=== PATIENT | male | born 1965 | race Caucasian/White ===

== ENCOUNTER → 2017-11-25 | Outpatient (CLI) | payer MEDICARE, OTHER ==
--- NOTE | 2017-11-25 10:18 | XR ---
EXAMINATION TYPE: XR toes RT DATE OF EXAM: 11/25/2017 COMPARISON: 06/17/2017 HISTORY: Right toe infection. Assess for osteomyelitis. TECHNIQUE: 2 views of the right great toe/first digit were obtained. FINDINGS: There is bony reabsorption, cortical erosion, and periosteal reaction of the distal phalanx of the right first digit. This is a distinct change from the prior radiograph of 06/17/2017. There i s overlying soft tissue swelling and distal dorsal ulceration. Small vessel atherosclerosis is seen s uggestive of underlying peripheral arterial disease. Chronic deformity and dislocation/severe subluxa tion of the second metatarsophalangeal joint as partially visualized. Hallux valgus deformity is seen as well as degenerative changes of the first metatarsal phalangeal joint and interphalangeal joint. IMPRESSION: New osseous erosion, destruction and reabsorption of greater than 50% of the distal phala nx of the first digit with periosteal reaction, soft tissue swelling and dorsal ulceration compatible with sequela of osteomyelitis. Additional chronic changes as described above.
== END | disposition home or self-care (01) ==
LOC: RADXRMAIN 09:37
PROVIDERS: ATTEND Podiatrist
DX: M79.89 Other specified soft tissue disorders (principal); M20.11 Hallux valgus (acquired), right foot

== ENCOUNTER → 2017-11-30 | Outpatient (CLI) | payer MEDICARE, OTHER ==
--- NOTE | 2017-11-30 15:35 | US ---
EXAMINATION TYPE: US venous doppler duplex LE RT DATE OF EXAM: 11/30/2017 1:36 PM COMPARISON: LOWER EXTREMITY VENOUS INSUFFICIENCY Right leg pain and right great toe wound. Left leg amputee. SIDE PERFORMED: Right 1) Color flow is present and patency is documented in the following vessels. No DVT or SVT is noted . EIV Common Femoral Vein Deep Femoral Vein Femoral Vein Popliteal Vein Proximal Calf Veins Greater Saph Vein Upper Small Saph Vein 2) There is venous reflux noted at the following venous levels: No reflux noted. IMPRESSION: 1. No venous reflux noted within the right lower extremity. 2. No incidental note made of deep venous thrombosis right lower extremity.
--- NOTE | 2017-12-06 09:48 | P.ARTDOP ---
Arterial Doppler LOWER EXTREMITY ARTERIAL DOPPLER: DATE OF SERVICE: 11/30/2017 Reason for study: Right great toe ulcer. Status post left leg amputation.. Doppler waveforms: Multiphasic on the right throughout. Pulse volume recording: Mild blunting throughout. Pressure gradients: None. Ankle-brachial indices: Greater than 1. Toe pressures: [] on the right, [] on the left Impression: Normal limited study.
== END | disposition home or self-care (01) ==
LOC: RADUSWWP 13:06
PROVIDERS: ATTEND Podiatrist
DX: M79.604 Pain in right leg (principal); M79.605 Pain in left leg
CPT/HCPCS: 93923

== ENCOUNTER → 2017-12-16 | Outpatient (CLI) | payer MEDICARE, OTHER ==
--- NOTE | 2017-12-16 14:00 | XR ---
EXAMINATION TYPE: XR foot complete RT DATE OF EXAM: 12/16/2017 CLINICAL HISTORY: Osteomyelitis of the right foot. TECHNIQUE: Frontal, lateral, and oblique images of the right foot are obtained. COMPARISON: None FINDINGS: There is extensive destructive osseous change of the distal phalanx of the great toe/first digit with only fragments remaining, a distinct change from prior of 06/17/2017. Small vessel atheros clerosis is noted lateral to the first metatarsal. Hallux valgus deformity is seen. Osteotomy defects from prior amputation of portions of the third, fourth, and fifth left digits and metatarsals are se en. There is chronic dislocation of the second distal interphalangeal joint with lateral displacement . Overlying soft tissue swelling is mild generalized. Small plantar heel spurs also seen. IMPRESSION: Or significant progression in osseous destructive change from sequela of osteomyelitis of the distal phalanx of the first digit with extensive adjacent small vessel atherosclerosis presumabl y from peripheral vascular disease an overlying soft tissue swelling. Other chronic changes are noted above.
== END ==
LOC: RADXRMAIN 12:15
PROVIDERS: ATTEND Podiatrist
DX: M86.8X7 Other osteomyelitis, ankle and foot (principal); E13.621 Other specified diabetes mellitus with foot ulcer

== ENCOUNTER → 2018-04-21 | Day surgery (SDC) | payer MEDICARE, OTHER ==
[2018-04-18 12:33] VITALS: BMI 38.1
[~2018-04-21] MED LIST: DEXAMETHASONE SOD PHOSPHATE 10 MG/ML 1 ML VIAL IV ONE; LACTATED RINGERS 1,000 ML IV ONE; LACTATED RINGERS 1,000 ML IV SCH; LIDOCAINE 1% 20 ML VIAL (10MG/ML) FOR IV START INTRADERMA ONE; LIDOCAINE 2% (PF) 20 MG/ML 2 ML VIAL INTRAARTIC ONE; MIDAZOLAM 2 MG/2 ML VIAL IV PRN; MIDAZOLAM 2 MG/2 ML VIAL ONE; ONDANSETRON 4 MG/2 ML VIAL IVP ONE; PROPOFOL 10 MG/ML 20 ML VIAL IV ONE; SCOPOLAMINE 1.5MG/72HR PATCH TRANSDERM ONE; diphenhydrAMINE 50 MG/ML 1 ML VIAL ONE; fentaNYL (PF) 50 MCG/ML 2 ML AMP IV PRN; fentaNYL (PF) 50 MCG/ML 2 ML AMP ONE
[2018-04-21 06:10] VITALS: TEMP 97.9
[2018-04-21 06:20] LABS: Glucose,Whole Blood 103 mg/dL (75-99)
[2018-04-21 08:22] LABS: Glucose,Whole Blood 76 mg/dL (75-99)
--- NOTE | 2018-04-21 08:37 | FL ---
Fluoroscopy History: Rt Great Toe Amp. 1sec fluoro time
[2018-04-21 08:42] VITALS: RESP 18
[2018-04-21 08:55] VITALS: BP 129/70; PULSE 87
--- NOTE | 2018-04-21 09:08 | P.OP ---
Date of Procedure: 04/21/18 Preoperative Diagnosis: Osteomyelitis right hallux Postoperative Diagnosis: Same Procedure(s) Performed: Modified distal Symes amputation right hallux Anesthesia: local Surgeon: Navarro Kamara Pathology: none sent Condition: stable Disposition: same day Indications for Procedure: Osteomyelitis right hallux Operative Findings: Consistent with clinical findings Description of Procedure: Patient presented to the OR 2 hours prior to foot surgery. Patient was stable after review of preop H&P labs radiographs consent no counter indication to the procedure was determined. Patient was brought to the OR and placed on the OR table in supine position. The right foot was then prepped and draped in the usual aseptic manner. Attention was then directed to the right hallux where the right hallux anesthetized using a total of 4 mL of 2% Xylocaine plain. A digital tourniquet was then applied. A linear incision was then made running from the distal aspect of the right hallux along the medial border of the right hallux nail fold to the area just proximal to the interphalangeal joint medially and dorsally. A second incision was made starting just proximal to the proximal nail fold and ending at the distal aspect of the first incision so as to remove a wedge of nail bed and nail matrix. This incision was carried down through superficial and deep fascia removing a block of tissue incorporating the nail matrix and nailbed. The wound was then carried down to the osseous tissue where the wound edges were then undermined along the dorsal aspect of the proximal phalanx of the hallux as well as the medial and lateral surface of the distal one third of the phalanx proximal. Using a sagittal saw approximately one third of the head and shaft of the proximal phalanx distally was removed and retained for pathological evaluation examination of the specimen showed some erosive changes and softening of bone plantar medially consistent with osteomyelitis. The soft tissue was then examined and several specimens of osteomyelitic bone were removed from the remaining distal phalanx. The area was copiously lavaged with sterile saline. Intraoperative radiographs were then made and this showed removal of all fragmentation of osteomyelitic bone of the distal phalanx. Also adequate removal of the proximal phalanx was removed. The wound was copiously lavaged with sterile saline solution and closed in layers using 3-0 Vicryl simper up to sutures. Skin edges were repaired with 4-0 nylon horizontal mattress sutures. The digital tourniquet was removed and adequate vascular return was noted to the right hallux. The foot and wound were then dressed with Adaptic 4 x 4's Kerlix and an Junior wrap wrapped moderate compression to secure to the foot and ankle. The patient was brought to the recovery room from the OR having tolerated procedure and anesthesia well. Patient was monitored until stable and discharged with postop instructions partial weightbearing right with surgical shoes normal diet resume all meds keep foot dry and dressing intact ice and elevate as instructed and return to clinic for follow-up on Tuesday.
== END | disposition home or self-care (01) ==
LOC: OR 05:42
PROVIDERS: ATTEND Podiatrist
DX: M86.9 Osteomyelitis, unspecified (principal); I25.10 Atherosclerotic heart disease of native coronary artery without angina pectoris; I13.0 Hypertensive heart and chronic kidney disease with heart failure and stage 1 through stage 4 chronic kidney disease, or unspecified chronic kidney disease; E11.22 Type 2 diabetes mellitus with diabetic chronic kidney disease; E11.51 Type 2 diabetes mellitus with diabetic peripheral angiopathy without gangrene; F17.210 Nicotine dependence, cigarettes, uncomplicated; N18.3 Chronic kidney disease, stage 3 (moderate); I50.30 Unspecified diastolic (congestive) heart failure; Z79.4 Long term (current) use of insulin; D63.1 Anemia in chronic kidney disease; E78.00 Pure hypercholesterolemia, unspecified; J44.9 Chronic obstructive pulmonary disease, unspecified; E87.5 Hyperkalemia; E87.2 Acidosis; R31.29 Other microscopic hematuria; E83.42 Hypomagnesemia; E55.9 Vitamin D deficiency, unspecified; Z82.49 Family history of ischemic heart disease and other diseases of the circulatory system; Z79.82 Long term (current) use of aspirin; Z79.891 Long term (current) use of opiate analgesic; Z79.899 Other long term (current) drug therapy; Z79.51 Long term (current) use of inhaled steroids; Z88.5 Allergy status to narcotic agent; Z88.7 Allergy status to serum and vaccine
CPT/HCPCS: 88304; 88311; 73660; 28124; J2250; J1200; J1100; J0690; J2405; J3010; J2704; J2001

== ENCOUNTER 2019-03-13 06:45 | Day surgery (SDC) | payer MEDICARE, OTHER ==
[2019-03-09 13:57] VITALS: BMI 38.7
[~2019-03-13 06:45] MED LIST changes: -DEXAMETHASONE SOD PHOSPHATE 10 MG/ML 1 ML VIAL IV ONE; -LACTATED RINGERS 1,000 ML IV ONE; -LIDOCAINE 1% 20 ML VIAL (10MG/ML) FOR IV START INTRADERMA ONE; +LIDOCAINE 1% 20 ML VIAL (10MG/ML) FOR IV START INTRADERMA PRN; -LIDOCAINE 2% (PF) 20 MG/ML 2 ML VIAL INTRAARTIC ONE; -MIDAZOLAM 2 MG/2 ML VIAL IV PRN; -MIDAZOLAM 2 MG/2 ML VIAL ONE; -ONDANSETRON 4 MG/2 ML VIAL IVP ONE; -PROPOFOL 10 MG/ML 20 ML VIAL IV ONE; -SCOPOLAMINE 1.5MG/72HR PATCH TRANSDERM ONE; -diphenhydrAMINE 50 MG/ML 1 ML VIAL ONE; -fentaNYL (PF) 50 MCG/ML 2 ML AMP IV PRN; -fentaNYL (PF) 50 MCG/ML 2 ML AMP ONE
[2019-03-13 07:24] VITALS: TEMP 97.5
[2019-03-13 07:33] LABS: Glucose,Whole Blood 267 mg/dL (75-99)
[2019-03-13] MEDS ORDERED: PROPOFOL 10 MG/ML 20 ML VIAL IV ONE (07:41)
[2019-03-13] MEDS ORDERED: MIDAZOLAM 2 MG/2 ML VIAL ONE (07:41)
--- NOTE | 2019-03-13 08:48 | P.PCN ---
Date of Procedure: 03/13/19 Description of Procedure: BRIEF HISTORY: Patient is a 53-year-old pleasant male scheduled for an elective colonoscopy as a part of screening for malignant neoplasm of the colon. PROCEDURE PERFORMED: Colonoscopy with polypectomy. PREOPERATIVE DIAGNOSIS: Screening for malignant neoplasm of the colon, reports colonoscopy at the age of 39. ESTIMATED BLOOD LOSS: Minimal. IV sedation per Anesthesia. PROCEDURE: After informed consent was obtained, the patient, was brought into the endoscopy unit. IV sedation was administered by Anesthesia under continuous monitoring. Digital rectal examination was normal. Initially the Olympus CF-190 flexible video colonoscope was then inserted in the rectum, gradually advanced into the cecum without any difficulty. Careful examination was performed as the scope was gradually being withdrawn. Ileocecal valve and the appendiceal orifice were visualized and appeared normal. Prep was excellent. Mucosa of the cecum, ascending colon, transverse colon, descending colon, sigmoid colon, and rectum appeared normal. 2 sessile ascending colon polyps measuring 5 mm and 6 mm in size removed with cold snare polypectomy. 3 sessile transverse colon polyps, with 2 measuring 4 and 5 mm in size removed with cold snare polypectomy and one measuring 1.3 cm in size removed with hot snare polypectomy. 3 sessile descending colon polyps measuring 2 mm, 4 mm and 5 mm removed with cold snare polypectomy. A second more distal descending colon polyp which was flat in nature and removed with cold snare polypectomy measuring 4 mm in size. A 3 mm sessile sigmoid colon polyp removed with cold snare polypectomy. Mild left- sided colonic diverticulosis. Retroflexion was performed in the rectum and no lesions were seen. Colon was somewhat spastic making complete visualization of the mucosa difficult. The patient tolerated the procedure well. IMPRESSION: 10 polyps removed with combination of cold snare and hot snare polypectomy (please see report for location and technique). Mild left colonic diverticulosis. Spastic colon. RECOMMENDATIONS: Findings of this examination were discussed with the patient and his friend. Okay to resume diet. Await pathology from polypectomy. Would recommend repeat colonoscopy in one year given the number of polyps removed, pending pathology.
[2019-03-13 09:04] VITALS: BP 142/80; PULSE 77; RESP 18
== END 2019-03-13 09:38 | disposition home or self-care (01) ==
LOC: ORWHC2ENDO 06:45
PROVIDERS: ATTEND Internal Medicine
DX: Z12.11 Encounter for screening for malignant neoplasm of colon (principal); K57.30 Diverticulosis of large intestine without perforation or abscess without bleeding; K58.9 Irritable bowel syndrome, unspecified; D12.2 Benign neoplasm of ascending colon; D12.3 Benign neoplasm of transverse colon; D12.4 Benign neoplasm of descending colon; D12.5 Benign neoplasm of sigmoid colon; Z88.5 Allergy status to narcotic agent; Z88.8 Allergy status to other drugs, medicaments and biological substances; I25.10 Atherosclerotic heart disease of native coronary artery without angina pectoris; I25.2 Old myocardial infarction; E78.5 Hyperlipidemia, unspecified; I11.0 Hypertensive heart disease with heart failure; I50.9 Heart failure, unspecified; E11.51 Type 2 diabetes mellitus with diabetic peripheral angiopathy without gangrene; F17.200 Nicotine dependence, unspecified, uncomplicated; J44.9 Chronic obstructive pulmonary disease, unspecified; G47.33 Obstructive sleep apnea (adult) (pediatric); Z99.89 Dependence on other enabling machines and devices; Z89.512 Acquired absence of left leg below knee; M10.9 Gout, unspecified; K21.9 Gastro-esophageal reflux disease without esophagitis; Z79.82 Long term (current) use of aspirin; Z79.891 Long term (current) use of opiate analgesic; Z79.899 Other long term (current) drug therapy; Z79.4 Long term (current) use of insulin
CPT/HCPCS: 88305; 45385; J2250; J2704

== ENCOUNTER 2019-06-21 10:50 | Inpatient (IN) | payer MEDICARE ==
[2019-06-21] MEDS ORDERED: fentaNYL (PF) 50 MCG/ML 2 ML AMP ONE (12:31)
[2019-06-21] MEDS ORDERED: fentaNYL (PF) 50 MCG/ML 2 ML AMP IVP ONE (12:32)
[2019-06-21] MEDS ORDERED: BIVALIRUDIN BOLUS 250 MG/50 ML IV ONE (12:39)
[2019-06-21] MEDS ORDERED: NITROGLYCERIN 1000MCG/10ML SYRINGE INTRACORON ONE (12:40)
[2019-06-21] MEDS ORDERED: BIVALIRUDIN 250 MG in SODIUM CHLORIDE 0.9% 50 ML IV ONE (12:40)
[2019-06-21] MEDS ORDERED: IV FLUID CONTINUATION 1,000 ML IV ONE (12:40)
[2019-06-21] MEDS ORDERED: IOPAMIDOL-370 125ML BTL INJ ONE (12:54)
[2019-06-21] MEDS ORDERED: MAG HYDROX/AL HYDROX/SIMETH 30 ML CUP PO PRN (13:06)
[2019-06-21] MEDS ORDERED: RX INFO: IV CONTRAST WAS GIVEN 1 EACH MISC MISCELLANE PRN (13:06)
[2019-06-21] MEDS ORDERED: ATROPINE SULFATE 0.1 MG/ML 10ML SYRINGE IV PRN (13:06)
[2019-06-21] MEDS ORDERED: NITROGLYCERIN SL TABS 0.4 MG TAB SUBLINGUAL PRN (13:06)
[2019-06-21] MEDS ORDERED: ZOLPIDEM 5 MG TAB PO PRN (13:06)
[2019-06-21] MEDS ORDERED: SODIUM CHLORIDE 0.9% 1,000 ML IV SCH (13:15)
--- NOTE | 2019-06-21 13:33 | PTCA ---
PERCUTANEOUSTRANS CORORONARY ANGIOGRAPHY Mr. Meier is a 53-year-old male with known history of end-stage renal disease on hemodialysis for 5 years, who presented to [facility] with symptoms of chest discomfort and had evidence consistent with non ST-segment elevation myocardial infarction. In view of that, he underwent cardiac catheterization by Dr. Spangler and was found to have critical stenosis involving the mid right coronary artery. He was transferred to [facility] to undergo further intervention. The risks as well as complications of the procedure were discussed with the patient who is in full understanding and agreement. PROCEDURE: Patient was brought to [facility] in a fasting semi-sedated state after receiving fentanyl and Benadryl. Using guidewire exchange technique, 6-Botswanan sheath was exchanged in the right femoral artery. Following that, the 6-Botswanan FR4 guiding catheter introduced in the system. After cannulating the right coronary ostium, a 0.014 balanced medium weight J-wire was advanced across the lesion, positioned distally. Following that, a 0.014 balanced medium weight J-wire was advanced across the lesion, positioned distally. Following that, a 2.5 x 12 mm Trek balloon was advanced and one inflation at 8 atmospheres was done. Following that the balloon was removed and a 3.0 x 15 mm Xience Fouzia stent was advanced, deployed and postdilated at 16 atmospheres. After the last inflation, after appropriate wait the balloon and the guidewire were withdrawn back in the guiding catheter. Images were obtained, repeated. Those images reveal stable successful stenting. At that point, the guiding catheter, the balloon and the guidewire were removed. The sheath was removed. Hemostasis was obtained with an Angio-Seal. There was no immediate complication. Patient was returned to his room in stable condition. Of note, the patient had no chest discomfort or EKG changes with inflation. He received Angiomax per protocol and was continued on clopidogrel. RESULTS: Successful stenting of the mid right coronary artery with reduction of stenosis from 90% to 0%. RECOMMENDATION: Patient will be continued on aspirin, Plavix and statin. The importance of dual antiplatelet treatment was discussed with the patient and his family and they are in full understanding and agreement. Duration of procedure is 22 minutes. MMODL / IJN: [id number] /
--- NOTE | 2019-06-21 13:33 | LTR ---
June 21, 2019 Re: Abdifatah Meier Dear Dr. Harris: I had the opportunity to perform coronary angioplasty and stenting on Mr. Meier at [facility] on the 21 of June and a full copy of the procedure note will be forwarded to you. In brief, he underwent successful stenting of his mid right coronary artery. I am hopeful that this procedure will stabilize his status. Thank you again for allowing me the opportunity to participate in his care. Please feel free to call for any questions. Sincerely yours, MD RACHID DarbyL / RODRÍGUEZN: [id number] /
[2019-06-21 13:59] LABS: Glucose,Whole Blood 160 mg/dL (75-99)
[2019-06-21] MEDS: oxyCODONE-APAP 10-325MG 1 EACH TAB PO PRN ×2 (15:09→21:05)
[2019-06-21 17:14] LABS: Glucose,Whole Blood 174 mg/dL (75-99)
[2019-06-21] MEDS ORDERED: KETOROLAC 0.5% OPHTH DROPS 5 ML BTL BOTH EYES PRN (17:59)
[2019-06-21] MEDS: CALCITRIOL 0.25 MCG CAP PO SCH (19:02)
[2019-06-21] MEDS: PANTOPRAZOLE 40 MG TABLET PO SCH (19:06)
[2019-06-21] MEDS ORDERED: IPRATROPIUM-ALBUTEROL 3 ML NEB INHALATION SCH (20:00)
[2019-06-21] MEDS: ATORVASTATIN 80 MG TAB PO SCH (20:01)
[2019-06-21 20:39] LABS: Glucose,Whole Blood 208 mg/dL (75-99)
[2019-06-21] MEDS ORDERED: FUROSEMIDE 40 MG TAB PO SCH (21:00)
[2019-06-21] MEDS ORDERED: INSULIN REGULAR SQ SCH (21:00)
[2019-06-21] MEDS ORDERED: METOPROLOL TARTRATE 25 MG TAB PO SCH (21:00)
[2019-06-21] MEDS ORDERED: DOCUSATE 100 MG CAP PO SCH (21:00)
[2019-06-21] MEDS ORDERED: INSULIN REGULAR 100 UNIT/ML VIAL SQ SCH (21:00)
[2019-06-21] MEDS ORDERED: ATORVASTATIN 10 MG TAB PO SCH (21:00)
[2019-06-21] MEDS: INSULIN ASPART (NovoLOG) 100 UNIT/ML VIAL SQ SCH (21:04)
[2019-06-21] MEDS ORDERED: GABAPENTIN 100 MG CAP PO SCH (22:00)
[2019-06-21] MEDS ORDERED: MAGNESIUM OXIDE 400 MG TAB PO SCH (22:00)
--- NOTE | 2019-06-21 23:18 | P.HPIM ---
History of Present Illness H&P Date: 06/21/19 Chief Complaint: RCA lesion History of presenting complaint: This is a pleasant 53-year-old patient who was transferred from [facility] here this morning. Patient was admitted there with shortness of breath and wheezing cough. Admitted with a diagnosis of CHF exacerbation and COPD exacerbation. Patient has known chronic kidney disease. Patient renal function had worsened. Patient started on hemodialysis. Patient had ruled out for acute non-Q-wave microinfarction. Patient did undergo cardiac catheterization today. Was found to have critical mid RCA lesion. Hence he was transferred down here. Patient did get a stent placed. Patient has been [facility] hemod[facility]. Hemodialysis catheter was placed per Dr. Tay from vascular surgery. This evening patient's current or chest pain. Breathing is better. Some wheezing. Did tolerate her supper. Patient also had a Copeland catheter placed at the other hospital. Patient's girlfriend is present with him. Review of systems: GEN.: Tired EYES: None HEENT: None NECK: None RESPIRATORY: Some wheezing shortness of breath CARDIOVASCULAR: None GASTROINTESTINAL: None GENITOURINARY: Copeland catheter MUSCULOSKELETAL: Chronic back pain and LYMPHATICS: None HEMATOLOGICAL: None PSYCHIATRY: None NEUROLOGICAL: Peripheral numbness Past medical history to include: Congestive heart failure from gastric dysfunction, COPD, diabetes, hyperlipidemia, hypertension, chronic kidney disease, obstructive sleep apnea, peripheral arterial disease, left below-knee habitation, shingles, Social history: Smokes about half pack a day smoking for close to 35 years occasional marijuana. Physical examination: VITAL SIGNS: 97.8, 67, 18, 153/77, 93% on 3 L GENERAL: BMI 40.1, sitting on bed not in distress. EYES: Pupils equal. Conjunctiva normal. HEENT: External appearance of nose and ears normal, oral cavity grossly normal. NECK: JVD not raised; masses not palpable. HEART: First and second heart sounds are normal; no edema. LUNGS: Respiratory rate increased, decreased breaths on some wheezing. ABDOMEN: Soft, nontender, liver spleen not palpable, no masses palpable. PSYCH: Alert and oriented x3; mood and affect normal. NEUROLOGICAL: Cranial nerves grossly intact; no facial asymmetry, power and sensation grossly intact. LYMPHATICS: No lymph nodes palpable in the axilla and neck MUSCULOSKELETAL:-Left below-knee habitation Investigations: [id number], 174, 208 Assessment: -Acute non-Q-wave microinfarction -Cardiac catheterization with stent to the mid RCA -Acute on chronic congestive heart failure from diastolic dysfunction EF of 40- 60% -Acute COPD exacerbation in a current smoker -Hyperlipidemia -Hypertensive heart disease -Chronic kidney disease stage IV progress to end-stage kidney disease currently on hemodialysis -Obstructive sleep apnea uses CPAP machine -Peripheral arterial disease -Left below-knee amputation with a prosthesis -Morbid obesity BMI 40.1 -Chronic nicotine dependence patient cigarette smoker -Chronic low back pain with arthritis -Depression otherwise specified Plan: Patient's home medications resumed. As discussed with the patient 2 days ago patient will not be put back on his MS Contin as she gets very drowsy. Hemodialysis is to continue. Accu-Chemadeline will be followed. Care was discussed with the patient question were answered. Patient probably will need hemodialysis tomorrow. Further plans after discussing with cardiology and nephrology. Depressed bronchodilators continue. Past Medical History Past Medical History: Heart Failure, COPD, Diabetes Mellitus, Eye Disorder, Hyperlipidemia, Hypertension, Myocardial Infarction ([place]), Renal Disease, Respiratory Disorder, Sleep Apnea/CPAP/BIPAP, Vascular Disorder Additional Past Medical History / Comment(s): Poor circulation in hands and legs/feet. lt foot bka, has prosthesis, past shingles 1997(face), " I take allopurinol to prevent gout", "on 2 occassions had dialysis, once in [place] and in [place]. none currently, has muscle disorder in eye Last Myocardial Infarction Date:: 2014 History of Any Multi-Drug Resistant Organisms: MRSA Date of last positivie culture/infection: approx 2015 MDRO Source:: right foot Past Surgical History: Hernia Repair, Tonsillectomy Additional Past Surgical History / Comment(s): Right foot 3rd and 4th AND 5TH toes and area of foot amputated, cyst on scrotum removed. partial amp lt foot but had non healing wound which resulted in lt bka. matilde cataracts removed-has lens implants. x3 rt inguinal hernia sx and an umb hernia repair. Past Anesthesia/Blood Transfusion Reactions: No Reported Reaction Additional Past Anesthesia/Blood Transfusion Reaction / Comment(s): States he was in the ICU after his surgery on his toes, but does not know why. Past Psychological History: Depression, Panic Disorder Additional Psychological History / Comment(s): Single, has been in extended care for several months and is now just gone home. Since arriving home he denied having increasing difficulties with his limbs, his glucose and his tobacco use. Smoking Status: Current every day smoker Past Alcohol Use History: None Reported Additional Past Alcohol Use History / Comment(s): started smoking at age 19 (off and on) currently smoking 1/2 ppd Past Drug Use History: None Reported Additional Drug Use History / Comment(s): Occas.past marijuana use. STATES NO CURRENT DRUG USE - Past Family History Father History Unknown: Yes Mother Family Medical History: Cancer, Coronary Artery Disease (CAD) Additional Family Medical History / Comment(s): Brain tumor, [place] syndrome Sister(s) Family Medical History: No Reported History Medications and Allergies Home Medications Medication Instructions Recorded Confirmed Type Isosorbide Mononitrate ER [Imdur] 60 mg PO DAILY 06/09/15 06/21/19 History Lovastatin [Mevacor] 40 mg PO HS 06/17/17 06/21/19 History Docusate [Colace] 100 mg PO BID #60 cap 07/02/17 06/21/19 Rx Gabapentin [Neurontin] 100 mg PO TID #90 cap 07/02/17 06/21/19 Rx Pantoprazole [Protonix] 40 mg PO AC-BID #60 tablet. 07/02/17 06/21/19 Rx Morphine Sulfate [Morphabond ER] 15 mg PO Q12H 07/18/17 06/21/19 History Tamsulosin [Flomax] 0.4 mg PO DAILY 04/14/18 06/21/19 History Loratadine [Claritin] 10 mg PO DAILY 04/18/18 06/21/19 History FLUoxetine HCL [PROzac] 60 mg PO DAILY 12/26/18 06/21/19 History Magnesium Oxide 400 mg PO TID 12/26/18 06/21/19 History Albuterol Inhaler [Ventolin Hfa 1 - 2 puff INHALATION RT-Q6H PRN 03/09/19 06/21/19 History Inhaler] Albuterol Nebulized [Ventolin 2.5 mg INHALATION Q4H PRN 03/09/19 06/21/19 History Nebulized] Allopurinol [Zyloprim] 200 mg PO DAILY 03/09/19 06/21/19 History Aspirin [Adult Low Dose Aspirin EC] 81 mg PO DAILY 03/09/19 06/21/19 History Calcitriol 0.25 mcg PO MOTUWETHFR 03/09/19 06/21/19 History Furosemide [Lasix] 40 mg PO BID 03/09/19 06/21/19 History amLODIPine [Norvasc] 5 mg PO DAILY 03/09/19 06/21/19 History oxyCODONE-APAP 10-325MG [Percocet 1 tab PO Q6HR PRN 03/09/19 06/21/19 History 10-325 mg] Clopidogrel [Plavix] 75 mg PO DAILY 06/21/19 06/21/19 History Furosemide [Lasix] 40 mg PO DAILY 06/21/19 06/21/19 History Insulin Regular, Human [humulin R 50 unit SQ AC-SUPPER 06/21/19 06/21/19 History U-500 Kwikpen] Insulin Regular, Human [humulin R 50 units SQ AC-BRKFST 06/21/19 06/21/19 History U-500 Kwikpen] Insulin Regular, Human [humulin R 75 units SQ AC-LUNCH 06/21/19 06/21/19 History U-500 Kwikpen] Allergies Allergy/AdvReac Type Severity Reaction Status Date / Time codeine AdvReac headache, Verified 06/21/19 19:16 DIZZY, N/V hydrocodone [From Vicodin] AdvReac Nausea & Verified 06/21/19 19:16 Vomiting tramadol AdvReac Nausea & Verified 06/21/19 19:16 Vomiting Physical Exam Vitals: Vital Signs Temp Pulse Pulse Pulse Resp BP Pulse Ox 06/21/19 21:05 97.7 F 62 18 176/77 98 06/21/19 20:12 65 06/21/19 20:02 65 98 06/21/19 17:30 97.8 F 67 18 153/77 93 L 06/21/19 16:41 66 16 156/78 97 06/21/19 14:50 63 18 146/73 98 06/21/19 14:20 62 18 168/77 98 06/21/19 13:50 73 16 148/72 90 L Intake and Output 06/21/19 06/21/19 06/22/19 14:59 22:59 06:59 Intake Total 129 447 Output Total 775 Balance 129 -328 Intake: IV 129 225 Sodium Chloride 0.9% 1, 225 000 ml @ 75 mls/hr IV . [id number] COUNTS INCLUDE 234 BEDS AT THE [facility] Rx#:[id number] Oral 222 Output: Urine 775 Other: Voiding Method Indwelling Catheter Weight 126.8 kg 126.8 kg Results Labs: Abnormal Lab Results - Last 24 Hours (Table) 06/21/19 06/21/19 06/21/19 Range/Units 13:56 17:12 20:38 POC Glucose (mg/dL) 160 H 174 H 208 H (75-99) mg/dL Thrombosis Risk Factor Assmnt - Choose All That Apply Each Factor Represents 1 point: Abnormal pulmonary function (COPD), Age 41-60 years, Medical pt on bed rest, Obesity (BMI >25) Thrombosis Risk Factor Assessment Total Risk Factor Score: 4 Thrombosis Risk Factor Assessment Level: Moderate Risk
[2019-06-22 03:13] LABS: Glucose,Whole Blood 211 mg/dL (75-99)
[2019-06-22 06:40] LABS: Glucose,Whole Blood 209 mg/dL (75-99)
[2019-06-22] MEDS: PANTOPRAZOLE 40 MG TABLET PO SCH ×2 (06:58→20:32)
[2019-06-22] MEDS: INSULIN REGULAR 100 UNIT/ML VIAL SQ SCH ×3 (06:58→17:47)
[2019-06-22] MEDS: INSULIN ASPART (NovoLOG) 100 UNIT/ML VIAL SQ SCH ×4 (06:58→20:40)
[2019-06-22] MEDS ORDERED: INSULIN REGULAR 100 UNIT/ML VIAL SQ SCH ×3 (07:30→12:30)
[2019-06-22 08:05] LABS: Potassium 4.7 mmol/L (3.5-5.1)
[2019-06-22] MEDS ORDERED: ISOSORBIDE MONONITRATE ER 60 MG TAB.ER.24H PO SCH (09:00)
[2019-06-22] MEDS ORDERED: CLOPIDOGREL 75 MG TAB PO SCH (09:00)
[2019-06-22] MEDS ORDERED: ASPIRIN 81 MG PO SCH (09:00)
[2019-06-22] MEDS ORDERED: FUROSEMIDE 40 MG TAB PO SCH (09:00)
[2019-06-22] MEDS ORDERED: LORATADINE 10 MG TAB PO SCH (09:00)
[2019-06-22 11:51] VITALS: BMI 36.8
[2019-06-22 11:56] LABS: Glucose,Whole Blood 73 mg/dL (75-99)
--- NOTE | 2019-06-22 12:46 | P.PN ---
Subjective Progress Note Date: 06/22/19 this is a 53-year-old gentleman with history of end-stage renal disease on hemodialysis for 5 years who presented to [facility] with symptoms of chest discomfort and had evidence consistent with non-ST elevation myocardial infarction. He underwent a cardiac catheterization and was found to have a critical stenosis involving the mid RCA. He was transferred here to [facility] where the patient underwent angioplasty and stenting of the RCA.his blood pressure this morning 168/80, heart rate in the 70s, 93% on 3 L of oxygen. Sodium 139, potassium 4.7, BUN 51, creatinine 2.8.she is currently on Norvasc 5 mg daily, Ecotrin 81 mg daily, Lipitor 80 mg daily, Plavix 75 mg daily, Lasix 40 mg daily. We will increase his dose of metoprolol to 50 mg twice a day.he was seen and examined today, denied any chest discomfort and breathing is stable. He just complains of feeling tired. Objective - Vital Signs Vital signs: Vital Signs Temp 98.7 F 06/22/19 08:00 Pulse 71 06/22/19 08:00 Resp 20 06/22/19 08:00 BP 169/81 06/22/19 08:00 Pulse Ox 98 06/22/19 08:00 Intake & Output 06/21/19 06/22/19 06/22/19 18:59 06:59 18:59 Intake Total 576 120 Output Total 775 400 Balance -199 -280 Weight 126.8 kg 116.5 kg 116.5 kg Intake: IV 354 Sodium Chloride 0.9% 1, 225 000 ml @ 75 mls/hr IV . [id number] [facility] Rx#:[id number] Oral 222 120 Output: Urine 775 400 Other: Voiding Method Indwelling Catheter Indwelling Catheter # Bowel Movements 2 - Exam PHYSICAL EXAMINATION: GENERAL:D3-year-old gentleman in no acute distress at the time of my examination HEENT: Head is atraumatic, normocephalic. Pupils equal, round. Sclera anicteric. Conjunctiva are clear. Mucous membranes of the mouth are moist. Neck is supple. There is no elevated jugular venous pressure.no carotid bruit is heard. HEART EXAMINATION: [Heart S1, S2 normal. No murmur or gallop heard.] CHEST EXAMINATION:lungs reveal scattered coarse wheezing throughout ABDOMEN: [ Soft, nontender. Bowel sounds are heard. No organomegaly noted]. EXTREMITIES:[ 2+ peripheral pulse with no evidence of peripheral edema and no calf tenderness noted].Right groin soft, no evidence of any hematoma, left below the knee amputation NEUROLOGIC [patient is awake, alert and oriented 3.] . - Labs CBC & Chem 7: 06/22/19 07:08 Labs: Abnormal Lab Results - Last 24 Hours (Table) 06/21/19 06/21/19 06/21/19 Range/Units 13:56 17:12 20:38 Carbon Dioxide (22-30) mmol/L BUN (9-20) mg/dL Creatinine (0.66-1.25) mg/dL Glucose (74-99) mg/dL POC Glucose (mg/dL) 160 H 174 H 208 H (75-99) mg/dL 06/22/19 06/22/19 06/22/19 Range/Units 03:11 06:39 07:08 Carbon Dioxide 31 H (22-30) mmol/L BUN 51 H (9-20) mg/dL Creatinine 2.87 H (0.66-1.25) mg/dL Glucose 182 H (74-99) mg/dL POC Glucose (mg/dL) 211 H 209 H (75-99) mg/dL 06/22/19 Range/Units 11:55 Carbon Dioxide (22-30) mmol/L BUN (9-20) mg/dL Creatinine (0.66-1.25) mg/dL Glucose (74-99) mg/dL POC Glucose (mg/dL) 73 L (75-99) mg/dL Assessment and Plan Plan: assessment and plan #1non-ST elevation myocardial infarction, status post angioplasty and stenting of the right coronary artery #2 end-stage renal disease on hemodialysis #3 hyperlipidemia #4COPD with exacerbation #5 nicotine dependence #6 hypertension #7 obstructive sleep apnea #8 PAD #9 left below the knee amputation with prosthesis #10 depression plan Will obtain an echocardiogram with Doppler study. We will also increase the dose of beta kellen to 50 mg one tablet by mouth twice a day. Continue to monitor the patient for another 24-48 hours. DNP note has been reviewed, I agree with a documented findings and plan of care. Patient was seen and examined.
--- NOTE | 2019-06-22 12:57 | P.PN ---
Subjective Patient is seen in follow-up for acute kidney injury on chronic kidney disease. Patient has chronic kidney disease stage III with baseline creatinine near 2.5. Etiology is cardiorenal syndrome and diabetic kidney disease. Patient was transferred here from [facility] after cardiac catheterization revealed critical lesion in the RCA. While at [facility], patient was started on hemodialysis due to persistent volume overload. Has P- cath. He was transferred here for cardiac intervention. Patient had a stent placed to the RCA yesterday. Currently denies any chest pain or shortness of breath. Vital signs are stable. General: The patient appeared well nourished and normally developed. HEENT: Head exam is unremarkable. Neck is without jugular venous distension. LUNGS: Lungs are clear to auscultation and percussion. Breath sounds decreased. HEART: Rate and Rhythm are regular. First and second heart sounds normal. No murmurs, rubs or gallops. ABDOMEN: Abdominal exam reveals normal bowel sounds. Non-tender and non- distended. No evidence of peritonitis. EXTREMITITES: No clubbing, cyanosis, or edema. BKA noted. Objective - Vital Signs Vital signs: Vital Signs Temp 98.7 F 06/22/19 08:00 Pulse 71 06/22/19 08:00 Resp 20 06/22/19 08:00 BP 169/81 06/22/19 08:00 Pulse Ox 98 06/22/19 08:00 Intake & Output 06/21/19 06/22/19 06/22/19 18:59 06:59 18:59 Intake Total 576 120 Output Total 775 400 Balance -199 -280 Weight 126.8 kg 116.5 kg 116.5 kg Intake: IV 354 Sodium Chloride 0.9% 1, 225 000 ml @ 75 mls/hr IV . [id number] [facility] Rx#:[id number] Oral 222 120 Output: Urine 775 400 Other: Voiding Method Indwelling Catheter Indwelling Catheter # Bowel Movements 2 - Labs CBC & Chem 7: 06/22/19 07:08 Labs: Abnormal Lab Results - Last 24 Hours (Table) 06/21/19 06/21/19 06/21/19 Range/Units 13:56 17:12 20:38 Carbon Dioxide (22-30) mmol/L BUN (9-20) mg/dL Creatinine (0.66-1.25) mg/dL Glucose (74-99) mg/dL POC Glucose (mg/dL) 160 H 174 H 208 H (75-99) mg/dL 06/22/19 06/22/19 06/22/19 Range/Units 03:11 06:39 07:08 Carbon Dioxide 31 H (22-30) mmol/L BUN 51 H (9-20) mg/dL Creatinine 2.87 H (0.66-1.25) mg/dL Glucose 182 H (74-99) mg/dL POC Glucose (mg/dL) 211 H 209 H (75-99) mg/dL 06/22/19 Range/Units 11:55 Carbon Dioxide (22-30) mmol/L BUN (9-20) mg/dL Creatinine (0.66-1.25) mg/dL Glucose (74-99) mg/dL POC Glucose (mg/dL) 73 L (75-99) mg/dL Assessment and Plan Plan: Assessment: 1. Acute kidney injury secondary to ATN secondary to hemodynamic instability and cardiorenal syndrome. Currently hemodialysis dependent mostly for volume overload. He has a permacath. 2. Chronic kidney disease stage III with baseline creatinine near 2.5 secondary to diabetic kidney disease and cardiorenal syndrome. 3. Insulin-dependent diabetes mellitus. 4. Coronary artery disease status post cardiac catheterization and stent placement to the RCA on June 21. 5. Acute systolic CHF with ejection fraction of 45-50%. 6. Chronic kidney disease mineral bone disease maintained on calcitriol. Next line 7. Hypertension with chronic kidney disease. Controlled. Plan: Hemodialysis today. Outpatient hemodialysis has been set up. Increase Lasix to 40 mg orally twice daily. Monitor for renal recovery outpatient.
[2019-06-22] MEDS: IPRATROPIUM-ALBUTEROL 3 ML NEB INHALATION SCH ×3 (13:00→19:33)
[2019-06-22] MEDS: oxyCODONE-APAP 10-325MG 1 EACH TAB PO PRN ×2 (16:10→20:35)
[2019-06-22] MEDS: amLODIPine 5 MG TAB PO SCH (16:48)
[2019-06-22 17:06] LABS: Glucose,Whole Blood 117 mg/dL (75-99)
[2019-06-22] MEDS ORDERED: cloNIDine HCL 0.1 MG TAB PO STA (17:58)
[2019-06-22 20:22] LABS: Glucose,Whole Blood 109 mg/dL (75-99)
[2019-06-22] MEDS: METOPROLOL TARTRATE 50 MG TAB PO SCH (20:32)
[2019-06-22] MEDS: ATORVASTATIN 80 MG TAB PO SCH (20:32)
[2019-06-22] MEDS: ISOSORBIDE MONONITRATE ER 60 MG TAB.ER.24H PO SCH (20:32)
[2019-06-22] MEDS: CLOPIDOGREL 75 MG TAB PO SCH (20:33)
[2019-06-22] MEDS: CALCITRIOL 0.25 MCG CAP PO SCH (20:33)
[2019-06-22] MEDS: ALLOPURINOL 100 MG TAB PO SCH (20:33)
[2019-06-22] MEDS: FLUoxetine HCL 20 MG CAP PO SCH (20:33)
[2019-06-22] MEDS: guaiFENesin 600 MG TABLET.ER PO SCH ×2 (20:33→20:41)
[2019-06-22] MEDS: TAMSULOSIN 0.4 MG CAP.ER.24H PO SCH (20:34)
[2019-06-22] MEDS: FUROSEMIDE 40 MG TAB PO SCH (20:34)
[2019-06-22] MEDS: ASPIRIN 81 MG PO SCH (20:39)
[2019-06-22 23:23] LABS: Glucose,Whole Blood 84 mg/dL (75-99)
--- NOTE | 2019-06-22 23:33 | P.PN ---
Progress Note - Text Progress Note Date: 06/22/19 Chief Complaint: RCA lesion History of presenting complaint: This is a pleasant 53-year-old patient who was transferred from [facility] here this morning. Patient was admitted there with shortness of breath and wheezing cough. Admitted with a diagnosis of CHF exacerbation and COPD exacerbation. Patient has known chronic kidney disease. Patient renal function had worsened. Patient started on hemodialysis. Patient had ruled out for acute non-Q-wave microinfarction. Patient did undergo cardiac catheterization - critical mid RCA lesion. Hence he Hemodialysis catheter was placed per Dr. Tay from vascular surgery. had a [place] catheter placed at the other hospital. Today-laying in bed. Comfortable. No new issues. Breathing is better. Getting bronchodilators. Hemodialysis today Review of systems: Was done for constitutional, cardiovascular, GI, pulmonary. relevant finding as above Active Medications Al Hydroxide/Mg Hydroxide (Maalox) 30 ml PO Q4HR PRN PRN Reason: Heartburn Albuterol/Ipratropium (Duoneb 0.5 Mg-3 Mg/3 Ml Soln) 3 ml INHALATION RT-QID [facility] Last Admin: 06/22/19 19:33 Dose: 3 ml Documented by: Allopurinol (Zyloprim) 200 mg PO DAILY [facility] Last Admin: 06/22/19 20:33 Dose: 200 mg Documented by: Amlodipine Besylate (Norvasc) 5 mg PO DAILY [facility] Last Admin: 06/22/19 16:48 Dose: 5 mg Documented by: Aspirin (Aspirin) 81 mg PO DAILY [facility] Last Admin: 06/22/19 20:39 Dose: Not Given Documented by: Atorvastatin Calcium (Lipitor) 80 mg PO HS [facility] Last Admin: 06/22/19 20:32 Dose: 80 mg Documented by: Atropine Sulfate (Atropine) 0.5 mg IV ONCE PRN PRN Reason: Symptomatic Bradycardia Calcitriol (Rocaltrol) 0.25 mcg PO MOTUWETHFR [facility] Last Admin: 06/22/19 20:33 Dose: 0.25 mcg Documented by: Clopidogrel Bisulfate (Plavix) 75 mg PO DAILY [facility] Last Admin: 06/22/19 20:33 Dose: 75 mg Documented by: Fluoxetine HCl (Prozac) 60 mg PO DAILY [facility] Last Admin: 06/22/19 20:33 Dose: 60 mg Documented by: Furosemide (Lasix) 40 mg PO BID@0900,1600 [facility] Last Admin: 06/22/19 20:34 Dose: 40 mg Documented by: Guaifenesin (Mucinex) 1,200 mg PO Q12HR [facility] Last Admin: 06/22/19 20:41 Dose: Not Given Documented by: Insulin Aspart (Novolog) 0 unit SQ ACHS [facility]; Protocol Last Admin: 06/22/19 20:40 Dose: Not Given Documented by: Insulin Human Regular (Humulin R) 50 unit SQ AC-SUPPER [facility] Last Admin: 06/22/19 17:47 Dose: 50 unit Documented by: Insulin Human Regular (Humulin R) 50 unit SQ AC-BRKFST [facility] Last Admin: 06/22/19 06:58 Dose: 50 unit Documented by: Insulin Human Regular (Humulin R) 75 unit SQ AC-LUNCH [facility] Last Admin: 06/22/19 13:39 Dose: Not Given Documented by: Isosorbide Mononitrate (Imdur) 60 mg PO DAILY [facility] Last Admin: 06/22/19 20:32 Dose: 60 mg Documented by: Metoprolol Tartrate (Lopressor) 50 mg PO BID [facility] Last Admin: 06/22/19 20:32 Dose: 50 mg Documented by: Miscellaneous Information (Rx Info: Iv Contrast Was Given) 1 each MISCELLANE DAILY PRN PRN Reason: Per Protocol Stop: 06/23/19 13:06 Nitroglycerin (Nitrostat) 0.4 mg SUBLINGUAL Q5M PRN PRN Reason: Chest Pain Oxycodone/Acetaminophen (Percocet 10-325) 1 each PO Q6H PRN PRN Reason: Pain Last Admin: 06/22/19 20:35 Dose: 1 each Documented by: Pantoprazole Sodium (Protonix) 40 mg PO AC-BID [facility] Last Admin: 06/22/19 20:32 Dose: 40 mg Documented by: Tamsulosin HCl (Flomax) 0.4 mg PO DAILY [facility] Last Admin: 06/22/19 20:34 Dose: 0.4 mg Documented by: Zolpidem Tartrate (Ambien) 5 mg PO HS PRN PRN Reason: Insomnia Physical examination: VITAL SIGNS: 98.7, 71, 18, 169/81, 98% on 3 L GENERAL: Laying in bed, comfortable EYES: Pupils equal. Conjunctiva normal. HEENT: External appearance of nose and ears normal, oral cavity grossly normal. NECK: JVD not raised; masses not palpable. HEART: First and second heart sounds are normal; no edema. LUNGS: Respiratory rate increased, decreased breaths on some wheezing. ABDOMEN: Soft, nontender, liver spleen not palpable, no masses palpable. PSYCH: Alert and oriented x3; mood and affect normal. 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 currently on hemodialysis -Obstructive sleep apnea uses CPAP machine -Peripheral arterial disease -Left below-knee amputation with a prosthesis -Morbid obesity BMI 40.1 -Chronic nicotine dependence patient cigarette smoker -Chronic low back pain with arthritis -Depression otherwise specified Plan: Patient got hemodialysis today. Continue current medication treatment plan. Abdomen stable hopefully can be discharged tomorrow. Follow with cardiology and nephrology.
[2019-06-23 04:53] VITALS: RESP 18
[2019-06-23 04:58] LABS: Glucose,Whole Blood 159 mg/dL (75-99)
[2019-06-23 06:21] LABS: Glucose,Whole Blood 212 mg/dL (75-99)
[2019-06-23 06:50] LABS: Glucose,Whole Blood 182 mg/dL (75-99)
[2019-06-23] MEDS: INSULIN ASPART (NovoLOG) 100 UNIT/ML VIAL SQ SCH ×2 (07:02→12:10)
[2019-06-23] MEDS: PANTOPRAZOLE 40 MG TABLET PO SCH (07:02)
[2019-06-23] MEDS: INSULIN REGULAR 100 UNIT/ML VIAL SQ SCH ×3 (07:39→12:11)
[2019-06-23] MEDS: IPRATROPIUM-ALBUTEROL 3 ML NEB INHALATION SCH ×2 (08:03→12:44)
--- NOTE | 2019-06-23 08:42 | P.PN ---
Subjective Progress Note Date: 06/23/19 Principal diagnosis: Patient is seen in follow-up for acute kidney injury on chronic kidney disease. Admitted with a diagnosis of CHF exacerbation and COPD exacerbation. Patient has chronic kidney disease stage III with baseline creatinine near 2.5, secondary to diabetic nephropathy. Etiology is cardiorenal syndrome and diabetic kidney disease. Patient was transferred here from [facility] after cardiac catheterization revealed critical lesion in the RCA. While at [facility], patient was started on hemodialysis due to persistent volume overload. Has P-cath. He was transferred here for cardiac intervention. Patient had a stent placed to the RCA 06/21/2019. He is feeling well and denies any complaints no chest pain shortness of breath nausea vomiting fever chills cough. Ambulatory He claims he is making large amounts of urine although has not been documented well. He had 2000 mL ultrafiltration during dialysis yesterday. Urine output is documented at only 100 mL this morning and 1175 yesterday. His creatinine was 2.87 yesterday predialysis Objective - Vital Signs Vital signs: Vital Signs Temp 97.8 F 06/23/19 04:00 Pulse 74 06/23/19 08:15 Resp 18 06/23/19 04:00 BP 145/82 06/23/19 04:00 Pulse Ox 98 06/23/19 04:00 Intake & Output 06/22/19 06/23/19 06/23/19 18:59 06:59 18:59 Intake Total 360 Output Total 2100 Balance 360 -2100 Weight 116.5 kg 119 kg Intake: Oral 360 Output: Urine 100 Hemodialysis 2000 Other: Voiding Method Toilet Urinal Indwelling Catheter # Voids 3 Vital signs are stable. General: The patient appeared well nourished and normally developed. HEENT: Head exam is unremarkable. Neck is without jugular venous distension. LUNGS: Lungs a significant for crackles on the left base not clear but cough. Right side is normal HEART: Rate and Rhythm are regular. First and second heart sounds normal. No murmurs, rubs or gallops. ABDOMEN: Abdominal exam reveals normal bowel sounds. Non-tender and non- distended. No evidence of peritonitis. EXTREMITITES: No clubbing, cyanosis, or edema. BKA noted on the left, remote Neurologically awake alert oriented. - Labs CBC & Chem 7: 06/22/19 07:08 Labs: Abnormal Lab Results - Last 24 Hours (Table) 06/22/19 06/22/19 06/22/19 Range/Units 11:55 17:04 20:21 POC Glucose (mg/dL) 73 L 117 H 109 H (75-99) mg/dL 06/23/19 06/23/19 06/23/19 Range/Units 04:56 06:19 06:49 POC Glucose (mg/dL) 159 H 212 H 182 H (75-99) mg/dL Assessment and Plan Assessment: Assessment: 1. Acute kidney injury secondary to ATN secondary to hemodynamic instability and cardiorenal syndrome. Currently hemodialysis dependent mostly for volume overload. He has a permacath. Last dialysis was yesterday 06/22/2019. Has urine output of 11 75 mL creatinine is 2.87 on 06/22/2019 predialysis he should be able to come off of dialysis 2. Chronic kidney disease stage III with baseline creatinine near 2.5 secondary to diabetic kidney disease and cardiorenal syndrome. 3. Insulin-dependent diabetes mellitus. 4. Coronary artery disease status post cardiac catheterization and stent placement to the RCA on June 21. 5. Acute systolic CHF with ejection fraction of 45-50%. 6. Chronic kidney disease mineral bone disease maintained on calcitriol. Next line 7. Hypertension with chronic kidney disease. Controlled. Plan: He could be discharged. He has an appointment at the [facility] dialysis unit for possible dialysis on Tuesday. Looks like he may have recovered so I have asked him to measure urine output every time he urinates. We will reassess the need for hemodialysis on Tuesday at the dialysis unit. Diet is to follow his diabetic restrictions otherwise because of good urine output his potassium and phosphorus should be not a problem
[2019-06-23] MEDS: guaiFENesin 600 MG TABLET.ER PO SCH (08:48)
[2019-06-23] MEDS: FLUoxetine HCL 20 MG CAP PO SCH (08:48)
[2019-06-23] MEDS: METOPROLOL TARTRATE 50 MG TAB PO SCH (08:48)
[2019-06-23] MEDS: ASPIRIN 81 MG PO SCH (08:48)
[2019-06-23] MEDS: ALLOPURINOL 100 MG TAB PO SCH (08:48)
[2019-06-23] MEDS: ISOSORBIDE MONONITRATE ER 60 MG TAB.ER.24H PO SCH (08:48)
[2019-06-23] MEDS: amLODIPine 5 MG TAB PO SCH (08:48)
[2019-06-23] MEDS: oxyCODONE-APAP 10-325MG 1 EACH TAB PO PRN (08:48)
[2019-06-23] MEDS: FUROSEMIDE 40 MG TAB PO SCH (08:48)
[2019-06-23] MEDS: CLOPIDOGREL 75 MG TAB PO SCH (08:48)
[2019-06-23] MEDS: TAMSULOSIN 0.4 MG CAP.ER.24H PO SCH (08:49)
[2019-06-23 11:59] LABS: Glucose,Whole Blood 158 mg/dL (75-99)
[2019-06-23 12:10] VITALS: BP 139/68; PULSE 62; TEMP 97.5
--- NOTE | 2019-06-23 12:58 | P.PN ---
Subjective This is a pleasant 53-year-old male past medical history significant for end-stage renal disease on hemodialysis status post successful stent placement in the setting of a non-ST elevated myocardial infarction, hypertension, dyslipidemia, COPD, chronic nicotine dependence, peripheral vascular disease status post left BKA and chronic nicotine dependence. He is seen and examined sitting up in bed in no acute distress. He denies symptoms of chest discomfort, shortness of breath, dizziness or palpitations. Blood pressure 139/68 heart rate 62 afebrile maintaining oxygen saturation on room air. He underwent hemodialysis yesterday. GENERAL: Well-appearing, well-nourished and in no acute distress. NECK: Supple without JVD or thyromegaly. LUNGS: Breath sounds clear to auscultation bilaterally. Respiration equal and unlabored. No wheezes, rales or rhonchi. HEART: Regular rate and rhythm without murmurs, rubs or gallops. S1 and S2 heard. EXTREMITIES: Normal range of motion, no edema. No clubbing or cyanosis. Left BKA. Right femoral access site clean, dry and intact with no evidence of hematoma, bleeding or ecchymosis. Distal pulses strong and intact. ASSESSMENT Non-ST elevated myocardial infarction status post angioplasty of the RCA maintained on dual antiplatelet therapy End-stage renal disease on hemodialysis Dyslipidemia Hypertension Peripheral vascular disease status post left BKA COPD Obstructive sleep apnea Chronic nicotine dependence Obesity, BMI 37 PLAN Stable for discharge from a cardiac perspective. The importance of dual antiplatelet therapy discussed with the patient. Follow-up appointment in the office with Dr. Spangler. Nurse Practitioner note has been reviewed, I agree with a documented findings and plan of care. Patient was seen and examined. Objective - Vital Signs Vital signs: Vital Signs Temp 97.5 F L 06/23/19 12:00 Pulse 62 06/23/19 12:00 Resp 18 06/23/19 12:00 BP 139/68 06/23/19 12:00 Pulse Ox 92 L 06/23/19 12:00 Intake & Output 06/22/19 06/23/19 06/23/19 18:59 06:59 18:59 Intake Total 360 240 Output Total 2100 Balance 360 -2100 240 Weight 116.5 kg 119 kg Intake: Oral 360 240 Output: Urine 100 Hemodialysis 2000 Other: Voiding Method Toilet Toilet Urinal Urinal Indwelling Catheter # Voids 3 - Labs CBC & Chem 7: 06/22/19 07:08 Labs: Abnormal Lab Results - Last 24 Hours (Table) 06/22/19 06/22/19 06/23/19 Range/Units 17:04 20:21 04:56 POC Glucose (mg/dL) 117 H 109 H 159 H (75-99) mg/dL 06/23/19 06/23/19 06/23/19 Range/Units 06:19 06:49 11:47 POC Glucose (mg/dL) 212 H 182 H 158 H (75-99) mg/dL
--- NOTE | 2019-06-23 23:37 | P.DS ---
Providers Date of admission: 06/21/19 12:30 Expected date of discharge: 06/23/19 Attending physician: Ruben Paz Consults: 06/21/19 13:06 Consult Physician Routine Consulting Provider: Iron Mendez Consult Reason/Comments: Post Interventional patient Do you want consulting provider notified?: Already Contacted 06/21/19 13:07 Consult Physician Routine Consulting Provider: Marci Tamez Reason/Comments: ckd Do you want consulting provider notified?: Yes Primary care physician: [facility] Hospital Course: Chief Complaint: RCA lesion Hospital course: This is a pleasant 53-year-old patient who was transferred from [facility] . admitted there with shortness of breath and wheezing cough. Admitted with a diagnosis of CHF exacerbation and COPD exacerbation. Patient has known chronic kidney disease. Patient renal function had worsened. Patient started on hemodialysis. Patient had ruled in for acute non-Q-wave myocardial infarction. undergo cardiac catheterization - critical mid RCA lesion. Hemodialysis catheter was placed per Dr. Tay from vascular surgery. had a [place] catheter placed at the other hospital.successful stenting of the RCA was done. Today-doing much better. Breathing is better. No chest pain. Tolerated diet. Has a schedule for hemodialysis. Cleared by consultants for discharge. care was discussed with the patient and discomfort. Discharge statement Consultants: [facility] -[facility] Physical examination: VITAL SIGNS: 97.5, 62, 18, 139/68, 92% room air GENERAL: sitting up, comfortable EYES: Pupils equal. Conjunctiva normal. HEENT: External appearance of nose and ears normal, oral cavity grossly normal. NECK: JVD not raised; masses not palpable. HEART: First and second heart sounds are normal; no edema. LUNGS: Respiratory rate normal, decreased breaths . ABDOMEN: Soft, nontender, liver spleen not palpable, no masses palpable. PSYCH: Alert and oriented x3; mood and affect normal. 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 currently on hemodialysis -Obstructive sleep apnea uses CPAP machine -Peripheral arterial disease -Left below-knee amputation with a prosthesis -Morbid obesity BMI 40.1 -Chronic nicotine dependence patient cigarette smoker -Chronic low back pain with arthritis -Depression otherwise specified disposition: Home Patient Condition at Discharge: Stable Plan - Discharge Summary New Discharge Prescriptions: New Atorvastatin [Lipitor] 80 mg PO HS #90 tab Metoprolol Tartrate [Lopressor] 50 mg PO BID #180 tab Nitroglycerin Sl Tabs [Nitrostat] 0.4 mg SUBLINGUAL Q5M PRN #25 tab PRN Reason: Chest Pain amLODIPine [Norvasc] 5 mg PO DAILY #30 tab Clopidogrel [Plavix] 75 mg PO DAILY #90 tab Continue Isosorbide Mononitrate ER [Imdur] 60 mg PO DAILY Docusate [Colace] 100 mg PO BID #60 cap Gabapentin [Neurontin] 100 mg PO TID #90 cap Pantoprazole [Protonix] 40 mg PO AC-BID #60 tablet. Tamsulosin [Flomax] 0.4 mg PO DAILY FLUoxetine HCL [PROzac] 60 mg PO DAILY oxyCODONE-APAP 10-325MG [Percocet 10-325 mg] 1 tab PO Q6HR PRN PRN Reason: Pain Albuterol Nebulized [Ventolin Nebulized] 2.5 mg INHALATION Q4H PRN PRN Reason: Shortness Of Breath Albuterol Inhaler [Ventolin Hfa Inhaler] 1 - 2 puff INHALATION RT-Q6H PRN PRN Reason: Shortness Of Breath Allopurinol [Zyloprim] 200 mg PO DAILY Calcitriol 0.25 mcg PO MOTUWETHFR Aspirin [Adult Low Dose Aspirin EC] 81 mg PO DAILY Furosemide [Lasix] 40 mg PO DAILY Insulin Regular, Human [humulin R U-500 Kwikpen] 50 units SQ AC-BRKFST Insulin Regular, Human [humulin R U-500 Kwikpen] 75 units SQ AC-LUNCH Insulin Regular, Human [humulin R U-500 Kwikpen] 50 unit SQ AC-SUPPER Discontinued Lovastatin [Mevacor] 40 mg PO HS Morphine Sulfate [Morphabond ER] 15 mg PO Q12H Loratadine [Claritin] 10 mg PO DAILY Magnesium Oxide 400 mg PO TID Furosemide [Lasix] 40 mg PO BID amLODIPine [Norvasc] 5 mg PO DAILY Clopidogrel [Plavix] 75 mg PO DAILY Discharge Medication List Isosorbide Mononitrate ER [Imdur] 60 mg PO DAILY 06/09/15 [History] Docusate [Colace] 100 mg PO BID #60 cap 07/02/17 [Rx] Gabapentin [Neurontin] 100 mg PO TID #90 cap 07/02/17 [Rx] Pantoprazole [Protonix] 40 mg PO AC-BID #60 tablet.dr 07/02/17 [Rx] Tamsulosin [Flomax] 0.4 mg PO DAILY 04/14/18 [History] FLUoxetine HCL [PROzac] 60 mg PO DAILY 12/26/18 [History] Albuterol Inhaler [Ventolin Hfa Inhaler] 1 - 2 puff INHALATION RT-Q6H PRN 03/09/19 [History] Albuterol Nebulized [Ventolin Nebulized] 2.5 mg INHALATION Q4H PRN 03/09/19 [History] Allopurinol [Zyloprim] 200 mg PO DAILY 03/09/19 [History] Aspirin [Adult Low Dose Aspirin EC] 81 mg PO DAILY 03/09/19 [History] Calcitriol 0.25 mcg PO MOTUWETHFR 03/09/19 [History] oxyCODONE-APAP 10-325MG [Percocet 10-325 mg] 1 tab PO Q6HR PRN 03/09/19 [History] Furosemide [Lasix] 40 mg PO DAILY 06/21/19 [History] Insulin Regular, Human [humulin R U-500 Kwikpen] 50 unit SQ AC-SUPPER 06/21/19 [History] Insulin Regular, Human [humulin R U-500 Kwikpen] 50 units SQ AC-BRKFST 06/21/19 [History] Insulin Regular, Human [humulin R U-500 Kwikpen] 75 units SQ AC-LUNCH 06/21/19 [History] Atorvastatin [Lipitor] 80 mg PO HS #90 tab 06/23/19 [Rx] Clopidogrel [Plavix] 75 mg PO DAILY #90 tab 06/23/19 [Rx] Metoprolol Tartrate [Lopressor] 50 mg PO BID #180 tab 06/23/19 [Rx] Nitroglycerin Sl Tabs [Nitrostat] 0.4 mg SUBLINGUAL Q5M PRN #25 tab 06/23/19 [Rx] amLODIPine [Norvasc] 5 mg PO DAILY #30 tab 06/23/19 [Rx] Follow up Appointment(s)/Referral(s): Marci Tamez MD [STAFF PHYSICIAN] - 1 Week (Please follow up at dialysis.) López Harris DO [Primary Care Provider] - 1 Week (Please follow up after the holidays with your primary physician.) Nathaly Spangler MD [STAFF PHYSICIAN] - 07/09/19 10:30 am Patient Instructions/Handouts: Heart Healthy Diet (DC), Coronary Intravascular Stent Placement (DC) Activity/Diet/Wound Care/Special Instructions: Hemodialysis - [facility] - Chair time - Tuesday, Tuesday, Tuesday @4:30 p.m. First appointment is Tuesday 06/26 @4:00 p.m. (due to the holiday schedule will be different) CARDIAC CATH 1. Support your puncture site by applying firm, steady pressure whenever you cough, laugh, sneeze or bear down to have a bowel movement (2-day restriction). 2. Watch for any excessive bruising, active bleeding, a firm knot forming under your skin, extreme tenderness and signs of infection (redness, swelling, fever). 3. Shower daily, do not soak puncture in a tub bath, jacuzzi, pool, salazar etc. for 1 week. This is to prevent risk of infection. 4. Drink plenty of fluids the day of and day after your procedure to flush contrast dye out of your kidneys. 5. Take all medications as directed. Never stop any new medication without your physicians OK. 6. No driving for 2 days after procedure. 7. 10- pound weight lifting restriction for 1 week. 8. Low sodium/low fat diet. 9. Activity limited until follow up appointment with your design assembler. In case of any problems, please call [facility] @ [phone] Discharge Disposition: HOME SELF-CARE
== END 2019-06-23 15:00 | disposition home or self-care (01) | DRG 246 ==
LOC: 3SCARD 12:30
PROVIDERS: ADMIT Hospitalist; ATTEND Hospitalist
PROC: 027034Z Dilation of Coronary Artery, One Artery with Drug-eluting Intraluminal Device, Percutaneous Approach (ICD-10-PCS; 2019-06-21)
PROC: 5A1D70Z Performance of Urinary Filtration, Intermittent, Less than 6 Hours Per Day (ICD-10-PCS; principal; 2019-06-21 12:00)
DX: I21.4 Non-ST elevation (NSTEMI) myocardial infarction (principal); I50.43 Acute on chronic combined systolic (congestive) and diastolic (congestive) heart failure; N17.0 Acute kidney failure with tubular necrosis; N18.6 End stage renal disease; I13.2 Hypertensive heart and chronic kidney disease with heart failure and with stage 5 chronic kidney disease, or end stage renal disease; J44.1 Chronic obstructive pulmonary disease with (acute) exacerbation; Z68.41 Body mass index [BMI] 40.0-44.9, adult; I25.10 Atherosclerotic heart disease of native coronary artery without angina pectoris; E11.22 Type 2 diabetes mellitus with diabetic chronic kidney disease; E11.51 Type 2 diabetes mellitus with diabetic peripheral angiopathy without gangrene; E66.01 Morbid (severe) obesity due to excess calories; E78.5 Hyperlipidemia, unspecified; F17.210 Nicotine dependence, cigarettes, uncomplicated; F32.9 Major depressive disorder, single episode, unspecified; F41.0 Panic disorder [episodic paroxysmal anxiety]; G47.33 Obstructive sleep apnea (adult) (pediatric); G89.29 Other chronic pain; M19.90 Unspecified osteoarthritis, unspecified site; N25.0 Renal osteodystrophy; Z79.02 Long term (current) use of antithrombotics/antiplatelets; Z79.4 Long term (current) use of insulin; Z79.82 Long term (current) use of aspirin; Z79.899 Other long term (current) drug therapy; Z82.49 Family history of ischemic heart disease and other diseases of the circulatory system; Z89.512 Acquired absence of left leg below knee; Z98.42 Cataract extraction status, left eye; Z98.41 Cataract extraction status, right eye; Z96.1 Presence of intraocular lens; Z99.2 Dependence on renal dialysis
CPT/HCPCS: 80048; 85347; 90935; 94640; 94760; C1874

== ENCOUNTER → 2019-08-02 | Outpatient (CLI) | payer MEDICARE, OTHER ==
--- NOTE | 2019-08-03 10:51 | ECHOF ---
Referral Reason:G47.30 Sleep apnea, unspecified MEASUREMENTS -------- HEIGHT: 180.3 cm WEIGHT: 122.5 kg BP: RVIDd: 3.5 cm (< 3.3) IVSd: 1.8 cm (0.6 - 1.1) LVIDd: 4.6 cm (3.9 - 5.3) LVPWd: 1.9 cm (0.6 - 1.1) IVSs: 2.4 cm LVIDs: 1.9 cm LVPWs: 2.3 cm Ao Diam: 2.6 cm (2.0 - 3.7) AV Cusp: 2.1 cm (1.5 - 2.6) LA Diam: 3.7 cm (2.7 - 3.8) MV EXCURSION: 14.425 mm (> 18.000) MV EF SLOPE: 41 mm/s (70 - 150) EPSS: 1.9 cm MV E Tonny: 1.30 m/s MV DecT: 191 ms MV A Tonny: 0.55 m/s MV E/A Ratio: 2.38 RAP: 5.00 mmHg RVSP: 19.13 mmHg FINDINGS -------- Sinus rhythm. This was a technically adequate study. The left ventricular size is normal. There is moderate concentric left ventricular hypertrophy. O verall left ventricular systolic function is low-normal with, an EF between 50 - 55 %. The right ventricle is mild to moderately enlarged. The left atrial size is normal. The right atrial size is normal. The aortic valve is trileaflet and appears structurally normal. The mitral valve is normal. The mitral valve leaflets are mildly thickened. There is trace mitral regurgitation. The tricuspid valve appears structurally normal. Trace tricuspid regurgitation present. Right millicent tricular systolic pressure is normal at < 35 mmHg. There is no pulmonic regurgitation present. The aortic root size is normal. Normal inferior vena cava with normal inspiratory collapse consistent with estimated right atrial pre ssure of 5 mmHg. There is no pericardial effusion. CONCLUSIONS -------- 1. Sinus rhythm. 2. This was a technically adequate study. 3. The left ventricular size is normal. 4. There is moderate concentric left ventricular hypertrophy. 5. Overall left ventricular systolic function is low-normal with, an EF between 50 - 55 %. 6. The right ventricle is mild to moderately enlarged. 7. The left atrial size is normal. 8. The right atrial size is normal. 9. The aortic valve is trileaflet and appears structurally normal. 10. The mitral valve is normal. 11. The mitral valve leaflets are mildly thickened. 12. There is trace mitral regurgitation. 13. The tricuspid valve appears structurally normal. 14. Trace tricuspid regurgitation present. 15. Right ventricular systolic pressure is normal at < 35 mmHg. 16. There is no pulmonic regurgitation present. 17. The aortic root size is normal. 18. Normal inferior vena cava with normal inspiratory collapse consistent with estimated right atrial pressure of 5 mmHg. 19. There is no pericardial effusion. CLAY ARTIST: Naomy Snell RDCS
== END | disposition home or self-care (01) ==
LOC: RADECHMAIN 15:44
PROVIDERS: ATTEND Internal Medicine Critical Care Medicine
DX: I51.7 Cardiomegaly (principal); G47.30 Sleep apnea, unspecified
CPT/HCPCS: 93306

== ENCOUNTER 2022-03-15 08:02 | Day surgery (SDC) | payer MEDICARE ==
[2022-03-11 15:31] VITALS: BMI 42.3
[~2022-03-15 08:02] MED LIST changes: +ACETAMINOPHEN TAB 500 MG TAB PO PRN; +HEPARIN SODIUM,PORCINE/PF 5,000 UNIT/0.5 ML SYRINGE SQ PRN; +HYDROmorphone 0.5 MG/0.5 ML SYRINGE IVP PRN; -LIDOCAINE 1% 20 ML VIAL (10MG/ML) FOR IV START INTRADERMA PRN
--- NOTE | 2022-03-15 08:11 | P.GSHP ---
History of Present Illness H&P Date: 03/15/22 Chief Complaint: Renal failure 56-year-old male seen earlier this year in the office to discuss peritoneal dialysis catheter. Patient is currently on dialysis and was using a right IJ PermCath. Patient would like to proceed with peritoneal dialysis at this time. He has a history of previous hernia repairs. No known hernias at this time. Past Medical History Past Medical History: Heart Failure, COPD, Diabetes Mellitus, Dialysis, Eye Disorder, Hyperlipidemia, Hypertension, Myocardial Infarction (MD), Renal Disease, Sleep Apnea/CPAP/BIPAP, Vascular Disorder Additional Past Medical History / Comment(s): Poor circulation in hands and legs/feet. lt foot bka, has prosthesis, past shingles 1997(face), , hx glaucoma, hemodialysis TTHSA, uses oxygen 2L NC PRN. no cpap used, neuropathy Last Myocardial Infarction Date:: 2014 History of Any Multi-Drug Resistant Organisms: MRSA Date of last positivie culture/infection: approx 2015 MDRO Source:: right foot Past Surgical History: Heart Catheterization With Stent, Hernia Repair, Tonsillectomy Additional Past Surgical History / Comment(s): Right foot 3rd and 4th AND 5TH toes and area of foot amputated, cyst on scrotum removed. partial amp lt foot but had non healing wound which resulted in lt bka. matilde cataracts removed-has lens implants. x3 rt inguinal hernia sx and an umb hernia repair. one cardiac stent, chest fistual for dialysis Past Anesthesia/Blood Transfusion Reactions: No Reported Reaction Additional Past Anesthesia/Blood Transfusion Reaction / Comment(s): States he was in the ICU after his surgery on his toes, but does not know why(spouse not sure of this) Date of Last Stent Placement:: 2019 Smoking Status: Current every day smoker - Past Family History Father History Unknown: Yes Mother History Unknown: Yes Family Medical History: Cancer, Coronary Artery Disease (CAD) Additional Family Medical History / Comment(s): benign Brain tumor, Berhane syndrome Sister(s) Family Medical History: No Reported History Medications and Allergies Home Medications Medication Instructions Recorded Confirmed Type Tamsulosin [Flomax] 0.4 mg PO DAILY 04/14/18 03/11/22 History FLUoxetine HCL [PROzac] 20 mg PO QAM 12/26/18 03/11/22 History Albuterol Inhaler [Ventolin Hfa 1 - 2 puff INHALATION RT-Q6H PRN 03/09/19 03/11/22 History Inhaler] Albuterol Nebulized [Ventolin 2.5 mg INHALATION Q4H PRN 03/09/19 03/11/22 History Nebulized] Aspirin [Adult Low Dose Aspirin EC] 81 mg PO HS 03/09/19 03/11/22 History allopurinoL [Zyloprim] 100 mg PO DAILY 03/09/19 03/11/22 History calcitrioL [Calcitriol] 0.5 mcg PO DAILY 03/09/19 03/11/22 History Atorvastatin [Lipitor] 80 mg PO HS #90 tab 06/23/19 03/11/22 Rx Clopidogrel [Plavix] 75 mg PO DAILY #90 tab 06/23/19 03/11/22 Rx Nitroglycerin Sl Tabs [Nitrostat] 0.4 mg SUBLINGUAL Q5M PRN #25 tab 06/23/19 03/11/22 Rx Cinnamon Bark [Cinnamon] 1,000 mg PO DAILY 02/23/22 03/11/22 History Docusate [Colace] 200 mg PO HS 02/23/22 03/11/22 History Ergocalciferol [Vitamin D2 (1250 1,250 mcg PO EVANGELISTA 02/23/22 03/11/22 History Mcg = 22906 Iu)] Gabapentin [Neurontin] 300 mg PO HS 02/23/22 03/11/22 History Loratadine [Claritin] 10 mg PO HS 02/23/22 03/11/22 History Metoprolol Succinate (ER) [Toprol 25 mg PO DAILY 02/23/22 03/11/22 History Xl] QUEtiapine [SEROquel] 25 mg PO HS 02/23/22 03/11/22 History Sevelamer [Renvela] 800 mg PO AC-TID 02/23/22 03/11/22 History buPROPion HCL [buPROPion HCL SR] 100 mg PO DAILY 02/23/22 03/11/22 History hydrALAZINE HCL [Apresoline] 25 mg PO BID 02/23/22 03/11/22 History metOLazone [Zaroxolyn] 5 mg PO DAILY 02/23/22 03/11/22 History Fluticasone/Umeclidin/Vilanter 1 inhalation INHALATION DAILY 02/24/22 03/11/22 History [Trelegy Ellipta 100-62.5-25] FLUoxetine HCL [PROzac] 40 mg PO 2000 03/11/22 03/11/22 History Ferrous Sulfate [Iron] 325 mg PO DAILY 03/11/22 03/11/22 History Furosemide [Lasix] 60 mg PO BID 03/11/22 03/11/22 History Insulin NPL/Insulin Lispro 75 unit SQ QAM 03/11/22 03/11/22 History [humaLOG MIX 75-25 VIAL] Insulin NPL/Insulin Lispro 80 unit SQ W/LUNCH 03/11/22 03/11/22 History [humaLOG MIX 75-25 VIAL] Insulin NPL/Insulin Lispro 80 unit SQ W/SUPPER 03/11/22 03/11/22 History [humaLOG MIX 75-25 VIAL] Isosorbide Mononitrate ER [Imdur] 60 mg PO DAILY 03/11/22 03/11/22 History Magnesium Oxide 400 mg PO HS 03/11/22 03/11/22 History Pantoprazole [Protonix] 80 mg PO HS 03/11/22 03/11/22 History oxyCODONE-APAP 10-325MG [Percocet 1 tab PO Q6HR PRN 03/11/22 03/11/22 History 10-325 mg] Allergies Allergy/AdvReac Type Severity Reaction Status Date / Time codeine AdvReac headache, Verified 03/11/22 14:52 DIZZY, N/V hydrocodone [From Vicodin] AdvReac Nausea & Verified 03/11/22 14:52 Vomiting tramadol AdvReac Nausea & Verified 03/11/22 14:52 Vomiting Surgical - Exam Physical exam: General: Well-developed, well-nourished HEENT: Normocephalic, sclerae nonicteric Abdomen: Obese, nontender, nondistended Extremities: No edema Neuro: Alert and oriented Assessment and Plan (1) CKD (chronic kidney disease) Narrative/Plan: 56-year-old male with renal failure. We'll proceed with peritoneal dialysis catheter insertion at this time. Risks of bleeding, infection, catheter malfunction, peritonitis, fluid leak, hernia, bladder and bowel injury reviewed. He understands and wishes to proceed. Current Visit: No Status: Acute Code(s): N18.9 - CHRONIC KIDNEY DISEASE, UNSPECIFIED SNOMED Code(s): 414369247
[2022-03-15 08:46] LABS: Glucose,Whole Blood 442 mg/dL (70-110)
[2022-03-15 08:50] LABS: Glucose,Whole Blood 376 mg/dL (70-110)
[2022-03-15 09:00] LABS: Basophils % (A) 1 %; Eosinophils # (A) 0.1 k/uL (0-0.7); Eosinophils % (A) 2 %; HCT 35.6 % (39.0-53.0); HGB 11.4 gm/dL (13.0-17.5); Lymphocytes # (A) 1.8 k/uL (1.0-4.8); Lymphocytes % (A) 29 %; MCH 29.7 pg (25.0-35.0); MCV 92.6 fL (80.0-100.0); Mean Platelet Volume 8.9; Monocytes # (A) 0.4 k/uL (0-1.0); Monocytes % (A) 7 %; Neutrophils # (A) 3.6 k/uL (1.3-7.7); Neutrophils % (A) 60 %; Platelet Count 237 k/uL (150-450); RBC 3.85 m/uL (4.30-5.90); RDW 14.5 % (11.5-15.5)
[2022-03-15] MEDS ORDERED: SODIUM CHLORIDE 0.9% 500 ML IV ONE ×2 (09:04)
[2022-03-15 09:09] LABS: Prothrombin Time 10.9 sec (9.0-12.0)
[2022-03-15] MEDS ORDERED: ONDANSETRON 4 MG/2 ML VIAL ONE (09:12)
[2022-03-15 09:19] LABS: Calcium 8.9 mg/dL (8.4-10.2); Total Bilirubin 0.3 mg/dL (0.2-1.3); Total Protein 6.7 g/dL (6.3-8.2)
[2022-03-15] MEDS ORDERED: ONDANSETRON 4 MG/2 ML VIAL IVP ONE (09:27)
[2022-03-15 09:29] LABS: Potassium 4.5 mmol/L (3.5-5.1)
[2022-03-15] MEDS ORDERED: INSULIN REGULAR 100 UNIT/ML VIAL (IV) IV ONE (09:30)
[2022-03-15] MEDS ORDERED: MIDAZOLAM 2 MG/2 ML VIAL ONE (09:45)
[2022-03-15] MEDS ORDERED: fentaNYL (PF) 50 MCG/ML 2 ML AMP ONE (09:45)
[2022-03-15] MEDS ORDERED: PROPOFOL 10 MG/ML 20 ML VIAL IV ONE (09:45)
[2022-03-15] MEDS ORDERED: KETAMINE 10 MG/ML 20 ML VIAL ONE (09:45)
[2022-03-15] MEDS ORDERED: BUPIVACAIN-EPI 0.25%-1:200,000 30 ML VIAL SQ ONE ×2 (09:48→10:10)
[2022-03-15] MEDS ORDERED: MINERAL OIL 1 APPLIC/ML OIL TOPICAL ONE ×2 (09:48→10:10)
[2022-03-15 10:05] LABS: Glucose,Whole Blood 327 mg/dL (70-110)
[2022-03-15] MEDS ORDERED: NALOXONE 0.4 MG/ML 1 ML VIAL IV PRN (10:47)
--- NOTE | 2022-03-15 10:48 | P.OP ---
Date of Procedure: 03/15/22 Procedure(s) Performed: PREOPERATIVE DIAGNOSIS: Renal failure POSTOPERATIVE DIAGNOSIS: Same PROCEDURE: Peritoneal dialysis catheter insertion SURGEON: Fany EBL: Minimal ANESTHESIA: Sedation plus local COMPLICATIONS: None OPERATIVE PROCEDURE: The patient was placed in the operative table in the supine position. The abdomen was prepped and draped in usual sterile fashion. A small vertical incision was made in the left periumbilical location. Dissection down through the subcutaneous tissues took place using electrocautery. The anterior rectus was divided vertically using the scalpel. The rectus was bluntly. The posterior rectus was visualized. An 0 Vicryl pursestring was placed. A small opening in the posterior rectus fascia and peritoneum took place using a Metzenbaum scissors. There were no adhesions to the suture that was placed. The pigtail catheter was advanced into the pelvis over a stylette. No resistance was met. The inner cuff was secured to the fascia using the 0 Vicryl pursestring that was placed. The catheter was tunneled to an exit site in the left lateral lower quadrant. The catheter was connected to the 1 L bag of saline and approximated 800 mL of saline was easily introduced into the peritoneal cavity. The fluid was then allowed to evacuate. The majority of the fluid was returned. The anterior rectus fascia was then reapproximated using a running 0 Vicryl stitch. The subcutaneous tissues reprepped using 3-0 Vicryl sutures and the skin using 4-0 Monocryl sutures. The outpatient dialysis adapter was applied to the end of the catheter. Sterile dressings were then applied after skin glue was placed over the incision. DISPOSITION: Stable to recovery room
[2022-03-15 10:53] LABS: Glucose,Whole Blood 330 mg/dL (70-110)
[2022-03-15 10:57] VITALS: RESP 16; TEMP 97.6
[2022-03-15] MEDS ORDERED: INSULIN REGULAR 100 UNIT/ML VIAL (IV) SQ ONE (11:01)
[2022-03-15 12:07] VITALS: BP 134/77; PULSE 65
[2022-03-15 12:07] LABS: Glucose,Whole Blood 325 mg/dL (70-110)
== END 2022-03-15 12:30 | disposition home or self-care (01) ==
LOC: OR 08:02
PROVIDERS: ATTEND Surgery
DX: E11.22 Type 2 diabetes mellitus with diabetic chronic kidney disease (principal); I13.2 Hypertensive heart and chronic kidney disease with heart failure and with stage 5 chronic kidney disease, or end stage renal disease; I50.9 Heart failure, unspecified; N18.6 End stage renal disease; E66.9 Obesity, unspecified; J44.9 Chronic obstructive pulmonary disease, unspecified; E11.40 Type 2 diabetes mellitus with diabetic neuropathy, unspecified; H57.9 Unspecified disorder of eye and adnexa; E78.5 Hyperlipidemia, unspecified; F17.200 Nicotine dependence, unspecified, uncomplicated; I73.9 Peripheral vascular disease, unspecified; I25.2 Old myocardial infarction; G47.33 Obstructive sleep apnea (adult) (pediatric); Z95.5 Presence of coronary angioplasty implant and graft; Z98.890 Other specified postprocedural states; Z90.89 Acquired absence of other organs; Z98.41 Cataract extraction status, right eye; Z98.42 Cataract extraction status, left eye; Z86.69 Personal history of other diseases of the nervous system and sense organs; Z99.2 Dependence on renal dialysis; Z89.512 Acquired absence of left leg below knee; Z82.49 Family history of ischemic heart disease and other diseases of the circulatory system; Z86.011 Personal history of benign neoplasm of the brain; Z82.0 Family history of epilepsy and other diseases of the nervous system; Z68.35 Body mass index [BMI] 35.0-35.9, adult; Z99.89 Dependence on other enabling machines and devices; Z91.041 Radiographic dye allergy status; Z88.5 Allergy status to narcotic agent
CPT/HCPCS: 49421; 80053; 85025; 85610; C1752; J2250; J0690; J2405; J3010; J2704; J1644

== ENCOUNTER 2022-08-07 11:04 | Emergency (ER) | payer OTHER, MEDICARE ==
[2022-08-07 11:15] VITALS: BP 129/78; PULSE 81; RESP 18; TEMP 98
[2022-08-07] MEDS ORDERED: oxyCODONE-APAP 10-325MG 1 EACH TAB PO PRN (11:35)
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
[2022-08-07 12:19] LABS: Basophils % (A) 0 %; Eosinophils # (A) 0.2 k/uL (0-0.7); Eosinophils % (A) 2 %; HCT 33.9 % (39.0-53.0); HGB 11.7 gm/dL (13.0-17.5); Lymphocytes # (A) 1.8 k/uL (1.0-4.8); Lymphocytes % (A) 26 %; MCH 30.2 pg (25.0-35.0); MCHC 34.5 g/dL (31.0-37.0); MCV 87.3 fL (80.0-100.0); Mean Platelet Volume 9.3; Monocytes # (A) 0.4 k/uL (0-1.0); Monocytes % (A) 5 %; Neutrophils # (A) 4.4 k/uL (1.3-7.7); Neutrophils % (A) 65 %; Platelet Count 217 k/uL (150-450); RBC 3.88 m/uL (4.30-5.90); RDW 13.9 % (11.5-15.5); WBC 6.8 k/uL (3.8-10.6)
[2022-08-07 12:20] LABS: Prothrombin Time 10.7 sec (9.0-12.0)
[2022-08-07 12:21] LABS: Albumin 3.9 g/dL (3.5-5.0); Calcium 8.8 mg/dL (8.4-10.2); Potassium 3.8 mmol/L (3.5-5.1); Total Bilirubin 0.3 mg/dL (0.2-1.3); Total Protein 7.2 g/dL (6.3-8.2)
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
== END 2022-08-07 13:40 | disposition home or self-care (01) ==
LOC: EC 11:04
DX: R53.1 Weakness (principal); I25.10 Atherosclerotic heart disease of native coronary artery without angina pectoris; J44.9 Chronic obstructive pulmonary disease, unspecified; E11.22 Type 2 diabetes mellitus with diabetic chronic kidney disease; I13.2 Hypertensive heart and chronic kidney disease with heart failure and with stage 5 chronic kidney disease, or end stage renal disease; I50.9 Heart failure, unspecified; N18.6 End stage renal disease; K21.9 Gastro-esophageal reflux disease without esophagitis; I25.2 Old myocardial infarction; F41.9 Anxiety disorder, unspecified; F32.A Depression, unspecified; F17.200 Nicotine dependence, unspecified, uncomplicated; F12.90 Cannabis use, unspecified, uncomplicated; Z88.5 Allergy status to narcotic agent; Z88.6 Allergy status to analgesic agent; Z79.4 Long term (current) use of insulin; Z79.82 Long term (current) use of aspirin; Z79.899 Other long term (current) drug therapy; V89.2XXA Person injured in unspecified motor-vehicle accident, traffic, initial encounter
CPT/HCPCS: 36415; 70450; 70486; 72125; 72128; 80053; 85025; 85610; 99285

== ENCOUNTER → 2023-06-30 | Outpatient (CLI) | payer MEDICARE ==
--- NOTE | 2023-06-30 16:11 | CTL ---
EXAMINATION TYPE: CT Low Dose Lung DATE OF EXAM ORDERED: 06/30/2023 HISTORY:. Lung cancer screening CT DLP: 102.[address] CTDI: 2.6 mGy Automated exposure control for dose reduction was used. COMPARISON: None TECHNIQUE: Low dose computed tomography scan was performed through the chest at 1 mm thick sections a nd reconstructed images in multiple planes at 1 mm and [address] DIAGNOSTIC QUALITY: Satisfactory FINDINGS: The lungs are clear of consolidative/airspace opacity or abnormal interstitial opacity. There is mild pleural-parenchymal scarring in the lingula. There is no suspicious lung masses or nodules. The great vessels the chest are normal is no mediastinal, hilar or axillary adenopathy. There is no p leural effusion or pneumothorax. Limited scanning the upper abdomen reveals no gross abnormality although the evaluation is markedly l imited secondary to technique. IMPRESSION: 1. Lung RADS category 1 negative. Continue routine screening at yearly intervals. 2. No acute cardiopulmonary disease.
== END | disposition home or self-care (01) ==
LOC: RADCTMAIN 14:47
PROVIDERS: ATTEND Internal Medicine Critical Care Medicine
DX: Z12.2 Encounter for screening for malignant neoplasm of respiratory organs (principal); F17.210 Nicotine dependence, cigarettes, uncomplicated
CPT/HCPCS: 71271

== ENCOUNTER 2023-09-10 20:58 | Observation (INO) | payer MEDICARE ==
--- NOTE | 2023-09-10 21:29 | ED ---
General Adult HPI - General Chief complaint: Shortness of Breath Stated complaint: SOB abd port pain Time Seen by Provider: 09/10/23 21:11 Source: patient, RN notes reviewed, old records reviewed Mode of arrival: wheelchair Limitations: no limitations - History of Present Illness Initial comments: 57-year-old male presenting for evaluation of increased difficulty breathing. Patient has history of end-stage renal disease on peritoneal dialysis. Patient has not been able to do peritoneal dialysis for the past 4 days because he does not have the proper equipment as he is currently in between houses. Patient denies cough. He states he has had some fever. No central chest pain. - Related Data Home Medications Medication Instructions Recorded Confirmed Tamsulosin [Flomax] 0.4 mg PO DAILY 04/14/18 03/11/22 FLUoxetine HCL [PROzac] 20 mg PO QA 12/26/18 03/11/22 Albuterol Inhaler [Ventolin Hfa 1 - 2 puff INHALATION RT-Q6H PRN 03/09/19 03/11/22 Inhaler] Albuterol Nebulized [Ventolin 2.5 mg INHALATION Q4H PRN 03/09/19 03/11/22 Nebulized] Aspirin [Adult Low Dose Aspirin EC] 81 mg PO HS 03/09/19 03/11/22 allopurinoL [Zyloprim] 100 mg PO DAILY 03/09/19 03/11/22 calcitrioL 0.5 mcg PO DAILY 03/09/19 03/11/22 Cinnamon Bark [Cinnamon] 1,000 mg PO DAILY 02/23/22 03/11/22 Docusate [Colace] 200 mg PO HS 02/23/22 03/11/22 Ergocalciferol [Vitamin D2 (1250 1,250 mcg PO EVANGELISTA 02/23/22 03/11/22 Mcg = 58958 Iu)] Gabapentin [Neurontin] 300 mg PO HS 02/23/22 03/11/22 Loratadine [Claritin] 10 mg PO HS 02/23/22 03/11/22 Metoprolol Succinate (ER) [Toprol 25 mg PO DAILY 02/23/22 03/11/22 Xl] QUEtiapine [SEROquel] 25 mg PO HS 02/23/22 03/11/22 Sevelamer [Renvela] 800 mg PO AC-TID 02/23/22 03/11/22 buPROPion HCL [buPROPion HCL SR] 100 mg PO DAILY 02/23/22 03/11/22 hydrALAZINE HCL [Apresoline] 25 mg PO BID 02/23/22 03/11/22 metOLazone [Zaroxolyn] 5 mg PO DAILY 02/23/22 03/11/22 Fluticasone/Umeclidin/Vilanter 1 inhalation INHALATION DAILY 02/24/22 03/11/22 [Trelegy Ellipta 100-62.5-25] FLUoxetine HCL [PROzac] 40 mg PO 2000 03/11/22 03/11/22 Ferrous Sulfate [Iron] 325 mg PO DAILY 03/11/22 03/11/22 Furosemide [Lasix] 60 mg PO BID 03/11/22 03/11/22 Insulin NPL/Insulin Lispro 75 unit SQ QAM 03/11/22 03/11/22 [humaLOG MIX 75-25 VIAL] Insulin NPL/Insulin Lispro 80 unit SQ W/LUNCH 03/11/22 03/11/22 [humaLOG MIX 75-25 VIAL] Insulin NPL/Insulin Lispro 80 unit SQ W/SUPPER 03/11/22 03/11/22 [humaLOG MIX 75-25 VIAL] Isosorbide Mononitrate ER [Imdur] 60 mg PO DAILY 03/11/22 03/11/22 Magnesium Oxide 400 mg PO HS 03/11/22 03/11/22 Pantoprazole [Protonix] 80 mg PO HS 03/11/22 03/11/22 oxyCODONE-APAP 10-325MG [Percocet 1 tab PO Q6HR PRN 03/11/22 03/11/22 10-325 mg] Previous Rx's Medication Instructions Recorded Atorvastatin [Lipitor] 80 mg PO HS #90 tab 06/23/19 Clopidogrel [Plavix] 75 mg PO DAILY #90 tab 06/23/19 Nitroglycerin Sl Tabs [Nitrostat] 0.4 mg SUBLINGUAL Q5M PRN #25 tab 06/23/19 Allergies Allergy/AdvReac Type Severity Reaction Status Date / Time codeine AdvReac headache, Verified 09/10/23 21:07 DIZZY, N/V hydrocodone [From Vicodin] AdvReac Nausea & Verified 09/10/23 21:07 Vomiting tramadol AdvReac Nausea & Verified 09/10/23 21:07 Vomiting Review of Systems ROS Statement: Those systems with pertinent positive or pertinent negative responses have been documented in the HPI. ROS Other: All systems not noted in ROS Statement are negative. Past Medical History Past Medical History: Coronary Artery Disease (CAD), Heart Failure, COPD, Diabetes Mellitus, Eye Disorder, GERD/Reflux, Hyperlipidemia, Hypertension, Myocardial Infarction ([place]), Renal Disease, Respiratory Disorder, Sleep Apnea/CPAP/BIPAP, Vascular Disorder Additional Past Medical History / Comment(s): Poor circulation in hands and legs/feet. 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 partial amp lt foot but had non healing wound which resulted in lt bka. matilde cataracts removed-has lens implants. x3 rt inguinal hernia sx and an umb hernia repair. BELOW KNEE AMPUTATION , COLONOSCOPY Past Anesthesia/Blood Transfusion Reactions: No Reported Reaction Additional Past Anesthesia/Blood Transfusion Reaction / Comment(s): States he was in the ICU after his surgery on his toes, but does not know why. Date of Last Stent Placement:: 05/2015 APPROX Past Psychological History: Anxiety, Depression, Panic Disorder Smoking Status: Current every day smoker Past Alcohol Use History: None Reported Past Drug Use History: Marijuana - Past Family History Father History Unknown: Yes Mother History Unknown: Yes Family Medical History: Cancer, Coronary Artery Disease (CAD) Additional Family Medical History / Comment(s): benign Brain tumor, [place] syndrome Sister(s) Family Medical History: No Reported History General Exam Limitations: no limitations General appearance: alert Head exam: Present: atraumatic, normocephalic Eye exam: Present: normal appearance, PERRL ENT exam: Present: normal exam Neck exam: Present: normal inspection. Absent: tenderness, meningismus Respiratory exam: Present: respiratory distress, rales, decreased breath sounds Cardiovascular Exam: Present: regular rate, normal rhythm GI/Abdominal exam: Present: soft, distended. Absent: tenderness, guarding Extremities exam: Present: pedal edema Neurological exam: Present: alert, oriented X3, CN II-XII intact. Absent: motor sensory deficit Psychiatric exam: Present: normal affect, normal mood Skin exam: Present: warm, dry, intact. Absent: cyanosis, diaphoretic Course Vital Signs 09/10/23 09/10/23 09/10/23 21:05 21:19 21:35 Temperature 98.9 F Pulse Rate 83 79 Respiratory 16 24 Rate Blood Pressure 184/113 O2 Sat by Pulse 93 L Oximetry 09/10/23 09/10/23 22:02 22:21 Temperature Pulse Rate 87 87 Respiratory 15 Rate Blood Pressure 144/101 O2 Sat by Pulse 95 Oximetry Medical Decision Making - Medical Decision Making Was pt. sent in by a medical professional or institution ([facility], PROGRAM ASSOCIATE, urgent care, hospital, or senior care...) When possible be specific @ -No Did you speak to anyone other than the patient for history (EMS, parent, family, police, friend...)? What history was obtained from this source @ -No Did you review nursing and triage notes (agree or disagree)? Why? @ -I reviewed and agree with nursing and triage notes Were old charts reviewed (outside hosp., previous admission, EMS record, old EKG, old radiological studies, urgent care reports/EKG's, senior care records)? Report findings @ -No old charts were reviewed Differential Diagnosis (chest pain, altered mental status, abdominal pain women, abdominal pain men, vaginal bleeding, weakness, fever, dyspnea, syncope, headache, dizziness, GI bleed, back pain, seizure, CVA, palpatations, mental health, musculoskeletal)? @ -Differential Dyspnea: Coronary syndrome, arrhythmia, tamponade, asthma, COPD, pulmonary embolism, pneumonia, pneumothorax, pulmonary effusion, anaphylaxis, diabetic ketoacidosis, flailed chest, pulmonary contusion, diaphragmatic rupture, anemia, neuromuscular, this is not meant to be an all-inclusive list. EKG interpreted by me (3pts min.). @ -Sinus rhythm, rate of 79, SC interval 139, QRS duration 110, QTc [address] segment elevation. X-rays interpreted by me (1pt min.). @ -[Chest x-ray showing pulmonary edema consistent with fluid overload. CT interpreted by me (1pt min.). @ -None done U/S interpreted by me (1pt. min.). @ -None done What testing was considered but not performed or refused? (CT, X-rays, U/S, labs)? Why? @ -None What meds were considered but not given or refused? Why? @ -None Did you discuss the management of the patient with other professionals (professionals i.e. DrGayle, PA, PROGRAM ASSOCIATE, lab, RT, psych nurse, social worker masters, manufacturing director, teacher, zoology technical officer, family service caseworker)? Give summary @ -No Was smoking cessation discussed for >3mins.? @ -No Was critical care preformed (if so, how long)? @ -No Were there social determinants of health that impacted care today? How? (Homelessness, low income, unemployed, alcoholism, drug addiction, transport ation, low edu. Level, literacy, decrease access to med. care, usp, rehab)? @ -No Was there de-escalation of care discussed even if they declined (Discuss DNR or withdrawal of care, Hospice)? DNR status @ -No What co-morbidities impacted this encounter? (DM, HTN, Smoking, COPD, CAD, Cancer, CVA, ARF, Chemo, Hep., AIDS, mental health diagnosis, sleep apnea, morbid obesity)? @ -[End-stage renal disease. Was patient admitted / discharged? Hospital course, mention meds given and route, prescriptions, significant lab abnormalities, going to OR and other pertinent info. @ -57-year-old male presenting with increased dyspnea, has not completed peritoneal dialysis in the past 4 days. Chest x-ray does show pulmonary edema. Electrolytes are within normal limits. Patient is requiring 4 L of evangelista pplemental oxygen. BNP is elevated. I did discuss case with nephrology, Dr. Melendez, who is able to provide peritoneal dialysis orders. The patient will be dialyzed throughout the night and reevaluated in the morning. Admitted to Dr. Paz who is aware. Undiagnosed new problem with uncertain prognosis? @ -No Drug Therapy requiring intensive monitoring for toxicity (Heparin, Nitro, Insulin, Cardizem)? @ -No Were any procedures done? @ -No Diagnosis/symptom? @ -Fluid overload, end-stage renal disease Acute, or Chronic, or Acute on Chronic? @ -[Acute on chronic Uncomplicated (without systemic symptoms) or Complicated (systemic symptoms)? @ -Default Side effects of treatment? @ -No Exacerbation, Progression, or Severe Exacerbation? @ -No Poses a threat to life or bodily function? How? (Chest pain, [place], [place], pneumonia, PE, COPD, DKA, ARF, appy, cholecystitis, CVA, Diverticulitis, Homicidal, Suicidal, threat to staff... and all critical care pts) @ -Yes, fluid overload, electrolyte abnormality, hypoxia - Lab Data Result diagrams: 09/10/23 21:17 09/10/23 21:17 Lab Results 09/10/23 09/10/23 09/10/23 Range/Units 21:17 21:17 21:17 WBC 9.2 (3.8-10.6) k/uL RBC 3.98 L (4.30-5.90) m/uL Hgb 12.0 L (13.0-17.5) gm/dL Hct 35.6 L (39.0-53.0) % MCV 89.4 (80.0-100.0) fL MCH 30.0 (25.0-35.0) pg MCHC 33.6 (31.0-37.0) g/dL RDW 13.6 (11.5-15.5) % Plt Count 203 (150-450) k/uL MPV 10.2 Neutrophils % 74 % Lymphocytes % 17 % Monocytes % 6 % Eosinophils % 1 % Basophils % 0 % Neutrophils # 6.8 (1.3-7.7) k/uL Lymphocytes # 1.5 (1.0-4.8) k/uL Monocytes # 0.5 (0-1.0) k/uL Eosinophils # 0.1 (0-0.7) k/uL Basophils # 0.0 (0-0.2) k/uL PT 10.8 (10.0-12.5) sec INR 1.0 (<1.2) APTT 25.7 (22.0-30.0) sec Sodium 141 (137-145) mmol/L Potassium 5.1 (3.5-5.1) mmol/L Chloride 114 H (98-107) mmol/L Carbon Dioxide 22 (22-30) mmol/L Anion Gap 5 mmol/L BUN 54 H (9-20) mg/dL Creatinine 2.54 H (0.66-1.25) mg/dL Est GFR (CKD-EPI)AfAm 31 (>60 ml/min/1.73 sqM) Est GFR (CKD-EPI)NonAf 27 (>60 ml/min/1.73 sqM) Glucose 158 H (74-99) mg/dL Calcium 8.9 (8.4-10.2) mg/dL Total Bilirubin 0.6 (0.2-1.3) mg/dL AST 22 (17-59) U/L ALT 28 (4-49) U/L Alkaline Phosphatase 176 H (38-126) U/L NT-Pro-B Natriuret Pep 5340 pg/mL Total Protein 6.4 (6.3-8.2) g/dL Albumin 3.5 (3.5-5.0) g/dL Influenza Type A (PCR) (Not Detectd) Influenza Type B (PCR) (Not Detectd) RSV (PCR) (Not Detectd) SARS-CoV-2 (PCR) (Not Detectd) 09/10/23 Range/Units 21:33 WBC (3.8-10.6) k/uL RBC (4.30-5.90) m/uL Hgb (13.0-17.5) gm/dL Hct (39.0-53.0) % MCV (80.0-100.0) fL MCH (25.0-35.0) pg MCHC (31.0-37.0) g/dL RDW (11.5-15.5) % Plt Count (150-450) k/uL MPV Neutrophils % % Lymphocytes % % Monocytes % % Eosinophils % % Basophils % % Neutrophils # (1.3-7.7) k/uL Lymphocytes # (1.0-4.8) k/uL Monocytes # (0-1.0) k/uL Eosinophils # (0-0.7) k/uL Basophils # (0-0.2) k/uL PT (10.0-12.5) sec INR (<1.2) APTT (22.0-30.0) sec Sodium (137-145) mmol/L Potassium (3.5-5.1) mmol/L Chloride (98-107) mmol/L Carbon Dioxide (22-30) mmol/L Anion Gap mmol/L BUN (9-20) mg/dL Creatinine (0.66-1.25) mg/dL Est GFR (CKD-EPI)AfAm (>60 ml/min/1.73 sqM) Est GFR (CKD-EPI)NonAf (>60 ml/min/1.73 sqM) Glucose (74-99) mg/dL Calcium (8.4-10.2) mg/dL Total Bilirubin (0.2-1.3) mg/dL AST (17-59) U/L ALT (4-49) U/L Alkaline Phosphatase (38-126) U/L NT-Pro-B Natriuret Pep pg/mL Total Protein (6.3-8.2) g/dL Albumin (3.5-5.0) g/dL Influenza Type A (PCR) Not Detected (Not Detectd) Influenza Type B (PCR) Not Detected (Not Detectd) RSV (PCR) Not Detected (Not Detectd) SARS-CoV-2 (PCR) Not Detected (Not Detectd) Disposition Clinical Impression: ESRD (end stage renal disease), Fluid overload, Hypoxia Disposition: ADMITTED IP TO THIS HOSP Condition: Stable Is patient prescribed a controlled substance at d/c from ED?: No Referrals: López Harris DO [Primary Care Provider] - 1-2 days Time of Disposition: 22:38
[2023-09-10] MEDS: IPRATROPIUM 0.5 MG/2.5 ML NEBU INHALATION STA (21:34)
[2023-09-10] MEDS: ALBUTEROL NEBULIZED 2.5 MG/3 ML INHALATION STA (21:34)
[2023-09-10 21:41] LABS: ALT 28 U/L (4-49); AST 22 U/L (17-59); African American GFR (CKD) 31 (>60 ml/min/1.73 sqM); Albumin 3.5 g/dL (3.5-5.0); Alkaline Phosphatase 176 U/L (38-126); Anion Gap 5 mmol/L; Blood Urea Nitrogen 54 mg/dL (9-20); Calcium 8.9 mg/dL (8.4-10.2); Carbon Dioxide 22 mmol/L (22-30); Chloride 114 mmol/L (98-107); Glucose 158 mg/dL (74-99); Non-African American GFR(CKD) 27 (>60 ml/min/1.73 sqM); Potassium 5.1 mmol/L (3.5-5.1); Sodium 141 mmol/L (137-145); Total Bilirubin 0.6 mg/dL (0.2-1.3); Total Protein 6.4 g/dL (6.3-8.2)
[2023-09-10 21:47] LABS: Partial Thromboplastin Time 25.7 sec (22.0-30.0); Prothrombin Time 10.8 sec (10.0-12.5)
[2023-09-10 21:50] LABS: NT-Pro-B-Type Natriuretic Pept 5340 pg/mL
[2023-09-10 22:18] LABS: Basophils % (A) 0 %; Eosinophils # (A) 0.1 k/uL (0-0.7); Eosinophils % (A) 1 %; HCT 35.6 % (39.0-53.0); Lymphocytes # (A) 1.5 k/uL (1.0-4.8); Lymphocytes % (A) 17 %; MCHC 33.6 g/dL (31.0-37.0); MCV 89.4 fL (80.0-100.0); Mean Platelet Volume 10.2; Monocytes # (A) 0.5 k/uL (0-1.0); Monocytes % (A) 6 %; Neutrophils # (A) 6.8 k/uL (1.3-7.7); Neutrophils % (A) 74 %; Platelet Count 203 k/uL (150-450); RBC 3.98 m/uL (4.30-5.90); RDW 13.6 % (11.5-15.5); WBC 9.2 k/uL (3.8-10.6)
--- NOTE | 2023-09-10 22:32 | XR ---
EXAMINATION TYPE: XR chest 2V DATE OF EXAM: 09/10/2023 10:09 PM CLINICAL INDICATION:Male, 57 years old with history of difficulty breathing; [facility] COMPARISON: Chest x-ray 10/27/2021 TECHNIQUE: XR chest 2V. Frontal and lateral views of the chest.. FINDINGS: Lines/Tubes/Devices: EKG leads overlie the chest. No indwelling lines are seen. Previous right-sided dialysis catheter is no longer identified. Heart/mediastinum: Heart size upper normal. Mediastinum appears normal. Pulmonary vascularity: Pulmonary vascular congestion is present. Increased interstitial markings comp ared to prior, likely edema superimposed on chronic changes. Lungs/Pleura: There is no evidence of focal consolidation or pneumothorax. Trace pleural effusions a re suggested. Musculoskeletal: No acute osseous abnormality demonstrated in the limits of the exam. Mild degenerat aayush changes. Other findings: None. IMPRESSION: Pulmonary vascular congestion with interstitial edema, trace pleural effusions. Correlate for fluid o verload/CHF.
[2023-09-10] MEDS ORDERED: NALOXONE 0.4 MG/ML 1 ML VIAL IV PRN (22:34)
[2023-09-11] MEDS: oxyCODONE-APAP 10-325MG 1 EACH TAB PO PRN (00:14)
[2023-09-11 00:17] LABS: Glucose,Whole Blood 155 mg/dL (70-110)
[2023-09-11] MEDS: DIALYSIS (PERIT 4.25%) 2000 ML 85 G/2,000 ML BAG INTRAPERIT SCH (00:48)
[2023-09-11 06:27] LABS: Glucose,Whole Blood 277 mg/dL (70-110)
--- NOTE | 2023-09-11 10:31 | P.NPCON ---
History of Present Illness - Reason for Consult end stage renal disease - History of Present Illness Reason for consultation: End-stage renal disease History of present illness: Patient is a 57-year-old male seen in renal consultation for end-stage renal disease. He is maintained on peritoneal dialysis. Patient is in the process of moving to a new apartment and stopped doing peritoneal dialysis 3 days ago. Patient states he felt dizzy and progressively got more short of breath and came to the hospital. Chest x-ray was suggestive of vascular congestion and fluid overload. Peritoneal dialysis exchanges with started last night with 4.25% dextrose solution and he feels better. He is currently on 4 L nasal cannula. Blood pressures have been elevated. Patient has longstanding history of diabetes. He has history of left below the knee amputation. Patient also has history of coronary artery disease and has a cardiac stent. He denies fever or chills. No vomiting or diarrhea. Denies chest pain. Denies fever or chills. Vital signs are stable. General: No acute distress. HEENT: Head exam is unremarkable. On nasal cannula. LUNGS: No audible rhonchi or wheezes. HEART: Rate and Rhythm are regular. ABDOMEN: Nontender, obese. EXTREMITITES: Left BKA noted. Chronic changes in the right lower extremity. Past Medical History Past Medical History: Coronary Artery Disease (CAD), Heart Failure, COPD, Diabetes Mellitus, Eye Disorder, GERD/Reflux, Hyperlipidemia, Hypertension, Myocardial Infarction ([place]), Renal Disease, Respiratory Disorder, Sleep Apnea/CPAP/BIPAP, Vascular Disorder Additional Past Medical History / Comment(s): Poor circulation in hands and legs/feet. 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 partial amp lt foot but had non healing wound which resulted in lt bka. matilde cataracts removed-has lens implants. x3 rt inguinal hernia sx and an umb hernia repair. BELOW KNEE AMPUTATION , COLONOSCOPY Past Anesthesia/Blood Transfusion Reactions: No Reported Reaction Additional Past Anesthesia/Blood Transfusion Reaction / Comment(s): States he was in the ICU after his surgery on his toes, but does not know why. Date of Last Stent Placement:: 05/2015 APPROX Smoking Status: Former smoker - Past Family History Father History Unknown: Yes Mother History Unknown: Yes Family Medical History: Cancer, Coronary Artery Disease (CAD) Additional Family Medical History / Comment(s): benign Brain tumor, [place] syndrome Sister(s) Family Medical History: No Reported History Medications and Allergies Home Medications Medication Instructions Recorded Confirmed Type Tamsulosin [Flomax] 0.4 mg PO DAILY 04/14/18 03/11/22 History FLUoxetine HCL [PROzac] 20 mg PO QAM 12/26/18 03/11/22 History Albuterol Inhaler [Ventolin Hfa 1 - 2 puff INHALATION RT-Q6H PRN 03/09/19 03/11/22 History Inhaler] Albuterol Nebulized [Ventolin 2.5 mg INHALATION Q4H PRN 03/09/19 03/11/22 History Nebulized] Aspirin [Adult Low Dose Aspirin EC] 81 mg PO HS 03/09/19 03/11/22 History allopurinoL [Zyloprim] 100 mg PO DAILY 03/09/19 03/11/22 History calcitrioL 0.5 mcg PO DAILY 03/09/19 03/11/22 History Atorvastatin [Lipitor] 80 mg PO HS #90 tab 06/23/19 03/11/22 Rx Clopidogrel [Plavix] 75 mg PO DAILY #90 tab 06/23/19 03/11/22 Rx Nitroglycerin Sl Tabs [Nitrostat] 0.4 mg SUBLINGUAL Q5M PRN #25 tab 06/23/19 03/11/22 Rx Cinnamon Bark [Cinnamon] 1,000 mg PO DAILY 02/23/22 03/11/22 History Docusate [Colace] 200 mg PO HS 02/23/22 03/11/22 History Ergocalciferol [Vitamin D2 (1250 1,250 mcg PO EVANGELISTA 02/23/22 03/11/22 History Mcg = 20743 Iu)] Gabapentin [Neurontin] 300 mg PO HS 02/23/22 03/11/22 History Loratadine [Claritin] 10 mg PO HS 02/23/22 03/11/22 History Metoprolol Succinate (ER) [Toprol 25 mg PO DAILY 02/23/22 03/11/22 History Xl] QUEtiapine [SEROquel] 25 mg PO HS 02/23/22 03/11/22 History Sevelamer [Renvela] 800 mg PO AC-TID 02/23/22 03/11/22 History buPROPion HCL [buPROPion HCL SR] 100 mg PO DAILY 02/23/22 03/11/22 History hydrALAZINE HCL [Apresoline] 25 mg PO BID 02/23/22 03/11/22 History metOLazone [Zaroxolyn] 5 mg PO DAILY 02/23/22 03/11/22 History Fluticasone/Umeclidin/Vilanter 1 inhalation INHALATION DAILY 02/24/22 03/11/22 History [Trelebreanne Ellipta 100-62.5-25] FLUoxetine HCL [PROzac] 40 mg PO 199903/11/22 03/11/22 History Ferrous Sulfate [Iron] 325 mg PO DAILY 03/11/22 03/11/22 History Furosemide [Lasix] 60 mg PO BID 03/11/22 03/11/22 History Insulin NPL/Insulin Lispro 75 unit SQ QAM 03/11/22 03/11/22 History [humaLOG MIX 75-25 VIAL] Insulin NPL/Insulin Lispro 80 unit SQ W/LUNCH 03/11/22 03/11/22 History [humaLOG MIX 75-25 VIAL] Insulin NPL/Insulin Lispro 80 unit SQ W/SUPPER 03/11/22 03/11/22 History [humaLOG MIX 75-25 VIAL] Isosorbide Mononitrate ER [Imdur] 60 mg PO DAILY 03/11/22 03/11/22 History Magnesium Oxide 400 mg PO HS 03/11/22 03/11/22 History Pantoprazole [Protonix] 80 mg PO HS 03/11/22 03/11/22 History oxyCODONE-APAP 10-325MG [Percocet 1 tab PO Q6HR PRN 03/11/22 03/11/22 History 10-325 mg] Allergies Allergy/AdvReac Type Severity Reaction Status Date / Time codeine AdvReac headache, Verified 09/10/23 21:07 DIZZY, N/V hydrocodone [From Vicodin] AdvReac Nausea & Verified 09/10/23 21:07 Vomiting tramadol AdvReac Nausea & Verified 09/10/23 21:07 Vomiting Physical Exam Vitals: Vital Signs Temp Pulse Pulse Resp BP BP Pulse Ox 09/11/23 09:07 97.7 F 73 16 183/81 97 09/11/23 07:02 98.2 F 88 20 192/102 97 09/11/23 03:00 97.8 F 76 16 166/92 99 09/10/23 23:26 98 14 161/82 99 09/10/23 22:21 87 15 144/101 95 09/10/23 22:02 87 09/10/23 21:35 79 09/10/23 21:19 24 09/10/23 21:05 98.9 F 83 16 184/113 93 L Intake and Output 09/10/23 09/11/23 09/11/23 21:59 06:59 14:59 Intake Total Output Total Balance Intake: Oral Output: Urine Other: Weight 121.2 kg Results - Lab Results Most recent lab results Calcium 8.9 mg/dL (8.4-10.2) 09/10/23 21:17 09/10/23 21:17 09/10/23 21:17 Assessment and Plan Plan: Assessment: 1. End-stage renal disease maintained on peritoneal dialysis. 2. Hypertension with chronic kidney disease. 3. Acute hypoxic respiratory failure secondary to volume overload. 4. Coronary disease with cardiac stent. 5. Diabetes mellitus. 6. Chronic kidney disease mineral bone disease. Plan: Patient to undergo 1 more exchanges 4.25 solution. He will then be switched over to 2 L every 6 hours with 2.5% dextrose solution. Low-salt diet and 1500 cc fluid restriction. Check phosphorus level. Add torsemide 40 mg daily. Add amlodipine 5 mg twice daily. Add hydralazine 25 mg 3 times daily. Hold for systolic blood pressure less than 120. Stressed compliance with medications and dialysis treatments outpatient. Thank you for the consultation. I will continue to follow the patient with you during his hospital stay.
[2023-09-11] MEDS ORDERED: ALBUTEROL NEBULIZED 2.5 MG/3 ML INHALATION PRN (11:12)
[2023-09-11] MEDS ORDERED: NITROGLYCERIN SL TABS 0.4 MG TAB SUBLINGUAL PRN (11:12)
[2023-09-11] MEDS ORDERED: buPROPion SR 100 MG TABLET.ER PO SCH (11:15)
[2023-09-11] MEDS ORDERED: DEXTROSE 50% SYRINGE 50 ML IVP PRN ×2 (11:16)
[2023-09-11 11:43] LABS: Glucose,Whole Blood 403 mg/dL (70-110)
[2023-09-11] MEDS: hydrALAZINE HCL 20 MG/ML 1 ML VIAL IVP PRN (11:59)
[2023-09-11] MEDS ORDERED: ERGOCALCIFEROL 1,250 MCG (50,000 IU) CAPSULE PO SCH (12:00)
[2023-09-11] MEDS: INSULN ASP PRT/INSULIN ASPART 100 UNIT/ML 10 ML VIAL SQ SCH ×2 (12:01→17:17)
[2023-09-11] MEDS: INSULIN ASPART (NovoLOG) 100 UNIT/ML VIAL SQ SCH (12:02)
[2023-09-11] MEDS: METOPROLOL SUCCINATE (ER) 25 MG TAB.ER.24H PO SCH (12:05)
[2023-09-11] MEDS: allopurinoL 100 MG TAB PO SCH (12:05)
[2023-09-11] MEDS: FLUoxetine HCL 20 MG CAP PO SCH ×2 (12:05→21:32)
[2023-09-11] MEDS: TORSEMIDE 20 MG TAB PO SCH (12:05)
[2023-09-11] MEDS: TAMSULOSIN 0.4 MG CAP.ER.24H PO SCH (12:05)
[2023-09-11] MEDS: CLOPIDOGREL 75 MG TAB PO SCH (12:05)
[2023-09-11] MEDS: ISOSORBIDE MONONITRATE ER 60 MG TAB.ER.24H PO SCH (12:05)
[2023-09-11] MEDS ORDERED: SEVELAMER 800 MG TAB PO SCH (12:30)
[2023-09-11] MEDS: metOLazone 5 MG TAB PO SCH (14:25)
[2023-09-11] MEDS: METOPROLOL SUCCINATE (ER) 25 MG TAB.ER.24H PO ONE (14:25)
--- NOTE | 2023-09-11 16:06 | P.HPIM ---
History of Present Illness H&P Date: 09/11/23 Chief Complaint: Short of breath This is a pleasant 57-year-old patient who follows with Dr. Harris. Chronic stable medical conditions include CAD, COPD, diabetes, GERD, hyperlipidemia, hypertension, end-stage kidney disease with hemodialysis, obstructive sleep apnea, PAD, left foot BKA with the prosthesis, home oxygen 2.5 L at night. CAD with stent right foot third fourth and fifth toe amputated. Patient's process of moving his house with his for last 3 to 4 days. As result he did not get his peritoneal dialysis. Has not had it for last 4 days. Normally [place] up at night for 8 hours. Patient present increasing shortness of breath. Coughing. Chills. Decreased appetite. Tired. Patient is continue to smoke half a pack a day. Patient was started on peritoneal dialysis last night. Feeling slightly better this morning. Review of systems: GEN.: Tired decreased appetite EYES: None HEENT: None NECK: None RESPIRATORY: As above e CARDIOVASCULAR: [As above GASTROINTESTINAL: None GENITOURINARY: None MUSCULOSKELETAL: Some joint pains LYMPHATICS: None HEMATOLOGICAL: None PSYCHIATRY: None NEUROLOGICAL: Peripheral neuropathy e Social history: Lives with his . Smokes about half a pack a day for many years. No alcohol. Did use marijuana in the past. Physical examination: VITAL SIGNS: 98.9, 83, 616, 184 x 1 1 3, 93% room air GENERAL: BMI 38.3, reclining bed awake not in distress. EYES: Pupils equal. Conjunctiva julieta l. HEENT: External appearance of nose and ears normal, oral cavity grossly normal. NECK: JVD not raised; masses not palpable. HEART: First and second heart sounds are normal; no edema. LUNGS:[ Respiratory rate increased al; decreased breath sounds. ABDOMEN: Soft, nontender, liver spleen not palpable, no masses palpable. PSYCH: Alert and oriented x3; mood and affect julieta l. MUSCULOSKELETAL: Left BKA. With prosthesis. Right foot second third and fourth toe amputated. NEUROLOGICAL: Cranial nerves grossly intact; no facial asymmetry, power and sensation grossly intact. LYMPHATICS: No lymph nodes palpable in the axilla and neck INVESTIGATIONS, reviewed in the clinical context: September 09: White count 9.2 hemoglobin 12 platelets 203 potassium 5.1 BUN 54 creatinine 2.54 Influenza type A, type B, RSV, COVID-19: Not detected EKG tracing personally reviewed by me-normal sinus rhythm. Nonspecific ST/T wave changes Chest x-ray film personally reviewed by me-possible fluid overload Assessment plan: -Acute fluid overload from missed peritoneal dialysis for 4 days causing shortness of breath -End-stage kidney disease on peritoneal dialysis Nephrology consulted. Beatties resumed -Essential hypertension Toprol-XL 50 mg a day. Hydralazine 25 mg 3 times daily -Diabetes mellitus type 2, chronically insulin Resume home dose of insulin. Follow Accu-Cheks with sliding scale insulin -BPH Flomax -Hyperlipidemia Lipitor 80 mg nightly -Depression anxiety Prozac 40 mg twice daily -Diabetic peripheral neuropathy Neurontin 4 mg nightly -COPD in a current smoker Resume home inhalers -Left below-knee amputation with a prosthesis. Right foot second third and fourth toe amputation. -Full code Past Medical History Past Medical History: Coronary Artery Disease (CAD), Heart Failure, COPD, Diabetes Mellitus, Eye Disorder, GERD/Reflux, Hyperlipidemia, Hypertension, Myocardial Infarction ([place]), Renal Disease, Respiratory Disorder, Sleep Apnea/CPAP/BIPAP, Vascular Disorder Additional Past Medical History / Comment(s): Poor circulation in hands and legs/feet. lt foot bka, has prosthesis, past shingles 1997(face), " I take allo purinol to prevent gout", "on 2 occassions had dialysis, has muscle disorder in eye, HEMODIALYSIS TUTHSA , O2 AT 2.5 LITER DURING THE NIGHT Last Myocardial Infarction Date:: 2014 History of Any Multi-Drug Resistant Organisms: MRSA Date of last positivie culture/infection: approx 2015 MDRO Source:: right foot Past Surgical History: Heart Catheterization With Stent, Hernia Repair, Tonsillectomy Additional Past Surgical History / Comment(s): Right foot 3rd and 4th AND 5TH toes and area of foot amputated, cyst on scrotum removed. partial amp lt foot but had non healing wound which resulted in lt bka. matilde cataracts removed-has lens implants. x3 rt inguinal hernia sx and an umb hernia repair. BELOW KNEE AMPUTATION , COLONOSCOPY Past Anesthesia/Blood Transfusion Reactions: No Reported Reaction Additional Past Anesthesia/Blood Transfusion Reaction / Comment(s): States he was in the ICU after his surgery on his toes, but does not know why. Date of Last Stent Placement:: 05/2015 APPROX Smoking Status: Former smoker - Past Family History Father History Unknown: Yes Mother History Unknown: Yes Family Medical History: Cancer, Coronary Artery Disease (CAD) Additional Family Medical History / Comment(s): benign Brain tumor, [place] syndrome Sister(s) Family Medical History: No Reported History Medications and Allergies Home Medications Medication Instructions Recorded Confirmed Type Tamsulosin [Flomax] 0.4 mg PO DAILY 04/14/18 09/11/23 History Albuterol Inhaler [Ventolin Hfa 1 - 2 puff INHALATION RT-Q6H PRN 03/09/19 09/11/23 History Inhaler] Atorvastatin [Lipitor] 80 mg PO HS #90 tab 06/23/19 09/11/23 Rx Clopidogrel [Plavix] 75 mg PO DAILY #90 tab 06/23/19 09/11/23 Rx Nitroglycerin Sl Tabs [Nitrostat] 0.4 mg SUBLINGUAL Q5M PRN #25 tab 06/23/19 09/11/23 Rx hydrALAZINE HCL [Apresoline] 25 mg PO TID 02/23/22 09/11/23 History metOLazone [Zaroxolyn] 5 mg PO DAILY 02/23/22 09/11/23 History Fluticasone/Umeclidin/Vilanter 1 puff INHALATION RT-DAILY 02/24/22 09/11/23 History [Trelegy Ellipta 100-62.5-25] Isosorbide Mononitrate ER [Imdur] 60 mg PO DAILY 03/11/22 09/11/23 History Pantoprazole [Protonix] 80 mg PO HS 03/11/22 09/11/23 History oxyCODONE-APAP 10-325MG [Percocet 1 tab PO Q6HR PRN 03/11/22 09/11/23 History 10-325 mg] FLUoxetine HCL [PROzac] 40 mg PO BID 09/11/23 09/11/23 History Gabapentin [Neurontin] 400 mg PO HS 09/11/23 09/11/23 History Insulin NPH/Reg Insulin 70/30 75 unit SQ W/BRKFST 09/11/23 09/11/23 History [humuLIN 70/30 VIAL] Insulin NPH/Reg Insulin 70/30 80 unit SQ BID@1200,1700 09/11/23 09/11/23 History [humuLIN 70/30 VIAL] Metoprolol Succinate [Toprol XL] 50 mg PO DAILY 09/11/23 09/11/23 History Allergies Allergy/AdvReac Type Severity Reaction Status Date / Time codeine AdvReac headache, Verified 09/11/23 12:03 DIZZY, N/V hydrocodone [From Vicodin] AdvReac Nausea & Verified 09/11/23 12:03 Vomiting tramadol AdvReac Nausea & Verified 09/11/23 12:03 Vomiting Physical Exam Vitals: Vital Signs Temp Pulse Pulse Resp BP BP Pulse Ox 09/11/23 09:07 97.7 F 73 16 183/81 97 09/11/23 08:00 97.7 F 73 16 183/81 97 09/11/23 07:02 98.2 F 88 20 192/102 97 09/11/23 03:00 97.8 F 76 16 166/92 99 09/10/23 23:26 98 14 161/82 99 09/10/23 22:21 87 15 144/101 95 09/10/23 22:02 87 09/10/23 21:35 79 09/10/23 21:19 24 09/10/23 21:05 98.9 F 83 16 184/113 93 L Intake and Output 09/10/23 09/11/23 09/11/23 21:59 06:59 14:59 Intake Total 240 Output Total Balance 240 Intake: Oral 240 Output: Urine Other: Voiding Method Urinal Weight 121.2 kg Results CBC & Chem 7: 09/10/23 21:17 09/10/23 21:17 Labs: Abnormal Lab Results - Last 24 Hours (Table) 09/10/23 09/10/23 09/11/23 Range/Units 21:17 21:17 00:15 RBC 3.98 L (4.30-5.90) m/uL Hgb 12.0 L (13.0-17.5) gm/dL Hct 35.6 L (39.0-53.0) % Chloride 114 H (98-107) mmol/L BUN 54 H (9-20) mg/dL Creatinine 2.54 H (0.66-1.25) mg/dL Glucose 158 H (74-99) mg/dL POC Glucose (mg/dL) 155 H (70-110) mg/dL Alkaline Phosphatase 176 H (38-126) U/L 09/11/23 Range/Units 06:26 RBC (4.30-5.90) m/uL Hgb (13.0-17.5) gm/dL Hct (39.0-53.0) % Chloride (98-107) mmol/L BUN (9-20) mg/dL Creatinine (0.66-1.25) mg/dL Glucose (74-99) mg/dL POC Glucose (mg/dL) 277 H (70-110) mg/dL Alkaline Phosphatase (38-126) U/L Thrombosis Risk Factor Assmnt - Choose All That Apply Any of the Below Risk Factors Present?: Yes Each Factor Represents 1 point: Age 41-60 years, Obesity (BMI >25) Other Risk Factors: No Other congenital or acquired thrombophilia - If yes, enter type in comment: No Thrombosis Risk Factor Assessment Total Risk Factor Score: 2 Thrombosis Risk Factor Assessment Level: Low Risk
[2023-09-11 16:34] LABS: Glucose,Whole Blood 158 mg/dL (70-110)
[2023-09-11] MEDS: hydrALAZINE HCL 25 MG TAB PO SCH (17:18)
[2023-09-11] MEDS: DIALYSIS (PERIT 2.5%) 2,000 ML 50 G/2,000 ML BAG INTRAPERIT SCH (17:53)
[2023-09-11] MEDS ORDERED: DIALYSIS (PERIT 2.5%) 2,500 ML 62.5 G/2,500 ML BAG INTRAPERIT SCH (18:00)
[2023-09-11] MEDS ORDERED: DIALYSIS (PERITONEAL) DEX 2.5% 2,500 ML BAG INTRAPERIT SCH (18:00)
[2023-09-11 19:03] LABS: Glucose,Whole Blood 68 mg/dL (70-110)
[2023-09-11 19:44] LABS: Glucose,Whole Blood 97 mg/dL (70-110)
[2023-09-11] MEDS ORDERED: FLUoxetine HCL 20 MG CAP PO SCH (20:00)
[2023-09-11] MEDS: IPRATROPIUM 0.5 MG/2.5 ML NEBU INHALATION SCH (20:09)
[2023-09-11] MEDS ORDERED: MAGNESIUM OXIDE 400 MG TAB PO SCH (21:00)
[2023-09-11] MEDS ORDERED: GABAPENTIN 300 MG CAP PO SCH (21:00)
[2023-09-11] MEDS ORDERED: LORATADINE 10 MG TAB PO SCH (21:00)
[2023-09-11] MEDS ORDERED: ASPIRIN 81 MG PO SCH (21:00)
[2023-09-11] MEDS ORDERED: QUEtiapine 25 MG TAB PO SCH (21:00)
[2023-09-11 21:03] LABS: Glucose,Whole Blood 136 mg/dL (70-110)
[2023-09-11] MEDS: GABAPENTIN 400 MG CAP PO SCH (21:31)
[2023-09-11] MEDS: PANTOPRAZOLE 40 MG TABLET PO SCH (21:31)
[2023-09-11] MEDS: ATORVASTATIN 80 MG TAB PO SCH (21:32)
[2023-09-11] MEDS: amLODIPine 5 MG TAB PO SCH (21:32)
[2023-09-11] MEDS: SYMBICORT 80-4.5 MCG INHALER INHALATION SCH (21:33)
[2023-09-12 03:20] LABS: Glucose,Whole Blood 79 mg/dL (70-110)
[2023-09-12 05:46] LABS: Glucose,Whole Blood 125 mg/dL (70-110)
[2023-09-12] MEDS ORDERED: FERROUS SULFATE 325 MG TAB PO SCH (09:00)
[2023-09-12] MEDS: METOPROLOL SUCCINATE (ER) 50 MG TAB.ER.24H PO SCH (09:36)
[2023-09-12] MEDS: INSULN ASP PRT/INSULIN ASPART 100 UNIT/ML 10 ML VIAL SQ SCH (09:37)
[2023-09-12 10:00] VITALS: TEMP 97.9
--- NOTE | 2023-09-12 11:51 | P.PN ---
Subjective Patient is seen in follow-up for end-stage renal disease. He is maintained on peritoneal dialysis. No problems with PD exchanges. No chest pain or shortness of breath at this time. Vital signs are stable. General: No acute distress. HEENT: Head exam is unremarkable. LUNGS: No audible rhonchi or wheezes. HEART: Rate and Rhythm are regular. ABDOMEN: Obese, nontender. EXTREMITITES: Left BKA noted. Objective - Vital Signs Vital signs: Vital Signs Temp 97.9 F 09/12/23 09:34 Pulse 76 09/12/23 11:40 Resp 17 09/12/23 09:34 BP 134/63 09/12/23 09:34 Pulse Ox 97 09/12/23 09:34 FiO2 Intake & Output 09/11/23 09/12/23 09/12/23 18:59 06:59 18:59 Intake Total 240 10 240 Output Total 900 350 Balance -660 -340 240 Weight 121.2 kg 119.2 kg Intake: IV 10 Invasive Line 1 10 Oral 240 240 Output: Urine 900 350 Other: Voiding Method Urinal Urinal Urinal - Labs CBC & Chem 7: 09/10/23 21:17 09/10/23 21:17 Labs: Abnormal Lab Results - Last 24 Hours (Table) 09/11/23 09/11/23 09/11/23 Range/Units 16:33 19:02 21:02 POC Glucose (mg/dL) 158 H 68 L 136 H (70-110) mg/dL 09/12/23 Range/Units 05:44 POC Glucose (mg/dL) 125 H (70-110) mg/dL Assessment and Plan Plan: Assessment: 1. End-stage renal disease maintained on peritoneal dialysis. 2. Hypertension with chronic kidney disease. 3. Acute hypoxic respiratory failure secondary to volume overload. 4. Coronary disease with cardiac stent. 5. Diabetes mellitus. 6. Chronic kidney disease mineral bone disease. Phosphorus level 4.0 dated September 12, 2023. Plan: Maintain current PD exchanges - 2 L every 6 hours with 2.5% dextrose solution. Low-salt diet and 1500 cc fluid restriction. Maintain torsemide 40 mg daily. Stressed compliance with medications and dialysis treatments outpatient. Potential discharge today once has all the equipment to do peritoneal dialysis at his new apartment.
[2023-09-12 12:00] LABS: Glucose,Whole Blood 256 mg/dL (70-110)
[2023-09-12 13:30] VITALS: RESP 18
[2023-09-12 15:45] LABS: Glucose,Whole Blood 121 mg/dL (70-110)
[2023-09-12 15:49] VITALS: BP 130/74; PULSE 76
--- NOTE | 2023-09-12 17:52 | P.DS ---
Providers Date of admission: 09/10/23 22:34 Expected date of discharge: 09/12/23 Attending physician: Ruben Paz Consults: 09/10/23 22:34 Consult Physician Routine Consulting Provider: Luciano Melendez Consult Reason/Comments: ESRD-PD Do you want consulting provider notified?: Already Contacted Primary care physician: [facility] Course: Chief Complaint: Short of breath This is a pleasant 57-year-old patient who follows with Dr. Harris. Chronic stable medical conditions include CAD, COPD, diabetes, GERD, hyperlipidemia, hypertension, end-stage kidney disease with hemodialysis, obstructive sleep apnea, PAD, left foot BKA with the prosthesis, home oxygen 2.5 L at night. CAD with stent right foot third fourth and fifth toe amputated. Patient's process of moving his house with his for last 3 to 4 days. As result he did not get his peritoneal dialysis. Has not had it for last 4 days. Normally [place] up at night for 8 hours. Patient present increasing shortness of breath. Coughing. Chills. Decreased appetite. Tired. Patient is continue to smoke half a pack a day. Patient was started on peritoneal dialysis last night. Feeling slightly better this morning. September 11: Breathing much better. Has been getting better to dialysis. Cleared by nephrology for discharge. Discussed with patient. Advised against smoking. For blood pressure amlodipine was added. Social history: Lives with his . Smokes about half a pack a day for many years. No alcohol. Did use marijuana in the past. Physical examination: VITAL SIGNS: Afebrile, 72, 18, 130 x 72, 97% room air GENERAL: BMI 38.3, reclining bed, comfortable EYES: Pupils equal. Conjunctiva julieta l. HEENT: External appearance of nose and ears normal, oral cavity grossly normal. NECK: JVD not raised; masses not palpable. HEART: First and second heart sounds are normal; no edema. LUNGS:[ Respiratory rate increased al; decreased breath sounds. ABDOMEN: Soft, nontender, liver spleen not palpable, no masses palpable. PSYCH: Alert and oriented x3; mood and affect julieta l. MUSCULOSKELETAL: Left BKA. With prosthesis. Right foot second third and fourth toe amputated. INVESTIGATIONS, reviewed in the clinical context: September 09: White count 9.2 hemoglobin 12 platelets 203 potassium 5.1 BUN 54 creatinine 2.54 Influenza type A, type B, RSV, COVID-19: Not detected EKG tracing personally reviewed by me-normal sinus rhythm. Nonspecific ST/T wave changes Chest x-ray film personally reviewed by me-possible fluid overload Assessment plan: -Acute fluid overload from missed peritoneal dialysis for 4 days causing shortness of breath: Much better -End-stage kidney disease on peritoneal dialysis Nephrology consulted. Dialysis resumed -Essential hypertension Toprol-XL 50 mg a day. Hydralazine 25 mg 3 times daily -Diabetes mellitus type 2, chronically insulin Resume home dose of insulin. Follow Accu-Cheks with sliding scale insulin -BPH Flomax -Hyperlipidemia Lipitor 80 mg nightly -Depression anxiety Prozac 40 mg twice daily -Diabetic peripheral neuropathy Neurontin 4 mg nightly -COPD in a current smoker Resume home inhalers -Left below-knee amputation with a prosthesis. Right foot second third and fourth toe amputation. -Full code Past Medical History Past Medical History: Coronary Artery Disease (CAD), Heart Failure, COPD, Diabetes Mellitus, Eye Disorder, GERD/Reflux, Hyperlipidemia, Hypertension, Myocardial Infarction ([place]), Renal Disease, Respiratory Disorder, Sleep Apnea/CPAP/BIPAP, Vascular Disorder Additional Past Medical History / Comment(s): Poor circulation in hands and legs/feet. 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 partial amp lt foot but had non healing wound which resulted in lt bka. matilde cataracts removed-has lens implants. x3 rt inguinal hernia sx and an umb hernia repair. BELOW KNEE AMPUTATION , COLONOSCOPY Past Anesthesia/Blood Transfusion Reactions: No Reported Reaction Additional Past Anesthesia/Blood Transfusion Reaction / Comment(s): States he was in the ICU after his surgery on his toes, but does not know why. Date of Last Stent Placement:: 05/2015 APPROX Smoking Status: Former smoker Plan - Discharge Summary Discharge Rx Participant: No New Discharge Prescriptions: New amLODIPine [Norvasc] 5 mg PO BID #60 tab Continue Tamsulosin [Flomax] 0.4 mg PO DAILY Albuterol Inhaler [Ventolin Hfa Inhaler] 1 - 2 puff INHALATION RT-Q6H PRN PRN Reason: Shortness Of Breath Atorvastatin [Lipitor] 80 mg PO HS #90 tab Nitroglycerin Sl Tabs [Nitrostat] 0.4 mg SUBLINGUAL Q5M PRN #25 tab PRN Reason: Chest Pain Clopidogrel [Plavix] 75 mg PO DAILY #90 tab metOLazone [Zaroxolyn] 5 mg PO DAILY Isosorbide Mononitrate ER [Imdur] 60 mg PO DAILY Pantoprazole [Protonix] 80 mg PO HS Metoprolol Succinate [Toprol XL] 50 mg PO DAILY hydrALAZINE HCL [Apresoline] 25 mg PO TID Fluticasone/Umeclidin/Vilanter [Trelegy Ellipta 100-62.5-25] 1 puff INHALATION RT-DAILY oxyCODONE-APAP 10-325MG [Percocet 10-325 mg] 1 tab PO Q6HR PRN PRN Reason: Pain Insulin NPH/Reg Insulin 70/30 [humuLIN 70/30 VIAL] 80 unit SQ BID@1200,1700 Gabapentin [Neurontin] 400 mg PO HS FLUoxetine HCL [PROzac] 40 mg PO BID Insulin NPH/Reg Insulin 70/30 [humuLIN 70/30 VIAL] 75 unit SQ W/BRKFST Discharge Medication List Tamsulosin [Flomax] 0.4 mg PO DAILY 04/14/18 [History] Albuterol Inhaler [Ventolin Hfa Inhaler] 1 - 2 puff INHALATION RT-Q6H PRN 03/09/19 [History] Atorvastatin [Lipitor] 80 mg PO HS #90 tab 06/23/19 [Rx] Clopidogrel [Plavix] 75 mg PO DAILY #90 tab 06/23/19 [Rx] Nitroglycerin Sl Tabs [Nitrostat] 0.4 mg SUBLINGUAL Q5M PRN #25 tab 06/23/19 [Rx] hydrALAZINE HCL [Apresoline] 25 mg PO TID 02/23/22 [History] metOLazone [Zaroxolyn] 5 mg PO DAILY 02/23/22 [History] Fluticasone/Umeclidin/Vilanter [Trelegy Ellipta 100-62.5-25] 1 puff INHALATION RT-DAILY 02/24/22 [History] Isosorbide Mononitrate ER [Imdur] 60 mg PO DAILY 03/11/22 [History] Pantoprazole [Protonix] 80 mg PO HS 03/11/22 [History] oxyCODONE-APAP 10-325MG [Percocet 10-325 mg] 1 tab PO Q6HR PRN 03/11/22 [History] FLUoxetine HCL [PROzac] 40 mg PO BID 09/11/23 [History] Gabapentin [Neurontin] 400 mg PO HS 09/11/23 [History] Insulin NPH/Reg Insulin 70/30 [humuLIN 70/30 VIAL] 75 unit SQ W/BRKFST 09/11/23 [History] Insulin NPH/Reg Insulin 70/30 [humuLIN 70/30 VIAL] 80 unit SQ BID@1200,1700 09/11/23 [History] Metoprolol Succinate [Toprol XL] 50 mg PO DAILY 09/11/23 [History] amLODIPine [Norvasc] 5 mg PO BID #60 tab 09/12/23 [Rx] Follow up Appointment(s)/Referral(s): López Harris DO [Primary Care Provider] - 1-2 days Discharge Disposition: HOME WITH HOME HEALTH SERVICES
== END 2023-09-12 15:47 | disposition home health service (06) ==
LOC: EC 20:58 → 5NMEDONC 22:34 → 3SCARD 23:32
PROVIDERS: ADMIT Hospitalist; ATTEND Hospitalist
DX: J96.01 Acute respiratory failure with hypoxia (principal); E87.70 Fluid overload, unspecified; I13.2 Hypertensive heart and chronic kidney disease with heart failure and with stage 5 chronic kidney disease, or end stage renal disease; N18.6 End stage renal disease; I50.9 Heart failure, unspecified; E11.22 Type 2 diabetes mellitus with diabetic chronic kidney disease; I25.10 Atherosclerotic heart disease of native coronary artery without angina pectoris; J44.9 Chronic obstructive pulmonary disease, unspecified; K21.9 Gastro-esophageal reflux disease without esophagitis; E78.5 Hyperlipidemia, unspecified; G47.30 Sleep apnea, unspecified; F32.A Depression, unspecified; F41.0 Panic disorder [episodic paroxysmal anxiety]; N25.0 Renal osteodystrophy; I25.2 Old myocardial infarction; E11.51 Type 2 diabetes mellitus with diabetic peripheral angiopathy without gangrene; N40.0 Benign prostatic hyperplasia without lower urinary tract symptoms; E66.9 Obesity, unspecified; Z68.37 Body mass index [BMI] 37.0-37.9, adult; Z89.512 Acquired absence of left leg below knee; Z95.5 Presence of coronary angioplasty implant and graft; Z99.2 Dependence on renal dialysis; Z79.899 Other long term (current) drug therapy; Z79.82 Long term (current) use of aspirin; Z79.4 Long term (current) use of insulin; Z79.02 Long term (current) use of antithrombotics/antiplatelets; Z88.5 Allergy status to narcotic agent
CPT/HCPCS: 96374; 99285; 36415; 94640 ×5; 93005; 83880; 80053; 84100; 85025; 85610; 85730; 87636; 71046; G0378 ×3; J0360; A4722 ×3

== ENCOUNTER 2023-10-12 20:14 | Outpatient (CLI) | payer MEDICARE ==
--- NOTE | 2023-10-25 12:57 | P.PCN ---
Date of Procedure: 10/12/23 Operative Findings: Polysomnography report Date of services 10/12/2023 Pertinent history This is a 57-year-old male patient with known history of obstructive sleep apnea who has been treated with BiPAP on outpatient setting. He has not been compliant with treatment and he was having some issues with equipment supply and financial issues with his DME. At that point, the treatment was discontinued. A repeat evaluation was requested and the patient is undergoing the evaluation again specially with his symptomatic obstructive sleep apnea. Based on that, his screening polysomnography was ordered. The patient is known to have COPD maintained on Trelegy Ellipta on outpatient basis, he is a smoker, he is known to have end-stage renal disease on hemodialysis, he is morbidly obese along with that he has hypertension, diabetes mellitus and previous amputation of the left below the knee. Pertinent physical findings The patient's height is 5 feet and 10 inches, weight is 279 pounds and a body mass index is 40 Technical description The patient was studied using a standard complex polysomnography protocol that included recording of the 2 EKG, Central, occipital and frontal EEG, right and left outer canthus EOG, submental EMG, right and left anterior tibialis EMG, respiratory airflow by thermocouple and or pressure/flow transducer, respiratory efforts by abdominal and thoracic PVDF belts, oxygen saturation by cable oximetry. Position by observation synchronized the PSG. Equipment used: [employer]. Sleep characteristics The total recording duration was 433.5 minutes. Total sleep time was 381.5 minutes. The sleep efficiency was calculated to be at 88%. The latency to sleep onset was 5.5 minutes. The latency to REM sleep was 110.5 minutes. The sleep architecture was catheterized by 9.2% stage I, 76.7% stage II, 0% stage III and 14.2% REM sleep. The wake after sleep onset time was 46.5 minutes. The total arousal index was 34 Respiratory analysis The sleep study showed a total of 503 obstructive events of which to 98 were obstructive apneas, 205 were hypopneas and no mixed apneas were noted, no central apneas were noted. AHI was calculated to be at 78.3 Oxygenation analysis Severe nocturnal oxygen desaturations were encountered with the lowest pulse ox of 79% during REM sleep. Baseline pulse ox while awake was 91% and the patient spent approximately 2 hours and 23 minutes of sleep time with a pulse ox of 89% and below Sleep continuity summary The patient had a total of 216 arousals with an index of 34 and respiratory arousal index was 12.4 Periodic limb movements None Cardiac summary Average heart rate was 66 with a minimum heart rate of 63 and a maximum heart rate of 69 Assessment Severe symptomatic obstructive sleep apnea with an AHI of 78.3 , with severe oxygen desaturations . The patient will need a in lab CPAP titration. Chronic hypersomnia secondary to above Advanced COPD Peripheral vascular disease with previous BKA on the left End-stage renal disease on hemodialysis Coronary artery disease Diabetes mellitus Hypertension Hyperlipidemia Acid reflux History of smoking Plan Proceed with an in lab CPAP titration. Will make sure that the patient will receive the appropriate device and the mask interface to make the treatment successful. Will do a close follow-up following his CPAP titration to make sure that the patient is compliant and tolerating the treatment. He needs to work on optimizing his comorbidities and losing weight. He continues to undergo dialysis.
== END 2023-10-13 05:45 | disposition home or self-care (01) ==
LOC: 3 N SLEEP 20:14
PROVIDERS: ATTEND Internal Medicine Critical Care Medicine
DX: G47.33 Obstructive sleep apnea (adult) (pediatric) (principal); G47.10 Hypersomnia, unspecified; E11.51 Type 2 diabetes mellitus with diabetic peripheral angiopathy without gangrene; J44.9 Chronic obstructive pulmonary disease, unspecified; I12.0 Hypertensive chronic kidney disease with stage 5 chronic kidney disease or end stage renal disease; E11.22 Type 2 diabetes mellitus with diabetic chronic kidney disease; N18.6 End stage renal disease; I25.10 Atherosclerotic heart disease of native coronary artery without angina pectoris; E78.5 Hyperlipidemia, unspecified; K21.9 Gastro-esophageal reflux disease without esophagitis; F17.200 Nicotine dependence, unspecified, uncomplicated; Z88.5 Allergy status to narcotic agent; Z79.4 Long term (current) use of insulin; Z79.899 Other long term (current) drug therapy; Z99.2 Dependence on renal dialysis
CPT/HCPCS: 95810

== ENCOUNTER 2023-11-22 19:52 | Outpatient (CLI) | payer MEDICARE | END 2023-11-23 05:12 | disposition home or self-care (01) | LOC: 3 N SLEEP 19:52 | PROVIDERS: ATTEND Internal Medicine Critical Care Medicine | DX: G47.33 Obstructive sleep apnea (adult) (pediatric) (principal); J44.9 Chronic obstructive pulmonary disease, unspecified; F17.200 Nicotine dependence, unspecified, uncomplicated; N28.9 Disorder of kidney and ureter, unspecified; E66.01 Morbid (severe) obesity due to excess calories; E11.21 Type 2 diabetes mellitus with diabetic nephropathy; I10 Essential (primary) hypertension; Z89.519 Acquired absence of unspecified leg below knee; Z88.5 Allergy status to narcotic agent; Z79.4 Long term (current) use of insulin; Z79.899 Other long term (current) drug therapy; Z79.51 Long term (current) use of inhaled steroids; Z79.02 Long term (current) use of antithrombotics/antiplatelets | CPT/HCPCS: 95811 ==

== ENCOUNTER 2023-12-16 17:11 | Inpatient (IN) | payer MEDICARE ==
--- NOTE | 2023-12-16 17:27 | ED ---
General Adult HPI - General Chief complaint: Shortness of Breath Stated complaint: SOB Time Seen by Provider: 12/16/23 17:17 Source: patient, RN notes reviewed Mode of arrival: EMS Limitations: no limitations - History of Present Illness Initial comments: Patient is a 58-year-old male present to the emergency department with concerns with difficulty in breathing. Symptoms have progressed over the past 2 to 3 days. No significant cough. No fever or chills. Symptoms are similar to previous COPD. No chest pain. - Related Data Home Medications Medication Instructions Recorded Confirmed Tamsulosin [Flomax] 0.4 mg PO DAILY 04/14/18 09/11/23 Albuterol Inhaler [Ventolin Hfa 1 - 2 puff INHALATION RT-Q6H PRN 03/09/19 09/11/23 Inhaler] hydrALAZINE HCL [Apresoline] 25 mg PO TID 02/23/22 09/11/23 metOLazone [Zaroxolyn] 5 mg PO DAILY 02/23/22 09/11/23 Fluticasone/Umeclidin/Vilanter 1 puff INHALATION RT-DAILY 02/24/22 09/11/23 [Trelegy Ellipta 100-62.5-25] Isosorbide Mononitrate ER [Imdur] 60 mg PO DAILY 03/11/22 09/11/23 Pantoprazole [Protonix] 80 mg PO HS 03/11/22 09/11/23 oxyCODONE-APAP 10-325MG [Percocet 1 tab PO Q6HR PRN 03/11/22 09/11/23 10-325 mg] FLUoxetine HCL [PROzac] 40 mg PO BID 09/11/23 09/11/23 Gabapentin [Neurontin] 400 mg PO HS 09/11/23 09/11/23 Insulin NPH/Reg Insulin 70/30 75 unit SQ W/BRKFST 09/11/23 09/11/23 [humuLIN 70/30 VIAL] Insulin NPH/Reg Insulin 70/30 80 unit SQ BID@1200,1700 09/11/23 09/11/23 [humuLIN 70/30 VIAL] Metoprolol Succinate [Toprol XL] 50 mg PO DAILY 09/11/23 09/11/23 Previous Rx's Medication Instructions Recorded Atorvastatin [Lipitor] 80 mg PO HS #90 tab 06/23/19 Clopidogrel [Plavix] 75 mg PO DAILY #90 tab 06/23/19 Nitroglycerin Sl Tabs [Nitrostat] 0.4 mg SUBLINGUAL Q5M PRN #25 tab 06/23/19 amLODIPine [Norvasc] 5 mg PO BID #60 tab 09/12/23 Allergies Allergy/AdvReac Type Severity Reaction Status Date / Time codeine AdvReac headache, Verified 09/11/23 12:03 DIZZY, N/V hydrocodone [From Vicodin] AdvReac Nausea & Verified 09/11/23 12:03 Vomiting tramadol AdvReac Nausea & Verified 09/11/23 12:03 Vomiting Review of Systems ROS Statement: Those systems with pertinent positive or pertinent negative responses have been documented in the HPI. ROS Other: All systems not noted in ROS Statement are negative. Constitutional: Denies: fever, chills Eyes: Denies: eye pain ENT: Denies: ear pain Respiratory: Reports: as per HPI, dyspnea Cardiovascular: Denies: chest pain Endocrine: Reports: fatigue Gastrointestinal: Denies: abdominal pain Past Medical History Past Medical History: Coronary Artery Disease (CAD), Heart Failure, COPD, Diabetes Mellitus, Eye Disorder, GERD/Reflux, Hyperlipidemia, Hypertension, Myocardial Infarction ([place]), Renal Disease, Respiratory Disorder, Sleep Apnea/CPAP/BIPAP, Vascular Disorder Additional Past Medical History / Comment(s): Poor circulation in hands and legs/feet. 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 partial amp lt foot but had non healing wound which resulted in lt bka. matilde cataracts removed-has lens implants. x3 rt inguinal hernia sx and an umb hernia repair. BELOW KNEE AMPUTATION , COLONOSCOPY Past Anesthesia/Blood Transfusion Reactions: No Reported Reaction Additional Past Anesthesia/Blood Transfusion Reaction / Comment(s): States he was in the ICU after his surgery on his toes, but does not know why. Date of Last Stent Placement:: 05/2015 APPROX Past Psychological History: Anxiety, Depression, Panic Disorder Smoking Status: Former smoker - Past Family History Father History Unknown: Yes Mother History Unknown: Yes Family Medical History: Cancer, Coronary Artery Disease (CAD) Additional Family Medical History / Comment(s): benign Brain tumor, [place] syndrome Sister(s) Family Medical History: No Reported History General Exam Limitations: no limitations General appearance: alert Head exam: Present: normocephalic Eye exam: Present: normal appearance Neck exam: Present: normal inspection Respiratory exam: Present: respiratory distress, wheezes, accessory muscle use, decreased breath sounds Cardiovascular Exam: Present: regular rate, normal rhythm GI/Abdominal exam: Present: soft. Absent: tenderness Extremities exam: Present: other (Left leg amputation) Neurological exam: Present: alert Psychiatric exam: Present: normal affect, normal mood Skin exam: Present: normal color Course Vital Signs 12/16/23 12/16/23 12/16/23 17:13 17:19 17:52 Temperature 97.6 F Pulse Rate 90 83 80 Respiratory 26 H Rate Blood Pressure 167/88 O2 Sat by Pulse 81 L 93 L Oximetry 12/16/23 12/16/23 18:01 19:09 Temperature Pulse Rate 82 77 Respiratory Rate Blood Pressure 165/89 O2 Sat by Pulse 89 L Oximetry EKG Findings - EKG Results: EKG: interpreted by ERMD (Left axis. Septal Q waves.), sinus rhythm, normal ST/T Medical Decision Making - Medical Decision Making Was pt. sent in by a medical professional or institution (, PA, ELECTION WATCHER, urgent care, hospital, or jail...) When possible be specific @ -No Did you speak to anyone other than the patient for history (EMS, parent, family, police, friend...)? What history was obtained from this source @ -EMS provides history of transport Did you review nursing and triage notes (agree or disagree)? Why? @ -I reviewed and agree with nursing and triage notes Were old charts reviewed (outside hosp., previous admission, EMS record, old EKG, old radiological studies, urgent care reports/EKG's, jail records)? Report findings @ -Previous chest x-ray reviewed Differential Diagnosis (chest pain, altered mental status, abdominal pain women, abdominal pain men, vaginal bleeding, weakness, fever, dyspnea, syncope, headache, dizziness, GI bleed, back pain, seizure, CVA, palpatations, mental health, musculoskeletal)? @ -Differential Dyspnea: Coronary syndrome, arrhythmia, tamponade, asthma, COPD, pulmonary embolism, pneumonia, pneumothorax, pulmonary effusion, anaphylaxis, diabetic ketoacidosis, flailed chest, pulmonary contusion, diaphragmatic rupture, anemia, neuromuscular, this is not meant to be an all-inclusive list. EKG interpreted by me (3pts min.). @ -As above X-rays interpreted by me (1pt min.). @ -Chest x-ray shows CHF CT interpreted by me (1pt min.). @ -None done U/S interpreted by me (1pt. min.). @ -None done What testing was considered but not performed or refused? (CT, X-rays, U/S, labs)? Why? @ -None What meds were considered but not given or refused? Why? @ -None Did you discuss the management of the patient with other professionals (professionals i.e. DrGayle, PA, ELECTION WATCHER, lab, RT, psych nurse, social worker assistant, search director, teacher, chief resource officer, case monitor)? Give summary @ -Case was discussed with Allison Mccabe, admission for Dr. Harris will admit to Was smoking cessation discussed for >3mins.? @ -No Was critical care preformed (if so, how long)? @ -31 minutes critical care time Were there social determinants of health that impacted care today? How? (Homelessness, low income, unemployed, alcoholism, drug addiction, transportation, low edu. Level, literacy, decrease access to med. care, mcc, rehab)? @ -No Was there de-escalation of care discussed even if they declined (Discuss DNR or withdrawal of care, Hospice)? DNR status @ -No What co-morbidities impacted this encounter? (DM, HTN, Smoking, COPD, CAD, Cancer, CVA, ARF, Chemo, Hep., AIDS, mental health diagnosis, sleep apnea, morbid obesity)? @ -None Was patient admitted / discharged? Hospital course, mention meds given and route, prescriptions, significant lab abnormalities, going to OR and other pertinent info. @ -Patient reevaluated. Patient has continued accessory muscle use. Concern for CHF with COPD. Patient will be placed on BiPAP and admitted with consult. Admission orders written. Undiagnosed new problem with uncertain prognosis? @ -No Drug Therapy requiring intensive monitoring for toxicity (Heparin, Nitro, Insulin, Cardizem)? @ -No Were any procedures done? @ -No Diagnosis/symptom? @ -CHF, respiratory failure Acute, or Chronic, or Acute on Chronic? @ -Acute, acute Uncomplicated (without systemic symptoms) or Complicated (systemic symptoms)? @ -Default Side effects of treatment? @ -No Exacerbation, Progression, or Severe Exacerbation? @ -Exacerbation of CHF Poses a threat to life or bodily function? How? (Chest pain, [place], [place], pneumonia, PE, COPD, DKA, ARF, appy, cholecystitis, CVA, Diverticulitis, Homicidal, Suicidal, threat to staff... and all critical care pts) @ -No - Lab Data Result diagrams: 12/16/23 17:33 12/16/23 17:33 Lab Results 12/16/23 12/16/23 12/16/23 Range/Units 17:33 17:33 17:33 WBC 8.8 (3.8-10.6) k/uL RBC 3.61 L (4.30-5.90) m/uL Hgb 10.5 L (13.0-17.5) gm/dL Hct 33.2 L (39.0-53.0) % MCV 92.1 (80.0-100.0) fL MCH 29.1 (25.0-35.0) pg MCHC 31.6 (31.0-37.0) g/dL RDW 14.1 (11.5-15.5) % Plt Count 235 (150-450) k/uL MPV 8.9 Neutrophils % 75 % Lymphocytes % 18 % Monocytes % 5 % Eosinophils % 1 % Basophils % 0 % Neutrophils # 6.6 (1.3-7.7) k/uL Lymphocytes # 1.6 (1.0-4.8) k/uL Monocytes # 0.4 (0-1.0) k/uL Eosinophils # 0.1 (0-0.7) k/uL Basophils # 0.0 (0-0.2) k/uL PT 10.8 (10.0-12.5) sec INR 1.0 (<1.2) APTT 27.2 (22.0-30.0) sec Sodium 138 (137-145) mmol/L Potassium 5.4 H (3.5-5.1) mmol/L Chloride 107 (98-107) mmol/L Carbon Dioxide 26 (22-30) mmol/L Anion Gap 5 mmol/L BUN 53 H (9-20) mg/dL Creatinine 2.64 H (0.66-1.25) mg/dL Est GFR (CKD-EPI)AfAm 29 (>60 ml/min/1.73 sqM) Est GFR (CKD-EPI)NonAf 25 (>60 ml/min/1.73 sqM) Glucose 206 H (74-99) mg/dL Plasma Lactic Acid Anant (0.7-2.0) mmol/L Calcium 8.7 (8.4-10.2) mg/dL Magnesium 2.2 (1.6-2.3) mg/dL Total Bilirubin 0.4 (0.2-1.3) mg/dL AST 21 (17-59) U/L ALT 23 (4-49) U/L Alkaline Phosphatase 184 H (38-126) U/L Total Protein 6.3 (6.3-8.2) g/dL Albumin 3.4 L (3.5-5.0) g/dL 12/16/23 Range/Units 17:33 WBC (3.8-10.6) k/uL RBC (4.30-5.90) m/uL Hgb (13.0-17.5) gm/dL Hct (39.0-53.0) % MCV (80.0-100.0) fL MCH (25.0-35.0) pg MCHC (31.0-37.0) g/dL RDW (11.5-15.5) % Plt Count (150-450) k/uL MPV Neutrophils % % Lymphocytes % % Monocytes % % Eosinophils % % Basophils % % Neutrophils # (1.3-7.7) k/uL Lymphocytes # (1.0-4.8) k/uL Monocytes # (0-1.0) k/uL Eosinophils # (0-0.7) k/uL Basophils # (0-0.2) k/uL PT (10.0-12.5) sec INR (<1.2) APTT (22.0-30.0) sec Sodium (137-145) mmol/L Potassium (3.5-5.1) mmol/L Chloride (98-107) mmol/L Carbon Dioxide (22-30) mmol/L Anion Gap mmol/L BUN (9-20) mg/dL Creatinine (0.66-1.25) mg/dL Est GFR (CKD-EPI)AfAm (>60 ml/min/1.73 sqM) Est GFR (CKD-EPI)NonAf (>60 ml/min/1.73 sqM) Glucose (74-99) mg/dL Plasma Lactic Acid Anant 0.8 (0.7-2.0) mmol/L Calcium (8.4-10.2) mg/dL Magnesium (1.6-2.3) mg/dL Total Bilirubin (0.2-1.3) mg/dL AST (17-59) U/L ALT (4-49) U/L Alkaline Phosphatase (38-126) U/L Total Protein (6.3-8.2) g/dL Albumin (3.5-5.0) g/dL Critical Care Time Critical Care Time: Yes Disposition Clinical Impression: Acute exacerbation of chronic obstructive pulmonary disease, Acute respiratory failure, CHF (congestive heart failure) Disposition: ADMITTED IP TO THIS HOSP Is patient prescribed a controlled substance at d/c from ED?: No Referrals: López Harris DO [Primary Care Provider] - 1-2 days Time of Disposition: 19:19
[2023-12-16] MEDS: methylPREDNISolone SOD SUCCI 125 MG/2 ML VIAL IV STA (17:42)
[2023-12-16] MEDS: IPRATROPIUM-ALBUTEROL 3 ML NEB INHALATION STA ×2 (17:49→18:44)
[2023-12-16 17:51] LABS: Basophils % (A) 0 %; Eosinophils # (A) 0.1 k/uL (0-0.7); Eosinophils % (A) 1 %; HCT 33.2 % (39.0-53.0); HGB 10.5 gm/dL (13.0-17.5); Lymphocytes # (A) 1.6 k/uL (1.0-4.8); Lymphocytes % (A) 18 %; MCH 29.1 pg (25.0-35.0); MCHC 31.6 g/dL (31.0-37.0); MCV 92.1 fL (80.0-100.0); Mean Platelet Volume 8.9; Monocytes # (A) 0.4 k/uL (0-1.0); Monocytes % (A) 5 %; Neutrophils # (A) 6.6 k/uL (1.3-7.7); Neutrophils % (A) 75 %; Platelet Count 235 k/uL (150-450); RBC 3.61 m/uL (4.30-5.90); RDW 14.1 % (11.5-15.5); WBC 8.8 k/uL (3.8-10.6)
[2023-12-16 18:09] LABS: Partial Thromboplastin Time 27.2 sec (22.0-30.0); Prothrombin Time 10.8 sec (10.0-12.5)
[2023-12-16 18:13] LABS: ALT 23 U/L (4-49); AST 21 U/L (17-59); African American GFR (CKD) 29 (>60 ml/min/1.73 sqM); Albumin 3.4 g/dL (3.5-5.0); Alkaline Phosphatase 184 U/L (38-126); Anion Gap 5 mmol/L; Blood Urea Nitrogen 53 mg/dL (9-20); Calcium 8.7 mg/dL (8.4-10.2); Carbon Dioxide 26 mmol/L (22-30); Chloride 107 mmol/L (98-107); Glucose 206 mg/dL (74-99); Magnesium 2.2 mg/dL (1.6-2.3); Non-African American GFR(CKD) 25 (>60 ml/min/1.73 sqM); Potassium 5.4 mmol/L (3.5-5.1); Sodium 138 mmol/L (137-145); Total Bilirubin 0.4 mg/dL (0.2-1.3); Total Protein 6.3 g/dL (6.3-8.2)
--- NOTE | 2023-12-16 19:14 | XR ---
EXAMINATION TYPE: XR chest 2V DATE OF EXAM: 12/16/2023 COMPARISON: 09/10/2023 TECHNIQUE: PA and lateral views submitted. HISTORY: Difficulty breathing FINDINGS: A diffuse interstitial pattern with bilateral consolidation and pleural effusion. Heart is enlarged. Atherosclerotic change of aorta. IMPRESSION: 1. Correlate for CHF otherwise consider interstitial pneumonitis..
[2023-12-16] MEDS ORDERED: IPRATROPIUM-ALBUTEROL 3 ML NEB INHALATION PRN (19:20)
[2023-12-16] MEDS ORDERED: NALOXONE 0.4 MG/ML 1 ML VIAL IVP PRN (19:20)
[2023-12-16] MEDS: FUROSEMIDE 10 MG/ML 4 ML VIAL IV STA (19:33)
[2023-12-16] MEDS: ASPIRIN 325 MG TAB PO STA (19:38)
[2023-12-16] MEDS: hydrALAZINE HCL 25 MG TAB PO SCH (21:28)
[2023-12-16] MEDS: IPRATROPIUM-ALBUTEROL 3 ML NEB INHALATION SCH (21:37)
[2023-12-17] MEDS: methylPREDNISolone SOD SUCCI 125 MG/2 ML VIAL IV SCH (01:14)
[2023-12-17] MEDS: oxyCODONE-APAP 10-325MG 1 EACH TAB PO SCH ×2 (01:34→12:18)
[2023-12-17 06:02] LABS: Glucose,Whole Blood 334 mg/dL (70-110)
[2023-12-17] MEDS: FUROSEMIDE 10 MG/ML 4 ML VIAL IV SCH (06:07)
[2023-12-17] MEDS: TAMSULOSIN 0.4 MG CAP.ER.24H PO SCH (08:22)
[2023-12-17] MEDS: metOLazone 5 MG TAB PO SCH (08:22)
[2023-12-17] MEDS: ISOSORBIDE MONONITRATE ER 60 MG TAB.ER.24H PO SCH (08:22)
[2023-12-17] MEDS: CLOPIDOGREL 75 MG TAB PO SCH (08:22)
[2023-12-17] MEDS: METOPROLOL SUCCINATE (ER) 50 MG TAB.ER.24H PO SCH (08:22)
[2023-12-17] MEDS: FLUoxetine HCL 20 MG CAP PO SCH (08:22)
[2023-12-17] MEDS: amLODIPine 5 MG TAB PO SCH (08:22)
[2023-12-17] MEDS: PANTOPRAZOLE 40 MG TABLET PO SCH (08:23)
[2023-12-17] MEDS ORDERED: ASPIRIN 325 MG TAB PO SCH (09:00)
[2023-12-17] MEDS: SYMBICORT 80-4.5 MCG INHALER INHALATION SCH (09:05)
[2023-12-17] MEDS ORDERED: DEXTROSE 50% SYRINGE 50 ML IVP PRN ×2 (09:53)
[2023-12-17 12:09] LABS: Glucose,Whole Blood 493 mg/dL (70-110)
[2023-12-17] MEDS: cloNIDine HCL 0.1 MG TAB PO SCH (12:14)
[2023-12-17] MEDS: INSULIN ASPART (NovoLOG) 100 UNIT/ML VIAL SQ SCH (12:14)
--- NOTE | 2023-12-17 12:38 | P.HPIM ---
History of Present Illness 58-year-old male came with complaints of shortness of breath orthopnea, patient has pulm edema patient is peritoneal dialysis patient with chronic kidney disease, end-stage renal disease. Patient states he is compliant with his medications and his diet patient was on torsemide 20 mg twice a day along with metolazone 5 mg on daily basis at home. Patient was started on IV Lasix for 40 mg every 8 hourly with good urine output. He does not have any fever chills chest x-ray did not show any pneumonia did show pulm edema patient's BNP is around 5000 REVIEW OF SYSTEMS: CONSTITUTIONAL: No fever, no malaise, no fatigue. HEENT: No recent visual problems or hearing problems. Denied any sore throat. CARDIOVASCULAR: No chest pain, no palpitations, no syncope. PULMONARY: no hemoptysis. GASTROINTESTINAL: No diarrhea, no nausea, no vomiting, no abdominal pain. NEUROLOGICAL: No headaches, no weakness, no numbness. HEMATOLOGICAL: Denies any bleeding or petechiae. GENITOURINARY: Denies any burning micturition, frequency, or urgency. MUSCULOSKELETAL/RHEUMATOLOGICAL: Denies any joint pain, swelling, or any muscle pain. ENDOCRINE: Denies any polyuria or polydipsia. The rest of the 14-point review of systems is negative. PHYSICAL EXAMINATION: GENERAL: The patient is alert and oriented x3, not in any acute distress. Well developed, well nourished. HEENT: Pupils are round and equally reacting to light. EOMI. No scleral icterus. No conjunctival pallor. Normocephalic, atraumatic. No pharyngeal erythema. No thyromegaly. CARDIOVASCULAR: S1 and S2 present. No murmurs, rubs, or gallops. PULMONARY: Chest is clear to auscultation, no wheezing or crackles. ABDOMEN: Soft, nontender, nondistended, normoactive bowel sounds. No palpable organomegaly. MUSCULOSKELETAL: No joint swelling or deformity. EXTREMITIES: No cyanosis, clubbing, or pedal edema. Patient has an amputation on the left side as well as toe amputation on the right side NEUROLOGICAL: Gross neurological examination did not reveal any focal deficits. SKIN: No rashes. Assessment and plan -Congestive heart failure chronic diastolic function with acute exacerbation patient, continue with IV Lasix, input and output monitoring and electrolyte mo nitoring. -End-stage disease on hemodialysis will be resumed on hemodialysis with nephrology consultation -Hyperkalemia secondary to kidney failure -COPD without any significant exacerbation will not need any systemic steroids -Coronary artery disease -Hyperlipidemia -Hypertension -Sleep apnea -Peripheral artery disease with amputations as mentioned above in the past below-knee on the left side and a third fourth and fifth toe amputation on the right side -Type 2 diabetes mellitus for above-mentioned chronic medical problems patient will be resumed on appropriate home medications DVT prophylaxis: Subcutaneous heparin Past Medical History Past Medical History: Coronary Artery Disease (CAD), Heart Failure, COPD, Diabetes Mellitus, Eye Disorder, GERD/Reflux, Hyperlipidemia, Hypertension, Myocardial Infarction ([place]), Renal Disease, Respiratory Disorder, Sleep Apnea/CPAP/BIPAP, Vascular Disorder Additional Past Medical History / Comment(s): Poor circulation in hands and legs/feet. 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 partial amp lt foot but had non healing wound which resulted in lt bka. matilde cataracts removed-has lens implants. x3 rt inguinal hernia sx and an umb hernia repair. BELOW KNEE AMPUTATION , COLONOSCOPY Past Anesthesia/Blood Transfusion Reactions: No Reported Reaction Additional Past Anesthesia/Blood Transfusion Reaction / Comment(s): States he was in the ICU after his surgery on his toes, but does not know why. Date of Last Stent Placement:: 05/2015 APPROX Past Psychological History: Anxiety, Depression, Panic Disorder Smoking Status: Former smoker - Past Family History Father History Unknown: Yes Mother History Unknown: Yes Family Medical History: Cancer, Coronary Artery Disease (CAD) Additional Family Medical History / Comment(s): benign Brain tumor, [place] syndrome Sister(s) Family Medical History: No Reported History Medications and Allergies Home Medications Medication Instructions Recorded Confirmed Type Tamsulosin [Flomax] 0.4 mg PO DAILY 04/14/18 12/16/23 History Albuterol Inhaler [Ventolin Hfa 1 - 2 puff INHALATION RT-Q6H PRN 03/09/19 12/16/23 History Inhaler] Atorvastatin [Lipitor] 80 mg PO HS #90 tab 06/23/19 12/16/23 Rx Clopidogrel [Plavix] 75 mg PO DAILY #90 tab 06/23/19 12/16/23 Rx hydrALAZINE HCL [Apresoline] 25 mg PO TID 02/23/22 12/16/23 History metOLazone [Zaroxolyn] 5 mg PO DAILY 02/23/22 12/16/23 History Fluticasone/Umeclidin/Vilanter 1 puff INHALATION RT-DAILY 02/24/22 12/16/23 History [Trelegy Ellipta 100-62.5-25] Isosorbide Mononitrate ER [Imdur] 60 mg PO DAILY 03/11/22 12/16/23 History Pantoprazole [Protonix] 40 mg PO BID 03/11/22 12/16/23 History oxyCODONE-APAP 10-325MG [Percocet 1 tab PO Q6H 03/11/22 12/17/23 History 10-325 mg] FLUoxetine HCL [PROzac] 40 mg PO BID 09/11/23 12/16/23 History Gabapentin [Neurontin] 400 mg PO HS 09/11/23 12/16/23 History Insulin NPH/Reg Insulin 70/30 See Protocol SQ AC-TID 09/11/23 12/16/23 History [humuLIN 70/30 VIAL] Metoprolol Succinate [Toprol XL] 50 mg PO DAILY 09/11/23 12/16/23 History amLODIPine [Norvasc] 5 mg PO BID #60 tab 09/12/23 12/16/23 Rx Aspirin EC [Ecotrin Low Dose] 81 mg PO HS 12/16/23 12/16/23 History Dulaglutide [Trulicity] 0.75 mg SQ TU 12/16/23 12/16/23 History Lactulose 20 gm PO DIRECTED 12/16/23 12/16/23 History Loratadine 10 mg PO HS 12/16/23 12/16/23 History Nitroglycerin Sl Tabs [Nitrostat] 0.4 mg SL Q5M PRN 12/16/23 12/16/23 History Oxymetazoline HCl [Vicks Sinex] 1 spray EA NOSTRIL DAILY PRN 12/16/23 12/16/23 History Torsemide [Demadex] 20 mg PO BID@0900,1600 12/16/23 12/16/23 History allopurinoL [Zyloprim] 100 mg PO DAILY 12/16/23 12/16/23 History Allergies Allergy/AdvReac Type Severity Reaction Status Date / Time codeine AdvReac headache, Verified 09/11/23 12:03 DIZZY, N/V hydrocodone [From Vicodin] AdvReac Nausea & Verified 09/11/23 12:03 Vomiting tramadol AdvReac Nausea & Verified 09/11/23 12:03 Vomiting Physical Exam Vitals: Vital Signs Temp Pulse Resp BP Pulse Ox FiO2 12/17/23 12:05 81 18 12/17/23 11:52 80 18 12/17/23 10:00 83 18 173/94 95 12/17/23 09:16 81 18 12/17/23 09:06 82 18 95 50 12/17/23 08:00 84 18 169/88 93 L 12/17/23 06:05 97.8 F 79 19 169/88 95 12/17/23 06:00 80 164/98 94 L 12/17/23 04:00 139/73 94 L 12/17/23 03:26 79 18 139/73 95 12/17/23 03:13 97 12/17/23 02:00 81 19 152/78 95 12/17/23 01:38 97.6 F 79 14 152/78 96 12/17/23 00:00 78 13 168/99 95 12/16/23 23:29 50 12/16/23 22:00 82 18 167/99 97 12/16/23 21:30 82 20 167/99 12/16/23 20:00 80 11 L 167/87 100 12/16/23 19:40 167/87 12/16/23 19:22 60 12/16/23 19:09 77 165/89 89 L 12/16/23 18:50 80 27 H 163/94 91 L 12/16/23 18:01 82 12/16/23 17:52 80 12/16/23 17:19 83 167/88 93 L 12/16/23 17:13 97.6 F 90 26 H 81 L Intake and Output 12/16/23 12/17/23 12/17/23 22:59 06:59 14:59 Other: Weight 127.006 kg Results CBC & Chem 7: 12/16/23 17:33 12/16/23 17:33 Labs: Abnormal Lab Results - Last 24 Hours (Table) 12/16/23 12/16/23 12/17/23 Range/Units 17:33 17:33 06:00 RBC 3.61 L (4.30-5.90) m/uL Hgb 10.5 L (13.0-17.5) gm/dL Hct 33.2 L (39.0-53.0) % Potassium 5.4 H (3.5-5.1) mmol/L BUN 53 H (9-20) mg/dL Creatinine 2.64 H (0.66-1.25) mg/dL Glucose 206 H (74-99) mg/dL POC Glucose (mg/dL) 334 H (70-110) mg/dL Alkaline Phosphatase 184 H (38-126) U/L Albumin 3.4 L (3.5-5.0) g/dL 12/17/23 Range/Units 12:06 RBC (4.30-5.90) m/uL Hgb (13.0-17.5) gm/dL Hct (39.0-53.0) % Potassium (3.5-5.1) mmol/L BUN (9-20) mg/dL Creatinine (0.66-1.25) mg/dL Glucose (74-99) mg/dL POC Glucose (mg/dL) 493 H (70-110) mg/dL Alkaline Phosphatase (38-126) U/L Albumin (3.5-5.0) g/dL
[2023-12-17] MEDS: INSULN ASP PRT/INSULIN ASPART 100 UNIT/ML 10 ML VIAL SQ SCH (12:48)
[2023-12-17] MEDS: FUROSEMIDE 10 MG/ML 10 ML VIAL IV SCH (13:56)
[2023-12-17] MEDS: METOPROLOL SUCCINATE (ER) 50 MG TAB.ER.24H PO STA (14:44)
[2023-12-17] MEDS: hydrALAZINE HCL 50 MG TAB PO SCH (14:44)
[2023-12-17] MEDS ORDERED: hydrALAZINE HCL 50 MG TAB PO SCH (16:00)
[2023-12-17] MEDS: HEPARIN SODIUM,PORCINE 5,000 UNIT/ML 1 ML VIAL SQ SCH (17:23)
[2023-12-17 17:27] LABS: Glucose,Whole Blood 510 mg/dL (70-110)
--- NOTE | 2023-12-17 18:27 | P.CRDCN ---
History of Present Illness Consult date: 12/17/23 History of present illness: HISTORY OF PRESENTING ILLNESS 89-year-old presents to the hospital because of symptoms of shortness of breath at rest along with orthopnea and proximal nocturnal dyspnea. Patient is a end- stage renal disease requiring peritoneal dialysis. He reports that he has been compliant to his medication. He takes torsemide 20 mg twice daily and me tolazone 5 mg at home. On admission his BNP was 5000., normal troponins BP 174/96, heart rate 82 bpm, ECG shows sinus rhythm with nonspecific IVCD Chest x-ray shows bilateral pulm congestion with small right pleural effusion. REVIEW OF SYSTEMS 14 point review of system is negative except what is mentioned above in HPI. PHYSICAL EXAMINATION Vital signs reviewed. Head: Normocephalic. Eyes: Sclerae nonicteric. Neck: Brisk carotid upstroke, no jugular venous distention. Lungs: Clear to auscultation. Heart: Regular rate and rhythm, S1-S2, no S3, no murmur or rub. Abdomen: Soft nontender, positive bowel sounds. Extremities: No edema, intact distal pulses. Neuro: Alert, oritented, no focal deficits. Detailed neuro exam was not performed. ASSESSMENT Acute HFrEF exacerbation Poorly controlled hypertension ESRD on peritoneal dialysis Hyperkalemia Prior history of COPD Prior history of CAD s/p PCI Hyperlipidemia Type 2 diabetes PAD s/p left BKA, and right third fourth fifth toe amputation PLAN Continue aspirin 81 mg, amlodipine 5 mg twice daily, atorvastatin 40 mg daily. Increase metoprolol to 100 mg daily. Metolazone 5 mg daily, Lasix 60 mg IV twice daily Imdur 60 mg. Hydralazine 50 mg 4 times a day Patient started on clonidine 0.1 mg 3 times daily. Would recommend to discontin ue this and instead go up on his hydralazine and metoprolol. Byron Woods MD, FACC, RPVI Thank you for allowing [facility] to participate in this patient's care. Feel free to reach out in case of any followup questions. Past Medical History Past Medical History: Coronary Artery Disease (CAD), Heart Failure, COPD, Diabetes Mellitus, Eye Disorder, GERD/Reflux, Hyperlipidemia, Hypertension, Myocardial Infarction ([place]), Renal Disease, Respiratory Disorder, Sleep Apnea/CPAP/BIPAP, Vascular Disorder Additional Past Medical History / Comment(s): Poor circulation in hands and legs/feet. 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 partial amp lt foot but had non healing wound which resulted in lt bka. matilde cataracts removed-has lens implants. x3 rt inguinal hernia sx and an umb hernia repair. BELOW KNEE AMPUTATION , COLONOSCOPY Past Anesthesia/Blood Transfusion Reactions: No Reported Reaction Additional Past Anesthesia/Blood Transfusion Reaction / Comment(s): States he was in the ICU after his surgery on his toes, but does not know why. Date of Last Stent Placement:: 05/2015 APPROX Past Psychological History: Anxiety, Depression, Panic Disorder Smoking Status: Former smoker - Past Family History Father History Unknown: Yes Mother History Unknown: Yes Family Medical History: Cancer, Coronary Artery Disease (CAD) Additional Family Medical History / Comment(s): benign Brain tumor, Berhane syndrome Sister(s) Family Medical History: No Reported History Medications and Allergies Home Medications Medication Instructions Recorded Confirmed Type Tamsulosin [Flomax] 0.4 mg PO DAILY 04/14/18 12/16/23 History Albuterol Inhaler [Ventolin Hfa 1 - 2 puff INHALATION RT-Q6H PRN 03/09/19 12/16/23 History Inhaler] Atorvastatin [Lipitor] 80 mg PO HS #90 tab 06/23/19 12/16/23 Rx Clopidogrel [Plavix] 75 mg PO DAILY #90 tab 06/23/19 12/16/23 Rx hydrALAZINE HCL [Apresoline] 25 mg PO TID 02/23/22 12/16/23 History metOLazone [Zaroxolyn] 5 mg PO DAILY 02/23/22 12/16/23 History Fluticasone/Umeclidin/Vilanter 1 puff INHALATION RT-DAILY 02/24/22 12/16/23 History [Trelegy Ellipta 100-62.5-25] Isosorbide Mononitrate ER [Imdur] 60 mg PO DAILY 03/11/22 12/16/23 History Pantoprazole [Protonix] 40 mg PO BID 03/11/22 12/16/23 History oxyCODONE-APAP 10-325MG [Percocet 1 tab PO Q6H 03/11/22 12/17/23 History 10-325 mg] FLUoxetine HCL [PROzac] 40 mg PO BID 09/11/23 12/16/23 History Gabapentin [Neurontin] 400 mg PO HS 09/11/23 12/16/23 History Insulin NPH/Reg Insulin 70/30 See Protocol SQ AC-TID 09/11/23 12/16/23 History [humuLIN 70/30 VIAL] Metoprolol Succinate [Toprol XL] 50 mg PO DAILY 09/11/23 12/16/23 History amLODIPine [Norvasc] 5 mg PO BID #60 tab 09/12/23 12/16/23 Rx Aspirin EC [Ecotrin Low Dose] 81 mg PO HS 12/16/23 12/16/23 History Dulaglutide [Trulicity] 0.75 mg SQ TU 12/16/23 12/16/23 History Lactulose 20 gm PO DIRECTED 12/16/23 12/16/23 History Loratadine 10 mg PO HS 12/16/23 12/16/23 History Nitroglycerin Sl Tabs [Nitrostat] 0.4 mg SL Q5M PRN 12/16/23 12/16/23 History Oxymetazoline HCl [Vicks Sinex] 1 spray EA NOSTRIL DAILY PRN 12/16/23 12/16/23 History Torsemide [Demadex] 20 mg PO BID@0900,1600 12/16/23 12/16/23 History allopurinoL [Zyloprim] 100 mg PO DAILY 12/16/23 12/16/23 History Allergies Allergy/AdvReac Type Severity Reaction Status Date / Time codeine AdvReac headache, Verified 09/11/23 12:03 DIZZY, N/V hydrocodone [From Vicodin] AdvReac Nausea & Verified 09/11/23 12:03 Vomiting tramadol AdvReac Nausea & Verified 09/11/23 12:03 Vomiting Physical Exam Vitals: Vital Signs Temp Pulse Resp BP Pulse Ox FiO2 12/17/23 15:50 50 12/17/23 15:49 82 18 12/17/23 15:39 77 18 12/17/23 13:00 100 18 174/96 96 12/17/23 12:05 81 18 12/17/23 11:52 80 18 12/17/23 10:00 83 18 173/94 95 12/17/23 09:16 81 18 12/17/23 09:06 82 18 95 50 12/17/23 08:00 84 18 169/88 93 L 12/17/23 06:05 97.8 F 79 19 169/88 95 12/17/23 06:00 80 164/98 94 L 12/17/23 04:00 139/73 94 L 12/17/23 03:26 79 18 139/73 95 12/17/23 03:13 97 12/17/23 02:00 81 19 152/78 95 12/17/23 01:38 97.6 F 79 14 152/78 96 12/17/23 00:00 78 13 168/99 95 12/16/23 23:29 50 12/16/23 22:00 82 18 167/99 97 12/16/23 21:30 82 20 167/99 12/16/23 20:00 80 11 L 167/87 100 12/16/23 19:40 167/87 12/16/23 19:22 60 12/16/23 19:09 77 165/89 89 L 12/16/23 18:50 80 27 H 163/94 91 L Results 12/16/23 17:33 12/16/23 17:33 Cardiac Enzymes 12/16/23 12/16/23 Range/Units 20:22 22:57 Troponin I <0.012 <0.012 (0.000-0.034) ng/mL Current Medications Generic Name Dose Route Start Last Admin Trade Name Freq PRN Reason Stop Dose Admin Albuterol/Ipratropium 3 ml 12/16/23 20:00 12/17/23 15:38 Ipratropium-Albuterol 3 Ml Neb INHALATION 3 ml RT-QID ARLET Administration Albuterol/Ipratropium 3 ml 12/16/23 19:20 Ipratropium-Albuterol 3 Ml Neb INHALATION RT-Q2H PRN Shortness Of Breath Or Wheezing Allopurinol 100 mg 12/18/23 09:00 Allopurinol 100 Mg Tab PO DAILY ARLET Amlodipine Besylate 5 mg 12/17/23 09:00 12/17/23 08:22 Amlodipine 5 Mg Tab PO 5 mg BID ARLET Administration Aspirin 81 mg 12/17/23 21:00 Aspirin 81 Mg PO HS ARLET Atorvastatin Calcium 40 mg 12/17/23 21:00 Atorvastatin 40 Mg Tab PO HS ARLET Budesonide/Formoterol Fumarate 2 puff 12/17/23 08:00 12/17/23 09:05 Symbicort 80-4.5 Mcg Inhaler INHALATION 2 puff RT-BID ARLET Administration Dextrose/Water 25 ml 12/17/23 09:53 Dextrose 50% Syringe 50 Ml IVP PER PROTOCOL PRN Hypoglycemia Protocol Dextrose/Water 50 ml 12/17/23 09:53 Dextrose 50% Syringe 50 Ml IVP PER PROTOCOL PRN Hypoglycemia Protocol Fluoxetine HCl 40 mg 12/17/23 09:00 12/17/23 08:22 Fluoxetine Hcl 20 Mg Cap PO 40 mg BID ARLET Administration Furosemide 60 mg 12/17/23 13:30 12/17/23 13:56 Furosemide 10 Mg/Ml 10 Ml Vial IV 60 mg Q12H ARLET Administration Gabapentin 400 mg 12/17/23 21:00 Gabapentin 400 Mg Cap PO HS ARLET Heparin Sodium (Porcine) 5,000 unit 12/17/23 16:00 12/17/23 17:23 Heparin Sodium,Porcine 5,000 Unit/Ml 1 Ml Vial SQ Not Given Q8HR ARLET Hydralazine HCl 50 mg 12/17/23 13:30 12/17/23 17:48 Hydralazine Hcl 50 Mg Tab PO 50 mg QID ARLET Administration Peritoneal Dialysis Solution 62.5 g in 2,500 mls @ 0 mls/hr 12/17/23 18:00 Delflex With 2.5% Dextrose (2,500 Ml) INTRAPERIT Q6HR [facility] Protocol As Directed Insulin Aspart 0 unit 12/17/23 12:30 12/17/23 17:52 Insulin Aspart (Novolog) 100 Unit/Ml Vial SQ Not Given ACHS [facility] Protocol Insulin Aspart 100 unit 12/17/23 12:30 12/17/23 17:47 Insuln Asp Prt/Insulin Aspart 100 Unit/Ml 10 Ml Vial SQ 100 unit AC-TID ARLET Administration Isosorbide Mononitrate 60 mg 12/17/23 09:00 12/17/23 08:22 Isosorbide Mononitrate Er 60 Mg Tab.Er.24h PO 60 mg DAILY ARLET Administration Loratadine 10 mg 12/17/23 21:00 Loratadine 10 Mg Tab PO HS [facility] Metolazone 5 mg 12/17/23 09:00 12/17/23 08:22 Metolazone 5 Mg Tab PO 5 mg DAILY ARLET Administration Metoprolol Succinate 100 mg 12/18/23 09:00 Metoprolol Succinate (Er) 100 Mg Tab.Er.24h PO DAILY [facility] Naloxone HCl 0.2 mg 12/16/23 19:20 Naloxone 0.4 Mg/Ml 1 Ml Vial IVP Q2M PRN Opioid Reversal Nitroglycerin 1 inch 12/17/23 22:00 Nitroglycerin Oint 1 Inch/Gm Packet TOPICAL QID [facility] Oxycodone/Acetaminophen 1 each 12/17/23 12:15 12/17/23 17:48 Oxycodone-Apap 10-325mg 1 Each Tab PO 1 each Q6HR ARLET Administration Pantoprazole Sodium 40 mg 12/17/23 07:30 12/17/23 16:41 Pantoprazole 40 Mg Tablet PO 40 mg AC-BID ARLET Administration Tamsulosin HCl 0.4 mg 12/17/23 09:00 12/17/23 08:22 Tamsulosin 0.4 Mg Cap.Er.24h PO 0.4 mg DAILY ARLET Administration 12/16/23 17:33 12/16/23 17:33
[2023-12-17] MEDS: DIALYSIS (PERIT 2.5%) 2,500 ML 62.5 G/2,500 ML BAG INTRAPERIT SCH (19:16)
--- NOTE | 2023-12-17 19:46 | P.NPCON ---
History of Present Illness - Reason for Consult Consult date: 12/17/23 - Chief Complaint Shortness of Breath - History of Present Illness 58-year-old male came with complaints of shortness of breath orthopnea, patient has pulm edema patient is peritoneal dialysis patient with chronic kidney disease, end-stage renal disease. Patient states he is compliant with his medi cations and his diet patient was on torsemide 20 mg twice a day along with metolazone 5 mg on daily basis at home. Patient was started on IV Lasix for 40 mg every 8 hourly with good urine output. He does not have any fever chills chest x-ray did not show any pneumonia did show pulm edema patient's BNP is around 5000 Vital signs are stable. General: No acute distress. HEENT: Head exam is unremarkable. LUNGS: No audible rhonchi or wheezes. HEART: Rate and Rhythm are regular. ABDOMEN: Obese, nontender. EXTREMITITES: Left BKA noted. Review of Systems Constitutional: Reports as per HPI Past Medical History Past Medical History: Coronary Artery Disease (CAD), Heart Failure, COPD, Diabetes Mellitus, Eye Disorder, GERD/Reflux, Hyperlipidemia, Hypertension, Myocardial Infarction ([place]), Renal Disease, Respiratory Disorder, Sleep Apnea/CPAP/BIPAP, Vascular Disorder Additional Past Medical History / Comment(s): Poor circulation in hands and legs/feet. 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 partial amp lt foot but had non healing wound which resulted in lt bka. matilde cataracts removed-has lens implants. x3 rt inguinal hernia sx and an umb hernia repair. BELOW KNEE AMPUTATION , COLONOSCOPY Past Anesthesia/Blood Transfusion Reactions: No Reported Reaction Additional Past Anesthesia/Blood Transfusion Reaction / Comment(s): States he was in the ICU after his surgery on his toes, but does not know why. Date of Last Stent Placement:: 05/2015 APPROX Past Psychological History: Anxiety, Depression, Panic Disorder Smoking Status: Former smoker - Past Family History Father History Unknown: Yes Mother History Unknown: Yes Family Medical History: Cancer, Coronary Artery Disease (CAD) Additional Family Medical History / Comment(s): benign Brain tumor, Kent syndrome Sister(s) Family Medical History: No Reported History Medications and Allergies Home Medications Medication Instructions Recorded Confirmed Type Tamsulosin [Flomax] 0.4 mg PO DAILY 04/14/18 12/16/23 History Albuterol Inhaler [Ventolin Hfa 1 - 2 puff INHALATION RT-Q6H PRN 03/09/19 12/16/23 History Inhaler] Atorvastatin [Lipitor] 80 mg PO HS #90 tab 06/23/19 12/16/23 Rx Clopidogrel [Plavix] 75 mg PO DAILY #90 tab 06/23/19 12/16/23 Rx hydrALAZINE HCL [Apresoline] 25 mg PO TID 02/23/22 12/16/23 History metOLazone [Zaroxolyn] 5 mg PO DAILY 02/23/22 12/16/23 History Fluticasone/Umeclidin/Vilanter 1 puff INHALATION RT-DAILY 02/24/22 12/16/23 History [Trelebreanne Ellipta 100-62.5-25] Isosorbide Mononitrate ER [Imdur] 60 mg PO DAILY 03/11/22 12/16/23 History Pantoprazole [Protonix] 40 mg PO BID 03/11/22 12/16/23 History oxyCODONE-APAP 10-325MG [Percocet 1 tab PO Q6H 03/11/22 12/17/23 History 10-325 mg] FLUoxetine HCL [PROzac] 40 mg PO BID 09/11/23 12/16/23 History Gabapentin [Neurontin] 400 mg PO HS 09/11/23 12/16/23 History Insulin NPH/Reg Insulin 70/30 See Protocol SQ AC-TID 09/11/23 12/16/23 History [humuLIN 70/30 VIAL] Metoprolol Succinate [Toprol XL] 50 mg PO DAILY 09/11/23 12/16/23 History amLODIPine [Norvasc] 5 mg PO BID #60 tab 09/12/23 12/16/23 Rx Aspirin EC [Ecotrin Low Dose] 81 mg PO HS 12/16/23 12/16/23 History Dulaglutide [Trulicity] 0.75 mg SQ TU 12/16/23 12/16/23 History Lactulose 20 gm PO DIRECTED 12/16/23 12/16/23 History Loratadine 10 mg PO HS 12/16/23 12/16/23 History Nitroglycerin Sl Tabs [Nitrostat] 0.4 mg SL Q5M PRN 12/16/23 12/16/23 History Oxymetazoline HCl [Vicks Sinex] 1 spray EA NOSTRIL DAILY PRN 12/16/23 12/16/23 History Torsemide [Demadex] 20 mg PO BID@0900,1600 12/16/23 12/16/23 History allopurinoL [Zyloprim] 100 mg PO DAILY 12/16/23 12/16/23 History Allergies Allergy/AdvReac Type Severity Reaction Status Date / Time codeine AdvReac headache, Verified 09/11/23 12:03 DIZZY, N/V hydrocodone [From Vicodin] AdvReac Nausea & Verified 09/11/23 12:03 Vomiting tramadol AdvReac Nausea & Verified 09/11/23 12:03 Vomiting Physical Exam Vitals: Vital Signs Temp Pulse Resp BP Pulse Ox FiO2 12/17/23 12:05 81 18 12/17/23 11:52 80 18 12/17/23 10:00 83 18 173/94 95 12/17/23 09:16 81 18 12/17/23 09:06 82 18 95 50 12/17/23 08:00 84 18 169/88 93 L 12/17/23 06:05 97.8 F 79 19 169/88 95 12/17/23 06:00 80 164/98 94 L 12/17/23 04:00 139/73 94 L 12/17/23 03:26 79 18 139/73 95 12/17/23 03:13 97 12/17/23 02:00 81 19 152/78 95 12/17/23 01:38 97.6 F 79 14 152/78 96 12/17/23 00:00 78 13 168/99 95 12/16/23 23:29 50 12/16/23 22:00 82 18 167/99 97 12/16/23 21:30 82 20 167/99 12/16/23 20:00 80 11 L 167/87 100 12/16/23 19:40 167/87 12/16/23 19:22 60 12/16/23 19:09 77 165/89 89 L 12/16/23 18:50 80 27 H 163/94 91 L 12/16/23 18:01 82 12/16/23 17:52 80 12/16/23 17:19 83 167/88 93 L 12/16/23 17:13 97.6 F 90 26 H 81 L Intake and Output 12/16/23 12/17/23 12/17/23 22:59 06:59 14:59 Other: Weight 127.006 kg Results - Lab Results Most recent lab results Calcium 8.7 mg/dL (8.4-10.2) 12/16/23 17:33 Magnesium 2.2 mg/dL (1.6-2.3) 12/16/23 17:33 12/16/23 17:33 12/16/23 17:33 Assessment and Plan Assessment: 1. End-stage renal disease maintained on peritoneal dialysis. 2. Hypertension with chronic kidney disease. 3. Acute hypoxic respiratory failure secondary to volume overload due to noncompliance with fluid restriction. 4. Coronary disease with cardiac stent. 5. Diabetes mellitus. 6. Chronic kidney disease mineral bone disease. Plan: Maintain current PD exchanges - 2.5 L every 6 hours with 2.5% dextrose solution. Low-salt diet and 1500 cc fluid restriction. Maintain IV Lasix. Stressed compliance with fludi restriction.
--- NOTE | 2023-12-17 19:57 | P.CNPUL ---
History of Present Illness Consult date: 12/17/23 Reason for consult: dyspnea, COPD History of present illness: This is a 58-year-old male patient who is very well-known to me. The patient is morbidly obese with a body mass index of 60. The patient has obstructive sleep apnea maintained on BiPAP on outpatient basis. His baseline AHI 78.3 and the patient has been maintained on treatment. He also has advanced COPD, end-stage renal disease and he undergoes peritoneal dialysis at home. He has peripheral vascular disease and previous BKA of the left lower extremity, coronary disease, diabetes mellitus type 2, hypertension hyperlipidemia and previous history of smoking. The patient came into the hospital because of progressive worsening shortness of breath. He was undergoing peritoneal dialysis without any significant improvement in his respiratory status. Based on that, the patient ended up coming into the emergency department for further evaluation. Initial chest x-ray was consistent with cardiomegaly and pulm vascular congestion and small effusions consistent with CHF and fluid overload. Note that his last echocardiogram that was done back in 2019 showed a preserved LV function and the patient was found to have an ejection fraction of 50 to 55% back then. Rest of the blood work shows a WBC count of 8.8 with a hemoglobin 10.5 and a platelet count of 235. Normal coagulation profile. BUN is 53 with a creatinine of 2.6. Electrolytes are stable with a potassium level of 5.4. Liver function tests are essentially within normal limits. proBNP level is 5416 and troponin is less than 0.01. The patient has no altered mentation. No chest pain. He did not utilize BiPAP overnight to the emergency department and the patient is currently off the BiPAP maintained on oxygen by nasal cannula at 3 L. The patient was also started on diuretics. The patient was started on IV Lasix and is currently receiving 60 mg every 12 hours and the patient is producing excellent amount of urine output in combination with Zaroxolyn. He seems to be in negative fluid balance. Awaiting nephrology consultation. No other significant events otherwise for now. He is free of any chest pain. No altered mentation. His EKG showed normal sinus rhythm along with old Q waves involving the anteroseptal leads. Review of Systems Constitutional: Reports fatigue, Reports weakness Eyes: denies as per HPI, denies blurred vision, denies bulging eye, denies decreased vision, denies diplopia, denies discharge, denies dry eye, denies irritation, denies itching, denies pain, denies photophobia, denies loss of peripheral vision, denies loss of vision, denies tunnel vision/blind spots Ears: deny: decreased hearing, ear discharge, earache, tinnitus Ears, nose, mouth and throat: Reports as per HPI Breasts: absent: as per HPI, gynecomastia Cardiovascular: Reports claudication, Reports decreased exercise tolerance, Reports dyspnea on exertion, Reports irregular heart beat Respiratory: Reports cough, Reports dyspnea, Reports home oxygen, Reports sleep apnea, Reports wheezing Gastrointestinal: Reports as per HPI Genitourinary: Reports as per HPI Musculoskeletal: Reports as per HPI Musculoskeletal: right: ankle swelling, absent: ankle pain, ankle stiffness Integumentary: Reports as per HPI Neurological: Reports as per HPI Psychiatric: Reports as per HPI Endocrine: Reports as per HPI Hematologic/Lymphatic: Reports as per HPI Past Medical History Past Medical History: Coronary Artery Disease (CAD), Heart Failure, COPD, Diabe andi Mellitus, Eye Disorder, GERD/Reflux, Hyperlipidemia, Hypertension, Myocardial Infarction ([place]), Renal Disease, Respiratory Disorder, Sleep Apnea/CPAP/BIPAP, Vascular Disorder Additional Past Medical History / Comment(s): Poor circulation in hands and legs/feet. 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 partial amp lt foot but had non healing wound which resulted in lt bka. matilde cataracts removed-has lens implants. x3 rt inguinal hernia sx and an umb hernia repair. BELOW KNEE AMPUTATION , COLONOSCOPY Past Anesthesia/Blood Transfusion Reactions: No Reported Reaction Additional Past Anesthesia/Blood Transfusion Reaction / Comment(s): States he was in the ICU after his surgery on his toes, but does not know why. Date of Last Stent Placement:: 05/2015 APPROX Past Psychological History: Anxiety, Depression, Panic Disorder Smoking Status: Former smoker - Past Family History Father History Unknown: Yes Mother History Unknown: Yes Family Medical History: Cancer, Coronary Artery Disease (CAD) Additional Family Medical History / Comment(s): benign Brain tumor, Berhane syndrome Sister(s) Family Medical History: No Reported History Medications and Allergies Home Medications Medication Instructions Recorded Confirmed Type Tamsulosin [Flomax] 0.4 mg PO DAILY 04/14/18 12/16/23 History Albuterol Inhaler [Ventolin Hfa 1 - 2 puff INHALATION RT-Q6H PRN 03/09/19 12/16/23 History Inhaler] Atorvastatin [Lipitor] 80 mg PO HS #90 tab 06/23/19 12/16/23 Rx Clopidogrel [Plavix] 75 mg PO DAILY #90 tab 06/23/19 12/16/23 Rx hydrALAZINE HCL [Apresoline] 25 mg PO TID 02/23/22 12/16/23 History metOLazone [Zaroxolyn] 5 mg PO DAILY 02/23/22 12/16/23 History Fluticasone/Umeclidin/Vilanter 1 puff INHALATION RT-DAILY 02/24/22 12/16/23 History [Igor Ellipta 100-62.5-25] Isosorbide Mononitrate ER [Imdur] 60 mg PO DAILY 03/11/22 12/16/23 History Pantoprazole [Protonix] 40 mg PO BID 03/11/22 12/16/23 History oxyCODONE-APAP 10-325MG [Percocet 1 tab PO Q6H 03/11/22 12/17/23 History 10-325 mg] FLUoxetine HCL [PROzac] 40 mg PO BID 09/11/23 12/16/23 History Gabapentin [Neurontin] 400 mg PO HS 09/11/23 12/16/23 History Insulin NPH/Reg Insulin 70/30 See Protocol SQ AC-TID 09/11/23 12/16/23 History [humuLIN 70/30 VIAL] Metoprolol Succinate [Toprol XL] 50 mg PO DAILY 09/11/23 12/16/23 History amLODIPine [Norvasc] 5 mg PO BID #60 tab 09/12/23 12/16/23 Rx Aspirin EC [Ecotrin Low Dose] 81 mg PO HS 12/16/23 12/16/23 History Dulaglutide [Trulicity] 0.75 mg SQ TU 12/16/23 12/16/23 History Lactulose 20 gm PO DIRECTED 12/16/23 12/16/23 History Loratadine 10 mg PO HS 12/16/23 12/16/23 History Nitroglycerin Sl Tabs [Nitrostat] 0.4 mg SL Q5M PRN 12/16/23 12/16/23 History Oxymetazoline HCl [Vicks Sinex] 1 spray EA NOSTRIL DAILY PRN 12/16/23 12/16/23 History Torsemide [Demadex] 20 mg PO BID@0900,1600 12/16/23 12/16/23 History allopurinoL [Zyloprim] 100 mg PO DAILY 12/16/23 12/16/23 History Allergies Allergy/AdvReac Type Severity Reaction Status Date / Time codeine AdvReac headache, Verified 09/11/23 12:03 DIZZY, N/V hydrocodone [From Vicodin] AdvReac Nausea & Verified 09/11/23 12:03 Vomiting tramadol AdvReac Nausea & Verified 09/11/23 12:03 Vomiting Physical Exam Vitals: Vital Signs Temp Pulse Resp BP Pulse Ox FiO2 12/17/23 09:16 81 18 12/17/23 09:06 82 18 95 50 12/17/23 06:05 97.8 F 79 19 169/88 95 12/17/23 03:26 79 18 139/73 95 12/17/23 03:13 97 12/17/23 01:38 97.6 F 79 14 152/78 96 12/17/23 00:00 78 13 158/93 95 12/16/23 23:29 50 12/16/23 21:30 82 20 167/99 12/16/23 19:40 167/87 12/16/23 19:22 60 12/16/23 19:09 77 165/89 89 L 12/16/23 18:01 82 12/16/23 17:52 80 12/16/23 17:19 83 167/88 93 L 12/16/23 17:13 97.6 F 90 26 H 81 L Intake and Output 0612/17/23 12/17/23 22:59 06:59 14:59 Other: Weight 127.006 kg General appearance the patient is morbidly obese, in mild acute respiratory distress currently on 3 L of oxygen by nasal cannula. Able to converse and speak in full sentences. Head exam was generally normal. There was no scleral icterus or corneal arcus. Mucous membranes were moist. Neck was supple and without jugular venous distension, thyromegaly, or carotid bruits. Carotids were easily palpable bilaterally. There was no adenopathy. Lung sounds are diminished bilaterally and the patient has crackles in the lung bases Cardiac exam revealed the PMI to be normally situated and sized. The rhythm was regular and no extrasystoles were noted during several minutes of auscultation. The first and second heart sounds were normal and physiologic splitting of the second heart sound was noted. There were no murmurs, rubs, clicks, or gallops. Overall heart sounds are distant. Abdomen is obese, soft and nontender. No organomegaly. No direct tenderness or rebound/guarding. The patient has a peritoneal dialysis catheter in place. Extremities reveal an amputation of the left lower extremity, trace edema of the right lower extremity, diminished pulses, no cyanosis or clubbing. Examination of the skin revealed no evidence of significant rashes, suspicious appearing nevi or other concerning lesions. Neurologically, the patient is awake and alert and the patient does not have any focal neurological deficit. Cranial nerves are essentially intact. Results - Laboratory Findings CBC and BMP: 12/16/23 17:33 12/16/23 17:33 PT/INR, D-dimer PT 10.8 sec (10.0-12.5) 12/16/23 17:33 INR 1.0 (<1.2) 12/16/23 17:33 Abnormal lab findings: Abnormal Labs 12/16/23 12/16/23 12/17/23 17:33 17:33 06:00 RBC 3.61 L Hgb 10.5 L Hct 33.2 L Potassium 5.4 H BUN 53 H Creatinine 2.64 H Glucose 206 H POC Glucose (mg/dL) 334 H Alkaline Phosphatase 184 H Albumin 3.4 L - Diagnostic Findings Chest x-ray: image reviewed Assessment and Plan Plan: Acute on chronic hypoxic respiratory failure essentially due to fluid overload. The patient has signs of CHF and fluid overload on chest x-ray along with elevated proBNP level and he did not respond well to outpatient peritoneal dialysis was undergoing. He is currently coming in today hospital for further workup. No signs of pneumonia. He is currently on IV Lasix and Zaroxolyn is producing excellent urine output. Supportive with BiPAP briefly in the emergency department Shortness of breath secondary to above End-stage renal disease currently undergoing peritoneal dialysis Morbid obesity Obstructive sleep apnea, severe with a AHI of 78 Advanced COPD Peripheral vascular disease with previous BKA on the left End-stage renal disease on hemodialysis Coronary artery disease Diabetes mellitus, with a component of steroid-induced hyperglycemia the patient was given IV Solu-Medrol in the emergency department. Hypertension, with an elevated blood pressure Hyperlipidemia Acid reflux History of smoking Plan Titrate oxygen flow to maintain saturation above 90% currently on 3 L and uti lize the BiPAP overnight Continue Lasix and Zaroxolyn combination Consult with nephrology to adjust peritoneal dialysis for better ultrafiltration and improving his fluid balance Monitor electrolytes Discontinued IV Solu-Medrol Restart insulin 70/30 100 units 3 times daily with meals along with a sign scale coverage General medicine for proper blood sugar control Resume home antihypertensive medication. Will add also clonidine for tighter blood pressure control. Nephrology consultation Obtain echocardiogram Will continue to follow
[2023-12-17] MEDS ORDERED: ATORVASTATIN 80 MG TAB PO SCH (21:00)
[2023-12-17] MEDS ORDERED: oxyCODONE-APAP 10-325MG 1 EACH TAB PO SCH (21:00)
[2023-12-17 22:25] LABS: Glucose,Whole Blood 212 mg/dL (70-110)
[2023-12-17] MEDS: LORATADINE 10 MG TAB PO SCH (22:44)
[2023-12-17] MEDS: ATORVASTATIN 40 MG TAB PO SCH (22:45)
[2023-12-17] MEDS: GABAPENTIN 400 MG CAP PO SCH (22:45)
[2023-12-17] MEDS: ASPIRIN 81 MG PO SCH (22:46)
[2023-12-17] MEDS: NITROGLYCERIN OINT 1 INCH/GM PACKET TOPICAL SCH (22:47)
[2023-12-18 06:07] LABS: Glucose,Whole Blood 59 mg/dL (70-110)
[2023-12-18 06:36] LABS: Glucose,Whole Blood 73 mg/dL (70-110)
[2023-12-18] MEDS: allopurinoL 100 MG TAB PO SCH (08:00)
[2023-12-18] MEDS: METOPROLOL SUCCINATE (ER) 100 MG TAB.ER.24H PO SCH (08:00)
[2023-12-18 10:44] LABS: African American GFR (CKD) 29 (>60 ml/min/1.73 sqM); Anion Gap 6 mmol/L; Blood Urea Nitrogen 66 mg/dL (9-20); Calcium 8.5 mg/dL (8.4-10.2); Carbon Dioxide 29 mmol/L (22-30); Chloride 100 mmol/L (98-107); Glucose 168 mg/dL (74-99); Non-African American GFR(CKD) 25 (>60 ml/min/1.73 sqM); Potassium 5.1 mmol/L (3.5-5.1); Sodium 135 mmol/L (137-145)
[2023-12-18 11:32] LABS: Glucose,Whole Blood 175 mg/dL (70-110)
--- NOTE | 2023-12-18 12:28 | P.PN ---
Subjective Progress Note Date: 12/18/23 Patient seen in follow up for peritoneal dialysis. Still with some wheezing but breathing improving. Watching fluid intake. Vital signs are stable. General: No acute distress. HEENT: Head exam is unremarkable. LUNGS: No audible rhonchi or wheezes. HEART: Rate and Rhythm are regular. ABDOMEN: Obese, nontender. + PD catheter EXTREMITITES: Left BKA noted. Objective - Vital Signs Vital signs: Vital Signs Temp 97.6 F 12/18/23 07:55 Pulse 70 12/18/23 08:09 Resp 18 12/18/23 07:55 BP 132/77 12/18/23 07:55 Pulse Ox 94 L 12/18/23 07:58 FiO2 45 12/18/23 03:26 Intake & Output 12/17/23 12/18/23 12/18/23 18:59 06:59 18:59 Intake Total 130 Output Total 300 Balance -300 130 Weight 122.7 kg Intake: IV 10 Invasive Line 1 10 Oral 120 Output: Urine 300 Other: Voiding Method Urinal Urinal - Labs CBC & Chem 7: 12/16/23 17:33 12/18/23 10:05 Labs: Abnormal Lab Results - Last 24 Hours (Table) 12/17/23 12/17/23 12/17/23 Range/Units 12:06 17:26 22:23 POC Glucose (mg/dL) 493 H 510 H* 212 H (70-110) mg/dL 12/18/23 Range/Units 06:07 POC Glucose (mg/dL) 59 L (70-110) mg/dL Microbiology - Last 24 Hours (Table) 12/16/23 17:52 Blood Culture - Preliminary Blood 12/16/23 17:33 Blood Culture - Preliminary Blood Assessment and Plan Assessment: 1. End-stage renal disease maintained on peritoneal dialysis. 2. Hypertension with chronic kidney disease. 3. Acute hypoxic respiratory failure secondary to volume overload due to noncompliance with fluid restriction. 4. Coronary disease with cardiac stent. 5. Diabetes mellitus. 6. Chronic kidney disease mineral bone disease. Plan: Maintain current PD exchanges - 2.5 L every 6 hours with 2.5% dextrose solution. Low-salt diet and 1500 cc fluid restriction. Maintain IV Lasix. Stressed compliance with fluid restriction.
--- NOTE | 2023-12-18 12:31 | P.PN ---
Subjective Progress Note Date: 12/18/23 This is a 58-year-old male patient who is very well-known to me. The patient is morbidly obese with a body mass index of 60. The patient has obstructive sleep apnea maintained on BiPAP on outpatient basis. His baseline AHI 78.3 and the patient has been maintained on treatment. He also has advanced COPD, end-stage renal disease and he undergoes peritoneal dialysis at home. He has peripheral vascular disease and previous BKA of the left lower extremity, coronary disease, diabetes mellitus type 2, hypertension hyperlipidemia and previous history of smoking. The patient came into the hospital because of progressive worsening shortness of breath. He was undergoing peritoneal dialysis without any significant improvement in his respiratory status. Based on that, the patient ended up coming into the emergency department for further evaluation. Initial chest x-ray was consistent with cardiomegaly and pulm vascular congestion and small effusions consistent with CHF and fluid overload. Note that his last echocardiogram that was done back in 2019 showed a preserved LV function and the patient was found to have an ejection fraction of 50 to 55% back then. Rest of the blood work shows a WBC count of 8.8 with a hemoglobin 10.5 and a platelet count of 235. Normal coagulation profile. BUN is 53 with a creatinine of 2.6. Electrolytes are stable with a potassium level of 5.4. Liver function tests are essentially within normal limits. proBNP level is 5416 and troponin is less than 0.01. The patient has no altered mentation. No chest pain. He did not utilize BiPAP overnight to the emergency department and the patient is currently off the BiPAP maintained on oxygen by nasal cannula at 3 L. The patient was also started on diuretics. The patient was started on IV Lasix and is currently receiving 60 mg every 12 hours and the patient is producing excellent amount of urine output in combination with Zaroxolyn. He seems to be in negative fluid balance. Awaiting nephrology consultation. No other significant events otherwise for now. He is free of any chest pain. No altered mentation. His EKG showed normal sinus rhythm along with old Q waves involving the anteroseptal leads. 12/18/2023, the patient is breathing much easier. He is currently on room air oxygen with a pulse ox of 92%. He was diuresed adequately. The patient was on a combination of Lasix 60 mg for 12 hours and the patient was also on Zaroxolyn. He is undergoing peritoneal dialysis. He utilized the BiPAP overnight at a pressure of 10 over 5 cm of water. Electrolytes from today show a potassium level of 5.1, BUN 66 with a creatinine of 2.7. Rest of the medications remain unchanged. BP is under better control. He is currently on metoprolol XL 100 mg p.o. daily, Norvasc 5 mg p.o. twice a day in addition to his diuretics. Hydralazine is also being administered a dose of 50 mg p.o. 4 times daily and Imdur 60 mg p.o. daily. He is undergoing PD with 2.5% dextrose solution every 6 hours. Echocardiogram was ordered. Objective - Vital Signs Vital signs: Vital Signs Temp 97.6 F 12/18/23 07:55 Pulse 70 12/18/23 08:09 Resp 18 12/18/23 07:55 BP 132/77 12/18/23 07:55 Pulse Ox 94 L 12/18/23 07:58 FiO2 45 12/18/23 03:26 Intake & Output 12/17/23 12/18/23 12/18/23 18:59 06:59 18:59 Intake Total 130 Output Total 300 Balance -300 130 Weight 122.7 kg Intake: IV 10 Invasive Line 1 10 Oral 120 Output: Urine 300 Other: Voiding Method Urinal Urinal - Exam General appearance the patient is morbidly obese, in mild acute respiratory distress currently on room air oxygen. Able to converse and speak in full sentences. Head exam was generally normal. There was no scleral icterus or corneal arcus. Mucous membranes were moist. Neck was supple and without jugular venous distension, thyromegaly, or carotid bruits. Carotids were easily palpable bilaterally. There was no adenopathy. Lung sounds are diminished bilaterally and the patient has crackles in the lung bases Cardiac exam revealed the PMI to be normally situated and sized. The rhythm was regular and no extrasystoles were noted during several minutes of auscultation. The first and second heart sounds were normal and physiologic splitting of the second heart sound was noted. There were no murmurs, rubs, clicks, or gallops. Overall heart sounds are distant. Abdomen is obese, soft and nontender. No organomegaly. No direct tenderness or rebound/guarding. The patient has a peritoneal dialysis catheter in place. Extremities reveal an amputation of the left lower extremity, trace edema of the right lower extremity, diminished pulses, no cyanosis or clubbing. Examination of the skin revealed no evidence of significant rashes, suspicious appearing nevi or other concerning lesions. Neurologically, the patient is awake and alert and the patient does not have any focal neurological deficit. Cranial nerves are essentially intact. - Labs CBC & Chem 7: 12/16/23 17:33 12/18/23 10:05 Labs: Abnormal Lab Results - Last 24 Hours (Table) 12/17/23 12/17/23 12/17/23 Range/Units 12:06 17:26 22:23 POC Glucose (mg/dL) 493 H 510 H* 212 H (70-110) mg/dL 12/18/23 Range/Units 06:07 POC Glucose (mg/dL) 59 L (70-110) mg/dL Microbiology - Last 24 Hours (Table) 12/16/23 17:52 Blood Culture - Preliminary Blood 12/16/23 17:33 Blood Culture - Preliminary Blood Assessment and Plan Plan: Acute on chronic hypoxic respiratory failure essentially due to fluid overload. The patient has signs of CHF and fluid overload on chest x-ray along with elevated proBNP level and he did not respond well to outpatient peritoneal dialysis was undergoing. He is currently coming in [facility] for further workup. No signs of pneumonia. He is currently on IV Lasix and Zaroxolyn is producing excellent urine output. Supportive with BiPAP briefly in the emergency department, and the patient is currently on room air oxygen. Clinically improved. Shortness of breath secondary to above, improved End-stage renal disease currently undergoing peritoneal dialysis, 2.5 dextrose solution 4 times a day Morbid obesity Obstructive sleep apnea, severe with a AHI of 78 Advanced COPD Peripheral vascular disease with previous BKA on the left End-stage renal disease on hemodialysis Coronary artery disease Diabetes mellitus, with a component of steroid-induced hyperglycemia the patient was given IV Solu-Medrol in the emergency department. Hypertension, with an elevated blood pressure Hyperlipidemia Acid reflux History of smoking Plan Titrate oxygen flow, currently on room air oxygen Continue Lasix and Zaroxolyn combination Consult with nephrology to adjust peritoneal dialysis for better ultrafiltration and improving his fluid balance, currently on 2.5% dextrose solution 4 times a day exchange Monitor electrolytes Blood sugars under better control Restart insulin 70/30 100 units 3 times daily with meals along with a sign scale coverage General medicine for proper blood sugar control Resume home antihypertensive medication. BP is under better control Nephrology consultation Obtain echocardiogram Will continue to follow
--- NOTE | 2023-12-18 13:39 | P.PN ---
Subjective Progress Note Date: 12/18/23 58-year-old male came with complaints of shortness of breath orthopnea, patient has pulm edema patient is peritoneal dialysis patient with chronic kidney disease, end-stage renal disease. Patient states he is compliant with his medications and his diet patient was on torsemide 20 mg twice a day along with metolazone 5 mg on daily basis at home. Patient was started on IV Lasix for 40 mg every 8 hourly with good urine output. He does not have any fever chills chest x-ray did not show any pneumonia did show pulm edema patient's BNP is around 5000 12/18/2023 Patient is evaluated in follow up today on the medical floor. Patient continues with scattered wheezing and is continued on scheduled updrafts as well as symbicort. Pulmonary following this. Continues on IV lasix does have improvement in his shortness of breath and is currently on room air. Maintained on peritoneal dialysis per nephrology. Sodium level 135 today, BUN 66, creatinine 2.70. Review of Systems Constitutional: Denied any fatigue denied any fever. Cardio vascular: denied any chest pain, palpitations Gastrointestinal: denied any nausea, vomiting, diarrhea Pulmonary: Denied any shortness of breath cough Neurologic denied any new focal deficits All inpatient medications were reviewed and appropriate changes in these medic ations as dictated in the interval history and assessment and plan. PHYSICAL EXAMINATION: GENERAL: The patient is alert and oriented x3, not in any acute distress. Well developed, well nourished. HEENT: Pupils are round and equally reacting to light. EOMI. No scleral icterus. No conjunctival pallor. Normocephalic, atraumatic. No pharyngeal erythema. No thyromegaly. CARDIOVASCULAR: S1 and S2 present. No murmurs, rubs, or gallops. PULMONARY: Faint scattered expiratory wheezing. ABDOMEN: Soft, nontender, nondistended, normoactive bowel sounds. No palpable organomegaly. MUSCULOSKELETAL: No joint swelling or deformity. EXTREMITIES: No cyanosis, clubbing, or pedal edema. Patient has an amputation on the left side as well as toe amputation on the right side NEUROLOGICAL: Gross neurological examination did not reveal any focal deficits. SKIN: No rashes. Assessment and plan -Congestive heart failure chronic diastolic function with acute exacerbation patient, continue with IV Lasix, input and output monitoring and electrolyte monitoring. -End-stage disease on peritoneal dialysis which is managed by nephrology. -Hyperkalemia secondary to kidney failure improved. -COPD without any significant exacerbation will not need any systemic steroids continues on updrafts scheduled and as needed, maintained on symbicort. -Coronary artery disease -Hyperlipidemia -Hypertension -Sleep apnea -Peripheral artery disease with amputations as mentioned above in the past below-knee on the left side and a third fourth and fifth toe amputation on the right side -Type 2 diabetes mellitus continue accuchecks ACHS and sliding scale insulin resumed on home dose 70/30 mix. DVT prophylaxis: Subcutaneous heparin The impression and plan of care has been dictated by Sabine Kearns, Nurse Practitioner as directed. Dr. Yfn MD I have performed a history and physical examination and medical decision making of this patient, discussed the same with the dictator, and agree with the di ctators assessment and plan as written, documented as a scribe. Based on total visit time, I have performed more than 50% of this visit. Objective - Vital Signs Vital signs: Vital Signs Temp 97.6 F 12/18/23 11:50 Pulse 78 12/18/23 11:50 Resp 18 12/18/23 11:50 BP 159/82 12/18/23 11:50 Pulse Ox 92 L 12/18/23 11:50 FiO2 45 12/18/23 03:26 Intake & Output 12/17/23 12/18/23 12/18/23 18:59 06:59 18:59 Intake Total 130 Output Total 300 450 Balance -300 -320 Weight 122.7 kg Intake: IV 10 Invasive Line 1 10 Oral 120 Output: Urine 300 450 Other: Voiding Method Urinal Urinal # Voids 1 - Labs CBC & Chem 7: 12/16/23 17:33 12/18/23 10:05 Labs: Abnormal Lab Results - Last 24 Hours (Table) 12/16/23 12/17/23 12/17/23 Range/Units 17:33 17:26 22:23 Sodium (137-145) mmol/L BUN (9-20) mg/dL Creatinine (0.66-1.25) mg/dL Glucose (74-99) mg/dL POC Glucose (mg/dL) 510 H* 212 H (70-110) mg/dL Hemoglobin A1c 8.8 H (<=6.0) % 12/18/23 12/18/23 12/18/23 Range/Units 06:07 10:05 11:30 Sodium 135 L (137-145) mmol/L BUN 66 H (9-20) mg/dL Creatinine 2.70 H (0.66-1.25) mg/dL Glucose 168 H (74-99) mg/dL POC Glucose (mg/dL) 59 L 175 H (70-110) mg/dL Hemoglobin A1c (<=6.0) % Microbiology - Last 24 Hours (Table) 12/16/23 17:52 Blood Culture - Preliminary Blood 12/16/23 17:33 Blood Culture - Preliminary Blood Assessment and Plan Time with Patient: Less than 30
[2023-12-18 16:35] LABS: Glucose,Whole Blood 303 mg/dL (70-110)
[2023-12-18] MEDS: hydrALAZINE HCL 50 MG TAB PO SCH (18:09)
[2023-12-18 20:02] LABS: Glucose,Whole Blood 302 mg/dL (70-110)
--- NOTE | 2023-12-18 20:12 | P.PN ---
Subjective Progress Note Date: 12/18/23 Progress note December 18, 2023 Patient reports that his urine output has improved on current regimen. His blo od pressure is better controlled. He denies any chest pain. He reports his shortness of breath is better. HISTORY OF PRESENTING ILLNESS 89-year-old presents to the hospital because of symptoms of shortness of breath at rest along with orthopnea and proximal nocturnal dyspnea. Patient is a end-s tage renal disease requiring peritoneal dialysis. He reports that he has been compliant to his medication. He takes torsemide 20 mg twice daily and metolazone 5 mg at home. On admission his BNP was 5000., normal troponins BP 174/96, heart rate 82 bpm, ECG shows sinus rhythm with nonspecific IVCD Chest x-ray shows bilateral pulm congestion with small right pleural effusion. REVIEW OF SYSTEMS 14 point review of system is negative except what is mentioned above in HPI. PHYSICAL EXAMINATION Vital signs reviewed. Head: Normocephalic. Eyes: Sclerae nonicteric. Neck: Brisk carotid upstroke, no jugular venous distention. Lungs: Mild crackles audible in bilateral lung bases. Heart: Regular rate and rhythm, S1-S2, no S3, no murmur or rub. Abdomen: Soft nontender, positive bowel sounds. Extremities: 2+ pitting edema right leg. left BKA, right third fourth fifth toe amputation Neuro: Alert, oritented, no focal deficits. Detailed neuro exam was not performed. ASSESSMENT Acute HFrEF exacerbation Poorly controlled hypertension ESRD on peritoneal dialysis Hyperkalemia Prior history of COPD Prior history of CAD s/p PCI Hyperlipidemia Type 2 diabetes PAD s/p left BKA, and right third fourth fifth toe amputation PLAN Continue aspirin 81 mg, amlodipine 5 mg twice daily, atorvastatin 40 mg daily. Increase metoprolol to 100 mg daily. Metolazone 5 mg daily, Lasix 60 mg IV twice daily Imdur 60 mg. Optimize medications further. Increase hydralazine from 50 mg 4 times daily to 75 mg 4 times daily Do not resume clonidine on discharge Objective - Vital Signs Vital signs: Vital Signs Temp 97.8 F 12/18/23 18:15 Pulse 74 12/18/23 18:15 Resp 18 12/18/23 18:15 BP 154/94 12/18/23 18:15 Pulse Ox 94 L 12/18/23 18:15 FiO2 45 12/18/23 03:26 Intake & Output 12/18/23 12/18/23 12/19/23 06:59 18:59 06:59 Intake Total 522 Output Total 300 850 Balance -300 -328 Weight 122.7 kg Intake: IV 20 Invasive Line 1 20 Oral 502 Output: Urine 300 850 Other: Voiding Method Urinal Urinal # Voids 1 - Labs CBC & Chem 7: 12/16/23 17:33 12/18/23 10:05 Labs: Abnormal Lab Results - Last 24 Hours (Table) 12/16/23 12/17/23 12/18/23 Range/Units 17:33 22:23 06:07 Sodium (137-145) mmol/L BUN (9-20) mg/dL Creatinine (0.66-1.25) mg/dL Glucose (74-99) mg/dL POC Glucose (mg/dL) 212 H 59 L (70-110) mg/dL Hemoglobin A1c 8.8 H (<=6.0) % 12/18/23 12/18/23 12/18/23 Range/Units 10:05 11:30 16:32 Sodium 135 L (137-145) mmol/L BUN 66 H (9-20) mg/dL Creatinine 2.70 H (0.66-1.25) mg/dL Glucose 168 H (74-99) mg/dL POC Glucose (mg/dL) 175 H 303 H (70-110) mg/dL Hemoglobin A1c (<=6.0) % 12/18/23 Range/Units 20:01 Sodium (137-145) mmol/L BUN (9-20) mg/dL Creatinine (0.66-1.25) mg/dL Glucose (74-99) mg/dL POC Glucose (mg/dL) 302 H (70-110) mg/dL Hemoglobin A1c (<=6.0) % Microbiology - Last 24 Hours (Table) 12/16/23 17:52 Blood Culture - Preliminary Blood 12/16/23 17:33 Blood Culture - Preliminary Blood
[2023-12-19 06:17] LABS: Glucose,Whole Blood 156 mg/dL (70-110)
[2023-12-19 09:55] LABS: African American GFR (CKD) 25 (>60 ml/min/1.73 sqM); Albumin 3.2 g/dL (3.5-5.0); Anion Gap 6 mmol/L; Blood Urea Nitrogen 65 mg/dL (9-20); Calcium 8.2 mg/dL (8.4-10.2); Carbon Dioxide 29 mmol/L (22-30); Chloride 101 mmol/L (98-107); Glucose 197 mg/dL (74-99); Non-African American GFR(CKD) 22 (>60 ml/min/1.73 sqM); Potassium 4.6 mmol/L (3.5-5.1); Sodium 136 mmol/L (137-145)
--- NOTE | 2023-12-19 10:27 | P.PN ---
Subjective Patient is seen in follow-up for end-stage renal disease. He is maintained on peritoneal dialysis. No problems with PD exchanges. On 2 L nasal cannula. Denies chest pain or shortness of breath. Vital signs are stable. General: No acute distress. HEENT: Head exam is unremarkable. On nasal cannula. LUNGS: No audible rhonchi or wheezes. HEART: Rate and Rhythm are regular. ABDOMEN: Obese, nontender. EXTREMITITES: 1+ edema. BKA noted. Objective - Vital Signs Vital signs: Vital Signs Temp 97.4 F L 12/19/23 06:22 Pulse 70 12/19/23 08:45 Resp 18 12/19/23 08:45 BP 147/85 12/19/23 06:22 Pulse Ox 95 12/19/23 08:30 FiO2 40 12/19/23 08:30 Intake & Output 12/18/23 12/19/23 12/19/23 18:59 06:59 18:59 Intake Total 522 30 356 Output Total 850 650 Balance -328 -620 356 Weight 122.7 kg Intake: IV 20 30 Invasive Line 1 20 30 Oral 502 356 Output: Urine 850 650 Other: Voiding Method Urinal Urinal # Voids 1 - Labs CBC & Chem 7: 12/16/23 17:33 12/19/23 09:07 Labs: Abnormal Lab Results - Last 24 Hours (Table) 12/16/23 12/18/23 12/18/23 Range/Units 17:33 10:05 11:30 Sodium 135 L (137-145) mmol/L BUN 66 H (9-20) mg/dL Creatinine 2.70 H (0.66-1.25) mg/dL Glucose 168 H (74-99) mg/dL POC Glucose (mg/dL) 175 H (70-110) mg/dL Hemoglobin A1c 8.8 H (<=6.0) % Calcium (8.4-10.2) mg/dL Albumin (3.5-5.0) g/dL 12/18/23 12/18/23 12/19/23 Range/Units 16:32 20:01 06:15 Sodium (137-145) mmol/L BUN (9-20) mg/dL Creatinine (0.66-1.25) mg/dL Glucose (74-99) mg/dL POC Glucose (mg/dL) 303 H 302 H 156 H (70-110) mg/dL Hemoglobin A1c (<=6.0) % Calcium (8.4-10.2) mg/dL Albumin (3.5-5.0) g/dL 12/19/23 Range/Units 09:07 Sodium 136 L (137-145) mmol/L BUN 65 H (9-20) mg/dL Creatinine 2.98 H (0.66-1.25) mg/dL Glucose 197 H (74-99) mg/dL POC Glucose (mg/dL) (70-110) mg/dL Hemoglobin A1c (<=6.0) % Calcium 8.2 L (8.4-10.2) mg/dL Albumin 3.2 L (3.5-5.0) g/dL Microbiology - Last 24 Hours (Table) 12/16/23 17:52 Blood Culture - Preliminary Blood 12/16/23 17:33 Blood Culture - Preliminary Blood Assessment and Plan Plan: Assessment: 1. End-stage renal disease maintained on peritoneal dialysis. 2. Volume overload. Improved. 3. Hypertension with chronic kidney disease. Stable. 4. Diabetes mellitus. 5. Chronic kidney disease mineral bone disease. Plan: Maintain current PD exchanges. Advised patient to maintain low-salt diet and fluid restriction of less than 50 ounces per day upon discharge. Blood sugar control.
[2023-12-19 11:39] LABS: Glucose,Whole Blood 127 mg/dL (70-110)
--- NOTE | 2023-12-19 14:00 | P.PN ---
Subjective Progress Note Date: 12/19/23 HISTORY OF PRESENTING ILLNESS 89-year-old presents to the hospital because of symptoms of shortness of breath at rest along with orthopnea and proximal nocturnal dyspnea. Patient is a end- stage renal disease requiring peritoneal dialysis. He reports that he has been compliant to his medication. He takes torsemide 20 mg twice daily and metolazone 5 mg at home. On admission his BNP was 5000., normal troponins BP 174/96, heart rate 82 bpm, ECG shows sinus rhythm with nonspecific IVCD Chest x-ray shows bilateral pulm congestion with small right pleural effusion. December 18, 2023 Patient reports that his urine output has improved on current regimen. His blood pressure is better controlled. He denies any chest pain. He reports his shortness of breath is better. 12/18 Patient is seen today in follow-up. Blood pressure 118/75, heart rate in the 60s and 70s, pulse ox 94% on 2 L nasal cannula. Repeat blood work reveals sodium 136, potassium 4.6, BUN 65 creatinine 2.98. Patient is followed by nephrology and maintained on peritoneal dialysis. Echocardiogram ordered and echocardiogram scheduled in the office will be canceled. PHYSICAL EXAMINATION Vital signs reviewed. Head: Normocephalic. Eyes: Sclerae nonicteric. Neck: Brisk carotid upstroke, no jugular venous distention. Lungs: Mild crackles in bilateral lung bases. Heart: Regular rate and rhythm, S1-S2, no S3, no murmur or rub. Abdomen: Soft nontender, positive bowel sounds. Extremities: 1+ pitting edema right leg. left BKA, right third fourth fifth toe amputation Neuro: Alert, oritented, no focal deficits. Detailed neuro exam was not performed. ASSESSMENT Acute HFrEF exacerbation Poorly controlled hypertension ESRD on peritoneal dialysis Hyperkalemia Prior history of COPD Prior history of CAD s/p PCI Hyperlipidemia Type 2 diabetes PAD s/p left BKA, and right third fourth fifth toe amputation PLAN Continue aspirin 81 mg, amlodipine 5 mg twice daily, atorvastatin 40 mg daily, hydralazine 75 mg 4 times daily, Imdur 60 mg daily, metolazone 5 mg daily, metoprolol succinate 100 mg daily. Continue patient on Lasix 60 mg IV twice daily Do not resume clonidine on discharge Further recommendations as patient progresses Nurse practitioner note has been reviewed, I agree with documented findings and plan of care. Patient was seen and examined. Objective - Vital Signs Vital signs: Vital Signs Temp 97.6 F 12/19/23 08:20 Pulse 70 12/19/23 08:45 Resp 18 12/19/23 08:45 BP 121/71 12/19/23 08:20 Pulse Ox 95 12/19/23 08:30 FiO2 40 12/19/23 08:30 Intake & Output 12/18/23 12/19/23 12/19/23 18:59 06:59 18:59 Intake Total 522 30 361 Output Total 850 650 Balance -328 -620 361 Weight 122.7 kg Intake: IV 20 30 5 Invasive Line 1 20 30 5 Oral 502 356 Output: Urine 850 650 Other: Voiding Method Urinal Urinal Urinal # Voids 1 - Labs CBC & Chem 7: 12/16/23 17:33 12/19/23 09:07 Labs: Abnormal Lab Results - Last 24 Hours (Table) 12/16/23 12/18/23 12/18/23 Range/Units 17:33 11:30 16:32 Sodium (137-145) mmol/L BUN (9-20) mg/dL Creatinine (0.66-1.25) mg/dL Glucose (74-99) mg/dL POC Glucose (mg/dL) 175 H 303 H (70-110) mg/dL Hemoglobin A1c 8.8 H (<=6.0) % Calcium (8.4-10.2) mg/dL Albumin (3.5-5.0) g/dL 12/18/23 12/19/23 12/19/23 Range/Units 20:01 06:15 09:07 Sodium 136 L (137-145) mmol/L BUN 65 H (9-20) mg/dL Creatinine 2.98 H (0.66-1.25) mg/dL Glucose 197 H (74-99) mg/dL POC Glucose (mg/dL) 302 H 156 H (70-110) mg/dL Hemoglobin A1c (<=6.0) % Calcium 8.2 L (8.4-10.2) mg/dL Albumin 3.2 L (3.5-5.0) g/dL Microbiology - Last 24 Hours (Table) 12/16/23 17:52 Blood Culture - Preliminary Blood 12/16/23 17:33 Blood Culture - Preliminary Blood
[2023-12-19 14:07] VITALS: BMI 38.8
--- NOTE | 2023-12-19 14:46 | P.PN ---
Subjective Progress Note Date: 12/19/23 Principal diagnosis: Acute on chronic hypoxic respiratory failure secondary to fluid overload This is a 58-year-old male patient who is very well-known to me. The patient is morbidly obese with a body mass index of 60. The patient has obstructive sleep apnea maintained on BiPAP on outpatient basis. His baseline AHI 78.3 and the patient has been maintained on treatment. He also has advanced COPD, end-stage renal disease and he undergoes peritoneal dialysis at home. He has peripheral vascular disease and previous BKA of the left lower extremity, coronary disease, diabetes mellitus type 2, hypertension hyperlipidemia and previous history of s moking. The patient came into the hospital because of progressive worsening shortness of breath. He was undergoing peritoneal dialysis without any significant improvement in his respiratory status. Based on that, the patient ended up coming into the emergency department for further evaluation. Initial chest x-ray was consistent with cardiomegaly and pulm vascular congestion and small effusions consistent with CHF and fluid overload. Note that his last echocardiogram that was done back in 2019 showed a preserved LV function and the patient was found to have an ejection fraction of 50 to 55% back then. Rest of the blood work shows a WBC count of 8.8 with a hemoglobin 10.5 and a platelet count of 235. Normal coagulation profile. BUN is 53 with a creatinine of 2.6. Electrolytes are stable with a potassium level of 5.4. Liver function tests are essentially within normal limits. proBNP level is 5416 and troponin is less than 0.01. The patient has no altered mentation. No chest pain. He did not utilize BiPAP overnight to the emergency department and the patient is currently off the BiPAP maintained on oxygen by nasal cannula at 3 L. The patient was also started on diuretics. The patient was started on IV Lasix and is currently receiving 60 mg every 12 hours and the patient is producing excellent amount of urine output in combination with Zaroxolyn. He seems to be in negative fluid balance. Awaiting nephrology consultation. No other significant events otherwise for now. He is free of any chest pain. No altered mentation. His EKG showed normal sinus rhythm along with old Q waves involving the anteroseptal leads. 12/18/2023, the patient is breathing much easier. He is currently on room air oxygen with a pulse ox of 92%. He was diuresed adequately. The patient was on a combination of Lasix 60 mg for 12 hours and the patient was also on Zaroxolyn. He is undergoing peritoneal dialysis. He utilized the BiPAP overnight at a pressure of 10 over 5 cm of water. Electrolytes from today show a potassium level of 5.1, BUN 66 with a creatinine of 2.7. Rest of the medications remain unchanged. BP is under better control. He is currently on metoprolol XL 100 mg p.o. daily, Norvasc 5 mg p.o. twice a day in addition to his diuretics. Hydralazine is also being administered a dose of 50 mg p.o. 4 times daily and Imdur 60 mg p.o. daily. He is undergoing PD with 2.5% dextrose solution every 6 hours. Echocardiogram was ordered. Patient was evaluated today on 12/19/2023, patient is feeling better, breathing easier, remains on diuretics, remains on bronchodilators, patient is receiving Lasix 60 mg every 12 hours, he is also on Zaroxolyn. Undergoing peritoneal dialysis. Patient is on BiPAP at night with a pressure of 10/5. Labs today showed relatively normal basic metabolic profile BUN is 65 creatinine 2.98 follow-up chest x-ray is pending, last chest x-ray showed evidence of pulmonary edema. Objective - Vital Signs Vital signs: Vital Signs Temp 97.5 F L 12/19/23 11:10 Pulse 70 12/19/23 11:56 Resp 18 12/19/23 11:56 BP 118/75 12/19/23 11:10 Pulse Ox 94 L 12/19/23 11:10 FiO2 40 12/19/23 08:30 Intake & Output 12/18/23 12/19/23 12/19/23 18:59 06:59 18:59 Intake Total 522 30 479 Output Total 850 650 900 Balance -328 -620 -421 Weight 122.7 kg 122.7 kg Intake: IV 20 30 5 Invasive Line 1 20 30 5 Oral 502 474 Output: Urine 850 650 900 Other: Voiding Method Urinal Urinal Urinal # Voids 1 - Exam General: Reveals a 58-year-old male in no distress, on 2 L nasal cannula O2 sat is 94% Skin: Skin is warm and dry and no rashes or lesions are noted. Eye: Pupils are equal, round and reactive to light, extra-ocular movements are intact; there is normal conjunctiva bilaterally. Ears, nose, mouth and throat: There are moist mucous membranes and no oral lesions. Neck: The neck is supple, there is no tenderness or JVD. Cardiovascular: There is a regular rate and rhythm. No murmur, rub or gallop is appreciated. Respiratory: Crackles and rhonchi noted bilaterally more so on forced expiratory maneuver. Gastrointestinal: Soft, non-distended, non-tender abdomen without masses or organomegaly noted. There is no rebound or guarding present. Bowel sounds are unremarkable. Back: There is no tenderness to palpation in the midline. There is no obvious deformity. Musculoskeletal: There is a left below-knee amputation. 1+ right lower extremity edema Neurological: CN II-XII intact, Cranial nerves III through XII are intact. There are no obvious motor or sensory deficits. Coordination appears grossly intact. Speech is normal. Psychiatric: Cooperative, appropriate mood & affect, normal judgment. - Labs CBC & Chem 7: 12/16/23 17:33 12/19/23 09:07 Labs: Abnormal Lab Results - Last 24 Hours (Table) 12/18/23 12/18/23 12/19/23 Range/Units 16:32 20:01 06:15 Sodium (137-145) mmol/L BUN (9-20) mg/dL Creatinine (0.66-1.25) mg/dL Glucose (74-99) mg/dL POC Glucose (mg/dL) 303 H 302 H 156 H (70-110) mg/dL Calcium (8.4-10.2) mg/dL Albumin (3.5-5.0) g/dL 12/19/23 12/19/23 Range/Units 09:07 11:34 Sodium 136 L (137-145) mmol/L BUN 65 H (9-20) mg/dL Creatinine 2.98 H (0.66-1.25) mg/dL Glucose 197 H (74-99) mg/dL POC Glucose (mg/dL) 127 H (70-110) mg/dL Calcium 8.2 L (8.4-10.2) mg/dL Albumin 3.2 L (3.5-5.0) g/dL Microbiology - Last 24 Hours (Table) 12/16/23 17:52 Blood Culture - Preliminary Blood 12/16/23 17:33 Blood Culture - Preliminary Blood Assessment and Plan Assessment: Impression:Acute on chronic hypoxic respiratory failure essentially due to fluid overload. Remains on diuretics. Patient has acute diastolic congestive heart failure. Shortness of breath secondary to above, clinically improving End-stage renal disease currently undergoing peritoneal dialysis, 2.5 dextrose solution 4 times a day Morbid obesity Obstructive sleep apnea, severe with a AHI of 78 Advanced COPD Peripheral vascular disease with previous BKA on the left End-stage renal disease presently on peritoneal dialysis Coronary artery disease Diabetes mellitus, with a component of steroid-induced hyperglycemia the patient was given IV Solu-Medrol in the emergency department. Hypertension, with an elevated blood pressure Hyperlipidemia Acid reflux History of smoking History of left below-knee amputation, and history of right third fourth and fifth toe amputation Recommendation: Continue diuretics Continue peritoneal dialysis Follow-up chest x-ray Continue bronchodilators for COPD Continue close monitoring of blood pressure and address accordingly Will continue to follow. Prognosis is guarded. Time with Patient: Less than 30
--- NOTE | 2023-12-19 15:16 | XR ---
EXAMINATION TYPE: XR chest 1V portable DATE OF EXAM: 12/19/2023 HISTORY: Shortness of breath. COMPARISON: 12/16/2023 TECHNIQUE: Single view of the chest is submitted. FINDINGS: Demonstrated are scattered senescent parenchymal change. Pulmonary venous congestion without overt f ailure. There is no evidence for focal infiltrate. The heart is stable. Hilar and mediastinal structures are within normal limits. Degenerative changes are seen of the dorsal spine. IMPRESSION: 1. Pulmonary venous congestion without overt failure.
[2023-12-19 16:47] LABS: Glucose,Whole Blood 96 mg/dL (70-110)
--- NOTE | 2023-12-19 19:26 | P.PN ---
Subjective Progress Note Date: 12/19/23 58-year-old male came with complaints of shortness of breath orthopnea, patient has pulm edema patient is peritoneal dialysis patient with chronic kidney disease, end-stage renal disease. Patient states he is compliant with his medications and his diet patient was on torsemide 20 mg twice a day along with metolazone 5 mg on daily basis at home. Patient was started on IV Lasix for 40 mg every 8 hourly with good urine output. He does not have any fever chills chest x-ray did not show any pneumonia did show pulm edema patient's BNP is around 5000 12/18/2023 Patient is evaluated in follow up today on the medical floor. Patient continues with scattered wheezing and is continued on scheduled updrafts as well as symbicort. Pulmonary following this. Continues on IV lasix does have improvement in his shortness of breath and is currently on room air. Maintained on peritoneal dialysis per nephrology. Sodium level 135 today, BUN 66, creatinine 2.70. 12/19/2023 Patient is evaluated today on the medical floor in follow up. Less short of breath and the scattered wheezing has resolved at this time. Patient continues with lower extremity edema. He remains on IV lasix 60 mg Q12 hour and will continue for the next 24 hours. Patient is using BiPAP at HS. He is continued on peritoneal dialysis per nephrology. Sodium level is 136, BUN of 65 and creatinine 2.98. Follow up chest xray today reveals pulmonary venous congestion without overt failure. Review of Systems Constitutional: Denied any fatigue denied any fever. Cardio vascular: denied any chest pain, palpitations Gastrointestinal: denied any nausea, vomiting, diarrhea Pulmonary: Denied any shortness of breath cough Neurologic denied any new focal deficits All inpatient medications were reviewed and appropriate changes in these medicat ions as dictated in the interval history and assessment and plan. PHYSICAL EXAMINATION: GENERAL: The patient is alert and oriented x3, not in any acute distress. Well developed, well nourished. HEENT: Pupils are round and equally reacting to light. EOMI. No scleral icterus. No conjunctival pallor. Normocephalic, atraumatic. No pharyngeal erythema. No thyromegaly. CARDIOVASCULAR: S1 and S2 present. No murmurs, rubs, or gallops. PULMONARY: Lungs are clear to auscultation no wheezing noted today. ABDOMEN: Soft, nontender, nondistended, normoactive bowel sounds. No palpable organomegaly. MUSCULOSKELETAL: No joint swelling or deformity. EXTREMITIES: No cyanosis, clubbing, or +1 pitting LE edema. Patient has an amputation on the left side as well as toe amputation on the right side NEUROLOGICAL: Gross neurological examination did not reveal any focal deficits. SKIN: No rashes. Assessment and plan -Congestive heart failure chronic diastolic function with acute exacerbation patient, continue with IV Lasix, input and output monitoring and electrolyte monitoring. Repeat echocardiogram pending at this time. -End-stage disease on peritoneal dialysis which is managed by nephrology. -Hyperkalemia secondary to kidney failure improved. -COPD without any significant exacerbation will not need any systemic steroids continues on updrafts scheduled and as needed, maintained on symbicort. -Coronary artery disease -Hyperlipidemia -Hypertension -Sleep apnea -Peripheral artery disease with amputations as mentioned above in the past below-knee on the left side and a third fourth and fifth toe amputation on the right side -Type 2 diabetes mellitus continue accuchecks ACHS and sliding scale insulin resumed on home dose 70/30 mix. DVT prophylaxis: Subcutaneous heparin Continue IV lasix for next 24 hours. Follow up BMP in the AM. Repeat echocardiogram pending at this time. Possible discharge in the next 24 hours. The impression and plan of care has been dictated by Sabine Kearns, Nurse Practitioner as directed. Dr. Yfn MD I have performed a history and physical examination and medical decision making of this patient, discussed the same with the dictator, and agree with the dictators assessment and plan as written, documented as a scribe. Based on total visit time, I have performed more than 50% of this visit. Objective - Vital Signs Vital signs: Vital Signs Temp 97.5 F L 12/19/23 11:10 Pulse 70 12/19/23 11:56 Resp 18 12/19/23 11:56 BP 118/75 12/19/23 11:10 Pulse Ox 94 L 12/19/23 11:10 FiO2 40 12/19/23 08:30 Intake & Output 12/18/23 12/19/23 12/19/23 18:59 06:59 18:59 Intake Total 522 30 484 Output Total 850 650 900 Balance -776 -620 -416 Weight 122.7 kg 122.7 kg Intake: IV 20 30 10 Invasive Line 1 20 30 10 Oral 502 474 Output: Urine 850 650 900 Other: Voiding Method Urinal Urinal Urinal # Voids 1 - Labs CBC & Chem 7: 12/16/23 17:33 12/19/23 09:07 Labs: Abnormal Lab Results - Last 24 Hours (Table) 12/18/23 12/18/23 12/19/23 Range/Units 16:32 20:01 06:15 Sodium (137-145) mmol/L BUN (9-20) mg/dL Creatinine (0.66-1.25) mg/dL Glucose (74-99) mg/dL POC Glucose (mg/dL) 303 H 302 H 156 H (70-110) mg/dL Calcium (8.4-10.2) mg/dL Albumin (3.5-5.0) g/dL 12/19/23 12/19/23 Range/Units 09:07 11:34 Sodium 136 L (137-145) mmol/L BUN 65 H (9-20) mg/dL Creatinine 2.98 H (0.66-1.25) mg/dL Glucose 197 H (74-99) mg/dL POC Glucose (mg/dL) 127 H (70-110) mg/dL Calcium 8.2 L (8.4-10.2) mg/dL Albumin 3.2 L (3.5-5.0) g/dL Microbiology - Last 24 Hours (Table) 12/16/23 17:52 Blood Culture - Preliminary Blood 12/16/23 17:33 Blood Culture - Preliminary Blood Assessment and Plan Time with Patient: Less than 30
[2023-12-19 20:04] LABS: Glucose,Whole Blood 131 mg/dL (70-110)
[2023-12-20 05:42] LABS: Glucose,Whole Blood 157 mg/dL (70-110)
[2023-12-20] MEDS ORDERED: BISMUTH SUBSALICYLATE 4,192 MG/240 ML BOTTLE PO PRN (06:39)
--- NOTE | 2023-12-20 07:34 | CA ---
Transthoracic Echo Report Name: Abdifatah Meier Age: 58 Gender: M : 1965 Exam Date: 12/19/2023 11:28 Exam Location: [place] [facility] Ht (in): 70 Wt (lb): 280 Ordering Physician: Byron Woods MD ([id number]) Attending/Referring Phys: [employer] Care[employer] Instructor Emeli Khalil RDCS Procedure CPT: Indications: LVEF only Cardiac Hx: Technical Quality: Technically difficult study Contrast 1: Definity Total Dose (mL): 2 Contrast 2: Total Dose (mL): MEASUREMENTS (Male / Female) Normal Values 2D ECHO LV Diastolic Diameter PLAX 5.1 cm 4.2 - 5.9 / 3.9 - 5.3 cm LV Systolic Diameter PLAX 3.5 cm IVS Diastolic Thickness 1.8 cm 0.6 - 1.0 / 0.6 - 0.9 cm LVPW Diastolic Thickness 1.8 cm 0.6 - 1.0 / 0.6 - 0.9 cm LV Relative Wall Thickness 0.7 FINDINGS Left Ventricle Severely increased left ventricular wall thickness. Left ventricular cavity size normal. No obvious regional wall motion abnormalities. Left ventricular ejection fraction is estimated at 45 %. Right Ventricle Right Atrium Left Atrium Mitral Valve Aortic Valve Tricuspid Valve Pulmonic Valve Pericardium No pericardial effusion. Aorta CONCLUSIONS Limited study The visualized endocardium in spite of using Definity The LV systolic function appears to be mildly impaired with EF around 45% No pericardial effusion Previewed by: Dr. Hunter Arenas MD (Electronically Signed) Final Date: 20 December 2023 07:33
[2023-12-20] MEDS: DOCUSATE 100 MG CAP PO SCH (09:10)
[2023-12-20 09:18] LABS: Glucose,Whole Blood 256 mg/dL (70-110)
[2023-12-20 09:34] LABS: Basophils % (A) 0 %; Eosinophils # (A) 0.1 k/uL (0-0.7); Eosinophils % (A) 1 %; HCT 29.9 % (39.0-53.0); HGB 9.4 gm/dL (13.0-17.5); Hypochromasia Slight; Lymphocytes % (A) 9 %; MCH 29.4 pg (25.0-35.0); MCHC 31.6 g/dL (31.0-37.0); Mean Platelet Volume 9.7; Monocytes # (A) 0.5 k/uL (0-1.0); Monocytes % (A) 5 %; Neutrophils # (A) 8.6 k/uL (1.3-7.7); Neutrophils % (A) 84 %; Platelet Count 248 k/uL (150-450); RBC 3.21 m/uL (4.30-5.90); RDW 14.6 % (11.5-15.5); WBC 10.2 k/uL (3.8-10.6)
[2023-12-20 09:37] LABS: African American GFR (CKD) 25 (>60 ml/min/1.73 sqM); Anion Gap 5 mmol/L; Blood Urea Nitrogen 67 mg/dL (9-20); Calcium 8.2 mg/dL (8.4-10.2); Carbon Dioxide 31 mmol/L (22-30); Chloride 99 mmol/L (98-107); Glucose 212 mg/dL (74-99); Magnesium 1.8 mg/dL (1.6-2.3); Non-African American GFR(CKD) 22 (>60 ml/min/1.73 sqM); Potassium 4.8 mmol/L (3.5-5.1); Sodium 135 mmol/L (137-145)
[2023-12-20] MEDS: CEPHALEXIN 500 MG CAP PO SCH (10:09)
[2023-12-20 10:47] LABS: Appearance,BF Cloudy (Clear)
[2023-12-20] MEDS ORDERED: VANCOMYCIN IV PER PHARMACY 1 EACH MISC MISCELLANE PRN (11:16)
--- NOTE | 2023-12-20 11:31 | P.PN ---
Subjective Patient is seen in follow-up for end-stage renal disease. He is maintained on peritoneal dialysis. Patient noted to have cloudy dialysate this morning. Fluid analysis suggestive of peritonitis. Vital signs are stable. General: No acute distress. HEENT: Head exam is unremarkable. On nasal cannula. LUNGS: No audible rhonchi or wheezes. HEART: Rate and Rhythm are regular. ABDOMEN: Obese, nontender. EXTREMITITES: 1+ edema. BKA noted. Objective - Vital Signs Vital signs: Vital Signs Temp 99.5 F 12/20/23 09:10 Pulse 86 12/20/23 09:10 Resp 18 12/20/23 09:10 BP 135/79 12/20/23 09:10 Pulse Ox 98 12/20/23 09:10 FiO2 45 12/20/23 03:59 Intake & Output 12/19/23 12/20/23 12/20/23 18:59 06:59 18:59 Intake Total 1560 100 Output Total 900 Balance 660 100 Weight 122.7 kg Intake: IV 10 Invasive Line 1 10 Oral 1550 100 Output: Urine 900 Other: Voiding Method Urinal Urinal Urinal # Voids 0 0 # Bowel Movements 0 - Labs CBC & Chem 7: 12/20/23 08:54 12/20/23 08:54 Labs: Abnormal Lab Results - Last 24 Hours (Table) 12/19/23 12/19/23 12/20/23 Range/Units 11:34 20:03 05:41 RBC (4.30-5.90) m/uL Hgb (13.0-17.5) gm/dL Hct (39.0-53.0) % Neutrophils # (1.3-7.7) k/uL Sodium (137-145) mmol/L Carbon Dioxide (22-30) mmol/L BUN (9-20) mg/dL Creatinine (0.66-1.25) mg/dL Glucose (74-99) mg/dL POC Glucose (mg/dL) 127 H 131 H 157 H (70-110) mg/dL Calcium (8.4-10.2) mg/dL Fluid Appearance (Clear) 12/20/23 12/20/23 12/20/23 Range/Units 07:06 08:54 08:54 RBC 3.21 L (4.30-5.90) m/uL Hgb 9.4 L (13.0-17.5) gm/dL Hct 29.9 L (39.0-53.0) % Neutrophils # 8.6 H (1.3-7.7) k/uL Sodium 135 L (137-145) mmol/L Carbon Dioxide 31 H (22-30) mmol/L BUN 67 H (9-20) mg/dL Creatinine 3.03 H (0.66-1.25) mg/dL Glucose 212 H (74-99) mg/dL POC Glucose (mg/dL) (70-110) mg/dL Calcium 8.2 L (8.4-10.2) mg/dL Fluid Appearance Cloudy A (Clear) 12/20/23 Range/Units 09:17 RBC (4.30-5.90) m/uL Hgb (13.0-17.5) gm/dL Hct (39.0-53.0) % Neutrophils # (1.3-7.7) k/uL Sodium (137-145) mmol/L Carbon Dioxide (22-30) mmol/L BUN (9-20) mg/dL Creatinine (0.66-1.25) mg/dL Glucose (74-99) mg/dL POC Glucose (mg/dL) 256 H (70-110) mg/dL Calcium (8.4-10.2) mg/dL Fluid Appearance (Clear) Microbiology - Last 24 Hours (Table) 12/16/23 17:52 Blood Culture - Preliminary Blood 12/16/23 17:33 Blood Culture - Preliminary Blood Assessment and Plan Plan: Assessment: 1. End-stage renal disease maintained on peritoneal dialysis. 2. Volume overload. Improved. 3. Hypertension with chronic kidney disease. Stable. 4. Diabetes mellitus. 5. Chronic kidney disease mineral bone disease. 6. PD associated peritonitis. Dialysate WBC count 14,234 with PMN count of 95%. Plan: Maintain current PD exchanges. Advised patient to maintain low-salt diet and fluid restriction of less than 50 ounces per day upon discharge. Blood sugar control. Add Keflex due to pinkish discoloration noted next to the PD catheter site. Start intraperitoneal antibiotics -1 g intraperitoneal vancomycin and Fortaz today. Maintain Fortaz daily starting tomorrow. ID also consulted. Stop Zaroxolyn.
[2023-12-20 11:39] LABS: Glucose,Whole Blood 182 mg/dL (70-110)
[2023-12-20] MEDS: VANCOMYCIN 2,000 MG in SODIUM CHLORIDE 0.9% 500 ML 500 ML IVPB ONE (12:29)
[2023-12-20] MEDS: BISMUTH SUBSALICYLATE 4,192 MG/240 ML BOTTLE PO ONE (12:30)
--- NOTE | 2023-12-20 13:17 | P.PN ---
Subjective Progress Note Date: 12/20/23 Principal diagnosis: Acute on chronic hypoxic respiratory failure secondary to fluid overload This is a 58-year-old male patient who is very well-known to me. The patient is morbidly obese with a body mass index of 60. The patient has obstructive sleep apnea maintained on BiPAP on outpatient basis. His baseline AHI 78.3 and the patient has been maintained on treatment. He also has advanced COPD, end-stage renal disease and he undergoes peritoneal dialysis at home. He has peripheral vascular disease and previous BKA of the left lower extremity, coronary disease, diabetes mellitus type 2, hypertension hyperlipidemia and previous history of s moking. The patient came into the hospital because of progressive worsening shortness of breath. He was undergoing peritoneal dialysis without any significant improvement in his respiratory status. Based on that, the patient ended up coming into the emergency department for further evaluation. Initial chest x-ray was consistent with cardiomegaly and pulm vascular congestion and small effusions consistent with CHF and fluid overload. Note that his last echocardiogram that was done back in 2019 showed a preserved LV function and the patient was found to have an ejection fraction of 50 to 55% back then. Rest of the blood work shows a WBC count of 8.8 with a hemoglobin 10.5 and a platelet count of 235. Normal coagulation profile. BUN is 53 with a creatinine of 2.6. Electrolytes are stable with a potassium level of 5.4. Liver function tests are essentially within normal limits. proBNP level is 5416 and troponin is less than 0.01. The patient has no altered mentation. No chest pain. He did not utilize BiPAP overnight to the emergency department and the patient is currently off the BiPAP maintained on oxygen by nasal cannula at 3 L. The patient was also started on diuretics. The patient was started on IV Lasix and is currently receiving 60 mg every 12 hours and the patient is producing excellent amount of urine output in combination with Zaroxolyn. He seems to be in negative fluid balance. Awaiting nephrology consultation. No other significant events otherwise for now. He is free of any chest pain. No altered mentation. His EKG showed normal sinus rhythm along with old Q waves involving the anteroseptal leads. 12/18/2023, the patient is breathing much easier. He is currently on room air oxygen with a pulse ox of 92%. He was diuresed adequately. The patient was on a combination of Lasix 60 mg for 12 hours and the patient was also on Zaroxolyn. He is undergoing peritoneal dialysis. He utilized the BiPAP overnight at a pressure of 10 over 5 cm of water. Electrolytes from today show a potassium level of 5.1, BUN 66 with a creatinine of 2.7. Rest of the medications remain unchanged. BP is under better control. He is currently on metoprolol XL 100 mg p.o. daily, Norvasc 5 mg p.o. twice a day in addition to his diuretics. Hydralazine is also being administered a dose of 50 mg p.o. 4 times daily and Imdur 60 mg p.o. daily. He is undergoing PD with 2.5% dextrose solution every 6 hours. Echocardiogram was ordered. Patient was evaluated today on 12/19/2023, patient is feeling better, breathing easier, remains on diuretics, remains on bronchodilators, patient is receiving Lasix 60 mg every 12 hours, he is also on Zaroxolyn. Undergoing peritoneal dialysis. Patient is on BiPAP at night with a pressure of 10/5. Labs today showed relatively normal basic metabolic profile BUN is 65 creatinine 2.98 follow-up chest x-ray is pending, last chest x-ray showed evidence of pulmonary edema. Patient was reevaluated today on 12/20/2023, patient is not doing well today, apparently he had intermittent episodes of confusion last night, patient was found to have cloudy dialysate this morning, and fluid analysis suggestive of peritonitis, the fluid from the peritoneal cavity/fluid dialysate showed 14,254 WBC count, and 95% PMNs. This is clearly consistent with acute peritonitis from his peritoneal dialysis. Patient was started on intraperitoneal Fortaz, and IV vancomycin. His WBC count today is 10.2 hemoglobin 9.4 basic metabolic profile is normal BUN is 67 creatinine 3.0 Objective - Vital Signs Vital signs: Vital Signs Temp 98 F 12/20/23 11:54 Pulse 82 12/20/23 11:54 Resp 17 12/20/23 11:54 BP 127/74 12/20/23 11:54 Pulse Ox 99 12/20/23 11:54 FiO2 45 12/20/23 03:59 Intake & Output 12/19/23 12/20/23 12/20/23 18:59 06:59 18:59 Intake Total 1560 100 Output Total 900 Balance 660 100 Weight 122.7 kg Intake: IV 10 Invasive Line 1 10 Oral 1550 100 Output: Urine 900 Other: Voiding Method Urinal Urinal Urinal # Voids 0 0 # Bowel Movements 0 - Exam General: Reveals a 58-year-old male in no distress, on 2 L nasal cannula O2 sat is 99% Skin: Skin is warm and dry and no rashes or lesions are noted. Eye: Pupils are equal, round and reactive to light, extra-ocular movements are intact; there is normal conjunctiva bilaterally. Ears, nose, mouth and throat: There are moist mucous membranes and no oral lesions. Neck: The neck is supple, there is no tenderness or JVD. Cardiovascular: There is a regular rate and rhythm. No murmur, rub or gallop is appreciated. Respiratory: Crackles and rhonchi noted bilaterally more so on forced expiratory maneuver. Gastrointestinal: Soft, non-distended, non-tender abdomen without masses or organomegaly noted. There is no rebound or guarding present. Bowel sounds are unremarkable. Back: There is no tenderness to palpation in the midline. There is no obvious deformity. Musculoskeletal: There is a left below-knee amputation. 1+ right lower extremity edema Neurological: CN II-XII intact, Cranial nerves III through XII are intact. There are no obvious motor or sensory deficits. Coordination appears grossly intact. Speech is normal. Psychiatric: Cooperative, appropriate mood & affect, normal judgment. - Labs CBC & Chem 7: 12/20/23 08:54 12/20/23 08:54 Labs: Abnormal Lab Results - Last 24 Hours (Table) 12/19/23 12/20/23 12/20/23 Range/Units 20:03 05:41 07:06 RBC (4.30-5.90) m/uL Hgb (13.0-17.5) gm/dL Hct (39.0-53.0) % Neutrophils # (1.3-7.7) k/uL Sodium (137-145) mmol/L Carbon Dioxide (22-30) mmol/L BUN (9-20) mg/dL Creatinine (0.66-1.25) mg/dL Glucose (74-99) mg/dL POC Glucose (mg/dL) 131 H 157 H (70-110) mg/dL Calcium (8.4-10.2) mg/dL Fluid Appearance Cloudy A (Clear) 12/20/23 12/20/23 12/20/23 Range/Units 08:54 08:54 09:17 RBC 3.21 L (4.30-5.90) m/uL Hgb 9.4 L (13.0-17.5) gm/dL Hct 29.9 L (39.0-53.0) % Neutrophils # 8.6 H (1.3-7.7) k/uL Sodium 135 L (137-145) mmol/L Carbon Dioxide 31 H (22-30) mmol/L BUN 67 H (9-20) mg/dL Creatinine 3.03 H (0.66-1.25) mg/dL Glucose 212 H (74-99) mg/dL POC Glucose (mg/dL) 256 H (70-110) mg/dL Calcium 8.2 L (8.4-10.2) mg/dL Fluid Appearance (Clear) 12/20/23 Range/Units 11:38 RBC (4.30-5.90) m/uL Hgb (13.0-17.5) gm/dL Hct (39.0-53.0) % Neutrophils # (1.3-7.7) k/uL Sodium (137-145) mmol/L Carbon Dioxide (22-30) mmol/L BUN (9-20) mg/dL Creatinine (0.66-1.25) mg/dL Glucose (74-99) mg/dL POC Glucose (mg/dL) 182 H (70-110) mg/dL Calcium (8.4-10.2) mg/dL Fluid Appearance (Clear) Microbiology - Last 24 Hours (Table) 12/20/23 07:06 Gram Stain - Preliminary Peritoneal Fluid 12/16/23 17:52 Blood Culture - Preliminary Blood 12/16/23 17:33 Blood Culture - Preliminary Blood Assessment and Plan Assessment: Impression: Acute peritonitis based on abnormal dialysate, the findings are highly consi stent with acute peritonitis. Acute on chronic hypoxic respiratory failure essentially due to fluid overload. Remains on diuretics. Patient has acute diastolic congestive heart failure. Shortness of breath secondary to above, clinically improving End-stage renal disease currently undergoing peritoneal dialysis, 2.5 dextrose solution 4 times a day Morbid obesity Obstructive sleep apnea, severe with a AHI of 78 Advanced COPD Peripheral vascular disease with previous BKA on the left End-stage renal disease presently on peritoneal dialysis Coronary artery disease Diabetes mellitus, with a component of steroid-induced hyperglycemia the patient was given IV Solu-Medrol in the emergency department. Hypertension, with an elevated blood pressure Hyperlipidemia Acid reflux History of smoking History of left below-knee amputation, and history of right third fourth and fifth toe amputation Recommendation: Antibiotics/Fortaz and vancomycin as ordered by infectious disease on the case and by nephrology Continue diuretics Continue peritoneal dialysis Continue bronchodilators for COPD Continue close monitoring of blood pressure and address accordingly, if the patient becomes septic the plan is to transfer to ICU. Will continue to follow. Prognosis is guarded. Time with Patient: Less than 30
--- NOTE | 2023-12-20 13:26 | P.PN ---
Subjective Progress Note Date: 12/20/23 HISTORY OF PRESENTING ILLNESS 89-year-old presents to the hospital because of symptoms of shortness of breath at rest along with orthopnea and proximal nocturnal dyspnea. Patient is a end- stage renal disease requiring peritoneal dialysis. He reports that he has been compliant to his medication. He takes torsemide 20 mg twice daily and metolazone 5 mg at home. On admission his BNP was 5000., normal troponins BP 174/96, heart rate 82 bpm, ECG shows sinus rhythm with nonspecific IVCD Chest x-ray shows bilateral pulm congestion with small right pleural effusion. December 18, 2023 Patient reports that his urine output has improved on current regimen. His blood pressure is better controlled. He denies any chest pain. He reports his shortness of breath is better. 12/18 Patient is seen today in follow-up. Blood pressure 118/75, heart rate in the 60s and 70s, pulse ox 94% on 2 L nasal cannula. Repeat blood work reveals sodium 136, potassium 4.6, BUN 65 creatinine 2.98. Patient is followed by nephrology and maintained on peritoneal dialysis. Echocardiogram ordered and echocardiogram scheduled in the office will be canceled. 12/19 Patient is seen today in follow-up. He has been diagnosed with peritonitis and to start on IV and intraperitoneal antibiotics. Blood pressure 127/74, heart r ate in the 80s, pulse ox 99% on 2 L nasal cannula. Repeat blood work reveals hemoglobin of 9.4. Sodium 135, potassium 4.8, BUN 67 and creatinine 3.03. Chest x-ray performed yesterday afternoon revealed pulmonary venous congestion without overt failure. Echocardiogram limited study revealed EF of 45%. No pericardial effusion. PHYSICAL EXAMINATION Vital signs reviewed. Head: Normocephalic. Eyes: Sclerae nonicteric. Neck: Brisk carotid upstroke, no jugular venous distention. Lungs: Mild crackles in bilateral lung bases. Heart: Regular rate and rhythm, S1-S2, no S3, no murmur or rub. Abdomen: Soft nontender, positive bowel sounds. Extremities: 1+ pitting edema right leg. left BKA, right third fourth fifth toe amputation Neuro: Alert, oritented, no focal deficits. Detailed neuro exam was not performed. ASSESSMENT Acute HFrEF exacerbation Poorly controlled hypertension ESRD on peritoneal dialysis Hyperkalemia Prior history of COPD Prior history of CAD s/p PCI Hyperlipidemia Type 2 diabetes PAD s/p left BKA, and right third fourth fifth toe amputation PLAN Continue aspirin 81 mg, amlodipine 5 mg twice daily, atorvastatin 40 mg daily, hydralazine 75 mg 4 times daily, Imdur 60 mg daily, metolazone 5 mg daily, metoprolol succinate 100 mg daily. Continue patient on Lasix 60 mg IV twice daily Do not resume clonidine on discharge No medication changes made today. Further recommendations as patient progresses Nurse practitioner note has been reviewed, I agree with documented findings and plan of care. Patient was seen and examined. Objective - Vital Signs Vital signs: Vital Signs Temp 99.5 F 12/20/23 09:10 Pulse 86 12/20/23 09:10 Resp 18 12/20/23 09:10 BP 135/79 12/20/23 09:10 Pulse Ox 98 12/20/23 09:10 FiO2 45 12/20/23 03:59 Intake & Output 12/19/23 12/20/23 12/20/23 18:59 06:59 18:59 Intake Total 1560 100 Output Total 900 Balance 660 100 Weight 122.7 kg Intake: IV 10 Invasive Line 1 10 Oral 1550 100 Output: Urine 900 Other: Voiding Method Urinal Urinal Urinal # Voids 0 0 # Bowel Movements 0 - Labs CBC & Chem 7: 12/20/23 08:54 12/20/23 08:54 Labs: Abnormal Lab Results - Last 24 Hours (Table) 12/19/23 12/19/23 12/20/23 Range/Units 11:34 20:03 05:41 RBC (4.30-5.90) m/uL Hgb (13.0-17.5) gm/dL Hct (39.0-53.0) % Neutrophils # (1.3-7.7) k/uL Sodium (137-145) mmol/L Carbon Dioxide (22-30) mmol/L BUN (9-20) mg/dL Creatinine (0.66-1.25) mg/dL Glucose (74-99) mg/dL POC Glucose (mg/dL) 127 H 131 H 157 H (70-110) mg/dL Calcium (8.4-10.2) mg/dL Fluid Appearance (Clear) 12/20/23 12/20/23 12/20/23 Range/Units 07:06 08:54 08:54 RBC 3.21 L (4.30-5.90) m/uL Hgb 9.4 L (13.0-17.5) gm/dL Hct 29.9 L (39.0-53.0) % Neutrophils # 8.6 H (1.3-7.7) k/uL Sodium 135 L (137-145) mmol/L Carbon Dioxide 31 H (22-30) mmol/L BUN 67 H (9-20) mg/dL Creatinine 3.03 H (0.66-1.25) mg/dL Glucose 212 H (74-99) mg/dL POC Glucose (mg/dL) (70-110) mg/dL Calcium 8.2 L (8.4-10.2) mg/dL Fluid Appearance Cloudy A (Clear) 12/20/23 Range/Units 09:17 RBC (4.30-5.90) m/uL Hgb (13.0-17.5) gm/dL Hct (39.0-53.0) % Neutrophils # (1.3-7.7) k/uL Sodium (137-145) mmol/L Carbon Dioxide (22-30) mmol/L BUN (9-20) mg/dL Creatinine (0.66-1.25) mg/dL Glucose (74-99) mg/dL POC Glucose (mg/dL) 256 H (70-110) mg/dL Calcium (8.4-10.2) mg/dL Fluid Appearance (Clear) Microbiology - Last 24 Hours (Table) 12/16/23 17:52 Blood Culture - Preliminary Blood 12/16/23 17:33 Blood Culture - Preliminary Blood
[2023-12-20 16:45] LABS: Glucose,Whole Blood 277 mg/dL (70-110)
[2023-12-20] MEDS: DIALYSIS (PERIT 2.5%) 2,500 ML 62.5 G/2,500 ML BAG INTRAPERIT SCH (17:43)
[2023-12-20 19:56] LABS: Glucose,Whole Blood 230 mg/dL (70-110)
--- NOTE | 2023-12-20 20:50 | P.PN ---
Subjective Progress Note Date: 12/20/23 58-year-old male came with complaints of shortness of breath orthopnea, patient has pulm edema patient is peritoneal dialysis patient with chronic kidney disease, end-stage renal disease. Patient states he is compliant with his medications and his diet patient was on torsemide 20 mg twice a day along with metolazone 5 mg on daily basis at home. Patient was started on IV Lasix for 40 mg every 8 hourly with good urine output. He does not have any fever chills chest x-ray did not show any pneumonia did show pulm edema patient's BNP is around 5000 12/18/2023 Patient is evaluated in follow up today on the medical floor. Patient continues with scattered wheezing and is continued on scheduled updrafts as well as symbicort. Pulmonary following this. Continues on IV lasix does have improvement in his shortness of breath and is currently on room air. Maintained on peritoneal dialysis per nephrology. Sodium level 135 today, BUN 66, creatinine 2.70. 12/19/2023 Patient is evaluated today on the medical floor in follow up. Less short of breath and the scattered wheezing has resolved at this time. Patient continues with lower extremity edema. He remains on IV lasix 60 mg Q12 hour and will continue for the next 24 hours. Patient is using BiPAP at HS. He is continued on peritoneal dialysis per nephrology. Sodium level is 136, BUN of 65 and creatinine 2.98. Follow up chest xray today reveals pulmonary venous congestion without overt failure. 12/20/2023 Patient evaluated today he is lethargic. Patient with his previous 2 CAPD exchanges overnight noted to have cloudy return and abdominal pain with dialysis. Nephrology has added fortaz and vanco to the solution. Blood cultures have been obtained. His echocardiogram has come back revealing an EF of around 45%. He is continued on IV lasix. Review of Systems Constitutional: Denied any fatigue denied any fever. Cardio vascular: denied any chest pain, palpitations Gastrointestinal: denied any nausea, vomiting, diarrhea Pulmonary: Denied any shortness of breath cough Neurologic denied any new focal deficits All inpatient medications were reviewed and appropriate changes in these medications as dictated in the interval history and assessment and plan. PHYSICAL EXAMINATION: GENERAL: The patient is alert and oriented x3, not in any acute distress. Well developed, well nourished. Lethargic. HEENT: Pupils are round and equally reacting to light. EOMI. No scleral icterus. No conjunctival pallor. Normocephalic, atraumatic. No pharyngeal erythema. No thyromegaly. CARDIOVASCULAR: S1 and S2 present. No murmurs, rubs, or gallops. PULMONARY: Lungs are clear to auscultation no wheezing noted today. ABDOMEN: Soft, nontender, nondistended, normoactive bowel sounds. No palpable organomegaly. MUSCULOSKELETAL: No joint swelling or deformity. EXTREMITIES: No cyanosis, clubbing, or +1 pitting LE edema. Patient has an amputation on the left side as well as toe amputation on the right side NEUROLOGICAL: Gross neurological examination did not reveal any focal deficits. SKIN: No rashes. Assessment and plan -Congestive heart failure with reduced ejection fraction, acute exacerbation, continue with IV Lasix, input and output monitoring and electrolyte monitoring. -End-stage disease on peritoneal dialysis which is managed by nephrology. -Concern for bacterial peritonitis antibiotics have been added to solution and blood cultures taken. ID consulted. -Hyperkalemia secondary to kidney failure improved. -COPD without any significant exacerbation will not need any systemic steroids continues on updrafts scheduled and as needed, maintained on symbicort. -Coronary artery disease -Hyperlipidemia -Hypertension remain off clonidine. -Sleep apnea -Peripheral artery disease with amputations as mentioned above in the past belo w-knee on the left side and a third fourth and fifth toe amputation on the right side -Type 2 diabetes mellitus continue accuchecks ACHS and sliding scale insulin resumed on home dose 70/30 mix. DVT prophylaxis: Subcutaneous heparin Continue IV lasix for next 24 hours. Follow up BMP in the AM. Repeat echocardiogram pending at this time. Possible discharge in the next 24 hours. The impression and plan of care has been dictated by Sabine Kearns Nurse Practitioner as directed. Dr. Yfn MD I have performed a history and physical examination and medical decision making of this patient, discussed the same with the dictator, and agree with the dictators assessment and plan as written, documented as a scribe. Based on total visit time, I have performed more than 50% of this visit. Objective - Vital Signs Vital signs: Vital Signs Temp 98.1 F 12/20/23 17:50 Pulse 92 12/20/23 17:50 Resp 18 12/20/23 17:50 BP 109/64 12/20/23 17:50 Pulse Ox 97 12/20/23 17:50 FiO2 45 12/20/23 03:59 Intake & Output 12/20/23 12/20/23 12/21/23 06:59 18:59 06:59 Intake Total 1120 Output Total 700 Balance 420 Intake: Oral 1120 Output: Urine 700 Other: Voiding Method Urinal Urinal # Voids 0 1 # Bowel Movements 0 - Labs CBC & Chem 7: 12/20/23 08:54 12/20/23 08:54 Labs: Abnormal Lab Results - Last 24 Hours (Table) 12/20/23 12/20/23 12/20/23 Range/Units 05:41 07:06 08:54 RBC (4.30-5.90) m/uL Hgb (13.0-17.5) gm/dL Hct (39.0-53.0) % Neutrophils # (1.3-7.7) k/uL Sodium 135 L (137-145) mmol/L Carbon Dioxide 31 H (22-30) mmol/L BUN 67 H (9-20) mg/dL Creatinine 3.03 H (0.66-1.25) mg/dL Glucose 212 H (74-99) mg/dL POC Glucose (mg/dL) 157 H (70-110) mg/dL Calcium 8.2 L (8.4-10.2) mg/dL Fluid Appearance Cloudy A (Clear) 12/20/23 12/20/23 12/20/23 Range/Units 08:54 09:17 11:38 RBC 3.21 L (4.30-5.90) m/uL Hgb 9.4 L (13.0-17.5) gm/dL Hct 29.9 L (39.0-53.0) % Neutrophils # 8.6 H (1.3-7.7) k/uL Sodium (137-145) mmol/L Carbon Dioxide (22-30) mmol/L BUN (9-20) mg/dL Creatinine (0.66-1.25) mg/dL Glucose (74-99) mg/dL POC Glucose (mg/dL) 256 H 182 H (70-110) mg/dL Calcium (8.4-10.2) mg/dL Fluid Appearance (Clear) 12/20/23 12/20/23 Range/Units 16:44 19:54 RBC (4.30-5.90) m/uL Hgb (13.0-17.5) gm/dL Hct (39.0-53.0) % Neutrophils # (1.3-7.7) k/uL Sodium (137-145) mmol/L Carbon Dioxide (22-30) mmol/L BUN (9-20) mg/dL Creatinine (0.66-1.25) mg/dL Glucose (74-99) mg/dL POC Glucose (mg/dL) 277 H 230 H (70-110) mg/dL Calcium (8.4-10.2) mg/dL Fluid Appearance (Clear) Microbiology - Last 24 Hours (Table) 12/20/23 07:06 Gram Stain - Preliminary Peritoneal Fluid 12/16/23 17:52 Blood Culture - Preliminary Blood 12/16/23 17:33 Blood Culture - Preliminary Blood Assessment and Plan Time with Patient: Less than 30
--- NOTE | 2023-12-20 22:15 | P.CONS ---
History of Present Illness - Reason for Consult Consult date: 12/20/23 CAPD peritonitis Requesting physician: Luciano Melendez - Chief Complaint Abdominal pain x 1 day - History of Present Illness Patient is a 58-year-old male with a past medical history significant for coronary artery disease COPD diabetes mellitus hypertension hyperlipidemia end- stage renal renal disease on peritoneal dialysis for about a year presenting to the hospital 4 days ago for evaluation of difficulty in breathing and this patient symptom has been getting worse for 2 to 3 days before presentation to the hospital no clear history of any fever or any chills patient has been admitted to the hospital has been treated for underlying COPD patient was afebrile on presentation to the hospital and remains to be afebrile was not tachycardic hypotensive mildly hypoxic on 2 L nasal cannula oxygen patient started having abdominal pain last night describes the pain to be sharp moderate intensity without any radiation and also noticed to have some cloudy peritoneal fluid peritoneal fluid was sent this morning for analysis with concerning for PD catheter associated peritonitis patient has been started on intraperitoneal ceftazidime received a dose of vancomycin infectious disease was consulted for further management of antibiotic therapy nursing staff did mention erythema around the PD catheter site this morning before the patient was given the antibiotics Review of Systems Positive point and negatives has been mentioned in the HPI, complete review of systems was performed and all other systems are negative Past Medical History Past Medical History: Coronary Artery Disease (CAD), Heart Failure, COPD, Diabetes Mellitus, Eye Disorder, GERD/Reflux, Hyperlipidemia, Hypertension, Myocardial Infarction ([place]), Renal Disease, Respiratory Disorder, Sleep Apnea/CPAP/BIPAP, Vascular Disorder Additional Past Medical History / Comment(s): Poor circulation in hands and le gs/feet. lt foot bka, has prosthesis, past shingles 1997(face), " I take allopurinol to prevent gout", "on 2 occassions had dialysis, has muscle disorder in eye, HEMODIALYSIS TUTHSA , O2 AT 2.5 LITER DURING THE NIGHT Last Myocardial Infarction Date:: 2014 History of Any Multi-Drug Resistant Organisms: MRSA Year Discovered:: approx 2016 MDRO Source:: right foot Past Surgical History: Heart Catheterization With Stent, Hernia Repair, Tonsillectomy Additional Past Surgical History / Comment(s): Right foot 3rd and 4th AND 5TH toes and area of foot amputated, cyst on scrotum removed. partial amp lt foot but had non healing wound which resulted in lt bka. matilde cataracts removed-has lens implants. x3 rt inguinal hernia sx and an umb hernia repair. BELOW KNEE AMPUTATION , COLONOSCOPY Past Anesthesia/Blood Transfusion Reactions: No Reported Reaction Additional Past Anesthesia/Blood Transfusion Reaction / Comm: States he was in the ICU after his surgery on his toes, but does not know why. Date of Last Stent Placement:: 05/2015 APPROX Past Psychological History: Anxiety, Depression, Panic Disorder Additional Psychological History / Comment(s): Single, has been in extended care for several months and is now just gone home. Since arriving home he denied having increasing difficulties with his limbs, his glucose and his tobacco use. Smoking Status: Former smoker Past Alcohol Use History: None Reported Additional Past Alcohol Use History / Comment(s): stopped smoking 2023 Past Drug Use History: Marijuana Additional Drug Use History / Comment(s): Occas.past marijuana use. , THC OIL INSTRUCTED TO HOLD 24 HOURS PRIOR - Past Family History Father History Unknown: Yes Mother History Unknown: Yes Family Medical History: Cancer, Coronary Artery Disease (CAD) Additional Family Medical History / Comment(s): benign Brain tumor, [place] syndrome Sister(s) Family Medical History: No Reported History Medications and Allergies Home Medications Medication Instructions Recorded Confirmed Type Tamsulosin [Flomax] 0.4 mg PO DAILY 04/14/18 12/16/23 History Albuterol Inhaler [Ventolin Hfa 1 - 2 puff INHALATION RT-Q6H PRN 03/09/19 12/16/23 History Inhaler] Atorvastatin [Lipitor] 80 mg PO HS #90 tab 06/23/19 12/16/23 Rx Clopidogrel [Plavix] 75 mg PO DAILY #90 tab 06/23/19 12/16/23 Rx hydrALAZINE HCL [Apresoline] 25 mg PO TID 02/23/22 12/16/23 History metOLazone [Zaroxolyn] 5 mg PO DAILY 02/23/22 12/16/23 History Fluticasone/Umeclidin/Vilanter 1 puff INHALATION RT-DAILY 02/24/22 12/16/23 History [Trelegy Ellipta 100-62.5-25] Isosorbide Mononitrate ER [Imdur] 60 mg PO DAILY 03/11/22 12/16/23 History Pantoprazole [Protonix] 40 mg PO BID 03/11/22 12/16/23 History oxyCODONE-APAP 10-325MG [Percocet 1 tab PO Q6H 03/11/22 12/17/23 History 10-325 mg] FLUoxetine HCL [PROzac] 40 mg PO BID 09/11/23 12/16/23 History Gabapentin [Neurontin] 400 mg PO HS 09/11/23 12/16/23 History Insulin NPH/Reg Insulin 70/30 See Protocol SQ AC-TID 09/11/23 12/16/23 History [humuLIN 70/30 VIAL] Metoprolol Succinate [Toprol XL] 50 mg PO DAILY 09/11/23 12/16/23 History amLODIPine [Norvasc] 5 mg PO BID #60 tab 09/12/23 12/16/23 Rx Aspirin EC [Ecotrin Low Dose] 81 mg PO HS 12/16/23 12/16/23 History Dulaglutide [Trulicity] 0.75 mg SQ TU 12/16/23 12/16/23 History Lactulose 20 gm PO DIRECTED 12/16/23 12/16/23 History Loratadine 10 mg PO HS 12/16/23 12/16/23 History Nitroglycerin Sl Tabs [Nitrostat] 0.4 mg SL Q5M PRN 12/16/23 12/16/23 History Oxymetazoline HCl [Vicks Sinex] 1 spray EA NOSTRIL DAILY PRN 12/16/23 12/16/23 History Torsemide [Demadex] 20 mg PO BID@0900,1600 12/16/23 12/16/23 History allopurinoL [Zyloprim] 100 mg PO DAILY 12/16/23 12/16/23 History Allergies Allergy/AdvReac Type Severity Reaction Status Date / Time codeine AdvReac headache, Verified 09/11/23 12:03 DIZZY, N/V hydrocodone [From Vicodin] AdvReac Nausea & Verified 09/11/23 12:03 Vomiting tramadol AdvReac Nausea & Verified 09/11/23 12:03 Vomiting Physical Exam Vitals: Vital Signs Temp Pulse Pulse Resp BP BP Pulse Ox 12/20/23 09:10 99.5 F 86 18 135/79 98 12/20/23 08:18 76 12/20/23 08:07 82 95 06/18/24 05:35 99.3 F 90 20 157/80 95 12/20/23 03:59 12/20/23 02:00 20 12/20/23 01:30 97.3 F L 85 20 134/82 100 12/19/23 23:45 97.4 F L 70 16 134/69 93 L 12/19/23 21:30 71 18 12/19/23 21:23 71 18 12/19/23 20:00 97.8 F 70 18 133/74 96 12/19/23 16:08 77 18 12/19/23 16:00 67 16 127/72 96 12/19/23 15:57 72 18 12/19/23 11:56 70 18 12/19/23 11:47 72 18 12/19/23 11:10 97.5 F L 69 16 118/75 94 L FiO2 12/20/23 09:10 12/20/23 08:18 12/20/23 08:07 12/20/23 05:35 12/20/23 03:59 45 12/20/23 02:00 12/20/23 01:30 12/19/23 23:45 12/19/23 21:30 12/19/23 21:23 12/19/23 20:00 12/19/23 16:08 12/19/23 16:00 12/19/23 15:57 12/19/23 11:56 12/19/23 11:47 12/19/23 11:10 Intake and Output 12/19/23 12/20/23 12/20/23 22:59 06:59 14:59 Intake Total 1076 100 Balance 1076 100 Intake: Oral 1076 100 Other: Voiding Method Urinal Urinal Urinal # Voids 0 0 # Bowel Movements 0 GENERAL DESCRIPTION: Middle-aged male lying in bed, no distress. No tachypnea or accessory muscle of respiration use. HEENT: Shows Pallor , no scleral icterus. Oral mucous membrane is dry. No pharyngeal erythema or thrush NECK: Trachea central, no thyromegaly. LUNGS: Unlabored breathing. Clear to auscultation anteriorly. No wheeze or crackle. HEART: S1, S2, regular rate and rhythm. No loud murmur ABDOMEN: Soft, mild tenderness , no drainage around the PD catheter site EXTREMITIES: No edema of feet. SKIN: No rash, no masses palpable. NEUROLOGICAL: The patient is awake, alert, oriented x3, mood and affect normal. Results CBC & Chem 7: 12/20/23 08:54 12/20/23 08:54 Labs: Abnormal Lab Results - Last 24 Hours (Table) 12/19/23 12/19/23 12/20/23 Range/Units 11:34 20:03 05:41 RBC (4.30-5.90) m/uL Hgb (13.0-17.5) gm/dL Hct (39.0-53.0) % Neutrophils # (1.3-7.7) k/uL Sodium (137-145) mmol/L Carbon Dioxide (22-30) mmol/L BUN (9-20) mg/dL Creatinine (0.66-1.25) mg/dL Glucose (74-99) mg/dL POC Glucose (mg/dL) 127 H 131 H 157 H (70-110) mg/dL Calcium (8.4-10.2) mg/dL Fluid Appearance (Clear) 12/20/23 12/20/23 12/20/23 Range/Units 07:06 08:54 08:54 RBC 3.21 L (4.30-5.90) m/uL Hgb 9.4 L (13.0-17.5) gm/dL Hct 29.9 L (39.0-53.0) % Neutrophils # 8.6 H (1.3-7.7) k/uL Sodium 135 L (137-145) mmol/L Carbon Dioxide 31 H (22-30) mmol/L BUN 67 H (9-20) mg/dL Creatinine 3.03 H (0.66-1.25) mg/dL Glucose 212 H (74-99) mg/dL POC Glucose (mg/dL) (70-110) mg/dL Calcium 8.2 L (8.4-10.2) mg/dL Fluid Appearance Cloudy A (Clear) 12/20/23 Range/Units 09:17 RBC (4.30-5.90) m/uL Hgb (13.0-17.5) gm/dL Hct (39.0-53.0) % Neutrophils # (1.3-7.7) k/uL Sodium (137-145) mmol/L Carbon Dioxide (22-30) mmol/L BUN (9-20) mg/dL Creatinine (0.66-1.25) mg/dL Glucose (74-99) mg/dL POC Glucose (mg/dL) 256 H (70-110) mg/dL Calcium (8.4-10.2) mg/dL Fluid Appearance (Clear) Microbiology - Last 24 Hours (Table) 12/16/23 17:52 Blood Culture - Preliminary Blood 12/16/23 17:33 Blood Culture - Preliminary Blood Assessment and Plan (1) Peritoneal dialysis catheter infection Current Visit: Yes Status: Acute Code(s): T85.71XA - INFECT/INFLM REACTION DUE TO PERITON DIALYSIS CATHETER, INIT SNOMED Code(s): 569540859 (2) Peritonitis Current Visit: Yes Status: Acute Code(s): K65.9 - PERITONITIS, UNSPECIFIED SNOMED Code(s): 35718562 Plan: 1patient with abdominal pain cloudy peritoneal fluid concerning for PD catheter associated peritonitis nursing staff mention this morning some erythema around the catheter site however I do not appreciate any or any drainage we will likely need to cover for the gram-positive skin lindsay to be the likely pathogen gram- negative infection less likely would not have excluded 2blood culture has been obtained and currently waiting for the PD fluid analysis. 3vancomycin pharmacy to dose systemically and continue with the Fortaz and the dialysis fluid while waiting for the culture to finalize Family questions and concerns answered We will follow on clinical condition and cultures to further adjust medication if needed Thank you for this consultation we will follow the patient along with you Dictation was produced using [employer] dictation software. please excuse any grammatical, word or spelling errors.
[2023-12-21 06:22] LABS: Glucose,Whole Blood 226 mg/dL (70-110)
[2023-12-21] MEDS ORDERED: VANCOMYCIN 2,000 MG in SODIUM CHLORIDE 0.9% 500 ML 500 ML IVPB ONE (09:00)
--- NOTE | 2023-12-21 11:40 | P.PN ---
Subjective Patient is seen in follow-up for end-stage renal disease. He is maintained on peritoneal dialysis. On intraperitoneal antibiotics which was started December 20, 2023. No abdominal pain. States dialysate was not cloudy this morning. Vital signs are stable. General: No acute distress. HEENT: Head exam is unremarkable. On nasal cannula. LUNGS: No audible rhonchi or wheezes. HEART: Rate and Rhythm are regular. ABDOMEN: Obese, nontender. EXTREMITITES: 1+ edema. BKA noted. Objective - Vital Signs Vital signs: Vital Signs Temp 97.2 F L 12/21/23 08:19 Pulse 76 12/21/23 08:50 Resp 16 12/21/23 08:19 BP 123/71 12/21/23 08:19 Pulse Ox 96 12/21/23 08:19 FiO2 45 12/21/23 04:07 Intake & Output 12/20/23 12/21/23 12/21/23 18:59 06:59 18:59 Intake Total 1120 250 Output Total 700 600 100 Balance 420 -600 150 Intake: IV 10 Invasive Line 1 10 Oral 1120 240 Output: Urine 700 600 Emesis 100 Other: Voiding Method Urinal Urinal Urinal # Voids 1 2 - Labs CBC & Chem 7: 12/20/23 08:54 12/20/23 08:54 Labs: Abnormal Lab Results - Last 24 Hours (Table) 12/20/23 12/20/23 12/20/23 Range/Units 11:38 16:44 19:54 POC Glucose (mg/dL) 182 H 277 H 230 H (70-110) mg/dL 12/21/23 Range/Units 06:18 POC Glucose (mg/dL) 226 H (70-110) mg/dL Microbiology - Last 24 Hours (Table) 12/20/23 07:06 Gram Stain - Preliminary Peritoneal Fluid Body Fluid Culture - Preliminary Assessment and Plan Plan: Assessment: 1. End-stage renal disease maintained on peritoneal dialysis. 2. Volume overload. Improved. 3. Hypertension with chronic kidney disease. Stable. 4. Diabetes mellitus. 5. Chronic kidney disease mineral bone disease. 6. PD associated peritonitis. Dialysate WBC count 14,234 with PMN count of 95%. Started on intraperitoneal vancomycin and Fortaz December 20, 2023. Also on IV vancomycin per ID due to possible cellulitis. 7. Anemia of chronic kidney disease. Plan: Maintain current PD exchanges. Advised patient to maintain low-salt diet and fluid restriction of less than 50 ounces per day upon discharge. Blood sugar control. Maintain intraperitoneal antibiotics -1 g intraperitoneal vancomycin and Fortaz started December 20, 2023. Maintain Fortaz daily. Repeat dialysate cell count culture today. Add Aranesp.
[2023-12-21 11:51] LABS: Glucose,Whole Blood 118 mg/dL (70-110)
--- NOTE | 2023-12-21 11:55 | P.PN ---
Subjective Progress Note Date: 12/21/23 Principal diagnosis: Acute on chronic hypoxic respiratory failure secondary to fluid overload This is a 58-year-old male patient who is very well-known to me. The patient is morbidly obese with a body mass index of 60. The patient has obstructive sleep apnea maintained on BiPAP on outpatient basis. His baseline AHI 78.3 and the patient has been maintained on treatment. He also has advanced COPD, end-stage renal disease and he undergoes peritoneal dialysis at home. He has peripheral vascular disease and previous BKA of the left lower extremity, coronary disease, diabetes mellitus type 2, hypertension hyperlipidemia and previous history of s moking. The patient came into the hospital because of progressive worsening shortness of breath. He was undergoing peritoneal dialysis without any significant improvement in his respiratory status. Based on that, the patient ended up coming into the emergency department for further evaluation. Initial chest x-ray was consistent with cardiomegaly and pulm vascular congestion and small effusions consistent with CHF and fluid overload. Note that his last echocardiogram that was done back in 2019 showed a preserved LV function and the patient was found to have an ejection fraction of 50 to 55% back then. Rest of the blood work shows a WBC count of 8.8 with a hemoglobin 10.5 and a platelet count of 235. Normal coagulation profile. BUN is 53 with a creatinine of 2.6. Electrolytes are stable with a potassium level of 5.4. Liver function tests are essentially within normal limits. proBNP level is 5416 and troponin is less than 0.01. The patient has no altered mentation. No chest pain. He did not utilize BiPAP overnight to the emergency department and the patient is currently off the BiPAP maintained on oxygen by nasal cannula at 3 L. The patient was also started on diuretics. The patient was started on IV Lasix and is currently receiving 60 mg every 12 hours and the patient is producing excellent amount of urine output in combination with Zaroxolyn. He seems to be in negative fluid balance. Awaiting nephrology consultation. No other significant events otherwise for now. He is free of any chest pain. No altered mentation. His EKG showed normal sinus rhythm along with old Q waves involving the anteroseptal leads. 12/18/2023, the patient is breathing much easier. He is currently on room air oxygen with a pulse ox of 92%. He was diuresed adequately. The patient was on a combination of Lasix 60 mg for 12 hours and the patient was also on Zaroxolyn. He is undergoing peritoneal dialysis. He utilized the BiPAP overnight at a pressure of 10 over 5 cm of water. Electrolytes from today show a potassium level of 5.1, BUN 66 with a creatinine of 2.7. Rest of the medications remain unchanged. BP is under better control. He is currently on metoprolol XL 100 mg p.o. daily, Norvasc 5 mg p.o. twice a day in addition to his diuretics. Hydralazine is also being administered a dose of 50 mg p.o. 4 times daily and Imdur 60 mg p.o. daily. He is undergoing PD with 2.5% dextrose solution every 6 hours. Echocardiogram was ordered. Patient was evaluated today on 12/19/2023, patient is feeling better, breathing easier, remains on diuretics, remains on bronchodilators, patient is receiving Lasix 60 mg every 12 hours, he is also on Zaroxolyn. Undergoing peritoneal dialysis. Patient is on BiPAP at night with a pressure of 10/5. Labs today showed relatively normal basic metabolic profile BUN is 65 creatinine 2.98 follow-up chest x-ray is pending, last chest x-ray showed evidence of pulmonary edema. Patient was reevaluated today on 12/20/2023, patient is not doing well today, apparently he had intermittent episodes of confusion last night, patient was found to have cloudy dialysate this morning, and fluid analysis suggestive of peritonitis, the fluid from the peritoneal cavity/fluid dialysate showed 14,254 WBC count, and 95% PMNs. This is clearly consistent with acute peritonitis from his peritoneal dialysis. Patient was started on intraperitoneal Fortaz, and IV vancomycin. His WBC count today is 10.2 hemoglobin 9.4 basic metabolic profile is normal BUN is 67 creatinine 3.0 Patient was seen today on 12/21/2023, patient is doing well, on antibiotics for his peritonitis, patient is on peritoneal dialysis and he developed acute perito nitis. Pulmonary mauricio he is doing well, no cough no wheezing no shortness of breath, patient has very minimal abdominal discomfort, is at bedside. Patient has end-stage renal disease, on peritoneal dialysis, now with peritonitis, receiving intraperitoneal Fortaz. And is also on IV vancomycin Objective - Vital Signs Vital signs: Vital Signs Temp 97.2 F L 12/21/23 08:19 Pulse 76 12/21/23 08:50 Resp 16 12/21/23 08:19 BP 123/71 12/21/23 08:19 Pulse Ox 96 12/21/23 08:19 FiO2 45 12/21/23 04:07 Intake & Output 12/20/23 12/21/23 12/21/23 18:59 06:59 18:59 Intake Total 1120 250 Output Total 700 600 100 Balance 420 -600 150 Intake: IV 10 Invasive Line 1 10 Oral 1120 240 Output: Urine 700 600 Emesis 100 Other: Voiding Method Urinal Urinal Urinal # Voids 1 2 - Exam General: Reveals a 58-year-old male in no distress, on 2 L nasal cannula O2 sat is 99% Skin: Skin is warm and dry and no rashes or lesions are noted. Eye: Pupils are equal, round and reactive to light, extra-ocular movements are intact; there is normal conjunctiva bilaterally. Ears, nose, mouth and throat: There are moist mucous membranes and no oral lesions. Neck: The neck is supple, there is no tenderness or JVD. Cardiovascular: There is a regular rate and rhythm. No murmur, rub or gallop is appreciated. Respiratory: Crackles and rhonchi noted bilaterally more so on forced expiratory maneuver. Gastrointestinal: Soft, non-distended, non-tender abdomen without masses or organomegaly noted. There is no rebound or guarding present. Bowel sounds are unremarkable. Back: There is no tenderness to palpation in the midline. There is no obvious deformity. Musculoskeletal: There is a left below-knee amputation. 1+ right lower extremity edema Neurological: CN II-XII intact, Cranial nerves III through XII are intact. There are no obvious motor or sensory deficits. Coordination appears grossly intact. Speech is normal. Psychiatric: Cooperative, appropriate mood & affect, normal judgment. - Labs CBC & Chem 7: 12/20/23 08:54 12/20/23 08:54 Labs: Abnormal Lab Results - Last 24 Hours (Table) 12/20/23 12/20/23 12/21/23 Range/Units 16:44 19:54 06:18 POC Glucose (mg/dL) 277 H 230 H 226 H (70-110) mg/dL 12/21/23 Range/Units 11:49 POC Glucose (mg/dL) 118 H (70-110) mg/dL Microbiology - Last 24 Hours (Table) 12/20/23 07:06 Gram Stain - Preliminary Peritoneal Fluid Body Fluid Culture - Preliminary Assessment and Plan Assessment: Impression: Acute peritonitis based on abnormal dialysate, the findings are highly consistent with acute peritonitis. Acute on chronic hypoxic respiratory failure essentially due to fluid overload. Remains on diuretics. Patient has acute diastolic congestive heart failure. Shortness of breath secondary to above, clinically improving End-stage renal disease currently undergoing peritoneal dialysis, 2.5 dextrose solution 4 times a day Morbid obesity Obstructive sleep apnea, severe with a AHI of 78 Advanced COPD Peripheral vascular disease with previous BKA on the left End-stage renal disease presently on peritoneal dialysis Coronary artery disease Diabetes mellitus, with a component of steroid-induced hyperglycemia the patient was given IV Solu-Medrol in the emergency department. 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 Continue diuretics Continue peritoneal dialysis Continue bronchodilators for COPD Will continue to follow. Prognosis is guarded. Time with Patient: Less than 30
[2023-12-21] MEDS: CEFTAZIDIME INTRAPERIT SCH (12:12)
[2023-12-21] MEDS: DIALYSIS DEX INTRAPERIT SCH (12:12)
[2023-12-21] MEDS: ONDANSETRON 4 MG/2 ML VIAL IVP PRN (12:22)
[2023-12-21] MEDS: DARBEPOETIN ALFA 40 MCG/0.4 ML SYRINGE SQ SCH (12:23)
--- NOTE | 2023-12-21 12:36 | P.PN ---
Subjective Progress Note Date: 12/21/23 Principal diagnosis: Reason for vomitus PD catheter associated peritonitis Patient is a 58-year-old male with a past medical history significant for coronary artery disease COPD diabetes mellitus hypertension hyperlipidemia end- stage renal renal disease on peritoneal dialysis for about a year presenting to the hospital with shortness of breath patient subsequent developing abdominal pain noticed to have a cloudy peritoneal fluid, some Erythema around the dialysis catheter concerning for PD catheter associated peritonitis. On today's evaluation that is 12/21/2023, patient has been afebrile, patient is breathing comfortably and is currently on 2 L nasal cannula oxygen, patient denies having any significant cough no chest pain shortness of breath, patient denies nausea vomiting or diarrhea and no abdominal pain. No labs obtained today patient peritoneal fluid was cloudy with 14,234 WBC predominantly PMNs, cultures pending Objective - Vital Signs Vital signs: Vital Signs Temp 97.2 F L 12/21/23 08:19 Pulse 76 12/21/23 08:50 Resp 16 12/21/23 08:19 BP 123/71 12/21/23 08:19 Pulse Ox 96 12/21/23 08:19 FiO2 45 12/21/23 04:07 Intake & Output 12/20/23 12/21/23 12/21/23 18:59 06:59 18:59 Intake Total 1120 250 Output Total 700 600 Balance 420 -600 250 Intake: IV 10 Invasive Line 1 10 Oral 1120 240 Output: Urine 700 600 Other: Voiding Method Urinal Urinal # Voids 1 2 - Exam GENERAL DESCRIPTION: Middle-aged male lying in bed in no distress RESPIRATORY SYSTEM: Unlabored breathing , decreased breath sounds at bases HEART: S1 S2 regular rate and rhythm , ABDOMEN: Soft , mild distention but no tenderness EXTREMITIES: No edema feet - Labs CBC & Chem 7: 12/20/23 08:54 12/20/23 08:54 Labs: Abnormal Lab Results - Last 24 Hours (Table) 12/20/23 12/20/23 12/20/23 Range/Units 07:06 11:38 16:44 POC Glucose (mg/dL) 182 H 277 H (70-110) mg/dL Fluid Appearance Cloudy A (Clear) 12/20/23 12/21/23 Range/Units 19:54 06:18 POC Glucose (mg/dL) 230 H 226 H (70-110) mg/dL Fluid Appearance (Clear) Microbiology - Last 24 Hours (Table) 12/20/23 07:06 Gram Stain - Preliminary Peritoneal Fluid Body Fluid Culture - Preliminary Assessment and Plan (1) Peritoneal dialysis catheter infection Current Visit: Yes Status: Acute Code(s): T85.71XA - INFECT/INFLM REACTION DUE TO PERITON DIALYSIS CATHETER, INIT SNOMED Code(s): 177275470 (2) Peritonitis Current Visit: Yes Status: Acute Code(s): K65.9 - PERITONITIS, UNSPECIFIED SNOMED Code(s): 76690951 Plan: 1patient with abdominal pain cloudy peritoneal fluid concerning for PD catheter associated peritonitis nursing staff mention this morning some erythema around the catheter site however I do not appreciate any or any drainage we will likely need to cover for the gram-positive skin lindsay to be the likely pathogen gram- negative infection less likely would not have excluded 2patient did have significant elevated white count in the peritoneal fluid, peritoneal fluid and blood cultures currently pending 3patient to continue with vancomycin pharmacy to dose systemically and Fortaz intraperitoneally while waiting for the culture to finalize Case discussed with the highway construction inspector on the floor Dictation was produced using [employer] dictation software. please excuse any grammatical, word or spelling errors. Time with Patient: Less than 30
--- NOTE | 2023-12-21 13:38 | P.PN ---
Subjective Progress Note Date: 12/21/23 HISTORY OF PRESENTING ILLNESS 89-year-old presents to the hospital because of symptoms of shortness of breath at rest along with orthopnea and proximal nocturnal dyspnea. Patient is a end- stage renal disease requiring peritoneal dialysis. He reports that he has been compliant to his medication. He takes torsemide 20 mg twice daily and metolazone 5 mg at home. On admission his BNP was 5000., normal troponins BP 174/96, heart rate 82 bpm, ECG shows sinus rhythm with nonspecific IVCD Chest x-ray shows bilateral pulm congestion with small right pleural effusion. December 18, 2023 Patient reports that his urine output has improved on current regimen. His blood pressure is better controlled. He denies any chest pain. He reports his shortness of breath is better. 12/18 Patient is seen today in follow-up. Blood pressure 118/75, heart rate in the 60s and 70s, pulse ox 94% on 2 L nasal cannula. Repeat blood work reveals sodium 136, potassium 4.6, BUN 65 creatinine 2.98. Patient is followed by nephrology and maintained on peritoneal dialysis. Echocardiogram ordered and echocardiogram scheduled in the office will be canceled. 12/19 Patient is seen today in follow-up. He has been diagnosed with peritonitis and to start on IV and intraperitoneal antibiotics. Blood pressure 127/74, heart r ate in the 80s, pulse ox 99% on 2 L nasal cannula. Repeat blood work reveals hemoglobin of 9.4. Sodium 135, potassium 4.8, BUN 67 and creatinine 3.03. Chest x-ray performed yesterday afternoon revealed pulmonary venous congestion without overt failure. Echocardiogram limited study revealed EF of 45%. No pericardial effusion. 12/20 Patient is seen today in follow-up. He has been started on IV antibiotics as well as intraperitoneal antibiotics for peritonitis. He denies having any chest pain. Patient seems to be more energetic today from yesterday. He seemed quite tired yesterday. He denies having any chest pain, no dizziness no lightheadedness, no palpitations. Blood pressure 116/66, heart rate 71, pulse ox 97% on 2 L nasal cannula. PHYSICAL EXAMINATION Vital signs reviewed. Head: Normocephalic. Eyes: Sclerae nonicteric. Neck: Brisk carotid upstroke, no jugular venous distention. Lungs: Mild crackles in bilateral lung bases. Heart: Regular rate and rhythm, S1-S2, no S3, no murmur or rub. Abdomen: Soft nontender, positive bowel sounds. Extremities: 1+ pitting edema right leg. left BKA, right third fourth fifth toe amputation Neuro: Alert, oriented, no focal deficits. ASSESSMENT Acute HFrEF exacerbation Poorly controlled hypertension ESRD on peritoneal dialysis Hyperkalemia Prior history of COPD Prior history of CAD s/p PCI Hyperlipidemia Type 2 diabetes PAD s/p left BKA, and right third fourth fifth toe amputation Peritonitis PLAN Continue aspirin 81 mg, amlodipine 5 mg twice daily, atorvastatin 40 mg daily, hydralazine 75 mg 4 times daily, Imdur 60 mg daily, metolazone 5 mg daily, metoprolol succinate 100 mg daily. Continue patient on Lasix 60 mg IV twice daily Do not resume clonidine on discharge No medication changes made today. Cardiology will sign off this case and follow on an as-needed basis. Please reconsult for any new concerns. Patient may follow-up in the office in one to 2 weeks postdischarge. Nurse practitioner note has been reviewed, I agree with documented findings and plan of care. Patient was seen and examined. Objective - Vital Signs Vital signs: Vital Signs Temp 97.2 F L 12/21/23 08:19 Pulse 76 12/21/23 08:50 Resp 16 12/21/23 08:19 BP 123/71 12/21/23 08:19 Pulse Ox 96 12/21/23 08:19 FiO2 45 12/21/23 04:07 Intake & Output 12/20/23 12/21/23 12/21/23 18:59 06:59 18:59 Intake Total 1120 250 Output Total 700 600 Balance 420 -600 250 Intake: IV 10 Invasive Line 1 10 Oral 1120 240 Output: Urine 700 600 Other: Voiding Method Urinal Urinal # Voids 1 2 - Labs CBC & Chem 7: 12/20/23 08:54 12/20/23 08:54 Labs: Abnormal Lab Results - Last 24 Hours (Table) 12/20/23 12/20/23 12/20/23 Range/Units 07:06 11:38 16:44 POC Glucose (mg/dL) 182 H 277 H (70-110) mg/dL Fluid Appearance Cloudy A (Clear) 12/20/23 12/21/23 Range/Units 19:54 06:18 POC Glucose (mg/dL) 230 H 226 H (70-110) mg/dL Fluid Appearance (Clear) Microbiology - Last 24 Hours (Table) 12/20/23 07:06 Gram Stain - Preliminary Peritoneal Fluid Body Fluid Culture - Preliminary
--- NOTE | 2023-12-21 14:50 | P.PN ---
Subjective Progress Note Date: 12/21/23 58-year-old male came with complaints of shortness of breath orthopnea, patient has pulm edema patient is peritoneal dialysis patient with chronic kidney disease, end-stage renal disease. Patient states he is compliant with his medications and his diet patient was on torsemide 20 mg twice a day along with metolazone 5 mg on daily basis at home. Patient was started on IV Lasix for 40 mg every 8 hourly with good urine output. He does not have any fever chills chest x-ray did not show any pneumonia did show pulm edema patient's BNP is around 5000 12/18/2023 Patient is evaluated in follow up today on the medical floor. Patient continues with scattered wheezing and is continued on scheduled updrafts as well as symbicort. Pulmonary following this. Continues on IV lasix does have improvement in his shortness of breath and is currently on room air. Maintained on peritoneal dialysis per nephrology. Sodium level 135 today, BUN 66, creatinine 2.70. 12/19/2023 Patient is evaluated today on the medical floor in follow up. Less short of breath and the scattered wheezing has resolved at this time. Patient continues with lower extremity edema. He remains on IV lasix 60 mg Q12 hour and will continue for the next 24 hours. Patient is using BiPAP at HS. He is continued on peritoneal dialysis per nephrology. Sodium level is 136, BUN of 65 and creatinine 2.98. Follow up chest xray today reveals pulmonary venous congestion without overt failure. 12/20/2023 Patient evaluated today he is lethargic. Patient with his previous 2 CAPD exchanges overnight noted to have cloudy return and abdominal pain with dialysis. Nephrology has added fortaz and vanco to the solution. Blood cultures have been obtained. His echocardiogram has come back revealing an EF of around 45%. He is continued on IV lasix. 12/21/2023 Is evaluated today in follow-up on the medical floor. He is more awake alert oriented. Blood cultures are currently pending. He continues on peritoneal dialysis every 6 hours and continue with added antibiotic and also on vancomycin per pharmacy. Family at bedside all questions were answered. Review of Systems Constitutional: Denied any fatigue denied any fever. Cardio vascular: denied any chest pain, palpitations Gastrointestinal: denied any nausea, vomiting, diarrhea Pulmonary: Denied any shortness of breath cough Neurologic denied any new focal deficits All inpatient medications were reviewed and appropriate changes in these medications as dictated in the interval history and assessment and plan. PHYSICAL EXAMINATION: GENERAL: The patient is alert and oriented x3, not in any acute distress. Well developed, well nourished. Lethargic. HEENT: Pupils are round and equally reacting to light. EOMI. No scleral icterus. No conjunctival pallor. Normocephalic, atraumatic. No pharyngeal erythema. No thyromegaly. CARDIOVASCULAR: S1 and S2 present. No murmurs, rubs, or gallops. PULMONARY: Lungs are clear to auscultation no wheezing noted today. ABDOMEN: Soft, nontender, nondistended, normoactive bowel sounds. No palpable organomegaly. MUSCULOSKELETAL: No joint swelling or deformity. EXTREMITIES: No cyanosis, clubbing, or +1 pitting LE edema. Patient has an ampu tation on the left side as well as toe amputation on the right side NEUROLOGICAL: Gross neurological examination did not reveal any focal deficits. SKIN: No rashes. Assessment and plan -Congestive heart failure with reduced ejection fraction, acute exacerbation, continue with IV Lasix, input and output monitoring and electrolyte monitoring. -End-stage disease on peritoneal dialysis which is managed by nephrology. -Altered mental status secondary to acute toxic and metabolic encephalopathy fr om infection and renal dysfunction -Concern for bacterial peritonitis antibiotics have been added to solution and blood cultures taken. ID consulted. -Hyperkalemia secondary to kidney failure improved. -COPD without any significant exacerbation will not need any systemic steroids continues on updrafts scheduled and as needed, maintained on symbicort. -Coronary artery disease -Hyperlipidemia -Hypertension remain off clonidine. -Sleep apnea -Peripheral artery disease with amputations as mentioned above in the past below-knee on the left side and a third fourth and fifth toe amputation on the r ight side -Type 2 diabetes mellitus continue accuchecks ACHS and sliding scale insulin resumed on home dose 70/30 mix. DVT prophylaxis: Subcutaneous heparin Plan Continue on IV Lasix intake and output monitoring Cardiology recommended to continue current medications and will sign off and follow-up in the office in 2 weeks. Continues on peritoneal dialysis every 6 hours with added vancomycin and ceftazidime. Patient is also on IV vancomycin per pharmacy. Blood cultures are currently pending at this time as well as peritoneal fluid culture. Repeat blood work in the morning The impression and plan of care has been dictated by Sabine Kearns Nurse Practitioner as directed. Dr. Yfn MD I have performed a history and physical examination and medical decision making of this patient, discussed the same with the dictator, and agree with the dictators assessment and plan as written, documented as a scribe. Based on total visit time, I have performed more than 50% of this visit. Objective - Vital Signs Vital signs: Vital Signs Temp 97.7 F 12/21/23 12:13 Pulse 71 12/21/23 12:13 Resp 20 12/21/23 12:13 BP 166/66 12/21/23 12:13 Pulse Ox 97 12/21/23 12:13 FiO2 45 12/21/23 04:07 Intake & Output 12/20/23 12/21/23 12/21/23 18:59 06:59 18:59 Intake Total 1120 260 Output Total 700 600 100 Balance 420 -600 160 Intake: IV 20 Invasive Line 1 20 Oral 1120 240 Output: Urine 700 600 Emesis 100 Other: Voiding Method Urinal Urinal Urinal # Voids 1 2 - Labs CBC & Chem 7: 12/20/23 08:54 12/20/23 08:54 Labs: Abnormal Lab Results - Last 24 Hours (Table) 12/20/23 12/20/23 12/21/23 Range/Units 16:44 19:54 06:18 POC Glucose (mg/dL) 277 H 230 H 226 H (70-110) mg/dL 12/21/23 Range/Units 11:49 POC Glucose (mg/dL) 118 H (70-110) mg/dL Microbiology - Last 24 Hours (Table) 12/20/23 07:06 Gram Stain - Preliminary Peritoneal Fluid Body Fluid Culture - Preliminary Assessment and Plan Time with Patient: Less than 30
[2023-12-21 16:38] LABS: Glucose,Whole Blood 146 mg/dL (70-110)
[2023-12-21 19:58] LABS: Appearance,BF Hazy (Clear)
[2023-12-21 20:15] LABS: Glucose,Whole Blood 219 mg/dL (70-110)
[2023-12-22 05:59] LABS: Glucose,Whole Blood 210 mg/dL (70-110)
[2023-12-22 08:48] LABS: Basophils % (A) 0 %; Eosinophils # (A) 0.2 k/uL (0-0.7); Eosinophils % (A) 2 %; HCT 30.6 % (39.0-53.0); HGB 9.4 gm/dL (13.0-17.5); Hypochromasia Slight; Lymphocytes % (A) 13 %; MCH 28.9 pg (25.0-35.0); MCHC 30.8 g/dL (31.0-37.0); MCV 93.8 fL (80.0-100.0); Mean Platelet Volume 9.1; Monocytes # (A) 0.5 k/uL (0-1.0); Monocytes % (A) 7 %; Neutrophils % (A) 77 %; Platelet Count 246 k/uL (150-450); RBC 3.26 m/uL (4.30-5.90); RDW 14.1 % (11.5-15.5); WBC 7.7 k/uL (3.8-10.6)
[2023-12-22] MEDS: LACTULOSE 20 GM/30 ML CUP PO PRN (09:56)
--- NOTE | 2023-12-22 10:55 | P.PN ---
Subjective Patient is seen in follow-up for end-stage renal disease. He is maintained on peritoneal dialysis. On intraperitoneal antibiotics which was started December 20, 2023. No abdominal pain. States dialysate has been clear. present at bedside. Vital signs are stable. General: No acute distress. HEENT: Head exam is unremarkable. On nasal cannula. LUNGS: No audible rhonchi or wheezes. HEART: Rate and Rhythm are regular. ABDOMEN: Obese, nontender. EXTREMITITES: Trace edema. BKA noted. Objective - Vital Signs Vital signs: Vital Signs Temp 97.6 F 12/22/23 09:53 Pulse 69 12/22/23 09:53 Resp 18 12/22/23 09:53 BP 148/80 12/22/23 09:53 Pulse Ox 97 12/22/23 09:53 FiO2 45 12/21/23 04:07 Intake & Output 12/21/23 12/22/23 12/22/23 18:59 06:59 18:59 Intake Total 378 20 10 Output Total 101 600 Balance 277 -580 10 Weight 82.5 kg Intake: IV 20 20 10 Invasive Line 1 20 10 Invasive Line 3 10 10 Oral 358 0 Output: Urine 500 Emesis 101 100 Other: Voiding Method Urinal Urinal Urinal # Voids 2 # Bowel Movements 0 - Labs CBC & Chem 7: 12/22/23 08:18 12/20/23 08:54 Labs: Abnormal Lab Results - Last 24 Hours (Table) 12/21/23 12/21/23 12/21/23 Range/Units 11:49 13:07 16:36 RBC (4.30-5.90) m/uL Hgb (13.0-17.5) gm/dL Hct (39.0-53.0) % MCHC (31.0-37.0) g/dL POC Glucose (mg/dL) 118 H 146 H (70-110) mg/dL Fluid Appearance Hazy A (Clear) 12/21/23 12/22/23 12/22/23 Range/Units 20:13 05:58 08:18 RBC 3.26 L (4.30-5.90) m/uL Hgb 9.4 L (13.0-17.5) gm/dL Hct 30.6 L (39.0-53.0) % MCHC 30.8 L (31.0-37.0) g/dL POC Glucose (mg/dL) 219 H 210 H (70-110) mg/dL Fluid Appearance (Clear) Microbiology - Last 24 Hours (Table) 12/20/23 07:06 Gram Stain - Preliminary Peritoneal Fluid Body Fluid Culture - Preliminary 12/16/23 17:52 Blood Culture - Final Blood 12/16/23 17:33 Blood Culture - Final Blood 12/21/23 13:07 Gram Stain - Preliminary Dialysate 12/20/23 08:54 Blood Culture - Preliminary Blood Assessment and Plan Plan: Assessment: 1. End-stage renal disease maintained on peritoneal dialysis. 2. Volume overload. Improved. 3. Hypertension with chronic kidney disease. Stable. 4. Diabetes mellitus. 5. Chronic kidney disease mineral bone disease. 6. PD associated peritonitis. Dialysate WBC count 14,234 with PMN count of 95%; WBC count 863 with 66% PMNs dated December 21, 2023. Started on intraperitoneal vancomycin and Fortaz December 20, 2023. Also on IV vancomycin per ID due to possible cellulitis. 7. Anemia of chronic kidney disease. On Aranesp. Plan: Maintain current PD exchanges. Advised patient to maintain low-salt diet and fluid restriction of less than 50 ounces per day upon discharge. Blood sugar control. Maintain intraperitoneal antibiotics -1 g intraperitoneal vancomycin and Fortaz started December 20, 2023. Maintain Fortaz daily. Repeat dialysate cell count culture today. Hold gabapentin.
[2023-12-22 11:39] LABS: Glucose,Whole Blood 161 mg/dL (70-110)
[2023-12-22 13:51] LABS: African American GFR (CKD) 24 (>60 ml/min/1.73 sqM); Anion Gap 4 mmol/L; Blood Urea Nitrogen 60 mg/dL (9-20); Calcium 8.3 mg/dL (8.4-10.2); Carbon Dioxide 34 mmol/L (22-30); Chloride 98 mmol/L (98-107); Glucose 170 mg/dL (74-99); Non-African American GFR(CKD) 21 (>60 ml/min/1.73 sqM); Potassium 4.2 mmol/L (3.5-5.1); Sodium 136 mmol/L (137-145)
[2023-12-22] MEDS: bisacodyL 10 MG SUPP RECTAL STA (13:54)
--- NOTE | 2023-12-22 14:04 | P.PN ---
Subjective Progress Note Date: 12/22/23 Principal diagnosis: Acute on chronic hypoxic respiratory failure secondary to fluid overload This is a 58-year-old male patient who is very well-known to me. The patient is morbidly obese with a body mass index of 60. The patient has obstructive sleep apnea maintained on BiPAP on outpatient basis. His baseline AHI 78.3 and the patient has been maintained on treatment. He also has advanced COPD, end-stage renal disease and he undergoes peritoneal dialysis at home. He has peripheral vascular disease and previous BKA of the left lower extremity, coronary disease, diabetes mellitus type 2, hypertension hyperlipidemia and previous history of s moking. The patient came into the hospital because of progressive worsening shortness of breath. He was undergoing peritoneal dialysis without any significant improvement in his respiratory status. Based on that, the patient ended up coming into the emergency department for further evaluation. Initial chest x-ray was consistent with cardiomegaly and pulm vascular congestion and small effusions consistent with CHF and fluid overload. Note that his last echocardiogram that was done back in 2019 showed a preserved LV function and the patient was found to have an ejection fraction of 50 to 55% back then. Rest of the blood work shows a WBC count of 8.8 with a hemoglobin 10.5 and a platelet count of 235. Normal coagulation profile. BUN is 53 with a creatinine of 2.6. Electrolytes are stable with a potassium level of 5.4. Liver function tests are essentially within normal limits. proBNP level is 5416 and troponin is less than 0.01. The patient has no altered mentation. No chest pain. He did not utilize BiPAP overnight to the emergency department and the patient is currently off the BiPAP maintained on oxygen by nasal cannula at 3 L. The patient was also started on diuretics. The patient was started on IV Lasix and is currently receiving 60 mg every 12 hours and the patient is producing excellent amount of urine output in combination with Zaroxolyn. He seems to be in negative fluid balance. Awaiting nephrology consultation. No other significant events otherwise for now. He is free of any chest pain. No altered mentation. His EKG showed normal sinus rhythm along with old Q waves involving the anteroseptal leads. 12/18/2023, the patient is breathing much easier. He is currently on room air oxygen with a pulse ox of 92%. He was diuresed adequately. The patient was on a combination of Lasix 60 mg for 12 hours and the patient was also on Zaroxolyn. He is undergoing peritoneal dialysis. He utilized the BiPAP overnight at a pressure of 10 over 5 cm of water. Electrolytes from today show a potassium level of 5.1, BUN 66 with a creatinine of 2.7. Rest of the medications remain unchanged. BP is under better control. He is currently on metoprolol XL 100 mg p.o. daily, Norvasc 5 mg p.o. twice a day in addition to his diuretics. Hydralazine is also being administered a dose of 50 mg p.o. 4 times daily and Imdur 60 mg p.o. daily. He is undergoing PD with 2.5% dextrose solution every 6 hours. Echocardiogram was ordered. Patient was evaluated today on 12/19/2023, patient is feeling better, breathing easier, remains on diuretics, remains on bronchodilators, patient is receiving Lasix 60 mg every 12 hours, he is also on Zaroxolyn. Undergoing peritoneal dialysis. Patient is on BiPAP at night with a pressure of 10/5. Labs today showed relatively normal basic metabolic profile BUN is 65 creatinine 2.98 follow-up chest x-ray is pending, last chest x-ray showed evidence of pulmonary edema. Patient was reevaluated today on 12/20/2023, patient is not doing well today, apparently he had intermittent episodes of confusion last night, patient was found to have cloudy dialysate this morning, and fluid analysis suggestive of peritonitis, the fluid from the peritoneal cavity/fluid dialysate showed 14,254 WBC count, and 95% PMNs. This is clearly consistent with acute peritonitis from his peritoneal dialysis. Patient was started on intraperitoneal Fortaz, and IV vancomycin. His WBC count today is 10.2 hemoglobin 9.4 basic metabolic profile is normal BUN is 67 creatinine 3.0 Patient was seen today on 12/21/2023, patient is doing well, on antibiotics for his peritonitis, patient is on peritoneal dialysis and he developed acute perito nitis. Pulmonary mauricio he is doing well, no cough no wheezing no shortness of breath, patient has very minimal abdominal discomfort, is at bedside. Patient has end-stage renal disease, on peritoneal dialysis, now with peritonitis, receiving intraperitoneal Fortaz. And is also on IV vancomycin Patient was reevaluated today on 12/22/2023, patient remains on intraperitoneal antibiotics, patient is feeling better, remains at bedside, patient does not seem to be in any distress. Denies any shortness of breath or cough or wheezing, on 2 L nasal cannula with O2 saturation of 95 to 97%. WBC count is 7.7 hemoglobin 9.4 basic metabolic profile is normal bicarb is 34 BUN is 60 creatinine 3.07 his last chest x-ray from 3 days ago showed evidence of fluid overload. And interstitial edema Objective - Vital Signs Vital signs: Vital Signs Temp 98.0 F 12/22/23 13:26 Pulse 69 12/22/23 13:26 Resp 18 12/22/23 13:26 BP 143/78 12/22/23 13:26 Pulse Ox 95 12/22/23 13:26 FiO2 45 12/21/23 04:07 Intake & Output 12/21/23 12/22/23 12/22/23 18:59 06:59 18:59 Intake Total 378 20 298 Output Total 101 600 95 Balance 277 -580 203 Weight 82.5 kg Intake: IV 20 20 10 Invasive Line 1 20 10 Invasive Line 3 10 10 Oral 358 0 288 Output: Urine 500 95 Emesis 101 100 Other: Voiding Method Urinal Urinal Urinal # Voids 2 # Bowel Movements 0 - Exam General: Reveals a 58-year-old male in no distress, on 2 L nasal cannula Skin: Skin is warm and dry and no rashes or lesions are noted. Eye: Pupils are equal, round and reactive to light, extra-ocular movements are intact; there is normal conjunctiva bilaterally. Ears, nose, mouth and throat: There are moist mucous membranes and no oral lesi ons. Neck: The neck is supple, there is no tenderness or JVD. Cardiovascular: There is a regular rate and rhythm. No murmur, rub or gallop is appreciated. Respiratory: Clear bilaterally no rhonchi no wheezes Gastrointestinal: Soft, non-distended, non-tender abdomen without masses or organomegaly noted. There is no rebound or guarding present. Bowel sounds are unremarkable. Back: There is no tenderness to palpation in the midline. There is no obvious deformity. Musculoskeletal: There is a left below-knee amputation. 1+ right lower extremity edema Neurological: CN II-XII intact, Cranial nerves III through XII are intact. There are no obvious motor or sensory deficits. Coordination appears grossly intact. Speech is normal. Psychiatric: Cooperative, appropriate mood & affect, normal judgment. - Labs CBC & Chem 7: 12/22/23 08:18 12/22/23 08:18 Labs: Abnormal Lab Results - Last 24 Hours (Table) 12/21/23 12/21/23 12/21/23 Range/Units 13:07 16:36 20:13 RBC (4.30-5.90) m/uL Hgb (13.0-17.5) gm/dL Hct (39.0-53.0) % MCHC (31.0-37.0) g/dL Sodium (137-145) mmol/L Carbon Dioxide (22-30) mmol/L BUN (9-20) mg/dL Creatinine (0.66-1.25) mg/dL Glucose (74-99) mg/dL POC Glucose (mg/dL) 146 H 219 H (70-110) mg/dL Calcium (8.4-10.2) mg/dL Fluid Appearance Hazy A (Clear) 12/22/23 12/22/23 12/22/23 Range/Units 05:58 08:18 08:18 RBC 3.26 L (4.30-5.90) m/uL Hgb 9.4 L (13.0-17.5) gm/dL Hct 30.6 L (39.0-53.0) % MCHC 30.8 L (31.0-37.0) g/dL Sodium 136 L (137-145) mmol/L Carbon Dioxide 34 H (22-30) mmol/L BUN 60 H (9-20) mg/dL Creatinine 3.07 H (0.66-1.25) mg/dL Glucose 170 H (74-99) mg/dL POC Glucose (mg/dL) 210 H (70-110) mg/dL Calcium 8.3 L (8.4-10.2) mg/dL Fluid Appearance (Clear) 12/22/23 Range/Units 11:38 RBC (4.30-5.90) m/uL Hgb (13.0-17.5) gm/dL Hct (39.0-53.0) % MCHC (31.0-37.0) g/dL Sodium (137-145) mmol/L Carbon Dioxide (22-30) mmol/L BUN (9-20) mg/dL Creatinine (0.66-1.25) mg/dL Glucose (74-99) mg/dL POC Glucose (mg/dL) 161 H (70-110) mg/dL Calcium (8.4-10.2) mg/dL Fluid Appearance (Clear) Microbiology - Last 24 Hours (Table) 12/20/23 07:06 Gram Stain - Preliminary Peritoneal Fluid Body Fluid Culture - Preliminary 12/16/23 17:52 Blood Culture - Final Blood 12/16/23 17:33 Blood Culture - Final Blood 12/21/23 13:07 Gram Stain - Preliminary Dialysate 12/20/23 08:54 Blood Culture - Preliminary Blood Assessment and Plan Assessment: Impression: Acute peritonitis based on abnormal dialysate, the findings are highly consistent with acute peritonitis. Acute on chronic hypoxic respiratory failure essentially due to fluid overload. Remains on diuretics. Patient has acute diastolic congestive heart failure. Shortness of breath secondary to above, clinically improving End-stage renal disease currently undergoing peritoneal dialysis, 2.5 dextrose solution 4 times a day Morbid obesity Obstructive sleep apnea, severe with a AHI of 78 Advanced COPD Peripheral vascular disease with previous BKA on the left End-stage renal disease presently on peritoneal dialysis Coronary artery disease Diabetes mellitus, with a component of steroid-induced hyperglycemia the patient was given IV Solu-Medrol in the emergency department. Hypertension, with an elevated blood pressure Hyperlipidemia Acid reflux History of smoking History of left below-knee amputation, and history of right third fourth and fifth toe amputation Recommendation: Continue antibiotics, cultures from the peritoneal fluid are negative so far, no growth in 48 hours Continue diuretics Continue peritoneal dialysis Continue bronchodilators for COPD Will continue to follow. Time with Patient: Less than 30
[2023-12-22 16:43] LABS: Glucose,Whole Blood 242 mg/dL (70-110)
--- NOTE | 2023-12-22 16:56 | P.PN ---
Progress Note - Text Progress Note Date: 12/22/23 58-year-old male came with complaints of shortness of breath orthopnea, patient has pulm edema patient is peritoneal dialysis patient with chronic kidney disease, end-stage renal disease. Patient states he is compliant with his medications and his diet patient was on torsemide 20 mg twice a day along with metolazone 5 mg on daily basis at home. Patient was started on IV Lasix for 40 mg every 8 hourly with good urine output. He does not have any fever chills chest x-ray did not show any pneumonia did show pulm edema patient's BNP is around 5000 12/18/2023 Patient is evaluated in follow up today on the medical floor. Patient continues with scattered wheezing and is continued on scheduled updrafts as well as symbicort. Pulmonary following this. Continues on IV lasix does have improvement in his shortness of breath and is currently on room air. Maintained on peritoneal dialysis per nephrology. Sodium level 135 today, BUN 66, creatinine 2.70. 12/19/2023 Patient is evaluated today on the medical floor in follow up. Less short of breath and the scattered wheezing has resolved at this time. Patient continues with lower extremity edema. He remains on IV lasix 60 mg Q12 hour and will continue for the next 24 hours. Patient is using BiPAP at HS. He is continued on peritoneal dialysis per nephrology. Sodium level is 136, BUN of 65 and creatinine 2.98. Follow up chest xray today reveals pulmonary venous congestion without overt failure. 12/20/2023 Patient evaluated today he is lethargic. Patient with his previous 2 CAPD exchanges overnight noted to have cloudy return and abdominal pain with dialysis. Nephrology has added fortaz and vanco to the solution. Blood cultures have been obtained. His echocardiogram has come back revealing an EF of around 45%. He is continued on IV lasix. 12/21/2023 Is evaluated today in follow-up on the medical floor. He is more awake alert oriented. Blood cultures are currently pending. He continues on peritoneal dialysis every 6 hours and continue with added antibiotic and also on vancomycin per pharmacy. Family at bedside all questions were answered. December 21: Decreased appetite. Has not had a bowel movement for last 5 days. Dulcolax suppository ordered. If no result then soapsuds enema. at the bedside. Tired. Getting intraperitoneal antibiotics-started December 19. Intraperitoneal dialysis. Dialysate has been clear. Active Medications Albuterol/Ipratropium (Ipratropium-Albuterol 3 Ml Neb) 3 ml INHALATION RT-QID [facility] Last Admin: 12/22/23 15:08 Dose: Not Given Albuterol/Ipratropium (Ipratropium-Albuterol 3 Ml Neb) 3 ml INHALATION RT-Q2H PRN PRN Reason: Shortness Of Breath Or Wheezing Allopurinol (Allopurinol 100 Mg Tab) 100 mg PO DAILY [facility] Last Admin: 12/22/23 11:29 Dose: Not Given Amlodipine Besylate (Amlodipine 5 Mg Tab) 5 mg PO BID [facility] Last Admin: 12/22/23 11:28 Dose: 5 mg Aspirin (Aspirin 81 Mg) 81 mg PO HS [facility] Last Admin: 12/21/23 21:20 Dose: 81 mg Atorvastatin Calcium (Atorvastatin 40 Mg Tab) 40 mg PO HS [facility] Last Admin: 12/21/23 21:20 Dose: 40 mg Bismuth Subsalicylate (Bismuth Subsalicylate 4,192 Mg/240 Ml Bottle) 524 mg PO Q1HR PRN PRN Reason: Diarrhea Budesonide/Formoterol Fumarate (Symbicort 80-4.5 Mcg Inhaler) 2 puff INHALATION RT-BID [facility] Last Admin: 12/22/23 08:37 Dose: Not Given Darbepoetin Landen (Darbepoetin Landen 40 Mcg/0.4 Ml Syringe) 40 mcg SQ Q7D [facility] Last Admin: 12/21/23 12:23 Dose: 40 mcg Dextrose/Water (Dextrose 50% Syringe 50 Ml) 25 ml IVP PER PROTOCOL PRN; Protocol PRN Reason: Hypoglycemia Dextrose/Water (Dextrose 50% Syringe 50 Ml) 50 ml IVP PER PROTOCOL PRN; Protocol PRN Reason: Hypoglycemia Docusate Sodium (Docusate 100 Mg Cap) 100 mg PO BID [facility] Last Admin: 12/22/23 11:29 Dose: Not Given Fluoxetine HCl (Fluoxetine Hcl 20 Mg Cap) 40 mg PO BID [facility] Last Admin: 12/22/23 11:28 Dose: 40 mg Furosemide (Furosemide 10 Mg/Ml 10 Ml Vial) 60 mg IV Q12H [facility] Last Admin: 12/22/23 13:54 Dose: 60 mg Heparin Sodium (Porcine) (Heparin Sodium,Porcine 5,000 Unit/Ml 1 Ml Vial) 5,000 unit SQ Q8HR [facility] Last Admin: 12/22/23 09:48 Dose: Not Given Hydralazine HCl (Hydralazine Hcl 50 Mg Tab) 75 mg PO QID [facility] Last Admin: 12/22/23 12:40 Dose: Not Given Peritoneal Dialysis Solution (Delflex With 2.5% Dextrose (2,500 Ml)) 62.5 g in 2,500 mls @ 0 mls/hr INTRAPERIT 0000,0600,1800 [facility]; Protocol Last Admin: 12/22/23 05:01 Dose: 999 mls/hr Ceftazidime 1 gm/ Peritoneal (Dialysis Solution) 2,500 mls @ 416.667 mls/hr INTRAPERIT 1200 [facility] Last Admin: 12/22/23 12:23 Dose: 416.667 mls/hr Insulin Aspart (Insulin Aspart (Novolog) 100 Unit/Ml Vial) 0 unit SQ ACHS [facility]; Protocol Last Admin: 12/22/23 12:40 Dose: Not Given Insulin Aspart (Insuln Asp Prt/Insulin Aspart 100 Unit/Ml 10 Ml Vial) 100 unit SQ AC-TID [facility] Last Admin: 12/22/23 12:40 Dose: Not Given Isosorbide Mononitrate (Isosorbide Mononitrate Er 60 Mg Tab.Er.24h) 60 mg PO DAILY [facility] Last Admin: 12/22/23 11:28 Dose: 60 mg Lactulose (Lactulose 20 Gm/30 Ml Cup) 10 gm PO TID PRN PRN Reason: Constipation Loratadine (Loratadine 10 Mg Tab) 10 mg PO HS [facility] Last Admin: 12/21/23 21:20 Dose: 10 mg Metoprolol Succinate (Metoprolol Succinate (Er) 100 Mg Tab.Er.24h) 100 mg PO DAILY [facility] Last Admin: 12/22/23 11:28 Dose: 100 mg Miscellaneous Information (Vancomycin Iv Per Pharmacy 1 Each [facility] [place]) 1 each MISCELLANE DIRECTED PRN; Protocol PRN Reason: Per Protocol Naloxone HCl (Naloxone 0.4 Mg/Ml 1 Ml Vial) 0.2 mg IVP Q2M PRN PRN Reason: Opioid Reversal Ondansetron HCl (Ondansetron 4 Mg/2 Ml Vial) 4 mg IVP Q6HR PRN PRN Reason: Nausea And Vomiting Last Admin: 12/22/23 11:30 Dose: 4 mg Oxycodone/Acetaminophen (Oxycodone-Apap 10-325mg 1 Each Tab) 1 each PO Q6HR [facility] Last Admin: 12/22/23 11:27 Dose: Not Given Pantoprazole Sodium (Pantoprazole 40 Mg Tablet) 40 mg PO AC-BID [facility] Last Admin: 12/22/23 06:50 Dose: 40 mg Tamsulosin HCl (Tamsulosin 0.4 Mg Cap.Er.24h) 0.4 mg PO DAILY [facility] Last Admin: 12/22/23 11:28 Dose: 0.4 mg Social history: Lives with his . Smokes about half a pack a day for many years. No alcohol. Did use marijuana in the past. Physical examination: VITAL SIGNS: 71, 20, 146 x 72, 95% room air GENERAL: BMI 26.1 reclining bed, comfortable EYES: Pupils equal. Conjunctiva julieta l. HEENT: External appearance of nose and ears normal, oral cavity grossly normal. NECK: JVD not raised; masses not palpable. HEART: First and second heart sounds are normal; no edema. LUNGS:[ Respiratory rate increased decreased breath sounds. ABDOMEN: Soft, distended nontender, liver spleen not palpable, no masses palpable. PSYCH: Alert and oriented x3; mood and affect normal MUSCULOSKELETAL: Left BKA. With prosthesis. Right foot second third and fourth toe amputated. INVESTIGATIONS, reviewed in the clinical context: December 29: White count 7.7 hemoglobin 9.4 platelets 246 sodium 136 potassium 4.2 BUN 60 creatinine 3.07 2D echo: EF 45% Assessment and plan -Congestive heart failure with reduced ejection fraction, acute exacerbation, continue with IV Lasix, input and output monitoring and electrolyte monitoring. -End-stage disease on peritoneal dialysis which is managed by nephrology. -Altered mental status secondary to acute toxic and metabolic encephalopathy from infection and renal dysfunction -Concern for bacterial peritonitis antibiotics have been added to solution and blood cultures taken. ID consulted. -Hyperkalemia secondary to kidney failure improved. -COPD without any significant exacerbation will not need any systemic steroids continues on updrafts scheduled and as needed, maintained on symbicort. -Coronary artery disease -Hyperlipidemia -Hypertension remain off clonidine. -Sleep apnea -Peripheral artery disease with amputations as mentioned above in the past below-knee on the left side and a third fourth and fifth toe amputation on the right side -Type 2 diabetes mellitus continue accuchecks ACHS and sliding scale insulin resumed on home dose 70/30 mix. DVT prophylaxis: Subcutaneous heparin Plan Continue on IV Lasix intake and output monitoring Cardiology recommended to continue current medications and will sign off and follow-up in the office in 2 weeks. Continues on peritoneal dialysis every 6 hours with added vancomycin and ceftazidime. Patient is also on IV vancomycin per pharmacy. Blood cultures are currently pending at this time as well as peritoneal fluid culture. Repeat blood work in the morning Assessment and plan: -Acute congestive heart failure exacerbation from systolic dysfunction EF 45%: Slow to respond IV Lasix 60 mg every 12 -End-stage kidney disease on peritoneal dialysis Nephrology following. -Peritoneal dialysis catheter associated peritonitis. Dialysate has been clear Started on IV vancomycin and Fortaz on December 19. -Anemia of chronic kidney disease Aranesp -Essential hypertension Toprol-XL 100 mg a day. Amlodipine 5 mg twice daily. Hydralazine 75 mg 4 times daily -Diabetes mellitus type 2, chronically insulin Follow Accu-Cheks with sliding scale insulin -BPH Flomax -Hyperlipidemia Lipitor 80 mg nightly -Depression anxiety Prozac 40 mg twice daily -Diabetic peripheral neuropathy Neurontin 400 mg nightly -COPD in a current smoker inhalers -Left below-knee amputation with a prosthesis. Right foot second third and fourth toe amputation. -Full code Patient is given a Dulcolax suppository. Had a moderate-sized BM per the nurse.
[2023-12-22 19:48] LABS: Vancomycin,Random 12.9 ug/mL
[2023-12-22 20:21] LABS: Glucose,Whole Blood 249 mg/dL (70-110)
[2023-12-22] MEDS: VANCOMYCIN 2,000 MG in SODIUM CHLORIDE 0.9% 500 ML 500 ML IVPB ONE (22:21)
[2023-12-23 05:48] LABS: Glucose,Whole Blood 220 mg/dL (70-110)
[2023-12-23 07:35] LABS: Appearance,BF Clear (Clear); RBC, Body Fluid 9 /UL (0-2000)
[2023-12-23] MEDS: LACTULOSE 20 GM/30 ML CUP PO PRN (09:37)
[2023-12-23 09:41] LABS: Nucleated Cells, Body Fluid 81 /UL
[2023-12-23 11:14] LABS: Glucose,Whole Blood 299 mg/dL (70-110)
--- NOTE | 2023-12-23 11:48 | P.PN ---
Subjective Patient is seen in follow-up for end-stage renal disease. He is maintained on peritoneal dialysis. On intraperitoneal antibiotics which were started December 20, 2023. No abdominal pain. States dialysate has been clear. Nauseated. present at bedside. Vital signs are stable. General: No acute distress. HEENT: Head exam is unremarkable. On nasal cannula. LUNGS: No audible rhonchi or wheezes. HEART: Rate and Rhythm are regular. ABDOMEN: Obese, nontender. EXTREMITITES: Trace edema. BKA noted. Objective - Vital Signs Vital signs: Vital Signs Temp 98.8 F 12/23/23 08:00 Pulse 97 12/23/23 08:00 Resp 17 12/23/23 08:00 BP 146/69 12/23/23 08:00 Pulse Ox 93 L 12/23/23 08:00 FiO2 45 12/21/23 04:07 Intake & Output 12/22/23 12/23/23 12/23/23 18:59 06:59 18:59 Intake Total 308 10 0 Output Total 95 650 Balance 213 -640 0 Weight 120.5 kg Intake: IV 20 10 Invasive Line 3 20 10 Oral 288 0 Output: Urine 95 650 Other: Voiding Method Urinal Urinal Urinal # Voids 2 2 # Bowel Movements 1 - Labs CBC & Chem 7: 12/22/23 08:18 12/22/23 08:18 Labs: Abnormal Lab Results - Last 24 Hours (Table) 12/22/23 12/22/23 12/22/23 Range/Units 08:18 16:41 20:19 Sodium 136 L (137-145) mmol/L Carbon Dioxide 34 H (22-30) mmol/L BUN 60 H (9-20) mg/dL Creatinine 3.07 H (0.66-1.25) mg/dL Glucose 170 H (74-99) mg/dL POC Glucose (mg/dL) 242 H 249 H (70-110) mg/dL Calcium 8.3 L (8.4-10.2) mg/dL 12/23/23 12/23/23 Range/Units 05:48 11:12 Sodium (137-145) mmol/L Carbon Dioxide (22-30) mmol/L BUN (9-20) mg/dL Creatinine (0.66-1.25) mg/dL Glucose (74-99) mg/dL POC Glucose (mg/dL) 220 H 299 H (70-110) mg/dL Calcium (8.4-10.2) mg/dL Microbiology - Last 24 Hours (Table) 12/22/23 18:47 Gram Stain - Preliminary Dialysate 12/20/23 07:06 Gram Stain - Preliminary Peritoneal Fluid Body Fluid Culture - Preliminary 12/21/23 13:07 Gram Stain - Preliminary Dialysate Body Fluid Culture - Preliminary 12/20/23 08:54 Blood Culture - Preliminary Blood Assessment and Plan Plan: Assessment: 1. End-stage renal disease maintained on peritoneal dialysis. 2. Volume overload. Improved. 3. Hypertension with chronic kidney disease. Stable. 4. Diabetes mellitus. 5. Chronic kidney disease mineral bone disease. 6. PD associated peritonitis. Dialysate WBC count 14,234 with PMN count of 95%; WBC count 863 with 66% PMNs dated December 21, 2023; WBC count 81 with PMNs 50% dated December 22, 2023. Started on intraperitoneal vancomycin and Fortaz December 20, 2023. Also on IV vancomycin per ID due to possible cellulitis. 7. Anemia of chronic kidney disease. On Aranesp. Plan: Maintain current PD exchanges. Advised patient to maintain low-salt diet and fluid restriction of less than 50 ounces per day upon discharge. Blood sugar control. Maintain intraperitoneal antibiotics -1 g intraperitoneal vancomycin and Fortaz started December 20, 2023. Maintain Fortaz daily. Anticipate discharge soon. Patient will finish 3-week course of intraperitoneal antibiotics outpatient.
--- NOTE | 2023-12-23 13:21 | P.PN ---
Subjective Progress Note Date: 12/23/23 This is a 58-year-old male patient who is very well-known to me. The patient is morbidly obese with a body mass index of 60. The patient has obstructive sleep apnea maintained on BiPAP on outpatient basis. His baseline AHI 78.3 and the patient has been maintained on treatment. He also has advanced COPD, end-stage renal disease and he undergoes peritoneal dialysis at home. He has peripheral vascular disease and previous BKA of the left lower extremity, coronary disease, diabetes mellitus type 2, hypertension hyperlipidemia and previous history of smoking. The patient came into the hospital because of progressive worsening shortness of breath. He was undergoing peritoneal dialysis without any significant improvement in his respiratory status. Based on that, the patient ended up coming into the emergency department for further evaluation. Initial chest x-ray was consistent with cardiomegaly and pulm vascular congestion and small effusions consistent with CHF and fluid overload. Note that his last echocardiogram that was done back in 2019 showed a preserved LV function and the patient was found to have an ejection fraction of 50 to 55% back then. Rest of the blood work shows a WBC count of 8.8 with a hemoglobin 10.5 and a platelet count of 235. Normal coagulation profile. BUN is 53 with a creatinine of 2.6. Electrolytes are stable with a potassium level of 5.4. Liver function tests are essentially within normal limits. proBNP level is 5416 and troponin is less than 0.01. The patient has no altered mentation. No chest pain. He did not utilize BiPAP overnight to the emergency department and the patient is currently off the BiPAP maintained on oxygen by nasal cannula at 3 L. The patient was also started on diuretics. The patient was started on IV Lasix and is currently receiving 60 mg every 12 hours and the patient is producing excellent amount of urine output in combination with Zaroxolyn. He seems to be in negative fluid balance. Awaiting nephrology consultation. No other significant events otherwise for now. He is free of any chest pain. No altered mentation. His EKG showed normal sinus rhythm along with old Q waves involving the anteroseptal leads. 12/18/2023, the patient is breathing much easier. He is currently on room air oxygen with a pulse ox of 92%. He was diuresed adequately. The patient was on a combination of Lasix 60 mg for 12 hours and the patient was also on Zaroxolyn. He is undergoing peritoneal dialysis. He utilized the BiPAP overnight at a pressure of 10 over 5 cm of water. Electrolytes from today show a potassium level of 5.1, BUN 66 with a creatinine of 2.7. Rest of the medications remain unchanged. BP is under better control. He is currently on metoprolol XL 100 mg p.o. daily, Norvasc 5 mg p.o. twice a day in addition to his diuretics. Hydralazine is also being administered a dose of 50 mg p.o. 4 times daily and Imdur 60 mg p.o. daily. He is undergoing PD with 2.5% dextrose solution every 6 hours. Echocardiogram was ordered. Patient was evaluated today on 12/19/2023, patient is feeling better, breathing easier, remains on diuretics, remains on bronchodilators, patient is receiving Lasix 60 mg every 12 hours, he is also on Zaroxolyn. Undergoing peritoneal dialysis. Patient is on BiPAP at night with a pressure of 10/5. Labs today showed relatively normal basic metabolic profile BUN is 65 creatinine 2.98 follow-up chest x-ray is pending, last chest x-ray showed evidence of pulmonary edema. Patient was reevaluated today on 12/20/2023, patient is not doing well today, apparently he had intermittent episodes of confusion last night, patient was found to have cloudy dialysate this morning, and fluid analysis suggestive of peritonitis, the fluid from the peritoneal cavity/fluid dialysate showed 14,254 WBC count, and 95% PMNs. This is clearly consistent with acute peritonitis from his peritoneal dialysis. Patient was started on intraperitoneal Fortaz, and IV vancomycin. His WBC count today is 10.2 hemoglobin 9.4 basic metabolic profile is normal BUN is 67 creatinine 3.0 Patient was seen today on 12/21/2023, patient is doing well, on antibiotics for his peritonitis, patient is on peritoneal dialysis and he developed acute peritonitis. Pulmonary mauricio he is doing well, no cough no wheezing no shortness of breath, patient has very minimal abdominal discomfort, is at bedside. Patient has end-stage renal disease, on peritoneal dialysis, now with peritonitis, receiving intraperitoneal Fortaz. And is also on IV vancomycin Patient was reevaluated today on 12/22/2023, patient remains on intraperitoneal antibiotics, patient is feeling better, remains at bedside, patient does not seem to be in any distress. Denies any shortness of breath or cough or wheezing, on 2 L nasal cannula with O2 saturation of 95 to 97%. WBC count is 7.7 hemoglobin 9.4 basic metabolic profile is normal bicarb is 34 BUN is 60 creatinine 3.07 his last chest x-ray from 3 days ago showed evidence of fluid overload. And interstitial edema The patient is seen today December 23, 2023 in follow-up on the regular medical floor. He is currently sitting up in a chair at the bedside. Awake and alert in no acute distress. Maintaining good O2 saturations in the 90s on room air. Blood cultures revealed no growth. Peritoneal fluid cultures revealed no growth. Blood sugar 228. He is continued on ceftazidime in the peritoneal dialysis solution. Receiving vancomycin. Continued on heparin for DVT prophylaxis. Remains on bronchodilators. Remains on IV diuretics. Currently in a -427 mL balance. Objective - Vital Signs Vital signs: Vital Signs Temp 98.6 F 12/23/23 12:36 Pulse 72 12/23/23 12:36 Resp 17 12/23/23 12:36 BP 129/66 12/23/23 12:36 Pulse Ox 98 12/23/23 12:36 FiO2 45 12/21/23 04:07 Intake & Output 12/22/23 12/23/23 12/23/23 18:59 06:59 18:59 Intake Total 308 10 0 Output Total 95 650 400 Balance 213 -640 -400 Weight 120.5 kg Intake: IV 20 10 Invasive Line 3 20 10 Oral 288 0 Output: Urine 95 650 400 Other: Voiding Method Urinal Urinal Urinal # Voids 2 2 # Bowel Movements 1 - Exam General: Reveals a very pleasant 58-year-old male sitting up in a chair, in no distress, on 2 L nasal cannula Skin: Skin is warm and dry and no rashes or lesions are noted. Eye: Pupils are equal, round and reactive to light, extra-ocular movements are intact. Ears, nose, mouth and throat: There are moist mucous membranes and no oral lesions. Neck: The neck is supple, there is no tenderness or JVD. Cardiovascular: There is a regular rate and rhythm. No murmur, rub or gallop is appreciated. Respiratory: Clear bilaterally no rhonchi no wheezes Gastrointestinal: Soft, non-distended, non-tender abdomen without masses or organomegaly noted. Back: There is no tenderness to palpation in the midline. There is no obvious deformity. Musculoskeletal: There is a left below-knee amputation. 1+ right lower extremity edema Neurological: CN II-XII intact, Cranial nerves III through XII are intact. Speech is normal. Psychiatric: Cooperative, appropriate mood & affect, normal judgment. - Labs CBC & Chem 7: 12/22/23 08:18 12/22/23 08:18 Labs: Abnormal Lab Results - Last 24 Hours (Table) 12/22/23 12/22/23 12/22/23 Range/Units 08:18 16:41 20:19 Sodium 136 L (137-145) mmol/L Carbon Dioxide 34 H (22-30) mmol/L BUN 60 H (9-20) mg/dL Creatinine 3.07 H (0.66-1.25) mg/dL Glucose 170 H (74-99) mg/dL POC Glucose (mg/dL) 242 H 249 H (70-110) mg/dL Calcium 8.3 L (8.4-10.2) mg/dL 12/23/23 12/23/23 Range/Units 05:48 11:12 Sodium (137-145) mmol/L Carbon Dioxide (22-30) mmol/L BUN (9-20) mg/dL Creatinine (0.66-1.25) mg/dL Glucose (74-99) mg/dL POC Glucose (mg/dL) 220 H 299 H (70-110) mg/dL Calcium (8.4-10.2) mg/dL Microbiology - Last 24 Hours (Table) 12/22/23 18:47 Gram Stain - Preliminary Dialysate 12/20/23 07:06 Gram Stain - Preliminary Peritoneal Fluid Body Fluid Culture - Preliminary 12/21/23 13:07 Gram Stain - Preliminary Dialysate Body Fluid Culture - Preliminary 12/20/23 08:54 Blood Culture - Preliminary Blood Assessment and Plan Assessment: Acute peritonitis based on abnormal dialysate, the findings are highly consistent with acute peritonitis. Acute on chronic hypoxic respiratory failure essentially due to acute exacerbation of diastolic congestive heart failure. Recovered and on room air Shortness of breath secondary to above, clinically improving End-stage renal disease currently undergoing peritoneal dialysis, 2.5 dextrose solution 4 times a day Morbid obesity Obstructive sleep apnea, severe with a AHI of 78 Advanced COPD Peripheral vascular disease with previous BKA on the left End-stage renal disease presently on peritoneal dialysis Coronary artery disease Diabetes mellitus, with a component of steroid-induced hyperglycemia the patient was given IV Solu-Medrol in the emergency department. Hypertension, with an elevated blood pressure Hyperlipidemia Acid reflux History of smoking History of left below-knee amputation, and history of right third fourth and fifth toe amputation Plan: The patient was seen and evaluated Labs and medications reviewed Stable and on room air Home once cleared by nephrology Plan is for 3-weeks of intraperitoneal antibiotics I have personally seen and examined the patient, performed the documentation and the assessment and plan as written. Number of minutes spent on the visit: 10.
--- NOTE | 2023-12-23 15:45 | P.PN ---
Progress Note - Text Progress Note Date: 12/23/23 58-year-old male came with complaints of shortness of breath orthopnea, patient has pulm edema patient is peritoneal dialysis patient with chronic kidney disease, end-stage renal disease. Patient states he is compliant with his medications and his diet patient was on torsemide 20 mg twice a day along with metolazone 5 mg on daily basis at home. Patient was started on IV Lasix for 40 mg every 8 hourly with good urine output. He does not have any fever chills chest x-ray did not show any pneumonia did show pulm edema patient's BNP is around 5000 12/18/2023 Patient is evaluated in follow up today on the medical floor. Patient continues with scattered wheezing and is continued on scheduled updrafts as well as symbicort. Pulmonary following this. Continues on IV lasix does have improvement in his shortness of breath and is currently on room air. Maintained on peritoneal dialysis per nephrology. Sodium level 135 today, BUN 66, creatinine 2.70. 12/19/2023 Patient is evaluated today on the medical floor in follow up. Less short of breath and the scattered wheezing has resolved at this time. Patient continues with lower extremity edema. He remains on IV lasix 60 mg Q12 hour and will continue for the next 24 hours. Patient is using BiPAP at HS. He is continued on peritoneal dialysis per nephrology. Sodium level is 136, BUN of 65 and creatinine 2.98. Follow up chest xray today reveals pulmonary venous congestion without overt failure. 12/20/2023 Patient evaluated today he is lethargic. Patient with his previous 2 CAPD exchanges overnight noted to have cloudy return and abdominal pain with dialysis. Nephrology has added fortaz and vanco to the solution. Blood cultures have been obtained. His echocardiogram has come back revealing an EF of around 45%. He is continued on IV lasix. 12/21/2023 Is evaluated today in follow-up on the medical floor. He is more awake alert oriented. Blood cultures are currently pending. He continues on peritoneal dialysis every 6 hours and continue with added antibiotic and also on vancomycin per pharmacy. Family at bedside all questions were answered. December 21: Decreased appetite. Has not had a bowel movement for last 5 days. Dulcolax suppository ordered. If no result then soapsuds enema. at the bedside. Tired. Getting intraperitoneal antibiotics-started December 19. Intraperitoneal dialysis. Dialysate has been clear. December 22: Patient had some oatmeal today. Then later vomited. Had a very small BM with Dulcolax suppository. Soapsuds enema and he was supposed to be given yesterday. Again reminded the nurse this morning for the same. Getting IV ceftazidime. Remains on fluid restriction. Intraperitoneal antibiotics. Active Medications Albuterol/Ipratropium (Ipratropium-Albuterol 3 Ml Neb) 3 ml INHALATION RT-QID [facility] Last Admin: 12/23/23 12:06 Dose: Not Given Albuterol/Ipratropium (Ipratropium-Albuterol 3 Ml Neb) 3 ml INHALATION RT-Q2H PRN PRN Reason: Shortness Of Breath Or Wheezing Allopurinol (Allopurinol 100 Mg Tab) 100 mg PO DAILY [facility] Last Admin: 12/23/23 10:06 Dose: 100 mg Amlodipine Besylate (Amlodipine 5 Mg Tab) 5 mg PO BID [facility] Last Admin: 12/23/23 10:06 Dose: 5 mg Aspirin (Aspirin 81 Mg) 81 mg PO HS [facility] Last Admin: 12/22/23 22:21 Dose: 81 mg Atorvastatin Calcium (Atorvastatin 40 Mg Tab) 40 mg PO HS [facility] Last Admin: 12/22/23 22:21 Dose: 40 mg Bismuth Subsalicylate (Bismuth Subsalicylate 4,192 Mg/240 Ml Bottle) 524 mg PO Q1HR PRN PRN Reason: Diarrhea Budesonide/Formoterol Fumarate (Symbicort 80-4.5 Mcg Inhaler) 2 puff INHALATION RT-BID [facility] Last Admin: 12/23/23 08:39 Dose: Not Given Darbepoetin Landen (Darbepoetin Landen 40 Mcg/0.4 Ml Syringe) 40 mcg SQ Q7D [facility] Last Admin: 12/21/23 12:23 Dose: 40 mcg Dextrose/Water (Dextrose 50% Syringe 50 Ml) 25 ml IVP PER PROTOCOL PRN; Protocol PRN Reason: Hypoglycemia Dextrose/Water (Dextrose 50% Syringe 50 Ml) 50 ml IVP PER PROTOCOL PRN; Protocol PRN Reason: Hypoglycemia Docusate Sodium (Docusate 100 Mg Cap) 100 mg PO BID [facility] Last Admin: 12/23/23 10:07 Dose: 100 mg Fluoxetine HCl (Fluoxetine Hcl 20 Mg Cap) 40 mg PO BID [facility] Last Admin: 12/23/23 10:06 Dose: 40 mg Furosemide (Furosemide 10 Mg/Ml 10 Ml Vial) 60 mg IV Q12H [facility] Last Admin: 12/23/23 12:14 Dose: 60 mg Heparin Sodium (Porcine) (Heparin Sodium,Porcine 5,000 Unit/Ml 1 Ml Vial) 5,000 unit SQ Q8HR [facility] Last Admin: 12/23/23 09:14 Dose: Not Given Hydralazine HCl (Hydralazine Hcl 50 Mg Tab) 75 mg PO QID [facility] Last Admin: 12/23/23 12:14 Dose: 75 mg Peritoneal Dialysis Solution (Delflex With 2.5% Dextrose (2,500 Ml)) 62.5 g in 2,500 mls @ 0 mls/hr INTRAPERIT 0000,0600,1800 [facility]; Protocol Last Admin: 12/23/23 05:59 Dose: 999 mls/hr Ceftazidime 1 gm/ Peritoneal (Dialysis Solution) 2,500 mls @ 416.667 mls/hr INTRAPERIT 1200 [facility] Last Admin: 12/23/23 12:14 Dose: 416.667 mls/hr Insulin Aspart (Insulin Aspart (Novolog) 100 Unit/Ml Vial) 0 unit SQ ACHS [facility]; Protocol Last Admin: 12/23/23 12:13 Dose: 6 unit Insulin Aspart (Insuln Asp Prt/Insulin Aspart 100 Unit/Ml 10 Ml Vial) 100 unit SQ AC-TID [facility] Last Admin: 12/23/23 12:12 Dose: 70 unit Isosorbide Mononitrate (Isosorbide Mononitrate Er 60 Mg Tab.Er.24h) 60 mg PO DAILY [facility] Last Admin: 12/23/23 10:07 Dose: 60 mg Lactulose (Lactulose 20 Gm/30 Ml Cup) 10 gm PO TID PRN PRN Reason: Constipation Last Admin: 12/23/23 09:37 Dose: 10 gm Loratadine (Loratadine 10 Mg Tab) 10 mg PO HS [facility] Last Admin: 12/22/23 22:21 Dose: 10 mg Metoprolol Succinate (Metoprolol Succinate (Er) 100 Mg Tab.Er.24h) 100 mg PO DAILY [facility] Last Admin: 12/23/23 10:06 Dose: 100 mg Miscellaneous Information (Vancomycin Iv Per Pharmacy 1 Each Misc) 1 each MISCELLANE DIRECTED PRN; Protocol PRN Reason: Per Protocol Naloxone HCl (Naloxone 0.4 Mg/Ml 1 Ml Vial) 0.2 mg IVP Q2M PRN PRN Reason: Opioid Reversal Ondansetron HCl (Ondansetron 4 Mg/2 Ml Vial) 4 mg IVP Q6HR PRN PRN Reason: Nausea And Vomiting Last Admin: 12/23/23 09:38 Dose: 4 mg Oxycodone/Acetaminophen (Oxycodone-Apap 10-325mg 1 Each Tab) 1 each PO Q6HR [facility] Last Admin: 12/23/23 11:56 Dose: Not Given Pantoprazole Sodium (Pantoprazole 40 Mg Tablet) 40 mg PO AC-BID [facility] Last Admin: 12/23/23 07:07 Dose: 40 mg Tamsulosin HCl (Tamsulosin 0.4 Mg Cap.Er.24h) 0.4 mg PO DAILY [facility] Last Admin: 12/23/23 10:06 Dose: 0.4 mg Social history: Lives with his . Smokes about half a pack a day for many years. No alcohol. Did use marijuana in the past. Physical examination: VITAL SIGNS: 98.6, 32, 17, 129 x 66, 98% room air GENERAL: Reclining bed, comfortable EYES: Pupils equal. Conjunctiva julieta l. HEENT: External appearance of nose and ears normal, oral cavity grossly normal. NECK: JVD not raised; masses not palpable. HEART: First and second heart sounds are normal; no edema. LUNGS:[ Respiratory rate increased decreased breath sounds. ABDOMEN: Soft, distended nontender, liver spleen not palpable, no masses palpable. PSYCH: Alert and oriented x3; mood and affect normal MUSCULOSKELETAL: Left BKA. With prosthesis. Right foot second third and fourth toe amputated. INVESTIGATIONS, reviewed in the clinical context: December 21: White count 7.7 hemoglobin 9.4 platelets 246 sodium 136 potassium 4.2 BUN 60 creatinine 3.07 2D echo: EF 45% Assessment and plan: -Acute congestive heart failure exacerbation from systolic dysfunction EF 45%: Slow to respond IV Lasix 60 mg every 12 -End-stage kidney disease on peritoneal dialysis Nephrology following. -Peritoneal dialysis catheter associated peritonitis. Dialysate has been clear Started on IV vancomycin and Fortaz on December 19. -Anemia of chronic kidney disease Aranesp -Essential hypertension Toprol-XL 100 mg a day. Amlodipine 5 mg twice daily. Hydralazine 75 mg 4 times daily -Diabetes mellitus type 2, chronically insulin Follow Accu-Cheks with sliding scale insulin -BPH Flomax -Hyperlipidemia Lipitor 80 mg nightly -Depression anxiety Prozac 40 mg twice daily -Diabetic peripheral neuropathy Neurontin 400 mg nightly -COPD in a current smoker inhalers -Left below-knee amputation with a prosthesis. Right foot second third and fourth toe amputation. -Full code Patient to get a soapsuds enema today. If has a good bowel movement and able to tolerate diet possibly in the next day or so
[2023-12-23 16:18] LABS: Glucose,Whole Blood 184 mg/dL (70-110)
--- NOTE | 2023-12-23 17:29 | P.PN ---
Subjective Progress Note Date: 12/22/23 Principal diagnosis: Reason for vomitus PD catheter associated peritonitis Patient is a 58-year-old male with a past medical history significant for coronary artery disease COPD diabetes mellitus hypertension hyperlipidemia end- stage renal renal disease on peritoneal dialysis for about a year presenting to the hospital with shortness of breath patient subsequent developing abdominal pain noticed to have a cloudy peritoneal fluid, some Erythema around the dialysis catheter concerning for PD catheter associated peritonitis. On today's evaluation that is 12/22/2023, Patient is afebrile this morning and denies any chills, patient mention breathing comfortably and is currently on 2 L current oxygen patient denies any chest pain occasional cough patient denies any abdominal pain no diarrhea per the patient no bowel movement, no nausea no vomiting Patient white count normal at 7.7, creatinine 3.0 7 repeat peritoneal fluid white count none Objective - Vital Signs Vital signs: Vital Signs Temp 97.6 F 12/22/23 09:53 Pulse 69 12/22/23 09:53 Resp 18 12/22/23 09:53 BP 148/80 12/22/23 09:53 Pulse Ox 97 12/22/23 09:53 FiO2 45 12/21/23 04:07 Intake & Output 12/21/23 12/22/23 12/22/23 18:59 06:59 18:59 Intake Total 378 20 10 Output Total 101 600 Balance 277 -580 10 Weight 82.5 kg Intake: IV 20 20 10 Invasive Line 1 20 10 Invasive Line 3 10 10 Oral 358 0 Output: Urine 500 Emesis 101 100 Other: Voiding Method Urinal Urinal Urinal # Voids 2 # Bowel Movements 0 - Exam GENERAL DESCRIPTION: Middle-aged male lying in bed in no distress RESPIRATORY SYSTEM: Unlabored breathing , decreased breath sounds at bases HEART: S1 S2 regular rate and rhythm , ABDOMEN: Soft , mild distention but no tenderness EXTREMITIES: No edema feet - Labs CBC & Chem 7: 12/22/23 08:18 12/22/23 08:18 Labs: Abnormal Lab Results - Last 24 Hours (Table) 12/21/23 12/21/23 12/21/23 Range/Units 11:49 13:07 16:36 RBC (4.30-5.90) m/uL Hgb (13.0-17.5) gm/dL Hct (39.0-53.0) % MCHC (31.0-37.0) g/dL POC Glucose (mg/dL) 118 H 146 H (70-110) mg/dL Fluid Appearance Hazy A (Clear) 12/21/23 12/22/23 12/22/23 Range/Units 20:13 05:58 08:18 RBC 3.26 L (4.30-5.90) m/uL Hgb 9.4 L (13.0-17.5) gm/dL Hct 30.6 L (39.0-53.0) % MCHC 30.8 L (31.0-37.0) g/dL POC Glucose (mg/dL) 219 H 210 H (70-110) mg/dL Fluid Appearance (Clear) Microbiology - Last 24 Hours (Table) 12/20/23 07:06 Gram Stain - Preliminary Peritoneal Fluid Body Fluid Culture - Preliminary 12/16/23 17:52 Blood Culture - Final Blood 12/16/23 17:33 Blood Culture - Final Blood 12/21/23 13:07 Gram Stain - Preliminary Dialysate 12/20/23 08:54 Blood Culture - Preliminary Blood Assessment and Plan (1) Peritoneal dialysis catheter infection Current Visit: Yes Status: Acute Code(s): T85.71XA - INFECT/INFLM REACTION DUE TO PERITON DIALYSIS CATHETER, INIT SNOMED Code(s): 618055484 (2) Peritonitis Current Visit: Yes Status: Acute Code(s): K65.9 - PERITONITIS, UNSPECIFIED SNOMED Code(s): 32235148 Plan: 1patient with abdominal pain cloudy peritoneal fluid concerning for PD catheter associated peritonitis nursing staff mention this morning some erythema around the catheter site however I do not appreciate any or any drainage we will likely need to cover for the gram-positive skin lindsay to be the likely pathogen gram- negative infection less likely would not have excluded 2patient did have significant elevated white count in the peritoneal fluid, peritoneal fluid and blood cultures currently pending 3patient did have some clinical improvement and continue with vancomycin pharmacy to dose systemically and Fortaz intraperitoneally while waiting for the culture to finalize Dictation was produced using [employer] dictation software. please excuse any grammatical, word or spelling errors. Time with Patient: Less than 30
--- NOTE | 2023-12-23 17:29 | P.PN ---
Subjective Progress Note Date: 12/23/23 Principal diagnosis: Reason for vomitus PD catheter associated peritonitis Patient is a 58-year-old male with a past medical history significant for coronary artery disease COPD diabetes mellitus hypertension hyperlipidemia end- stage renal renal disease on peritoneal dialysis for about a year presenting to the hospital with shortness of breath patient subsequent developing abdominal pain noticed to have a cloudy peritoneal fluid, some Erythema around the dialysis catheter concerning for PD catheter associated peritonitis. On today's evaluation that is 12/23/2023,the patient denies any fever or any chills, patient is breathing comfortably on room air, the patient denies chest pain shortness of breath and no significant cough, patient denies abdominal pain, no nausea vomiting or diarrhea. Mention feeling slightly better. No new labs were drawn today peritoneal fluid culture remains to be pending Objective - Vital Signs Vital signs: Vital Signs Temp 98.8 F 12/23/23 08:00 Pulse 97 12/23/23 08:00 Resp 17 12/23/23 08:00 BP 146/69 12/23/23 08:00 Pulse Ox 93 L 12/23/23 08:00 FiO2 45 12/21/23 04:07 Intake & Output 12/22/23 12/23/23 12/23/23 18:59 06:59 18:59 Intake Total 308 10 0 Output Total 95 650 Balance 213 -640 0 Weight 120.5 kg Intake: IV 20 10 Invasive Line 3 20 10 Oral 288 0 Output: Urine 95 650 Other: Voiding Method Urinal Urinal Urinal # Voids 2 2 # Bowel Movements 1 - Exam GENERAL DESCRIPTION: Middle-aged male lying in bed in no distress RESPIRATORY SYSTEM: Unlabored breathing , decreased breath sounds at bases HEART: S1 S2 regular rate and rhythm , ABDOMEN: Soft , mild distention but no tenderness EXTREMITIES: No edema feet - Labs CBC & Chem 7: 12/22/23 08:18 12/22/23 08:18 Labs: Abnormal Lab Results - Last 24 Hours (Table) 12/22/23 12/22/23 12/22/23 Range/Units 08:18 16:41 20:19 Sodium 136 L (137-145) mmol/L Carbon Dioxide 34 H (22-30) mmol/L BUN 60 H (9-20) mg/dL Creatinine 3.07 H (0.66-1.25) mg/dL Glucose 170 H (74-99) mg/dL POC Glucose (mg/dL) 242 H 249 H (70-110) mg/dL Calcium 8.3 L (8.4-10.2) mg/dL 12/23/23 12/23/23 Range/Units 05:48 11:12 Sodium (137-145) mmol/L Carbon Dioxide (22-30) mmol/L BUN (9-20) mg/dL Creatinine (0.66-1.25) mg/dL Glucose (74-99) mg/dL POC Glucose (mg/dL) 220 H 299 H (70-110) mg/dL Calcium (8.4-10.2) mg/dL Microbiology - Last 24 Hours (Table) 12/22/23 18:47 Gram Stain - Preliminary Dialysate 12/20/23 07:06 Gram Stain - Preliminary Peritoneal Fluid Body Fluid Culture - Preliminary 12/21/23 13:07 Gram Stain - Preliminary Dialysate Body Fluid Culture - Preliminary 12/20/23 08:54 Blood Culture - Preliminary Blood Assessment and Plan (1) Peritoneal dialysis catheter infection Current Visit: Yes Status: Acute Code(s): T85.71XA - INFECT/INFLM REACTION DUE TO PERITON DIALYSIS CATHETER, INIT SNOMED Code(s): 481801803 (2) Peritonitis Current Visit: Yes Status: Acute Code(s): K65.9 - PERITONITIS, UNSPECIFIED SNOMED Code(s): 05580247 Plan: 1patient with abdominal pain cloudy peritoneal fluid concerning for PD catheter associated peritonitis nursing staff mention this morning some erythema around the catheter site however I do not appreciate any or any drainage we will likely need to cover for the gram-positive skin lindsay to be the likely pathogen gram- negative infection less likely would not have excluded 2patient did have significant elevated white count in the peritoneal fluid, peritoneal fluid and blood cultures currently pending 3patient did have some clinical improvement as well as improvement in the peritoneal fluid cell count and clarity, however culture remains to be pending patient continue with vancomycin pharmacy to dose systemically and Fortaz int raperitoneally while waiting for the culture to finalize, questions were answered Dictation was produced using [employer] dictation software. please excuse any grammatical, word or spelling errors. Time with Patient: Less than 30
[2023-12-23 20:25] LABS: Glucose,Whole Blood 106 mg/dL (70-110)
[2023-12-23 21:44] LABS: Glucose,Whole Blood 79 mg/dL (70-110)
[2023-12-24 06:02] LABS: Glucose,Whole Blood 106 mg/dL (70-110)
[2023-12-24 10:44] LABS: African American GFR (CKD) 25 (>60 ml/min/1.73 sqM); Non-African American GFR(CKD) 21 (>60 ml/min/1.73 sqM)
[2023-12-24 10:49] LABS: Vancomycin,Random 17.7 ug/mL
[2023-12-24 11:39] LABS: Glucose,Whole Blood 172 mg/dL (70-110)
--- NOTE | 2023-12-24 12:01 | P.PN ---
Subjective Progress Note Date: 12/24/23 Principal diagnosis: Acute on chronic hypoxic respiratory failure secondary to fluid overload This is a 58-year-old male patient who is very well-known to me. The patient is morbidly obese with a body mass index of 60. The patient has obstructive sleep apnea maintained on BiPAP on outpatient basis. His baseline AHI 78.3 and the patient has been maintained on treatment. He also has advanced COPD, end-stage renal disease and he undergoes peritoneal dialysis at home. He has peripheral vascular disease and previous BKA of the left lower extremity, coronary disease, diabetes mellitus type 2, hypertension hyperlipidemia and previous history of s moking. The patient came into the hospital because of progressive worsening shortness of breath. He was undergoing peritoneal dialysis without any significant improvement in his respiratory status. Based on that, the patient ended up coming into the emergency department for further evaluation. Initial chest x-ray was consistent with cardiomegaly and pulm vascular congestion and small effusions consistent with CHF and fluid overload. Note that his last echocardiogram that was done back in 2019 showed a preserved LV function and the patient was found to have an ejection fraction of 50 to 55% back then. Rest of the blood work shows a WBC count of 8.8 with a hemoglobin 10.5 and a platelet count of 235. Normal coagulation profile. BUN is 53 with a creatinine of 2.6. Electrolytes are stable with a potassium level of 5.4. Liver function tests are essentially within normal limits. proBNP level is 5416 and troponin is less than 0.01. The patient has no altered mentation. No chest pain. He did not utilize BiPAP overnight to the emergency department and the patient is currently off the BiPAP maintained on oxygen by nasal cannula at 3 L. The patient was also started on diuretics. The patient was started on IV Lasix and is currently receiving 60 mg every 12 hours and the patient is producing excellent amount of urine output in combination with Zaroxolyn. He seems to be in negative fluid balance. Awaiting nephrology consultation. No other significant events otherwise for now. He is free of any chest pain. No altered mentation. His EKG showed normal sinus rhythm along with old Q waves involving the anteroseptal leads. 12/18/2023, the patient is breathing much easier. He is currently on room air oxygen with a pulse ox of 92%. He was diuresed adequately. The patient was on a combination of Lasix 60 mg for 12 hours and the patient was also on Zaroxolyn. He is undergoing peritoneal dialysis. He utilized the BiPAP overnight at a pressure of 10 over 5 cm of water. Electrolytes from today show a potassium level of 5.1, BUN 66 with a creatinine of 2.7. Rest of the medications remain unchanged. BP is under better control. He is currently on metoprolol XL 100 mg p.o. daily, Norvasc 5 mg p.o. twice a day in addition to his diuretics. Hydralazine is also being administered a dose of 50 mg p.o. 4 times daily and Imdur 60 mg p.o. daily. He is undergoing PD with 2.5% dextrose solution every 6 hours. Echocardiogram was ordered. Patient was evaluated today on 12/19/2023, patient is feeling better, breathing easier, remains on diuretics, remains on bronchodilators, patient is receiving Lasix 60 mg every 12 hours, he is also on Zaroxolyn. Undergoing peritoneal dialysis. Patient is on BiPAP at night with a pressure of 10/5. Labs today showed relatively normal basic metabolic profile BUN is 65 creatinine 2.98 follow-up chest x-ray is pending, last chest x-ray showed evidence of pulmonary edema. Patient was reevaluated today on 12/20/2023, patient is not doing well today, apparently he had intermittent episodes of confusion last night, patient was found to have cloudy dialysate this morning, and fluid analysis suggestive of peritonitis, the fluid from the peritoneal cavity/fluid dialysate showed 14,254 WBC count, and 95% PMNs. This is clearly consistent with acute peritonitis from his peritoneal dialysis. Patient was started on intraperitoneal Fortaz, and IV vancomycin. His WBC count today is 10.2 hemoglobin 9.4 basic metabolic profile is normal BUN is 67 creatinine 3.0 Patient was seen today on 12/21/2023, patient is doing well, on antibiotics for his peritonitis, patient is on peritoneal dialysis and he developed acute perito nitis. Pulmonary mauricio he is doing well, no cough no wheezing no shortness of breath, patient has very minimal abdominal discomfort, is at bedside. Patient has end-stage renal disease, on peritoneal dialysis, now with peritonitis, receiving intraperitoneal Fortaz. And is also on IV vancomycin Patient was reevaluated today on 12/22/2023, patient remains on intraperitoneal antibiotics, patient is feeling better, remains at bedside, patient does not seem to be in any distress. Denies any shortness of breath or cough or wheezing, on 2 L nasal cannula with O2 saturation of 95 to 97%. WBC count is 7.7 hemoglobin 9.4 basic metabolic profile is normal bicarb is 34 BUN is 60 creatinine 3.07 his last chest x-ray from 3 days ago showed evidence of fluid overload. And interstitial edema Patient was evaluated today on 12/24/2023, patient is doing well, relatively asymptomatic. Hardly any pulmonary symptoms, patient was supposed to be discharged home yesterday, however he developed nausea and vomiting, and his discharge plan was canceled. Today he is feeling better, he is tolerating pured diet, and does not seem to be in any distress. Cultures from the dialysate/peritoneal fluid remain negative. Patient remains on antibiotics as per ID on the case Objective - Vital Signs Vital signs: Vital Signs Temp 98.2 F 12/24/23 09:30 Pulse 68 12/24/23 09:30 Resp 17 12/24/23 09:30 BP 144/74 12/24/23 09:30 Pulse Ox 94 L 12/24/23 09:30 FiO2 45 12/21/23 04:07 Intake & Output 12/23/23 12/24/23 12/24/23 18:59 06:59 18:59 Intake Total 0 0 Output Total 400 425 Balance -400 -425 Weight 88.5 kg Intake: Oral 0 0 Output: Urine 400 400 Emesis 25 Other: Voiding Method Urinal Urinal Urinal # Voids 1 1 # Bowel Movements 1 - Exam General: Reveals a 58-year-old male in no distress, on room air Skin: Skin is warm and dry and no rashes or lesions are noted. Eye: Pupils are equal, round and reactive to light, extra-ocular movements are intact; there is normal conjunctiva bilaterally. Ears, nose, mouth and throat: There are moist mucous membranes and no oral lesions. Neck: The neck is supple, there is no tenderness or JVD. Cardiovascular: There is a regular rate and rhythm. No murmur, rub or gallop is appreciated. Respiratory: Clear bilaterally no rhonchi no wheezes Gastrointestinal: Soft, non-distended, non-tender abdomen without masses or organomegaly noted. There is no rebound or guarding present. Bowel sounds are unremarkable. Back: There is no tenderness to palpation in the midline. There is no obvious deformity. Musculoskeletal: There is a left below-knee amputation. 1+ right lower extremity edema Neurological: CN II-XII intact, Cranial nerves III through XII are intact. There are no obvious motor or sensory deficits. Coordination appears grossly intact. Speech is normal. Psychiatric: Cooperative, appropriate mood & affect, normal judgment. - Labs CBC & Chem 7: 12/22/23 08:18 12/24/23 07:57 Labs: Abnormal Lab Results - Last 24 Hours (Table) 12/23/23 12/24/23 12/24/23 Range/Units 16:16 07:57 11:37 Creatinine 3.06 H (0.66-1.25) mg/dL POC Glucose (mg/dL) 184 H 172 H (70-110) mg/dL Microbiology - Last 24 Hours (Table) 12/20/23 07:06 Gram Stain - Final Peritoneal Fluid Body Fluid Culture - Final 12/21/23 13:07 Gram Stain - Preliminary Dialysate Body Fluid Culture - Preliminary 12/22/23 18:47 Gram Stain - Preliminary Dialysate Body Fluid Culture - Preliminary 12/20/23 08:54 Blood Culture - Preliminary Blood Assessment and Plan Assessment: Impression: Acute peritonitis based on abnormal dialysate, cultures have been negative so far. Acute on chronic hypoxic respiratory failure essentially due to fluid overload. Remains on diuretics. Patient has acute diastolic congestive heart failure. Shortness of breath secondary to above, clinically improving End-stage renal disease currently undergoing peritoneal dialysis, 2.5 dextrose solution 4 times a day Morbid obesity Obstructive sleep apnea, severe with a AHI of 78 Advanced COPD Peripheral vascular disease with previous BKA on the left End-stage renal disease presently on peritoneal dialysis Coronary artery disease Diabetes mellitus, with a component of steroid-induced hyperglycemia the patient was given IV Solu-Medrol in the emergency department. 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 Continue diuretics Continue peritoneal dialysis Continue bronchodilators for COPD will clear the patient for discharge if cleared by other consultants for Will continue to follow. Time with Patient: Less than 30
--- NOTE | 2023-12-24 12:24 | P.PN ---
Subjective patient is seen for follow-up for end-stage renal disease. Currently maintained on peritoneal dialysis. No complaints of abdominal pain. Nausea is somewhat improved. Objective - Vital Signs Vital signs: Vital Signs Temp 98.2 F 12/24/23 09:30 Pulse 68 12/24/23 09:30 Resp 17 12/24/23 09:30 BP 144/74 12/24/23 09:30 Pulse Ox 94 L 12/24/23 09:30 FiO2 45 12/21/23 04:07 Intake & Output 12/23/23 12/24/23 12/24/23 18:59 06:59 18:59 Intake Total 0 0 Output Total 400 425 Balance -400 -425 Weight 88.5 kg Intake: Oral 0 0 Output: Urine 400 400 Emesis 25 Other: Voiding Method Urinal Urinal Urinal # Voids 1 1 # Bowel Movements 1 - Exam patient is awake, comfortable, no acute distress. Examination of the heart S1 and S2 Examination of the lungs bilateral breath sounds are heard Abdomen is soft nontender Examination of lower extremity shows no edema, left BKA [employer] exam grossly intact - Labs CBC & Chem 7: 12/22/23 08:18 12/24/23 07:57 Labs: Abnormal Lab Results - Last 24 Hours (Table) 12/23/23 12/24/23 12/24/23 Range/Units 16:16 07:57 11:37 Creatinine 3.06 H (0.66-1.25) mg/dL POC Glucose (mg/dL) 184 H 172 H (70-110) mg/dL Microbiology - Last 24 Hours (Table) 12/20/23 07:06 Gram Stain - Final Peritoneal Fluid Body Fluid Culture - Final 12/21/23 13:07 Gram Stain - Preliminary Dialysate Body Fluid Culture - Preliminary 12/22/23 18:47 Gram Stain - Preliminary Dialysate Body Fluid Culture - Preliminary 12/20/23 08:54 Blood Culture - Preliminary Blood Assessment and Plan Assessment: 1. End-stage renal disease maintained on peritoneal dialysis. 2. Volume overload. Improved. 3. Hypertension with chronic kidney disease. Stable. 4. Diabetes mellitus. 5. Chronic kidney disease mineral bone disease. 6. PD associated peritonitis. Dialysate WBC count 14,234 with PMN count of 95%; WBC count 863 with 66% PMNs dated December 21, 2023; WBC count 81 with PMNs 50% dated December 22, 2023. Started on intraperitoneal vancomycin and Fortaz December 20, 2023. Also on IV vancomycin per ID due to possible cellulitis. 7. Anemia of chronic kidney disease. On Aranesp. Plan: continue current PD exchanges. Continue with antibiotics post discharge. Patient is stable for discharge from nephrology standpoint if he is able to tolerate oral intake.
--- NOTE | 2023-12-24 14:56 | P.PN ---
Progress Note - Text Progress Note Date: 12/24/23 58-year-old male came with complaints of shortness of breath orthopnea, patient has pulm edema patient is peritoneal dialysis patient with chronic kidney disease, end-stage renal disease. Patient states he is compliant with his medications and his diet patient was on torsemide 20 mg twice a day along with metolazone 5 mg on daily basis at home. Patient was started on IV Lasix for 40 mg every 8 hourly with good urine output. He does not have any fever chills chest x-ray did not show any pneumonia did show pulm edema patient's BNP is around 5000 12/18/2023 Patient is evaluated in follow up today on the medical floor. Patient continues with scattered wheezing and is continued on scheduled updrafts as well as symbicort. Pulmonary following this. Continues on IV lasix does have improvement in his shortness of breath and is currently on room air. Maintained on peritoneal dialysis per nephrology. Sodium level 135 today, BUN 66, creatinine 2.70. 12/19/2023 Patient is evaluated today on the medical floor in follow up. Less short of breath and the scattered wheezing has resolved at this time. Patient continues with lower extremity edema. He remains on IV lasix 60 mg Q12 hour and will continue for the next 24 hours. Patient is using BiPAP at HS. He is continued on peritoneal dialysis per nephrology. Sodium level is 136, BUN of 65 and creatinine 2.98. Follow up chest xray today reveals pulmonary venous congestion without overt failure. 12/20/2023 Patient evaluated today he is lethargic. Patient with his previous 2 CAPD exchanges overnight noted to have cloudy return and abdominal pain with dialysis. Nephrology has added fortaz and vanco to the solution. Blood cultures have been obtained. His echocardiogram has come back revealing an EF of around 45%. He is continued on IV lasix. 12/21/2023 Is evaluated today in follow-up on the medical floor. He is more awake alert oriented. Blood cultures are currently pending. He continues on peritoneal dialysis every 6 hours and continue with added antibiotic and also on vancomycin per pharmacy. Family at bedside all questions were answered. December 21: Decreased appetite. Has not had a bowel movement for last 5 days. Dulcolax suppository ordered. If no result then soapsuds enema. at the bedside. Tired. Getting intraperitoneal antibiotics-started December 19. Intraperitoneal dialysis. Dialysate has been clear. December 22: Patient had some oatmeal today. Then later vomited. Had a very small BM with Dulcolax suppository. Soapsuds enema and he was supposed to be given yesterday. Again reminded the nurse this morning for the same. Getting IV ceftazidime. Remains on fluid restriction. Intraperitoneal antibiotics. December 23: Patient had a very large bowel movement with soapsuds enema yesterday. Did tolerate oatmeal this morning. at the bedside. Told to avoid narcotic. Advance diet as tolerated. Active Medications Albuterol/Ipratropium (Ipratropium-Albuterol 3 Ml Neb) 3 ml INHALATION RT-QID [facility] Last Admin: 12/24/23 11:16 Dose: Not Given Albuterol/Ipratropium (Ipratropium-Albuterol 3 Ml Neb) 3 ml INHALATION RT-Q2H PRN PRN Reason: Shortness Of Breath Or Wheezing Allopurinol (Allopurinol 100 Mg Tab) 100 mg PO DAILY [facility] Last Admin: 12/24/23 09:34 Dose: 100 mg Amlodipine Besylate (Amlodipine 5 Mg Tab) 5 mg PO BID [facility] Last Admin: 12/24/23 09:34 Dose: 5 mg Aspirin (Aspirin 81 Mg) 81 mg PO HS [facility] Last Admin: 12/23/23 20:46 Dose: 81 mg Atorvastatin Calcium (Atorvastatin 40 Mg Tab) 40 mg PO HS [facility] Last Admin: 12/23/23 20:46 Dose: 40 mg Bismuth Subsalicylate (Bismuth Subsalicylate 4,192 Mg/240 Ml Bottle) 524 mg PO Q1HR PRN PRN Reason: Diarrhea Budesonide/Formoterol Fumarate (Symbicort 80-4.5 Mcg Inhaler) 2 puff INHALATION RT-BID [facility] Last Admin: 12/24/23 07:49 Dose: Not Given Darbepoetin Landen (Darbepoetin Landen 40 Mcg/0.4 Ml Syringe) 40 mcg SQ Q7D [facility] Last Admin: 12/21/23 12:23 Dose: 40 mcg Dextrose/Water (Dextrose 50% Syringe 50 Ml) 25 ml IVP PER PROTOCOL PRN; Protocol PRN Reason: Hypoglycemia Dextrose/Water (Dextrose 50% Syringe 50 Ml) 50 ml IVP PER PROTOCOL PRN; Protocol PRN Reason: Hypoglycemia Docusate Sodium (Docusate 100 Mg Cap) 100 mg PO BID [facility] Last Admin: 12/24/23 09:34 Dose: 100 mg Fluoxetine HCl (Fluoxetine Hcl 20 Mg Cap) 40 mg PO BID [facility] Last Admin: 12/24/23 09:34 Dose: 40 mg Furosemide (Furosemide 10 Mg/Ml 10 Ml Vial) 60 mg IV Q12H [facility] Last Admin: 12/24/23 12:33 Dose: 60 mg Heparin Sodium (Porcine) (Heparin Sodium,Porcine 5,000 Unit/Ml 1 Ml Vial) 5,000 unit SQ Q8HR [facility] Last Admin: 12/24/23 09:34 Dose: Not Given Hydralazine HCl (Hydralazine Hcl 50 Mg Tab) 75 mg PO QID [facility] Last Admin: 12/24/23 12:34 Dose: 75 mg Peritoneal Dialysis Solution (Delflex With 2.5% Dextrose (2,500 Ml)) 62.5 g in 2,500 mls @ 0 mls/hr INTRAPERIT 0000,0600,1800 [facility]; Protocol Last Admin: 12/24/23 05:52 Dose: 2,500 mls/hr Ceftazidime 1 gm/ Peritoneal (Dialysis Solution) 2,500 mls @ 416.667 mls/hr INTRAPERIT 1200 [facility] Last Admin: 12/24/23 12:53 Dose: 416.667 mls/hr Vancomycin HCl 2,000 mg/ (Sodium Chloride) 500 mls @ 167 mls/hr IVPB ONCE ONE Stop: 12/24/23 17:59 Insulin Aspart (Insulin Aspart (Novolog) 100 Unit/Ml Vial) 0 unit SQ ACHS [facility]; Protocol Last Admin: 12/24/23 12:34 Dose: 2 unit Insulin Aspart (Insuln Asp Prt/Insulin Aspart 100 Unit/Ml 10 Ml Vial) 100 unit SQ AC-TID [facility] Last Admin: 12/24/23 12:34 Dose: Not Given Isosorbide Mononitrate (Isosorbide Mononitrate Er 60 Mg Tab.Er.24h) 60 mg PO DAILY [facility] Last Admin: 12/24/23 09:34 Dose: 60 mg Lactulose (Lactulose 20 Gm/30 Ml Cup) 10 gm PO TID PRN PRN Reason: Constipation Last Admin: 06/21/24 09:37 Dose: 10 gm Loratadine (Loratadine 10 Mg Tab) 10 mg PO HS [facility] Last Admin: 12/23/23 20:46 Dose: 10 mg Metoprolol Succinate (Metoprolol Succinate (Er) 100 Mg Tab.Er.24h) 100 mg PO DAILY [facility] Last Admin: 12/24/23 09:34 Dose: 100 mg Miscellaneous Information (Vancomycin Iv Per Pharmacy 1 Each [facility] [place]) 1 each MISCELLANE DIRECTED PRN; Protocol PRN Reason: Per Protocol Naloxone HCl (Naloxone 0.4 Mg/Ml 1 Ml Vial) 0.2 mg IVP Q2M PRN PRN Reason: Opioid Reversal Ondansetron HCl (Ondansetron 4 Mg/2 Ml Vial) 4 mg IVP Q6HR PRN PRN Reason: Nausea And Vomiting Last Admin: 12/23/23 09:38 Dose: 4 mg Oxycodone/Acetaminophen (Oxycodone-Apap 10-325mg 1 Each Tab) 1 each PO Q6HR [facility] Last Admin: 12/24/23 12:24 Dose: Not Given Pantoprazole Sodium (Pantoprazole 40 Mg Tablet) 40 mg PO AC-BID [facility] Last Admin: 12/24/23 06:33 Dose: 40 mg Tamsulosin HCl (Tamsulosin 0.4 Mg Cap.Er.24h) 0.4 mg PO DAILY [facility] Last Admin: 12/24/23 09:34 Dose: 0.4 mg Social history: Lives with his . Smokes about half a pack a day for many years. No alcohol. Did use marijuana in the past. Physical examination: VITAL SIGNS: 98, 69, 17, 138 x 76, 94% room air GENERAL: In a recliner comfortable EYES: Pupils equal. Conjunctiva julieta l. HEENT: External appearance of nose and ears normal, oral cavity grossly normal. NECK: JVD not raised; masses not palpable. HEART: First and second heart sounds are normal; no edema. LUNGS:[ Respiratory rate increased decreased breath sounds. ABDOMEN: Soft, nontender, liver spleen not palpable, no masses palpable. PSYCH: Alert and oriented x3; mood and affect normal MUSCULOSKELETAL: Left BKA. With prosthesis. Right foot second third and fourth toe amputated. INVESTIGATIONS, reviewed in the clinical context: December 21: White count 7.7 hemoglobin 9.4 platelets 246 sodium 136 potassium 4.2 BUN 60 creatinine 3.07 2D echo: EF 45% Assessment and plan: -Acute congestive heart failure exacerbation from systolic dysfunction EF 45%: Slow to respond Change IV Lasix to Demadex -End-stage kidney disease on peritoneal dialysis Nephrology following. -Peritoneal dialysis catheter associated peritonitis. Dialysate has been clear Started on IV vancomycin and Fortaz on December 19.-To continue outpatient -Anemia of chronic kidney disease Aranesp -Essential hypertension Toprol-XL 100 mg a day. Amlodipine 5 mg twice daily. Hydralazine 75 mg 4 times daily -Diabetes mellitus type 2, chronically insulin Follow Accu-Cheks with sliding scale insulin -BPH Flomax -Hyperlipidemia Lipitor 80 mg nightly -Depression anxiety Prozac 40 mg twice daily -Diabetic peripheral neuropathy Neurontin 400 mg nightly -COPD in a current smoker inhalers -Left below-knee amputation with a prosthesis. Right foot second third and fourth toe amputation. -Full code Cussed with patient . If tolerate diet tolerated discharge tomorrow.
[2023-12-24 16:32] LABS: Glucose,Whole Blood 189 mg/dL (70-110)
--- NOTE | 2023-12-24 16:33 | P.PN ---
Subjective Progress Note Date: 12/24/23 Principal diagnosis: Reason for vomitus PD catheter associated peritonitis Patient is a 58-year-old male with a past medical history significant for coronary artery disease COPD diabetes mellitus hypertension hyperlipidemia end- stage renal renal disease on peritoneal dialysis for about a year presenting to the hospital with shortness of breath patient subsequent developing abdominal pain noticed to have a cloudy peritoneal fluid, some Erythema around the dialysis catheter concerning for PD catheter associated peritonitis. On today's evaluation that is 12/24/2023,the patient remains to be afebrile, patient is on room air not requiring supplemental oxygen and denies any sh ortness of breath no chest pain or cough.Patient denies having any nausea or vomiting, no abdominal pain and did not have any bowel movement. Patient creatinine 3.06 abdominal culture still pending Objective - Vital Signs Vital signs: Vital Signs Temp 98.2 F 12/24/23 09:30 Pulse 68 12/24/23 09:30 Resp 17 12/24/23 09:30 BP 144/74 12/24/23 09:30 Pulse Ox 94 L 12/24/23 09:30 FiO2 45 12/21/23 04:07 Intake & Output 12/23/23 12/24/23 12/24/23 18:59 06:59 18:59 Intake Total 0 0 Output Total 400 425 Balance -400 -425 Weight 88.5 kg Intake: Oral 0 0 Output: Urine 400 400 Emesis 25 Other: Voiding Method Urinal Urinal Urinal # Voids 1 1 # Bowel Movements 1 - Exam GENERAL DESCRIPTION: Middle-aged male lying in bed in no distress RESPIRATORY SYSTEM: Unlabored breathing , decreased breath sounds at bases HEART: S1 S2 regular rate and rhythm , ABDOMEN: Soft , mild distention but no tenderness EXTREMITIES: No edema feet - Labs CBC & Chem 7: 12/22/23 08:18 12/24/23 07:57 Labs: Abnormal Lab Results - Last 24 Hours (Table) 12/23/23 12/24/23 12/24/23 Range/Units 16:16 07:57 11:37 Creatinine 3.06 H (0.66-1.25) mg/dL POC Glucose (mg/dL) 184 H 172 H (70-110) mg/dL Microbiology - Last 24 Hours (Table) 12/20/23 07:06 Gram Stain - Final Peritoneal Fluid Body Fluid Culture - Final 12/21/23 13:07 Gram Stain - Preliminary Dialysate Body Fluid Culture - Preliminary 12/22/23 18:47 Gram Stain - Preliminary Dialysate Body Fluid Culture - Preliminary 12/20/23 08:54 Blood Culture - Preliminary Blood Assessment and Plan (1) Peritoneal dialysis catheter infection Current Visit: Yes Status: Acute Code(s): T85.71XA - INFECT/INFLM REACTION DUE TO PERITON DIALYSIS CATHETER, INIT SNOMED Code(s): 773318880 (2) Peritonitis Current Visit: Yes Status: Acute Code(s): K65.9 - PERITONITIS, UNSPECIFIED SNOMED Code(s): 58626958 Plan: 1patient with abdominal pain cloudy peritoneal fluid concerning for PD catheter associated peritonitis nursing staff mention this morning some erythema around the catheter site however I do not appreciate any or any drainage we will likely need to cover for the gram-positive skin lindsay to be the likely pathogen gram- negative infection less likely would not have excluded 2patient did have significant elevated white count in the peritoneal fluid, peritoneal fluid and blood cultures currently pending 3patient did have improvement peritoneal fluid cell count and clarity as well as symptoms of abdominal pain, however culture remains to be pending 4-patient continue with vancomycin pharmacy to dose systemically and Fortaz intraperitoneally while waiting for the culture to finalize, questions were answered Dictation was produced using [employer] dictation software. please excuse any grammatical, word or spelling errors. Time with Patient: Less than 30
[2023-12-24] MEDS: VANCOMYCIN 2,000 MG in SODIUM CHLORIDE 0.9% 500 ML 500 ML IVPB ONE (16:34)
[2023-12-24 20:07] LABS: Glucose,Whole Blood 216 mg/dL (70-110)
[2023-12-24] MEDS: TORSEMIDE 20 MG TAB PO SCH (21:09)
[2023-12-25 05:57] LABS: Glucose,Whole Blood 244 mg/dL (70-110)
[2023-12-25 05:59] VITALS: RESP 17
[2023-12-25 09:45] VITALS: BP 161/78; PULSE 76; TEMP 98.6
--- NOTE | 2023-12-25 11:28 | P.PN ---
Subjective Progress Note Date: 12/25/23 Principal diagnosis: Acute on chronic hypoxic respiratory failure secondary to fluid overload This is a 58-year-old male patient who is very well-known to me. The patient is morbidly obese with a body mass index of 60. The patient has obstructive sleep apnea maintained on BiPAP on outpatient basis. His baseline AHI 78.3 and the patient has been maintained on treatment. He also has advanced COPD, end-stage renal disease and he undergoes peritoneal dialysis at home. He has peripheral vascular disease and previous BKA of the left lower extremity, coronary disease, diabetes mellitus type 2, hypertension hyperlipidemia and previous history of s moking. The patient came into the hospital because of progressive worsening shortness of breath. He was undergoing peritoneal dialysis without any significant improvement in his respiratory status. Based on that, the patient ended up coming into the emergency department for further evaluation. Initial chest x-ray was consistent with cardiomegaly and pulm vascular congestion and small effusions consistent with CHF and fluid overload. Note that his last echocardiogram that was done back in 2019 showed a preserved LV function and the patient was found to have an ejection fraction of 50 to 55% back then. Rest of the blood work shows a WBC count of 8.8 with a hemoglobin 10.5 and a platelet count of 235. Normal coagulation profile. BUN is 53 with a creatinine of 2.6. Electrolytes are stable with a potassium level of 5.4. Liver function tests are essentially within normal limits. proBNP level is 5416 and troponin is less than 0.01. The patient has no altered mentation. No chest pain. He did not utilize BiPAP overnight to the emergency department and the patient is currently off the BiPAP maintained on oxygen by nasal cannula at 3 L. The patient was also started on diuretics. The patient was started on IV Lasix and is currently receiving 60 mg every 12 hours and the patient is producing excellent amount of urine output in combination with Zaroxolyn. He seems to be in negative fluid balance. Awaiting nephrology consultation. No other significant events otherwise for now. He is free of any chest pain. No altered mentation. His EKG showed normal sinus rhythm along with old Q waves involving the anteroseptal leads. 12/18/2023, the patient is breathing much easier. He is currently on room air oxygen with a pulse ox of 92%. He was diuresed adequately. The patient was on a combination of Lasix 60 mg for 12 hours and the patient was also on Zaroxolyn. He is undergoing peritoneal dialysis. He utilized the BiPAP overnight at a pressure of 10 over 5 cm of water. Electrolytes from today show a potassium level of 5.1, BUN 66 with a creatinine of 2.7. Rest of the medications remain unchanged. BP is under better control. He is currently on metoprolol XL 100 mg p.o. daily, Norvasc 5 mg p.o. twice a day in addition to his diuretics. Hydralazine is also being administered a dose of 50 mg p.o. 4 times daily and Imdur 60 mg p.o. daily. He is undergoing PD with 2.5% dextrose solution every 6 hours. Echocardiogram was ordered. Patient was evaluated today on 12/19/2023, patient is feeling better, breathing easier, remains on diuretics, remains on bronchodilators, patient is receiving Lasix 60 mg every 12 hours, he is also on Zaroxolyn. Undergoing peritoneal dialysis. Patient is on BiPAP at night with a pressure of 10/5. Labs today showed relatively normal basic metabolic profile BUN is 65 creatinine 2.98 follow-up chest x-ray is pending, last chest x-ray showed evidence of pulmonary edema. Patient was reevaluated today on 12/20/2023, patient is not doing well today, apparently he had intermittent episodes of confusion last night, patient was found to have cloudy dialysate this morning, and fluid analysis suggestive of peritonitis, the fluid from the peritoneal cavity/fluid dialysate showed 14,254 WBC count, and 95% PMNs. This is clearly consistent with acute peritonitis from his peritoneal dialysis. Patient was started on intraperitoneal Fortaz, and IV vancomycin. His WBC count today is 10.2 hemoglobin 9.4 basic metabolic profile is normal BUN is 67 creatinine 3.0 Patient was seen today on 12/21/2023, patient is doing well, on antibiotics for his peritonitis, patient is on peritoneal dialysis and he developed acute perito nitis. Pulmonary mauricio he is doing well, no cough no wheezing no shortness of breath, patient has very minimal abdominal discomfort, is at bedside. Patient has end-stage renal disease, on peritoneal dialysis, now with peritonitis, receiving intraperitoneal Fortaz. And is also on IV vancomycin Patient was reevaluated today on 12/22/2023, patient remains on intraperitoneal antibiotics, patient is feeling better, remains at bedside, patient does not seem to be in any distress. Denies any shortness of breath or cough or wheezing, on 2 L nasal cannula with O2 saturation of 95 to 97%. WBC count is 7.7 hemoglobin 9.4 basic metabolic profile is normal bicarb is 34 BUN is 60 creatinine 3.07 his last chest x-ray from 3 days ago showed evidence of fluid overload. And interstitial edema Patient was evaluated today on 12/24/2023, patient is doing well, relatively asymptomatic. Hardly any pulmonary symptoms, patient was supposed to be discharged home yesterday, however he developed nausea and vomiting, and his discharge plan was canceled. Today he is feeling better, he is tolerating pured diet, and does not seem to be in any distress. Cultures from the dialysate/peritoneal fluid remain negative. Patient remains on antibiotics as per ID on the case Evaluated today on 12/25/2023, patient is doing great, asymptomatic, his discharge yesterday was delayed by the admitting physician for some reason, patient is doing great continues to do well, no active pulmonary symptoms, on room air, no nausea no vomiting no abdominal pain Objective - Vital Signs Vital signs: Vital Signs Temp 98.6 F 12/25/23 07:55 Pulse 76 12/25/23 07:55 Resp 17 12/25/23 07:55 BP 161/78 12/25/23 07:55 Pulse Ox 96 12/25/23 07:55 FiO2 45 12/21/23 04:07 Intake & Output 12/24/23 12/25/23 12/25/23 18:59 06:59 18:59 Intake Total 118 360 Output Total 600 550 Balance -482 -550 360 Weight 123.5 kg Intake: Oral 118 360 Output: Urine 600 550 Other: Voiding Method Urinal Urinal Urinal # Bowel Movements 1 1 1 - Exam General: Reveals a 58-year-old male in no distress, on room air Skin: Skin is warm and dry and no rashes or lesions are noted. Eye: Pupils are equal, round and reactive to light, extra-ocular movements are intact; there is normal conjunctiva bilaterally. Ears, nose, mouth and throat: There are moist mucous membranes and no oral lesions. Neck: The neck is supple, there is no tenderness or JVD. Cardiovascular: There is a regular rate and rhythm. No murmur, rub or gallop is appreciated. Respiratory: Clear bilaterally no rhonchi no wheezes Gastrointestinal: Soft, non-distended, non-tender abdomen without masses or organomegaly noted. There is no rebound or guarding present. Bowel sounds are u nremarkable. Back: There is no tenderness to palpation in the midline. There is no obvious deformity. Musculoskeletal: There is a left below-knee amputation. 1+ right lower extremity edema Neurological: CN II-XII intact, Cranial nerves III through XII are intact. There are no obvious motor or sensory deficits. Coordination appears grossly intact. Speech is normal. Psychiatric: Cooperative, appropriate mood & affect, normal judgment. - Labs CBC & Chem 7: 12/22/23 08:18 12/24/23 07:57 Labs: Abnormal Lab Results - Last 24 Hours (Table) 12/24/23 12/24/23 12/24/23 Range/Units 11:37 16:31 20:06 POC Glucose (mg/dL) 172 H 189 H 216 H (70-110) mg/dL 12/25/23 Range/Units 05:55 POC Glucose (mg/dL) 244 H (70-110) mg/dL Microbiology - Last 24 Hours (Table) 12/21/23 13:07 Gram Stain - Preliminary Dialysate Body Fluid Culture - Preliminary 12/22/23 18:47 Gram Stain - Preliminary Dialysate Body Fluid Culture - Preliminary Assessment and Plan Assessment: Impression: Acute peritonitis based on abnormal dialysate, cultures have been negative so far. Acute on chronic hypoxic respiratory failure essentially due to fluid overload. Remains on diuretics. Patient has acute diastolic congestive heart failure. Shortness of breath secondary to above, clinically improving End-stage renal disease currently undergoing peritoneal dialysis, 2.5 dextrose solution 4 times a day Morbid obesity Obstructive sleep apnea, severe with a AHI of 78 Advanced COPD Peripheral vascular disease with previous BKA on the left End-stage renal disease presently on peritoneal dialysis Coronary artery disease Diabetes mellitus, with a component of steroid-induced hyperglycemia the patient was given IV Solu-Medrol in the emergency department. Hypertension, with an elevated blood pressure Hyperlipidemia Acid reflux History of smoking History of left below-knee amputation, and history of right third fourth and fifth toe amputation Recommendation: Agree with discharge planning if cleared by other consultants Continue diuretics Continue peritoneal dialysis Continue bronchodilators for COPD Time with Patient: Less than 30
--- NOTE | 2023-12-25 18:44 | P.DS ---
Providers Date of admission: 12/16/23 19:24 Expected date of discharge: 12/25/23 Attending physician: Ruben Paz Consults: 12/16/23 19:20 Consult Physician Routine Consulting Provider: Byron Woods Consult Reason/Comments: chf Do you want consulting provider notified?: Yes Consult Physician Routine Consulting Provider: Александр Miller Consult Reason/Comments: chf/copd on bipap Do you want consulting provider notified?: Yes 12/17/23 09:52 Consult Physician Routine Consulting Provider: Marci Tamez Consult Reason/Comments: Peritoneal dialysis Do you want consulting provider notified?: Yes 12/20/23 06:21 Consult Physician Routine Consulting Provider: Donovan Zambrano Consult Reason/Comments: cloudy peritoneal fluid, CAPD patient Do you want consulting provider notified?: Yes, Notify in am Primary care physician: [facility] Course: 58-year-old male came with complaints of shortness of breath orthopnea, patient has pulm edema patient is peritoneal dialysis patient with chronic kidney disease, end-stage renal disease. Patient states he is compliant with his medications and his diet patient was on torsemide 20 mg twice a day along with metolazone 5 mg on daily basis at home. Patient was started on IV Lasix for 40 mg every 8 hourly with good urine output. He does not have any fever chills chest x-ray did not show any pneumonia did show pulm edema patient's BNP is around 5000 12/18/2023 Patient is evaluated in follow up today on the medical floor. Patient continues with scattered wheezing and is continued on scheduled updrafts as well as symbicort. Pulmonary following this. Continues on IV lasix does have improvement in his shortness of breath and is currently on room air. Maintained on peritoneal dialysis per nephrology. Sodium level 135 today, BUN 66, creatinine 2.70. 12/19/2023 Patient is evaluated today on the medical floor in follow up. Less short of breath and the scattered wheezing has resolved at this time. Patient continues with lower extremity edema. He remains on IV lasix 60 mg Q12 hour and will continue for the next 24 hours. Patient is using BiPAP at HS. He is continued on peritoneal dialysis per nephrology. Sodium level is 136, BUN of 65 and creatinine 2.98. Follow up chest xray today reveals pulmonary venous congestion without overt failure. 12/20/2023 Patient evaluated today he is lethargic. Patient with his previous 2 CAPD exchanges overnight noted to have cloudy return and abdominal pain with dialysis. Nephrology has added fortaz and vanco to the solution. Blood cultures have been obtained. His echocardiogram has come back revealing an EF of around 45%. He is continued on IV lasix. 12/21/2023 Is evaluated today in follow-up on the medical floor. He is more awake alert oriented. Blood cultures are currently pending. He continues on peritoneal dialysis every 6 hours and continue with added antibiotic and also on vancomycin per pharmacy. Family at bedside all questions were answered. December 21: Decreased appetite. Has not had a bowel movement for last 5 days. Dulcolax suppository ordered. If no result then soapsuds enema. at the bedside. Tired. Getting intraperitoneal antibiotics-started December 19. Intraperitoneal dialysis. Dialysate has been clear. December 22: Patient had some oatmeal today. Then later vomited. Had a very small BM with Dulcolax suppository. Soapsuds enema and he was supposed to be given yesterday. Again reminded the nurse this morning for the same. Getting IV ceftazidime. Remains on fluid restriction. Intraperitoneal antibiotics. December 23: Patient had a very large bowel movement with soapsuds enema yesterday. Did tolerate oatmeal this morning. at the bedside. Told to avoid narcotic. Advance diet as tolerated. December 24: Patient doing well. Tolerating his diet. No nausea. Will be discharged. Blood pressure medication adjusted and prescription sent. He will complete his antibiotics with his peritoneal dialysis arranged by nephrology. Discussion and discharge planning more than 35 minutes Social history: Lives with his . Smokes about half a pack a day for many years. No alcohol. Did use marijuana in the past. Physical examination: VITAL SIGNS: 98.6, 76, 17, 161 x 78, 96% room air GENERAL: Comfortable EYES: Pupils equal. Conjunctiva julieta l. HEENT: External appearance of nose and ears normal, oral cavity grossly normal. NECK: JVD not raised; masses not palpable. HEART: First and second heart sounds are normal; no edema. LUNGS:[ Respiratory rate-normal decreased breath sounds. ABDOMEN: Soft, nontender, liver spleen not palpable, no masses palpable. PSYCH: Alert and oriented x3; mood and affect normal MUSCULOSKELETAL: Left BKA. With prosthesis. Right foot second third and fourth toe amputated. INVESTIGATIONS, reviewed in the clinical context: December 21: White count 7.7 hemoglobin 9.4 platelets 246 sodium 136 potassium 4.2 BUN 60 creatinine 3.07 2D echo: EF 45% Assessment and plan: -Acute congestive heart failure exacerbation from systolic dysfunction EF 45%: Change IV Lasix to Demadex -End-stage kidney disease on peritoneal dialysis Nephrology following. -Peritoneal dialysis catheter associated peritonitis. Dialysate has been clear Started on IV vancomycin and Fortaz on December 19.-Will complete outpatient -Anemia of chronic kidney disease Aranesp -Essential hypertension Toprol-XL 100 mg a day. Amlodipine 5 mg twice daily. Hydralazine 75 mg 4 times daily -Diabetes mellitus type 2, chronically insulin Follow Accu-Cheks with sliding scale insulin -BPH Flomax -Hyperlipidemia Lipitor 80 mg nightly -Depression anxiety Prozac 40 mg twice daily -Diabetic peripheral neuropathy Neurontin 400 mg nightly -COPD in a current smoker inhalers -Left below-knee amputation with a prosthesis. Right foot second third and fourth toe amputation. -Full code Disposition: Home Plan - Discharge Summary Discharge Rx Participant: No New Discharge Prescriptions: New hydrALAZINE HCL [Apresoline] 75 mg PO QID #120 tab Atorvastatin [Lipitor] 40 mg PO HS #30 tab Metoprolol Succinate (ER) [Toprol XL] 100 mg PO DAILY #30 tab Continue Tamsulosin [Flomax] 0.4 mg PO DAILY Albuterol Inhaler [Ventolin Hfa Inhaler] 1 - 2 puff INHALATION RT-Q6H PRN PRN Reason: Shortness Of Breath Clopidogrel [Plavix] 75 mg PO DAILY #90 tab Isosorbide Mononitrate ER [Imdur] 60 mg PO DAILY Pantoprazole [Protonix] 40 mg PO BID amLODIPine [Norvasc] 5 mg PO BID #60 tab Oxymetazoline HCl [Vicks Sinex] 1 spray EA NOSTRIL DAILY PRN PRN Reason: Allergy Symptoms Loratadine 10 mg PO HS Dulaglutide [Trulicity] 0.75 mg SQ TU Fluticasone/Umeclidin/Vilanter [Trelegy Ellipta 100-62.5-25] 1 puff INHALATION RT-DAILY oxyCODONE-APAP 10-325MG [Percocet 10-325 mg] 1 tab PO Q6H Gabapentin [Neurontin] 400 mg PO HS FLUoxetine HCL [PROzac] 40 mg PO BID Insulin NPH/Reg Insulin 70/30 [humuLIN 70/30 VIAL] See Protocol SQ AC-TID allopurinoL [Zyloprim] 100 mg PO DAILY Torsemide [Demadex] 20 mg PO BID@0900,1600 Lactulose 20 gm PO DIRECTED Aspirin EC [Ecotrin Low Dose] 81 mg PO HS Nitroglycerin Sl Tabs [Nitrostat] 0.4 mg SL Q5M PRN PRN Reason: Chest Pain Discontinued Atorvastatin [Lipitor] 80 mg PO HS #90 tab metOLazone [Zaroxolyn] 5 mg PO DAILY Metoprolol Succinate [Toprol XL] 50 mg PO DAILY hydrALAZINE HCL [Apresoline] 25 mg PO TID Discharge Medication List Tamsulosin [Flomax] 0.4 mg PO DAILY 04/14/18 [History] Albuterol Inhaler [Ventolin Hfa Inhaler] 1 - 2 puff INHALATION RT-Q6H PRN 03/09/19 [History] Clopidogrel [Plavix] 75 mg PO DAILY #90 tab 06/23/19 [Rx] Fluticasone/Umeclidin/Vilanter [Trelegy Ellipta 100-62.5-25] 1 puff INHALATION RT-DAILY 02/24/22 [History] Isosorbide Mononitrate ER [Imdur] 60 mg PO DAILY 03/11/22 [History] Pantoprazole [Protonix] 40 mg PO BID 03/11/22 [History] oxyCODONE-APAP 10-325MG [Percocet 10-325 mg] 1 tab PO Q6H 03/11/22 [History] FLUoxetine HCL [PROzac] 40 mg PO BID 09/11/23 [History] Gabapentin [Neurontin] 400 mg PO HS 09/11/23 [History] Insulin NPH/Reg Insulin 70/30 [humuLIN 70/30 VIAL] See Protocol SQ AC-TID 09/11/23 [History] amLODIPine [Norvasc] 5 mg PO BID #60 tab 09/12/23 [Rx] Aspirin EC [Ecotrin Low Dose] 81 mg PO HS 12/16/23 [History] Dulaglutide [Trulicity] 0.75 mg SQ TU 12/16/23 [History] Lactulose 20 gm PO DIRECTED 12/16/23 [History] Loratadine 10 mg PO HS 12/16/23 [History] Nitroglycerin Sl Tabs [Nitrostat] 0.4 mg SL Q5M PRN 12/16/23 [History] Oxymetazoline HCl [Vicks Sinex] 1 spray EA NOSTRIL DAILY PRN 12/16/23 [History] Torsemide [Demadex] 20 mg PO BID@0900,1600 12/16/23 [History] allopurinoL [Zyloprim] 100 mg PO DAILY 12/16/23 [History] Atorvastatin [Lipitor] 40 mg PO HS #30 tab 12/25/23 [Rx] Metoprolol Succinate (ER) [Toprol XL] 100 mg PO DAILY #30 tab 12/25/23 [Rx] hydrALAZINE HCL [Apresoline] 75 mg PO QID #120 tab 12/25/23 [Rx] Follow up Appointment(s)/Referral(s): cardiology, [Other] - 1 Week López Harris DO [Primary Care Provider] - 1-2 days Luciano Melendez DO [STAFF PHYSICIAN] - 1 Week Patient Instructions/Handouts: Peritonitis (DC) Activity/Diet/Wound Care/Special Instructions: abx per nephro with dialysis Discharge/Stand Alone Forms: Who Do I Call? Discharge Disposition: HOME SELF-CARE
--- NOTE | 2023-12-27 20:36 | CDI ---
Documentation Clarification Form Date: 12/27/2023 08:20:06 PM From: Kiera Hayes Phone: Admit Date: 12/16/2023 07:24:00 PM Patient Name: Abdifatah Meier Visit Number: [id number] Discharge Date: 12/25/2023 11:20:00 AM ATTENTION: The Clinical Documentation Specialists (CDI) and [facility] Coding Staff appreciate your assistance in clarifying documentation. Please respond to the clarification below the line at the bottom and electronically sign. The CDI & [facility] Coding staff will review the response and follow-up if needed. Please note: Queries are made part of the Legal Health Record. If you have any questions, please contact the author of this message via ITS. Dr. Byron Woods Your patient has the documented diagnosis of: Acute congestive heart failure exacerbation fromsystolicdysfunction EF 45% per Progress Note -12/23 and DCS Congestive heart failure chronic diastolicfunction with acute exacerbation per H&P, Progress Note 12/17- 12/24 Clarification regarding the type of CHF is requested. History/Risk Factors: 58yo M, AECOPD, ESRD on peritoneal dialysis, IDDMII w PVD, AHRF, neuropathy, CAD, HTN, HLD, former smoker, ACHF, noncompliant w fluid restriction Clinical Indicators: VS/Pulse OX: 81-93 BNP: 5460 Echocardiogram Results: The visualized endocardium in spite of using Definity. The LV systolic function appears to be mildlyimpairedwith EF around 45%. Nopericardial effusion Chest X Ray: Correlate forCHFotherwise consider interstitialpneumonitis. Treatment: Pt. didnotrespond well to outpatientperitoneal dialysiswas undergoing. He is currently [facility] for further workup. No signs ofpneumonia. He is currently on IV Lasix and Zaroxolyn is producing excellent urine output. Supportive withBiPAPbriefly in the emergency department, and the patient is currently on room air oxygen. Clinically improved. In your professional opinion, can you please clarify the type of CHF if known? [ X] Acute on Chronic Systolic Heart Failure (reduced EF) [ ] Acute on Chronic Diastolic Heart Failure (preserved EF) [ ] Acute on Chronic Heart Failure Systolic & Diastolic Heart Failure [ ] Other, please specify [ ] Unable to determine (Template Last Revised: August 2020) MTDD
== END 2023-12-25 11:20 | disposition home or self-care (01) | DRG 291 ==
LOC: EC 17:11 → 3SCARD 19:24
PROVIDERS: ADMIT Hospitalist; ATTEND Hospitalist
PROC: 5A09357 Assistance with Respiratory Ventilation, Less than 24 Consecutive Hours, Continuous Positive Airway Pressure (ICD-10-PCS; principal; 2023-12-16)
PROC: 3E1M39Z Irrigation of Peritoneal Cavity using Dialysate, Percutaneous Approach (ICD-10-PCS; 2023-12-17)
DX: I13.2 Hypertensive heart and chronic kidney disease with heart failure and with stage 5 chronic kidney disease, or end stage renal disease (principal); G92.8 Other toxic encephalopathy; J96.21 Acute and chronic respiratory failure with hypoxia; K65.0 Generalized (acute) peritonitis; N18.6 End stage renal disease; I50.23 Acute on chronic systolic (congestive) heart failure; T85.71XA Infection and inflammatory reaction due to peritoneal dialysis catheter, initial encounter; Z68.44 Body mass index [BMI] 60.0-69.9, adult; J44.1 Chronic obstructive pulmonary disease with (acute) exacerbation; E11.22 Type 2 diabetes mellitus with diabetic chronic kidney disease; E11.51 Type 2 diabetes mellitus with diabetic peripheral angiopathy without gangrene; E11.42 Type 2 diabetes mellitus with diabetic polyneuropathy; E66.01 Morbid (severe) obesity due to excess calories; Z99.2 Dependence on renal dialysis; E11.65 Type 2 diabetes mellitus with hyperglycemia; Z89.512 Acquired absence of left leg below knee; Z79.4 Long term (current) use of insulin; Z89.421 Acquired absence of other right toe(s); D63.1 Anemia in chronic kidney disease; F32.A Depression, unspecified; I25.10 Atherosclerotic heart disease of native coronary artery without angina pectoris; G47.33 Obstructive sleep apnea (adult) (pediatric); T38.0X5A Adverse effect of glucocorticoids and synthetic analogues, initial encounter; Z91.118 Patient's noncompliance with dietary regimen for other reason; Z79.85 Long-term (current) use of injectable non-insulin antidiabetic drugs; Z79.891 Long term (current) use of opiate analgesic; Z79.51 Long term (current) use of inhaled steroids; Z79.02 Long term (current) use of antithrombotics/antiplatelets; E87.5 Hyperkalemia; M89.8X9 Other specified disorders of bone, unspecified site; E78.5 Hyperlipidemia, unspecified; K21.9 Gastro-esophageal reflux disease without esophagitis; N40.0 Benign prostatic hyperplasia without lower urinary tract symptoms; Y84.1 Kidney dialysis as the cause of abnormal reaction of the patient, or of later complication, without mention of misadventure at the time of the procedure; I25.2 Old myocardial infarction; Z86.14 Personal history of Methicillin resistant Staphylococcus aureus infection; Z95.5 Presence of coronary angioplasty implant and graft; Z87.891 Personal history of nicotine dependence; Z79.899 Other long term (current) drug therapy; Z88.5 Allergy status to narcotic agent
CPT/HCPCS: 36415; 71045; 71046; 80048; 80053; 80069; 80202; 82565; 83036; 83605; 83735; 83880; 84484; 85025; 85610; 85730; 87040; 87070; 87205; 89050; 93005; 93308; 94640; 94660; 94760; 96374; 96375; 96376; 99291

== ENCOUNTER 2024-02-19 19:54 | Outpatient (CLI) | payer MEDICARE ==
--- NOTE | 2024-03-23 12:19 | SLS ---
SLEEP STUDY STUDY: ASV BiPAP titration, as the patient failed CPAP/BiPAP therapy due to complex sleep apnea. PERTINENT PHYSICAL FINDINGS: Height is 5 feet and 10 inches, weight is 270 pounds, with a body mass index of 38.7. SLEEP ARCHITECTURE: Total recording duration was 411.2 minutes. The total sleep time was 298.7 minutes. Sleep efficiency was 72.6%. Latency to sleep onset was 5 minutes. Latency to REM sleep was 124 minutes. The sleep architecture was characterized by 0.8% stage 1, 66.3% stage 2, 0% stage 3, and 32.8% REM sleep. SLEEP CONTINUITY SUMMARY: The patient had a total of 37 arousals with an arousal index of 7.4. The respiratory arousal index was 0.2. LIMB MOVEMENT SUMMARY: No significant periodic limb movements identified. CARDIAC SUMMARY: The average heart rate was 65 with a maximum heart rate of 88. RESPIRATORY SUMMARY: The patient underwent an ASV BiPAP titration. The titration itself was quite successful. The patient was started on an ASV BiPAP with the current setting EPAP of 5 cm of water with a pressure support minimum of 5 and a maximum of 15 cm of water. Oxygen was also added at 3 L/minute. There was complete elimination of the obstructive and central respiratory events without any significant nocturnal oxygen desaturations. ASSESSMENT: 1. Complex sleep apnea, failed continuous positive airway pressure/bilevel positive airway pressure therapy due to emergence/persistence of central apneic events. The patient underwent a successful adaptive servo-ventilation bilevel positive airway pressure titration. 2. Morbid obesity with a body mass index of 38.7. 3. History of chronic obstructive pulmonary disease. 4. End-stage renal disease, on peritoneal dialysis. 5. Hypertension. 6. Diabetes mellitus, type 2. 7. Peripheral vascular disease with previous amputation, left below-knee. 8. Chronic hypersomnia and sleepiness. Note that the patient's baseline AHI was 78.3. This was based on a screening polysomnography. The patient has a left ventricular ejection fraction of 45%. PLAN: We will initiate ASV BiPAP treatment for this patient. The recommended settings are EPAP minimum of 5 and a maximum of 11, pressure support minimum of 5 and a maximum of 15, and the patient will be given a medium-size Simplus full-face mask. Follow up in the office to assess treatment response and compliancy in 30 to 90 days. MMODL / IJN: [id number] /
== END 2024-02-20 06:00 | disposition home or self-care (01) ==
LOC: 3 N SLEEP 19:54
PROVIDERS: ATTEND Internal Medicine Critical Care Medicine
CPT/HCPCS: 95811

== ENCOUNTER 2024-03-09 10:43 | Day surgery (SDC) | payer MEDICARE ==
[~2024-03-09 10:43] MED LIST changes: -ACETAMINOPHEN TAB 500 MG TAB PO PRN; +ALPRAZolam 0.25 MG TAB PO PRN; -HEPARIN SODIUM,PORCINE/PF 5,000 UNIT/0.5 ML SYRINGE SQ PRN; -HYDROmorphone 0.5 MG/0.5 ML SYRINGE IVP PRN; -LACTATED RINGERS 1,000 ML IV SCH; +NITROGLYCERIN SL TABS 0.4 MG TAB SUBLINGUAL PRN
[2024-03-09] MEDS: IV FLUID CONTINUATION 1,000 ML IV ONE (11:08)
[2024-03-09] MEDS: SODIUM CHLORIDE 0.9% 1,000 ML in EMPTY BAG 1 BAG IV SCH ×2 (11:08→16:28)
[2024-03-09 11:10] LABS: Glucose,Whole Blood 151 mg/dL (70-110)
[2024-03-09] MEDS: ASPIRIN 325 MG TAB PO STA (11:17)
[2024-03-09 11:19] LABS: Basophils % (A) 1 %; Eosinophils # (A) 0.2 k/uL (0-0.7); Eosinophils % (A) 3 %; HCT 31.9 % (39.0-53.0); HGB 10.3 gm/dL (13.0-17.5); Hypochromasia Slight; Lymphocytes # (A) 1.8 k/uL (1.0-4.8); Lymphocytes % (A) 30 %; MCHC 32.4 g/dL (31.0-37.0); MCV 89.6 fL (80.0-100.0); Mean Platelet Volume 8.8; Monocytes # (A) 0.3 k/uL (0-1.0); Monocytes % (A) 6 %; Neutrophils # (A) 3.7 k/uL (1.3-7.7); Neutrophils % (A) 60 %; Platelet Count 266 k/uL (150-450); RBC 3.56 m/uL (4.30-5.90); RDW 14.6 % (11.5-15.5); WBC 6.1 k/uL (3.8-10.6)
[2024-03-09] MEDS: ALPRAZolam 0.5 MG TAB PO PRN (11:20)
[2024-03-09 11:31] LABS: African American GFR (CKD) 25 (>60 ml/min/1.73 sqM); Anion Gap 6 mmol/L; Blood Urea Nitrogen 48 mg/dL (9-20); Calcium 8.7 mg/dL (8.4-10.2); Carbon Dioxide 30 mmol/L (22-30); Chloride 107 mmol/L (98-107); Glucose 127 mg/dL (74-99); Non-African American GFR(CKD) 22 (>60 ml/min/1.73 sqM); Potassium 4.7 mmol/L (3.5-5.1); Sodium 143 mmol/L (137-145)
[2024-03-09] MEDS: oxyCODONE-APAP 10-325MG 1 EACH TAB PO PRN (11:37)
[2024-03-09] MEDS ORDERED: LIDOCAINE 1% INJ 10MG/ML (20 ML MDV) ONE (12:15)
[2024-03-09] MEDS ORDERED: VERAPAMIL 2.5 MG/ML 2 ML AMP ONE (12:15)
[2024-03-09] MEDS ORDERED: HEPARIN SODIUM 1,000 UN/ML (10ML VL) ONE (12:33)
[2024-03-09] MEDS: LIDOCAINE 1% INJ 10MG/ML (20 ML MDV) SQ ONE (12:48)
[2024-03-09] MEDS: HEPARIN SODIUM 1,000 UN/ML (10ML VL) IV ONE (13:07)
[2024-03-09] MEDS ORDERED: TICAGRELOR 90 MG TAB ONE (13:11)
[2024-03-09] MEDS: TICAGRELOR 90 MG TAB PO ONE (13:13)
[2024-03-09] MEDS: IOPAMIDOL-370 100ML BTL INJ ONE ×2 (13:24→13:36)
[2024-03-09] MEDS: HEPARIN SODIUM,PORCINE 10,000 UNIT in SODIUM CHLORIDE 0.9% 1,000 ML IRRIGATION PRN (13:36)
[2024-03-09] MEDS: HEPARIN SODIUM,PORCINE (1 ML) 2,500 UNIT in SODIUM CHLORIDE 0.9% 250 ML IRRIGATION PRN (13:37)
[2024-03-09] MEDS ORDERED: OXYMETAZOLINE 0.05% NASL SPRAY 1 SPRAY BOTTLE EA NOSTRIL PRN (13:39)
[2024-03-09] MEDS ORDERED: LACTULOSE 200 GM/300 ML (FROM 1/2 GAL JUG) PO PRN (13:39)
[2024-03-09] MEDS ORDERED: MAG HYDROX/AL HYDROX/SIMETH 30 ML CUP PO PRN (13:40)
[2024-03-09] MEDS ORDERED: RX INFO: IV CONTRAST WAS GIVEN 1 EACH MISC MISCELLANE PRN (13:40)
[2024-03-09] MEDS ORDERED: NITROGLYCERIN SL TABS 0.4 MG TAB SUBLINGUAL PRN (13:40)
[2024-03-09] MEDS ORDERED: ATROPINE SULFATE 0.1 MG/ML 10ML SYRINGE IV PRN (13:40)
[2024-03-09] MEDS ORDERED: ZOLPIDEM 5 MG TAB PO PRN (13:40)
[2024-03-09 14:28] LABS: Glucose,Whole Blood 73 mg/dL (70-110)
[2024-03-09] MEDS ORDERED: DEXTROSE 50% SYRINGE 50 ML IVP ONE (14:28)
[2024-03-09 14:43] LABS: Glucose,Whole Blood 167 mg/dL (70-110)
[2024-03-09 15:15] LABS: Glucose,Whole Blood 144 mg/dL (70-110)
[2024-03-09] MEDS: oxyCODONE-APAP 10-325MG 1 EACH TAB PO SCH (16:28)
[2024-03-09 16:30] LABS: Glucose,Whole Blood 94 mg/dL (70-110)
[2024-03-09 16:53] LABS: Glucose,Whole Blood 95 mg/dL (70-110)
[2024-03-09] MEDS: hydrALAZINE HCL 50 MG TAB PO SCH (16:59)
[2024-03-09] MEDS: TORSEMIDE 20 MG TAB PO SCH (17:00)
[2024-03-09] MEDS: IPRATROPIUM 0.5 MG/2.5 ML NEBU INHALATION SCH (17:20)
--- NOTE | 2024-03-09 18:58 | P.PCN ---
Date of Procedure: 03/09/24 Operative Findings: CARDIAC CATHETERIZATION AND PERCUTANEOUS CORONARY INTERVENTION PERFORMING PHYSICIAN: Hunter Arenas MD, [facility] PROCEDURE PERFORMED: 1. Selective right and left coronary angiogram 2. Left heart catheterization 3. Successful stenting of mid LAD using 4.0 x 38 mm Xience BERTO with an excel lent angiographic results 4. Adjunctive use of Dobler wire and IVUS catheter 5. Ultrasound-guided access of the right common femoral artery and right common femoral artery angiogram INDICATION: Symptomatic 58-year-old gentleman with abnormal myocardial perfusion imaging stress test and known coronary artery disease multiple risk factors COMPLICATION: None APPROACH: Right common femoral artery LEVEL OF SEDATION: Moderate with the sedation time off 30 minutes PROCEDURE DESCRIPTION: After obtaining informed consent the patient was brought to the cardiac [employer]. Attempting accessing the right radial artery was unsuccessful. After that I was able to access the right common femoral artery using micropuncture technique under ultrasound guidance a micropuncture wire passed easily then I placed a 6 Tunisian 11 cm sheath at the right common femoral artery which was subsequently exchanged into 23 cm sheath because of the significant and thick subcutaneous tissue and the sheath was barely entering the artery. Selective right and left coronary angiogram performed using JR4 and JL 4 catheter. Left heart catheterization was performed using 6 Tunisian pigtail catheter with after that I decided to intervene on the LAD and started by getting a Doppler wire measurements. Anticoagulation was initiated using heparin with continuous ACT monitoring. Subsequently after zeroing the Doppler wire and equalizing between the Doppler wire and guiding catheter which was JL 4 guiding catheter the left main was engaged and the LAD was wired. I did an IFR of the LAD and that came in to be at 0.74. Subsequently I decided to intervene on the LAD. I did intravascular ultrasound which showed a diameter between 3.5 to 4 mm. Predilatation was performed using 3 mm balloon before I deployed a 4.0 x 38 mm stent where the stent was positioned under fluoroscopic guidance and deployed under 10 doug for 20 seconds. Postdilatation was performed using 4 mm noncompliant balloon after intravascular ultrasound was performed. Subsequently postdilatation was performed using 4.5 mm balloon. Final angiogram showed excellent angiographic results with VAL-3 flow and the procedure was completed with no complication SELECTIVE CORONARY ANGIOGRAM: The right coronary artery: Large caliber vessel and a dominant vessel. The proximal RCA has mild disease only. The mid to distal RCA has intermediate to severe lesion appears to be in the range of 60%. The RCA appears to be stented in the midportion and the stent is patent Left main: Is angiographically normal. Bifurcates into an LCx and LAD The left circumflex: Large-caliber vessel nondominant vessel appears to be subtotally occluded in the proximal portion The left anterior descending artery: Large-caliber vessel. The proximal LAD appears to be angiographically normal. The mid LAD has a tubular lesion appears to be in the range of 60% documented to be flow-limiting by Doppler wire. The LAD gives rise into the first and second diagonal branches both about 2 mm in diameter with severe disease involving the second diagonal branch. HEMODYNAMICS: The LVEDP was 18 mmHg with no significant gradient across aortic valve CONCLUSION: Patent stent in the mid RCA. Intermediate disease involving the mid to distal RCA Intermediate to severe disease involving the mid LAD documented to be flow- limiting by Doppler wire. I did perform PCI of the LAD POSTPROCEDURE MANAGEMENT: 1. Dual antiplatelet therapy using aspirin and Brilinta for at least 6 month 2. Aggressive cholesterol control 3. Follow-up with the patient
[2024-03-09 19:05] LABS: Glucose,Whole Blood 76 mg/dL (70-110)
[2024-03-09 20:44] LABS: Glucose,Whole Blood 81 mg/dL (70-110)
[2024-03-09] MEDS: SYMBICORT 80-4.5 MCG INHALER INHALATION SCH (20:55)
[2024-03-09 21:42] VITALS: RESP 16
[2024-03-09] MEDS: PANTOPRAZOLE 40 MG TABLET PO SCH (22:04)
[2024-03-09] MEDS: FLUoxetine HCL 20 MG CAP PO SCH (22:04)
[2024-03-09] MEDS: GABAPENTIN 400 MG CAP PO SCH (22:05)
[2024-03-09] MEDS: LORATADINE 10 MG TAB PO SCH (22:05)
[2024-03-09] MEDS: ATORVASTATIN 40 MG TAB PO SCH (22:05)
[2024-03-09] MEDS: TICAGRELOR 90 MG TAB PO SCH (22:05)
[2024-03-09] MEDS: amLODIPine 5 MG TAB PO SCH (22:05)
[2024-03-09] MEDS: ASPIRIN 81 MG PO SCH (22:05)
[2024-03-09] MEDS: DIALYSIS (PERIT 2.5%) 2,500 ML 62.5 G/2,500 ML BAG INTRAPERIT SCH (23:37)
[2024-03-10 00:14] LABS: Glucose,Whole Blood 127 mg/dL (70-110)
[2024-03-10] MEDS: DIALYSIS (PERIT 1.5%) 2,500 ML 37.5 G/2,500 ML BAG INTRAPERIT SCH (05:41)
[2024-03-10 05:54] LABS: Glucose,Whole Blood 135 mg/dL (70-110)
[2024-03-10] MEDS ORDERED: DIALYSIS (PERIT 1.5%) 2,500 ML 37.5 G/2,500 ML BAG INTRAPERIT SCH (06:00)
[2024-03-10] MEDS: METOPROLOL SUCCINATE (ER) 100 MG TAB.ER.24H PO SCH (07:35)
[2024-03-10] MEDS: TAMSULOSIN 0.4 MG CAP.ER.24H PO SCH (07:35)
[2024-03-10] MEDS: allopurinoL 100 MG TAB PO SCH (07:36)
[2024-03-10] MEDS: ISOSORBIDE MONONITRATE ER 60 MG TAB.ER.24H PO SCH (07:36)
[2024-03-10] MEDS: MULTIVITAMINS, THERA 1 EACH TAB PO SCH (07:36)
[2024-03-10 07:50] VITALS: BP 166/90; TEMP 98.1
[2024-03-10] MEDS ORDERED: NON FORMULARY DRUG (Fluticasone/Umeclidin/Vilanter [Trelegy Ellipta 100-62.5-25] 1 EACH Bl INHALATION SCH (08:00)
[2024-03-10 08:03] LABS: African American GFR (CKD) 25 (>60 ml/min/1.73 sqM); Non-African American GFR(CKD) 22 (>60 ml/min/1.73 sqM)
--- NOTE | 2024-03-10 08:26 | P.DS ---
Providers Attending physician: Hunter Arenas Consults: 03/09/24 13:41 Consult Physician Routine Consulting Provider: [facility] Consult Reason/Comments: Post Interventional Patient Do you want consulting provider notified?: Already Contacted 03/09/24 15:56 Consult Physician Urgent Consulting Provider: Marci Tamez Consult Reason/Comments: peritoneal dilaysis Do you want consulting provider notified?: Yes Placement Type Exists?: Yes Primary care physician: [facility] Course: The patient is a pleasant 58-year-old gentleman who underwent yesterday heart catheterization and PCI of the LAD He was seen and evaluated this morning. He is asymptomatic and hemodynamically stable. The right groin is soft and nontender with no bruises The patient is going to be discharged home on dual antiplatelet therapy along with a statin. I am going to obtain a BMP just to rule out any severe electrolytes imbalance since the patient is on dialysis. Beside that I will follow-up with the patient next week in the office Plan - Discharge Summary Discharge Rx Participant: Yes New Discharge Prescriptions: New Ticagrelor [Brilinta] 90 mg PO BID #180 tab Continue Tamsulosin [Flomax] 0.4 mg PO DAILY Albuterol Inhaler [Ventolin Hfa Inhaler] 1 - 2 puff INHALATION RT-Q6H PRN PRN Reason: Shortness Of Breath Isosorbide Mononitrate ER [Imdur] 60 mg PO DAILY Pantoprazole [Protonix] 80 mg PO HS amLODIPine [Norvasc] 5 mg PO BID #60 tab Oxymetazoline HCl [Vicks Sinex] 1 spray EA NOSTRIL DAILY PRN PRN Reason: Allergy Symptoms Loratadine 10 mg PO HS Dulaglutide [Trulicity] 0.75 mg SQ TU Atorvastatin [Lipitor] 40 mg PO HS #30 tab Unk Multi Vitamin 1 tab PO DAILY Fluticasone/Umeclidin/Vilanter [Trelegy Ellipta 100-62.5-25] 1 puff INHALATION RT-DAILY oxyCODONE-APAP 10-325MG [Percocet 10-325 mg] 1 tab PO Q6H Gabapentin [Neurontin] 400 mg PO HS FLUoxetine HCL [PROzac] 40 mg PO BID Insulin NPH/Reg Insulin 70/30 [humuLIN 70/30 VIAL] See Protocol SQ AC-TID allopurinoL [Zyloprim] 100 mg PO DAILY Torsemide [Demadex] 20 mg PO BID@0900,1600 Lactulose 20 gm PO DIRECTED PRN PRN Reason: Constipation Aspirin EC [Ecotrin Low Dose] 81 mg PO HS Nitroglycerin Sl Tabs [Nitrostat] 0.4 mg SL Q5M PRN PRN Reason: Chest Pain Metoprolol Succinate (ER) [Toprol XL] 100 mg PO DAILY #30 tab hydrALAZINE HCL [Apresoline] 75 mg PO TID No Action Clopidogrel [Plavix] 75 mg PO DAILY #90 tab Discharge Medication List Tamsulosin [Flomax] 0.4 mg PO DAILY 04/14/18 [History] Albuterol Inhaler [Ventolin Hfa Inhaler] 1 - 2 puff INHALATION RT-Q6H PRN 03/09/19 [History] Clopidogrel [Plavix] 75 mg PO DAILY #90 tab 06/23/19 [Rx] Fluticasone/Umeclidin/Vilanter [Trelegy Ellipta 100-62.5-25] 1 puff INHALATION RT-DAILY 02/24/22 [History] Isosorbide Mononitrate ER [Imdur] 60 mg PO DAILY 03/11/22 [History] Pantoprazole [Protonix] 80 mg PO HS 03/11/22 [History] oxyCODONE-APAP 10-325MG [Percocet 10-325 mg] 1 tab PO Q6H 03/11/22 [History] FLUoxetine HCL [PROzac] 40 mg PO BID 09/11/23 [History] Gabapentin [Neurontin] 400 mg PO HS 09/11/23 [History] Insulin NPH/Reg Insulin 70/30 [humuLIN 70/30 VIAL] See Protocol SQ AC-TID 09/11/23 [History] amLODIPine [Norvasc] 5 mg PO BID #60 tab 09/12/23 [Rx] Aspirin EC [Ecotrin Low Dose] 81 mg PO HS 12/16/23 [History] Dulaglutide [Trulicity] 0.75 mg SQ TU 12/16/23 [History] Lactulose 20 gm PO DIRECTED PRN 12/16/23 [History] Loratadine 10 mg PO HS 12/16/23 [History] Nitroglycerin Sl Tabs [Nitrostat] 0.4 mg SL Q5M PRN 12/16/23 [History] Oxymetazoline HCl [Vicks Sinex] 1 spray EA NOSTRIL DAILY PRN 12/16/23 [History] Torsemide [Demadex] 20 mg PO BID@0900,1600 12/16/23 [History] allopurinoL [Zyloprim] 100 mg PO DAILY 12/16/23 [History] Atorvastatin [Lipitor] 40 mg PO HS #30 tab 12/25/23 [Rx] Metoprolol Succinate (ER) [Toprol XL] 100 mg PO DAILY #30 tab 12/25/23 [Rx] Unk Multi Vitamin 1 tab PO DAILY 03/06/24 [History] hydrALAZINE HCL [Apresoline] 75 mg PO TID 03/09/24 [History] Ticagrelor [Brilinta] 90 mg PO BID #180 tab 03/10/24 [Rx] Follow up Appointment(s)/Referral(s): Hunter Arenas MD [STAFF PHYSICIAN] - 1 Week (Office will call you with appt date & time.) Patient Instructions/Handouts: Left Heart Catheterization (GEN) Activity/Diet/Wound Care/Special Instructions: CARDIAC CATH Support your puncture site by applying firm, steady pressure whenever you cough, laugh, sneeze or bear down to have a bowel movement (2-day restriction). Watch for any excessive bruising, active bleeding, a firm knot forming under your skin, extreme tenderness and signs of infection (redness, swelling, fever). Shower daily, do not soak puncture in a tub bath, jacuzzi, pool, salazar etc. for 1 week. This is to prevent risk of infection. Drink plenty of fluids the day of and day after your procedure to flush contrast dye out of your kidneys. Take all medications as directed. Never stop any new medication without your physicians OK. No driving for 2 days after procedure. 10- pound weight lifting restriction for 1 week. Low sodium/low fat diet. Activity limited until follow up appointment with your patient coordinator front desk. In case of any problems, please call [facility], Alejandra Holden @ [phone]
--- NOTE | 2024-03-10 09:23 | US ---
EXAMINATION TYPE: US groin RT DATE OF EXAM: 03/10/2024 COMPARISON: NONE CLINICAL INDICATION: Male, 58 years old with history of post cath tenderness; TECHNIQUE: Grayscale imaging of the right groin. FINDINGS: No suspicious masses. Hypoechoic structure extending away from the common femoral artery w ithout internal color Doppler flow. IMPRESSION: Small hematoma versus thrombosed pseudoaneurysm present near the common femoral artery.
[2024-03-10 09:34] LABS: Anion Gap 7 mmol/L; Blood Urea Nitrogen 46 mg/dL (9-20); Calcium 8.6 mg/dL (8.4-10.2); Carbon Dioxide 27 mmol/L (22-30); Chloride 106 mmol/L (98-107); Glucose 132 mg/dL (74-99); Potassium 4.8 mmol/L (3.5-5.1); Sodium 140 mmol/L (137-145)
[2024-03-10 11:05] VITALS: BMI 38.8
[2024-03-10 12:00] VITALS: PULSE 58
[2024-03-10] MEDS: DIALYSIS (PERIT 2.5%) 2,500 ML 62.5 G/2,500 ML BAG INTRAPERIT SCH (12:06)
--- NOTE | 2024-03-10 12:23 | P.NPCON ---
History of Present Illness - Reason for Consult end stage renal disease - History of Present Illness Patient is a 58-year-old male with end-stage renal disease on peritoneal dialysis. He is admitted to the hospital for an elective cardiac catheterization which was performed yesterday. Mid RCA stent was patent. Patient will be discharged today. No significant complaints. Currently resting comfortably. Awaiting femoral ultrasound to rule out pseudoaneurysm. Past Medical History Past Medical History: Coronary Artery Disease (CAD), Heart Failure, COPD, Diabetes Mellitus, Eye Disorder, GERD/Reflux, Hyperlipidemia, Hypertension, Myocardial Infarction ([place]), Osteoarthritis (OA), Renal Disease, Respiratory Disorder, Sleep Apnea/CPAP/BIPAP, Vascular Disorder Additional Past Medical History / Comment(s): Poor circulation in hands and leg s/feet. 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 does not wear cpap Last Myocardial Infarction Date:: 2014 History of Any Multi-Drug Resistant Organisms: MRSA Date of last positivie culture/infection: approx 2015 MDRO Source:: right foot Past Surgical History: Heart Catheterization With Stent, Hernia Repair, Tonsillectomy Additional Past Surgical History / Comment(s): Right foot 3rd and 4th AND 5TH toes and area of foot amputated, cyst on scrotum removed. partial amp lt foot but had non healing wound which resulted in lt bka. matilde cataracts removed-has lens implants. x3 rt inguinal hernia sx and an umb hernia repair. BELOW KNEE AMPUTATION , COLONOSCOPY Stent LADx1 03/09/2024-(R) Groin manual pull Past Anesthesia/Blood Transfusion Reactions: No Reported Reaction Additional Past Anesthesia/Blood Transfusion Reaction / Comment(s): States he was in the ICU after his surgery on his toes, but does not know why. Date of Last Stent Placement:: 05/2015 APPROX Past Psychological History: Anxiety, Depression, Panic Disorder Additional Psychological History / Comment(s): Single, has been in extended care for several months and is now just gone home. Since arriving home he denied having increasing difficulties with his limbs, his glucose and his tobacco use. Smoking Status: Current some day smoker Past Alcohol Use History: None Reported Additional Past Alcohol Use History / Comment(s): few ciagarettets a dayt Past Drug Use History: Marijuana Additional Drug Use History / Comment(s): Occas.past marijuana use. , THC OIL INSTRUCTED TO HOLD 24 HOURS PRIOR - Past Family History Father History Unknown: Yes Mother History Unknown: Yes Family Medical History: Cancer, Coronary Artery Disease (CAD) Additional Family Medical History / Comment(s): benign Brain tumor, Barton syndrome Sister(s) Family Medical History: No Reported History Medications and Allergies Home Medications Medication Instructions Recorded Confirmed Type Tamsulosin [Flomax] 0.4 mg PO DAILY 04/14/18 03/09/24 History Albuterol Inhaler [Ventolin Hfa 1 - 2 puff INHALATION RT-Q6H PRN 03/09/19 03/09/24 History Inhaler] Clopidogrel [Plavix] 75 mg PO DAILY #90 tab 06/23/19 03/09/24 Rx Fluticasone/Umeclidin/Vilanter 1 puff INHALATION RT-DAILY 02/24/22 03/09/24 History [Igor Teresata 100-62.5-25] Isosorbide Mononitrate ER [Imdur] 60 mg PO DAILY 03/11/22 03/09/24 History Pantoprazole [Protonix] 80 mg PO HS 03/11/22 03/09/24 History oxyCODONE-APAP 10-325MG [Percocet 1 tab PO Q6H 03/11/22 03/09/24 History 10-325 mg] FLUoxetine HCL [PROzac] 40 mg PO BID 09/11/23 03/09/24 History Gabapentin [Neurontin] 400 mg PO HS 09/11/23 03/09/24 History Insulin NPH/Reg Insulin 70/30 See Protocol SQ AC-TID 09/11/23 03/09/24 History [humuLIN 70/30 VIAL] amLODIPine [Norvasc] 5 mg PO BID #60 tab 09/12/23 03/09/24 Rx Aspirin EC [Ecotrin Low Dose] 81 mg PO HS 12/16/23 03/09/24 History Dulaglutide [Trulicity] 0.75 mg SQ TU 12/16/23 03/09/24 History Lactulose 20 gm PO DIRECTED PRN 12/16/23 03/06/24 History Loratadine 10 mg PO HS 12/16/23 03/09/24 History Nitroglycerin Sl Tabs [Nitrostat] 0.4 mg SL Q5M PRN 12/16/23 03/06/24 History Oxymetazoline HCl [Vicks Sinex] 1 spray EA NOSTRIL DAILY PRN 12/16/23 03/06/24 History Torsemide [Demadex] 20 mg PO BID@0900,1600 12/16/23 03/09/24 History allopurinoL [Zyloprim] 100 mg PO DAILY 12/16/23 03/09/24 History Atorvastatin [Lipitor] 40 mg PO HS #30 tab 12/25/23 03/09/24 Rx Metoprolol Succinate (ER) [Toprol 100 mg PO DAILY #30 tab 12/25/23 03/09/24 Rx XL] Unk Multi Vitamin 1 tab PO DAILY 03/06/24 03/06/24 History hydrALAZINE HCL [Apresoline] 75 mg PO TID 03/09/24 03/09/24 History Ticagrelor [Brilinta] 90 mg PO BID #180 tab 03/10/24 Rx Allergies Allergy/AdvReac Type Severity Reaction Status Date / Time codeine AdvReac headache, Verified 03/06/24 15:42 DIZZY, N/V hydrocodone [From Vicodin] AdvReac Nausea & Verified 03/06/24 15:42 Vomiting tramadol AdvReac Nausea & Verified 03/06/24 15:42 Vomiting Physical Exam Vitals: Vital Signs Temp Pulse Pulse Resp BP BP BP 03/10/24 11:59 58 L 03/10/24 11:51 60 03/10/24 09:36 58 L 03/10/24 09:19 58 L 03/10/24 07:49 98.1 F 58 L 166/90 03/10/24 06:00 57 L 16 144/67 03/10/24 05:40 57 L 16 144/67 03/10/24 04:00 55 L 16 142/65 03/10/24 00:10 98.3 F 54 L 16 139/67 03/09/24 23:35 54 L 16 139/67 03/09/24 21:10 50 L 03/09/24 20:57 51 L 03/09/24 20:45 97.7 F 50 L 16 154/85 03/09/24 16:29 97.5 F L 64 14 146/81 03/09/24 15:15 52 L 16 134/70 03/09/24 15:00 52 L 16 135/71 03/09/24 14:45 52 L 16 137/72 03/09/24 14:36 50 L 16 134/68 03/09/24 14:30 52 L 16 130/67 03/09/24 14:15 52 L 16 128/67 03/09/24 14:00 56 L 16 139/71 03/09/24 13:45 56 L 16 143/76 Pulse Ox 03/10/24 11:59 03/10/24 11:51 03/10/24 09:36 03/10/24 09:19 03/10/24 07:49 96 03/10/24 06:00 98 03/10/24 05:40 98 03/10/24 04:00 98 03/10/24 00:10 98 03/09/24 23:35 98 03/09/24 21:10 03/09/24 20:57 03/09/24 20:45 98 03/09/24 16:29 98 03/09/24 15:15 98 03/09/24 15:00 97 03/09/24 14:45 98 03/09/24 14:36 97 03/09/24 14:30 97 03/09/24 14:15 97 03/09/24 14:00 97 03/09/24 13:45 97 Intake and Output 03/09/24 03/10/24 03/10/24 22:59 06:59 14:59 Intake Total 10 Output Total 750 Balance -750 10 Intake: IV 10 Invasive Line 1 10 Output: Urine 750 Other: Voiding Method Urinal Urinal Urinal # Voids 1 Weight 122.7 kg 122.7 kg Patient is sleeping, arousable No acute distress Examination of the heart S1 and S2 Examination of the lungs bilateral breath sounds are heard Abdomen is soft obese nontender Examination lower extremity shows edema, 1+, left BKA Results - Lab Results Most recent lab results Calcium 8.6 mg/dL (8.4-10.2) 03/10/24 06:34 03/09/24 11:04 03/10/24 06:34 Assessment and Plan Assessment: 1. End-stage renal disease on peritoneal dialysis 2. Coronary artery disease status postcardiac cath which showed patent stent to RCA 3. CKD mineral bone disorder 4. Volume overload 5. Hypertension with CKD stage V Plan: Continue current PD exchanges. 1.5% solution alternating with 2.5% solution. Patient can be discharged from nephrology standpoint if cleared by cardiology.
[2024-03-13] MEDS ORDERED: NON FORMULARY DRUG (Dulaglutide [Trulicity] 0.75 MG/0.5 ML Each) SQ SCH (13:39)
== END 2024-03-10 12:01 | disposition home or self-care (01) ==
LOC: CATHCVL 10:43 → 3SCARD 13:35 → CATHCVL 03-10 12:01
PROVIDERS: ATTEND Internal Medicine Interventional Cardiology
DX: I25.5 Ischemic cardiomyopathy (principal); I13.2 Hypertensive heart and chronic kidney disease with heart failure and with stage 5 chronic kidney disease, or end stage renal disease; E11.22 Type 2 diabetes mellitus with diabetic chronic kidney disease; E78.5 Hyperlipidemia, unspecified; N18.6 End stage renal disease; M19.90 Unspecified osteoarthritis, unspecified site; K21.9 Gastro-esophageal reflux disease without esophagitis; J44.9 Chronic obstructive pulmonary disease, unspecified; I50.9 Heart failure, unspecified; I25.2 Old myocardial infarction; I25.10 Atherosclerotic heart disease of native coronary artery without angina pectoris; G47.30 Sleep apnea, unspecified; F41.9 Anxiety disorder, unspecified; F32.A Depression, unspecified; F17.200 Nicotine dependence, unspecified, uncomplicated; F12.90 Cannabis use, unspecified, uncomplicated; Z79.4 Long term (current) use of insulin; Z79.02 Long term (current) use of antithrombotics/antiplatelets; Z79.899 Other long term (current) drug therapy; Z88.5 Allergy status to narcotic agent; Z99.2 Dependence on renal dialysis; Z95.5 Presence of coronary angioplasty implant and graft
CPT/HCPCS: 80048; 85025; 92978; 93458; 93799; 94640

== ENCOUNTER 2024-03-30 19:36 | Inpatient (IN) | payer MEDICARE ==
[2024-03-30] MEDS ORDERED: VANCOMYCIN IV PER PHARMACY 1 EACH MISC MISCELLANE PRN (19:55)
--- NOTE | 2024-03-30 19:56 | ED ---
Fever HPI - General Stated Complaint: Foot Infection Time Seen by Provider: 03/30/24 19:42 Source: old records reviewed Mode of arrival: ambulatory Limitations: no limitations - History of Present Illness Initial Comments: This is a 58-year-old male presenting for fever. Patient has had a fever throughout the course of the day with history of left BKA as well as right toe amputations with history of cellulitis and significant infection of the right foot. Patient starts with fever today and worsening feeling fatigued throughout the day. MD Complaint: fever, malaise, weakness -: hour(s) Temperature Source: subjective Associated Symptoms: chills, rigors, myalgias Treatments Prior to Arrival: none - Related Data Home Medications Medication Instructions Recorded Confirmed Tamsulosin [Flomax] 0.4 mg PO DAILY 04/14/18 03/31/24 Albuterol Inhaler [Ventolin Hfa 1 - 2 puff INHALATION RT-Q6H PRN 03/09/19 03/31/24 Inhaler] Isosorbide Mononitrate ER [Imdur] 60 mg PO DAILY 03/11/22 03/31/24 Pantoprazole [Protonix] 80 mg PO HS 03/11/22 03/31/24 oxyCODONE-APAP 10-325MG [Percocet 1 tab PO Q6H PRN 03/11/22 03/31/24 10-325 mg] FLUoxetine HCL [PROzac] 40 mg PO BID 09/11/23 03/31/24 Gabapentin [Neurontin] 400 mg PO HS 09/11/23 03/31/24 Insulin NPH/Reg Insulin 70/30 1 - 100 unit SQ AC-TID 09/11/23 03/31/24 [humuLIN 70/30 VIAL] Aspirin EC [Ecotrin Low Dose] 81 mg PO HS 12/16/23 03/31/24 Loratadine 10 mg PO HS 12/16/23 03/31/24 Nitroglycerin Sl Tabs [Nitrostat] 0.4 mg SL Q5M PRN 12/16/23 03/31/24 Torsemide [Demadex] 20 mg PO BID 12/16/23 03/31/24 allopurinoL [Zyloprim] 100 mg PO DAILY 12/16/23 03/31/24 hydrALAZINE HCL [Apresoline] 25 mg PO TID PRN 03/31/24 03/31/24 Previous Rx's Medication Instructions Recorded amLODIPine [Norvasc] 5 mg PO BID #60 tab 09/12/23 Atorvastatin [Lipitor] 40 mg PO HS #30 tab 12/25/23 Metoprolol Succinate (ER) [Toprol 100 mg PO DAILY #30 tab 12/25/23 XL] Ticagrelor [Brilinta] 90 mg PO BID #180 tab 03/10/24 Allergies Allergy/AdvReac Type Severity Reaction Status Date / Time codeine AdvReac headache, Verified 03/31/24 08:56 DIZZY, N/V hydrocodone [From Vicodin] AdvReac Nausea & Verified 03/31/24 08:56 Vomiting tramadol AdvReac Nausea & Verified 03/31/24 08:56 Vomiting Review of Systems ROS Statement: Those systems with pertinent positive or pertinent negative responses have been documented in the HPI. ROS Other: All systems not noted in ROS Statement are negative. Past Medical History Past Medical History: Coronary Artery Disease (CAD), Heart Failure, COPD, Diabetes Mellitus, Eye Disorder, GERD/Reflux, Hyperlipidemia, Hypertension, Myocardial Infarction ([place]), Osteoarthritis (OA), Renal Disease, Respiratory Disorder, Sleep Apnea/CPAP/BIPAP, Vascular Disorder Additional Past Medical History / Comment(s): Poor circulation in hands and legs/feet. 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 does not wear cpap Last Myocardial Infarction Date:: 2014 History of Any Multi-Drug Resistant Organisms: MRSA Date of last positivie culture/infection: approx 2015 MDRO Source:: right foot Past Surgical History: Heart Catheterization With Stent, Hernia Repair, Tonsillectomy Additional Past Surgical History / Comment(s): Right foot 3rd and 4th AND 5TH toes and area of foot amputated, cyst on scrotum removed. partial amp lt foot but had non healing wound which resulted in lt bka. matilde cataracts removed-has lens implants. x3 rt inguinal hernia sx and an umb hernia repair. BELOW KNEE AMPUTATION , COLONOSCOPY Stent LADx1 03/09/2024-(R) Groin manual pull Past Anesthesia/Blood Transfusion Reactions: No Reported Reaction Additional Past Anesthesia/Blood Transfusion Reaction / Comment(s): States he was in the ICU after his surgery on his toes, but does not know why. Date of Last Stent Placement:: 05/2015 APPROX Smoking Status: Current some day smoker Additional Past Alcohol Use History / Comment(s): few ciagarettets a dayt - Past Family History Father History Unknown: Yes Mother History Unknown: Yes Family Medical History: Cancer, Coronary Artery Disease (CAD) Additional Family Medical History / Comment(s): benign Brain tumor, Berhane syndrome Sister(s) Family Medical History: No Reported History General Exam General appearance: alert, anxious, in distress Head exam: Present: atraumatic, normocephalic, normal inspection Eye exam: Present: normal appearance, PERRL, EOMI. Absent: scleral icterus, conjunctival injection, periorbital swelling ENT exam: Present: normal exam, mucous membranes moist Neck exam: Present: normal inspection. Absent: tenderness, meningismus, lymphadenopathy Respiratory exam: Present: respiratory distress, wheezes, accessory muscle use, decreased breath sounds, prolonged expiratory. Absent: rales, rhonchi, stridor Cardiovascular Exam: Present: normal rhythm, tachycardia, normal heart sounds. Absent: systolic murmur, diastolic murmur, rubs, gallop, clicks GI/Abdominal exam: Present: soft, normal bowel sounds. Absent: distended, tenderness, guarding, rebound, rigid Extremities exam: Present: tenderness, normal capillary refill, pedal edema, joint swelling. Absent: full ROM, calf tenderness Back exam: Present: normal inspection Neurological exam: Present: alert, oriented X3, CN II-XII intact Psychiatric exam: Present: normal affect, normal mood Skin exam: Present: warm, dry, intact, normal color. Absent: rash Course Vital Signs 03/30/24 03/30/24 03/30/24 19:40 22:32 23:21 Temperature 102.4 F H 99.0 F 99.3 F Pulse Rate 102 H 74 Pulse Rate [ Right] Respiratory 20 18 Rate Blood Pressure 163/84 135/73 Blood Pressure [Right Arm] O2 Sat by Pulse 91 L 93 L Oximetry 03/31/24 03/31/24 03/31/24 01:00 02:00 06:11 Temperature Pulse Rate 84 67 Pulse Rate [ Right] Respiratory 20 20 18 Rate Blood Pressure 136/74 150/68 Blood Pressure [Right Arm] O2 Sat by Pulse 95 97 Oximetry 03/31/24 03/31/24 03/31/24 07:15 08:14 15:54 Temperature 97.9 F 96.9 F L 97.4 F L Pulse Rate Pulse Rate [ 65 Right] Respiratory 18 18 Rate Blood Pressure Blood Pressure 131/57 129/69 [Right Arm] O2 Sat by Pulse 95 90 L Oximetry 03/31/24 18:33 Temperature 97.7 F Pulse Rate 64 Pulse Rate [ Right] Respiratory 18 Rate Blood Pressure 144/66 Blood Pressure [Right Arm] O2 Sat by Pulse 93 L Oximetry - Reevaluation(s) Reevaluation #1: 03/30/24 20:54 Medical records reviewed Reevaluation #2: 03/30/24 20:54 Patient symptoms improving Reevaluation #3: 03/30/24 21:42 Patient informed of results and questions answered 03/30/24 21:42 IV fluids secondary to sepsis given slowly secondary to CHF and renal disease Reevaluation #4: 03/30/24 20:54 Was pt. sent in by a medical professional or institution (, PA, CLIENT CONSULTANT, urgent care, hospital, or senior living...) When possible be specific @ -no Did you speak to anyone other than the patient for history (EMS, parent, family, police, friend...)? What history was obtained from this source @ -no Did you review nursing and triage notes (agree or disagree)? Why? @ -agree Are old charts reviewed (outside hosp., previous admission, EMS record, old EKG, old radiological studies, urgent care reports/EKG's, senior living records)? Report findings @ -yes Differential Diagnosis (chest pain, altered mental status, abdominal pain women, abdominal pain men, vaginal bleeding, weakness, fever, dyspnea, syncope, headache, dizziness, GI bleed, back pain, seizure, CVA, palpatations, mental health, musculoskeletal)? @ -prior EKG interpreted by me (3pts min.). @ -yes X-rays interpreted by me (1pt min.). @ -yes negative for acute disease CT interpreted by me (1pt min.). @ -no U/S interpreted by me (1pt. min.). @ -no What testing was considered but not performed or refused? (CT, X-rays, U/S, labs)? Why? @ -none What meds were considered but not given or refused? Why? @ -none Did you discuss the management of the patient with other professionals (professionals i.e. , PA, CLIENT CONSULTANT, lab, RT, psych nurse, medical social consultant, wire frame lampshade maker, teacher, animal services officer, bilingual case manager)? Give summary @ -no Was smoking cessation discussed for >3mins.? @ -no Was critical care preformed (if so, how long)? @ -no Were there social determinants of health that impacted care today? How? (Homelessness, low income, unemployed, alcoholism, drug addiction, transportation, low edu. Level, literacy, decrease access to med. care, penitentiary, rehab)? @ -none Was there de-escalation of care discussed even if they declined (Discuss DNR or withdrawal of care, Hospice)? DNR status @ -no What co-morbidities impacted this encounter? (DM, HTN, Smoking, COPD, CAD, Cancer, CVA, ARF, Chemo, Hep., AIDS, mental health diagnosis, sleep apnea, morbid obesity)? @ -none Was patient admitted / discharged? Hospital course, mention meds given and route, prescriptions, significant lab abnormalities, going to OR and other pertinent info. @ - 58 male to the ER for evaluation patient suffers from severe medical conditions coming in with fever today with known osteomyelitis of the right foot history of osteomyelitis of the right foot and recurrent cellulitis and sepsis. Patient admitted for IV antibiotics Admitted Undiagnosed new problem with uncertain prognosis? @ -no Drug Therapy requiring intensive monitoring for toxicity (Heparin, Nitro, Insulin, Cardizem)? @ -no Were any procedures done? @ -no Diagnosis/symptom? @ -Foot infection with cellulitis and right foot osteomyelitis Acute, or Chronic, or Acute on Chronic? @ -Acute Uncomplicated (without systemic symptoms) or Complicated (systemic symptoms)? @ -Complicated Side effects of treatment? @ -no Exacerbation, Progression, or Severe Exacerbation? @ -exacerbation Poses a threat to life or bodily function? How? (Chest pain, [place], [place], pneumonia, PE, COPD, DKA, ARF, appy, cholecystitis, CVA, Diverticulitis, Homicidal, Suicidal, threat to staff... and all critical care pts) @ -yes with severe infection foot infection with cellulitis Reevaluation #5: Differential Fever: Pneumonia, viral URI, endocarditis, myocarditis, pericarditis, otitis, sinusitis, peritonsillar Abscess, retropharyngeal Abscess, epiglottitis, peritonitis, appendicitis, Carine cystitis, diverticulitis, hepatitis, colitis, UTI, PID, TOA, pyelonephritis, prostatitis, epididymitis, meningitis, encephalitis, pulmonary embolism, CVA, thyroid storm, pancreatitis, adrenal crisis, cavernous sinus thrombosis, this is not meant to be an all-inclusive list. - Consultations Consultation #1: Spoke with yandel who agrees to see this patient Medical Decision Making - Medical Decision Making 58 male to the ER for evaluation patient suffers from severe medical conditions coming in with fever today with known osteomyelitis of the right foot history of osteomyelitis of the right foot and recurrent cellulitis and sepsis. Patient admitted for IV antibiotics - Lab Data Result diagrams: 03/31/24 04:05 03/31/24 04:05 Lab Results 03/30/24 03/30/24 03/30/24 Range/Units 21:00 21:00 21:00 WBC 13.7 H (3.8-10.6) k/uL RBC 3.54 L (4.30-5.90) m/uL Hgb 10.1 L (13.0-17.5) gm/dL Hct 30.8 L (39.0-53.0) % MCV 87.0 (80.0-100.0) fL MCH 28.5 (25.0-35.0) pg MCHC 32.7 (31.0-37.0) g/dL RDW 13.8 (11.5-15.5) % Plt Count 302 (150-450) k/uL MPV 9.1 Neutrophils % 87 % Lymphocytes % 7 % Monocytes % 5 % Eosinophils % 0 % Basophils % 0 % Neutrophils # 12.0 H (1.3-7.7) k/uL Lymphocytes # 0.9 L (1.0-4.8) k/uL Monocytes # 0.7 (0-1.0) k/uL Eosinophils # 0.0 (0-0.7) k/uL Basophils # 0.0 (0-0.2) k/uL PT 10.7 (10.0-12.5) sec INR 1.0 (<1.2) APTT 30.7 H (22.0-30.0) sec Sodium 137 (137-145) mmol/L Potassium 4.2 (3.5-5.1) mmol/L Chloride 102 (98-107) mmol/L Carbon Dioxide 28 (22-30) mmol/L Anion Gap 7 mmol/L BUN 59 H (9-20) mg/dL Creatinine 2.87 H (0.66-1.25) mg/dL Est GFR (CKD-EPI)AfAm 27 (>60 ml/min/1.73 sqM) Est GFR (CKD-EPI)NonAf 23 (>60 ml/min/1.73 sqM) Glucose 212 H (74-99) mg/dL Plasma Lactic Acid Anant (0.7-2.0) mmol/L Calcium 8.5 (8.4-10.2) mg/dL Phosphorus 2.6 (2.5-4.5) mg/dL Magnesium 1.3 L (1.6-2.3) mg/dL Total Bilirubin 0.7 (0.2-1.3) mg/dL AST 36 (17-59) U/L ALT 19 (4-49) U/L Alkaline Phosphatase 188 H (38-126) U/L Troponin I (0.000-0.034) ng/mL NT-Pro-B Natriuret Pep 94516 pg/mL Total Protein 6.5 (6.3-8.2) g/dL Albumin 3.1 L (3.5-5.0) g/dL 03/30/24 03/30/24 Range/Units 21:00 21:00 WBC (3.8-10.6) k/uL RBC (4.30-5.90) m/uL Hgb (13.0-17.5) gm/dL Hct (39.0-53.0) % MCV (80.0-100.0) fL MCH (25.0-35.0) pg MCHC (31.0-37.0) g/dL RDW (11.5-15.5) % Plt Count (150-450) k/uL MPV Neutrophils % % Lymphocytes % % Monocytes % % Eosinophils % % Basophils % % Neutrophils # (1.3-7.7) k/uL Lymphocytes # (1.0-4.8) k/uL Monocytes # (0-1.0) k/uL Eosinophils # (0-0.7) k/uL Basophils # (0-0.2) k/uL PT (10.0-12.5) sec INR (<1.2) APTT (22.0-30.0) sec Sodium (137-145) mmol/L Potassium (3.5-5.1) mmol/L Chloride (98-107) mmol/L Carbon Dioxide (22-30) mmol/L Anion Gap mmol/L BUN (9-20) mg/dL Creatinine (0.66-1.25) mg/dL Est GFR (CKD-EPI)AfAm (>60 ml/min/1.73 sqM) Est GFR (CKD-EPI)NonAf (>60 ml/min/1.73 sqM) Glucose (74-99) mg/dL Plasma Lactic Acid Anant 1.7 (0.7-2.0) mmol/L Calcium (8.4-10.2) mg/dL Phosphorus (2.5-4.5) mg/dL Magnesium (1.6-2.3) mg/dL Total Bilirubin (0.2-1.3) mg/dL AST (17-59) U/L ALT (4-49) U/L Alkaline Phosphatase (38-126) U/L Troponin I 0.033 (0.000-0.034) ng/mL NT-Pro-B Natriuret Pep pg/mL Total Protein (6.3-8.2) g/dL Albumin (3.5-5.0) g/dL - EKG Data -: EKG Interpreted by [facility] - Radiology Data Radiology results: report reviewed (X-ray x-ray right foot), image reviewed Critical Care Time Critical Care Time: Yes Total Critical Care Time: 31 Disposition Clinical Impression: Obesity, Diabetic ulcer of right foot associated with diabetes mellitus due to underlying condition, with necrosis of bone, ESRD (end stage renal disease), Acute exacerbation of chronic obstructive pulmonary disease, CHF (congestive heart failure), CKD (chronic kidney disease) Disposition: ADMITTED IP TO THIS [facility] Condition: Serious Is patient prescribed a controlled substance at d/c from ED?: No Time of Disposition: 21:40
[2024-03-30 21:14] LABS: Basophils % (A) 0 %; Eosinophils % (A) 0 %; HCT 30.8 % (39.0-53.0); HGB 10.1 gm/dL (13.0-17.5); Lymphocytes # (A) 0.9 k/uL (1.0-4.8); Lymphocytes % (A) 7 %; MCH 28.5 pg (25.0-35.0); MCHC 32.7 g/dL (31.0-37.0); Mean Platelet Volume 9.1; Monocytes # (A) 0.7 k/uL (0-1.0); Monocytes % (A) 5 %; Neutrophils % (A) 87 %; Platelet Count 302 k/uL (150-450); RBC 3.54 m/uL (4.30-5.90); RDW 13.8 % (11.5-15.5); WBC 13.7 k/uL (3.8-10.6)
[2024-03-30] MEDS: ACETAMINOPHEN IV (For NPO) 1,000 MG in EMPTY BAG 1 BAG IVPB STA (21:23)
[2024-03-30] MEDS: MORPHINE SULFATE 4 MG/ML SYRINGE IV STA (21:25)
[2024-03-30] MEDS: SODIUM CHLORIDE 0.9% 1,000 ML IV STA ×2 (21:25→21:53)
[2024-03-30 21:34] LABS: ALT 19 U/L (4-49); AST 36 U/L (17-59); African American GFR (CKD) 27 (>60 ml/min/1.73 sqM); Albumin 3.1 g/dL (3.5-5.0); Alkaline Phosphatase 188 U/L (38-126); Anion Gap 7 mmol/L; Blood Urea Nitrogen 59 mg/dL (9-20); Calcium 8.5 mg/dL (8.4-10.2); Carbon Dioxide 28 mmol/L (22-30); Chloride 102 mmol/L (98-107); Glucose 212 mg/dL (74-99); Magnesium 1.3 mg/dL (1.6-2.3); Non-African American GFR(CKD) 23 (>60 ml/min/1.73 sqM); Phosphorus 2.6 mg/dL (2.5-4.5); Potassium 4.2 mmol/L (3.5-5.1); Sodium 137 mmol/L (137-145); Total Bilirubin 0.7 mg/dL (0.2-1.3); Total Protein 6.5 g/dL (6.3-8.2)
[2024-03-30 21:35] LABS: Partial Thromboplastin Time 30.7 sec (22.0-30.0); Prothrombin Time 10.7 sec (10.0-12.5)
--- NOTE | 2024-03-30 21:39 | XR ---
EXAMINATION TYPE: XR chest 2V DATE OF EXAM: 03/30/2024 9:35 PM CLINICAL INDICATION: Male, 58 years old with history of Weakness; [facility] COMPARISON: Chest radiographs from 12/19/2023 TECHNIQUE: XR chest 2V Frontal view of the chest. FINDINGS: Lungs/Pleura: There is no evidence of pleural effusion, focal consolidation, or pneumothorax. Pulmonary vascularity: Unremarkable. Heart/mediastinum: Cardiomediastinal silhouette is unremarkable. Musculoskeletal: No acute osseous pathology. IMPRESSION: Low lung volumes with a generalized hazy appearance which could represent atelectasis versus pulmonar y edema correlate with serum BNP. [facility], , 03/30/2024 9:37 PM
[2024-03-30 21:42] LABS: NT-Pro-B-Type Natriuretic Pept 13000 pg/mL
[2024-03-30] MEDS ORDERED: NALOXONE 0.4 MG/ML 1 ML VIAL IV PRN (21:43)
[2024-03-30] MEDS ORDERED: MORPHINE SULFATE 4 MG/ML SYRINGE IV PRN (21:43)
--- NOTE | 2024-03-30 21:47 | XR ---
EXAMINATION TYPE: XR foot limited RT DATE OF EXAM: 03/30/2024 9:36 PM CLINICAL INDICATION: Male, 58 years old with history of pain; [facility] COMPARISON: 03/24/2018. TECHNIQUE: XR foot limited RT examined in the AP, oblique, and lateral projections. FINDINGS: Multiple prior surgeries throughout the foot involving all digits with amputations at various points of each digit. A saphenous gas around the third and fourth digits. No obvious erosion identified. Deg eneration changes throughout the joints of the foot with demonstrate space tearing osteophyte formati on. Severe atherosclerosis of the arterial vasculature. IMPRESSION: 1. Postsurgical changes, no obvious erosion to suggest osteomyelitis consider three-phase bone scan and/or MRI. 2. Soft tissue subjacent gas pattern fourth digits possibly due to wound first gas-forming organism. [facility], , 03/30/2024 9:45 PM
[2024-03-30] MEDS: SODIUM CHLORIDE 0.9% 500 ML 500 ML IV STA (21:54)
[2024-03-30] MEDS: HYDROmorphone 1 MG/ML 1 ML SYRINGE IVP STA (21:55)
[2024-03-30] MEDS: KETOROLAC 15 MG/ML 1 ML VIAL IVP STA (21:58)
[2024-03-30] MEDS: VANCOMYCIN 2,000 MG in SODIUM CHLORIDE 0.9% 500 ML 500 ML IVPB STA (22:31)
[2024-03-31] MEDS: SODIUM CHLORIDE 0.9% 1,000 ML IV SCH (00:20)
[2024-03-31] MEDS: HYDROmorphone 1 MG/ML 1 ML SYRINGE IVP PRN (01:42)
[2024-03-31] MEDS: oxyCODONE-APAP 10-325MG 1 EACH TAB PO SCH (03:35)
[2024-03-31] MEDS: ASPIRIN 81 MG PO SCH (03:36)
[2024-03-31] MEDS: ATORVASTATIN 40 MG TAB PO SCH (03:36)
[2024-03-31] MEDS: TICAGRELOR 90 MG TAB PO SCH (03:37)
[2024-03-31] MEDS: FLUoxetine HCL 20 MG CAP PO SCH (03:37)
[2024-03-31] MEDS: GABAPENTIN 400 MG CAP PO SCH (03:37)
[2024-03-31] MEDS: PANTOPRAZOLE 40 MG TABLET PO SCH (03:37)
[2024-03-31 04:48] LABS: ALT 20 U/L (4-49); AST 29 U/L (17-59); African American GFR (CKD) 29 (>60 ml/min/1.73 sqM); Albumin 2.6 g/dL (3.5-5.0); Alkaline Phosphatase 176 U/L (38-126); Anion Gap 2 mmol/L; Blood Urea Nitrogen 53 mg/dL (9-20); Calcium 7.9 mg/dL (8.4-10.2); Carbon Dioxide 26 mmol/L (22-30); Chloride 106 mmol/L (98-107); Glucose 180 mg/dL (74-99); Magnesium 1.3 mg/dL (1.6-2.3); Non-African American GFR(CKD) 25 (>60 ml/min/1.73 sqM); Phosphorus 3.7 mg/dL (2.5-4.5); Potassium 3.9 mmol/L (3.5-5.1); Sodium 134 mmol/L (137-145); Total Bilirubin 0.4 mg/dL (0.2-1.3); Total Protein 5.6 g/dL (6.3-8.2)
[2024-03-31 04:54] LABS: Basophils % (A) 0 %; Eosinophils # (A) 0.1 k/uL (0-0.7); Eosinophils % (A) 1 %; HCT 26.7 % (39.0-53.0); HGB 8.9 gm/dL (13.0-17.5); Lymphocytes # (A) 1.3 k/uL (1.0-4.8); Lymphocytes % (A) 11 %; MCH 28.9 pg (25.0-35.0); MCHC 33.2 g/dL (31.0-37.0); Mean Platelet Volume 9.6; Monocytes # (A) 0.6 k/uL (0-1.0); Monocytes % (A) 5 %; Neutrophils % (A) 82 %; Platelet Count 264 k/uL (150-450); RBC 3.07 m/uL (4.30-5.90); RDW 14.1 % (11.5-15.5); WBC 12.1 k/uL (3.8-10.6)
[2024-03-31] MEDS: ONDANSETRON 4 MG/2 ML VIAL IVP PRN (06:01)
[2024-03-31] MEDS ORDERED: TICAGRELOR 90 MG TAB PO SCH (09:00)
[2024-03-31] MEDS ORDERED: FLUoxetine HCL 20 MG CAP PO SCH (09:00)
[2024-03-31] MEDS ORDERED: NITROGLYCERIN SL TABS 0.4 MG TAB SUBLINGUAL PRN (10:52)
[2024-03-31] MEDS ORDERED: ENOXAPARIN 40 MG/0.4 ML SYRINGE SQ SCH (11:00)
--- NOTE | 2024-03-31 11:09 | P.NPCON ---
History of Present Illness - Reason for Consult end stage renal disease - History of Present Illness Reason for consultation: End-stage renal disease History of present illness: Patient is a 58-year-old male seen in renal consultation for end-stage renal disease. Patient was seen and examined in the emergency room. He is maintained on peritoneal dialysis. Patient came to the hospital due to weakness and fever. Patient has history of left BKA as well as right toe amputations. Patient states he follows at wound care for right foot wound and was recently debrided on Tuesday. Patient says yesterday he felt cold and had a fever of 102 F and therefore came to the hospital. He denies any issues with peritoneal dialysis exchanges. Patient states dialysate has been clear. No abdominal pain. Denies constipation. He does make urine. No chest pain or shortness of breath. Patient has longstanding history of diabetes. He also has history of coronary disease with cardiac stents. No nausea or vomiting. Vital signs are stable. General: No acute distress. HEENT: Head exam is unremarkable. LUNGS: No audible rhonchi or wheezes. HEART: Rate and Rhythm are regular. ABDOMEN: Obese, nontender. EXTREMITITES: Left BKA. Right foot wrapped. No drainage. Past Medical History Past Medical History: Coronary Artery Disease (CAD), Heart Failure, COPD, D iabetes Mellitus, Eye Disorder, GERD/Reflux, Hyperlipidemia, Hypertension, Myocardial Infarction ([place]), Osteoarthritis (OA), Renal Disease, Respiratory Disorder, Sleep Apnea/CPAP/BIPAP, Vascular Disorder Additional Past Medical History / Comment(s): Poor circulation in hands and legs/feet. 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 does not wear cpap Last Myocardial Infarction Date:: 2014 History of Any Multi-Drug Resistant Organisms: MRSA Date of last positivie culture/infection: approx 2015 MDRO Source:: right foot Past Surgical History: Heart Catheterization With Stent, Hernia Repair, Tonsi llectomy Additional Past Surgical History / Comment(s): Right foot 3rd and 4th AND 5TH toes and area of foot amputated, cyst on scrotum removed. partial amp lt foot but had non healing wound which resulted in lt bka. matilde cataracts removed-has lens implants. x3 rt inguinal hernia sx and an umb hernia repair. BELOW KNEE AMPUTATION , COLONOSCOPY Stent LADx1 03/09/2024-(R) Groin manual pull Past Anesthesia/Blood Transfusion Reactions: No Reported Reaction Additional Past Anesthesia/Blood Transfusion Reaction / Comment(s): States he was in the ICU after his surgery on his toes, but does not know why. Date of Last Stent Placement:: 05/2015 APPROX Smoking Status: Current some day smoker Additional Past Alcohol Use History / Comment(s): few ciagarettets a dayt - Past Family History Father History Unknown: Yes Mother History Unknown: Yes Family Medical History: Cancer, Coronary Artery Disease (CAD) Additional Family Medical History / Comment(s): benign Brain tumor, Berhane syndrome Sister(s) Family Medical History: No Reported History Medications and Allergies Home Medications Medication Instructions Recorded Confirmed Type Tamsulosin [Flomax] 0.4 mg PO DAILY 04/14/18 03/31/24 History Albuterol Inhaler [Ventolin Hfa 1 - 2 puff INHALATION RT-Q6H PRN 03/09/19 03/31/24 History Inhaler] Isosorbide Mononitrate ER [Imdur] 60 mg PO DAILY 03/11/22 03/31/24 History Pantoprazole [Protonix] 80 mg PO HS 03/11/22 03/31/24 History oxyCODONE-APAP 10-325MG [Percocet 1 tab PO Q6H PRN 03/11/22 03/31/24 History 10-325 mg] FLUoxetine HCL [PROzac] 40 mg PO BID 09/11/23 03/31/24 History Gabapentin [Neurontin] 400 mg PO HS 09/11/23 03/31/24 History Insulin NPH/Reg Insulin 70/30 1 - 100 unit SQ AC-TID 09/11/23 03/31/24 History [humuLIN 70/30 VIAL] amLODIPine [Norvasc] 5 mg PO BID #60 tab 09/12/23 03/31/24 Rx Aspirin EC [Ecotrin Low Dose] 81 mg PO HS 12/16/23 03/31/24 History Loratadine 10 mg PO HS 12/16/23 03/31/24 History Nitroglycerin Sl Tabs [Nitrostat] 0.4 mg SL Q5M PRN 12/16/23 03/31/24 History Torsemide [Demadex] 20 mg PO BID 12/16/23 03/31/24 History allopurinoL [Zyloprim] 100 mg PO DAILY 12/16/23 03/31/24 History Atorvastatin [Lipitor] 40 mg PO HS #30 tab 12/25/23 03/31/24 Rx Metoprolol Succinate (ER) [Toprol 100 mg PO DAILY #30 tab 12/25/23 03/31/24 Rx XL] Ticagrelor [Brilinta] 90 mg PO BID #180 tab 03/10/24 03/31/24 Rx hydrALAZINE HCL [Apresoline] 25 mg PO TID PRN 03/31/24 03/31/24 History Allergies Allergy/AdvReac Type Severity Reaction Status Date / Time codeine AdvReac headache, Verified 03/31/24 08:56 DIZZY, N/V hydrocodone [From Vicodin] AdvReac Nausea & Verified 03/31/24 08:56 Vomiting tramadol AdvReac Nausea & Verified 03/31/24 08:56 Vomiting Physical Exam Vitals: Vital Signs Temp Pulse Resp BP Pulse Ox 03/31/24 07:15 97.9 F 03/31/24 06:11 67 18 150/68 97 03/31/24 02:00 20 03/31/24 01:00 84 20 136/74 95 03/30/24 23:21 99.3 F 74 18 135/73 93 L 03/30/24 22:32 99.0 F 03/30/24 19:40 102.4 F H 102 H 20 163/84 91 L Intake and Output 03/30/24 03/31/24 03/31/24 22:59 06:59 14:59 Other: Weight 120.202 kg Results - Lab Results Most recent lab results Calcium 7.9 mg/dL (8.4-10.2) L 03/31/24 04:05 Phosphorus 3.7 mg/dL (2.5-4.5) 03/31/24 04:05 Magnesium 1.3 mg/dL (1.6-2.3) L 03/31/24 04:05 03/31/24 04:05 03/31/24 04:05 Assessment and Plan Plan: Assessment: 1. End-stage renal disease maintained on peritoneal dialysis. 2. Right foot wound on antibiotics. ID and vascular surgery consulted. 3. Anemia of chronic kidney disease. 4. Diabetes mellitus. 5. Hypertension with chronic kidney disease. 6. Chronic kidney disease mineral bone disease. Plan: Resume PD exchanges with 2 L every 6 hours with 1.5% dextrose solution. Maintain torsemide. Hep-Lock IV fluids. Add Aranesp. Check dialysis cell count and culture. Check phosphorus level. Thank you for the consultation. I will continue to follow the patient with you during his hospital stay.
[2024-03-31] MEDS: METOPROLOL SUCCINATE (ER) 100 MG TAB.ER.24H PO SCH (12:50)
[2024-03-31] MEDS: ENOXAPARIN 30 MG/0.3 ML SYRINGE SQ SCH (12:50)
[2024-03-31] MEDS: TORSEMIDE 20 MG TAB PO SCH (12:51)
[2024-03-31] MEDS: ISOSORBIDE MONONITRATE ER 60 MG TAB.ER.24H PO SCH (12:51)
[2024-03-31] MEDS: TAMSULOSIN 0.4 MG CAP.ER.24H PO SCH (12:51)
[2024-03-31] MEDS: amLODIPine 5 MG TAB PO SCH (12:51)
[2024-03-31] MEDS: allopurinoL 100 MG TAB PO SCH (12:51)
[2024-03-31] MEDS: DARBEPOETIN ALFA 40 MCG/0.4 ML SYRINGE SQ SCH (13:24)
[2024-03-31] MEDS: DIALYSIS (PERIT 1.5%) 2,000 ML 30 G/2,000 ML BAG INTRAPERIT SCH (13:24)
[2024-03-31] MEDS: MAGNESIUM SULFATE-D5W PMX 1 GM in DEXTROSE/WATER 1 100ML.BAG IVPB SCH (13:46)
[2024-03-31] MEDS ORDERED: DEXTROSE 50% SYRINGE 50 ML IVP PRN ×2 (14:21)
--- NOTE | 2024-03-31 15:09 | P.CNPUL ---
History of Present Illness Consult date: 03/31/24 Chief complaint: fever History of present illness: This is a 58-year-old male patient was referred to the emergency because of a episode of fever that he encountered at home. He is also known to have a chronic nonhealing wound in his right lower extremity as the patient is diabetic and he has chronic poor circulation to his lower extremities bilaterally. The patient has been seen at the wound center. I noted the wound and there is no active drainage. The white cell count at the time of admission was 13 and the patient was afebrile and hemodynamically stable. He is known to have chronic renal disease maintained on hemodialysis. Patient is 58 with a creatinine of 2.8. Rest of electrolytes are normal. Troponin is at 0.03. No respiratory difficulties. Chest x-ray shows no acute abnormalities. X-ray of the foot showed no evidence of any osteomyelitis. No evidence of any gas there is questionable area of gas around the third and the fourth digit that needs to be further investigated by infectious disease. Nevertheless, there is no evidence of any cellulitis and the patient is not toxic and he does not show any signs of septicemia or shock. He is on room air oxygen with a pulse ox of 95%. No chest pain. No altered mentation. His EKG showing a normal sinus rhythm without any significant sinus tachycardia. Chest x-ray was also showing smaller lung volumes and atelectatic changes in lung bases otherwise no other acute abnormalities are noted. The patient is currently on no antibiotic coverage. Review of Systems Constitutional: Reports fatigue, Reports weakness Eyes: denies as per HPI, denies blurred vision, denies bulging eye, denies decreased vision, denies diplopia, denies discharge, denies dry eye, denies irri tation, denies itching, denies pain, denies photophobia, denies loss of peripheral vision, denies loss of vision, denies tunnel vision/blind spots Ears: deny: decreased hearing, ear discharge, earache, tinnitus Ears, nose, mouth and throat: Reports as per HPI Breasts: absent: as per HPI, gynecomastia Cardiovascular: Reports claudication, Reports decreased exercise tolerance, Reports dyspnea on exertion, Reports irregular heart beat Respiratory: Reports cough, Reports dyspnea, Reports home oxygen, Reports sleep apnea, Reports wheezing Gastrointestinal: Reports as per HPI Genitourinary: Reports as per HPI Musculoskeletal: Reports as per HPI Musculoskeletal: right: ankle swelling, absent: ankle pain, ankle stiffness Integumentary: Reports as per HPI, chronic wound in the right lower extremity, multiple amputations noted. Neurological: Reports as per HPI Psychiatric: Reports as per HPI Endocrine: Reports as per HPI Hematologic/Lymphatic: Reports as per HPI Past Medical History Past Medical History: Coronary Artery Disease (CAD), Heart Failure, COPD, Diabetes Mellitus, Eye Disorder, GERD/Reflux, Hyperlipidemia, Hypertension, Myocardial Infarction ([place]), Osteoarthritis (OA), Renal Disease, Respiratory Disorder, Sleep Apnea/CPAP/BIPAP, Vascular Disorder Additional Past Medical History / Comment(s): Poor circulation in hands and legs/feet. 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 does not wear cpap Last Myocardial Infarction Date:: 2014 History of Any Multi-Drug Resistant Organisms: MRSA Date of last positivie culture/infection: approx 2015 MDRO Source:: right foot Past Surgical History: Heart Catheterization With Stent, Hernia Repair, Tonsillectomy Additional Past Surgical History / Comment(s): Right foot 3rd and 4th AND 5TH toes and area of foot amputated, cyst on scrotum removed. partial amp lt foot but had non healing wound which resulted in lt bka. matilde cataracts removed-has lens implants. x3 rt inguinal hernia sx and an umb hernia repair. BELOW KNEE A MPUTATION , COLONOSCOPY Stent LADx1 03/09/2024-(R) Groin manual pull Past Anesthesia/Blood Transfusion Reactions: No Reported Reaction Additional Past Anesthesia/Blood Transfusion Reaction / Comment(s): States he was in the ICU after his surgery on his toes, but does not know why. Date of Last Stent Placement:: 05/2015 APPROX Smoking Status: Current some day smoker Additional Past Alcohol Use History / Comment(s): few ciagarettets a dayt - Past Family History Father History Unknown: Yes Mother History Unknown: Yes Family Medical History: Cancer, Coronary Artery Disease (CAD) Additional Family Medical History / Comment(s): benign Brain tumor, Berhane syndrome Sister(s) Family Medical History: No Reported History Medications and Allergies Home Medications Medication Instructions Recorded Confirmed Type Tamsulosin [Flomax] 0.4 mg PO DAILY 04/14/18 03/31/24 History Albuterol Inhaler [Ventolin Hfa 1 - 2 puff INHALATION RT-Q6H PRN 03/09/19 History Inhaler] Isosorbide Mononitrate ER [Imdur] 60 mg PO DAILY 03/11/22 03/31/24 History Pantoprazole [Protonix] 80 mg PO HS 03/11/22 03/31/24 History oxyCODONE-APAP 10-325MG [Percocet 1 tab PO Q6H PRN 03/11/22 03/31/24 History 10-325 mg] FLUoxetine HCL [PROzac] 40 mg PO BID 09/11/23 03/31/24 History Gabapentin [Neurontin] 400 mg PO HS 09/11/23 03/31/24 History Insulin NPH/Reg Insulin 70/30 1 - 100 unit SQ AC-TID 09/11/23 03/31/24 History [humuLIN 70/30 VIAL] amLODIPine [Norvasc] 5 mg PO BID #60 tab 09/12/23 03/31/24 Rx Aspirin EC [Ecotrin Low Dose] 81 mg PO HS 12/16/23 03/31/24 History Loratadine 10 mg PO HS 12/16/23 03/31/24 History Nitroglycerin Sl Tabs [Nitrostat] 0.4 mg SL Q5M PRN 12/16/23 03/31/24 History Torsemide [Demadex] 20 mg PO BID 12/16/23 03/31/24 History allopurinoL [Zyloprim] 100 mg PO DAILY 12/16/23 03/31/24 History Atorvastatin [Lipitor] 40 mg PO HS #30 tab 12/25/23 03/31/24 Rx Metoprolol Succinate (ER) [Toprol 100 mg PO DAILY #30 tab 12/25/23 03/31/24 Rx XL] Ticagrelor [Brilinta] 90 mg PO BID #180 tab 03/10/24 03/31/24 Rx hydrALAZINE HCL [Apresoline] 25 mg PO TID PRN 03/31/24 03/31/24 History Allergies Allergy/AdvReac Type Severity Reaction Status Date / Time codeine AdvReac headache, Verified 03/31/24 08:56 DIZZY, N/V hydrocodone [From Vicodin] AdvReac Nausea & Verified 03/31/24 08:56 Vomiting tramadol AdvReac Nausea & Verified 03/31/24 08:56 Vomiting Physical Exam Vitals: Vital Signs Temp Pulse Resp BP BP Pulse Ox 03/31/24 08:14 96.9 F L 18 131/57 95 03/31/24 07:15 97.9 F 03/31/24 06:11 67 18 150/68 97 03/31/24 02:00 20 03/31/24 01:00 84 20 136/74 95 03/30/24 23:21 99.3 F 74 18 135/73 93 L 03/30/24 22:32 99.0 F 03/30/24 19:40 102.4 F H 102 H 20 163/84 91 L Intake and Output 03/31/24 03/31/24 03/31/24 06:59 14:59 22:59 Other: Weight 120.202 kg General appearance the patient is morbidly obese, in mild acute respiratory distress currently on room air oxygen without any signs of respiratory distress Head exam was generally normal. There was no scleral icterus or corneal arcus. Mucous membranes were moist. Neck was supple and without jugular venous distension, thyromegaly, or carotid bruits. Carotids were easily palpable bilaterally. There was no adenopathy. Lung sounds are diminished bilaterally and the patient has crackles in the lung bases Cardiac exam revealed the PMI to be normally situated and sized. The rhythm was regular and no extrasystoles were noted during several minutes of auscultation. The first and second heart sounds were normal and physiologic splitting of the second heart sound was noted. There were no murmurs, rubs, clicks, or gallops. Overall heart sounds are distant. Abdomen is obese, soft and nontender. No organomegaly. No direct tenderness or rebound/guarding. The patient has a peritoneal dialysis catheter in place. Extremities reveal an amputation of the left lower extremity, trace edema of the right lower extremity, diminished pulses, no cyanosis or clubbing. A chronic wound, measuring approximately 1/2 cm in size in the sole of the right foot, no active drainage. No palpable gas. Examination of the skin revealed no evidence of significant rashes, suspicious appearing nevi or other concerning lesions. Neurologically, the patient is awake and alert and the patient does not have any focal neurological deficit. Cranial nerves are essentially intact. Results - Laboratory Findings CBC and BMP: 03/31/24 04:05 03/31/24 04:05 PT/INR, D-dimer PT 10.7 sec (10.0-12.5) 03/30/24 21:00 INR 1.0 (<1.2) 03/30/24 21:00 Abnormal lab findings: Abnormal Labs 03/30/24 03/30/24 03/30/24 21:00 21:00 21:00 WBC 13.7 H RBC 3.54 L Hgb 10.1 L Hct 30.8 L Neutrophils # 12.0 H Lymphocytes # 0.9 L APTT 30.7 H Sodium BUN 59 H Creatinine 2.87 H Glucose 212 H Calcium Magnesium 1.3 L Alkaline Phosphatase 188 H Total Protein Albumin 3.1 L 03/31/24 03/31/24 04:05 04:05 WBC 12.1 H RBC 3.07 L Hgb 8.9 L Hct 26.7 L Neutrophils # 10.0 H Lymphocytes # APTT Sodium 134 L BUN 53 H Creatinine 2.67 H Glucose 180 H Calcium 7.9 L Magnesium 1.3 L Alkaline Phosphatase 176 H Total Protein 5.6 L Albumin 2.6 L Assessment and Plan Plan: Fever under investigation. Patient is hemodynamically stable. No signs of any systemic toxicity. No leukocytosis. No altered mentation. Currently afebrile. Chronic wound in the right foot, nondraining, without any clear indication for acute or ongoing infection. Awaiting vascular surgery evaluation. End-stage renal disease currently undergoing peritoneal dialysis Morbid obesity Obstructive sleep apnea, severe with a AHI of 78, the patient has complex treatment emergent central apneas and the patient accordingly was given an ASV BiPAP device Advanced COPD Peripheral vascular disease with previous BKA on the left End-stage renal disease on hemodialysis Coronary artery disease Diabetes mellitus, with a component of steroid-induced hyperglycemia the patient was given IV Solu-Medrol in the emergency department. Hypertension, with an elevated blood pressure Hyperlipidemia Acid reflux History of smoking Plan Resume home meds Vascular surgery and ID evaluation No clear indication of ongoing septicemia/infection Will continue to follow
--- NOTE | 2024-03-31 15:53 | P.HPIM ---
History of Present Illness H&P Date: 03/31/24 Chief Complaint: Fever Pleasant 58-year-old patient follows with Dr. Harris. Chronic stable medical conditions include CAD, COPD, diabetes, GERD, hyperlipidemia, hypertension, end-stage kidney disease with hemodialysis, obstructive sleep apnea, PAD, left foot BKA with the prosthesis, home oxygen 2.5 L at night. CAD with stent right foot third fourth and fifth toe amputated. Patient is on peritoneal dialysis. Patient follows at the wound care, Dr. Denton but was recently debrided on Tuesday. For about 3 days patient not been feeling well. Decreased appetite. Yesterday spiked a fever of 102.6. Decided to come in. Has a wound on the right foot. Blood cultures drawn in the ER. Did receive vancomycin. at the bedside. Feeling better this morning. Did eat some breakfast. Review of systems: GEN.: Tired decreased appetite EYES: None HEENT: None NECK: None RESPIRATORY: As above e CARDIOVASCULAR: [As above GASTROINTESTINAL: None GENITOURINARY: None MUSCULOSKELETAL: Some joint pains LYMPHATICS: None HEMATOLOGICAL: None PSYCHIATRY: None NEUROLOGICAL: Peripheral neuropathy e Social history: Lives with his . Smokes about half a pack a day for many years-recently down to few cigarettes a day. No alcohol. Did use marijuana in the past. Physical examination: VITAL SIGNS: 102.4, 102, 20, 160 x 84, 91% room air upon presentation GENERAL: BMI 38, reclining bed awake not in distress EYES: Pupils equal. Conjunctiva julieta l. HEENT: External appearance of nose and ears normal, oral cavity grossly normal. NECK: JVD not raised; masses not palpable. HEART: First and second heart sounds are normal; no edema. LUNGS:[ Respiratory rate-normal decreased breath sounds. ABDOMEN: Soft, nontender, liver spleen not palpable, no masses palpable. PSYCH: Alert and oriented x3; mood and affect normal MUSCULOSKELETAL: Left BKA. With prosthesis. Right foot second third and fourth toe amputated. Wound on the right foot laterally NEUROLOGICAL: Cranial nerves grossly intact; no facial asymmetry, power and sensation grossly intact. LYMPHATICS: No lymph nodes palpable in the axilla and neck INVESTIGATIONS, reviewed in the clinical context: March 31, 2024: White count 12.1 hemoglobin 8.9 platelets 264 sodium 134 potassium 3.9 BUN 53 creatinine 2.67 EKG tracing personally reviewed by me-normal sinus rhythm. Poor R wave progression. Chest x-ray film personally reviewed by me-some cardiomegaly. Some venous prominence Assessment and plan: -Sepsis secondary to right foot infection with chronic wound that is being followed at the wound care center. Is followed by Dr. Denton from vascular. Blood cultures done. IV vancomycin. -Chronic right foot wound which is being followed at wound care center., From underlying PAD Consult Dr. Denton from vascular -Chronic congestive heart failure exacerbation from systolic dysfunction EF 45%: Demadex -End-stage kidney disease on peritoneal dialysis Nephrology consulted. -Anemia of chronic kidney disease Aranesp -Essential hypertension Toprol-XL 100 mg a day. Amlodipine 5 mg twice daily. Hydralazine-as needed -Diabetes mellitus type 2, chronically insulin Follow Accu-Cheks with sliding scale insulin. -BPH Flomax -Hyperlipidemia Lipitor 40mg nightly -Obesity BMI 38 Weight loss measures -Depression anxiety Prozac 40 mg twice daily -Diabetic peripheral neuropathy Neurontin 400 mg nightly -COPD in a current smoker inhalers -Chronic nicotine dependence cigarette smoker. Currently down to about 2 cigarettes a day Nicotine patch -Left below-knee amputation with a prosthesis. Right foot second third and fourth toe amputation. -Full code Care was discussed with the patient and . Consultation to nephrology, ID, vascular surgery Past Medical History Past Medical History: Coronary Artery Disease (CAD), Heart Failure, COPD, Diabetes Mellitus, Eye Disorder, GERD/Reflux, Hyperlipidemia, Hypertension, Myocardial Infarction ([place]), Osteoarthritis (OA), Renal Disease, Respiratory Disorder, Sleep Apnea/CPAP/BIPAP, Vascular Disorder Additional Past Medical History / Comment(s): Poor circulation in hands and legs/feet. 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 does not wear cpap Last Myocardial Infarction Date:: 2014 History of Any Multi-Drug Resistant Organisms: MRSA Date of last positivie culture/infection: approx 2015 MDRO Source:: right foot Past Surgical History: Heart Catheterization With Stent, Hernia Repair, Tonsillectomy Additional Past Surgical History / Comment(s): Right foot 3rd and 4th AND 5TH toes and area of foot amputated, cyst on scrotum removed. partial amp lt foot but had non healing wound which resulted in lt bka. matilde cataracts removed-has lens implants. x3 rt inguinal hernia sx and an umb hernia repair. BELOW KNEE AMPUTATION , COLONOSCOPY Stent LADx1 03/09/2024-(R) Groin manual pull Past Anesthesia/Blood Transfusion Reactions: No Reported Reaction Additional Past Anesthesia/Blood Transfusion Reaction / Comment(s): States he was in the ICU after his surgery on his toes, but does not know why. Date of Last Stent Placement:: 05/2015 APPROX Smoking Status: Current some day smoker Additional Past Alcohol Use History / Comment(s): few ciagarettets a dayt - Past Family History Father History Unknown: Yes Mother History Unknown: Yes Family Medical History: Cancer, Coronary Artery Disease (CAD) Additional Family Medical History / Comment(s): benign Brain tumor, Kaleva syndrome Sister(s) Family Medical History: No Reported History Medications and Allergies Home Medications Medication Instructions Recorded Confirmed Type Tamsulosin [Flomax] 0.4 mg PO DAILY 04/14/18 03/31/24 History Albuterol Inhaler [Ventolin Hfa 1 - 2 puff INHALATION RT-Q6H PRN 03/09/19 03/31/24 History Inhaler] Isosorbide Mononitrate ER [Imdur] 60 mg PO DAILY 03/11/22 03/31/24 History Pantoprazole [Protonix] 80 mg PO HS 03/11/22 03/31/24 History oxyCODONE-APAP 10-325MG [Percocet 1 tab PO Q6H PRN 03/11/22 03/31/24 History 10-325 mg] FLUoxetine HCL [PROzac] 40 mg PO BID 09/11/23 03/31/24 History Gabapentin [Neurontin] 400 mg PO HS 09/11/23 03/31/24 History Insulin NPH/Reg Insulin 70/30 1 - 100 unit SQ AC-TID 09/11/23 03/31/24 History [humuLIN 70/30 VIAL] amLODIPine [Norvasc] 5 mg PO BID #60 tab 09/12/23 03/31/24 Rx Aspirin EC [Ecotrin Low Dose] 81 mg PO HS 12/16/23 03/31/24 History Loratadine 10 mg PO HS 12/16/23 03/31/24 History Nitroglycerin Sl Tabs [Nitrostat] 0.4 mg SL Q5M PRN 12/16/23 03/31/24 History Torsemide [Demadex] 20 mg PO BID 12/16/23 03/31/24 History allopurinoL [Zyloprim] 100 mg PO DAILY 12/16/23 03/31/24 History Atorvastatin [Lipitor] 40 mg PO HS #30 tab 12/25/23 03/31/24 Rx Metoprolol Succinate (ER) [Toprol 100 mg PO DAILY #30 tab 12/25/23 03/31/24 Rx XL] Ticagrelor [Brilinta] 90 mg PO BID #180 tab 03/10/24 03/31/24 Rx hydrALAZINE HCL [Apresoline] 25 mg PO TID PRN 03/31/24 03/31/24 History Allergies Allergy/AdvReac Type Severity Reaction Status Date / Time codeine AdvReac headache, Verified 03/31/24 08:56 DIZZY, N/V hydrocodone [From Vicodin] AdvReac Nausea & Verified 03/31/24 08:56 Vomiting tramadol AdvReac Nausea & Verified 03/31/24 08:56 Vomiting Physical Exam Vitals: Vital Signs Temp Pulse Resp BP Pulse Ox 03/31/24 07:15 97.9 F 03/31/24 06:11 67 18 150/68 97 03/31/24 02:00 20 03/31/24 01:00 84 20 136/74 95 03/30/24 23:21 99.3 F 74 18 135/73 93 L 03/30/24 22:32 99.0 F 03/30/24 19:40 102.4 F H 102 H 20 163/84 91 L Intake and Output 03/30/24 03/31/24 03/31/24 22:59 06:59 14:59 Other: Weight 120.202 kg Results CBC & Chem 7: 03/31/24 04:05 03/31/24 04:05 Labs: Abnormal Lab Results - Last 24 Hours (Table) 03/30/24 03/30/24 03/30/24 Range/Units 21:00 21:00 21:00 WBC 13.7 H (3.8-10.6) k/uL RBC 3.54 L (4.30-5.90) m/uL Hgb 10.1 L (13.0-17.5) gm/dL Hct 30.8 L (39.0-53.0) % Neutrophils # 12.0 H (1.3-7.7) k/uL Lymphocytes # 0.9 L (1.0-4.8) k/uL APTT 30.7 H (22.0-30.0) sec Sodium (137-145) mmol/L BUN 59 H (9-20) mg/dL Creatinine 2.87 H (0.66-1.25) mg/dL Glucose 212 H (74-99) mg/dL Calcium (8.4-10.2) mg/dL Magnesium 1.3 L (1.6-2.3) mg/dL Alkaline Phosphatase 188 H (38-126) U/L Total Protein (6.3-8.2) g/dL Albumin 3.1 L (3.5-5.0) g/dL 03/31/24 03/31/24 Range/Units 04:05 04:05 WBC 12.1 H (3.8-10.6) k/uL RBC 3.07 L (4.30-5.90) m/uL Hgb 8.9 L (13.0-17.5) gm/dL Hct 26.7 L (39.0-53.0) % Neutrophils # 10.0 H (1.3-7.7) k/uL Lymphocytes # (1.0-4.8) k/uL APTT (22.0-30.0) sec Sodium 134 L (137-145) mmol/L BUN 53 H (9-20) mg/dL Creatinine 2.67 H (0.66-1.25) mg/dL Glucose 180 H (74-99) mg/dL Calcium 7.9 L (8.4-10.2) mg/dL Magnesium 1.3 L (1.6-2.3) mg/dL Alkaline Phosphatase 176 H (38-126) U/L Total Protein 5.6 L (6.3-8.2) g/dL Albumin 2.6 L (3.5-5.0) g/dL
[2024-03-31] MEDS: INSULIN ASPART (NovoLOG) 100 UNIT/ML VIAL SQ SCH (17:41)
[2024-03-31] MEDS: AMPICILLIN-SULBACTAM 3 GM in SODIUM CHLORIDE 0.9% 100 ML IVPB SCH (17:42)
[2024-03-31] MEDS ORDERED: ATORVASTATIN 40 MG TAB PO SCH (21:00)
[2024-03-31] MEDS ORDERED: ASPIRIN 81 MG PO SCH (21:00)
[2024-03-31] MEDS ORDERED: PANTOPRAZOLE 40 MG TABLET PO SCH (21:00)
[2024-03-31] MEDS ORDERED: GABAPENTIN 400 MG CAP PO SCH (21:00)
[2024-03-31] MEDS: LORATADINE 10 MG TAB PO SCH (21:07)
--- NOTE | 2024-04-01 00:42 | CONS ---
CONSULTATION SUBJECTIVE: 58-year-old gentleman, well known to me from the wound clinic. This patient has a history of chronic renal failure and chronic wound right foot plantar aspect with some toe amputation done in the past. The patient also had a left BK amputation done by me in the past. He has a peritoneal dialysis. The patient had some fever and chills yesterday. The patient came to the emergency room. The patient was seen by Infectious Disease, IV antibiotic. PHYSICAL EXAMINATION: NECK: Supple. CHEST: Clear to auscultation. HEART: First and second sounds present. ABDOMEN: Soft. No peritoneal sign noted. EXTREMITIES: Femorals are 1+ bilateral. Right foot plantar aspect, there is a callus with some fluctuation. Left BKA stump has healed and has prosthesis. PLAN: We did do the debridement and deep culture. We used Konjektney gel now and arrange for debridement. MMDIAMONDL / YVONNE: [id number] /
--- NOTE | 2024-04-01 08:47 | P.CONS ---
History of Present Illness - Reason for Consult Consult date: 03/31/24 Fever Requesting physician: Saqib Michele - Chief Complaint Fever x 1 day - History of Present Illness Patient is a 58-year-old male with a past medical history significant for diabetes mellitus hypertension hyperlipidemia COPD coronary artery disease patient did have history of left below the knee amputation and also have amputation of toes of his right foot except the big toe patient apparently did have callus on the plantar aspect of the right foot for the patient has been following with Dr. Denton in the wound care center, patient now presenting to [facility] ER concerning for fever that apparently started the day of presentation to the hospital patient was complaining of fever with rigors and chills and has not been feeling well for the last 3 days before the fever started with decreased appetite patient did spike a fever of 102.6 degrees following right with the patient was brought into the hospital, patient wound apparently was debrided at the wound care center on Tuesday that is 4 days before presentation the hospital at the patient complaining of more swelling and redness to the right foot but denies having any foul-smelling drainage patient did have diabetic neuropathy denies significant pain on presentation to the hospital he was running a temperature of 102.4 F patient was tachycardic but not hypotensive or hypoxic and no need for supplemental oxygen he did have white count of 13.7 BUN/creatinine has been elevated liver isms are normal blood cultures obtained which are currently pending patient did have x-ray of the foot follow-up with erosion to suggest osteomyelitis soft tissue subcutaneous gas pattern fourth digit possibly due to the wound patient was started on vancomycin infectious was consulted for further management of antibiotic therapy Review of Systems Positive point and negatives has been mentioned in the HPI, complete review of systems was performed and all other systems are negative Past Medical History Past Medical History: Coronary Artery Disease (CAD), Heart Failure, COPD, Diabetes Mellitus, Eye Disorder, GERD/Reflux, Hyperlipidemia, Hypertension, Myocardial Infarction ([place]), Osteoarthritis (OA), Renal Disease, Respiratory Disorder, Sleep Apnea/CPAP/BIPAP, Vascular Disorder Additional Past Medical History / Comment(s): Poor circulation in hands and legs/feet. 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 does not wear cpap Last Myocardial Infarction Date:: 2014 History of Any Multi-Drug Resistant Organisms: MRSA Year Discovered:: approx 2016 MDRO Source:: right foot Past Surgical History: Heart Catheterization With Stent, Hernia Repair, Tonsillectomy Additional Past Surgical History / Comment(s): Right foot 3rd and 4th AND 5TH toes and area of foot amputated, cyst on scrotum removed. partial amp lt foot but had non healing wound which resulted in lt bka. matilde cataracts removed-has lens implants. x3 rt inguinal hernia sx and an umb hernia repair. BELOW KNEE AMPUTATION , COLONOSCOPY Stent LADx1 03/09/2024-(R) Groin manual pull Past Anesthesia/Blood Transfusion Reactions: No Reported Reaction Additional Past Anesthesia/Blood Transfusion Reaction / Comm: States he was in the ICU after his surgery on his toes, but does not know why. Date of Last Stent Placement:: 05/2015 APPROX Smoking Status: Current some day smoker Additional Past Alcohol Use History / Comment(s): few ciagarettets a dayt - Past Family History Father History Unknown: Yes Mother History Unknown: Yes Family Medical History: Cancer, Coronary Artery Disease (CAD) Additional Family Medical History / Comment(s): benign Brain tumor, Berhane syndrome Sister(s) Family Medical History: No Reported History Medications and Allergies Home Medications Medication Instructions Recorded Confirmed Type Tamsulosin [Flomax] 0.4 mg PO DAILY 04/14/18 03/31/24 History Albuterol Inhaler [Ventolin Hfa 1 - 2 puff INHALATION RT-Q6H PRN 03/09/19 03/31/24 History Inhaler] Isosorbide Mononitrate ER [Imdur] 60 mg PO DAILY 03/11/22 03/31/24 History Pantoprazole [Protonix] 80 mg PO HS 03/11/22 03/31/24 History oxyCODONE-APAP 10-325MG [Percocet 1 tab PO Q6H PRN 03/11/22 03/31/24 History 10-325 mg] FLUoxetine HCL [PROzac] 40 mg PO BID 09/11/23 03/31/24 History Gabapentin [Neurontin] 400 mg PO HS 09/11/23 03/31/24 History Insulin NPH/Reg Insulin 70/30 1 - 100 unit SQ AC-TID 09/11/23 03/31/24 History [humuLIN 70/30 VIAL] amLODIPine [Norvasc] 5 mg PO BID #60 tab 09/12/23 03/31/24 Rx Aspirin EC [Ecotrin Low Dose] 81 mg PO HS 12/16/23 03/31/24 History Loratadine 10 mg PO HS 12/16/23 03/31/24 History Nitroglycerin Sl Tabs [Nitrostat] 0.4 mg SL Q5M PRN 12/16/23 03/31/24 History Torsemide [Demadex] 20 mg PO BID 12/16/23 03/31/24 History allopurinoL [Zyloprim] 100 mg PO DAILY 12/16/23 03/31/24 History Atorvastatin [Lipitor] 40 mg PO HS #30 tab 12/25/23 03/31/24 Rx Metoprolol Succinate (ER) [Toprol 100 mg PO DAILY #30 tab 12/25/23 03/31/24 Rx XL] Ticagrelor [Brilinta] 90 mg PO BID #180 tab 03/10/24 03/31/24 Rx hydrALAZINE HCL [Apresoline] 25 mg PO TID PRN 03/31/24 03/31/24 History Allergies Allergy/AdvReac Type Severity Reaction Status Date / Time codeine AdvReac headache, Verified 03/31/24 08:56 DIZZY, N/V hydrocodone [From Vicodin] AdvReac Nausea & Verified 03/31/24 08:56 Vomiting tramadol AdvReac Nausea & Verified 03/31/24 08:56 Vomiting Physical Exam Vitals: Vital Signs Temp Pulse Resp BP BP Pulse Ox 03/31/24 08:14 96.9 F L 18 131/57 95 03/31/24 07:15 97.9 F 03/31/24 06:11 67 18 150/68 97 03/31/24 02:00 20 03/31/24 01:00 84 20 136/74 95 03/30/24 23:21 99.3 F 74 18 135/73 93 L 03/30/24 22:32 99.0 F 03/30/24 19:40 102.4 F H 102 H 20 163/84 91 L Intake and Output 03/31/24 03/31/24 03/31/24 06:59 14:59 22:59 Other: Weight 120.202 kg GENERAL DESCRIPTION: Middle-aged male lying in bed, no distress. No tachypnea or accessory muscle of respiration use. HEENT: Shows Pallor , no scleral icterus. Oral mucous membrane is dry. No pharyngeal erythema or thrush NECK: Trachea central, no thyromegaly. LUNGS: Unlabored breathing. Clear to auscultation anteriorly. No wheeze or crackle. HEART: S1, S2, regular rate and rhythm. No loud murmur ABDOMEN: Soft, no tenderness , guarding or rigidity, no organomegaly EXTREMITIES: Right foot plantar aspect did have an infected callus with some purulence around it SKIN: No rash, no masses palpable. NEUROLOGICAL: The patient is awake, alert, oriented x3, mood and affect normal. Results CBC & Chem 7: 03/31/24 04:05 03/31/24 04:05 Labs: Abnormal Lab Results - Last 24 Hours (Table) 03/30/24 03/30/24 03/30/24 Range/Units 21:00 21:00 21:00 WBC 13.7 H (3.8-10.6) k/uL RBC 3.54 L (4.30-5.90) m/uL Hgb 10.1 L (13.0-17.5) gm/dL Hct 30.8 L (39.0-53.0) % Neutrophils # 12.0 H (1.3-7.7) k/uL Lymphocytes # 0.9 L (1.0-4.8) k/uL APTT 30.7 H (22.0-30.0) sec Sodium (137-145) mmol/L BUN 59 H (9-20) mg/dL Creatinine 2.87 H (0.66-1.25) mg/dL Glucose 212 H (74-99) mg/dL Calcium (8.4-10.2) mg/dL Magnesium 1.3 L (1.6-2.3) mg/dL Alkaline Phosphatase 188 H (38-126) U/L Total Protein (6.3-8.2) g/dL Albumin 3.1 L (3.5-5.0) g/dL 03/31/24 03/31/24 Range/Units 04:05 04:05 WBC 12.1 H (3.8-10.6) k/uL RBC 3.07 L (4.30-5.90) m/uL Hgb 8.9 L (13.0-17.5) gm/dL Hct 26.7 L (39.0-53.0) % Neutrophils # 10.0 H (1.3-7.7) k/uL Lymphocytes # (1.0-4.8) k/uL APTT (22.0-30.0) sec Sodium 134 L (137-145) mmol/L BUN 53 H (9-20) mg/dL Creatinine 2.67 H (0.66-1.25) mg/dL Glucose 180 H (74-99) mg/dL Calcium 7.9 L (8.4-10.2) mg/dL Magnesium 1.3 L (1.6-2.3) mg/dL Alkaline Phosphatase 176 H (38-126) U/L Total Protein 5.6 L (6.3-8.2) g/dL Albumin 2.6 L (3.5-5.0) g/dL Assessment and Plan (1) Sepsis Current Visit: Yes Status: Acute Code(s): A41.9 - SEPSIS, UNSPECIFIED ORGANI SM SNOMED Code(s): 81157943 (2) Abscess or cellulitis of foot Current Visit: No Status: Acute Code(s): L03.119 - CELLULITIS OF UNSPECIFIED PART OF LIMB; L02.619 - CUTANEOUS ABSCESS OF UNSPECIFIED FOOT SNOMED Code(s): 61934869 (3) Diabetic foot ulcer associated with type 2 diabetes mellitus Current Visit: No Status: Acute Code(s): E11.621 - TYPE 2 DIABETES MELLITUS WITH FOOT ULCER SNOMED Code(s): 1242567595504 Plan: 1patient presented hospital with sepsis in this patient who did have fever tachycardia elevated white count source likely right diabetic foot infected callus and cellulitis and concerning for possible abscess we will need to cover for the polymicrobial lindsay associated with diabetic foot infection 2-awaiting vascular surgery evaluation for debridement of infected callus and drainage of the abscess sample should be obtained for culture 3continue with vancomycin pharmacy to dose will add Unasyn pending workup completion We will follow on clinical condition and cultures to further adjust medication if needed Thank you for this consultation we will follow the patient along with you Dictation was produced using [employer] dictation software. please excuse any grammatical, word or spelling errors. Time with Patient: Greater than 30
[2024-04-01] MEDS: LIDOCAINE 1% INJ 10MG/ML (20 ML MDV) SQ ONE (09:37)
--- NOTE | 2024-04-01 10:01 | P.GSCN ---
History of Present Illness History of present illness: 58-year-old gentleman history of diabetes known to me from the wound clinic. Patient came with callus formation on plantar aspect of the foot with tenderness patient had a toe amputation done in the past patient also had a left B-K amputation done in the past has no fever or chills present Medical history history of diabetes peripheral vascular disease chronic renal failure on peritoneal dialysis Chest is clear. Second sound present Abdomen soft nontender Vascular femorals are 1+ bilateral patient has a left BKA potation done in the past right foot patient has a callus formation on the plantar aspect of the foot with some tenderness measurement is 1 x 1 cm Plan is debridement of the wound culture Past Medical History Past Medical History: Coronary Artery Disease (CAD), Heart Failure, COPD, Diabetes Mellitus, Eye Disorder, GERD/Reflux, Hyperlipidemia, Hypertension, Myocardial Infarction ([place]), Osteoarthritis ([place]), Renal Disease, Respiratory Disorder, Sleep Apnea/CPAP/BIPAP, Vascular Disorder Additional Past Medical History / Comment(s): Poor circulation in hands and legs/feet. 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 does not wear cpap Last Myocardial Infarction Date:: 2014 History of Any Multi-Drug Resistant Organisms: MRSA Year Discovered:: approx 2016 MDRO Source:: right foot Past Surgical History: Heart Catheterization With Stent, Hernia Repair, Tonsillectomy Additional Past Surgical History / Comment(s): Right foot 3rd and 4th AND 5TH toes and area of foot amputated, cyst on scrotum removed. partial amp lt foot but had non healing wound which resulted in lt bka. matilde cataracts removed-has lens implants. x3 rt inguinal hernia sx and an umb hernia repair. BELOW KNEE AMPUTATION , COLONOSCOPY Stent LADx1 03/09/2024-(R) Groin manual pull Past Anesthesia/Blood Transfusion Reactions: No Reported Reaction Additional Past Anesthesia/Blood Transfusion Reaction / Comm: States he was in the ICU after his surgery on his toes, but does not know why. Date of Last Stent Placement:: 05/2015 APPROX Smoking Status: Current some day smoker Additional Past Alcohol Use History / Comment(s): few ciagarettets a dayt - Past Family History Father History Unknown: Yes Mother History Unknown: Yes Family Medical History: Cancer, Coronary Artery Disease (CAD) Additional Family Medical History / Comment(s): benign Brain tumor, [place] synd elfego Sister(s) Family Medical History: No Reported History Medications and Allergies Home Medications Medication Instructions Recorded Confirmed Type Tamsulosin [Flomax] 0.4 mg PO DAILY 04/14/18 03/31/24 History Albuterol Inhaler [Ventolin Hfa 1 - 2 puff INHALATION RT-Q6H PRN 03/09/19 03/31/24 History Inhaler] Isosorbide Mononitrate ER [Imdur] 60 mg PO DAILY 03/11/22 03/31/24 History Pantoprazole [Protonix] 80 mg PO HS 03/11/22 03/31/24 History oxyCODONE-APAP 10-325MG [Percocet 1 tab PO Q6H PRN 03/11/22 03/31/24 History 10-325 mg] FLUoxetine HCL [PROzac] 40 mg PO BID 09/11/23 03/31/24 History Gabapentin [Neurontin] 400 mg PO HS 09/11/23 03/31/24 History Insulin NPH/Reg Insulin 70/30 1 - 100 unit SQ AC-TID 09/11/23 03/31/24 History [humuLIN 70/30 VIAL] amLODIPine [Norvasc] 5 mg PO BID #60 tab 09/12/23 03/31/24 Rx Aspirin EC [Ecotrin Low Dose] 81 mg PO HS 12/16/23 03/31/24 History Loratadine 10 mg PO HS 12/16/23 03/31/24 History Nitroglycerin Sl Tabs [Nitrostat] 0.4 mg SL Q5M PRN 12/16/23 03/31/24 History Torsemide [Demadex] 20 mg PO BID 12/16/23 03/31/24 History allopurinoL [Zyloprim] 100 mg PO DAILY 12/16/23 03/31/24 History Atorvastatin [Lipitor] 40 mg PO HS #30 tab 12/25/23 03/31/24 Rx Metoprolol Succinate (ER) [Toprol 100 mg PO DAILY #30 tab 12/25/23 03/31/24 Rx XL] Ticagrelor [Brilinta] 90 mg PO BID #180 tab 03/10/24 03/31/24 Rx hydrALAZINE HCL [Apresoline] 25 mg PO TID PRN 03/31/24 03/31/24 History Allergies Allergy/AdvReac Type Severity Reaction Status Date / Time codeine AdvReac headache, Verified 03/31/24 08:56 DIZZY, N/V hydrocodone [From Vicodin] AdvReac Nausea & Verified 03/31/24 08:56 Vomiting tramadol AdvReac Nausea & Verified 03/31/24 08:56 Vomiting Surgical - Exam Vital Signs Temp Pulse Resp BP Pulse Ox 102.4 F H 102 H 20 163/84 91 L 03/30/24 19:40 03/30/24 19:40 03/30/24 19:40 03/30/24 19:40 03/30/24 19:40 Results - Labs 03/31/24 04:05 03/31/24 04:05 Abnormal Lab Results - Last 24 Hours (Table) 04/01/24 Range/Units 03:14 Hemoglobin A1c 9.6 H (<=6.0) % Microbiology - Last 24 Hours (Table) 03/30/24 21:00 Blood Culture - Preliminary Blood Diabetes panel 04/01/24 Range/Units 03:14 Hemoglobin A1c 9.6 H (<=6.0) % Calcium panel 03/31/24 Range/Units 11:36 Phosphorus 3.8 (2.5-4.5) mg/dL
--- NOTE | 2024-04-01 10:03 | P.PCN ---
Description of Procedure: Preop diagnosis is infected callus right foot plantar aspect measurement is 1 x 1 cm Postop the same postdebridement measurement is 1 x 1 x 1 cm Procedure right foot was prepped and draped in Prestel manner 1% lidocaine for infiltrated using sharp knife we did the debridement we excised the callus down to subcu tissue fat devitalized tissue was excised which was sent for culture aerobic and anaerobic hemostasis well-controlled wound was irrigated with saline Medihoney gel applied to the wound this should be changed on a daily basis patient is under care of infectious disease with IV antibiotic advised nonweightbearing
[2024-04-01] MEDS: VANCOMYCIN 2,000 MG in SODIUM CHLORIDE 0.9% 500 ML 500 ML IVPB ONE (11:00)
[2024-04-01 11:20] LABS: Appearance,BF Clear (Clear)
--- NOTE | 2024-04-01 11:33 | P.PN ---
Subjective Patient is seen in follow-up for end-stage renal disease. He is maintained on peritoneal dialysis. No problems with PD exchanges. Foot wound debrided this morning. Vital signs are stable. General: No acute distress. HEENT: Head exam is unremarkable. LUNGS: No audible rhonchi or wheezes. HEART: Rate and Rhythm are regular. ABDOMEN: Obese, nontender. EXTREMITITES: Left AKA. Right foot wrapped. Objective - Vital Signs Vital signs: Vital Signs Temp 98.6 F 04/01/24 07:09 Pulse 84 04/01/24 07:09 Resp 20 04/01/24 07:09 BP 139/75 04/01/24 07:09 Pulse Ox 95 04/01/24 07:09 FiO2 Intake & Output 03/31/24 04/01/24 04/01/24 18:59 06:59 18:59 Output Total 400 100 200 Balance -400 -100 -200 Weight 120.202 kg Output: Urine 400 100 Emesis 200 Other: Voiding Method Urinal - Labs CBC & Chem 7: 03/31/24 04:05 03/31/24 04:05 Labs: Abnormal Lab Results - Last 24 Hours (Table) 04/01/24 Range/Units 03:14 Hemoglobin A1c 9.6 H (<=6.0) % Microbiology - Last 24 Hours (Table) 03/30/24 21:00 Blood Culture - Preliminary Blood Assessment and Plan Plan: Assessment: 1. End-stage renal disease maintained on peritoneal dialysis. 2. Right foot wound on antibiotics. ID and vascular surgery following. Status post debridement this morning. 3. Anemia of chronic kidney disease. On Aranesp. 4. Diabetes mellitus. 5. Hypertension with chronic kidney disease. Stable. 6. Chronic kidney disease mineral bone disease. Phosphorus level normal this admission. Plan: Change PD exchanges to 2 L every 6 hours with 2.5% dextrose solution. Maintain torsemide. Dialysate cell count 17 and clear. No evidence of peritonitis. Monitor vancomycin levels. Dose to be adjusted for renal function.
[2024-04-01] MEDS: DIALYSIS (PERIT 2.5%) 2,000 ML 50 G/2,000 ML BAG INTRAPERIT SCH (12:46)
--- NOTE | 2024-04-01 14:36 | P.PN ---
Subjective Progress Note Date: 04/01/24 This is a 58-year-old male patient was referred to the emergency because of a episode of fever that he encountered at home. He is also known to have a chronic nonhealing wound in his right lower extremity as the patient is diabetic and he has chronic poor circulation to his lower extremities bilaterally. The patient has been seen at the wound center. I noted the wound and there is no active drainage. The white cell count at the time of admission was 13 and the patient was afebrile and hemodynamically stable. He is known to have chronic renal disease maintained on hemodialysis. Patient is 58 with a creatinine of 2.8. Rest of electrolytes are normal. Troponin is at 0.03. No respiratory dif ficulties. Chest x-ray shows no acute abnormalities. X-ray of the foot showed no evidence of any osteomyelitis. No evidence of any gas there is questionable area of gas around the third and the fourth digit that needs to be further investigated by infectious disease. Nevertheless, there is no evidence of any cellulitis and the patient is not toxic and he does not show any signs of septicemia or shock. He is on room air oxygen with a pulse ox of 95%. No chest pain. No altered mentation. His EKG showing a normal sinus rhythm without any significant sinus tachycardia. Chest x-ray was also showing smaller lung volumes and atelectatic changes in lung bases otherwise no other acute abnorm alities are noted. The patient is currently on no antibiotic coverage. On 04/01/2024, patient is doing well. Resting comfortably in bed. The patient underwent a debridement of the right foot wound by vascular surgery. Cultures are still pending for now. The patient is on the IV Unasyn. Hemodynamically stable. On room air oxygen. No other new complaints otherwise for now. HbA1c is at 9.6. Does not look toxic. No altered mentation. No fever. Objective - Vital Signs Vital signs: Vital Signs Temp 98.6 F 04/01/24 07:09 Pulse 84 04/01/24 07:09 Resp 20 04/01/24 07:09 BP 139/75 04/01/24 07:09 Pulse Ox 95 04/01/24 07:09 FiO2 Intake & Output 03/31/24 04/01/24 04/01/24 18:59 06:59 18:59 Output Total 400 100 200 Balance -400 -100 -200 Weight 120.202 kg Output: Urine 400 100 Emesis 200 Other: Voiding Method Urinal - Exam General appearance the patient is morbidly obese, in mild acute respiratory distress currently on room air oxygen without any signs of respiratory distress Head exam was generally normal. There was no scleral icterus or corneal arcus. Mucous membranes were moist. Neck was supple and without jugular venous distension, thyromegaly, or carotid bruits. Carotids were easily palpable bilaterally. There was no adenopathy. Lung sounds are diminished bilaterally and the patient has crackles in the lung bases Cardiac exam revealed the PMI to be normally situated and sized. The rhythm was regular and no extrasystoles were noted during several minutes of auscultation. The first and second heart sounds were normal and physiologic splitting of the second heart sound was noted. There were no murmurs, rubs, clicks, or gallops. Overall heart sounds are distant. Abdomen is obese, soft and nontender. No organomegaly. No direct tenderness or rebound/guarding. The patient has a peritoneal dialysis catheter in place. Extremities reveal an amputation of the left lower extremity, trace edema of the right lower extremity, diminished pulses, no cyanosis or clubbing. A chronic wound, measuring approximately 1/2 cm in size in the sole of the right foot, no active drainage. No palpable gas. Examination of the skin revealed no evidence of significant rashes, suspicious appearing nevi or other concerning lesions. Neurologically, the patient is awake and alert and the patient does not have any focal neurological deficit. Cranial nerves are essentially intact. - Labs CBC & Chem 7: 03/31/24 04:05 03/31/24 04:05 Labs: Abnormal Lab Results - Last 24 Hours (Table) 04/01/24 Range/Units 03:14 Hemoglobin A1c 9.6 H (<=6.0) % Microbiology - Last 24 Hours (Table) 03/30/24 21:00 Blood Culture - Preliminary Blood Assessment and Plan Plan: Fever under investigation. The patient is currently afebrile. Patient is hemodynamically stable. No signs of any systemic toxicity. No leukocytosis. No altered mentation. Chronic wound in the right foot, nondraining, without any clear indication for acute or ongoing infection. Patient is s/p debridement and the patient is currently on IV Unasyn. End-stage renal disease currently undergoing peritoneal dialysis Morbid obesity Obstructive sleep apnea, severe with a AHI of 78, the patient has complex treatment emergent central apneas and the patient accordingly was given an ASV BiPAP device Advanced COPD Peripheral vascular disease with previous BKA on the left End-stage renal disease on hemodialysis Coronary artery disease Diabetes mellitus, with a component of steroid-induced hyperglycemia the patient was given IV Solu-Medrol in the emergency department. Hypertension, with an elevated blood pressure Hyperlipidemia Acid reflux History of smoking Plan Debridement has been done and the patient is currently on IV Unasyn. Resume home meds Vascular surgery and ID evaluation No clear indication of ongoing septicemia/infection
--- NOTE | 2024-04-01 14:46 | P.PN ---
Subjective Progress Note Date: 04/01/24 Patient is a 58-year-old male with multiple comorbidities presented to hospital with a fever concerning for infected callus on the right foot in this patient who is status post bedside debridement of the infected callus and culture by vascular surgeon. On today's evaluation that is 04/01/2024, Patient is afebrile this morning patient denies having any chest pain shortness of breath or cough, the patient is breathing comfortably on room air, patient denies any abdominal pain no diarrhea no nausea no vomiting, P denies pain to the right foot wound area. Patient did not have any CBC or BMP done today diastolic fluid was clear with 17 WBC Vanco levels 11.2 blood local cultures are pending Objective - Vital Signs Vital signs: Vital Signs Temp 98.7 F 04/01/24 12:49 Pulse 96 04/01/24 12:49 Resp 18 04/01/24 12:49 BP 141/70 04/01/24 12:49 Pulse Ox 93 L 04/01/24 12:49 FiO2 Intake & Output 03/31/24 04/01/24 04/01/24 18:59 06:59 18:59 Output Total 400 100 200 Balance -400 -100 -200 Weight 120.202 kg Output: Urine 400 100 Emesis 200 Other: Voiding Method Urinal - Exam GENERAL DESCRIPTION: Middle-age male up in bed in no distress RESPIRATORY SYSTEM: Unlabored breathing , decreased breath sounds at bases HEART: S1 S2 regular rate and rhythm , ABDOMEN: Soft , no tenderness EXTREMITIES: Right foot is currently dressed - Labs CBC & Chem 7: 03/31/24 04:05 03/31/24 04:05 Labs: Abnormal Lab Results - Last 24 Hours (Table) 04/01/24 Range/Units 03:14 Hemoglobin A1c 9.6 H (<=6.0) % Microbiology - Last 24 Hours (Table) 03/30/24 21:00 Blood Culture - Preliminary Blood Assessment and Plan (1) Sepsis Current Visit: Yes Status: Acute Code(s): A41.9 - SEPSIS, UNSPECIFIED ORGANISM SNOMED Code(s): 83798287 (2) Abscess or cellulitis of foot Current Visit: No Status: Acute Code(s): L03.119 - CELLULITIS OF UNSPECIFIED PART OF LIMB; L02.619 - CUTANEOUS ABSCESS OF UNSPECIFIED FOOT SNOMED Code(s): 43250355 (3) Diabetic foot ulcer associated with type 2 diabetes mellitus Current Visit: No Status: Acute Code(s): E11.621 - TYPE 2 DIABETES MELLITUS WITH FOOT ULCER SNOMED Code(s): 2599323577574 Plan: 1patient presented hospital with sepsis in this patient who did have fever tachycardia elevated white count source likely right diabetic foot infected callus and cellulitis and concerning for possible abscess we will need to cover for the polymicrobial lindsay associated with diabetic foot infection 2-patient is status post vascular surgery evaluation and debridement of infected callus and drainage, cultures reviewed which are currently pending 3patient to continue with the vancomycin and Unasyn while waiting for the culture to finalize Dictation was produced using [employer] dictation software. please excuse any grammatical, word or spelling errors. Time with Patient: Less than 30
--- NOTE | 2024-04-01 20:25 | P.PN ---
Progress Note - Text Progress Note Date: 04/01/24 Chief Complaint: Fever Pleasant 58-year-old patient follows with Dr. Harris. Chronic stable medical conditions include CAD, COPD, diabetes, GERD, hyperlipidemia, hypertension, end-stage kidney disease with hemodialysis, obstructive sleep apnea, PAD, left foot BKA with the prosthesis, home oxygen 2.5 L at night. CAD with stent right foot third fourth and fifth toe amputated. Patient is on peritoneal dialysis. Patient follows at the wound care, Dr. Denton but was recently debrided on Tuesday. For about 3 days patient not been feeling well. Decreased appetite. Yesterday spiked a fever of 102.6. Decided to come in. Has a wound on the right foot. Blood cultures drawn in the ER. Did receive vancomycin. at the bedside. Feeling better this morning. Did eat some breakfast. April 01: Patient had a callus at the bottom of the right foot removed by Dr. Denton today. Dressing in place. No further fever. Decreased appetite. Discussed with patient and . On IV Unasyn. Getting his peritoneal dialysis. Diet discussed. Cultures pending-cultures from callus removed today also sent out Active Medications Acetaminophen (Acetaminophen Tab 325 Mg Tab) 650 mg PO Q6HR PRN PRN Reason: Mild Pain or Fever > 100.5 Allopurinol (Allopurinol 100 Mg Tab) 100 mg PO DAILY [facility] Last Admin: 04/01/24 07:33 Dose: 100 mg Amlodipine Besylate (Amlodipine 5 Mg Tab) 5 mg PO BID [facility] Last Admin: 04/01/24 07:33 Dose: 5 mg Aspirin (Aspirin 81 Mg) 81 mg PO [facility] Last Admin: 03/31/24 21:06 Dose: 81 mg Atorvastatin Calcium (Atorvastatin 40 Mg Tab) 40 mg PO [facility] Last Admin: 03/31/24 21:06 Dose: 40 mg Darbepoetin Landen (Darbepoetin Landen 40 Mcg/0.4 Ml Syringe) 40 mcg SQ Q7D [facility] Last Admin: 03/31/24 13:24 Dose: Not Given Dextrose/Water (Dextrose 50% Syringe 50 Ml) 25 ml IVP PER PROTOCOL PRN; Protocol PRN Reason: Hypoglycemia Dextrose/Water (Dextrose 50% Syringe 50 Ml) 50 ml IVP PER PROTOCOL PRN; Protocol PRN Reason: Hypoglycemia Enoxaparin Sodium (Enoxaparin 40 Mg/0.4 Ml Syringe) 40 mg SQ DAILY [facility] Fluoxetine HCl (Fluoxetine Hcl 20 Mg Cap) 40 mg PO BID [facility] Last Admin: 04/01/24 07:33 Dose: 40 mg Gabapentin (Gabapentin 400 Mg Cap) 400 mg PO HS [facility] Last Admin: 03/31/24 21:06 Dose: 400 mg Hydralazine HCl (Hydralazine Hcl 25 Mg Tab) 25 mg PO TID PRN PRN Reason: BP >150 Hydromorphone HCl (Hydromorphone 1 Mg/Ml 1 Ml Syringe) 1 mg IVP Q4HR PRN PRN Reason: Pain Last Admin: 04/01/24 09:24 Dose: 1 mg Peritoneal Dialysis Solution (Delflex With 2.5% Dextrose (2,000 Ml)) 50 g in 2,000 mls @ 0 mls/hr INTRAPERIT Q6HR [facility]; Protocol Last Admin: 04/01/24 18:11 Dose: 1 mls/hr Ampicillin Sodium/Sulbactam (Sodium 3 gm/ Sodium Chloride) 100 mls @ 200 mls/hr IVPB Q8H [facility]; Protocol Insulin Aspart (Insulin Aspart (Novolog) 100 Unit/Ml Vial) 0 unit SQ ACHS [facility]; Protocol Last Admin: 04/01/24 17:01 Dose: 6 unit Isosorbide Mononitrate (Isosorbide Mononitrate Er 60 Mg Tab.Er.24h) 60 mg PO DAILY [facility] Last Admin: 04/01/24 07:33 Dose: 60 mg Loratadine (Loratadine 10 Mg Tab) 10 mg PO HS [facility] Last Admin: 03/31/24 21:07 Dose: 10 mg Metoprolol Succinate (Metoprolol Succinate (Er) 100 Mg Tab.Er.24h) 100 mg PO DAILY [facility] Last Admin: 04/01/24 07:34 Dose: 100 mg Miscellaneous Information (Vancomycin Iv Per Pharmacy 1 Each [facility] [place]) 1 each MISCELLANE DIRECTED PRN; Protocol PRN Reason: Per Protocol Morphine Sulfate (Morphine Sulfate 4 Mg/Ml Syringe) 4 mg IV Q4HR PRN PRN Reason: Severe Pain (Scale 7 to 10) Naloxone HCl (Naloxone 0.4 Mg/Ml 1 Ml Vial) 0.2 mg IV Q2M PRN PRN Reason: Opioid Reversal Nitroglycerin (Nitroglycerin Sl Tabs 0.4 Mg Tab) 0.4 mg SUBLINGUAL Q5M PRN PRN Reason: Chest Pain Ondansetron HCl (Ondansetron 4 Mg/2 Ml Vial) 4 mg IVP Q8HR PRN PRN Reason: Nausea And Vomiting Last Admin: 04/01/24 07:41 Dose: 4 mg Oxycodone/Acetaminophen (Oxycodone-Apap 10-325mg 1 Each Tab) 1 each PO Q6H [facility] Last Admin: 04/01/24 14:47 Dose: Not Given Pantoprazole Sodium (Pantoprazole 40 Mg Tablet) 80 mg PO HS [facility] Last Admin: 03/31/24 21:08 Dose: 80 mg Tamsulosin HCl (Tamsulosin 0.4 Mg Cap.Er.24h) 0.4 mg PO DAILY [facility] Last Admin: 04/01/24 07:33 Dose: 0.4 mg Ticagrelor (Ticagrelor 90 Mg Tab) 90 mg PO BID [facility] Last Admin: 04/01/24 07:35 Dose: 90 mg Torsemide (Torsemide 20 Mg Tab) 20 mg PO BID@0900,1600 [facility] Last Admin: 04/01/24 17:01 Dose: 20 mg Social history: Lives with his . Smokes about half a pack a day for many years-recently down to few cigarettes a day. No alcohol. Did use marijuana in the past. Physical examination: VITAL SIGNS: 98.7, 96, 18, 141 x 70, 93% GENERAL: Sitting at the edge of the bed, comfortable EYES: Pupils equal. Conjunctiva julieta l. HEENT: External appearance of nose and ears normal, oral cavity grossly normal. NECK: JVD not raised; masses not palpable. HEART: First and second heart sounds are normal; no edema. LUNGS:[ Respiratory rate-normal decreased breath sounds. ABDOMEN: Soft, nontender, liver spleen not palpable, no masses palpable. PSYCH: Alert and oriented x3; mood and affect normal MUSCULOSKELETAL: Left BKA. With prosthesis. Right foot second third and fourth toe amputated. Dressing on the right foot INVESTIGATIONS, reviewed in the clinical context: March 31, 2024: White count 12.1 hemoglobin 8.9 platelets 264 sodium 134 potassium 3.9 BUN 53 creatinine 2.67 EKG tracing personally reviewed by me-normal sinus rhythm. Poor R wave progression. Chest x-ray film personally reviewed by me-some cardiomegaly. Some venous prominence Assessment and plan: -Sepsis secondary to right foot infection with chronic wound that is being followed at the wound care center. Is followed by Dr. Denton from vascular.: No further fever Blood cultures done. IV vancomycin. -Chronic right foot wound which is being followed at wound care center., From underlying PAD Dr. Denton from vascular-callus on the foot of her right removed on April 01. Tissue sent for culture -Chronic congestive heart failure exacerbation from systolic dysfunction EF 45%: Demadex -End-stage kidney disease on peritoneal dialysis Nephrology following -Anemia of chronic kidney disease Aranesp -Essential hypertension Toprol-XL 100 mg a day. Amlodipine 5 mg twice daily. Hydralazine-as needed -Diabetes mellitus type 2, chronically insulin Follow Accu-Cheks with sliding scale insulin. -BPH Flomax -Hyperlipidemia Lipitor 40mg nightly -Obesity BMI 38 Weight loss measures -Depression anxiety Prozac 40 mg twice daily -Diabetic peripheral neuropathy Neurontin 400 mg nightly -COPD in a current smoker inhalers -Chronic nicotine dependence cigarette smoker. Currently down to about 2 cigarettes a day Nicotine patch -Left below-knee amputation with a prosthesis. Right foot second third and fourth toe amputation. -Full code Discussed with patient . Await cultures. Past Medical History Past Medical History: Coronary Artery Disease (CAD), Heart Failure, COPD, Diabetes Mellitus, Eye Disorder, GERD/Reflux, Hyperlipidemia, Hypertension, Myocardial Infarction (NM), Osteoarthritis (OA), Renal Disease, Respiratory Disorder, Sleep Apnea/CPAP/BIPAP, Vascular Disorder Additional Past Medical History / Comment(s): Poor circulation in hands and legs/feet. 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 does not wear cpap Last Myocardial Infarction Date:: 2014 History of Any Multi-Drug Resistant Organisms: MRSA Date of last positivie culture/infection: approx 2015 MDRO Source:: right foot Past Surgical History: Heart Catheterization With Stent, Hernia Repair, Tonsillectomy Additional Past Surgical History / Comment(s): Right foot 3rd and 4th AND 5TH toes and area of foot amputated, cyst on scrotum removed. partial amp lt foot but had non healing wound which resulted in lt bka. matilde cataracts removed-has lens implants. x3 rt inguinal hernia sx and an umb hernia repair. BELOW KNEE AMPUTATION , COLONOSCOPY Stent LADx1 03/09/2024-(R) Groin manual pull Past Anesthesia/Blood Transfusion Reactions: No Reported Reaction Additional Past Anesthesia/Blood Transfusion Reaction / Comment(s): States he was in the ICU after his surgery on his toes, but does not know why. Date of Last Stent Placement:: 05/2015 APPROX Smoking Status: Current some day smoker Additional Past Alcohol Use History / Comment(s): few ciagarettets a dayt
[2024-04-01] MEDS: ACETAMINOPHEN TAB 325 MG TAB PO PRN (20:38)
[2024-04-01] MEDS: AMPICILLIN-SULBACTAM 3 GM in SODIUM CHLORIDE 0.9% 100 ML IVPB SCH (20:44)
[2024-04-01] MEDS: hydrALAZINE HCL 25 MG TAB PO PRN (21:59)
[2024-04-02] MEDS: ENOXAPARIN 40 MG/0.4 ML SYRINGE SQ SCH (07:59)
[2024-04-02] MEDS: PSYLLIUM HUSK 100% 6 GM PACKET PO SCH (09:43)
--- NOTE | 2024-04-02 12:51 | P.PN ---
Subjective Progress Note Date: 04/02/24 Principal diagnosis: Reason for follow-up is right diabetic foot infected callus infection, MRSA Patient is a 58-year-old male with multiple comorbidities presented to hospital with a fever concerning for infected callus on the right foot in this patient who is status post bedside debridement of the infected callus and culture by vascular surgeon. On today's evaluation that is 04/02/2024,the patient denies any fever or any chills, patient is breathing comfortably on room air, the patient denies chest pain shortness of breath and no significant cough, patient denies abdominal pain, however has been complaining of nausea and vomiting and did throw up his breakfast this morning pain to the right foot is controlled. Patient did have a Vanco random blood pressure 0.8 cultures currently growing MRSA and gram-negative bacilli Objective - Vital Signs Vital signs: Vital Signs Temp 98.8 F 04/02/24 12:00 Pulse 76 04/02/24 12:00 Resp 20 04/02/24 12:00 BP 153/76 04/02/24 12:00 Pulse Ox 95 04/02/24 12:00 FiO2 Intake & Output 04/01/24 04/02/24 04/02/24 18:59 06:59 18:59 Output Total 200 750 Balance -200 -750 Output: Urine 750 Emesis 200 Other: Voiding Method Urinal Urinal Toilet # Voids 4 - Exam GENERAL DESCRIPTION: Middle-age male up in bed in no distress RESPIRATORY SYSTEM: Unlabored breathing , decreased breath sounds at bases HEART: S1 S2 regular rate and rhythm , ABDOMEN: Soft , no tenderness EXTREMITIES: Right foot is currently dressed - Labs CBC & Chem 7: 03/31/24 04:05 03/31/24 04:05 Labs: Microbiology - Last 24 Hours (Table) 04/01/24 09:27 Gram Stain - Preliminary Foot - Right Wound Culture - Preliminary Presumptive MRSA Gram Neg Bacilli 04/01/24 09:27 Gram Stain - Preliminary Foot - Right Tissue Culture - Preliminary Presumptive MRSA Gram Neg Bacilli 04/01/24 02:12 Gram Stain - Preliminary Dialysate Body Fluid Culture - Preliminary 03/30/24 21:00 Blood Culture - Preliminary Blood Assessment and Plan (1) Sepsis Current Visit: Yes Status: Acute Code(s): A41.9 - SEPSIS, UNSPECIFIED ORGANISM SNOMED Code(s): 94002407 (2) Abscess or cellulitis of foot Current Visit: No Status: Acute Code(s): L03.119 - CELLULITIS OF UNSPECIFIED PART OF LIMB; L02.619 - CUTANEOUS ABSCESS OF UNSPECIFIED FOOT SNOMED Code(s): 51294872 (3) Diabetic foot ulcer associated with type 2 diabetes mellitus Current Visit: No Status: Acute Code(s): E11.621 - TYPE 2 DIABETES MELLITUS WITH FOOT ULCER SNOMED Code(s): 3813392625957 Plan: 1patient presented hospital with sepsis in this patient who did have fever tachycardia elevated white count source likely right diabetic foot infected callus and cellulitis and concerning for possible abscess we will need to cover for the polymicrobial lindsay associated with diabetic foot infection 2-patient is status post vascular surgery evaluation and debridement of infected callus and drainage, cultures currently growing MRSA and gram-negative bacilli 3patient to continue with the vancomycin we will switch Unasyn to cefepime to better cover for the gram-negative while waiting for ID and sensitivity Dictation was produced using [employer] dictation software. please excuse any grammatical, word or spelling errors. Time with Patient: Less than 30
--- NOTE | 2024-04-02 12:55 | P.PN ---
Progress Note - Text 58-year-old diabetic male history of 2 ablations done in the past patient came with infected callus plantar aspect of the right foot patient had a debridement of the right foot callus using Medihoney gel and patient is an IV antibiotic under care of infectious disease culture came back as a presumptive diagnosis MRSA and gram-negative bacilli we have changed her dressing today using Medihoney gel this dressing should be changed on daily basis advised to walk on his heel will come to the wound clinic at [facility] as a follow-up
--- NOTE | 2024-04-02 13:03 | P.PN ---
Subjective patient is seen for follow-up for end-stage renal disease. Maintained on peritoneal dialysis. Complaining of pain in the right foot. No issues with peritoneal dialysis. Objective - Vital Signs Vital signs: Vital Signs Temp 98.8 F 04/02/24 12:00 Pulse 76 04/02/24 12:00 Resp 20 04/02/24 12:00 BP 153/76 04/02/24 12:00 Pulse Ox 95 04/02/24 12:00 FiO2 Intake & Output 04/01/24 04/02/24 04/02/24 18:59 06:59 18:59 Output Total 200 750 Balance -200 -750 Output: Urine 750 Emesis 200 Other: Voiding Method Urinal Urinal Toilet # Voids 4 - Exam patient is awake, comfortable, in no acute distress. Examination of the heart S1 and S2 Examination of the lungs bilateral breath sounds are heard Abdomen is soft nontender obese Examination of lower extremities shows left AKA, right foot is wrapped - Labs CBC & Chem 7: 03/31/24 04:05 03/31/24 04:05 Labs: Microbiology - Last 24 Hours (Table) 04/01/24 09:27 Gram Stain - Preliminary Foot - Right Wound Culture - Preliminary Presumptive MRSA Gram Neg Bacilli 04/01/24 09:27 Gram Stain - Preliminary Foot - Right Tissue Culture - Preliminary Presumptive MRSA Gram Neg Bacilli 04/01/24 02:12 Gram Stain - Preliminary Dialysate Body Fluid Culture - Preliminary 03/30/24 21:00 Blood Culture - Preliminary Blood Assessment and Plan Assessment: 1. End-stage renal disease maintained on peritoneal dialysis. 2. Right foot wound on antibiotics. ID and vascular surgery following. Status post debridement this morning. 3. Anemia of chronic kidney disease. On Aranesp. 4. Diabetes mellitus. 5. Hypertension with chronic kidney disease. Stable. 6. Chronic kidney disease mineral bone disease. Phosphorus level normal this admission. Plan: continue current PD exchanges. Continue with torsemide Continue antibiotics.
[2024-04-02] MEDS: CEFEPIME 2 GM in SODIUM CHLORIDE 0.9% 100 ML IVPB STA (13:15)
[2024-04-02 14:39] VITALS: BMI 38.0
[2024-04-02] MEDS: METOCLOPRAMIDE 10 MG TAB PO SCH (15:43)
--- NOTE | 2024-04-02 19:37 | P.PN ---
Progress Note - Text Progress Note Date: 04/02/24 Chief Complaint: Fever Pleasant 58-year-old patient follows with Dr. Harris. Chronic stable medical conditions include CAD, COPD, diabetes, GERD, hyperlipidemia, hypertension, end-stage kidney disease with hemodialysis, obstructive sleep apnea, PAD, left foot BKA with the prosthesis, home oxygen 2.5 L at night. CAD with stent right foot third fourth and fifth toe amputated. Patient is on peritoneal dialysis. Patient follows at the wound care, Dr. Denton but was recently debrided on Tuesday. For about 3 days patient not been feeling well. Decreased appetite. Yesterday spiked a fever of 102.6. Decided to come in. Has a wound on the right foot. Blood cultures drawn in the ER. Did receive vancomycin. at the bedside. Feeling better this morning. Did eat some breakfast. April 01: Patient had a callus at the bottom of the right foot removed by Dr. Denton today. Dressing in place. No further fever. Decreased appetite. Discussed with patient and . On IV Unasyn. Getting his peritoneal dialysis. Diet discussed. Cultures pending-cultures from callus removed today also sent out April 02: Patient vomited x 2. Will give a short course of Reglan. Wound cultures are growing presumptive MRSA. Gram-negative bacilli. Discussed with patient. Getting IV cefepime and IV vancomycin. Changed to full liquid diet Active Medications Acetaminophen (Acetaminophen Tab 325 Mg Tab) 650 mg PO Q6HR PRN PRN Reason: Mild Pain or Fever > 100.5 Last Admin: 04/01/24 20:38 Dose: 650 mg Allopurinol (Allopurinol 100 Mg Tab) 100 mg PO DAILY [facility] Last Admin: 04/02/24 07:59 Dose: 100 mg Amlodipine Besylate (Amlodipine 5 Mg Tab) 5 mg PO BID [facility] Last Admin: 04/02/24 08:00 Dose: 5 mg Aspirin (Aspirin 81 Mg) 81 mg PO HS [facility] Last Admin: 04/01/24 20:41 Dose: 81 mg Atorvastatin Calcium (Atorvastatin 40 Mg Tab) 40 mg PO HS [facility] Last Admin: 04/01/24 20:41 Dose: 40 mg Darbepoetin Landen (Darbepoetin Landen 40 Mcg/0.4 Ml Syringe) 40 mcg SQ Q7D [facility] Last Admin: 03/31/24 13:24 Dose: Not Given Dextrose/Water (Dextrose 50% Syringe 50 Ml) 25 ml IVP PER PROTOCOL PRN; Protocol PRN Reason: Hypoglycemia Dextrose/Water (Dextrose 50% Syringe 50 Ml) 50 ml IVP PER PROTOCOL PRN; Protocol PRN Reason: Hypoglycemia Enoxaparin Sodium (Enoxaparin 40 Mg/0.4 Ml Syringe) 40 mg SQ DAILY [facility] Last Admin: 04/02/24 07:59 Dose: 40 mg Fluoxetine HCl (Fluoxetine Hcl 20 Mg Cap) 40 mg PO BID [facility] Last Admin: 04/02/24 08:00 Dose: 40 mg Gabapentin (Gabapentin 400 Mg Cap) 400 mg PO HS [facility] Last Admin: 04/01/24 20:42 Dose: 400 mg Hydralazine HCl (Hydralazine Hcl 25 Mg Tab) 25 mg PO TID PRN PRN Reason: BP >150 Last Admin: 04/01/24 21:59 Dose: 25 mg Hydromorphone HCl (Hydromorphone 1 Mg/Ml 1 Ml Syringe) 1 mg IVP Q4HR PRN PRN Reason: Pain Last Admin: 04/02/24 12:51 Dose: 1 mg Peritoneal Dialysis Solution (Delflex With 2.5% Dextrose (2,000 Ml)) 50 g in 2,000 mls @ 0 mls/hr INTRAPERIT Q6HR ARLET; Protocol Last Admin: 04/02/24 17:50 Dose: 2,000 mls/hr Vancomycin HCl 1,750 mg/ (Sodium Chloride) 500 mls @ 167 mls/hr IVPB ONCE ONE Stop: 04/02/24 23:59 Cefepime HCl 1 gm/ Sodium (Chloride) 50 mls @ 12.5 mls/hr IVPB Q12HR [facility]; Protocol Insulin Aspart (Insulin Aspart (Novolog) 100 Unit/Ml Vial) 0 unit SQ ACHS ARLET; Protocol Last Admin: 04/02/24 17:05 Dose: 6 unit Isosorbide Mononitrate (Isosorbide Mononitrate Er 60 Mg Tab.Er.24h) 60 mg PO DAILY [facility] Last Admin: 04/02/24 08:02 Dose: 60 mg Loratadine (Loratadine 10 Mg Tab) 10 mg PO HS [facility] Last Admin: 04/01/24 20:42 Dose: 10 mg Metoclopramide HCl (Metoclopramide 10 Mg Tab) 10 mg PO AC-TID [facility] Last Admin: 04/02/24 17:04 Dose: 10 mg Metoprolol Succinate (Metoprolol Succinate (Er) 100 Mg Tab.Er.24h) 100 mg PO DAILY [facility] Last Admin: 04/02/24 08:00 Dose: 100 mg Miscellaneous Information ([facility]com[facility]) 1 each MISCELLANE DIRECTED PRN; Protocol PRN Reason: Per Protocol Naloxone HCl (Naloxone 0.4 Mg/Ml 1 Ml Vial) 0.2 mg IV Q2M PRN PRN Reason: Opioid Reversal Nitroglycerin (Nitroglycerin Sl Tabs 0.4 Mg Tab) 0.4 mg SUBLINGUAL Q5M PRN PRN Reason: Chest Pain Ondansetron HCl (Ondansetron 4 Mg/2 Ml Vial) 4 mg IVP Q8HR PRN PRN Reason: Nausea And Vomiting Last Admin: 04/01/24 07:41 Dose: 4 mg Oxycodone/Acetaminophen (Oxycodone-Apap 10-325mg 1 Each Tab) 1 each PO Q6H [facility] Last Admin: 04/02/24 15:43 Dose: Not Given Pantoprazole Sodium (Pantoprazole 40 Mg Tablet) 80 mg PO HS [facility] Last Admin: 04/01/24 20:42 Dose: 80 mg Psyllium Hydrophilic Mucilloid (Psyllium Husk 100% 6 Gm Packet) 6 gm PO DAILY [facility] Last Admin: 04/02/24 09:43 Dose: 6 gm Tamsulosin HCl (Tamsulosin 0.4 Mg Cap.Er.24h) 0.4 mg PO DAILY [facility] Last Admin: 04/02/24 08:00 Dose: 0.4 mg Ticagrelor (Ticagrelor 90 Mg Tab) 90 mg PO BID [facility] Last Admin: 04/02/24 08:00 Dose: 90 mg Torsemide (Torsemide 20 Mg Tab) 20 mg PO BID@0900,1600 [facility] Last Admin: 04/02/24 16:04 Dose: 20 mg Social history: Lives with his . Smokes about half a pack a day for many years-recently down to few cigarettes a day. No alcohol. Did use marijuana in the past. Physical examination: VITAL SIGNS: 98.1, 70, 18, 150 x 76, 92% room air GENERAL: Sitting at the edge of the bed, bit tired EYES: Pupils equal. Conjunctiva julieta l. HEENT: External appearance of nose and ears normal, oral cavity grossly normal. NECK: JVD not raised; masses not palpable. HEART: First and second heart sounds are normal; no edema. LUNGS:[ Respiratory rate-normal decreased breath sounds. ABDOMEN: Soft, nontender, liver spleen not palpable, no masses palpable. PSYCH: Alert and oriented x3; mood and affect normal MUSCULOSKELETAL: Left BKA. With prosthesis. Right foot second third and fourth toe amputated. Dressing on the right foot INVESTIGATIONS, reviewed in the clinical context: Troponin I 0.021, 0.021, 0.021. March 31, 2024: White count 12.1 hemoglobin 8.9 platelets 264 sodium 134 potassium 3.9 BUN 53 creatinine 2.67 EKG tracing personally reviewed by me-normal sinus rhythm. Poor R wave pro gression. Chest x-ray film personally reviewed by me-some cardiomegaly. Some venous prominence Assessment and plan: -Sepsis secondary to right foot infection with chronic wound that is being followed at the wound care center. Is followed by Dr. Denton from vascular.: No further fever Wound cultures: Presumptive MRSA, gram-negative bacilli Blood cultures done. IV vancomycin. -Chronic right foot wound which is being followed at wound care center., From underlying PAD Dr. Denton from vascular-callus on the foot of her right removed on April 01. Tissue sent for culture -Chronic congestive heart failure exacerbation from systolic dysfunction EF 45%: Demadex -End-stage kidney disease on peritoneal dialysis Nephrology following -Anemia of chronic kidney disease Aranesp -Essential hypertension Toprol-XL 100 mg a day. Amlodipine 5 mg twice daily. Hydralazine-as needed -Diabetes mellitus type 2, chronically insulin Follow Accu-Cheks with sliding scale insulin. -BPH Flomax -Hyperlipidemia Lipitor 40mg nightly -Obesity BMI 38 Weight loss measures -Depression anxiety Prozac 40 mg twice daily -Diabetic peripheral neuropathy Neurontin 400 mg nightly -COPD in a current smoker inhalers -Chronic nicotine dependence cigarette smoker. Currently down to about 2 cigarettes a day Nicotine patch -Left below-knee amputation with a prosthesis. Right foot second third and fourth toe amputation. -Full code Regular short course. Continue antibiotics. Await cultures. Discussed. Changed to full liquid diet. Past Medical History Past Medical History: Coronary Artery Disease (CAD), Heart Failure, COPD, Diabetes Mellitus, Eye Disorder, GERD/Reflux, Hyperlipidemia, Hypertension, Myocardial Infarction (PR), Osteoarthritis (OA), Renal Disease, Respiratory Disorder, Sleep Apnea/CPAP/BIPAP, Vascular Disorder Additional Past Medical History / Comment(s): Poor circulation in hands and legs/feet. 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 does not wear cpap Last Myocardial Infarction Date:: 2014 History of Any Multi-Drug Resistant Organisms: MRSA Date of last positivie culture/infection: approx 2015 MDRO Source:: right foot Past Surgical History: Heart Catheterization With Stent, Hernia Repair, Tonsillectomy Additional Past Surgical History / Comment(s): Right foot 3rd and 4th AND 5TH toes and area of foot amputated, cyst on scrotum removed. partial amp lt foot b ut had non healing wound which resulted in lt bka. matilde cataracts removed-has lens implants. x3 rt inguinal hernia sx and an umb hernia repair. BELOW KNEE AMPUTATION , COLONOSCOPY Stent LADx1 03/09/2024-(R) Groin manual pull Past Anesthesia/Blood Transfusion Reactions: No Reported Reaction Additional Past Anesthesia/Blood Transfusion Reaction / Comment(s): States he was in the ICU after his surgery on his toes, but does not know why. Date of Last Stent Placement:: 05/2015 APPROX Smoking Status: Current some day smoker Additional Past Alcohol Use History / Comment(s): few ciagarettets a dayt
[2024-04-02] MEDS: CEFEPIME 1 GM in SODIUM CHLORIDE 0.9% 50 ML IVPB SCH (21:50)
[2024-04-02] MEDS: VANCOMYCIN 1,750 MG in SODIUM CHLORIDE 0.9% 500 ML 500 ML IVPB ONE (23:23)
[2024-04-03] MEDS ORDERED: AMPICILLIN-SULBACTAM 3 GM in SODIUM CHLORIDE 0.9% 100 ML IVPB SCH (06:00)
[2024-04-03] MEDS ORDERED: PSYLLIUM HUSK 100% 6 GM PACKET PO SCH (09:00)
--- NOTE | 2024-04-03 13:02 | P.PN ---
Subjective Progress Note Date: 04/03/24 Principal diagnosis: Reason for follow-up is right diabetic foot infected callus infection, MRSA Patient is a 58-year-old male with multiple comorbidities presented to hospital with a fever concerning for infected callus on the right foot in this patient who is status post bedside debridement of the infected callus and culture by vascular surgeon. On today's evaluation that is 04/03/2024,the patient remains to be afebrile, patient is on 2 L nasal cannula supplemental oxygen and denies any shortness of breath no chest pain or cough.Patient denies having any nausea or vomiting, no abdominal pain and no diarrhea has been reported pain to the right foot is currently controlled. Patient did have a creatinine 0.21 local culture growing MRSA and gram-negative bacilli Objective - Vital Signs Vital signs: Vital Signs Temp 98.5 F 04/03/24 08:22 Pulse 80 04/03/24 08:22 Resp 18 04/03/24 08:22 BP 158/74 04/03/24 08:22 Pulse Ox 96 04/03/24 08:22 FiO2 Intake & Output 04/02/24 04/03/24 04/03/24 18:59 06:59 18:59 Output Total 300 220 Balance -300 -220 Weight 120.202 kg Output: Urine 300 220 Other: Voiding Method Toilet Toilet Urinal # Voids 1 # Bowel Movements 1 - Exam GENERAL DESCRIPTION: Middle-age male up in bed in no distress RESPIRATORY SYSTEM: Unlabored breathing , decreased breath sounds at bases HEART: S1 S2 regular rate and rhythm , ABDOMEN: Soft , no tenderness EXTREMITIES: Right foot is currently dressed - Labs CBC & Chem 7: 03/31/24 04:05 03/31/24 04:05 Labs: Microbiology - Last 24 Hours (Table) 04/01/24 09:27 Gram Stain - Preliminary Foot - Right Tissue Culture - Preliminary Presumptive MRSA Gram Neg Bacilli 04/01/24 02:12 Gram Stain - Preliminary Dialysate Body Fluid Culture - Preliminary 03/30/24 21:00 Blood Culture - Preliminary Blood Assessment and Plan (1) Sepsis Current Visit: Yes Status: Acute Code(s): A41.9 - SEPSIS, UNSPECIFIED ORGANI SM SNOMED Code(s): 72553038 (2) Abscess or cellulitis of foot Current Visit: No Status: Acute Code(s): L03.119 - CELLULITIS OF UNSPECIFIED PART OF LIMB; L02.619 - CUTANEOUS ABSCESS OF UNSPECIFIED FOOT SNOMED Code(s): 78688476 (3) Diabetic foot ulcer associated with type 2 diabetes mellitus Current Visit: No Status: Acute Code(s): E11.621 - TYPE 2 DIABETES MELLITUS WITH FOOT ULCER SNOMED Code(s): 4942373450441 Plan: 1patient presented hospital with sepsis in this patient who did have fever tachycardia elevated white count source likely right diabetic foot infected callus and cellulitis and concerning for possible abscess we will need to cover for the polymicrobial lindsay associated with diabetic foot infection 2-patient is status post vascular surgery evaluation and debridement of infected callus and drainage, cultures currently growing MRSA and gram-negative bacilli 3patient currently be treated with the vancomycin and cefepime will discuss with the nephrology if okay for the PICC line for outpatient IV antibiotics Dictation was produced using [employer] dictation software. please excuse any grammatical, word or spelling errors. Time with Patient: Less than 30
--- NOTE | 2024-04-03 13:38 | P.PN ---
Subjective patient is seen for follow-up for end-stage renal disease. Maintained on peritoneal dialysis. Pain in the right foot has improved No issues with peritoneal dialysis. Objective - Vital Signs Vital signs: Vital Signs Temp 98.1 F 04/03/24 13:22 Pulse 75 04/03/24 13:22 Resp 15 04/03/24 13:22 BP 127/70 04/03/24 13:22 Pulse Ox 93 L 04/03/24 13:22 FiO2 Intake & Output 04/02/24 04/03/24 04/03/24 18:59 06:59 18:59 Output Total 300 220 Balance -300 -220 Weight 120.202 kg Output: Urine 300 220 Other: Voiding Method Toilet Toilet Urinal # Voids 1 # Bowel Movements 1 - Exam patient is awake, comfortable, in no acute distress. Examination of the heart S1 and S2 Examination of the lungs bilateral breath sounds are heard Abdomen is soft nontender obese Examination of lower extremities shows left AKA, right foot is wrapped - Labs CBC & Chem 7: 03/31/24 04:05 03/31/24 04:05 Labs: Microbiology - Last 24 Hours (Table) 04/01/24 09:27 Gram Stain - Preliminary Foot - Right Tissue Culture - Preliminary Presumptive MRSA Gram Neg Bacilli 04/01/24 02:12 Gram Stain - Preliminary Dialysate Body Fluid Culture - Preliminary 03/30/24 21:00 Blood Culture - Preliminary Blood Assessment and Plan Assessment: 1. End-stage renal disease maintained on peritoneal dialysis. 2. Right foot wound on antibiotics. ID and vascular surgery following. Status post debridement. 3. Anemia of chronic kidney disease. On Aranesp. 4. Diabetes mellitus. 5. Hypertension with chronic kidney disease. Stable. 6. Chronic kidney disease mineral bone disease. Phosphorus level normal this admission. Plan: continue current PD exchanges. Continue with torsemide Continue antibiotics.
--- NOTE | 2024-04-03 15:25 | P.PN ---
Progress Note - Text Progress Note Date: 04/03/24 Chief Complaint: Fever Pleasant 58-year-old patient follows with Dr. Harris. Chronic stable medical conditions include CAD, COPD, diabetes, GERD, hyperlipidemia, hypertension, end-stage kidney disease with hemodialysis, obstructive sleep apnea, PAD, left foot BKA with the prosthesis, home oxygen 2.5 L at night. CAD with stent right foot third fourth and fifth toe amputated. Patient is on peritoneal dialysis. Patient follows at the wound care, Dr. Denton but was recently debrided on Tuesday. For about 3 days patient not been feeling well. Decreased appetite. Yesterday spiked a fever of 102.6. Decided to come in. Has a wound on the right foot. Blood cultures drawn in the ER. Did receive vancomycin. at the bedside. Feeling better this morning. Did eat some breakfast. April 01: Patient had a callus at the bottom of the right foot removed by Dr. Denton today. Dressing in place. No further fever. Decreased appetite. Discussed with patient and . On IV Unasyn. Getting his peritoneal dialysis. Diet discussed. Cultures pending-cultures from callus removed today also sent out April 02: Patient vomited x 2. Will give a short course of Reglan. Wound cultures are growing presumptive MRSA. Gram-negative bacilli. Discussed with patient. Getting IV cefepime and IV vancomycin. Changed to full liquid diet April 03: Patient doing well on Reglan. Able to keep his full liquids down. Advance to chopped diet today. Cultures not finalized. Remains on IV cefepime and vancomycin. Patient feels more rested and better. Active Medications Acetaminophen (Acetaminophen Tab 325 Mg Tab) 650 mg PO Q6HR PRN PRN Reason: Mild Pain or Fever > 100.5 Last Admin: 04/01/24 20:38 Dose: 650 mg Allopurinol (Allopurinol 100 Mg Tab) 100 mg PO DAILY [facility] Last Admin: 04/03/24 11:22 Dose: 100 mg Amlodipine Besylate (Amlodipine 5 Mg Tab) 5 mg PO BID [facility] Last Admin: 04/03/24 11:22 Dose: 5 mg Aspirin (Aspirin 81 Mg) 81 mg PO [facility] Last Admin: 04/02/24 21:32 Dose: 81 mg Atorvastatin Calcium (Atorvastatin 40 Mg Tab) 40 mg PO [facility] Last Admin: 04/02/24 21:33 Dose: 40 mg Darbepoetin Landen (Darbepoetin Landen 40 Mcg/0.4 Ml Syringe) 40 mcg SQ Q7D [facility] Last Admin: 03/31/24 13:24 Dose: Not Given Dextrose/Water (Dextrose 50% Syringe 50 Ml) 25 ml IVP PER PROTOCOL PRN; Protocol PRN Reason: Hypoglycemia Dextrose/Water (Dextrose 50% Syringe 50 Ml) 50 ml IVP PER PROTOCOL PRN; Protoco l PRN Reason: Hypoglycemia Enoxaparin Sodium (Enoxaparin 40 Mg/0.4 Ml Syringe) 40 mg SQ DAILY [facility] Last Admin: 04/03/24 11:22 Dose: 40 mg Fluoxetine HCl (Fluoxetine Hcl 20 Mg Cap) 40 mg PO BID [facility] Last Admin: 04/03/24 11:23 Dose: 40 mg Gabapentin (Gabapentin 400 Mg Cap) 400 mg PO HS [facility] Last Admin: 04/02/24 21:32 Dose: 400 mg Hydralazine HCl (Hydralazine Hcl 25 Mg Tab) 25 mg PO TID PRN PRN Reason: BP >150 Last Admin: 04/03/24 00:57 Dose: 25 mg Hydromorphone HCl (Hydromorphone 1 Mg/Ml 1 Ml Syringe) 1 mg IVP Q4HR PRN PRN Reason: Pain Last Admin: 04/03/24 05:24 Dose: 1 mg Peritoneal Dialysis Solution (Delflex With 2.5% Dextrose (2,000 Ml)) 50 g in 2,000 mls @ 0 mls/hr INTRAPERIT Q6HR [facility]; Protocol Last Admin: 04/03/24 13:25 Dose: 2,000 mls/hr Cefepime HCl 1 gm/ Sodium (Chloride) 50 mls @ 12.5 mls/hr IVPB Q12HR [facility]; Protocol Last Admin: 04/03/24 11:21 Dose: 12.5 mls/hr Insulin Aspart (Insulin Aspart (Novolog) 100 Unit/Ml Vial) 0 unit SQ ACHS [facility]; Protocol Last Admin: 04/03/24 13:25 Dose: 6 unit Isosorbide Mononitrate (Isosorbide Mononitrate Er 60 Mg Tab.Er.24h) 60 mg PO DAILY [facility] Last Admin: 04/03/24 11:22 Dose: 60 mg Loratadine (Loratadine 10 Mg Tab) 10 mg PO HS [facility] Last Admin: 04/02/24 21:32 Dose: 10 mg Metoclopramide HCl (Metoclopramide 10 Mg Tab) 10 mg PO AC-TID [facility] Stop: 04/03/24 23:59 Last Admin: 04/03/24 11:25 Dose: 10 mg Metoprolol Succinate (Metoprolol Succinate (Er) 100 Mg Tab.Er.24h) 100 mg PO DAILY [facility] Last Admin: 04/03/24 11:23 Dose: 100 mg Miscellaneous Information (Vancomycin Iv Per Pharmacy 1 Each [facility] [place]) 1 each MISCELLANE DIRECTED PRN; Protocol PRN Reason: Per Protocol Naloxone HCl (Naloxone 0.4 Mg/Ml 1 Ml Vial) 0.2 mg IV Q2M PRN PRN Reason: Opioid Reversal Nitroglycerin (Nitroglycerin Sl Tabs 0.4 Mg Tab) 0.4 mg SUBLINGUAL Q5M PRN PRN Reason: Chest Pain Ondansetron HCl (Ondansetron 4 Mg/2 Ml Vial) 4 mg IVP Q8HR PRN PRN Reason: Nausea And Vomiting Last Admin: 04/01/24 07:41 Dose: 4 mg Oxycodone/Acetaminophen (Oxycodone-Apap 10-325mg 1 Each Tab) 1 each PO Q6H [facility] Last Admin: 04/03/24 13:40 Dose: Not Given Pantoprazole Sodium (Pantoprazole 40 Mg Tablet) 80 mg PO [facility] Last Admin: 04/02/24 21:32 Dose: 80 mg Psyllium Hydrophilic Mucilloid (Psyllium Husk 100% 6 Gm Packet) 6 gm PO DAILY [facility] Last Admin: 04/03/24 11:32 Dose: Not Given Tamsulosin HCl (Tamsulosin 0.4 Mg Cap.Er.24h) 0.4 mg PO DAILY [facility] Last Admin: 04/03/24 11:22 Dose: 0.4 mg Ticagrelor (Ticagrelor 90 Mg Tab) 90 mg PO BID [facility] Last Admin: 04/03/24 11:24 Dose: 90 mg Torsemide (Torsemide 20 Mg Tab) 20 mg PO BID@0900,1600 [facility] Last Admin: 04/03/24 11:22 Dose: 20 mg Social history: Lives with his . Smokes about half a pack a day for many years-recently down to few cigarettes a day. No alcohol. Did use marijuana in the past. Physical examination: VITAL SIGNS: 98.1, 75,'s 15, 127 x 70, 93% on 2.5 L GENERAL: Reclining in bed, comfortable EYES: Pupils equal. Conjunctiva julieta l. HEENT: External appearance of nose and ears normal, oral cavity grossly normal. NECK: JVD not raised; masses not palpable. HEART: First and second heart sounds are normal; no edema. LUNGS:[ Respiratory rate-normal decreased breath sounds. ABDOMEN: Soft, nontender, liver spleen not palpable, no masses palpable. PSYCH: Sleepy but able to answer questions comfortably l MUSCULOSKELETAL: Left BKA. With prosthesis. Right foot second third and fourth toe amputated. Dressing on the right foot INVESTIGATIONS, reviewed in the clinical context: Troponin I 0.021, 0.021, 0.021. March 31, 2024: White count 12.1 hemoglobin 8.9 platelets 264 sodium 134 potassium 3.9 BUN 53 creatinine 2.67 EKG tracing personally reviewed by me-normal sinus rhythm. Poor R wave progression. Chest x-ray film personally reviewed by me-some cardiomegaly. Some venous prominence Assessment and plan: -Sepsis secondary to right foot infection with chronic wound that is being followed at the wound care center. Is followed by Dr. Denton from vascular.: No further fever Wound cultures: Presumptive MRSA, gram-negative bacilli Blood cultures done. IV vancomycin. -Chronic right foot wound which is being followed at wound care center., From underlying PAD Dr. Denton from vascular-callus on the foot of her right removed on April 01. Tissue sent for culture -Chronic congestive heart failure exacerbation from systolic dysfunction EF 45%: Demadex -End-stage kidney disease on peritoneal dialysis Nephrology following -Anemia of chronic kidney disease Aranesp -Essential hypertension Toprol-XL 100 mg a day. Amlodipine 5 mg twice daily. Hydralazine-as needed -Diabetes mellitus type 2, chronically insulin Follow Accu-Cheks with sliding scale insulin. -BPH Flomax -Hyperlipidemia Lipitor 40mg nightly -Obesity BMI 38 Weight loss measures -Depression anxiety Prozac 40 mg twice daily -Diabetic peripheral neuropathy Neurontin 400 mg nightly -COPD in a current smoker inhalers -Chronic nicotine dependence cigarette smoker. Currently down to about 2 cigarettes a day Nicotine patch -Left below-knee amputation with a prosthesis. Right foot second third and fourth toe amputation. -Full code Advance diet to chopped. DC Reglan after today. Awaiting wound cultures to finalize antibiotics with ID. Past Medical History Past Medical History: Coronary Artery Disease (CAD), Heart Failure, COPD, Diabetes Mellitus, Eye Disorder, GERD/Reflux, Hyperlipidemia, Hypertension, Myocardial Infarction ([place]), Osteoarthritis (OA), Renal Disease, Respiratory Disorder, Sleep Apnea/CPAP/BIPAP, Vascular Disorder Additional Past Medical History / Comment(s): Poor circulation in hands and l egs/feet. 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 does not wear cpap Last Myocardial Infarction Date:: 2014 History of Any Multi-Drug Resistant Organisms: MRSA Date of last positivie culture/infection: approx 2015 MDRO Source:: right foot Past Surgical History: Heart Catheterization With Stent, Hernia Repair, Tonsillectomy Additional Past Surgical History / Comment(s): Right foot 3rd and 4th AND 5TH toes and area of foot amputated, cyst on scrotum removed. partial amp lt foot but had non healing wound which resulted in lt bka. matilde cataracts removed-has lens implants. x3 rt inguinal hernia sx and an umb hernia repair. BELOW KNEE AMPUTATION , COLONOSCOPY Stent LADx1 03/09/2024-(R) Groin manual pull Past Anesthesia/Blood Transfusion Reactions: No Reported Reaction Additional Past Anesthesia/Blood Transfusion Reaction / Comment(s): States he was in the ICU after his surgery on his toes, but does not know why. Date of Last Stent Placement:: 05/2015 APPROX Smoking Status: Current some day smoker Additional Past Alcohol Use History / Comment(s): few ciagarettets a dayt
--- NOTE | 2024-04-04 11:33 | P.PN ---
Subjective Progress Note Date: 04/04/24 Principal diagnosis: Reason for follow-up is right diabetic foot infected callus infection, MRSA Patient is a 58-year-old male with multiple comorbidities presented to hospital with a fever concerning for infected callus on the right foot in this patient who is status post bedside debridement of the infected callus and culture by vascular surgeon. On today's evaluation that is 04/04/2024, the patient continues to be afebrile, the patient is on 2 L current oxygen and breathing comfortably, the Pt denies having any chest pain or cough, the patient denies having any abdominal pain no vomiting or any diarrhea has been reported by the nursing staff, denies any worsening pain to the right foot. Patient have a vancomycin enema 23.3 foot wound cultures with MRSA Klebsiella and Proteus sensitive to Unasyn and cefepime as well as Rocephin Objective - Vital Signs Vital signs: Vital Signs Temp 98.5 F 04/04/24 06:00 Pulse 73 04/04/24 06:00 Resp 16 04/04/24 06:00 BP 153/82 04/04/24 06:00 Pulse Ox 97 04/04/24 07:53 FiO2 Intake & Output 04/03/24 04/04/24 04/04/24 18:59 06:59 18:59 Output Total 250 400 Balance -250 -400 Output: Urine 250 400 Other: Voiding Method Urinal # Voids 2 # Bowel Movements 1 - Exam GENERAL DESCRIPTION: Middle-age male up in bed in no distress RESPIRATORY SYSTEM: Unlabored breathing , decreased breath sounds at bases HEART: S1 S2 regular rate and rhythm , ABDOMEN: Soft , no tenderness EXTREMITIES: Right foot with a callus on the plantar aspect and surrounding pustule and purulent drainage - Labs CBC & Chem 7: 03/31/24 04:05 03/31/24 04:05 Labs: Microbiology - Last 24 Hours (Table) 04/01/24 09:27 Gram Stain - Final Foot - Right Wound Culture - Final Methicillin resist S. aureus Klebsiella oxytoca Proteus vulgaris group 04/01/24 09:27 Gram Stain - Final Foot - Right Tissue Culture - Final Proteus vulgaris group Methicillin resist S. aureus Klebsiella oxytoca 04/01/24 02:12 Gram Stain - Preliminary Dialysate Body Fluid Culture - Preliminary 04/01/24 09:27 Anaerobic Culture - Preliminary Foot - Right 04/01/24 09:27 Anaerobic Culture - Preliminary Foot - Right Assessment and Plan (1) Sepsis Current Visit: Yes Status: Acute Code(s): A41.9 - SEPSIS, UNSPECIFIED ORGANISM SNOMED Code(s): 39874303 (2) Abscess or cellulitis of foot Current Visit: No Status: Acute Code(s): L03.119 - CELLULITIS OF UNSPECIFIED PART OF LIMB; L02.619 - CUTANEOUS ABSCESS OF UNSPECIFIED FOOT SNOMED Code(s): 80051402 (3) Diabetic foot ulcer associated with type 2 diabetes mellitus Current Visit: No Status: Acute Code(s): E11.621 - TYPE 2 DIABETES MELLITUS WITH FOOT ULCER SNOMED Code(s): 9917988722108 Plan: 1patient presented hospital with sepsis in this patient who did have fever tachycardia elevated white count source likely right diabetic foot infected callus and cellulitis and concerning for possible abscess we will need to cover for the polymicrobial lindsay associated with diabetic foot infection 2-patient is status post vascular surgery evaluation and debridement of infected callus and drainage, cultures currently growing MRSA Proteus and Klebsiella 3patient seem to have developed a pustule and need to be further debridement discussed with the vascular surgeon will be reevaluating the patient this afternoon 4we will continue patient on vancomycin however we will switch cefepime to Unasyn to cover for the gram-negative and anaerobes Dictation was produced using [employer] dictation software. please excuse any grammatical, word or spelling errors. Time with Patient: Less than 30
[2024-04-04] MEDS: AMPICILLIN-SULBACTAM 3 GM in SODIUM CHLORIDE 0.9% 100 ML IVPB SCH (14:12)
--- NOTE | 2024-04-04 18:45 | P.PN ---
Progress Note - Text Progress Note Date: 04/04/24 Chief Complaint: Fever Pleasant 58-year-old patient follows with Dr. Harris. Chronic stable medical conditions include CAD, COPD, diabetes, GERD, hyperlipidemia, hypertension, end-stage kidney disease with hemodialysis, obstructive sleep apnea, PAD, left foot BKA with the prosthesis, home oxygen 2.5 L at night. CAD with stent right foot third fourth and fifth toe amputated. Patient is on peritoneal dialysis. Patient follows at the wound care, Dr. Denton but was recently debrided on Tuesday. For about 3 days patient not been feeling well. Decreased appetite. Yesterday spiked a fever of 102.6. Decided to come in. Has a wound on the right foot. Blood cultures drawn in the ER. Did receive vancomycin. at the bedside. Feeling better this morning. Did eat some breakfast. April 01: Patient had a callus at the bottom of the right foot removed by Dr. Denton today. Dressing in place. No further fever. Decreased appetite. Discussed with patient and . On IV Unasyn. Getting his peritoneal dialysis. Diet discussed. Cultures pending-cultures from callus removed today also sent out April 02: Patient vomited x 2. Will give a short course of Reglan. Wound cultures are growing presumptive MRSA. Gram-negative bacilli. Discussed with patient. Getting IV cefepime and IV vancomycin. Changed to full liquid diet April 03: Patient doing well on Reglan. Able to keep his full liquids down. Advance to chopped diet today. Cultures not finalized. Remains on IV cefepime and vancomycin. Patient feels more rested and better. April 04: Today patient's foot noticed to be boggy around very callus was removed. Pus was being extracted. Dr. Denton was informed. He is planning to take the patient down for OR for further I&D. Otherwise patient tolerating a diet. Patient agreed Patient otherwise had no fever. Diet advanced. No n.p.o. after midnight. On IV Unasyn. Active Medications Acetaminophen (Acetaminophen Tab 325 Mg Tab) 650 mg PO Q6HR PRN PRN Reason: Mild Pain or Fever > 100.5 Last Admin: 04/01/24 20:38 Dose: 650 mg Allopurinol (Allopurinol 100 Mg Tab) 100 mg PO DAILY [facility] Last Admin: 04/04/24 09:52 Dose: 100 mg Amlodipine Besylate (Amlodipine 5 Mg Tab) 5 mg PO BID [facility] Last Admin: 04/04/24 09:53 Dose: 5 mg Aspirin (Aspirin 81 Mg) 81 mg PO HS [facility] Last Admin: 04/03/24 20:56 Dose: 81 mg Atorvastatin Calcium (Atorvastatin 40 Mg Tab) 40 mg PO HS [facility] Last Admin: 04/03/24 20:56 Dose: 40 mg Darbepoetin Landen (Darbepoetin Landen 40 Mcg/0.4 Ml Syringe) 40 mcg SQ Q7D [facility] Last Admin: 03/31/24 13:24 Dose: Not Given Dextrose/Water (Dextrose 50% Syringe 50 Ml) 25 ml IVP PER PROTOCOL PRN; Protocol PRN Reason: Hypoglycemia Dextrose/Water (Dextrose 50% Syringe 50 Ml) 50 ml IVP PER PROTOCOL PRN; Protocol PRN Reason: Hypoglycemia Enoxaparin Sodium (Enoxaparin 40 Mg/0.4 Ml Syringe) 40 mg SQ DAILY [facility] Last Admin: 04/04/24 09:54 Dose: 40 mg Fluoxetine HCl (Fluoxetine Hcl 20 Mg Cap) 40 mg PO BID [facility] Last Admin: 04/04/24 09:53 Dose: 40 mg Gabapentin (Gabapentin 400 Mg Cap) 400 mg PO [facility] Last Admin: 04/03/24 20:56 Dose: 400 mg Hydralazine HCl (Hydralazine Hcl 25 Mg Tab) 25 mg PO TID PRN PRN Reason: BP >150 Last Admin: 04/03/24 00:57 Dose: 25 mg Hydromorphone HCl (Hydromorphone 1 Mg/Ml 1 Ml Syringe) 1 mg IVP Q4HR PRN PRN Reason: Pain Last Admin: 04/04/24 17:44 Dose: 1 mg Peritoneal Dialysis Solution (Delflex With 2.5% Dextrose (2,000 Ml)) 50 g in 2,000 mls @ 0 mls/hr INTRAPERIT Q6HR [facility]; Protocol Last Admin: 04/04/24 18:02 Dose: 2,000 mls/hr Ampicillin Sodium/Sulbactam (Sodium 3 gm/ Sodium Chloride) 100 mls @ 200 mls/hr IVPB Q24HR [facility]; Protocol Last Admin: 04/04/24 14:12 Dose: 200 mls/hr Insulin Aspart (Insulin Aspart (Novolog) 100 Unit/Ml Vial) 0 unit SQ [facility]; Protocol Last Admin: 04/04/24 17:45 Dose: 8 unit Isosorbide Mononitrate (Isosorbide Mononitrate Er 60 Mg Tab.Er.24h) 60 mg PO DAILY [facility] Last Admin: 04/04/24 09:53 Dose: 60 mg Loratadine (Loratadine 10 Mg Tab) 10 mg PO HS [facility] Last Admin: 04/03/24 20:56 Dose: 10 mg Metoprolol Succinate (Metoprolol Succinate (Er) 100 Mg Tab.Er.24h) 100 mg PO DAILY [facility] Last Admin: 04/04/24 09:53 Dose: 100 mg Miscellaneous Information (Vancomycin Iv Per Pharmacy 1 Each Misc) 1 each MISCELLANE DIRECTED PRN; Protocol PRN Reason: Per Protocol Naloxone HCl (Naloxone 0.4 Mg/Ml 1 Ml Vial) 0.2 mg IV Q2M PRN PRN Reason: Opioid Reversal Nitroglycerin (Nitroglycerin Sl Tabs 0.4 Mg Tab) 0.4 mg SUBLINGUAL Q5M PRN PRN Reason: Chest Pain Ondansetron HCl (Ondansetron 4 Mg/2 Ml Vial) 4 mg IVP Q8HR PRN PRN Reason: Nausea And Vomiting Last Admin: 04/01/24 07:41 Dose: 4 mg Oxycodone/Acetaminophen (Oxycodone-Apap 10-325mg 1 Each Tab) 1 each PO Q6H [facility] Last Admin: 04/04/24 16:59 Dose: Not Given Pantoprazole Sodium (Pantoprazole 40 Mg Tablet) 80 mg PO HS [facility] Last Admin: 04/03/24 20:57 Dose: 80 mg Psyllium Hydrophilic Mucilloid (Psyllium Husk 100% 6 Gm Packet) 6 gm PO DAILY [facility] Last Admin: 04/04/24 09:57 Dose: 6 gm Tamsulosin HCl (Tamsulosin 0.4 Mg Cap.Er.24h) 0.4 mg PO DAILY [facility] Last Admin: 04/04/24 09:53 Dose: 0.4 mg Ticagrelor (Ticagrelor 90 Mg Tab) 90 mg PO BID [facility] Last Admin: 04/04/24 09:53 Dose: 90 mg Torsemide (Torsemide 20 Mg Tab) 20 mg PO BID@0900,1600 [facility] Last Admin: 04/04/24 17:45 Dose: 20 mg Social history: Lives with his . Smokes about half a pack a day for many years-recently down to few cigarettes a day. No alcohol. Did use marijuana in the past. Physical examination: VITAL SIGNS: 97.4, 75, 18, 141 x 69, 94% on 2 L GENERAL: Reclining in bed, comfortable EYES: Pupils equal. Conjunctiva julieta l. HEENT: External appearance of nose and ears normal, oral cavity grossly normal. NECK: JVD not raised; masses not palpable. HEART: First and second heart sounds are normal; no edema. LUNGS:[ Respiratory rate-normal decreased breath sounds. ABDOMEN: Soft, nontender, liver spleen not palpable, no masses palpable. PSYCH: Sleepy but able to answer questions comfortably l MUSCULOSKELETAL: Left BKA. With prosthesis. Right foot second third and fourth toe amputated. Pus draining at the previous site of infected callus removal INVESTIGATIONS, reviewed in the clinical context: Troponin I 0.021, 0.021, 0.021. March 31, 2024: White count 12.1 hemoglobin 8.9 platelets 264 sodium 134 potassium 3.9 BUN 53 creatinine 2.67 EKG tracing personally reviewed by me-normal sinus rhythm. Poor R wave progression. Chest x-ray film personally reviewed by me-some cardiomegaly. Some venous prominence Assessment and plan: -Sepsis secondary to right foot infection with chronic wound that is being followed at the wound care center. Is followed by Dr. Denton from vascular.: No further fever Wound cultures: Proteus vulgaris, Klebsiella oxytoca, MRSA Blood cultures done. IV vancomycin. -Chronic right foot wound which is being followed at wound care center., From underlying PAD Dr. Denton from vascular-callus on the foot of her right removed on April 01. Tissue sent for culture New pus draining around the site of the infected callus removed:-Patient made n.p.o. after midnight for I&D tomorrow in the OR.: New diagnosis -Chronic congestive heart failure exacerbation from systolic dysfunction EF 45%: Demadex -End-stage kidney disease on peritoneal dialysis Nephrology following -Anemia of chronic kidney disease Aranesp -Essential hypertension Toprol-XL 100 mg a day. Amlodipine 5 mg twice daily. Hydralazine-as needed -Diabetes mellitus type 2, chronically insulin Follow Accu-Cheks with sliding scale insulin. -BPH Flomax -Hyperlipidemia Lipitor 40mg nightly -Obesity BMI 38 Weight loss measures -Depression anxiety Prozac 40 mg twice daily -Diabetic peripheral neuropathy Neurontin 400 mg nightly -COPD in a current smoker inhalers -Chronic nicotine dependence cigarette smoker. Currently down to about 2 cigarettes a day Nicotine patch -Left below-knee amputation with a prosthesis. Right foot second third and fourth toe amputation. -Full code N.p.o. after midnight for I&D by Dr. Denton tomorrow. Discussed with patient. And ID and Dr. Nava. Past Medical History Past Medical History: Coronary Artery Disease (CAD), Heart Failure, COPD, Diabetes Mellitus, Eye Disorder, GERD/Reflux, Hyperlipidemia, Hypertension, Myocardial Infarction ([place]), Osteoarthritis ([place]), Renal Disease, Respiratory Disorder, Sleep Apnea/CPAP/BIPAP, Vascular Disorder Additional Past Medical History / Comment(s): Poor circulation in hands and legs/feet. 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 does not wear cpap Last Myocardial Infarction Date:: 2014 History of Any Multi-Drug Resistant Organisms: MRSA Date of last positivie culture/infection: approx 2015 MDRO Source:: right foot Past Surgical History: Heart Catheterization With Stent, Hernia Repair, [place] ctomy Additional Past Surgical History / Comment(s): Right foot 3rd and 4th AND 5TH toes and area of foot amputated, cyst on scrotum removed. partial amp lt foot but had non healing wound which resulted in lt bka. matilde cataracts removed-has lens implants. x3 rt inguinal hernia sx and an umb hernia repair. BELOW KNEE AMPUTATION , COLONOSCOPY Stent LADx1 03/09/2024-(R) Groin manual pull Past Anesthesia/Blood Transfusion Reactions: No Reported Reaction Additional Past Anesthesia/Blood Transfusion Reaction / Comment(s): States he was in the ICU after his surgery on his toes, but does not know why. Date of Last Stent Placement:: 05/2015 APPROX Smoking Status: Current some day smoker Additional Past Alcohol Use History / Comment(s): few ciagarettets a dayt
--- NOTE | 2024-04-04 19:07 | P.PN ---
Subjective patient is seen for follow-up for end-stage renal disease. Maintained on peritoneal dialysis. Patient may need further debridement of right foot wound. To be evaluated by vascular surgery. No issues with peritoneal dialysis. Objective - Vital Signs Vital signs: Vital Signs Temp 98.1 F 04/04/24 18:00 Pulse 71 04/04/24 18:00 Resp 16 04/04/24 18:00 BP 151/76 04/04/24 18:00 Pulse Ox 95 04/04/24 18:00 FiO2 Intake & Output 04/04/24 04/04/24 04/05/24 06:59 18:59 06:59 Output Total 400 250 Balance -400 -250 Output: Urine 400 250 Other: Voiding Method Urinal Urinal # Voids 1 # Bowel Movements 1 - Exam patient is awake, comfortable, in no acute distress. Examination of the heart S1 and S2 Examination of the lungs bilateral breath sounds are heard Abdomen is soft nontender obese Examination of lower extremities shows left AKA, right foot wound noted - Labs CBC & Chem 7: 03/31/24 04:05 03/31/24 04:05 Labs: Microbiology - Last 24 Hours (Table) 04/01/24 09:27 Gram Stain - Final Foot - Right Wound Culture - Final Methicillin resist S. aureus Klebsiella oxytoca Proteus vulgaris group 04/01/24 09:27 Gram Stain - Final Foot - Right Tissue Culture - Final Proteus vulgaris group Methicillin resist S. aureus Klebsiella oxytoca 04/01/24 02:12 Gram Stain - Preliminary Dialysate Body Fluid Culture - Preliminary Assessment and Plan Assessment: 1. End-stage renal disease maintained on peritoneal dialysis. 2. Right foot wound on antibiotics. ID and vascular surgery following. Status post debridement. 3. Anemia of chronic kidney disease. On Aranesp. 4. Diabetes mellitus. 5. Hypertension with chronic kidney disease. Stable. 6. Chronic kidney disease mineral bone disease. Phosphorus level normal this admission. Plan: continue current PD exchanges. Continue with torsemide Continue antibiotics.
--- NOTE | 2024-04-05 08:04 | PN ---
PROGRESS NOTE The patient has a history of diabetes. The patient came with infected callus plantar aspect of the right foot. The patient has developed infection on the plantar and dorsal aspect of the foot with some fluctuation and some pus noted. The patient had grew MRSA by culture. The patient is on IV antibiotics. PLAN: The patient will need debridement of the right foot, possible big toe amputation. The patient is scheduled for tomorrow morning. Keep the patient n.p.o. midnight. ALBERTA / YVONNE: [id number] /
[2024-04-05] MEDS: IV FLUID CONTINUATION 1,000 ML IV ONE (09:05)
[2024-04-05] MEDS: INSULIN ASPART (NovoLOG) 100 UNIT/ML VIAL SQ ONE (09:52)
[2024-04-05] MEDS ORDERED: PROPOFOL 10 MG/ML 20 ML VIAL IV ONE (10:10)
[2024-04-05] MEDS ORDERED: fentaNYL (PF) 50 MCG/ML 2 ML AMP ONE (10:10)
[2024-04-05] MEDS ORDERED: GLYCOPYRROLATE 0.2 MG/ML 2 ML VIAL ONE (10:10)
[2024-04-05] MEDS ORDERED: KETAMINE HCL IN 0.9 % NACL 50 MG/5 ML SYRINGE ONE (10:10)
[2024-04-05] MEDS ORDERED: MIDAZOLAM 2 MG/2 ML VIAL ONE (10:10)
[2024-04-05] MEDS ORDERED: ALBUTEROL HFA INHALER INHALATION ONE (10:10)
[2024-04-05] MEDS: VANCOMYCIN 1,750 MG in SODIUM CHLORIDE 0.9% 500 ML 500 ML IVPB ONE (13:03)
--- NOTE | 2024-04-05 14:25 | OP ---
OPERATIVE REPORT DATE OF SERVICE : PREOPERATIVE DIAGNOSIS: Infected callus, left foot plantar aspect, measurement is 6 x 4 cm. POSTOPERATIVE DIAGNOSIS: Infected callus, left foot plantar aspect. Postop measurement 6 x 4 x 2 cm. This patient has history of diabetes and he came with infected callus, which causes swelling and some fluctuation and some drainage from the wound. DESCRIPTION OF PROCEDURE: The patient was taken to the operating room under anesthesia. The foot was prepped and drapes applied in a sterile manner. This patient had a 2nd, 3rd, 4th, and 5th toe removed in the past. Incision was made on the dorsal aspect of the foot, deepened through skin, fat, and fascia, and tendons were divided on the dorsal aspect and this incision was extended on the plantar aspect, deepened through skin, fat, and fascia, and tendons were divided. There was necrotic tissue which was excised with sharp knife. Then, the patient had a 3rd, 4th, and 5th proximal metatarsal bone exposed. Periosteum elevator was used to elevate the periosteum we divided the proximal phalanx at the metatarsophalangeal joint and specimen was removed, which was sent for deep culture. Hemostasis was controlled and the wound was irrigated with hydrogen peroxide and saline. We pump. The patient is on IV antibiotic and dressing. The patient will be seen tomorrow. MMODL / IJN: [id number] /
--- NOTE | 2024-04-05 14:28 | P.PN ---
Subjective Progress Note Date: 04/05/24 Principal diagnosis: Reason for follow-up is right diabetic foot infected callus infection, MRSA Patient is a 58-year-old male with multiple comorbidities presented to hospital with a fever concerning for infected callus on the right foot in this patient who is status post bedside debridement of the infected callus and culture by vascular surgeon. Patient did have OR drainage of the abscess on 04/05/2024 On today's evaluation that is 04/05/2024, Patient is afebrile patient is currently on room air and denies having any shortness of breath, the patient denies any chest pain or cough, the patient denies any nausea vomiting did not have any abdominal pain and no diarrhea patient did have a bleeding from his right foot post surgical debridement and the wound VAC has been put on hold. Patient did have a vancomycin enema 17.8 today Objective - Vital Signs Vital signs: Vital Signs Temp 97.4 F L 04/05/24 11:14 Pulse 66 04/05/24 11:44 Resp 18 04/05/24 11:44 BP 134/65 04/05/24 11:44 Pulse Ox 97 04/05/24 11:44 FiO2 Intake & Output 04/04/24 04/05/24 04/05/24 18:59 06:59 18:59 Intake Total 500 Output Total 250 25 Balance -250 475 Intake: IV 500 Output: Urine 250 Estimated Blood Loss 25 Other: Voiding Method Urinal Urinal # Voids 1 4 # Bowel Movements 1 - Exam GENERAL DESCRIPTION: Middle-age male up in bed in no distress RESPIRATORY SYSTEM: Unlabored breathing , decreased breath sounds at bases HEART: S1 S2 regular rate and rhythm , ABDOMEN: Soft , no tenderness EXTREMITIES: Right foot currently dressed no drainage - Labs CBC & Chem 7: 03/31/24 04:05 03/31/24 04:05 Labs: Microbiology - Last 24 Hours (Table) 04/01/24 02:12 Gram Stain - Final Dialysate Body Fluid Culture - Final 03/30/24 21:00 Blood Culture - Final Blood 04/01/24 09:27 Gram Stain - Final Foot - Right Wound Culture - Final Methicillin resist S. aureus Klebsiella oxytoca Proteus vulgaris group 04/01/24 09:27 Gram Stain - Final Foot - Right Tissue Culture - Final Proteus vulgaris group Methicillin resist S. aureus Klebsiella oxytoca Assessment and Plan (1) Sepsis Current Visit: Yes Status: Acute Code(s): A41.9 - SEPSIS, UNSPECIFIED ORGANISM SNOMED Code(s): 75399364 (2) Abscess or cellulitis of foot Current Visit: No Status: Acute Code(s): L03.119 - CELLULITIS OF UNSPECIFIED PART OF LIMB; L02.619 - CUTANEOUS ABSCESS OF UNSPECIFIED FOOT SNOMED Code(s): 71755499 (3) Diabetic foot ulcer associated with type 2 diabetes mellitus Current Visit: No Status: Acute Code(s): E11.621 - TYPE 2 DIABETES MELLITUS WITH FOOT ULCER SNOMED Code(s): 5998802092110 Plan: 1patient presented hospital with sepsis in this patient who did have fever tachycardia elevated white count source likely right diabetic foot infected callus and cellulitis and concerning for possible abscess we will need to cover for the polymicrobial lindsay associated with diabetic foot infection 2-patient is status post vascular surgery evaluation and debridement of infected callus and drainage, cultures currently growing MRSA Proteus and Klebsiella 3patient did have repeat surgical drainage operative report is pending to see the depth of infection will likely need IV antibiotics on discharge for now continue with vancomycin and Unasyn Dictation was produced using [employer] dictation software. please excuse any grammatical, word or spelling errors. Time with Patient: Less than 30
[2024-04-05] MEDS: SILVER NITRATE APPLICATOR 1 EACH STICK..EA. TOPICAL STA (15:49)
--- NOTE | 2024-04-05 19:37 | P.PN ---
Progress Note - Text Progress Note Date: 04/05/24 Chief Complaint: Fever Pleasant 58-year-old patient follows with Dr. Harris. Chronic stable medical conditions include CAD, COPD, diabetes, GERD, hyperlipidemia, hypertension, end-stage kidney disease with hemodialysis, obstructive sleep apnea, PAD, left foot BKA with the prosthesis, home oxygen 2.5 L at night. CAD with stent right foot third fourth and fifth toe amputated. Patient is on peritoneal dialysis. Patient follows at the wound care, Dr. Denton but was recently debrided on Tuesday. For about 3 days patient not been feeling well. Decreased appetite. Yesterday spiked a fever of 102.6. Decided to come in. Has a wound on the right foot. Blood cultures drawn in the ER. Did receive vancomycin. at the bedside. Feeling better this morning. Did eat some breakfast. April 01: Patient had a callus at the bottom of the right foot removed by Dr. Denton today. Dressing in place. No further fever. Decreased appetite. Discussed with patient and . On IV Unasyn. Getting his peritoneal dialysis. Diet discussed. Cultures pending-cultures from callus removed today also sent out April 02: Patient vomited x 2. Will give a short course of Reglan. Wound cultures are growing presumptive MRSA. Gram-negative bacilli. Discussed with patient. Getting IV cefepime and IV vancomycin. Changed to full liquid diet April 03: Patient doing well on Reglan. Able to keep his full liquids down. Advance to chopped diet today. Cultures not finalized. Remains on IV cefepime and vancomycin. Patient feels more rested and better. April 04: Today patient's foot noticed to be boggy around very callus was removed. Pus was being extracted. Dr. Denton was informed. He is planning to take the patient down for OR for further I&D. Otherwise patient tolerating a diet. Patient agreed Patient otherwise had no fever. Diet advanced. No n.p.o. after midnight. On IV Unasyn. April 05: Patient was taken to the OR by Dr. Denton today. I&D was carried out. For the infected callus surrounding area. Patient returns with a wound VAC. Spoke to the patient and the . Deep cultures were sent. Continue IV vancomycin and Unasyn as per ID. Active Medications Acetaminophen (Acetaminophen Tab 325 Mg Tab) 650 mg PO Q6HR PRN PRN Reason: Mild Pain or Fever > 100.5 Last Admin: 04/01/24 20:38 Dose: 650 mg Allopurinol (Allopurinol 100 Mg Tab) 100 mg PO DAILY [facility] Last Admin: 04/05/24 12:15 Dose: Not Given Amlodipine Besylate (Amlodipine 5 Mg Tab) 5 mg PO BID [facility] Last Admin: 04/05/24 08:26 Dose: 5 mg Aspirin (Aspirin 81 Mg) 81 mg PO HS [facility] Last Admin: 04/04/24 22:46 Dose: 81 mg Atorvastatin Calcium (Atorvastatin 40 Mg Tab) 40 mg PO HS [facility] Last Admin: 04/04/24 22:46 Dose: 40 mg Darbepoetin Landen (Darbepoetin Landen 40 Mcg/0.4 Ml Syringe) 40 mcg SQ Q7D [facility] Last Admin: 03/31/24 13:24 Dose: Not Given Dextrose/Water (Dextrose 50% Syringe 50 Ml) 25 ml IVP PER PROTOCOL PRN; Protocol PRN Reason: Hypoglycemia Dextrose/Water (Dextrose 50% Syringe 50 Ml) 50 ml IVP PER PROTOCOL PRN; Protocol PRN Reason: Hypoglycemia Enoxaparin Sodium (Enoxaparin 40 Mg/0.4 Ml Syringe) 40 mg SQ DAILY [facility] Last Admin: 04/05/24 08:15 Dose: Not Given Fluoxetine HCl (Fluoxetine Hcl 20 Mg Cap) 40 mg PO BID [facility] Last Admin: 04/05/24 12:15 Dose: Not Given Gabapentin (Gabapentin 400 Mg Cap) 400 mg PO HS [facility] Last Admin: 04/04/24 22:45 Dose: 400 mg Hydralazine HCl (Hydralazine Hcl 25 Mg Tab) 25 mg PO TID PRN PRN Reason: BP >150 Last Admin: 04/03/24 00:57 Dose: 25 mg Hydromorphone HCl (Hydromorphone 1 Mg/Ml 1 Ml Syringe) 1 mg IVP Q4HR PRN PRN Reason: Pain Last Admin: 04/05/24 17:32 Dose: 1 mg Peritoneal Dialysis Solution (Delflex With 2.5% Dextrose (2,000 Ml)) 50 g in 2,000 mls @ 0 mls/hr INTRAPERIT Q6HR [facility]; Protocol Last Admin: 04/05/24 18:06 Dose: 2,000 mls/hr Ampicillin Sodium/Sulbactam (Sodium 3 gm/ Sodium Chloride) 100 mls @ 200 mls/hr IVPB Q24HR [facility]; Protocol Last Admin: 04/05/24 12:19 Dose: 200 mls/hr Insulin Aspart (Insulin Aspart (Novolog) 100 Unit/Ml Vial) 0 unit SQ ACHS [facility]; Protocol Last Admin: 04/05/24 17:33 Dose: 6 unit Isosorbide Mononitrate (Isosorbide Mononitrate Er 60 Mg Tab.Er.24h) 60 mg PO DAILY [facility] Last Admin: 04/05/24 08:26 Dose: 60 mg Loratadine (Loratadine 10 Mg Tab) 10 mg PO HS [facility] Last Admin: 04/04/24 22:45 Dose: 10 mg Metoprolol Succinate (Metoprolol Succinate (Er) 100 Mg Tab.Er.24h) 100 mg PO D AILY [facility] Last Admin: 04/05/24 08:26 Dose: 100 mg Miscellaneous Information (Vancomycin Iv Per Pharmacy 1 Each [facility]) 1 each MISCELLANE DIRECTED PRN; Protocol PRN Reason: Per Protocol Naloxone HCl (Naloxone 0.4 Mg/Ml 1 Ml Vial) 0.2 mg IV Q2M PRN PRN Reason: Opioid Reversal Nitroglycerin (Nitroglycerin Sl Tabs 0.4 Mg Tab) 0.4 mg SUBLINGUAL Q5M PRN PRN Reason: Chest Pain Ondansetron HCl (Ondansetron 4 Mg/2 Ml Vial) 4 mg IVP Q8HR PRN PRN Reason: Nausea And Vomiting Last Admin: 04/05/24 09:42 Dose: 4 mg Oxycodone/Acetaminophen (Oxycodone-Apap 10-325mg 1 Each Tab) 1 each PO Q6H [facility] Last Admin: 04/05/24 15:50 Dose: Not Given Pantoprazole Sodium (Pantoprazole 40 Mg Tablet) 80 mg PO HS [facility] Last Admin: 04/04/24 22:46 Dose: 80 mg Psyllium Hydrophilic Mucilloid (Psyllium Husk 100% 6 Gm Packet) 6 gm PO DAILY [facility] Last Admin: 04/05/24 12:15 Dose: Not Given Tamsulosin HCl (Tamsulosin 0.4 Mg Cap.Er.24h) 0.4 mg PO DAILY [facility] Last Admin: 04/05/24 12:15 Dose: Not Given Ticagrelor (Ticagrelor 90 Mg Tab) 90 mg PO BID [facility] Last Admin: 04/05/24 12:15 Dose: Not Given Torsemide (Torsemide 20 Mg Tab) 20 mg PO BID@0900,1600 [facility] Last Admin: 04/05/24 17:33 Dose: 20 mg Social history: Lives with his . Smokes about half a pack a day for many years-recently down to few cigarettes a day. No alcohol. Did use marijuana in the past. Physical examination: VITAL SIGNS: 97.3, 66, 18, 135 x 71, 96% room air GENERAL: Reclining in bed, comfortable EYES: Pupils equal. Conjunctiva julieta l. HEENT: External appearance of nose and ears normal, oral cavity grossly normal. NECK: JVD not raised; masses not palpable. HEART: First and second heart sounds are normal; no edema. LUNGS:[ Respiratory rate-normal decreased breath sounds. ABDOMEN: Soft, nontender, liver spleen not palpable, no masses palpable. PSYCH: Sleepy but able to answer questions comfortably l MUSCULOSKELETAL: Left BKA. With prosthesis. Right foot second third and fourth toe amputated. Wound VAC in place INVESTIGATIONS, reviewed in the clinical context: Troponin I 0.021, 0.021, 0.021. March 31, 2024: White count 12.1 hemoglobin 8.9 platelets 264 sodium 134 potassium 3.9 BUN 53 creatinine 2.67 EKG tracing personally reviewed by me-normal sinus rhythm. Poor R wave progression. Chest x-ray film personally reviewed by me-some cardiomegaly. Some venous prominence Assessment and plan: -Sepsis secondary to right foot infection with chronic wound that is being followed at the wound care center. Is followed by Dr. Denton from vascular.: Wound cultures: Proteus vulgaris, Klebsiella oxytoca, MRSA Blood cultures done. IV vancomycin. -Acute on chronic right foot wound which is being followed at wound care center., From underlying PAD Dr. Denton from vascular-callus on the foot of her right removed on April 01. Tissue sent for culture New pus draining around the site of the infected callus removed:-Patient taken back to the OR for further debridement on April [address] Denton. Wound VAC applied On IV vancomycin IV Unasyn -Chronic congestive heart failure exacerbation from systolic dysfunction EF 45%: Demadex -End-stage kidney disease on peritoneal dialysis Nephrology following -Anemia of chronic kidney disease Aranesp -Essential hypertension Toprol-XL 100 mg a day. Amlodipine 5 mg twice daily. Hydralazine-as needed -Diabetes mellitus type 2, chronically insulin Follow Accu-Cheks with sliding scale insulin. -BPH Flomax -Hyperlipidemia Lipitor 40mg nightly -Obesity BMI 38 Weight loss measures -Depression anxiety Prozac 40 mg twice daily -Diabetic peripheral neuropathy Neurontin 400 mg nightly -COPD in a current smoker inhalers -Chronic nicotine dependence cigarette smoker. Currently down to about 2 cigarettes a day Nicotine patch -Left below-knee amputation with a prosthesis. Right foot second third and fourth toe amputation. -Full code Status post I&D. Wound VAC. Antibiotics to continue. Discussed with the patient and . Past Medical History Past Medical History: Coronary Artery Disease (CAD), Heart Failure, COPD, Diabetes Mellitus, Eye Disorder, GERD/Reflux, Hyperlipidemia, Hypertension, Myocardial Infarction ([place]), Osteoarthritis (OA), Renal Disease, Respiratory Disorder, Sleep Apnea/CPAP/BIPAP, Vascular Disorder Additional Past Medical History / Comment(s): Poor circulation in hands and legs/feet. 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 does not wear cpap Last Myocardial Infarction Date:: 2014 History of Any Multi-Drug Resistant Organisms: MRSA Date of last positivie culture/infection: approx 2015 MDRO Source:: right foot Past Surgical History: Heart Catheterization With Stent, Hernia Repair, Tonsillectomy Additional Past Surgical History / Comment(s): Right foot 3rd and 4th AND 5TH toes and area of foot amputated, cyst on scrotum removed. partial amp lt foot but had non healing wound which resulted in lt bka. matilde cataracts removed-has lens implants. x3 rt inguinal hernia sx and an umb hernia repair. BELOW KNEE AMPUTATION , COLONOSCOPY Stent LADx1 03/09/2024-(R) Groin manual pull Past Anesthesia/Blood Transfusion Reactions: No Reported Reaction Additional Past Anesthesia/Blood Transfusion Reaction / Comment(s): States he was in the ICU after his surgery on his toes, but does not know why. Date of Last Stent Placement:: 05/2015 APPROX Smoking Status: Current some day smoker Additional Past Alcohol Use History / Comment(s): few ciagarettets a dayt
[2024-04-06 04:13] LABS: Basophils % (A) 0 %; Eosinophils # (A) 0.3 k/uL (0-0.7); Eosinophils % (A) 4 %; HCT 22.2 % (39.0-53.0); Hypochromasia Slight; Lymphocytes # (A) 1.6 k/uL (1.0-4.8); Lymphocytes % (A) 17 %; MCH 28.4 pg (25.0-35.0); MCHC 32.1 g/dL (31.0-37.0); MCV 88.5 fL (80.0-100.0); Mean Platelet Volume 8.8; Monocytes # (A) 0.4 k/uL (0-1.0); Monocytes % (A) 5 %; Neutrophils # (A) 6.7 k/uL (1.3-7.7); Neutrophils % (A) 72 %; Platelet Count 309 k/uL (150-450); RBC 2.51 m/uL (4.30-5.90); RDW 13.8 % (11.5-15.5); WBC 9.2 k/uL (3.8-10.6)
[2024-04-06 04:17] LABS: HGB 7.1 gm/dL (13.0-17.5)
[2024-04-06 04:27] LABS: ALT 31 U/L (4-49); AST 30 U/L (17-59); African American GFR (CKD) 20 (>60 ml/min/1.73 sqM); Albumin 2.3 g/dL (3.5-5.0); Albumin/Globulin Ratio 0.8; Alkaline Phosphatase 137 U/L (38-126); Anion Gap 3 mmol/L; Blood Urea Nitrogen 40 mg/dL (9-20); C Reactive Protein 6.6 mg/dL (<1.0); Calcium 7.7 mg/dL (8.4-10.2); Carbon Dioxide 28 mmol/L (22-30); Chloride 105 mmol/L (98-107); Glucose 272 mg/dL (74-99); Non-African American GFR(CKD) 18 (>60 ml/min/1.73 sqM); Potassium 3.5 mmol/L (3.5-5.1); Sodium 136 mmol/L (137-145); Total Bilirubin 0.2 mg/dL (0.2-1.3); Total Protein 5.3 g/dL (6.3-8.2)
[2024-04-06] MEDS ORDERED: NALOXONE 0.4 MG/ML 1 ML VIAL IV PRN (11:50)
--- NOTE | 2024-04-06 13:28 | P.PN ---
Subjective Progress Note Date: 04/06/24 Principal diagnosis: Reason for follow-up is right diabetic foot infected callus infection, MRSA Patient is a 58-year-old male with multiple comorbidities presented to hospital with a fever concerning for infected callus on the right foot in this patient who is status post bedside debridement of the infected callus and culture by vascular surgeon. Patient did have OR drainage of the abscess on 04/05/2024 On today's evaluation that is 04/06/2024, patient has been afebrile, patient is breathing comfortably and is currently on room air, patient denies having any significant cough no chest pain, patient denies nausea vomiting or diarrhea and no abdominal pain complaint has been to the right foot wound area. Patient white count is 9.2, creatinine 3.56 Objective - Vital Signs Vital signs: Vital Signs Temp 98.3 F 04/06/24 07:30 Pulse 73 04/06/24 07:30 Resp 18 04/06/24 07:30 BP 131/74 04/06/24 07:30 Pulse Ox 95 04/06/24 07:30 FiO2 Intake & Output 04/05/24 04/06/24 04/06/24 18:59 06:59 18:59 Intake Total 500 Output Total 725 Balance -225 Weight 120.202 kg Intake: IV 500 Output: Urine 700 Estimated Blood Loss 25 Other: Voiding Method Urinal Urinal # Voids 4 - Exam GENERAL DESCRIPTION: Middle-age male up in bed in no distress RESPIRATORY SYSTEM: Unlabored breathing , decreased breath sounds at bases HEART: S1 S2 regular rate and rhythm , ABDOMEN: Soft , no tenderness EXTREMITIES: Right foot currently dressed no drainage - Labs CBC & Chem 7: 04/06/24 03:28 04/06/24 03:28 Labs: Abnormal Lab Results - Last 24 Hours (Table) 04/06/24 04/06/24 Range/Units 03:28 03:28 RBC 2.51 L (4.30-5.90) m/uL Hgb 7.1 L D (13.0-17.5) gm/dL Hct 22.2 L (39.0-53.0) % Sodium 136 L (137-145) mmol/L BUN 40 H (9-20) mg/dL Creatinine 3.56 H (0.66-1.25) mg/dL Glucose 272 H (74-99) mg/dL Calcium 7.7 L (8.4-10.2) mg/dL Alkaline Phosphatase 137 H (38-126) U/L C-Reactive Protein 6.6 H (<1.0) mg/dL Total Protein 5.3 L (6.3-8.2) g/dL Albumin 2.3 L (3.5-5.0) g/dL Microbiology - Last 24 Hours (Table) 04/05/24 10:00 Gram Stain - Preliminary Other - Other 04/01/24 09:27 Anaerobic Culture - Final Foot - Right 04/01/24 09:27 Anaerobic Culture - Final Foot - Right Assessment and Plan (1) Sepsis Current Visit: Yes Status: Acute Code(s): A41.9 - SEPSIS, UNSPECIFIED ORGANISM SNOMED Code(s): 07639887 (2) Abscess or cellulitis of foot Current Visit: No Status: Acute Code(s): L03.119 - CELLULITIS OF UNSPECIFIED PART OF LIMB; L02.619 - CUTANEOUS ABSCESS OF UNSPECIFIED FOOT SNOMED Code(s): 02654207 (3) Diabetic foot ulcer associated with type 2 diabetes mellitus Current Visit: No Status: Acute Code(s): E11.621 - TYPE 2 DIABETES MELLITUS WITH FOOT ULCER SNOMED Code(s): 6414755904883 Plan: 1patient presented hospital with sepsis in this patient who did have fever t achycardia elevated white count source likely right diabetic foot infected callus and cellulitis and concerning for possible abscess we will need to cover for the polymicrobial lindsay associated with diabetic foot infection 2-patient is status post vascular surgery evaluation and debridement of infected callus and drainage, cultures currently growing MRSA Proteus and Klebsiella 3patient did have repeat surgical drainage cultures are currently pending we will order a PICC line for outpatient antibiotic therapy has been cleared by nephrology 4continue the vancomycin and Unasyn plan is for at least 4 to 6-week course of antibiotic depending upon clinical response Dictation was produced using [employer] software. please excuse any grammatical, word or spelling errors. Time with Patient: Less than 30
[2024-04-06 15:02] LABS: Glucose,Whole Blood 208 mg/dL (70-110)
[2024-04-06 15:02] LABS: Glucose,Whole Blood 277 mg/dL (70-110)
[2024-04-06 15:03] LABS: Glucose,Whole Blood 281 mg/dL (70-110)
[2024-04-06 15:03] LABS: Glucose,Whole Blood 339 mg/dL (70-110)
[2024-04-06 15:03] LABS: Glucose,Whole Blood 272 mg/dL (70-110)
[2024-04-06 15:03] LABS: Glucose,Whole Blood 361 mg/dL (70-110)
[2024-04-06 15:03] LABS: Glucose,Whole Blood 313 mg/dL (70-110)
[2024-04-06 15:03] LABS: Glucose,Whole Blood 329 mg/dL (70-110)
[2024-04-06 15:03] LABS: Glucose,Whole Blood 398 mg/dL (70-110)
[2024-04-06 15:03] LABS: Glucose,Whole Blood 247 mg/dL (70-110)
[2024-04-06 15:03] LABS: Glucose,Whole Blood 304 mg/dL (70-110)
[2024-04-06 15:03] LABS: Glucose,Whole Blood 309 mg/dL (70-110)
[2024-04-06 15:03] LABS: Glucose,Whole Blood 208 mg/dL (70-110)
[2024-04-06 15:03] LABS: Glucose,Whole Blood 366 mg/dL (70-110)
[2024-04-06 15:04] LABS: Glucose,Whole Blood 392 mg/dL (70-110)
[2024-04-06 15:04] LABS: Glucose,Whole Blood 288 mg/dL (70-110)
[2024-04-06 15:04] LABS: Glucose,Whole Blood 361 mg/dL (70-110)
[2024-04-06 15:04] LABS: Glucose,Whole Blood 390 mg/dL (70-110)
[2024-04-06 15:04] LABS: Glucose,Whole Blood 228 mg/dL (70-110)
[2024-04-06 15:04] LABS: Glucose,Whole Blood 270 mg/dL (70-110)
[2024-04-06 15:04] LABS: Glucose,Whole Blood 385 mg/dL (70-110)
[2024-04-06 15:05] LABS: Glucose,Whole Blood 262 mg/dL (70-110)
[2024-04-06 15:05] LABS: Glucose,Whole Blood 320 mg/dL (70-110)
[2024-04-06 15:06] LABS: Glucose,Whole Blood 271 mg/dL (70-110)
[2024-04-06 15:06] LABS: Glucose,Whole Blood 269 mg/dL (70-110)
[2024-04-06 15:06] LABS: Glucose,Whole Blood 277 mg/dL (70-110)
[2024-04-06 15:06] LABS: Glucose,Whole Blood 359 mg/dL (70-110)
[2024-04-06 15:07] LABS: Glucose,Whole Blood 308 mg/dL (70-110)
[2024-04-06] MEDS ORDERED: HYDROmorphone 0.5 MG/0.5 ML SYRINGE IVP PRN (16:13)
--- NOTE | 2024-04-06 16:20 | P.PN ---
Subjective patient is seen for follow-up for end-stage renal disease. Maintained on peritoneal dialysis. Status post repeat I&D of right foot wound on 04/05/2024 No issues with peritoneal dialysis. Objective - Vital Signs Vital signs: Vital Signs Temp 98.0 F 04/06/24 13:47 Pulse 73 04/06/24 13:47 Resp 18 04/06/24 13:47 BP 125/70 04/06/24 13:47 Pulse Ox 95 04/06/24 13:47 FiO2 Intake & Output 04/05/24 04/06/24 04/06/24 18:59 06:59 18:59 Intake Total 500 Output Total 725 Balance -225 Weight 120.202 kg Intake: IV 500 Output: Urine 700 Estimated Blood Loss 25 Other: Voiding Method Urinal Urinal # Voids 4 - Exam patient is awake, comfortable, in no acute distress. Examination of the heart S1 and S2 Examination of the lungs bilateral breath sounds are heard Abdomen is soft nontender obese Examination of lower extremities shows left AKA, right foot dressed. - Labs CBC & Chem 7: 04/06/24 03:28 04/06/24 03:28 Labs: Abnormal Lab Results - Last 24 Hours (Table) 03/31/24 03/31/24 04/01/24 Range/Units 16:34 20:17 05:55 RBC (4.30-5.90) m/uL Hgb (13.0-17.5) gm/dL Hct (39.0-53.0) % Sodium (137-145) mmol/L BUN (9-20) mg/dL Creatinine (0.66-1.25) mg/dL Glucose (74-99) mg/dL POC Glucose (mg/dL) 308 H 271 H 269 H (70-110) mg/dL Calcium (8.4-10.2) mg/dL Alkaline Phosphatase (38-126) U/L C-Reactive Protein (<1.0) mg/dL Total Protein (6.3-8.2) g/dL Albumin (3.5-5.0) g/dL 04/01/24 04/01/24 04/01/24 Range/Units 11:27 16:21 20:25 RBC (4.30-5.90) m/uL Hgb (13.0-17.5) gm/dL Hct (39.0-53.0) % Sodium (137-145) mmol/L BUN (9-20) mg/dL Creatinine (0.66-1.25) mg/dL Glucose (74-99) mg/dL POC Glucose (mg/dL) 359 H 277 H 262 H (70-110) mg/dL Calcium (8.4-10.2) mg/dL Alkaline Phosphatase (38-126) U/L C-Reactive Protein (<1.0) mg/dL Total Protein (6.3-8.2) g/dL Albumin (3.5-5.0) g/dL 04/02/24 04/02/24 04/02/24 Range/Units 05:59 12:24 16:59 RBC (4.30-5.90) m/uL Hgb (13.0-17.5) gm/dL Hct (39.0-53.0) % Sodium (137-145) mmol/L BUN (9-20) mg/dL Creatinine (0.66-1.25) mg/dL Glucose (74-99) mg/dL POC Glucose (mg/dL) 320 H 228 H 270 H (70-110) mg/dL Calcium (8.4-10.2) mg/dL Alkaline Phosphatase (38-126) U/L C-Reactive Protein (<1.0) mg/dL Total Protein (6.3-8.2) g/dL Albumin (3.5-5.0) g/dL 04/02/24 04/03/24 04/03/24 Range/Units 21:12 06:12 11:57 RBC (4.30-5.90) m/uL Hgb (13.0-17.5) gm/dL Hct (39.0-53.0) % Sodium (137-145) mmol/L BUN (9-20) mg/dL Creatinine (0.66-1.25) mg/dL Glucose (74-99) mg/dL POC Glucose (mg/dL) 385 H 247 H 288 H (70-110) mg/dL Calcium (8.4-10.2) mg/dL Alkaline Phosphatase (38-126) U/L C-Reactive Protein (<1.0) mg/dL Total Protein (6.3-8.2) g/dL Albumin (3.5-5.0) g/dL 04/03/24 04/03/24 04/03/24 Range/Units 17:11 17:39 20:25 RBC (4.30-5.90) m/uL Hgb (13.0-17.5) gm/dL Hct (39.0-53.0) % Sodium (137-145) mmol/L BUN (9-20) mg/dL Creatinine (0.66-1.25) mg/dL Glucose (74-99) mg/dL POC Glucose (mg/dL) 392 H 390 H 361 H (70-110) mg/dL Calcium (8.4-10.2) mg/dL Alkaline Phosphatase (38-126) U/L C-Reactive Protein (<1.0) mg/dL Total Protein (6.3-8.2) g/dL Albumin (3.5-5.0) g/dL 04/04/24 04/04/24 04/04/24 Range/Units 06:28 12:05 17:36 RBC (4.30-5.90) m/uL Hgb (13.0-17.5) gm/dL Hct (39.0-53.0) % Sodium (137-145) mmol/L BUN (9-20) mg/dL Creatinine (0.66-1.25) mg/dL Glucose (74-99) mg/dL POC Glucose (mg/dL) 208 H 361 H 309 H (70-110) mg/dL Calcium (8.4-10.2) mg/dL Alkaline Phosphatase (38-126) U/L C-Reactive Protein (<1.0) mg/dL Total Protein (6.3-8.2) g/dL Albumin (3.5-5.0) g/dL 04/04/24 04/04/24 04/05/24 Range/Units 19:54 20:57 05:45 RBC (4.30-5.90) m/uL Hgb (13.0-17.5) gm/dL Hct (39.0-53.0) % Sodium (137-145) mmol/L BUN (9-20) mg/dL Creatinine (0.66-1.25) mg/dL Glucose (74-99) mg/dL POC Glucose (mg/dL) 329 H 398 H 366 H (70-110) mg/dL Calcium (8.4-10.2) mg/dL Alkaline Phosphatase (38-126) U/L C-Reactive Protein (<1.0) mg/dL Total Protein (6.3-8.2) g/dL Albumin (3.5-5.0) g/dL 04/05/24 04/05/24 04/05/24 Range/Units 09:29 11:21 12:48 RBC (4.30-5.90) m/uL Hgb (13.0-17.5) gm/dL Hct (39.0-53.0) % Sodium (137-145) mmol/L BUN (9-20) mg/dL Creatinine (0.66-1.25) mg/dL Glucose (74-99) mg/dL POC Glucose (mg/dL) 339 H 272 H 208 H (70-110) mg/dL Calcium (8.4-10.2) mg/dL Alkaline Phosphatase (38-126) U/L C-Reactive Protein (<1.0) mg/dL Total Protein (6.3-8.2) g/dL Albumin (3.5-5.0) g/dL 04/05/24 04/05/24 04/06/24 Range/Units 16:43 21:02 03:28 RBC 2.51 L (4.30-5.90) m/uL Hgb 7.1 L D (13.0-17.5) gm/dL Hct 22.2 L (39.0-53.0) % Sodium (137-145) mmol/L BUN (9-20) mg/dL Creatinine (0.66-1.25) mg/dL Glucose (74-99) mg/dL POC Glucose (mg/dL) 277 H 313 H (70-110) mg/dL Calcium (8.4-10.2) mg/dL Alkaline Phosphatase (38-126) U/L C-Reactive Protein (<1.0) mg/dL Total Protein (6.3-8.2) g/dL Albumin (3.5-5.0) g/dL 04/06/24 04/06/24 04/06/24 Range/Units 03:28 06:27 11:28 RBC (4.30-5.90) m/uL Hgb (13.0-17.5) gm/dL Hct (39.0-53.0) % Sodium 136 L (137-145) mmol/L BUN 40 H (9-20) mg/dL Creatinine 3.56 H (0.66-1.25) mg/dL Glucose 272 H (74-99) mg/dL POC Glucose (mg/dL) 304 H 281 H (70-110) mg/dL Calcium 7.7 L (8.4-10.2) mg/dL Alkaline Phosphatase 137 H (38-126) U/L C-Reactive Protein 6.6 H (<1.0) mg/dL Total Protein 5.3 L (6.3-8.2) g/dL Albumin 2.3 L (3.5-5.0) g/dL Microbiology - Last 24 Hours (Table) 04/05/24 10:00 Gram Stain - Preliminary Other - Other 04/01/24 09:27 Anaerobic Culture - Final Foot - Right 04/01/24 09:27 Anaerobic Culture - Final Foot - Right Assessment and Plan Assessment: 1. End-stage renal disease maintained on peritoneal dialysis. 2. Right foot wound on antibiotics. ID and vascular surgery following. Status post debridement. 3. Anemia of chronic kidney disease. On Aranesp. 4. Diabetes mellitus. 5. Hypertension with chronic kidney disease. Stable. 6. Chronic kidney disease mineral bone disease. Phosphorus level normal this admission. Will Plan: continue current PD exchanges. Continue with torsemide Continue antibiotics.
[2024-04-06 16:43] LABS: Glucose,Whole Blood 277 mg/dL (70-110)
--- NOTE | 2024-04-06 17:43 | P.PN ---
Progress Note - Text Progress Note Date: 04/06/24 Chief Complaint: Fever Pleasant 58-year-old patient follows with Dr. Harris. Chronic stable medical conditions include CAD, COPD, diabetes, GERD, hyperlipidemia, hypertension, end-stage kidney disease with hemodialysis, obstructive sleep apnea, PAD, left foot BKA with the prosthesis, home oxygen 2.5 L at night. CAD with stent right foot third fourth and fifth toe amputated. Patient is on peritoneal dialysis. Patient follows at the wound care, Dr. Denton but was recently debrided on Tuesday. For about 3 days patient not been feeling well. Decreased appetite. Yesterday spiked a fever of 102.6. Decided to come in. Has a wound on the right foot. Blood cultures drawn in the ER. Did receive vancomycin. at the bedside. Feeling better this morning. Did eat some breakfast. April 01: Patient had a callus at the bottom of the right foot removed by Dr. Denton today. Dressing in place. No further fever. Decreased appetite. Discussed with patient and . On IV Unasyn. Getting his peritoneal dialysis. Diet discussed. Cultures pending-cultures from callus removed today also sent out April 02: Patient vomited x 2. Will give a short course of Reglan. Wound cultures are growing presumptive MRSA. Gram-negative bacilli. Discussed with patient. Getting IV cefepime and IV vancomycin. Changed to full liquid diet April 03: Patient doing well on Reglan. Able to keep his full liquids down. Advance to chopped diet today. Cultures not finalized. Remains on IV cefepime and vancomycin. Patient feels more rested and better. April 04: Today patient's foot noticed to be boggy around very callus was removed. Pus was being extracted. Dr. Denton was informed. He is planning to take the patient down for OR for further I&D. Otherwise patient tolerating a diet. Patient agreed Patient otherwise had no fever. Diet advanced. No n.p.o. after midnight. On IV Unasyn. April 05: Patient was taken to the OR by Dr. Denton today. I&D was carried out. For the infected callus surrounding area. Patient returns with a wound VAC. Spoke to the patient and the . Deep cultures were sent. Continue IV vancomycin and Unasyn as per ID. April 06: Saw the patient this morning. Wound VAC yesterday to be removed as it got clotted. He is pending another 1 today. Pain controlled. Tolerating diet. Antibiotics to continue. ID is awaiting for repeat deep tissue cultures. Will need PICC line for outpatient treatment. Active Medications Acetaminophen (Acetaminophen Tab 325 Mg Tab) 650 mg PO Q6HR PRN PRN Reason: Mild Pain or Fever > 100.5 Last Admin: 04/01/24 20:38 Dose: 650 mg Allopurinol (Allopurinol 100 Mg Tab) 100 mg PO DAILY [facility] Last Admin: 04/06/24 08:52 Dose: 100 mg Amlodipine Besylate (Amlodipine 5 Mg Tab) 5 mg PO BID [facility] Last Admin: 04/06/24 08:52 Dose: 5 mg Aspirin (Aspirin 81 Mg) 81 mg PO HS [facility] Last Admin: 04/05/24 21:29 Dose: 81 mg Atorvastatin Calcium (Atorvastatin 40 Mg Tab) 40 mg PO HS [facility] Last Admin: 04/05/24 21:29 Dose: 40 mg Darbepoetin Landen (Darbepoetin Landen 40 Mcg/0.4 Ml Syringe) 40 mcg SQ Q7D [facility] Last Admin: 03/31/24 13:24 Dose: Not Given Dextrose/Water (Dextrose 50% Syringe 50 Ml) 25 ml IVP PER PROTOCOL PRN; Protocol PRN Reason: Hypoglycemia Dextrose/Water (Dextrose 50% Syringe 50 Ml) 50 ml IVP PER PROTOCOL PRN; Protocol PRN Reason: Hypoglycemia Enoxaparin Sodium (Enoxaparin 40 Mg/0.4 Ml Syringe) 40 mg SQ DAILY [facility] Last Admin: 04/06/24 08:53 Dose: 40 mg Fluoxetine HCl (Fluoxetine Hcl 20 Mg Cap) 40 mg PO BID [facility] Last Admin: 04/06/24 08:53 Dose: 40 mg Gabapentin (Gabapentin 400 Mg Cap) 400 mg PO HS [facility] Last Admin: 04/05/24 21:29 Dose: 400 mg Hydralazine HCl (Hydralazine Hcl 25 Mg Tab) 25 mg PO TID PRN PRN Reason: BP >150 Last Admin: 04/03/24 00:57 Dose: 25 mg Hydromorphone HCl (Hydromorphone 0.5 Mg/0.5 Ml Syringe) 0.5 mg IVP Q6HR PRN PRN Reason: Pain Peritoneal Dialysis Solution (Delflex With 2.5% Dextrose (2,000 Ml)) 50 g in 2,000 mls @ 0 mls/hr INTRAPERIT Q6HR [facility]; Protocol Last Admin: 04/06/24 17:23 Dose: 2,000 mls/hr Ampicillin Sodium/Sulbactam (Sodium 3 gm/ Sodium Chloride) 100 mls @ 200 mls/hr IVPB Q24HR [facility]; Protocol Last Admin: 04/06/24 08:52 Dose: 200 mls/hr Insulin Aspart (Insulin Aspart (Novolog) 100 Unit/Ml Vial) 0 unit SQ ACHS [facility]; Protocol Last Admin: 04/06/24 17:23 Dose: 6 unit Isosorbide Mononitrate (Isosorbide Mononitrate Er 60 Mg Tab.Er.24h) 60 mg PO DAILY [facility] Last Admin: 04/06/24 08:57 Dose: 60 mg Loratadine (Loratadine 10 Mg Tab) 10 mg PO HS [facility] Last Admin: 04/05/24 21:29 Dose: 10 mg Metoprolol Succinate (Metoprolol Succinate (Er) 100 Mg Tab.Er.24h) 100 mg PO DAILY [facility] Last Admin: 04/06/24 08:57 Dose: 100 mg Miscellaneous Information (Vancomycin Iv Per Pharmacy 1 Each Misc) 1 each MISCELLANE DIRECTED PRN; Protocol PRN Reason: Per Protocol Naloxone HCl (Naloxone 0.4 Mg/Ml 1 Ml Vial) 0.2 mg IV Q2M PRN PRN Reason: Opioid Reversal Nitroglycerin (Nitroglycerin Sl Tabs 0.4 Mg Tab) 0.4 mg SUBLINGUAL Q5M PRN PRN Reason: Chest Pain Ondansetron HCl (Ondansetron 4 Mg/2 Ml Vial) 4 mg IVP Q8HR PRN PRN Reason: Nausea And Vomiting Pantoprazole Sodium (Pantoprazole 40 Mg Tablet) 80 mg PO HS [facility] Last Admin: 04/05/24 21:29 Dose: 80 mg Psyllium Hydrophilic Mucilloid (Psyllium Husk 100% 6 Gm Packet) 6 gm PO DAILY [facility] Last Admin: 04/06/24 08:53 Dose: 6 gm Tamsulosin HCl (Tamsulosin 0.4 Mg Cap.Er.24h) 0.4 mg PO DAILY [facility] Last Admin: 04/06/24 08:52 Dose: 0.4 mg Ticagrelor (Ticagrelor 90 Mg Tab) 90 mg PO BID [facility] Last Admin: 04/06/24 09:12 Dose: 90 mg Torsemide (Torsemide 20 Mg Tab) 20 mg PO BID@0900,1600 [facility] Last Admin: 04/06/24 14:47 Dose: 20 mg Social history: Lives with his . Smokes about half a pack a day for many years-recently down to few cigarettes a day. No alcohol. Did use marijuana in the past. Physical examination: VITAL SIGNS: 98, 73, 18, 125 x 70, 95% room air GENERAL: Reclining in bed, comfortable EYES: Pupils equal. Conjunctiva julieta l. HEENT: External appearance of nose and ears normal, oral cavity grossly normal. NECK: JVD not raised; masses not palpable. HEART: First and second heart sounds are normal; no edema. LUNGS:[ Respiratory rate-normal decreased breath sounds. ABDOMEN: Soft, nontender, liver spleen not palpable, no masses palpable. PSYCH: Sleepy but able to answer questions comfortably l MUSCULOSKELETAL: Left BKA. With prosthesis. Right foot second third and fourth toe amputated. Awaiting new wound VAC placement currently dressing in place INVESTIGATIONS, reviewed in the clinical context: April 06: White count 9.2 hemoglobin 7.1 potassium 3.5 BUN 40 creatinine 3.56 Troponin I 0.021, 0.021, 0.021. March 31, 2024: White count 12.1 hemoglobin 8.9 platelets 264 sodium 134 potassium 3.9 BUN 53 creatinine 2.67 EKG tracing personally reviewed by me-normal sinus rhythm. Poor R wave progression. Chest x-ray film personally reviewed by me-some cardiomegaly. Some venous prominence Assessment and plan: -Sepsis secondary to right foot infection with chronic wound that is being followed at the wound care center. Is followed by Dr. Denton from vascular.: Wound cultures: Proteus vulgaris, Klebsiella oxytoca, MRSA Blood cultures done. IV Unasyn per ID, vancomycin -Acute on chronic right foot wound which is being followed at wound care center., From underlying PAD Dr. Denton from vascular-callus on the foot of her right removed on April 01. Tissue sent for culture New pus draining around the site of the infected callus removed:-Patient taken back to the OR for further debridement on April [address] Denton.. Repeat deep tissue cultures pending wound VAC got clotted yesterday. Pending another wound VAC placement today. On IV vancomycin IV Unasyn -Chronic congestive heart failure exacerbation from systolic dysfunction EF 45%: Demadex -End-stage kidney disease on peritoneal dialysis Nephrology following -Anemia of chronic kidney disease Aranesp -Essential hypertension Toprol-XL 100 mg a day. Amlodipine 5 mg twice daily. Hydralazine-as needed -Diabetes mellitus type 2, chronically insulin Follow Accu-Cheks with sliding scale insulin. -BPH Flomax -Hyperlipidemia Lipitor 40mg nightly -Obesity BMI 38 Weight loss measures -Depression anxiety Prozac 40 mg twice daily -Diabetic peripheral neuropathy Neurontin 400 mg nightly -COPD in a current smoker inhalers -Chronic nicotine dependence cigarette smoker. Currently down to about 2 cigarettes a day Nicotine patch -Left below-knee amputation with a prosthesis. Right foot second third and fourth toe amputation. -Full code Pending repeat deep wound cultures. Will have wound VAC replaced. Antibiotics to continue. Discussed. Past Medical History Past Medical History: Coronary Artery Disease (CAD), Heart Failure, COPD, Diabetes Mellitus, Eye Disorder, GERD/Reflux, Hyperlipidemia, Hypertension, Myocardial Infarction (DE), Osteoarthritis (OA), Renal Disease, Respiratory Disorder, Sleep Apnea/CPAP/BIPAP, Vascular Disorder Additional Past Medical History / Comment(s): Poor circulation in hands and legs/feet. 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 does not wear cpap Last Myocardial Infarction Date:: 2014 History of Any Multi-Drug Resistant Organisms: MRSA Date of last positivie culture/infection: approx 2016 MDRO Source:: right foot Past Surgical History: Heart Catheterization With Stent, Hernia Repair, Tonsillectomy Additional Past Surgical History / Comment(s): Right foot 3rd and 4th AND 5TH toes and area of foot amputated, cyst on scrotum removed. partial amp lt foot but had non healing wound which resulted in lt bka. matilde cataracts removed-has lens implants. x3 rt inguinal hernia sx and an umb hernia repair. BELOW KNEE AMPUTATION , COLONOSCOPY Stent LADx1 03/09/2024-(R) Groin manual pull Past Anesthesia/Blood Transfusion Reactions: No Reported Reaction Additional Past Anesthesia/Blood Transfusion Reaction / Comment(s): States he was in the ICU after his surgery on his toes, but does not know why. Date of Last Stent Placement:: 05/2015 APPROX Smoking Status: Current some day smoker Additional Past Alcohol Use History / Comment(s): few ciagarettets a dayt
[2024-04-06] MEDS: HYDROmorphone 0.5 MG/0.5 ML SYRINGE IVP PRN (20:33)
[2024-04-06] MEDS: ONDANSETRON 4 MG/2 ML VIAL IVP PRN (20:38)
[2024-04-06 20:52] LABS: Glucose,Whole Blood 300 mg/dL (70-110)
--- NOTE | 2024-04-06 22:07 | PN ---
PROGRESS NOTE Mr. Gardiner has an infected wound, right foot big toe. The patient had an extensive debridement of the right foot big toe. The patient is on IV antibiotic under Infectious Disease. The patient was put on nonweightbearing. The patient has a wound VAC which is started again and the patient will need a PICC line for long-term antibiotic. History of chronic renal failure, on peritoneal dialysis. MMODL / IJN: [id number] /
[2024-04-07 06:00] LABS: Glucose,Whole Blood 248 mg/dL (70-110)
[2024-04-07] MEDS: VANCOMYCIN 1,750 MG in SODIUM CHLORIDE 0.9% 500 ML 500 ML IVPB ONE (11:50)
[2024-04-07 12:09] LABS: Glucose,Whole Blood 281 mg/dL (70-110)
--- NOTE | 2024-04-07 12:17 | P.PN ---
Subjective patient is seen for follow-up for end-stage renal disease. Maintained on peritoneal dialysis. Status post repeat I&D of right foot wound on 04/05/2024 No issues with peritoneal dialysis. Objective - Vital Signs Vital signs: Vital Signs Temp 97.7 F 04/07/24 07:10 Pulse 68 04/07/24 07:10 Resp 17 04/07/24 07:10 BP 153/77 04/07/24 07:10 Pulse Ox 96 04/07/24 07:10 FiO2 Intake & Output 04/06/24 04/07/24 04/07/24 18:59 06:59 18:59 Output Total 1600 1350 Balance -1600 -1350 Output: Urine 1600 1350 - Exam patient is sleeping but arousable comfortable, in no acute distress. Examination of the heart S1 and S2 Examination of the lungs bilateral breath sounds are heard Abdomen is soft nontender obese Examination of lower extremities shows left AKA, right foot dressed. - Labs CBC & Chem 7: 04/06/24 03:28 04/06/24 03:28 Labs: Abnormal Lab Results - Last 24 Hours (Table) 03/31/24 03/31/24 04/01/24 Range/Units 16:34 20:17 05:55 POC Glucose (mg/dL) 308 H 271 H 269 H (70-110) mg/dL 04/01/24 04/01/24 04/01/24 Range/Units 11:27 16:21 20:25 POC Glucose (mg/dL) 359 H 277 H 262 H (70-110) mg/dL 04/02/24 04/02/24 04/02/24 Range/Units 05:59 12:24 16:59 POC Glucose (mg/dL) 320 H 228 H 270 H (70-110) mg/dL 04/02/24 04/03/24 04/03/24 Range/Units 21:12 06:12 11:57 POC Glucose (mg/dL) 385 H 247 H 288 H (70-110) mg/dL 04/03/24 04/03/24 04/03/24 Range/Units 17:11 17:39 20:25 POC Glucose (mg/dL) 392 H 390 H 361 H (70-110) mg/dL 04/04/24 04/04/24 04/04/24 Range/Units 06:28 12:05 17:36 POC Glucose (mg/dL) 208 H 361 H 309 H (70-110) mg/dL 04/04/24 04/04/24 04/05/24 Range/Units 19:54 20:57 05:45 POC Glucose (mg/dL) 329 H 398 H 366 H (70-110) mg/dL 04/05/24 04/05/24 04/05/24 Range/Units 09:29 11:21 12:48 POC Glucose (mg/dL) 339 H 272 H 208 H (70-110) mg/dL 04/05/24 04/05/24 04/06/24 Range/Units 16:43 21:02 06:27 POC Glucose (mg/dL) 277 H 313 H 304 H (70-110) mg/dL 04/06/24 04/06/24 04/06/24 Range/Units 11:28 16:41 20:43 POC Glucose (mg/dL) 281 H 277 H 300 H (70-110) mg/dL 04/07/24 04/07/24 Range/Units 05:59 12:07 POC Glucose (mg/dL) 248 H 281 H (70-110) mg/dL Microbiology - Last 24 Hours (Table) 04/05/24 10:00 Gram Stain - Preliminary Other - Other Tissue Culture - Preliminary Gram Neg Bacilli Assessment and Plan Assessment: 1. End-stage renal disease maintained on peritoneal dialysis. 2. Right foot wound on antibiotics. ID and vascular surgery following. Status post debridement x2. 3. Anemia of chronic kidney disease. On Aranesp. 4. Diabetes mellitus. 5. Hypertension with chronic kidney disease. Stable. 6. Chronic kidney disease mineral bone disease. Phosphorus level normal this admission. Will Plan: continue current PD exchanges. Continue with torsemide Continue antibiotics.
--- NOTE | 2024-04-07 13:26 | P.PN ---
Subjective Progress Note Date: 04/07/24 Principal diagnosis: Reason for follow-up is right diabetic foot infected callus infection, MRSA Patient is a 58-year-old male with multiple comorbidities presented to hospital with a fever concerning for infected callus on the right foot in this patient who is status post bedside debridement of the infected callus and culture by vascular surgeon. Patient did have OR drainage of the abscess on 04/05/2024 On today's evaluation that is 04/07/2024, Patient is afebrile this morning patient denies having any chest pain shortness of breath or cough, the patient is currently on room air, patient denies any abdominal pain no diarrhea no nausea no vomiting, denies pain to the right foot wound. Patient did have vancomycin enema 17.8 repeat right foot wound culture currently growing gram-negative bacilli initial culture with Klebsiella Proteus and MRSA Objective - Vital Signs Vital signs: Vital Signs Temp 97.7 F 04/07/24 07:10 Pulse 68 04/07/24 07:10 Resp 17 04/07/24 07:10 BP 153/77 04/07/24 07:10 Pulse Ox 96 04/07/24 07:10 FiO2 Intake & Output 04/06/24 04/07/24 04/07/24 18:59 06:59 18:59 Output Total 1600 1350 Balance -1600 -1350 Output: Urine 1600 1350 - Exam GENERAL DESCRIPTION: Middle-age male up in bed in no distress RESPIRATORY SYSTEM: Unlabored breathing , decreased breath sounds at bases HEART: S1 S2 regular rate and rhythm , ABDOMEN: Soft , no tenderness EXTREMITIES: Right foot currently dressed no drainage - Labs CBC & Chem 7: 04/06/24 03:28 04/06/24 03:28 Labs: Abnormal Lab Results - Last 24 Hours (Table) 03/31/24 03/31/24 04/01/24 Range/Units 16:34 20:17 05:55 POC Glucose (mg/dL) 308 H 271 H 269 H (70-110) mg/dL 04/01/24 04/01/24 04/01/24 Range/Units 11:27 16:21 20:25 POC Glucose (mg/dL) 359 H 277 H 262 H (70-110) mg/dL 04/02/24 04/02/24 04/02/24 Range/Units 05:59 12:24 16:59 POC Glucose (mg/dL) 320 H 228 H 270 H (70-110) mg/dL 04/02/24 04/03/24 04/03/24 Range/Units 21:12 06:12 11:57 POC Glucose (mg/dL) 385 H 247 H 288 H (70-110) mg/dL 04/03/24 04/03/24 04/03/24 Range/Units 17:11 17:39 20:25 POC Glucose (mg/dL) 392 H 390 H 361 H (70-110) mg/dL 04/04/24 04/04/24 04/04/24 Range/Units 06:28 12:05 17:36 POC Glucose (mg/dL) 208 H 361 H 309 H (70-110) mg/dL 04/04/24 04/04/24 04/05/24 Range/Units 19:54 20:57 05:45 POC Glucose (mg/dL) 329 H 398 H 366 H (70-110) mg/dL 04/05/24 04/05/24 04/05/24 Range/Units 09:29 11:21 12:48 POC Glucose (mg/dL) 339 H 272 H 208 H (70-110) mg/dL 04/05/24 04/05/24 04/06/24 Range/Units 16:43 21:02 06:27 POC Glucose (mg/dL) 277 H 313 H 304 H (70-110) mg/dL 04/06/24 04/06/24 04/06/24 Range/Units 11:28 16:41 20:43 POC Glucose (mg/dL) 281 H 277 H 300 H (70-110) mg/dL 04/07/24 04/07/24 Range/Units 05:59 12:07 POC Glucose (mg/dL) 248 H 281 H (70-110) mg/dL Microbiology - Last 24 Hours (Table) 04/05/24 10:00 Gram Stain - Preliminary Other - Other Tissue Culture - Preliminary Gram Neg Bacilli Assessment and Plan (1) Sepsis Current Visit: Yes Status: Acute Code(s): A41.9 - SEPSIS, UNSPECIFIED ORGANISM SNOMED Code(s): 94359415 (2) Abscess or cellulitis of foot Current Visit: No Status: Acute Code(s): L03.119 - CELLULITIS OF UNSPECIFIED PART OF LIMB; L02.619 - CUTANEOUS ABSCESS OF UNSPECIFIED FOOT SNOMED Code(s): 15930345 (3) Diabetic foot ulcer associated with type 2 diabetes mellitus Current Visit: No Status: Acute Code(s): E11.621 - TYPE 2 DIABETES MELLITUS WITH FOOT ULCER SNOMED Code(s): 6284897319373 Plan: 1patient presented hospital with sepsis in this patient who did have fever tachycardia elevated white count source likely right diabetic foot infected callus and cellulitis and concerning for possible abscess we will need to cover for the polymicrobial lindsay associated with diabetic foot infection 2-patient is status post vascular surgery evaluation and debridement of infected callus and drainage, cultures currently growing MRSA Proteus and Klebsiella 3patient did have repeat surgical drainage cultures are currently growing gram- negative bacilli that is sensitive pending 4patient is currently waiting for PICC line placement we will continue the vancomycin and Unasyn and monitor clinical course closely Dictation was produced using [employer] dictation software. please excuse any grammatical, word or spelling errors. Time with Patient: Less than 30
[2024-04-07 16:56] LABS: Glucose,Whole Blood 291 mg/dL (70-110)
--- NOTE | 2024-04-07 17:02 | P.PN ---
Progress Note - Text Progress Note Date: 04/07/24 Chief Complaint: Fever Pleasant 58-year-old patient follows with Dr. Harris. Chronic stable medical conditions include CAD, COPD, diabetes, GERD, hyperlipidemia, hypertension, end-stage kidney disease with hemodialysis, obstructive sleep apnea, PAD, left foot BKA with the prosthesis, home oxygen 2.5 L at night. CAD with stent right foot third fourth and fifth toe amputated. Patient is on peritoneal dialysis. Patient follows at the wound care, Dr. Denton but was recently debrided on Tuesday. For about 3 days patient not been feeling well. Decreased appetite. Yesterday spiked a fever of 102.6. Decided to come in. Has a wound on the right foot. Blood cultures drawn in the ER. Did receive vancomycin. at the bedside. Feeling better this morning. Did eat some breakfast. April 01: Patient had a callus at the bottom of the right foot removed by Dr. Denton today. Dressing in place. No further fever. Decreased appetite. Discussed with patient and . On IV Unasyn. Getting his peritoneal dialysis. Diet discussed. Cultures pending-cultures from callus removed today also sent out April 02: Patient vomited x 2. Will give a short course of Reglan. Wound cultures are growing presumptive MRSA. Gram-negative bacilli. Discussed with patient. Getting IV cefepime and IV vancomycin. Changed to full liquid diet April 03: Patient doing well on Reglan. Able to keep his full liquids down. Advance to chopped diet today. Cultures not finalized. Remains on IV cefepime and vancomycin. Patient feels more rested and better. April 04: Today patient's foot noticed to be boggy around very callus was removed. Pus was being extracted. Dr. Denton was informed. He is planning to take the patient down for OR for further I&D. Otherwise patient tolerating a diet. Patient agreed Patient otherwise had no fever. Diet advanced. No n.p.o. after midnight. On IV Unasyn. April 05: Patient was taken to the OR by Dr. Denton today. I&D was carried out. For the infected callus surrounding area. Patient returns with a wound VAC. Spoke to the patient and the . Deep cultures were sent. Continue IV vancomycin and Unasyn as per ID. April 06: Saw the patient this morning. Wound VAC yesterday to be removed as it got clotted. He is pending another 1 today. Pain controlled. Tolerating diet. Antibiotics to continue. ID is awaiting for repeat deep tissue cultures. Will need PICC line for outpatient treatment. April 07: Eating well. Some pain present. Being visited by his and environmental field professional. On antibiotics. Repeat deep tissue cultures pending. PICC line on Tuesday. Active Medications Acetaminophen (Acetaminophen Tab 325 Mg Tab) 650 mg PO Q6HR PRN PRN Reason: Mild Pain or Fever > 100.5 Last Admin: 04/01/24 20:38 Dose: 650 mg Allopurinol (Allopurinol 100 Mg Tab) 100 mg PO DAILY [facility] Last Admin: 04/07/24 08:20 Dose: 100 mg Amlodipine Besylate (Amlodipine 5 Mg Tab) 5 mg PO BID [facility] Last Admin: 04/07/24 08:20 Dose: 5 mg Aspirin (Aspirin 81 Mg) 81 mg PO [facility] Last Admin: 04/06/24 20:32 Dose: 81 mg Atorvastatin Calcium (Atorvastatin 40 Mg Tab) 40 mg PO HS [facility] Last Admin: 04/06/24 20:32 Dose: 40 mg Darbepoetin Landen (Darbepoetin Landen 40 Mcg/0.4 Ml Syringe) 40 mcg SQ Q7D [facility] Last Admin: 04/07/24 11:49 Dose: 40 mcg Dextrose/Water (Dextrose 50% Syringe 50 Ml) 25 ml IVP PER PROTOCOL PRN; Protocol PRN Reason: Hypoglycemia Dextrose/Water (Dextrose 50% Syringe 50 Ml) 50 ml IVP PER PROTOCOL PRN; Protocol PRN Reason: Hypoglycemia Enoxaparin Sodium (Enoxaparin 40 Mg/0.4 Ml Syringe) 40 mg SQ DAILY [facility] Last Admin: 04/07/24 08:20 Dose: 40 mg Fluoxetine HCl (Fluoxetine Hcl 20 Mg Cap) 40 mg PO BID [facility] Last Admin: 04/07/24 08:20 Dose: 40 mg Gabapentin (Gabapentin 400 Mg Cap) 400 mg PO [facility] Last Admin: 04/06/24 20:32 Dose: 400 mg Hydralazine HCl (Hydralazine Hcl 25 Mg Tab) 25 mg PO TID PRN PRN Reason: BP >150 Last Admin: 04/03/24 00:57 Dose: 25 mg Hydromorphone HCl (Hydromorphone 0.5 Mg/0.5 Ml Syringe) 0.5 mg IVP Q4HR PRN PRN Reason: Pain Last Admin: 04/07/24 14:53 Dose: 0.5 mg Peritoneal Dialysis Solution (Delflex With 2.5% Dextrose (2,000 Ml)) 50 g in 2,000 mls @ 0 mls/hr INTRAPERIT Q6HR [facility]; Protocol Last Admin: 04/07/24 13:02 Dose: 2,000 mls/hr Ampicillin Sodium/Sulbactam (Sodium 3 gm/ Sodium Chloride) 100 mls @ 200 mls/hr IVPB Q24HR [facility]; Protocol Last Admin: 04/07/24 08:20 Dose: 200 mls/hr Insulin Aspart (Insulin Aspart (Novolog) 100 Unit/Ml Vial) 0 unit SQ ACHS [facility]; Protocol Last Admin: 04/07/24 12:16 Dose: 6 unit Isosorbide Mononitrate (Isosorbide Mononitrate Er 60 Mg Tab.Er.24h) 60 mg PO DAILY [facility] Last Admin: 04/07/24 08:20 Dose: 60 mg Loratadine (Loratadine 10 Mg Tab) 10 mg PO [facility] Last Admin: 04/06/24 20:32 Dose: 10 mg Metoprolol Succinate (Metoprolol Succinate (Er) 100 Mg Tab.Er.24h) 100 mg PO DAILY [facility] Last Admin: 04/07/24 08:20 Dose: 100 mg Miscellaneous Information (Vancomycin Iv [place] 1 [place] [facility] [place] 1 each MISCELLANE DIRECTED PRN; Protocol PRN Reason: Per Protocol Naloxone HCl (Naloxone 0.4 Mg/Ml 1 Ml Vial) 0.2 mg IV Q2M PRN PRN Reason: Opioid Reversal Nitroglycerin (Nitroglycerin Sl Tabs 0.4 Mg Tab) 0.4 mg SUBLINGUAL Q5M PRN PRN Reason: Chest Pain Ondansetron HCl (Ondansetron 4 Mg/2 Ml Vial) 4 mg IVP Q8HR PRN PRN Reason: Nausea And Vomiting Last Admin: 04/06/24 20:38 Dose: 4 mg Pantoprazole Sodium (Pantoprazole 40 Mg Tablet) 80 mg PO HS [facility] Last Admin: 04/06/24 20:32 Dose: 80 mg Psyllium Hydrophilic Mucilloid (Psyllium Husk 100% 6 Gm Packet) 6 gm PO DAILY [facility] Last Admin: 04/07/24 08:27 Dose: Not Given Tamsulosin HCl (Tamsulosin 0.4 Mg Cap.Er.24h) 0.4 mg PO DAILY [facility] Last Admin: 04/07/24 08:20 Dose: 0.4 mg Ticagrelor (Ticagrelor 90 Mg Tab) 90 mg PO BID [facility] Last Admin: 04/07/24 08:20 Dose: 90 mg Torsemide (Torsemide 20 Mg Tab) 20 mg PO BID@0900,1600 [facility] Last Admin: 04/07/24 14:53 Dose: 20 mg Social history: Lives with his . Smokes about half a pack a day for many years-recently down to few cigarettes a day. No alcohol. Did use marijuana in the past. Physical examination: VITAL SIGNS: 98.2, 71, 16, 144/85, 99% on 2 L GENERAL: Sitting p in bed comfortable EYES: Pupils equal. Conjunctiva julieta l. HEENT: External appearance of nose and ears normal, oral cavity grossly normal. NECK: JVD not raised; masses not palpable. HEART: First and second heart sounds are normal; no edema. LUNGS:[ Respiratory rate-normal decreased breath sounds. ABDOMEN: Soft, nontender, liver spleen not palpable, no masses palpable. PSYCH: Sleepy but able to answer questions comfortably l MUSCULOSKELETAL: Left BKA. With prosthesis. Right foot second third and fourth toe amputated. Awaiting new wound VAC placement currently dressing in place INVESTIGATIONS, reviewed in the clinical context: April 06: White count 9.2 hemoglobin 7.1 potassium 3.5 BUN 40 creatinine 3.56 Troponin I 0.021, 0.021, 0.021. March 31, 2024: White count 12.1 hemoglobin 8.9 platelets 264 sodium 134 potassium 3.9 BUN 53 creatinine 2.67 EKG tracing personally reviewed by me-normal sinus rhythm. Poor R wave progression. Chest x-ray film personally reviewed by me-some cardiomegaly. Some venous prominence Assessment and plan: -Sepsis secondary to right foot infection with chronic wound that is being followed at the wound care center. Is followed by Dr. Denton from vascular.: Wound cultures: Proteus vulgaris, Klebsiella oxytoca, MRSA Blood cultures done. IV Unasyn per ID, vancomycin -Acute on chronic right foot wound which is being followed at wound care center., From underlying PAD Dr. Denton from vascular-callus on the foot of her right removed on April 01. Tissue sent for culture New pus draining around the site of the infected callus removed:-Patient taken back to the OR for further debridement on April [address] Denton.. Repeat deep tissue cultures pending Wound VAC On IV vancomycin IV Unasyn -Chronic congestive heart failure exacerbation from systolic dysfunction EF 45%: Demadex -End-stage kidney disease on peritoneal dialysis Nephrology following -Anemia of chronic kidney disease Aranesp -Essential hypertension Toprol-XL 100 mg a day. Amlodipine 5 mg twice daily. Hydralazine-as needed -Diabetes mellitus type 2, chronically insulin Follow Accu-Cheks with sliding scale insulin. Schedule NovoLog 70/30 with sliding scale -BPH Flomax -Hyperlipidemia Lipitor 40mg nightly -Obesity BMI 38 Weight loss measures -Depression anxiety Prozac 40 mg twice daily -Diabetic peripheral neuropathy Neurontin 400 mg nightly -COPD in a current smoker inhalers -Chronic nicotine dependence cigarette smoker. Currently down to about 2 cigarettes a day Nicotine patch -Left below-knee amputation with a prosthesis. Right foot second third and fourth toe amputation. -Full code Schedule NovoLog 70/30 with sliding scale. Other medication to continue. Discussed. Past Medical History Past Medical History: Coronary Artery Disease (CAD), Heart Failure, COPD, Diabetes Mellitus, Eye Disorder, GERD/Reflux, Hyperlipidemia, Hypertension, Myocardial Infarction (MD), Osteoarthritis (OA), Renal Disease, Respiratory Disorder, Sleep Apnea/CPAP/BIPAP, Vascular Disorder Additional Past Medical History / Comment(s): Poor circulation in hands and legs/feet. 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 does not wear cpap Last Myocardial Infarction Date:: 2014 History of Any Multi-Drug Resistant Organisms: MRSA Date of last positivie culture/infection: approx 2015 MDRO Source:: right foot Past Surgical History: Heart Catheterization With Stent, Hernia Repair, Tonsillectomy Additional Past Surgical History / Comment(s): Right foot 3rd and 4th AND 5TH toes and area of foot amputated, cyst on scrotum removed. partial amp lt foot but had non healing wound which resulted in lt bka. matilde cataracts removed-has lens implants. x3 rt inguinal hernia sx and an umb hernia repair. BELOW KNEE AMPUTATION , COLONOSCOPY Stent LADx1 03/09/2024-(R) Groin manual pull Past Anesthesia/Blood Transfusion Reactions: No Reported Reaction Additional Past Anesthesia/Blood Transfusion Reaction / Comment(s): States he was in the ICU after his surgery on his toes, but does not know why. Date of Last Stent Placement:: 05/2015 APPROX Smoking Status: Current some day smoker Additional Past Alcohol Use History / Comment(s): few ciagarettets a dayt
[2024-04-07] MEDS: INSULN ASP PRT/INSULIN ASPART 100 UNIT/ML 10 ML VIAL SQ SCH (17:35)
[2024-04-07 21:14] LABS: Glucose,Whole Blood 219 mg/dL (70-110)
[2024-04-08 06:04] LABS: Glucose,Whole Blood 173 mg/dL (70-110)
[2024-04-08 11:24] LABS: Glucose,Whole Blood 224 mg/dL (70-110)
--- NOTE | 2024-04-08 11:38 | P.PN ---
Subjective patient is seen for follow-up for end-stage renal disease. Maintained on peritoneal dialysis. Status post repeat I&D of right foot wound on 04/05/2024 No issues with peritoneal dialysis. Objective - Vital Signs Vital signs: Vital Signs Temp 98.1 F 04/08/24 07:37 Pulse 77 04/08/24 07:37 Resp 17 04/08/24 07:37 BP 160/77 04/08/24 07:37 Pulse Ox 97 04/08/24 07:37 FiO2 Intake & Output 04/07/24 04/08/24 04/08/24 18:59 06:59 18:59 Other: # Voids 3 2 - Exam patient is awake, comfortable, in no acute distress. Examination of the heart S1 and S2 Examination of the lungs bilateral breath sounds are heard Abdomen is soft nontender obese Examination of lower extremities shows left AKA, right foot dressed. - Labs CBC & Chem 7: 04/06/24 03:28 04/06/24 03:28 Labs: Abnormal Lab Results - Last 24 Hours (Table) 04/07/24 04/07/24 04/07/24 Range/Units 12:07 16:54 21:12 POC Glucose (mg/dL) 281 H 291 H 219 H (70-110) mg/dL 04/08/24 04/08/24 Range/Units 06:02 11:22 POC Glucose (mg/dL) 173 H 224 H (70-110) mg/dL Microbiology - Last 24 Hours (Table) 04/05/24 10:00 Anaerobic Culture - Preliminary Other - Other 04/05/24 10:00 Gram Stain - Final Other - Other Tissue Culture - Final Proteus vulgaris group Assessment and Plan Assessment: 1. End-stage renal disease maintained on peritoneal dialysis. 2. Right foot wound on antibiotics. ID and vascular surgery following. Status post debridement x2. 3. Anemia of chronic kidney disease. On Aranesp. 4. Diabetes mellitus. 5. Hypertension with chronic kidney disease. Stable. 6. Chronic kidney disease mineral bone disease. Phosphorus level normal this admission. Will Plan: continue current PD exchanges. Continue with torsemide Continue antibiotics.
[2024-04-08] MEDS: INSULN ASP PRT/INSULIN ASPART 100 UNIT/ML 10 ML VIAL SQ SCH (12:45)
[2024-04-08 16:38] LABS: Glucose,Whole Blood 214 mg/dL (70-110)
--- NOTE | 2024-04-08 20:36 | P.PN ---
Progress Note - Text Progress Note Date: 04/08/24 Chief Complaint: Fever Pleasant 58-year-old patient follows with Dr. Harris. Chronic stable medical conditions include CAD, COPD, diabetes, GERD, hyperlipidemia, hypertension, end-stage kidney disease with hemodialysis, obstructive sleep apnea, PAD, left foot BKA with the prosthesis, home oxygen 2.5 L at night. CAD with stent right foot third fourth and fifth toe amputated. Patient is on peritoneal dialysis. Patient follows at the wound care, Dr. Denton but was recently debrided on Tuesday. For about 3 days patient not been feeling well. Decreased appetite. Yesterday spiked a fever of 102.6. Decided to come in. Has a wound on the right foot. Blood cultures drawn in the ER. Did receive vancomycin. at the bedside. Feeling better this morning. Did eat some breakfast. April 01: Patient had a callus at the bottom of the right foot removed by Dr. Denton today. Dressing in place. No further fever. Decreased appetite. Discussed with patient and . On IV Unasyn. Getting his peritoneal dialysis. Diet discussed. Cultures pending-cultures from callus removed today also sent out April 02: Patient vomited x 2. Will give a short course of Reglan. Wound cultures are growing presumptive MRSA. Gram-negative bacilli. Discussed with patient. Getting IV cefepime and IV vancomycin. Changed to full liquid diet April 03: Patient doing well on Reglan. Able to keep his full liquids down. Advance to chopped diet today. Cultures not finalized. Remains on IV cefepime and vancomycin. Patient feels more rested and better. April 04: Today patient's foot noticed to be boggy around very callus was removed. Pus was being extracted. Dr. Denton was informed. He is planning to take the patient down for OR for further I&D. Otherwise patient tolerating a diet. Patient agreed Patient otherwise had no fever. Diet advanced. No n.p.o. after midnight. On IV Unasyn. April 05: Patient was taken to the OR by Dr. Denton today. I&D was carried out. For the infected callus surrounding area. Patient returns with a wound VAC. Spoke to the patient and the . Deep cultures were sent. Continue IV vancomycin and Unasyn as per ID. April 06: Saw the patient this morning. Wound VAC yesterday to be removed as it got clotted. He is pending another 1 today. Pain controlled. Tolerating diet. Antibiotics to continue. ID is awaiting for repeat deep tissue cultures. Will need PICC line for outpatient treatment. April 07: Eating well. Some pain present. Being visited by his and subject scientific research. On antibiotics. Repeat deep tissue cultures pending. PICC line on Tuesday. April 08: Some pain at the operative site. Wound VAC in place. Getting antibiotics. Cultures have started to show Proteus vulgaris. Eating well. Active Medications Acetaminophen (Acetaminophen Tab 325 Mg Tab) 650 mg PO Q6HR PRN PRN Reason: Mild Pain or Fever > 100.5 Last Admin: 04/01/24 20:38 Dose: 650 mg Allopurinol (Allopurinol 100 Mg Tab) 100 mg PO DAILY [facility] Last Admin: 04/08/24 09:11 Dose: 100 mg Amlodipine Besylate (Amlodipine 5 Mg Tab) 5 mg PO BID [facility] Last Admin: 04/08/24 09:11 Dose: 5 mg Aspirin (Aspirin 81 Mg) 81 mg PO HS [facility] Last Admin: 04/07/24 21:34 Dose: 81 mg Atorvastatin Calcium (Atorvastatin 40 Mg Tab) 40 mg PO HS [facility] Last Admin: 04/07/24 21:34 Dose: 40 mg Darbepoetin Landen (Darbepoetin Landen 40 Mcg/0.4 Ml Syringe) 40 mcg SQ Q7D [facility] Last Admin: 04/07/24 11:49 Dose: 40 mcg Dextrose/Water (Dextrose 50% Syringe 50 Ml) 25 ml IVP PER PROTOCOL PRN; Protocol PRN Reason: Hypoglycemia Dextrose/Water (Dextrose 50% Syringe 50 Ml) 50 ml IVP PER PROTOCOL PRN; Protocol PRN Reason: Hypoglycemia Enoxaparin Sodium (Enoxaparin 40 Mg/0.4 Ml Syringe) 40 mg SQ DAILY [facility] Last Admin: 04/08/24 09:11 Dose: 40 mg Fluoxetine HCl (Fluoxetine Hcl 20 Mg Cap) 40 mg PO BID [facility] Last Admin: 04/08/24 09:11 Dose: 40 mg Gabapentin (Gabapentin 400 Mg Cap) 400 mg PO HS [facility] Last Admin: 04/07/24 21:34 Dose: 400 mg Hydralazine HCl (Hydralazine Hcl 25 Mg Tab) 25 mg PO TID PRN PRN Reason: BP >150 Last Admin: 04/03/24 00:57 Dose: 25 mg Hydromorphone HCl (Hydromorphone 0.5 Mg/0.5 Ml Syringe) 0.5 mg IVP Q4HR PRN PRN Reason: Pain Last Admin: 04/08/24 18:13 Dose: 0.5 mg Peritoneal Dialysis Solution (Delflex With 2.5% Dextrose (2,000 Ml)) 50 g in 2,000 mls @ 0 mls/hr INTRAPERIT Q6HR [facility]; Protocol Last Admin: 04/08/24 18:15 Dose: 2,000 mls/hr Ampicillin Sodium/Sulbactam (Sodium 3 gm/ Sodium Chloride) 100 mls @ 200 mls/hr IVPB Q24HR [facility]; Protocol Last Admin: 04/08/24 09:11 Dose: 200 mls/hr Insulin Aspart (Insulin Aspart (Novolog) 100 Unit/Ml Vial) 0 unit SQ ACHS [facility]; Protocol Last Admin: 04/08/24 17:34 Dose: 4 unit Insulin Aspart (Insuln Asp Prt/Insulin Aspart 100 Unit/Ml 10 Ml Vial) 14 unit SQ AC-BID [facility] Last Admin: 04/08/24 17:34 Dose: 14 unit Insulin Aspart (Insuln Asp Prt/Insulin Aspart 100 Unit/Ml 10 Ml Vial) 6 unit SQ AC-LUNCH [facility] Last Admin: 04/08/24 12:45 Dose: 6 unit Isosorbide Mononitrate (Isosorbide Mononitrate Er 60 Mg Tab.Er.24h) 60 mg PO DAILY [facility] Last Admin: 04/08/24 09:11 Dose: 60 mg Loratadine (Loratadine 10 Mg Tab) 10 mg PO HS [facility] Last Admin: 04/07/24 21:34 Dose: 10 mg Metoprolol Succinate (Metoprolol Succinate (Er) 100 Mg Tab.Er.24h) 100 mg PO DAILY [facility] Last Admin: 04/08/24 09:13 Dose: 100 mg Miscellaneous Information (Vancom[facility] 1 each MISCELLANE DIRECTED PRN; Protocol PRN Reason: Per Protocol Naloxone HCl (Naloxone 0.4 Mg/Ml 1 Ml Vial) 0.2 mg IV Q2M PRN PRN Reason: Opioid Reversal Nitroglycerin (Nitroglycerin Sl Tabs 0.4 Mg Tab) 0.4 mg SUBLINGUAL Q5M PRN PRN Reason: Chest Pain Ondansetron HCl (Ondansetron 4 Mg/2 Ml Vial) 4 mg IVP Q8HR PRN PRN Reason: Nausea And Vomiting Last Admin: 04/08/24 12:58 Dose: 4 mg Pantoprazole Sodium (Pantoprazole 40 Mg Tablet) 80 mg PO HS [facility] Last Admin: 04/07/24 21:35 Dose: 80 mg Psyllium Hydrophilic Mucilloid (Psyllium Husk 100% 6 Gm Packet) 6 gm PO DAILY [facility] Last Admin: 04/08/24 09:13 Dose: Not Given Tamsulosin HCl (Tamsulosin 0.4 Mg Cap.Er.24h) 0.4 mg PO DAILY [facility] Last Admin: 04/08/24 09:11 Dose: 0.4 mg Ticagrelor (Ticagrelor 90 Mg Tab) 90 mg PO BID [facility] Last Admin: 04/08/24 09:13 Dose: 90 mg Torsemide (Torsemide 20 Mg Tab) 20 mg PO BID@0900,1600 [facility] Last Admin: 04/08/24 17:34 Dose: 20 mg Social history: Lives with his . Smokes about half a pack a day for many years-recently down to few cigarettes a day. No alcohol. Did use marijuana in the past. Physical examination: VITAL SIGNS: 97.6, 69, 16, 152/71, 95% GENERAL: Sitting p in bed comfortable EYES: Pupils equal. Conjunctiva julieta l. HEENT: External appearance of nose and ears normal, oral cavity grossly normal. NECK: JVD not raised; masses not palpable. HEART: First and second heart sounds are normal; no edema. LUNGS:[ Respiratory rate-normal decreased breath sounds. ABDOMEN: Soft, nontender, liver spleen not palpable, no masses palpable. PSYCH: Sleepy but able to answer questions comfortably l MUSCULOSKELETAL: Left BKA. With prosthesis. Right foot second third and fourth toe amputated. Awaiting new wound VAC placement currently dressing in place INVESTIGATIONS, reviewed in the clinical context: April 06: White count 9.2 hemoglobin 7.1 potassium 3.5 BUN 40 creatinine 3.56 Troponin I 0.021, 0.021, 0.021. March 31, 2024: White count 12.1 hemoglobin 8.9 platelets 264 sodium 134 potassium 3.9 BUN 53 creatinine 2.67 EKG tracing personally reviewed by me-normal sinus rhythm. Poor R wave progression. Chest x-ray film personally reviewed by me-some cardiomegaly. Some venous prominence Assessment and plan: -Sepsis secondary to right foot infection with chronic wound that is being followed at the wound care center. Is followed by Dr. Denton from vascular.: Wound cultures: Proteus vulgaris, Klebsiella oxytoca, MRSA Blood cultures-negative . IV Unasyn per ID, vancomycin -Acute on chronic right foot wound which is being followed at wound care center., From underlying PAD Dr. Denton from vascular-callus on the foot of her right removed on April 01. Tissue sent for culture New pus draining around the site of the infected callus removed:-Patient taken back to the OR for further debridement on April [address] Denton.. Repeat deep tissue cultures pending Wound VAC On IV vancomycin IV Unasyn -Chronic congestive heart failure exacerbation from systolic dysfunction EF 45%: Demadex -End-stage kidney disease on peritoneal dialysis Nephrology following -Anemia of chronic kidney disease Aranesp -Essential hypertension Toprol-XL 100 mg a day. Amlodipine 5 mg twice daily. Hydralazine-as needed -Diabetes mellitus type 2, chronically insulin, uncontrolled with hyperglycemia Follow Accu-Cheks with sliding scale insulin. Increase schedule NovoLog 70/30 with sliding scale -BPH Flomax -Hyperlipidemia Lipitor 40mg nightly -Obesity BMI 38 Weight loss measures -Depression anxiety Prozac 40 mg twice daily -Diabetic peripheral neuropathy Neurontin 400 mg nightly -COPD in a current smoker inhalers -Chronic nicotine dependence cigarette smoker. Currently down to about 2 cigarettes a day Nicotine patch -Left below-knee amputation with a prosthesis. Right foot second third and fourth toe amputation. -Full code Discussed with patient. Hopefully cultures come tomorrow patient can then be discharged. Increase dose of Novolin 70/30 Past Medical History Past Medical History: Coronary Artery Disease (CAD), Heart Failure, COPD, Diabetes Mellitus, Eye Disorder, GERD/Reflux, Hyperlipidemia, Hypertension, Myocardial Infarction (OR), Osteoarthritis (OA), Renal Disease, Respiratory Disorder, Sleep Apnea/CPAP/BIPAP, Vascular Disorder Additional Past Medical History / Comment(s): Poor circulation in hands and legs/feet. 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 does not wear cpap Last Myocardial Infarction Date:: 2014 History of Any Multi-Drug Resistant Organisms: MRSA Date of last positivie culture/infection: approx 2015 MDRO Source:: right foot Past Surgical History: Heart Catheterization With Stent, Hernia Repair, Tonsillectomy Additional Past Surgical History / Comment(s): Right foot 3rd and 4th AND 5TH toes and area of foot amputated, cyst on scrotum removed. partial amp lt foot but had non healing wound which resulted in lt bka. matilde cataracts removed-has lens implants. x3 rt inguinal hernia sx and an umb hernia repair. BELOW KNEE AMPUTATION , COLONOSCOPY Stent LADx1 03/09/2024-(R) Groin manual pull Past Anesthesia/Blood Transfusion Reactions: No Reported Reaction Additional Past Anesthesia/Blood Transfusion Reaction / Comment(s): States he was in the ICU after his surgery on his toes, but does not know why. Date of Last Stent Placement:: 05/2015 APPROX Smoking Status: Current some day smoker Additional Past Alcohol Use History / Comment(s): few ciagarettets a dayt
[2024-04-08 21:16] LABS: Glucose,Whole Blood 284 mg/dL (70-110)
[2024-04-09 05:52] LABS: Glucose,Whole Blood 286 mg/dL (70-110)
[2024-04-09] MEDS: INSULN ASP PRT/INSULIN ASPART 100 UNIT/ML 10 ML VIAL SQ SCH ×2 (06:46→11:50)
--- NOTE | 2024-04-09 08:35 | P.PN ---
Subjective Progress Note Date: 04/08/24 Principal diagnosis: Reason for follow-up is right diabetic foot infected callus infection, MRSA Patient is a 58-year-old male with multiple comorbidities presented to hospital with a fever concerning for infected callus on the right foot in this patient who is status post bedside debridement of the infected callus and culture by vascular surgeon. Patient did have OR drainage of the abscess on 04/05/2024 On today's evaluation that is 04/08/2024,the patient denies any fever or any chills, patient is breathing comfortably on room air, the patient denies chest pain shortness of breath and no significant cough, patient denies abdominal pain, no nausea vomiting or diarrhea. Denies any worsening pain to the right foot. No new labs were obtained today repeat right foot culture did grew Proteus sensitive to Unasyn and Rocephin Objective - Vital Signs Vital signs: Vital Signs Temp 97.8 F 04/08/24 12:51 Pulse 77 04/08/24 07:37 Resp 16 04/08/24 12:51 BP 129/61 04/08/24 12:51 Pulse Ox 94 L 04/08/24 12:51 FiO2 Intake & Output 04/07/24 04/08/24 04/08/24 18:59 06:59 18:59 Other: Voiding Method Toilet Urinal # Voids 3 2 - Exam GENERAL DESCRIPTION: Middle-age male up in bed in no distress RESPIRATORY SYSTEM: Unlabored breathing , decreased breath sounds at bases HEART: S1 S2 regular rate and rhythm , ABDOMEN: Soft , no tenderness EXTREMITIES: Right foot currently dressed no drainage - Labs CBC & Chem 7: 04/06/24 03:28 04/06/24 03:28 Labs: Abnormal Lab Results - Last 24 Hours (Table) 04/07/24 04/08/24 04/08/24 Range/Units 21:12 06:02 11:22 POC Glucose (mg/dL) 219 H 173 H 224 H (70-110) mg/dL 04/08/24 Range/Units 16:36 POC Glucose (mg/dL) 214 H (70-110) mg/dL Microbiology - Last 24 Hours (Table) 04/05/24 10:00 Anaerobic Culture - Preliminary Other - Other 04/05/24 10:00 Gram Stain - Final Other - Other Tissue Culture - Final Proteus vulgaris group Assessment and Plan (1) Sepsis Current Visit: Yes Status: Acute Code(s): A41.9 - SEPSIS, UNSPECIFIED ORGANISM SNOMED Code(s): 30871691 (2) Abscess or cellulitis of foot Current Visit: No Status: Acute Code(s): L03.119 - CELLULITIS OF UNSPECIFIED PART OF LIMB; L02.619 - CUTANEOUS ABSCESS OF UNSPECIFIED FOOT SNOMED Code(s): 56947628 (3) Diabetic foot ulcer associated with type 2 diabetes mellitus Current Visit: No Status: Acute Code(s): E11.621 - TYPE 2 DIABETES MELLITUS WITH FOOT ULCER SNOMED Code(s): 7316030487769 Plan: 1patient presented hospital with sepsis in this patient who did have fever tachycardia elevated white count source likely right diabetic foot infected dong dayan and cellulitis and concerning for possible abscess we will need to cover for the polymicrobial lindsay associated with diabetic foot infection 2-patient is status post vascular surgery evaluation and debridement of infected callus and drainage, cultures currently growing MRSA Proteus and Klebsiella 3patient did have repeat surgical drainage cultures are currently growing Proteus that is sensitive to Unasyn and Rocephin 4patient is currently waiting for PICC line placement we will keep the patient on vancomycin and Unasyn reevaluate the wound tomorrow to determine the depth of infection at the time of wound VAC change Dictation was produced using [employer] dictation software. please excuse any grammatical, word or spelling errors. Time with Patient: Less than 30
[2024-04-09] MEDS: VANCOMYCIN 1,750 MG in SODIUM CHLORIDE 0.9% 500 ML 500 ML IVPB ONE (09:51)
[2024-04-09] MEDS: TORSEMIDE 20 MG TAB PO SCH (10:15)
--- NOTE | 2024-04-09 10:23 | P.PN ---
Subjective Patient is seen in follow-up for end-stage renal disease. He is maintained on peritoneal dialysis. No problems with PD exchanges. No active complaints. Vital signs are stable. General: No acute distress. HEENT: Head exam is unremarkable. LUNGS: No audible rhonchi or wheezes. HEART: Rate and Rhythm are regular. ABDOMEN: Obese, nontender. EXTREMITITES: Left BKA. Right foot wrapped. Wound VAC noted. Objective - Vital Signs Vital signs: Vital Signs Temp 98.1 F 04/09/24 07:37 Pulse 72 04/09/24 07:37 Resp 17 04/09/24 07:37 BP 160/95 04/09/24 07:37 Pulse Ox 97 04/09/24 07:37 FiO2 Intake & Output 04/08/24 04/09/24 04/09/24 18:59 06:59 18:59 Output Total 250 Balance -250 Output: Urine 250 Other: Voiding Method Toilet Toilet Urinal Urinal # Voids 3 - Labs CBC & Chem 7: 04/06/24 03:28 04/06/24 03:28 Labs: Abnormal Lab Results - Last 24 Hours (Table) 04/08/24 04/08/24 04/08/24 Range/Units 11:22 16:36 21:15 POC Glucose (mg/dL) 224 H 214 H 284 H (70-110) mg/dL 04/09/24 Range/Units 05:50 POC Glucose (mg/dL) 286 H (70-110) mg/dL Assessment and Plan Plan: Assessment: 1. End-stage renal disease maintained on peritoneal dialysis. 2. Right foot wound on antibiotics. ID and vascular surgery following. Status post debridement this admission. 3. Anemia of chronic kidney disease. On Aranesp. 4. Diabetes mellitus. 5. Hypertension with chronic kidney disease. Stable. 6. Chronic kidney disease mineral bone disease. Phosphorus level normal this admission. Plan: Change PD exchanges to 2 L every 6 hours with 2.5% dextrose solution. Maintain torsemide. Change dose to 40 mg once daily. Add scheduled hydralazine. Okay to place PICC line in the right arm.
[2024-04-09] MEDS: hydrALAZINE HCL 50 MG TAB PO SCH (10:59)
[2024-04-09 11:47] LABS: Glucose,Whole Blood 261 mg/dL (70-110)
--- NOTE | 2024-04-09 12:50 | P.PN ---
Subjective Progress Note Date: 04/09/24 Principal diagnosis: Reason for follow-up is right diabetic foot infected callus infection, MRSA Patient is a 58-year-old male with multiple comorbidities presented to hospital with a fever concerning for infected callus on the right foot in this patient who is status post bedside debridement of the infected callus and culture by vascular surgeon. Patient did have OR drainage of the abscess on 04/05/2024 On today's evaluation that is 04/09/2024,the patient remains to be afebrile, patient is on room air not requiring supplemental oxygen and denies any shortness of breath no chest pain or cough.Patient denies having any nausea or vomiting, no abdominal pain and no diarrhea has been reported, pain to the right foot is currently controlled. Patient did have vancomycin at home of 18.2 repeat or culture with Proteus vulgaris Objective - Vital Signs Vital signs: Vital Signs Temp 98.4 F 04/09/24 12:42 Pulse 68 04/09/24 12:42 Resp 17 04/09/24 12:42 BP 169/70 04/09/24 12:42 Pulse Ox 99 04/09/24 12:42 FiO2 Intake & Output 04/08/24 04/09/24 04/09/24 18:59 06:59 18:59 Output Total 250 Balance -250 Output: Urine 250 Other: Voiding Method Toilet Toilet Urinal Urinal # Voids 3 - Exam GENERAL DESCRIPTION: Middle-age male up in bed in no distress RESPIRATORY SYSTEM: Unlabored breathing , decreased breath sounds at bases HEART: S1 S2 regular rate and rhythm , ABDOMEN: Soft , no tenderness EXTREMITIES: Right foot with extensive wound post debridement - Labs CBC & Chem 7: 04/06/24 03:28 04/06/24 03:28 Labs: Abnormal Lab Results - Last 24 Hours (Table) 04/08/24 04/08/24 04/09/24 Range/Units 16:36 21:15 05:50 POC Glucose (mg/dL) 214 H 284 H 286 H (70-110) mg/dL 04/09/24 Range/Units 11:45 POC Glucose (mg/dL) 261 H (70-110) mg/dL Assessment and Plan (1) Sepsis Current Visit: Yes Status: Acute Code(s): A41.9 - SEPSIS, UNSPECIFIED ORGANISM SNOMED Code(s): 20619040 (2) Abscess or cellulitis of foot Current Visit: No Status: Acute Code(s): L03.119 - CELLULITIS OF UNSPECIFIED PART OF LIMB; L02.619 - CUTANEOUS ABSCESS OF UNSPECIFIED FOOT SNOMED Code(s): 75106260 (3) Diabetic foot ulcer associated with type 2 diabetes mellitus Current Visit: No Status: Acute Code(s): E11.621 - TYPE 2 DIABETES MELLITUS WITH FOOT ULCER SNOMED Code(s): 0321781531548 Plan: 1patient presented hospital with sepsis in this patient who did have fever tachycardia elevated white count source likely right diabetic foot infected callus and cellulitis and concerning for possible abscess we will need to cover for the polymicrobial lindsay associated with diabetic foot infection 2-patient is status post vascular surgery evaluation and debridement of infected callus and drainage, cultures currently growing MRSA Proteus and Klebsiella 3patient did have repeat surgical drainage cultures are currently growing Proteus that is sensitive to Unasyn and Rocephin 4patient did received PICC line with anaerobe culture negative we will switch Unasyn to Rocephin 2 g daily and continue with vancomycin pharmacy to dose for 6 weeks prescription has been provided to the mattress spring encaser once antibiotic arranged she will be able to go home from ID standpoint Dictation was produced using [employer] dictation software. please excuse any grammatical, word or spelling errors. Time with Patient: Less than 30
--- NOTE | 2024-04-09 16:13 | P.PN ---
Progress Note - Text Progress Note Date: 04/09/24 Chief Complaint: Fever Pleasant 58-year-old patient follows with Dr. Harris. Chronic stable medical conditions include CAD, COPD, diabetes, GERD, hyperlipidemia, hypertension, end-stage kidney disease with hemodialysis, obstructive sleep apnea, PAD, left foot BKA with the prosthesis, home oxygen 2.5 L at night. CAD with stent right foot third fourth and fifth toe amputated. Patient is on peritoneal dialysis. Patient follows at the wound care, Dr. Denton but was recently debrided on Tuesday. For about 3 days patient not been feeling well. Decreased appetite. Yesterday spiked a fever of 102.6. Decided to come in. Has a wound on the right foot. Blood cultures drawn in the ER. Did receive vancomycin. at the bedside. Feeling better this morning. Did eat some breakfast. April 01: Patient had a callus at the bottom of the right foot removed by Dr. Denton today. Dressing in place. No further fever. Decreased appetite. Discussed with patient and . On IV Unasyn. Getting his peritoneal dialysis. Diet discussed. Cultures pending-cultures from callus removed today also sent out April 02: Patient vomited x 2. Will give a short course of Reglan. Wound cultures are growing presumptive MRSA. Gram-negative bacilli. Discussed with patient. Getting IV cefepime and IV vancomycin. Changed to full liquid diet April 03: Patient doing well on Reglan. Able to keep his full liquids down. Advance to chopped diet today. Cultures not finalized. Remains on IV cefepime and vancomycin. Patient feels more rested and better. April 04: Today patient's foot noticed to be boggy around very callus was removed. Pus was being extracted. Dr. Denton was informed. He is planning to take the patient down for OR for further I&D. Otherwise patient tolerating a diet. Patient agreed Patient otherwise had no fever. Diet advanced. No n.p.o. after midnight. On IV Unasyn. April 05: Patient was taken to the OR by Dr. Denton today. I&D was carried out. For the infected callus surrounding area. Patient returns with a wound VAC. Spoke to the patient and the . Deep cultures were sent. Continue IV vancomycin and Unasyn as per ID. April 06: Saw the patient this morning. Wound VAC yesterday to be removed as it got clotted. He is pending another 1 today. Pain controlled. Tolerating diet. Antibiotics to continue. ID is awaiting for repeat deep tissue cultures. Will need PICC line for outpatient treatment. April 07: Eating well. Some pain present. Being visited by his and executive assistant to general counsel. On antibiotics. Repeat deep tissue cultures pending. PICC line on Tuesday. April 08: Some pain at the operative site. Wound VAC in place. Getting antibiotics. Cultures have started to show Proteus vulgaris. Eating well. April 09: Antibiotics are being arranged by ID. Probably will be arranged by tomorrow. Otherwise patient stable. Wound VAC in place. Active Medications Acetaminophen (Acetaminophen Tab 325 Mg Tab) 650 mg PO Q6HR PRN PRN Reason: Mild Pain or Fever > 100.5 Last Admin: 04/01/24 20:38 Dose: 650 mg Allopurinol (Allopurinol 100 Mg Tab) 100 mg PO DAILY [facility] Last Admin: 04/09/24 08:32 Dose: 100 mg Amlodipine Besylate (Amlodipine 5 Mg Tab) 5 mg PO BID [facility] Last Admin: 04/09/24 08:32 Dose: 5 mg Aspirin (Aspirin 81 Mg) 81 mg PO [facility] Last Admin: 04/08/24 22:23 Dose: 81 mg Atorvastatin Calcium (Atorvastatin 40 Mg Tab) 40 mg PO [facility] Last Admin: 04/08/24 22:23 Dose: 40 mg Darbepoetin Landen (Darbepoetin Landen 40 Mcg/0.4 Ml Syringe) 40 mcg SQ Q7D [facility] Last Admin: 04/07/24 11:49 Dose: 40 mcg Dextrose/Water (Dextrose 50% Syringe 50 Ml) 25 ml IVP PER PROTOCOL PRN; Protocol PRN Reason: Hypoglycemia Dextrose/Water (Dextrose 50% Syringe 50 Ml) 50 ml IVP PER PROTOCOL PRN; Protocol PRN Reason: Hypoglycemia Enoxaparin Sodium (Enoxaparin 40 Mg/0.4 Ml Syringe) 40 mg SQ DAILY [facility] Last Admin: 04/09/24 08:32 Dose: 40 mg Fluoxetine HCl (Fluoxetine Hcl 20 Mg Cap) 40 mg PO BID [facility] Last Admin: 04/09/24 08:32 Dose: 40 mg Gabapentin (Gabapentin 400 Mg Cap) 400 mg PO [facility] Last Admin: 04/08/24 22:23 Dose: 400 mg Hydralazine HCl (Hydralazine Hcl 50 Mg Tab) 50 mg PO BID [facility] Last Admin: 04/09/24 10:59 Dose: 50 mg Hydromorphone HCl (Hydromorphone 0.5 Mg/0.5 Ml Syringe) 0.5 mg IVP Q4HR PRN PRN Reason: Pain Last Admin: 04/09/24 13:23 Dose: 0.5 mg Peritoneal Dialysis Solution (Delflex With 2.5% Dextrose (2,000 Ml)) 50 g in 2,000 mls @ 0 mls/hr INTRAPERIT Q6HR [facility]; Protocol Last Admin: 04/09/24 12:33 Dose: 1 mls/hr Ceftriaxone Sodium 2 gm/ (Sodium Chloride) 50 mls @ 100 mls/hr IVPB Q24HR [facility]; Protocol Insulin Aspart (Insulin Aspart (Novolog) 100 Unit/Ml Vial) 0 unit SQ ACHS [facility]; Protocol Last Admin: 04/09/24 11:50 Dose: 6 unit Insulin Aspart (Insuln Asp Prt/Insulin Aspart 100 Unit/Ml 10 Ml Vial) 8 unit SQ AC-LUNCH [facility] Last Admin: 04/09/24 11:50 Dose: 8 unit Insulin Aspart (Insuln Asp Prt/Insulin Aspart 100 Unit/Ml 10 Ml Vial) 18 unit SQ AC-BID [facility] Last Admin: 04/09/24 06:46 Dose: 18 unit Isosorbide Mononitrate (Isosorbide Mononitrate Er 60 Mg Tab.Er.24h) 60 mg PO DAILY [facility] Last Admin: 04/09/24 08:32 Dose: 60 mg Loratadine (Loratadine 10 Mg Tab) 10 mg PO HS [facility] Last Admin: 04/08/24 22:23 Dose: 10 mg Metoprolol Succinate (Metoprolol Succinate (Er) 100 Mg Tab.Er.24h) 100 mg PO DAILY [facility] Last Admin: 04/09/24 08:33 Dose: 100 mg Miscellaneous Information (Vancomycin Iv Per Pharmacy 1 Each [facility]) 1 each MISCELLANE DIRECTED PRN; Protocol PRN Reason: Per Protocol Naloxone HCl (Naloxone 0.4 Mg/Ml 1 Ml Vial) 0.2 mg IV Q2M PRN PRN Reason: Opioid Reversal Nitroglycerin (Nitroglycerin Sl Tabs 0.4 Mg Tab) 0.4 mg SUBLINGUAL Q5M PRN PRN Reason: Chest Pain Ondansetron HCl (Ondansetron 4 Mg/2 Ml Vial) 4 mg IVP Q8HR PRN PRN Reason: Nausea And Vomiting Last Admin: 04/08/24 12:58 Dose: 4 mg Pantoprazole Sodium (Pantoprazole 40 Mg Tablet) 80 mg PO HS [facility] Last Admin: 04/08/24 22:23 Dose: 80 mg Psyllium Hydrophilic Mucilloid (Psyllium Husk 100% 6 Gm Packet) 6 gm PO DAILY [facility] Last Admin: 04/09/24 08:33 Dose: Not Given Tamsulosin HCl (Tamsulosin 0.4 Mg Cap.Er.24h) 0.4 mg PO DAILY [facility] Last Admin: 04/09/24 08:32 Dose: 0.4 mg Ticagrelor (Ticagrelor 90 Mg Tab) 90 mg PO BID [facility] Last Admin: 04/09/24 08:33 Dose: 90 mg Torsemide (Torsemide 20 Mg Tab) 40 mg PO DAILY [facility] Last Admin: 04/09/24 10:15 Dose: 40 mg Social history: Lives with his . Smokes about half a pack a day for many years-recently down to few cigarettes a day. No alcohol. Did use marijuana in the past. Physical examination: VITAL SIGNS: 97.7, 67, 17, 128 x 69, 98% on 2 L GENERAL: Sitting up, comfortable EYES: Pupils equal. Conjunctiva julieta l. HEENT: External appearance of nose and ears normal, oral cavity grossly normal. NECK: JVD not raised; masses not palpable. HEART: First and second heart sounds are normal; no edema. LUNGS:[ Respiratory rate-normal decreased breath sounds. ABDOMEN: Soft, nontender, liver spleen not palpable, no masses palpable. PSYCH: Sleepy but able to answer questions comfortably l MUSCULOSKELETAL: Left BKA. With prosthesis. Right foot second third and fourth toe amputated. Awaiting new wound VAC placement currently dressing in place INVESTIGATIONS, reviewed in the clinical context: Deep wound cultures postsurgical showing Proteus vulgaris April 06: White count 9.2 hemoglobin 7.1 potassium 3.5 BUN 40 creatinine 3.56 Troponin I 0.021, 0.021, 0.021. March 31, 2024: White count 12.1 hemoglobin 8.9 platelets 264 sodium 134 potassium 3.9 BUN 53 creatinine 2.67 EKG tracing personally reviewed by me-normal sinus rhythm. Poor R wave progression. Chest x-ray film personally reviewed by me-some cardiomegaly. Some venous prominence Assessment and plan: -Sepsis secondary to right foot infection with chronic wound that is being followed at the wound care center. Is followed by Dr. Denton from vascular.: Initial wound cultures: Proteus vulgaris, Klebsiella oxytoca, MRSA Blood cultures-negative Deep wound cultures postsurgical: Proteus vulgaris . IV Unasyn per ID, vancomycin -Acute on chronic right foot wound which is being followed at wound care center., From underlying PAD Dr. Denton from vascular-callus on the foot of her right removed on April 01. Tissue sent for culture New pus draining around the site of the infected callus removed:-Patient taken back to the OR for further debridement on April [address] Denton.. Repeat deep tissue cultures: Proteus vulgaris Wound VAC On IV vancomycin IV Unasyn -Chronic congestive heart failure exacerbation from systolic dysfunction EF 45%: Demadex -End-stage kidney disease on peritoneal dialysis Nephrology following -Anemia of chronic kidney disease Aranesp -Essential hypertension Toprol-XL 100 mg a day. Amlodipine 5 mg twice daily. Hydralazine-as needed -Diabetes mellitus type 2, chronically insulin, uncontrolled with hyperglycemia Follow Accu-Cheks with sliding scale insulin. Increase schedule NovoLog 70/30 with sliding scale -BPH Flomax -Hyperlipidemia Lipitor 40mg nightly -Obesity BMI 38 Weight loss measures -Depression anxiety Prozac 40 mg twice daily -Diabetic peripheral neuropathy Neurontin 400 mg nightly -COPD in a current smoker inhalers -Chronic nicotine dependence cigarette smoker. Currently down to about 2 cigarettes a day Nicotine patch -Left below-knee amputation with a prosthesis. Right foot second third and fourth toe amputation. -Full code Home biotics are being arranged by case picker. Probably plan for discharge tomorrow. Past Medical History Past Medical History: Coronary Artery Disease (CAD), Heart Failure, COPD, Diabetes Mellitus, Eye Disorder, GERD/Reflux, Hyperlipidemia, Hypertension, Myocardial Infarction (AR), Osteoarthritis (OA), Renal Disease, Respiratory Disorder, Sleep Apnea/CPAP/BIPAP, Vascular Disorder Additional Past Medical History / Comment(s): Poor circulation in hands and legs/feet. 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 does not wear cpap Last Myocardial Infarction Date:: 2014 History of Any Multi-Drug Resistant Organisms: MRSA Date of last positivie culture/infection: approx 2015 MDRO Source:: right foot Past Surgical History: Heart Catheterization With Stent, Hernia Repair, Tonsillectomy Additional Past Surgical History / Comment(s): Right foot 3rd and 4th AND 5TH toes and area of foot amputated, cyst on scrotum removed. partial amp lt foot but had non healing wound which resulted in lt bka. matilde cataracts removed-has lens implants. x3 rt inguinal hernia sx and an umb hernia repair. BELOW KNEE AMPUTATION , COLONOSCOPY Stent LADx1 03/09/2024-(R) Groin manual pull Past Anesthesia/Blood Transfusion Reactions: No Reported Reaction Additional Past Anesthesia/Blood Transfusion Reaction / Comment(s): States he was in the ICU after his surgery on his toes, but does not know why. Date of Last Stent Placement:: 05/2015 APPROX Smoking Status: Current some day smoker Additional Past Alcohol Use History / Comment(s): few ciagarettets a dayt
[2024-04-09 16:35] LABS: Glucose,Whole Blood 336 mg/dL (70-110)
[2024-04-09 21:41] LABS: Glucose,Whole Blood 306 mg/dL (70-110)
--- NOTE | 2024-04-10 05:14 | PN ---
PROGRESS NOTE The patient has a history of hypertension and wound debridement of right foot. The patient has a wound VAC also. The patient is on IV antibiotic under the care of Infectious Disease. Wound VAC is working and the patient will be going home tomorrow with the wound VAC that is placed and the patient will be following with me next Tuesday at [facility]. ALBERTA / YVONNE: [id number] /
[2024-04-10 06:30] VITALS: RESP 18
[2024-04-10 06:43] LABS: Glucose,Whole Blood 360 mg/dL (70-110)
[2024-04-10 08:23] LABS: Glucose,Whole Blood 342 mg/dL (70-110)
--- NOTE | 2024-04-10 09:24 | P.PN ---
Subjective Patient is seen in follow-up for end-stage renal disease. He is maintained on peritoneal dialysis. No problems with PD exchanges. No active complaints. PICC line placed yesterday. Vital signs are stable. General: No acute distress. HEENT: Head exam is unremarkable. LUNGS: No audible rhonchi or wheezes. HEART: Rate and Rhythm are regular. ABDOMEN: Obese, nontender. EXTREMITITES: Left BKA. Right foot wrapped. Wound VAC noted. Objective - Vital Signs Vital signs: Vital Signs Temp 98.2 F 04/10/24 08:00 Pulse 79 04/10/24 08:00 Resp 18 04/10/24 08:00 BP 151/73 04/10/24 08:00 Pulse Ox 97 04/10/24 08:00 FiO2 Intake & Output 04/09/24 04/10/24 04/10/24 18:59 06:59 18:59 Intake Total 472 Output Total 300 Balance -300 472 Intake: Oral 472 Output: Urine 300 Other: Voiding Method Toilet Urinal # Bowel Movements 1 - Labs CBC & Chem 7: 04/06/24 03:28 04/06/24 03:28 Labs: Abnormal Lab Results - Last 24 Hours (Table) 04/09/24 04/09/24 04/09/24 Range/Units 11:45 16:34 21:40 POC Glucose (mg/dL) 261 H 336 H 306 H (70-110) mg/dL 04/10/24 04/10/24 Range/Units 06:41 08:21 POC Glucose (mg/dL) 360 H 342 H (70-110) mg/dL Microbiology - Last 24 Hours (Table) 04/05/24 10:00 Anaerobic Culture - Final Other - Other Assessment and Plan Plan: Assessment: 1. End-stage renal disease maintained on peritoneal dialysis. 2. Right foot wound on antibiotics. ID and vascular surgery following. Status post debridement this admission. 3. Anemia of chronic kidney disease. On Aranesp. 4. Diabetes mellitus. 5. Hypertension with chronic kidney disease. Stable. 6. Chronic kidney disease mineral bone disease. Phosphorus level normal this admission. Plan: Maintain current PD exchanges - 2 L every 6 hours with 2.5% dextrose solution. Maintain torsemide. Stable for discharge from nephrology standpoint.
[2024-04-10 11:08] LABS: Glucose,Whole Blood 335 mg/dL (70-110)
[2024-04-10 12:55] VITALS: BP 114/62; PULSE 75; TEMP 98.4
--- NOTE | 2024-04-10 14:09 | P.PN ---
Subjective Progress Note Date: 04/10/24 Principal diagnosis: Reason for follow-up is right diabetic foot infected callus infection, MRSA Patient is a 58-year-old male with multiple comorbidities presented to hospital with a fever concerning for infected callus on the right foot in this patient who is status post bedside debridement of the infected callus and culture by vascular surgeon. Patient did have OR drainage of the abscess on 04/05/2024 On today's evaluation that is 04/10/2024, the patient continues to be afebrile, the patient is on room air and breathing comfortably, the Pt denies having any chest pain or cough, the patient denies having any abdominal pain no vomiting or any diarrhea denies any worsening pain to the right foot wound. No new lab has been obtained today Objective - Vital Signs Vital signs: Vital Signs Temp 98.4 F 04/10/24 12:54 Pulse 75 04/10/24 12:54 Resp 18 04/10/24 12:54 BP 114/62 04/10/24 12:54 Pulse Ox 92 L 04/10/24 12:54 FiO2 Intake & Output 04/09/24 04/10/24 04/10/24 18:59 06:59 18:59 Intake Total 472 Output Total 300 600 Balance -300 -128 Intake: Oral 472 Output: Urine 300 600 Other: Voiding Method Toilet Toilet Urinal Urinal # Bowel Movements 1 - Exam GENERAL DESCRIPTION: Middle-age male up in bed in no distress RESPIRATORY SYSTEM: Unlabored breathing , decreased breath sounds at bases HEART: S1 S2 regular rate and rhythm , ABDOMEN: Soft , no tenderness EXTREMITIES: Right foot with extensive wound post debridement - Labs CBC & Chem 7: 04/06/24 03:28 04/06/24 03:28 Labs: Abnormal Lab Results - Last 24 Hours (Table) 04/09/24 04/09/24 04/10/24 Range/Units 16:34 21:40 06:41 POC Glucose (mg/dL) 336 H 306 H 360 H (70-110) mg/dL 04/10/24 04/10/24 Range/Units 08:21 11:06 POC Glucose (mg/dL) 342 H 335 H (70-110) mg/dL Microbiology - Last 24 Hours (Table) 04/05/24 10:00 Anaerobic Culture - Final Other - Other Assessment and Plan (1) Sepsis Current Visit: Yes Status: Acute Code(s): A41.9 - SEPSIS, UNSPECIFIED ORGAN ISM SNOMED Code(s): 34963974 (2) Abscess or cellulitis of foot Current Visit: No Status: Acute Code(s): L03.119 - CELLULITIS OF UNSPECIFIED PART OF LIMB; L02.619 - CUTANEOUS ABSCESS OF UNSPECIFIED FOOT SNOMED Code(s): 63085786 (3) Diabetic foot ulcer associated with type 2 diabetes mellitus Current Visit: No Status: Acute Code(s): E11.621 - TYPE 2 DIABETES MELLITUS WITH FOOT ULCER SNOMED Code(s): 2725034240630 Plan: 1patient presented hospital with sepsis in this patient who did have fever tachycardia elevated white count source likely right diabetic foot infected callus and cellulitis and concerning for possible abscess we will need to cover for the polymicrobial lindsay associated with diabetic foot infection 2-patient is status post vascular surgery evaluation and debridement of infected callus and drainage, cultures currently growing MRSA Proteus and Klebsiella 3patient did have repeat surgical drainage cultures are currently growing Proteus that is sensitive to Unasyn and Rocephin 4patient did received PICC line, prescription for IV vancomycin and Rocephin were provided to the nurse case management yesterday once antibiotic arranged will be able to go home from ID standpoint and close outpatient follow-up Dictation was produced using [employer] dictation software. please excuse any grammatical, word or spelling errors. Time with Patient: Less than 30
--- NOTE | 2024-04-10 22:36 | P.DS ---
Providers Date of admission: 03/30/24 21:43 Expected date of discharge: 04/10/24 Attending physician: Ruben Paz Consults: 03/30/24 21:43 Consult Physician Routine Consulting Provider: Александр Miller Consult Reason/Comments: known Do you want consulting provider notified?: Yes Consult Physician Routine Consulting Provider: Mino Denton Consult Reason/Comments: known Do you want consulting provider notified?: Yes Consult Physician Urgent Consulting Provider: Luciano Melendez Consult Reason/Comments: CKD Do you want consulting provider notified?: Yes 03/30/24 21:59 Consult Physician Routine Consulting Provider: Donovan Zambrano Consult Reason/Comments: known Do you want consulting provider notified?: Yes [facility] Course: Chief Complaint: Fever Pleasant 58-year-old patient follows with Dr. Harris. Chronic stable medical conditions include CAD, COPD, diabetes, GERD, hyperlipidemia, hypertension, end-stage kidney disease with hemodialysis, obstructive sleep apnea, PAD, left foot BKA with the prosthesis, home oxygen 2.5 L at night. CAD with stent right foot third fourth and fifth toe amputated. Patient is on peritoneal dialysis. Patient follows at the wound care, Dr. Denton but was recently debrided on Tuesday. For about 3 days patient not been feeling well. Decreased appetite. Yesterday spiked a fever of 102.6. Decided to come in. Has a wound on the right foot. Blood cultures drawn in the ER. Did receive vancomycin. at the bedside. Feeling better this morning. Did eat some breakfast. April 01: Patient had a callus at the bottom of the right foot removed by Dr. Denton today. Dressing in place. No further fever. Decreased appetite. Discussed with patient and . On IV Unasyn. Getting his peritoneal dialysis. Diet discussed. Cultures pending-cultures from callus removed today also sent out April 02: Patient vomited x 2. Will give a short course of Reglan. Wound cultures are growing presumptive MRSA. Gram-negative bacilli. Discussed with patient. Getting IV cefepime and IV vancomycin. Changed to full liquid diet April 03: Patient doing well on Reglan. Able to keep his full liquids down. Advance to chopped diet today. Cultures not finalized. Remains on IV cefepime and vancomycin. Patient feels more rested and better. April 04: Today patient's foot noticed to be boggy around very callus was removed. Pus was being extracted. Dr. Denton was informed. He is planning to take the patient down for OR for further I&D. Otherwise patient tolerating a diet. Patient agreed Patient otherwise had no fever. Diet advanced. No n.p.o. after midnight. On IV Unasyn. April 05: Patient was taken to the OR by Dr. Denton today. I&D was carried out. For the infected callus surrounding area. Patient returns with a wound VAC. Spoke to the patient and the . Deep cultures were sent. Continue IV vancomycin and Unasyn as per ID. April 06: Saw the patient this morning. Wound VAC yesterday to be removed as it got clotted. He is pending another 1 today. Pain controlled. Tolerating diet. Antibiotics to continue. ID is awaiting for repeat deep tissue cultures. Will need PICC line for outpatient treatment. April 07: Eating well. Some pain present. Being visited by his and reference library assistant. On antibiotics. Repeat deep tissue cultures pending. PICC line on Tuesday. April 08: Some pain at the operative site. Wound VAC in place. Getting antibiotics. Cultures have started to show Proteus vulgaris. Eating well. April 09: Antibiotics are being arranged by ID. Probably will be arranged by tomorrow. Otherwise patient stable. Wound VAC in place. April 10: IV vancomycin Rocephin is being arranged by ID for home antibiotic. Discussed with patient. Wound VAC is also being arranged. Discussed with case assembler the patient. Questions answered. Eating well. Patient follow-up with Dr. Denton at the wound center Discussion and discharge planning more than 35 minutes Social history: Lives with his . Smokes about half a pack a day for many years-recently down to few cigarettes a day. No alcohol. Did use marijuana in the past. Physical examination: VITAL SIGNS: 98.4, 75, 18, 114 x 62, 92% GENERAL: Sitting up, comfortable EYES: Pupils equal. Conjunctiva julieta l. HEENT: External appearance of nose and ears normal, oral cavity grossly normal. NECK: JVD not raised; masses not palpable. HEART: First and second heart sounds are normal; no edema. LUNGS:[ Respiratory rate-normal decreased breath sounds. ABDOMEN: Soft, nontender, liver spleen not palpable, no masses palpable. PSYCH: Sleepy but able to answer questions comfortably l MUSCULOSKELETAL: Left BKA. With prosthesis. Right foot second third and fourth toe amputated. Awaiting new wound VAC placement currently dressing in place INVESTIGATIONS, reviewed in the clinical context: Deep wound cultures postsurgical showing Proteus vulgaris April 06: White count 9.2 hemoglobin 7.1 potassium 3.5 BUN 40 creatinine 3.56 Troponin I 0.021, 0.021, 0.021. March 31, 2024: White count 12.1 hemoglobin 8.9 platelets 264 sodium 134 potassium 3.9 BUN 53 creatinine 2.67 EKG tracing personally reviewed by me-normal sinus rhythm. Poor R wave progression. Chest x-ray film personally reviewed by me-some cardiomegaly. Some venous prominence Assessment and plan: -Sepsis secondary to right foot infection with chronic wound that is being followed at the wound care center. Is followed by Dr. Denton from vascular.: Initial wound cultures: Proteus vulgaris, Klebsiella oxytoca, MRSA Blood cultures-negative Deep wound cultures postsurgical: Proteus vulgaris . IV Unasyn per ID, vancomycin Patient be discharged on IV vancomycin IV ceftriaxone per ID -Acute on chronic right foot wound which is being followed at wound care center., From underlying PAD Dr. Denton from vascular-callus on the foot of her right removed on April 01. Tissue sent for culture New pus draining around the site of the infected callus removed:-Patient taken back to the OR for further debridement on April [address] Denton.. Repeat deep tissue cultures: Proteus vulgaris Wound VAC On IV vancomycin IV Unasyn Follow-up with Dr. Denton at the wound care center -Chronic congestive heart failure exacerbation from systolic dysfunction EF 45%: Demadex -End-stage kidney disease on peritoneal dialysis Nephrology following -Anemia of chronic kidney disease Aranesp -Essential hypertension Toprol-XL 100 mg a day. Amlodipine 5 mg twice daily. Hydralazine-50 mg twice daily -Diabetes mellitus type 2, chronically insulin, uncontrolled with hyperglycemia Follow Accu-Cheks with sliding scale insulin. Increase schedule NovoLog 70/30 with sliding scale -BPH Flomax -Hyperlipidemia Lipitor 40mg nightly -Obesity BMI 38 Weight loss measures -Depression anxiety Prozac 40 mg twice daily -Diabetic peripheral neuropathy Neurontin 400 mg nightly -COPD in a current smoker inhalers -Chronic nicotine dependence cigarette smoker. Currently down to about 2 cigarettes a day Nicotine patch -Left below-knee amputation with a prosthesis. Right foot second third and fourth toe amputation. -Full code Disposition: Home Past Medical History Past Medical History: Coronary Artery Disease (CAD), Heart Failure, COPD, Diabetes Mellitus, Eye Disorder, GERD/Reflux, Hyperlipidemia, Hypertension, Myocardial Infarction ([place]), Osteoarthritis (OA), Renal Disease, Respiratory Disorder, Sleep Apnea/CPAP/BIPAP, Vascular Disorder Additional Past Medical History / Comment(s): Poor circulation in hands and legs/feet. 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 does not wear cpap Last Myocardial Infarction Date:: 2014 History of Any Multi-Drug Resistant Organisms: MRSA Date of last positivie culture/infection: approx 2015 MDRO Source:: right foot Past Surgical History: Heart Catheterization With Stent, Hernia Repair, Tonsillectomy Additional Past Surgical History / Comment(s): Right foot 3rd and 4th AND 5TH toes and area of foot amputated, cyst on scrotum removed. partial amp lt foot but had non healing wound which resulted in lt bka. matilde cataracts removed-has lens implants. x3 rt inguinal hernia sx and an umb hernia repair. BELOW KNEE AMPUTATION , COLONOSCOPY Stent LADx1 03/09/2024-(R) Groin manual pull Past Anesthesia/Blood Transfusion Reactions: No Reported Reaction Additional Past Anesthesia/Blood Transfusion Reaction / Comment(s): States he was in the ICU after his surgery on his toes, but does not know why. Date of Last Stent Placement:: 05/2015 APPROX Smoking Status: Current some day smoker Additional Past Alcohol Use History / Comment(s): few ciagarettets a dayt Plan - Discharge Summary Discharge Rx Participant: Yes New Discharge Prescriptions: New hydrALAZINE HCL [Apresoline] 50 mg PO BID #60 tab Psyllium Husk 100% [Metamucil Packet] 6 gm PO DAILY packet Continue Tamsulosin [Flomax] 0.4 mg PO DAILY Albuterol Inhaler [Ventolin Hfa Inhaler] 1 - 2 puff INHALATION RT-Q6H PRN PRN Reason: Shortness Of Breath Isosorbide Mononitrate ER [Imdur] 60 mg PO DAILY Pantoprazole [Protonix] 80 mg PO HS amLODIPine [Norvasc] 5 mg PO BID #60 tab Loratadine 10 mg PO HS Atorvastatin [Lipitor] 40 mg PO HS #30 tab Ticagrelor [Brilinta] 90 mg PO BID #180 tab oxyCODONE-APAP 10-325MG [Percocet 10-325 mg] 1 tab PO Q6H PRN PRN Reason: Pain Gabapentin [Neurontin] 400 mg PO HS FLUoxetine HCL [PROzac] 40 mg PO BID Insulin NPH/Reg Insulin 70/30 [humuLIN 70/30 VIAL] 1 - 100 unit SQ AC-TID allopurinoL [Zyloprim] 100 mg PO DAILY Torsemide [Demadex] 20 mg PO BID Aspirin EC [Ecotrin Low Dose] 81 mg PO HS Nitroglycerin Sl Tabs [Nitrostat] 0.4 mg SL Q5M PRN PRN Reason: Chest Pain Metoprolol Succinate (ER) [Toprol XL] 100 mg PO DAILY #30 tab Discontinued hydrALAZINE HCL [Apresoline] 25 mg PO TID PRN PRN Reason: BP >150 Discharge Medication List Tamsulosin [Flomax] 0.4 mg PO DAILY 04/14/18 [History] Albuterol Inhaler [Ventolin Hfa Inhaler] 1 - 2 puff INHALATION RT-Q6H PRN 03/09/19 [History] Isosorbide Mononitrate ER [Imdur] 60 mg PO DAILY 03/11/22 [History] Pantoprazole [Protonix] 80 mg PO HS 03/11/22 [History] oxyCODONE-APAP 10-325MG [Percocet 10-325 mg] 1 tab PO Q6H PRN 03/11/22 [History] FLUoxetine HCL [PROzac] 40 mg PO BID 09/11/23 [History] Gabapentin [Neurontin] 400 mg PO HS 09/11/23 [History] Insulin NPH/Reg Insulin 70/30 [humuLIN 70/30 VIAL] 1 - 100 unit SQ AC-TID 09/11/23 [History] amLODIPine [Norvasc] 5 mg PO BID #60 tab 09/12/23 [Rx] Aspirin EC [Ecotrin Low Dose] 81 mg PO HS 12/16/23 [History] Loratadine 10 mg PO HS 12/16/23 [History] Nitroglycerin Sl Tabs [Nitrostat] 0.4 mg SL Q5M PRN 12/16/23 [History] Torsemide [Demadex] 20 mg PO BID 12/16/23 [History] allopurinoL [Zyloprim] 100 mg PO DAILY 12/16/23 [History] Atorvastatin [Lipitor] 40 mg PO HS #30 tab 12/25/23 [Rx] Metoprolol Succinate (ER) [Toprol XL] 100 mg PO DAILY #30 tab 12/25/23 [Rx] Ticagrelor [Brilinta] 90 mg PO BID #180 tab 03/10/24 [Rx] Psyllium Husk 100% [Metamucil Packet] 6 gm PO DAILY packet 04/10/24 [Rx] hydrALAZINE HCL [Apresoline] 50 mg PO BID #60 tab 04/10/24 [Rx] Follow up Appointment(s)/Referral(s): López Harris DO [Primary Care Provider] - 1-2 days (office will call with appointment time) [facility] [NON-STAFF] - As Needed (wound vac) [facility], [REFERRING] - As Needed W[facility] [NON-STAFF] - 04/16/24 12:45 pm Donovan Zambrano MD [STAFF PHYSICIAN] - 1 Week [facility], [NON-STAFF] - As Needed Ambulatory/Diagnostic Orders: Basic Metabolic Panel [LAB.AMB] Location: None Selected C Reactive Protein [LAB.AMB] Location: None Selected Complete Blood Count w/diff [LAB.AMB] Location: None Selected Erythrocyte Sedimentation Rate [LAB.AMB] Location: None Selected Discharge Disposition: HOME WITH HOME HEALTH SERVICES
== END 2024-04-10 14:55 | disposition home health service (06) | DRG 853 ==
LOC: EC 19:36 → 4SSUR 21:43
PROVIDERS: ADMIT Hospitalist; ATTEND Hospitalist
PROC: 0JBQ0ZZ Excision of Right Foot Subcutaneous Tissue and Fascia, Open Approach (ICD-10-PCS; principal; 2024-04-01)
PROC: 3E1M39Z Irrigation of Peritoneal Cavity using Dialysate, Percutaneous Approach (ICD-10-PCS; 2024-04-01)
PROC: 0JBQ0ZZ Excision of Right Foot Subcutaneous Tissue and Fascia, Open Approach (ICD-10-PCS; 2024-04-05)
PROC: 0Y9M0ZZ Drainage of Right Foot, Open Approach (ICD-10-PCS; 2024-04-05)
PROC: 02HV33Z Insertion of Infusion Device into Superior Vena Cava, Percutaneous Approach (ICD-10-PCS; 2024-04-10)
DX: A41.02 Sepsis due to Methicillin resistant Staphylococcus aureus (principal); N18.6 End stage renal disease; E11.52 Type 2 diabetes mellitus with diabetic peripheral angiopathy with gangrene; I13.2 Hypertensive heart and chronic kidney disease with heart failure and with stage 5 chronic kidney disease, or end stage renal disease; I50.22 Chronic systolic (congestive) heart failure; J44.1 Chronic obstructive pulmonary disease with (acute) exacerbation; L97.515 Non-pressure chronic ulcer of other part of right foot with muscle involvement without evidence of necrosis; I70.261 Atherosclerosis of native arteries of extremities with gangrene, right leg; E11.621 Type 2 diabetes mellitus with foot ulcer; E11.22 Type 2 diabetes mellitus with diabetic chronic kidney disease; Z89.421 Acquired absence of other right toe(s); Z99.2 Dependence on renal dialysis; Z89.612 Acquired absence of left leg above knee; E11.42 Type 2 diabetes mellitus with diabetic polyneuropathy; E11.65 Type 2 diabetes mellitus with hyperglycemia; Z97.14 Presence of artificial left leg (complete) (partial); Z79.4 Long term (current) use of insulin; Z79.02 Long term (current) use of antithrombotics/antiplatelets; D63.1 Anemia in chronic kidney disease; F32.A Depression, unspecified; Z99.81 Dependence on supplemental oxygen; E66.9 Obesity, unspecified; L84 Corns and callosities; G47.33 Obstructive sleep apnea (adult) (pediatric); I25.10 Atherosclerotic heart disease of native coronary artery without angina pectoris; E78.5 Hyperlipidemia, unspecified; M89.8X9 Other specified disorders of bone, unspecified site; F17.210 Nicotine dependence, cigarettes, uncomplicated; B96.4 Proteus (mirabilis) (morganii) as the cause of diseases classified elsewhere; N40.0 Benign prostatic hyperplasia without lower urinary tract symptoms; F41.9 Anxiety disorder, unspecified; B96.1 Klebsiella pneumoniae [K. pneumoniae] as the cause of diseases classified elsewhere; Z68.38 Body mass index [BMI] 38.0-38.9, adult; Z95.5 Presence of coronary angioplasty implant and graft; I25.2 Old myocardial infarction; Z86.14 Personal history of Methicillin resistant Staphylococcus aureus infection; Z79.899 Other long term (current) drug therapy; Z79.82 Long term (current) use of aspirin; Z88.5 Allergy status to narcotic agent
CPT/HCPCS: 36415; 36573; 71046; 80053; 80202; 83036; 83605; 83735; 83880; 84100; 84484; 85025; 85610; 85730; 86140; 87040; 87070; 87075; 87077; 87186; 87205; 89050; 93005; 94760; 96361; 96365; 96366; 96367; 96368; 96372; 96375; 96376; 99291

== ENCOUNTER 2024-04-11 19:54 | Inpatient (IN) | payer MEDICARE ==
[2024-04-11] MEDS: NITROGLYCERIN SL TABS 0.4 MG TAB SUBLINGUAL PRN (20:30)
--- NOTE | 2024-04-11 20:41 | ED ---
General Adult HPI - General Chief complaint: Shortness of Breath Stated complaint: SOB Time Seen by Provider: 04/11/24 20:19 Source: patient, EMS Mode of arrival: EMS Limitations: no limitations - History of Present Illness Initial comments: History limited by acuity of condition. Patient is a 58-year-old male male past medical history ESRD on peritoneal dialysis, COPD, recent admission for approximately 1 week for right lower extremity wound, status post wound VAC placement presenting today for sudden onset shortness of breath. Per patient's at bedside, patient did not have the fluid pulled from his peritoneal dialysis run 2 days ago when he was discharged from the hospital and did not run his dialysis last night. Patient is on torsemide at home. Denies chest pain. - Related Data Home Medications Medication Instructions Recorded Confirmed Tamsulosin [Flomax] 0.4 mg PO DAILY 04/14/18 03/31/24 Albuterol Inhaler [Ventolin Hfa 1 - 2 puff INHALATION RT-Q6H PRN 03/09/19 03/31/24 Inhaler] Isosorbide Mononitrate ER [Imdur] 60 mg PO DAILY 03/11/22 03/31/24 Pantoprazole [Protonix] 80 mg PO HS 03/11/22 03/31/24 oxyCODONE-APAP 10-325MG [Percocet 1 tab PO Q6H PRN 03/11/22 03/31/24 10-325 mg] FLUoxetine HCL [PROzac] 40 mg PO BID 09/11/23 03/31/24 Gabapentin [Neurontin] 400 mg PO HS 09/11/23 03/31/24 Insulin NPH/Reg Insulin 70/30 1 - 100 unit SQ AC-TID 09/11/23 03/31/24 [humuLIN 70/30 VIAL] Aspirin EC [Ecotrin Low Dose] 81 mg PO HS 12/16/23 03/31/24 Loratadine 10 mg PO HS 12/16/23 03/31/24 Nitroglycerin Sl Tabs [Nitrostat] 0.4 mg SL Q5M PRN 12/16/23 03/31/24 Torsemide [Demadex] 20 mg PO BID 12/16/23 03/31/24 allopurinoL [Zyloprim] 100 mg PO DAILY 12/16/23 03/31/24 Previous Rx's Medication Instructions Recorded amLODIPine [Norvasc] 5 mg PO BID #60 tab 09/12/23 Atorvastatin [Lipitor] 40 mg PO HS #30 tab 12/25/23 Metoprolol Succinate (ER) [Toprol 100 mg PO DAILY #30 tab 12/25/23 XL] Ticagrelor [Brilinta] 90 mg PO BID #180 tab 03/10/24 Psyllium Husk 100% [Metamucil 6 gm PO DAILY packet 04/10/24 Packet] hydrALAZINE HCL [Apresoline] 50 mg PO BID #60 tab 04/10/24 Allergies Allergy/AdvReac Type Severity Reaction Status Date / Time codeine AdvReac headache, Verified 03/31/24 08:56 DIZZY, N/V hydrocodone [From Vicodin] AdvReac Nausea & Verified 03/31/24 08:56 Vomiting tramadol AdvReac Nausea & Verified 03/31/24 08:56 Vomiting Review of Systems ROS Statement: Those systems with pertinent positive or pertinent negative responses have been documented in the HPI. Limitations: ROS unobtainable due to patients medical condition Past Medical History Past Medical History: Coronary Artery Disease (CAD), Heart Failure, COPD, Diabetes Mellitus, Eye Disorder, GERD/Reflux, Hyperlipidemia, Hypertension, Myocardial Infarction (NM), Osteoarthritis (OA), Renal Disease, Respiratory Disorder, Sleep Apnea/CPAP/BIPAP, Vascular Disorder Additional Past Medical History / Comment(s): Poor circulation in hands and legs/feet. 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 does not wear cpap Last Myocardial Infarction Date:: 2014 History of Any Multi-Drug Resistant Organisms: MRSA Date of last positivie culture/infection: approx 2015 MDRO Source:: right foot Past Surgical History: Heart Catheterization With Stent, Hernia Repair, Tonsillectomy Additional Past Surgical History / Comment(s): Right foot 3rd and 4th AND 5TH toes and area of foot amputated, cyst on scrotum removed. partial amp lt foot but had non healing wound which resulted in lt bka. matilde cataracts removed-has lens implants. x3 rt inguinal hernia sx and an umb hernia repair. BELOW KNEE AMPUTATION , COLONOSCOPY Stent LADx1 03/09/2024-(R) Groin manual pull Past Anesthesia/Blood Transfusion Reactions: No Reported Reaction Additional Past Anesthesia/Blood Transfusion Reaction / Comment(s): States he w as in the ICU after his surgery on his toes, but does not know why. Date of Last Stent Placement:: 05/2015 APPROX Past Psychological History: Anxiety, Depression, Panic Disorder Smoking Status: Current some day smoker - Past Family History Father History Unknown: Yes Mother History Unknown: Yes Family Medical History: Cancer, Coronary Artery Disease (CAD) Additional Family Medical History / Comment(s): benign Brain tumor, Berhane syndrome Sister(s) Family Medical History: No Reported History General Exam - General Exam Comments Initial Comments: PE: CONSTITUTIONAL: Ill-appearing, in acute distress, tachypneic, increased work of breathing, somewhat lethargic SKIN: Warm, dry, no jaundice, hives or petechiae EYES: Pupils are equally round, extraocular movements intact without nystagmus, clear conjunctiva, non-icteric sclera HENT: Normocephalic, atraumatic, moist mucus membranes, oropharynx clear without exudates NECK: , Full range of motion, normal appearance PULMONARY: Tachypnea, accessory muscle use, decreased breath sounds throughout, scant rales in lower lung townsend, no wheezes CARDIOVASCULAR: Regular rate, rhythm, normal S1 and S2. No appreciated murmurs, rubs or gallops. Strong radial pulses with intact distal perfusion.1+ LLE pretibial pitting edema GASTROINTESTINAL: Soft, active bowel sounds throughout, non-tender, non- distended, no palpable masses, no rebound or guarding. No hepatosplenomegaly GENITOURINARY: MUSCULOSKELETAL: Extremities have no gross deformity, redness, or swelling. Left AKA, right foot is post 1st metarsal removal, also post 2nd,3re,d 4th, 5th, metatarsal removal, clean dry dressing in place, wound vac, no surrounding erythema or discharge NEUROLOGIC:_Calm and cooperative, thought process is slowed, but linear Limitations: no limitations Course Vital Signs 04/11/24 04/11/24 04/11/24 20:14 20:21 20:38 Temperature 97.5 F L Pulse Rate 87 78 Respiratory 26 H 26 H Rate Blood Pressure 155/73 O2 Sat by Pulse 92 L 96 Oximetry Fraction of 100 Inspired Oxygen (FIO2) 04/11/24 04/11/24 04/11/24 21:05 23:12 23:30 Temperature Pulse Rate 82 Respiratory 20 Rate Blood Pressure 165/63 O2 Sat by Pulse 93 L Oximetry Fraction of 40 40 Inspired Oxygen (FIO2) - Reevaluation(s) Reevaluation #1: Patient appears much improved on BiPAP, coloring is better, he is more alert, also received 1 sublingual sublingual nitroglycerin systolic pressure 158. 04/11/24 20:45 Reevaluation #2: Discussed with Dr. Braswell, kindly agreed to order peritoneal dialysis orders with fluid to pull of as much fluid as possible. ABG completed, pH 7.4, pCO2 47.6, pO2 370, hemoglobin 7.3, compared to most recent on 04/04 was 7.1 04/11/24 21:08 04/11/24 21:09 EKG Findings - EKG Comments: EKG Findings:: Sinus rhythm, artifact present throughout, rate 85 bpm, CA interval 151 ms, QRS duration 106 ms, QT/QTc 405/447 ms, normal axis, no ST elevations or depressions present Medical Decision Making - Medical Decision Making Was pt. sent in by a medical professional or institution (, PA, HEALTHCARE RECRUITER, urgent care, hospital, or snf...) When possible be specific @ -No Did you speak to anyone other than the patient for history (EMS, parent, family, police, friend...)? What history was obtained from this source @ assisted in providing hx Did you review nursing and triage notes (agree or disagree)? Why? @ -I reviewed and agree with nursing and triage notes Were old charts reviewed (outside hosp., previous admission, EMS record, old EKG, old radiological studies, urgent care reports/EKG's, snf records)? Report findings @ -Reviewed patient's recent surgical summary and discharge summary from recent hospitalization Differential Diagnosis (chest pain, altered mental status, abdominal pain women, abdominal pain men, vaginal bleeding, weakness, fever, dyspnea, syncope, headache, dizziness, GI bleed, back pain, seizure, CVA, palpatations, mental health, musculoskeletal)? @Differential Dyspnea: Coronary syndrome, arrhythmia, tamponade, COPD, pulmonary edema/CHF/ hypertensive emergency/flash pulmonary edema pneumonia, pneumothorax, pulmonary effusion, anemia this is not meant to be an all-inclusive list. EKG interpreted by me (3pts min.). @ -As above X-rays interpreted by me (1pt min.). @ -Bilateral pleural effusions and pulmonary edema cardiomegaly CT interpreted by me (1pt min.). @ -None done U/S interpreted by me (1pt. min.). @ -None done What testing was considered but not performed or refused? (CT, X-rays, U/S, labs)? Why? @ -None What meds were considered but not given or refused? Why? @ -None Did you discuss the management of the patient with other professionals (professionals i.e. Dr., PA, HEALTHCARE RECRUITER, lab, RT, psych nurse, psychologist social, armature connector, teacher, corporate banking officer, case aide)? Give summary @Patient was discussed with Dr. Ward, nepology, who will kindly arrange for peritoneal dialysis Was smoking cessation discussed for >3mins.? @ -No Was critical care preformed (if so, how long)? @Yes, 45 minutes Were there social determinants of health that impacted care today? How? (Homelessness, low income, unemployed, alcoholism, drug addiction, transportation, low edu. Level, literacy, decrease access to med. care, prison, rehab)? @ -No Was there de-escalation of care discussed even if they declined (Discuss DNR or withdrawal of care, Hospice)? @ -No What co-morbidities impacted this encounter? (DM, HTN, Smoking, COPD, CAD, Cancer, CVA, ARF, Chemo, Hep., AIDS, mental health diagnosis, sleep apnea, morbid obesity)? @ESRD on peritoneal dialysis, COPD, diabetes, prior NM Was patient admitted / discharged? Hospital course, mention meds given and route, prescriptions, significant lab abnormalities, going to OR and other pertinent info. @ -admission -patient is a 58 gentleman history COPD, end-stage renal disease on peritoneal dialysis, recent admission presenting today for sudden onset shortness of breath. Hypoxic in triage into 70s, wears 3L home O2, Blood p ressure on arrival 178 systolic, patient is tachypneic,intermittently lethargic, on 6L NC, rales in lower lung townsend. Missed 2 rounds of dialysis. Portable chest x-ray immediately ordered and assessed, shows pulmonary edema/increased lung markings bilateral lung townsend, cardiomegaly. Called RT who kindly reported bedside, applied BiPAP, repeat ABG ordered. Highly suspect flash pulmonary edema 2/2 hypertensive vs pulmonary edema 2/2 decreased fluid removal. ABG showed pH 7.408, pCO2 47, pO2 371, hemoglobin 7.3. On reassessment patient appears much more comfortable on bipap, after SL nitr oglcycerin work of breathing improved, alert, able to converse. Lab significant for magnesium 1.2. Ordered IV and oral replacement. Mild leukocytosis, WBC count 13.1, patient has no surrounding erythema around his wound vac, bandage is clean and dry. Updated patient and family at bedside to plan for admission and peritoneal dialysis. They are agreeable with POC. Discussed case with Dr. Paz, kindly accepts for admission. Requests 1200cc fluid restriction, consult to Dr. Denton. Patient admitted in stable condition. Undiagnosed new problem with uncertain prognosis? @ -No Drug Therapy requiring intensive monitoring for toxicity (Heparin, Nitro, Insulin, Cardizem)? @ -No Were any procedures done? @ -No Diagnosis/symptom? @ -Acute on chronic respiratory failure secondary to fluid overload, CHF Acute, or Chronic, or Acute on Chronic? @ -Acute on chronic Uncomplicated (without systemic symptoms) or Complicated (systemic symptoms)? @Complicated Side effects of treatment? @ -No Exacerbation, Progression, or Severe Exacerbation? @Exacerbation Poses a threat to life or bodily function? How? (Chest pain, USA, NM, pneumonia, PE, COPD, DKA, ARF, appy, cholecystitis, CVA, Diverticulitis, Homicidal, Suicidal, threat to staff... and all critical care pts) @Yes - Lab Data Result diagrams: 04/11/24 21:30 04/11/24 21:30 Lab Results 04/11/24 04/11/24 04/11/24 Range/Units 21:00 21:30 21:30 WBC 13.1 H (3.8-10.6) k/uL RBC 2.58 L (4.30-5.90) m/uL Hgb 7.2 L (13.0-17.5) gm/dL Hct 22.6 L (39.0-53.0) % MCV 87.9 (80.0-100.0) fL MCH 27.8 (25.0-35.0) pg MCHC 31.6 (31.0-37.0) g/dL RDW 14.6 (11.5-15.5) % Plt Count 394 (150-450) k/uL MPV 8.0 Neutrophils % 87 % Lymphocytes % 9 % Monocytes % 3 % Eosinophils % 1 % Basophils % 0 % Neutrophils # 11.4 H (1.3-7.7) k/uL Lymphocytes # 1.1 (1.0-4.8) k/uL Monocytes # 0.4 (0-1.0) k/uL Eosinophils # 0.1 (0-0.7) k/uL Basophils # 0.0 (0-0.2) k/uL Hypochromasia Slight PT 11.5 (10.0-12.5) sec INR 1.1 (<1.2) APTT 27.4 (22.0-30.0) sec Sample Site lbrac ABG pH 7.41 (7.35-7.45) ABG pCO2 48 H (35-45) mmHg ABG pO2 371 H (83-108) mmHg ABG HCO3 30 H (21-25) mmol/L ABG Total CO2 32 H (19-24) mmol/L ABG O2 Saturation 100.0 H (94-97) % ABG Base Excess 4.8 mmol/L Senthil Test Yes Hemoglobin 7.3 L (13.0-17.5) gm/dL FiO2 100 % Sodium (137-145) mmol/L Potassium (3.5-5.1) mmol/L Chloride (98-107) mmol/L Carbon Dioxide (22-30) mmol/L Anion Gap mmol/L BUN (9-20) mg/dL Creatinine (0.66-1.25) mg/dL Est GFR (CKD-EPI)AfAm (>60 ml/min/1.73 sqM) Est GFR (CKD-EPI)NonAf (>60 ml/min/1.73 sqM) Glucose (74-99) mg/dL Calcium (8.4-10.2) mg/dL Magnesium (1.6-2.3) mg/dL Total Bilirubin (0.2-1.3) mg/dL AST (17-59) U/L ALT (4-49) U/L Alkaline Phosphatase (38-126) U/L Troponin I (0.000-0.034) ng/mL NT-Pro-B Natriuret Pep pg/mL Total Protein (6.3-8.2) g/dL Albumin (3.5-5.0) g/dL 04/11/24 04/11/24 Range/Units 21:30 21:30 WBC (3.8-10.6) k/uL RBC (4.30-5.90) m/uL Hgb (13.0-17.5) gm/dL Hct (39.0-53.0) % MCV (80.0-100.0) fL MCH (25.0-35.0) pg MCHC (31.0-37.0) g/dL RDW (11.5-15.5) % Plt Count (150-450) k/uL MPV Neutrophils % % Lymphocytes % % Monocytes % % Eosinophils % % Basophils % % Neutrophils # (1.3-7.7) k/uL Lymphocytes # (1.0-4.8) k/uL Monocytes # (0-1.0) k/uL Eosinophils # (0-0.7) k/uL Basophils # (0-0.2) k/uL Hypochromasia PT (10.0-12.5) sec INR (<1.2) APTT (22.0-30.0) sec Sample Site ABG pH (7.35-7.45) ABG pCO2 (35-45) mmHg ABG pO2 (83-108) mmHg ABG HCO3 (21-25) mmol/L ABG Total CO2 (19-24) mmol/L ABG O2 Saturation (94-97) % ABG Base Excess mmol/L Senthil Test Hemoglobin (13.0-17.5) gm/dL FiO2 % Sodium 140 (137-145) mmol/L Potassium 3.6 (3.5-5.1) mmol/L Chloride 108 H (98-107) mmol/L Carbon Dioxide 29 (22-30) mmol/L Anion Gap 3 mmol/L BUN 41 H (9-20) mg/dL Creatinine 2.71 H (0.66-1.25) mg/dL Est GFR (CKD-EPI)AfAm 28 (>60 ml/min/1.73 sqM) Est GFR (CKD-EPI)NonAf 25 (>60 ml/min/1.73 sqM) Glucose 179 H (74-99) mg/dL Calcium 8.1 L (8.4-10.2) mg/dL Magnesium 1.2 L (1.6-2.3) mg/dL Total Bilirubin 0.5 (0.2-1.3) mg/dL AST 21 (17-59) U/L ALT 22 (4-49) U/L Alkaline Phosphatase 154 H (38-126) U/L Troponin I 0.016 (0.000-0.034) ng/mL NT-Pro-B Natriuret Pep 25413 pg/mL Total Protein 6.5 (6.3-8.2) g/dL Albumin 2.9 L (3.5-5.0) g/dL Disposition Clinical Impression: Acute pulmonary edema, Congestive heart failure, Acute hypoxic respiratory failure Disposition: ADMITTED IP TO THIS HOSP Condition: Stable
[2024-04-11 21:03] LABS: ABG Base Excess 4.8 mmol/L; ABG HCO3 30 mmol/L (21-25); ABG PCO2 48 mmHg (35-45); ABG PH 7.41 (7.35-7.45); ABG PO2 371 mmHg (83-108); ABG TCO2 32 mmol/L (19-24); Allen Test Performed? Yes
--- NOTE | 2024-04-11 21:22 | XR ---
EXAM: XR chest 1V portable CLINICAL INDICATION:Male, 58 years old with history of Short of breath; [facility] COMPARISON: 03/30/2024 TECHNIQUE: Chest single view. FINDINGS: Compared to the prior study, cardiomegaly is redemonstrated. There has been interval placement of a r ight arm PICC with tip over the RA. Central pulmonary vascular congestion and diffuse interstitial pr ominence suggesting edema, increased from previous. No confluent consolidation, large effusion, or ev idence of pneumothorax. Small pleural effusions Osseous structures appear grossly unchanged. IMPRESSION: Cardiomegaly with findings suggesting mild/moderate CHF, correlate clinically. [facility], , 04/11/2024 9:19 PM
[2024-04-11 21:56] LABS: Basophils % (A) 0 %; Eosinophils # (A) 0.1 k/uL (0-0.7); Eosinophils % (A) 1 %; HCT 22.6 % (39.0-53.0); HGB 7.2 gm/dL (13.0-17.5); Hypochromasia Slight; Lymphocytes # (A) 1.1 k/uL (1.0-4.8); Lymphocytes % (A) 9 %; MCH 27.8 pg (25.0-35.0); MCHC 31.6 g/dL (31.0-37.0); MCV 87.9 fL (80.0-100.0); Monocytes # (A) 0.4 k/uL (0-1.0); Monocytes % (A) 3 %; Neutrophils # (A) 11.4 k/uL (1.3-7.7); Neutrophils % (A) 87 %; Platelet Count 394 k/uL (150-450); RBC 2.58 m/uL (4.30-5.90); RDW 14.6 % (11.5-15.5); WBC 13.1 k/uL (3.8-10.6)
[2024-04-11 22:04] LABS: ALT 22 U/L (4-49); AST 21 U/L (17-59); African American GFR (CKD) 28 (>60 ml/min/1.73 sqM); Albumin 2.9 g/dL (3.5-5.0); Alkaline Phosphatase 154 U/L (38-126); Anion Gap 3 mmol/L; Blood Urea Nitrogen 41 mg/dL (9-20); Calcium 8.1 mg/dL (8.4-10.2); Carbon Dioxide 29 mmol/L (22-30); Chloride 108 mmol/L (98-107); Glucose 179 mg/dL (74-99); Magnesium 1.2 mg/dL (1.6-2.3); Non-African American GFR(CKD) 25 (>60 ml/min/1.73 sqM); Potassium 3.6 mmol/L (3.5-5.1); Sodium 140 mmol/L (137-145); Total Bilirubin 0.5 mg/dL (0.2-1.3); Total Protein 6.5 g/dL (6.3-8.2)
[2024-04-11 22:06] LABS: INR 1.1 (<1.2); Partial Thromboplastin Time 27.4 sec (22.0-30.0); Prothrombin Time 11.5 sec (10.0-12.5)
[2024-04-11 22:12] LABS: NT-Pro-B-Type Natriuretic Pept 14600 pg/mL
[2024-04-11] MEDS ORDERED: NALOXONE 0.4 MG/ML 1 ML VIAL IV PRN (22:25)
[2024-04-11] MEDS ORDERED: ACETAMINOPHEN TAB 325 MG TAB PO PRN (22:28)
[2024-04-11] MEDS ORDERED: LORazepam 0.5 MG TAB PO PRN (22:28)
[2024-04-11] MEDS ORDERED: NITROGLYCERIN SL TABS 0.4 MG TAB SUBLINGUAL PRN (22:29)
[2024-04-11] MEDS: FUROSEMIDE 10 MG/ML 4 ML VIAL IV STA (22:56)
[2024-04-11] MEDS: TORSEMIDE 20 MG TAB PO SCH (23:21)
[2024-04-11] MEDS: FUROSEMIDE 10 MG/ML 10 ML VIAL IV SCH (23:25)
[2024-04-11] MEDS: HYDROmorphone 1 MG/ML 1 ML SYRINGE IVP STA (23:48)
[2024-04-11] MEDS: amLODIPine 5 MG TAB PO SCH (23:49)
[2024-04-11] MEDS: GABAPENTIN 400 MG CAP PO SCH (23:50)
[2024-04-11] MEDS: MAGNESIUM OXIDE 400 MG TAB PO STA (23:50)
[2024-04-11] MEDS: hydrALAZINE HCL 50 MG TAB PO SCH (23:50)
[2024-04-11] MEDS: ASPIRIN 81 MG PO SCH (23:50)
[2024-04-11] MEDS: PANTOPRAZOLE 40 MG TABLET PO SCH (23:50)
[2024-04-11] MEDS: ATORVASTATIN 40 MG TAB PO SCH (23:50)
[2024-04-11] MEDS: LORATADINE 10 MG TAB PO SCH (23:51)
[2024-04-11] MEDS: MAGNESIUM SULFATE-D5W PMX 1 GM in DEXTROSE/WATER 1 100ML.BAG IVPB SCH (23:51)
[2024-04-11] MEDS: TICAGRELOR 90 MG TAB PO SCH (23:54)
[2024-04-12 01:19] LABS: Glucose,Whole Blood 222 mg/dL (70-110)
[2024-04-12] MEDS: DIALYSIS (PERIT 4.25%) 2000 ML 85 G/2,000 ML BAG INTRAPERIT SCH (01:56)
[2024-04-12 05:55] LABS: Glucose,Whole Blood 324 mg/dL (70-110)
[2024-04-12] MEDS: ALBUTEROL NEBULIZED 2.5 MG/3 ML INHALATION PRN (07:46)
[2024-04-12] MEDS: allopurinoL 100 MG TAB PO SCH (08:58)
[2024-04-12] MEDS: METOPROLOL SUCCINATE (ER) 100 MG TAB.ER.24H PO SCH (08:58)
[2024-04-12] MEDS: ISOSORBIDE MONONITRATE ER 60 MG TAB.ER.24H PO SCH (08:58)
[2024-04-12] MEDS: TAMSULOSIN 0.4 MG CAP.ER.24H PO SCH (08:58)
[2024-04-12] MEDS: PSYLLIUM HUSK 100% 6 GM PACKET PO SCH (08:59)
[2024-04-12] MEDS: HYDROmorphone 0.5 MG/0.5 ML SYRINGE IVP STA (09:00)
[2024-04-12 09:35] LABS: Glucose,Whole Blood 403 mg/dL (70-110)
--- NOTE | 2024-04-12 09:55 | P.NPCON ---
History of Present Illness - Reason for Consult end stage renal disease - History of Present Illness Reason for consultation: End-stage renal disease History of present illness: Patient is a 58-year-old male seen in renal consultation for end-stage renal disease. He is maintained on peritoneal dialysis. Patient was recently admitted at this facility and was just discharged home about 2 days ago. He was admitted for right foot wound for which she underwent debridement and received IV antibiotics. Patient received PICC line values in the hospital and was to continue antibiotics outpatient. Patient states he did not do his dialysis when he got home because he wanted a break. Patient subsequently became short of breath and came to the hospital. Peritoneal dialysis was resumed. He was initially on BiPAP and is currently on a nasal cannula. He denies chest pain. He makes little urine and is receiving IV Lasix. He feels nauseous. Patient has history of coronary artery disease with cardiac stents. Patient also has longstanding history of diabetes. No fever. Denies any problems with PD exchanges. Fluid is clear. Vital signs are stable. General: No acute distress. HEENT: Head exam is unremarkable. On nasal cannula. LUNGS: No audible rhonchi or wheezes. HEART: Rate and Rhythm are regular. ABDOMEN: Nontender. Obese. EXTREMITITES: BKA noted. Trace edema. Wound VAC noted. Past Medical History Past Medical History: Coronary Artery Disease (CAD), Heart Failure, COPD, Diabetes Mellitus, Eye Disorder, GERD/Reflux, Hyperlipidemia, Hypertension, Myocardial Infarction (MA), Osteoarthritis (OA), Renal Disease, Respiratory Disorder, Sleep Apnea/CPAP/BIPAP, Vascular Disorder Additional Past Medical History / Comment(s): Poor circulation in hands and legs/feet. 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 does not wear cpap Last Myocardial Infarction Date:: 2014 History of Any Multi-Drug Resistant Organisms: MRSA Date of last positivie culture/infection: approx 2016 MDRO Source:: right foot Past Surgical History: Heart Catheterization With Stent, Hernia Repair, Tonsillectomy Additional Past Surgical History / Comment(s): Right foot 3rd and 4th AND 5TH toes and area of foot amputated, cyst on scrotum removed. partial amp lt foot but had non healing wound which resulted in lt bka. matilde cataracts removed-has lens implants. x3 rt inguinal hernia sx and an umb hernia repair. BELOW KNEE AMPUTATION , COLONOSCOPY Stent LADx1 03/09/2024-(R) Groin manual pull Past Anesthesia/Blood Transfusion Reactions: No Reported Reaction Additional Past Anesthesia/Blood Transfusion Reaction / Comment(s): States he was in the ICU after his surgery on his toes, but does not know why. Date of Last Stent Placement:: 05/2015 APPROX Past Psychological History: Anxiety, Depression, Panic Disorder Smoking Status: Current some day smoker - Past Family History Father History Unknown: Yes Mother History Unknown: Yes Family Medical History: Cancer, Coronary Artery Disease (CAD) Additional Family Medical History / Comment(s): benign Brain tumor, Hymera syndrome Sister(s) Family Medical History: No Reported History Medications and Allergies Home Medications Medication Instructions Recorded Confirmed Type Tamsulosin [Flomax] 0.4 mg PO DAILY 04/14/18 04/12/24 History Albuterol Inhaler [Ventolin Hfa 1 - 2 puff INHALATION RT-Q6H PRN 03/09/19 04/12/24 History Inhaler] Isosorbide Mononitrate ER [Imdur] 60 mg PO DAILY 03/11/22 04/12/24 History Pantoprazole [Protonix] 80 mg PO HS 03/11/22 04/12/24 History oxyCODONE-APAP 10-325MG [Percocet 1 tab PO Q6H PRN 03/11/22 04/12/24 History 10-325 mg] FLUoxetine HCL [PROzac] 40 mg PO BID 09/11/23 04/12/24 History Gabapentin [Neurontin] 400 mg PO HS 09/11/23 04/12/24 History Insulin NPH/Reg Insulin 70/30 See Protocol SQ AC-TID 09/11/23 04/12/24 History [humuLIN 70/30 VIAL] amLODIPine [Norvasc] 5 mg PO BID #60 tab 09/12/23 04/12/24 Rx Aspirin EC [Ecotrin Low Dose] 81 mg PO HS 12/16/23 04/12/24 History Loratadine 10 mg PO HS 12/16/23 04/12/24 History Nitroglycerin Sl Tabs [Nitrostat] 0.4 mg SL Q5M PRN 12/16/23 04/12/24 History Torsemide [Demadex] 20 mg PO BID 12/16/23 04/12/24 History allopurinoL [Zyloprim] 100 mg PO DAILY 12/16/23 04/12/24 History Atorvastatin [Lipitor] 40 mg PO HS #30 tab 12/25/23 04/12/24 Rx Metoprolol Succinate (ER) [Toprol 100 mg PO DAILY #30 tab 12/25/23 04/12/24 Rx XL] Ticagrelor [Brilinta] 90 mg PO BID #180 tab 03/10/24 04/12/24 Rx Psyllium Husk 100% [Metamucil 6 gm PO DAILY packet 04/10/24 04/12/24 Rx Packet] hydrALAZINE HCL [Apresoline] 50 mg PO BID #60 tab 04/10/24 04/12/24 Rx Allergies Allergy/AdvReac Type Severity Reaction Status Date / Time codeine AdvReac headache, Verified 04/12/24 08:38 DIZZY, N/V hydrocodone [From Vicodin] AdvReac Nausea & Verified 04/12/24 08:38 Vomiting tramadol AdvReac Nausea & Verified 04/12/24 08:38 Vomiting Physical Exam Vitals: Vital Signs Temp Pulse Pulse Resp BP BP Pulse Ox 04/12/24 08:00 87 04/12/24 07:48 83 04/12/24 07:39 04/12/24 06:58 77 18 166/79 97 04/12/24 06:00 97.6 F 78 18 170/81 97 04/12/24 04:10 04/12/24 03:15 98.0 F 80 18 170/65 99 04/12/24 02:00 80 18 04/12/24 01:20 98.0 F 79 18 145/76 98 04/12/24 00:26 98.9 F 84 21 156/80 94 L 04/11/24 23:30 04/11/24 23:25 04/11/24 23:12 82 20 165/63 93 L 04/11/24 21:05 04/11/24 20:38 04/11/24 20:21 78 26 H 155/73 96 04/11/24 20:14 97.5 F L 87 26 H 92 L FiO2 04/12/24 08:00 04/12/24 07:48 04/12/24 07:39 40 04/12/24 06:58 40 04/12/24 06:00 04/12/24 04:10 40 04/12/24 03:15 40 04/12/24 02:00 04/12/24 01:20 04/12/24 00:26 04/11/24 23:30 40 04/11/24 23:25 40 04/11/24 23:12 04/11/24 21:05 40 04/11/24 20:38 100 04/11/24 20:21 04/11/24 20:14 Intake and Output 04/11/24 04/12/24 04/12/24 22:59 06:59 14:59 Intake Total 540 Output Total 450 Balance 90 Intake: Oral 540 Output: Urine 450 Other: Voiding Method Urinal Weight 117.934 kg 127 kg Results - Lab Results Most recent lab results ABG pH 7.41 (7.35-7.45) 04/11/24 21:00 ABG pCO2 48 mmHg (35-45) H 04/11/24 21:00 ABG pO2 371 mmHg (83-108) H 04/11/24 21:00 ABG HCO3 30 mmol/L (21-25) H 04/11/24 21:00 ABG O2 Saturation 100.0 % (94-97) H 04/11/24 21:00 Calcium 8.1 mg/dL (8.4-10.2) L 04/11/24 21:30 Magnesium 1.2 mg/dL (1.6-2.3) L 04/11/24 21:30 04/11/24 21:30 04/11/24 21:30 Assessment and Plan Plan: Assessment: 1. End-stage renal disease maintained on peritoneal dialysis. 2. Noncompliance with peritoneal dialysis. 3. Acute hypoxic respiratory failure secondary to volume overload. 4. Right foot wound status post debridement with wound VAC. On IV antibiotics. 5. Diabetes mellitus. 6. Coronary disease with cardiac stents. 7. Hypertension with chronic kidney disease. 8. Anemia of chronic kidney disease. 9. Hypomagnesemia from diuresis. Replaced. Plan: Maintain PD exchanges with 2 L every 4 hours with 4.25% solution to maximize ultrafiltration. Maintain IV Lasix. Check iron studies. Add Aranesp. Check phosphorus level. Home antihypertensives resumed. Thank you for the consultation. I will continue to follow the patient with you during his hospital stay.
[2024-04-12] MEDS: DARBEPOETIN ALFA 40 MCG/0.4 ML SYRINGE SQ SCH (10:42)
[2024-04-12 11:37] LABS: Phosphorus 3.8 mg/dL (2.5-4.5)
[2024-04-12 12:00] LABS: Glucose,Whole Blood 439 mg/dL (70-110)
[2024-04-12] MEDS: INSULN ASP PRT/INSULIN ASPART 100 UNIT/ML 10 ML VIAL SQ SCH ×2 (12:12→16:56)
[2024-04-12] MEDS: INSULIN ASPART (NovoLOG) 100 UNIT/ML VIAL SQ ONE (12:12)
[2024-04-12 14:01] LABS: African American GFR (CKD) 31 (>60 ml/min/1.73 sqM); Anion Gap 4 mmol/L; Blood Urea Nitrogen 41 mg/dL (9-20); Carbon Dioxide 28 mmol/L (22-30); Chloride 104 mmol/L (98-107); Glucose 387 mg/dL (74-99); Magnesium 1.5 mg/dL (1.6-2.3); Non-African American GFR(CKD) 26 (>60 ml/min/1.73 sqM); Potassium 3.9 mmol/L (3.5-5.1); Sodium 136 mmol/L (137-145)
[2024-04-12] MEDS: oxyCODONE-APAP 10-325MG 1 EACH TAB PO PRN (14:02)
--- NOTE | 2024-04-12 15:18 | P.HPIM ---
History of Present Illness H&P Date: 04/11/24 Chief Complaint: Short of breath Pleasant 58-year-old patient follows with Dr. Harris. Chronic stable medical conditions include CAD, COPD, diabetes, GERD, hyperlipidemia, hypertension, end-stage kidney disease with hemodialysis, obstructive sleep apnea, PAD, left foot BKA with the prosthesis, home oxygen 2.5 L at night. CAD with stent right foot second, third fourth and fifth toe amputated. Patient is on peritoneal dialysis. Patient follows at the wound care, Dr. Denton Patient was recently in the hospital from March 31 through April 10. Patient had infected callus removed from the right foot. Subsequently started draining pus. Back to the OR for deep I&D. Deep tissue cultures positive for Proteus vulgaris. Patient to get a PICC line. Discharge on IV vancomycin and Rocephin. Patient is doing well when he got home. The previous night patient decided not to do his peritoneal dialysis. Nor was he able to take out his dialysate from the abdomen. Patient became short of breath brought to the ER. Had to be put on a BiPAP. Hypoxic. Nephrology was consulted and PD was ordered. When I came to see the patient patient is rather lethargic on the BiPAP Review of systems: Unable to obtain as patient lethargic Social history: Lives with his . Smokes about half a pack a day for many years-recently down to few cigarettes a day. No alcohol. Did use marijuana in the past. Physical examination: VITAL SIGNS: T7.5, 87, 26, 155/73, 96% on BiPAP GENERAL: Reclining in bed, lethargic short of breath EYES: Pupils equal. Conjunctiva julieta l. HEENT: External appearance of nose and ears normal, oral cavity grossly normal. NECK: JVD unable to assess; masses not palpable. HEART: First and second heart sounds are normal; edema present LUNGS:[ Respiratory rate-increased, decreased breath sounds some crackles ABDOMEN: Soft, nontender, liver spleen not palpable, no masses palpable. PSYCH: Lethargic MUSCULOSKELETAL: Left BKA. With prosthesis. Right foot second third and fourth toe amputated. Awaiting new wound VAC placement currently dressing in place INVESTIGATIONS, reviewed in the clinical context: April 11, 2024: White count 13.1 hemoglobin 7.2 platelets 394 sodium 140 potassium 3.6 BUN 41 creatinine 2.71 EKG tracing personally reviewed by me-normal sinus rhythm. ST-T wave changes Chest x-ray film personally reviewed by me-cardiomegaly, pulm edema From renal recent admission Deep wound cultures postsurgical showing Proteus vulgaris Assessment and plan: -Acute flash pulmonary edema secondary to patient not able to do his peritoneal dialysis, causing acute hypoxic respiratory failure For peritoneal dialysis. Nephrology consulted -Acute hypoxic respiratory failure secondary to pulm edema BiPAP -Sepsis secondary to right foot infection with chronic wound that is being followed at the wound care center. Is followed by Dr. Denton from vascular.: Initial wound cultures: Proteus vulgaris, Klebsiella oxytoca, MRSA Deep wound cultures postsurgical: Proteus vulgaris . IV ceftriaxone per ID, vancomycin-patient was discharged on the same Patient has a PICC line -Acute on chronic right foot wound which is being followed at wound care center., From underlying PAD Dr. Denton from vascular-carried out recent deep wound I&D right foot deep tissue cultures: Proteus vulgaris Wound VAC On IV vancomycin IV ceftriaxone Follow-up with Dr. Denton at the wound care center -Acute on chronic congestive heart failure exacerbation from systolic dysfunction EF 45%: Dialysis peritoneal. Demadex -End-stage kidney disease on peritoneal dialysis Nephrology following -Anemia of chronic kidney disease Aranesp -Essential hypertension Toprol-XL 100 mg a day. Amlodipine 5 mg twice daily. Hydralazine-50 mg twice daily -Diabetes mellitus type 2, chronically insulin, uncontrolled with hyperglycemia Follow Accu-Cheks with sliding scale insulin. NovoLog 70/30 18 units AC twice daily. 6 units with lunch. -BPH Flomax -Hyperlipidemia Lipitor 40mg nightly -Obesity BMI 38 Weight loss measures -Depression anxiety Prozac 40 mg twice daily -Diabetic peripheral neuropathy Neurontin 400 mg nightly -COPD in a current smoker inhalers -Chronic nicotine dependence cigarette smoker. Currently down to about 2 cigarettes a day Nicotine patch -Left below-knee amputation with a prosthesis. Right foot second third and fourth toe amputation. -Full code Care was discussed with patient's and patient's parents at the bedside. Nephrology consulted. Vascular consulted. Past Medical History Past Medical History: Coronary Artery Disease (CAD), Heart Failure, COPD, Diabetes Mellitus, Eye Disorder, GERD/Reflux, Hyperlipidemia, Hypertension, Myocardial Infarction ([place]), Osteoarthritis (OA), Renal Disease, Respiratory Disorder, Sleep Apnea/CPAP/BIPAP, Vascular Disorder Additional Past Medical History / Comment(s): Poor circulation in hands and legs/feet. 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 does not wear cpap Last Myocardial Infarction Date:: 2014 History of Any Multi-Drug Resistant Organisms: MRSA Date of last positivie culture/infection: approx 2015 MDRO Source:: right foot Past Surgical History: Heart Catheterization With Stent, Hernia Repair, Tonsillectomy Additional Past Surgical History / Comment(s): Right foot 3rd and 4th AND 5TH toes and area of foot amputated, cyst on scrotum removed. partial amp lt foot but had non healing wound which resulted in lt bka. matilde cataracts removed-has l ens implants. x3 rt inguinal hernia sx and an umb hernia repair. BELOW KNEE AMPUTATION , COLONOSCOPY Stent LADx1 03/09/2024-(R) Groin manual pull Past Anesthesia/Blood Transfusion Reactions: No Reported Reaction Additional Past Anesthesia/Blood Transfusion Reaction / Comment(s): States he was in the ICU after his surgery on his toes, but does not know why. Date of Last Stent Placement:: 05/2015 APPROX Past Psychological History: Anxiety, Depression, Panic Disorder Smoking Status: Current some day smoker - Past Family History Father History Unknown: Yes Mother History Unknown: Yes Family Medical History: Cancer, Coronary Artery Disease (CAD) Additional Family Medical History / Comment(s): benign Brain tumor, Berhane syndrome Sister(s) Family Medical History: No Reported History Medications and Allergies Home Medications Medication Instructions Recorded Confirmed Type Tamsulosin [Flomax] 0.4 mg PO DAILY 04/14/18 04/12/24 History Albuterol Inhaler [Ventolin Hfa 1 - 2 puff INHALATION RT-Q6H PRN 03/09/19 04/12/24 History Inhaler] Isosorbide Mononitrate ER [Imdur] 60 mg PO DAILY 03/11/22 04/12/24 History Pantoprazole [Protonix] 80 mg PO HS 03/11/22 04/12/24 History oxyCODONE-APAP 10-325MG [Percocet 1 tab PO Q6H PRN 03/11/22 04/12/24 History 10-325 mg] FLUoxetine HCL [PROzac] 40 mg PO BID 09/11/23 04/12/24 History Gabapentin [Neurontin] 400 mg PO HS 09/11/23 04/12/24 History Insulin NPH/Reg Insulin 70/30 See Protocol SQ AC-TID 09/11/23 04/12/24 History [humuLIN 70/30 VIAL] amLODIPine [Norvasc] 5 mg PO BID #60 tab 09/12/23 04/12/24 Rx Aspirin EC [Ecotrin Low Dose] 81 mg PO HS 12/16/23 04/12/24 History Loratadine 10 mg PO HS 12/16/23 04/12/24 History Nitroglycerin Sl Tabs [Nitrostat] 0.4 mg SL Q5M PRN 12/16/23 04/12/24 History Torsemide [Demadex] 20 mg PO BID 12/16/23 04/12/24 History allopurinoL [Zyloprim] 100 mg PO DAILY 12/16/23 04/12/24 History Atorvastatin [Lipitor] 40 mg PO HS #30 tab 12/25/23 04/12/24 Rx Metoprolol Succinate (ER) [Toprol 100 mg PO DAILY #30 tab 12/25/23 04/12/24 Rx XL] Ticagrelor [Brilinta] 90 mg PO BID #180 tab 03/10/24 04/12/24 Rx Psyllium Husk 100% [Metamucil 6 gm PO DAILY packet 04/10/24 04/12/24 Rx Packet] hydrALAZINE HCL [Apresoline] 50 mg PO BID #60 tab 04/10/24 04/12/24 Rx Allergies Allergy/AdvReac Type Severity Reaction Status Date / Time codeine AdvReac headache, Verified 04/12/24 08:38 DIZZY, N/V hydrocodone [From Vicodin] AdvReac Nausea & Verified 04/12/24 08:38 Vomiting tramadol AdvReac Nausea & Verified 04/12/24 08:38 Vomiting Physical Exam Vitals: Vital Signs Temp Pulse Pulse Resp BP BP Pulse Ox 04/12/24 12:19 04/12/24 11:35 81 16 147/67 98 04/12/24 11:15 98.4 F 82 21 137/63 98 04/12/24 08:50 97.9 F 87 16 161/77 90 L 04/12/24 08:00 87 04/12/24 07:48 83 04/12/24 07:39 04/12/24 06:58 77 18 166/79 97 04/12/24 06:00 97.6 F 78 18 170/81 97 04/12/24 04:10 04/12/24 03:15 98.0 F 80 18 170/65 99 04/12/24 02:00 80 18 04/12/24 01:20 98.0 F 79 18 145/76 98 04/12/24 00:26 98.9 F 84 21 156/80 94 L 04/11/24 23:30 04/11/24 23:25 04/11/24 23:12 82 20 165/63 93 L 04/11/24 21:05 04/11/24 20:38 04/11/24 20:21 78 26 H 155/73 96 04/11/24 20:14 97.5 F L 87 26 H 92 L FiO2 04/12/24 12:19 40 04/12/24 11:35 40 04/12/24 11:15 04/12/24 08:50 40 04/12/24 08:00 04/12/24 07:48 04/12/24 07:39 40 04/12/24 06:58 40 04/12/24 06:00 04/12/24 04:10 40 04/12/24 03:15 40 04/12/24 02:00 04/12/24 01:20 04/12/24 00:26 04/11/24 23:30 40 04/11/24 23:25 40 04/11/24 23:12 04/11/24 21:05 40 04/11/24 20:38 100 04/11/24 20:21 04/11/24 20:14 Intake and Output 04/12/24 04/12/24 04/12/24 06:59 14:59 22:59 Intake Total 540 Output Total 450 700 Balance 90 -700 Intake: Oral 540 Output: Urine 450 200 Other 500 Other: Voiding Method Urinal Urinal Weight 127 kg Results CBC & Chem 7: 04/11/24 21:30 10/10/24 11:30 Labs: Abnormal Lab Results - Last 24 Hours (Table) 04/11/24 04/11/24 04/11/24 Range/Units 21:00 21:30 21:30 WBC 13.1 H (3.8-10.6) k/uL RBC 2.58 L (4.30-5.90) m/uL Hgb 7.2 L (13.0-17.5) gm/dL Hct 22.6 L (39.0-53.0) % Neutrophils # 11.4 H (1.3-7.7) k/uL ABG pCO2 48 H (35-45) mmHg ABG pO2 371 H (83-108) mmHg ABG HCO3 30 H (21-25) mmol/L ABG Total CO2 32 H (19-24) mmol/L ABG O2 Saturation 100.0 H (94-97) % Hemoglobin 7.3 L (13.0-17.5) gm/dL Sodium (137-145) mmol/L Chloride 108 H (98-107) mmol/L BUN 41 H (9-20) mg/dL Creatinine 2.71 H (0.66-1.25) mg/dL Glucose 179 H (74-99) mg/dL POC Glucose (mg/dL) (70-110) mg/dL Calcium 8.1 L (8.4-10.2) mg/dL Magnesium 1.2 L (1.6-2.3) mg/dL Alkaline Phosphatase 154 H (38-126) U/L Albumin 2.9 L (3.5-5.0) g/dL 04/12/24 04/12/24 04/12/24 Range/Units 01:17 05:54 09:33 WBC (3.8-10.6) k/uL RBC (4.30-5.90) m/uL Hgb (13.0-17.5) gm/dL Hct (39.0-53.0) % Neutrophils # (1.3-7.7) k/uL ABG pCO2 (35-45) mmHg ABG pO2 (83-108) mmHg ABG HCO3 (21-25) mmol/L ABG Total CO2 (19-24) mmol/L ABG O2 Saturation (94-97) % Hemoglobin (13.0-17.5) gm/dL Sodium (137-145) mmol/L Chloride (98-107) mmol/L BUN (9-20) mg/dL Creatinine (0.66-1.25) mg/dL Glucose (74-99) mg/dL POC Glucose (mg/dL) 222 H 324 H 403 H (70-110) mg/dL Calcium (8.4-10.2) mg/dL Magnesium (1.6-2.3) mg/dL Alkaline Phosphatase (38-126) U/L Albumin (3.5-5.0) g/dL 04/12/24 04/12/24 Range/Units 11:30 11:57 WBC (3.8-10.6) k/uL RBC (4.30-5.90) m/uL Hgb (13.0-17.5) gm/dL Hct (39.0-53.0) % Neutrophils # (1.3-7.7) k/uL ABG pCO2 (35-45) mmHg ABG pO2 (83-108) mmHg ABG HCO3 (21-25) mmol/L ABG Total CO2 (19-24) mmol/L ABG O2 Saturation (94-97) % Hemoglobin (13.0-17.5) gm/dL Sodium 136 L (137-145) mmol/L Chloride (98-107) mmol/L BUN 41 H (9-20) mg/dL Creatinine 2.55 H (0.66-1.25) mg/dL Glucose 387 H (74-99) mg/dL POC Glucose (mg/dL) 439 H (70-110) mg/dL Calcium 8.0 L (8.4-10.2) mg/dL Magnesium 1.5 L (1.6-2.3) mg/dL Alkaline Phosphatase (38-126) U/L Albumin (3.5-5.0) g/dL Thrombosis Risk Factor Assmnt - Choose All That Apply Any of the Below Risk Factors Present?: Yes Each Factor Represents 1 point: Abnormal pulmonary function (COPD), Age 41-60 years, Heart failure (<1month), Medical pt on bed rest, Obesity (BMI >25), Swollen legs (current) Other Risk Factors: No Other congenital or acquired thrombophilia - If yes, enter type in comment: No Thrombosis Risk Factor Assessment Total Risk Factor Score: 6 Thrombosis Risk Factor Assessment Level: High Risk
--- NOTE | 2024-04-12 15:22 | P.PN ---
Progress Note - Text Progress Note Date: 04/12/24 Chief Complaint: Short of breath Pleasant 58-year-old patient follows with Dr. Harris. Chronic stable medical conditions include CAD, COPD, diabetes, GERD, hyperlipidemia, hypertension, end-stage kidney disease with hemodialysis, obstructive sleep apnea, PAD, left foot BKA with the prosthesis, home oxygen 2.5 L at night. CAD with stent right foot second, third fourth and fifth toe amputated. Patient is on peritoneal dialysis. Patient follows at the wound care, Dr. Denton Patient was recently in the hospital from March 31 through April 10. Patient had infected callus removed from the right foot. Subsequently started draining pus. Back to the OR for deep I&D. Deep tissue cultures positive for Proteus vulgaris. Patient to get a PICC line. Discharge on IV vancomycin and Rocephin. Patient is doing well when he got home. The previous night patient decided not to do his peritoneal dialysis. Nor was he able to take out his dialysate from the abdomen. Patient became short of breath brought to the ER. Had to be put on a BiPAP. Hypoxic. Nephrology was consulted and PD was ordered. When I came to see the patient patient is rather lethargic on the BiPAP April 12: Patient's BiPAP this morning. This afternoon sitting up in bed. Decreased appetite. Accu-Cheks are high. Given extra insulin. PD exchanges with 2 L every 4 hours with 4.25 solution for ultrafiltration. Also on IV Lasix. Being followed by nephrology. Spoke to the patient about being compliant with his peritoneal dialysis. Continue antibiotics. Active Medications Acetaminophen (Acetaminophen Tab 325 Mg Tab) 650 mg PO Q6HR PRN PRN Reason: Mild Pain or Fever > 100.5 Albuterol Sulfate (Albuterol Nebulized 2.5 Mg/3 Ml) 2.5 mg INHALATION RT-Q6H PRN PRN Reason: Shortness Of Breath Last Admin: 04/12/24 07:46 Dose: 2.5 mg Allopurinol (Allopurinol 100 Mg Tab) 100 mg PO DAILY [facility] Last Admin: 04/12/24 08:58 Dose: 100 mg Amlodipine Besylate (Amlodipine 5 Mg Tab) 5 mg PO BID [facility] Last Admin: 04/12/24 08:58 Dose: 5 mg Aspirin (Aspirin 81 Mg) 81 mg PO HS [facility] Last Admin: 04/11/24 23:50 Dose: 81 mg Atorvastatin Calcium (Atorvastatin 40 Mg Tab) 40 mg PO HS [facility] Last Admin: 04/11/24 23:50 Dose: 40 mg Darbepoetin Landen (Darbepoetin Landen 40 Mcg/0.4 Ml Syringe) 40 mcg SQ Q7D [facility] Last Admin: 04/12/24 10:42 Dose: 40 mcg Fluoxetine HCl (Fluoxetine Hcl 20 Mg Cap) 40 mg PO BID [facility] Furosemide (Furosemide 10 Mg/Ml 10 Ml Vial) 80 mg IV BID [facility] Last Admin: 04/12/24 08:58 Dose: 80 mg Gabapentin (Gabapentin 400 Mg Cap) 400 mg PO HS [facility] Last Admin: 04/11/24 23:50 Dose: 400 mg Hydralazine HCl (Hydralazine Hcl 50 Mg Tab) 50 mg PO BID [facility] Last Admin: 04/12/24 08:58 Dose: 50 mg Peritoneal Dialysis Solution (Delflex With 4.25% Dextrose (2,000 Ml)) 85 g in 2,000 mls @ 0 mls/hr INTRAPERIT Q4H [facility]; Protocol Last Admin: 04/12/24 14:28 Dose: 2,000 mls/hr Insulin Aspart (Insuln Asp Prt/Insulin Aspart 100 Unit/Ml 10 Ml Vial) 18 unit SQ AC-BID ARLET Insulin Aspart (Insuln Asp Prt/Insulin Aspart 100 Unit/Ml 10 Ml Vial) 8 unit SQ AC-LUNCH [facility] Last Admin: 04/12/24 12:12 Dose: 8 unit Isosorbide Mononitrate (Isosorbide Mononitrate Er 60 Mg Tab.Er.24h) 60 mg PO DAILY [facility] Last Admin: 04/12/24 08:58 Dose: 60 mg Loratadine (Loratadine 10 Mg Tab) 10 mg PO HS [facility] Last Admin: 04/11/24 23:51 Dose: 10 mg Lorazepam (Lorazepam 0.5 Mg Tab) 0.5 mg PO Q6HR PRN PRN Reason: Anxiety Metoprolol Succinate (Metoprolol Succinate (Er) 100 Mg Tab.Er.24h) 100 mg PO DAILY [facility] Last Admin: 04/12/24 08:58 Dose: 100 mg Naloxone HCl (Naloxone 0.4 Mg/Ml 1 Ml Vial) 0.2 mg IV Q2M PRN PRN Reason: Opioid Reversal Nitroglycerin (Nitroglycerin Sl Tabs 0.4 Mg Tab) 0.4 mg SUBLINGUAL Q5M PRN PRN Reason: Chest Pain Last Admin: 04/11/24 20:30 Dose: 0.4 mg Oxycodone/Acetaminophen (Oxycodone-Apap 10-325mg 1 Each Tab) 1 each PO Q6H PRN PRN Reason: Pain Last Admin: 04/12/24 14:02 Dose: 1 each Pantoprazole Sodium (Pantoprazole 40 Mg Tablet) 80 mg PO HS [facility] Last Admin: 04/11/24 23:50 Dose: 80 mg Psyllium Hydrophilic Mucilloid (Psyllium Husk 100% 6 Gm Packet) 6 gm PO DAILY [facility] Last Admin: 04/12/24 08:59 Dose: Not Given Tamsulosin HCl (Tamsulosin 0.4 Mg Cap.Er.24h) 0.4 mg PO DAILY [facility] Last Admin: 04/12/24 08:58 Dose: 0.4 mg Ticagrelor (Ticagrelor 90 Mg Tab) 90 mg PO BID [facility] Last Admin: 04/12/24 08:58 Dose: 90 mg Social history: Lives with his . Smokes about half a pack a day for many years-recently down to few cigarettes a day. No alcohol. Did use marijuana in the past. Physical examination: VITAL SIGNS: Febrile, 81, 20, 147 x 67, 98% on BiPAP GENERAL: Sitting up in bed, BiPAP, able to communicate EYES: Pupils equal. Conjunctiva julieta l. HEENT: External appearance of nose and ears normal, oral cavity grossly normal. NECK: JVD unable to assess; masses not palpable. HEART: First and second heart sounds are normal; edema present LUNGS:[ Respiratory rate-increased, decreased breath sounds some crackles ABDOMEN: Soft, nontender, liver spleen not palpable, no masses palpable. PSYCH: AOx3, mood affect tired c MUSCULOSKELETAL: Left BKA. With prosthesis. Right foot second third and fourth toe amputated. Awaiting new wound VAC placement currently dressing in place INVESTIGATIONS, reviewed in the clinical context: April 12: Sodium 136 potassium 3.9 BUN 41 creatinine 2.55 magnesium 1.5 April 11, 2024: White count 13.1 hemoglobin 7.2 platelets 394 sodium 140 potassium 3.6 BUN 41 creatinine 2.71 EKG tracing personally reviewed by me-normal sinus rhythm. ST-T wave changes Chest x-ray film personally reviewed by me-cardiomegaly, pulm edema From renal recent admission Deep wound cultures postsurgical showing Proteus vulgaris Assessment and plan: -Acute flash pulmonary edema secondary to patient not able to do his peritoneal dialysis, causing acute hypoxic respiratory failure: Slow to respond For peritoneal dialysis. As per nephrology -Acute hypoxic respiratory failure secondary to pulm edema: Slow to respond BiPAP -Sepsis secondary to right foot infection with chronic wound that is being followed at the wound care center. Is followed by Dr. Denton from vascular.: Initial wound cultures: Proteus vulgaris, Klebsiella oxytoca, MRSA Deep wound cultures postsurgical: Proteus vulgaris . IV ceftriaxone per ID, vancomycin-patient was discharged on the same Patient has a PICC line -Acute on chronic right foot wound which is being followed at wound care center., From underlying PAD Dr. Denton from vascular-carried out recent deep wound I&D right foot deep tissue cultures: Proteus vulgaris Wound VAC On IV vancomycin IV ceftriaxone Follow-up with Dr. Denton at the wound care center -Acute on chronic congestive heart failure exacerbation from systolic dysfunction EF 45%: Dialysis peritoneal. Demadex -End-stage kidney disease on peritoneal dialysis Nephrology following -Anemia of chronic kidney disease Aranesp -Essential hypertension Toprol-XL 100 mg a day. Amlodipine 5 mg twice daily. Hydralazine-50 mg twice daily -Diabetes mellitus type 2, chronically insulin, uncontrolled with hyperglycemia Follow Accu-Cheks with sliding scale insulin. NovoLog 70/30 18 units AC twice daily. 6 units with lunch. -BPH Flomax -Hyperlipidemia Lipitor 40mg nightly -Obesity BMI 38 Weight loss measures -Depression anxiety Prozac 40 mg twice daily -Diabetic peripheral neuropathy Neurontin 400 mg nightly -COPD in a current smoker inhalers -Chronic nicotine dependence cigarette smoker. Currently down to about 2 cigarettes a day Nicotine patch -Left below-knee amputation with a prosthesis. Right foot second third and fourth toe amputation. -Full code Discussed with the patient about his compliance with PD. PD dialysis as per nephrology. Other medications to continue. Past Medical History Past Medical History: Coronary Artery Disease (CAD), Heart Failure, COPD, Diabetes Mellitus, Eye Disorder, GERD/Reflux, Hyperlipidemia, Hypertension, Myocardial Infarction ([place]), Osteoarthritis (OA), Renal Disease, Respiratory Disorder, Sleep Apnea/CPAP/BIPAP, Vascular Disorder Additional Past Medical History / Comment(s): Poor circulation in hands and legs/feet. 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 does not wear cpap Last Myocardial Infarction Date:: 2014 History of Any Multi-Drug Resistant Organisms: MRSA Date of last positivie culture/infection: approx 2015 MDRO Source:: right foot Past Surgical History: Heart Catheterization With Stent, Hernia Repair, Tonsillectomy Additional Past Surgical History / Comment(s): Right foot 3rd and 4th AND 5TH toes and area of foot amputated, cyst on scrotum removed. partial amp lt foot but had non healing wound which resulted in lt bka. matilde cataracts removed-has lens implants. x3 rt inguinal hernia sx and an umb hernia repair. BELOW KNEE AMPUTATION , COLONOSCOPY Stent LADx1 03/09/2024-(R) Groin manual pull Past Anesthesia/Blood Transfusion Reactions: No Reported Reaction Additional Past Anesthesia/Blood Transfusion Reaction / Comment(s): States he was in the ICU after his surgery on his toes, but does not know why. Date of Last Stent Placement:: 05/2015 APPROX Past Psychological History: Anxiety, Depression, Panic Disorder Smoking Status: Current some day smoker
[2024-04-12 15:29] LABS: % Iron Saturation 7.69 (15.00-50.00)
[2024-04-12 16:33] LABS: Glucose,Whole Blood 449 mg/dL (70-110)
[2024-04-12] MEDS ORDERED: INSULIN ASPART (NovoLOG) 100 UNIT/ML VIAL SQ SCH (17:30)
[2024-04-12 20:08] LABS: Glucose,Whole Blood 347 mg/dL (70-110)
[2024-04-12] MEDS: MAGNESIUM OXIDE 400 MG TAB PO SCH (20:48)
[2024-04-12] MEDS: INSULIN ASPART (NovoLOG) 100 UNIT/ML VIAL SQ SCH (20:49)
[2024-04-12] MEDS: FLUoxetine HCL 20 MG CAP PO SCH (21:00)
[2024-04-12] MEDS ORDERED: VANCOMYCIN IV PER PHARMACY 1 EACH MISC MISCELLANE PRN (22:55)
--- NOTE | 2024-04-12 22:58 | P.CONS ---
History of Present Illness - Reason for Consult Consult date: 04/12/24 Antibiotic management Requesting physician: Luciano Melendez - Chief Complaint Shortness of breath x 1 day - History of Present Illness Patient is a 58-year-old male with a past medical history significant for coronary disease diabetes mellitus hypertension hyperlipidemia end-stage renal disease on peritoneal dialysis recent admission to the hospital with a right diabetic foot infection status post surgical debridement culture positive for MRSA Proteus and Klebsiella patient did get a PICC line and was advised a 6-week course of vancomycin pharmacy to dose and Rocephin 2 g daily patient now presenting back to the hospital for evaluation of increasing shortness of breath that apparently started the day of presentation to the hospital apparently the patient did not have fluid pulled from his PD in 2 days and the patient did not want his dialysis the night before presentation to the hospital patient complaining of worsening shortness of breath patient denies having any chest pain no significant cough or sputum production no fever no chills no nausea no vomiting no abdominal pain no diarrhea on presentation to the hospital the patient was afebrile and no reasonable course subsequently patient was not tachycardic or hypotensive has been hypoxic requiring a BiPAP patient did have white count of 13.1 creatinine is 2.71 patient did have a chest x-ray cardiomega ly with findings suggestive of mild to moderate CHF correlate clinically infectious he was consulted for management of his antibiotic therapy Review of Systems Positive point and negatives has been mentioned in the HPI, complete review of systems was performed and all other systems are negative Past Medical History Past Medical History: Coronary Artery Disease (CAD), Heart Failure, COPD, Diabetes Mellitus, Eye Disorder, GERD/Reflux, Hyperlipidemia, Hypertension, Myocardial Infarction ([place]), Osteoarthritis (OA), Renal Disease, Respiratory Disorder, Sleep Apnea/CPAP/BIPAP, Vascular Disorder Additional Past Medical History / Comment(s): Poor circulation in hands and legs/feet. 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 does not wear cpap Last Myocardial Infarction Date:: 2014 History of Any Multi-Drug Resistant Organisms: MRSA Year Discovered:: approx 2016 MDRO Source:: right foot Past Surgical History: Heart Catheterization With Stent, Hernia Repair, Tonsillectomy Additional Past Surgical History / Comment(s): Right foot 3rd and 4th AND 5TH toes and area of foot amputated, cyst on scrotum removed. partial amp lt foot but had non healing wound which resulted in lt bka. matilde cataracts removed-has lens implants. x3 rt inguinal hernia sx and an umb hernia repair. BELOW KNEE AMPUTATION , COLONOSCOPY Stent LADx1 03/09/2024-(R) Groin manual pull Past Anesthesia/Blood Transfusion Reactions: No Reported Reaction Additional Past Anesthesia/Blood Transfusion Reaction / Comm: States he was in the ICU after his surgery on his toes, but does not know why. Date of Last Stent Placement:: 05/2015 APPROX Past Psychological History: Anxiety, Depression, Panic Disorder Smoking Status: Current some day smoker - Past Family History Father History Unknown: Yes Mother History Unknown: Yes Family Medical History: Cancer, Coronary Artery Disease (CAD) Additional Family Medical History / Comment(s): benign Brain tumor, Berhane syndrome Sister(s) Family Medical History: No Reported History Medications and Allergies Home Medications Medication Instructions Recorded Confirmed Type Tamsulosin [Flomax] 0.4 mg PO DAILY 04/14/18 04/12/24 History Albuterol Inhaler [Ventolin Hfa 1 - 2 puff INHALATION RT-Q6H PRN 03/09/19 04/12/24 History Inhaler] Isosorbide Mononitrate ER [Imdur] 60 mg PO DAILY 03/11/22 04/12/24 History Pantoprazole [Protonix] 80 mg PO HS 03/11/22 04/12/24 History oxyCODONE-APAP 10-325MG [Percocet 1 tab PO Q6H PRN 03/11/22 04/12/24 History 10-325 mg] FLUoxetine HCL [PROzac] 40 mg PO BID 09/11/23 04/12/24 History Gabapentin [Neurontin] 400 mg PO HS 09/11/23 04/12/24 History Insulin NPH/Reg Insulin 70/30 See Protocol SQ AC-TID 09/11/23 04/12/24 History [humuLIN 70/30 VIAL] amLODIPine [Norvasc] 5 mg PO BID #60 tab 09/12/23 04/12/24 Rx Aspirin EC [Ecotrin Low Dose] 81 mg PO HS 12/16/23 04/12/24 History Loratadine 10 mg PO HS 12/16/23 04/12/24 History Nitroglycerin Sl Tabs [Nitrostat] 0.4 mg SL Q5M PRN 12/16/23 04/12/24 History Torsemide [Demadex] 20 mg PO BID 12/16/23 04/12/24 History allopurinoL [Zyloprim] 100 mg PO DAILY 12/16/23 04/12/24 History Atorvastatin [Lipitor] 40 mg PO HS #30 tab 12/25/23 04/12/24 Rx Metoprolol Succinate (ER) [Toprol 100 mg PO DAILY #30 tab 12/25/23 04/12/24 Rx XL] Ticagrelor [Brilinta] 90 mg PO BID #180 tab 03/10/24 04/12/24 Rx Psyllium Husk 100% [Metamucil 6 gm PO DAILY packet 04/10/24 04/12/24 Rx Packet] hydrALAZINE HCL [Apresoline] 50 mg PO BID #60 tab 04/10/24 04/12/24 Rx Allergies Allergy/AdvReac Type Severity Reaction Status Date / Time codeine AdvReac headache, Verified 04/12/24 08:38 DIZZY, N/V hydrocodone [From Vicodin] AdvReac Nausea & Verified 04/12/24 08:38 Vomiting tramadol AdvReac Nausea & Verified 04/12/24 08:38 Vomiting Physical Exam Vitals: Vital Signs Temp Pulse Pulse Resp BP BP Pulse Ox 04/12/24 08:00 87 04/12/24 07:48 83 04/12/24 07:39 04/12/24 06:58 77 18 166/79 97 04/12/24 06:00 97.6 F 78 18 170/81 97 04/12/24 04:10 04/12/24 03:15 98.0 F 80 18 170/65 99 04/12/24 02:00 80 18 04/12/24 01:20 98.0 F 79 18 145/76 98 04/12/24 00:26 98.9 F 84 21 156/80 94 L 04/11/24 23:30 04/11/24 23:25 04/11/24 23:12 82 20 165/63 93 L 04/11/24 21:05 04/11/24 20:38 04/11/24 20:21 78 26 H 155/73 96 04/11/24 20:14 97.5 F L 87 26 H 92 L FiO2 04/12/24 08:00 04/12/24 07:48 04/12/24 07:39 40 04/12/24 06:58 40 04/12/24 06:00 04/12/24 04:10 40 04/12/24 03:15 40 04/12/24 02:00 04/12/24 01:20 04/12/24 00:26 04/11/24 23:30 40 04/11/24 23:25 40 04/11/24 23:12 04/11/24 21:05 40 04/11/24 20:38 100 04/11/24 20:21 04/11/24 20:14 Intake and Output 04/11/24 04/12/24 04/12/24 22:59 06:59 14:59 Intake Total 540 Output Total 450 Balance 90 Intake: Oral 540 Output: Urine 450 Other: Voiding Method Urinal Weight 117.934 kg 127 kg GENERAL DESCRIPTION: Middle-aged male lying in bed, no distress. No tachypnea or accessory muscle of respiration use. HEENT: Shows Pallor , no scleral icterus. Oral mucous membrane is dry. NECK: Trachea central, no thyromegaly. LUNGS: Unlabored breathing. Decreased breath sounds at bases HEART: S1, S2, regular rate and rhythm. No loud murmur ABDOMEN: Soft, no tenderness , guarding or rigidity, no organomegaly EXTREMITIES: Right foot wound is currently covered with a wound VAC SKIN: No rash, no masses palpable. NEUROLOGICAL: The patient is awake, alert, oriented x3, mood and affect normal. Results CBC & Chem 7: 04/11/24 21:30 04/12/24 11:30 Labs: Abnormal Lab Results - Last 24 Hours (Table) 04/11/24 04/11/24 04/11/24 Range/Units 21:00 21:30 21:30 WBC 13.1 H (3.8-10.6) k/uL RBC 2.58 L (4.30-5.90) m/uL Hgb 7.2 L (13.0-17.5) gm/dL Hct 22.6 L (39.0-53.0) % Neutrophils # 11.4 H (1.3-7.7) k/uL ABG pCO2 48 H (35-45) mmHg ABG pO2 371 H (83-108) mmHg ABG HCO3 30 H (21-25) mmol/L ABG Total CO2 32 H (19-24) mmol/L ABG O2 Saturation 100.0 H (94-97) % Hemoglobin 7.3 L (13.0-17.5) gm/dL Chloride 108 H (98-107) mmol/L BUN 41 H (9-20) mg/dL Creatinine 2.71 H (0.66-1.25) mg/dL Glucose 179 H (74-99) mg/dL POC Glucose (mg/dL) (70-110) mg/dL Calcium 8.1 L (8.4-10.2) mg/dL Magnesium 1.2 L (1.6-2.3) mg/dL Alkaline Phosphatase 154 H (38-126) U/L Albumin 2.9 L (3.5-5.0) g/dL 04/12/24 04/12/24 04/12/24 Range/Units 01:17 05:54 09:33 WBC (3.8-10.6) k/uL RBC (4.30-5.90) m/uL Hgb (13.0-17.5) gm/dL Hct (39.0-53.0) % Neutrophils # (1.3-7.7) k/uL ABG pCO2 (35-45) mmHg ABG pO2 (83-108) mmHg ABG HCO3 (21-25) mmol/L ABG Total CO2 (19-24) mmol/L ABG O2 Saturation (94-97) % Hemoglobin (13.0-17.5) gm/dL Chloride (98-107) mmol/L BUN (9-20) mg/dL Creatinine (0.66-1.25) mg/dL Glucose (74-99) mg/dL POC Glucose (mg/dL) 222 H 324 H 403 H (70-110) mg/dL Calcium (8.4-10.2) mg/dL Magnesium (1.6-2.3) mg/dL Alkaline Phosphatase (38-126) U/L Albumin (3.5-5.0) g/dL Assessment and Plan (1) Diabetic infection of right foot Current Visit: Yes Status: Acute Code(s): E11.628 - TYPE 2 DIABETES MELLITUS WITH OTHER SKIN COMPLICATIONS; L08.9 - LOCAL INFECTION OF THE SKIN AND SUBCUTANEOUS TISSUE, UNSP SNOMED Code(s): 210358798 (2) Foot osteomyelitis, right Current Visit: Yes Status: Acute Code(s): M86.9 - OSTEOMYELITIS, UNSPECIFIED SNOMED Code(s): 6432713352000730 (3) MRSA (methicillin resistant Staphylococcus aureus) infection Current Visit: Yes Status: Acute Code(s): A49.02 - METHICILLIN RESIS STAPH INFECTION, UNSP SITE SNOMED Code(s): 822961353 Plan: 1patient with a recent admission to the hospital with extensive right diabetic foot infection in this patient who is status post surgical debridement culture positive for MRSA Proteus and Klebsiella for the patient has been on IV vanco mycin Rocephin in the outpatient setting who presented to hospital with increasing shortness of breath more likely due to fluid overload clinically not behaving as pneumonia 2-patient restarted back on vancomycin pharmacy to dose and Rocephin 2 g daily 3-local wound care to continue with the wound VAC We will follow on clinical condition and cultures to further adjust medication if needed Thank you for this consultation we will follow the patient along with you Dictation was produced using [employer] dictation software. please excuse any grammatical, word or spelling errors. Time with Patient: Greater than 30
[2024-04-12] MEDS: VANCOMYCIN 2,500 MG in SODIUM CHLORIDE 0.9% 500 ML 500 ML IVPB ONE (23:49)
[2024-04-13 06:59] LABS: Glucose,Whole Blood 281 mg/dL (70-110)
[2024-04-13 07:25] LABS: African American GFR (CKD) 26 (>60 ml/min/1.73 sqM); Anion Gap 4 mmol/L; Blood Urea Nitrogen 37 mg/dL (9-20); Carbon Dioxide 33 mmol/L (22-30); Chloride 101 mmol/L (98-107); Glucose 210 mg/dL (74-99); Magnesium 1.7 mg/dL (1.6-2.3); Non-African American GFR(CKD) 22 (>60 ml/min/1.73 sqM); Potassium 3.4 mmol/L (3.5-5.1); Sodium 138 mmol/L (137-145)
--- NOTE | 2024-04-13 10:00 | P.PN ---
Subjective Patient is seen in follow-up for end-stage renal disease. He is maintained on peritoneal dialysis. Currently undergoing 4.25% exchanges with UF of about 700 cc per exchange. Now on nasal cannula. Edema also improved. Vital signs are stable. General: No acute distress. HEENT: Head exam is unremarkable. On nasal cannula. LUNGS: No audible rhonchi or wheezes. HEART: Rate and Rhythm are regular. ABDOMEN: Nontender. EXTREMITITES: BKA noted. 1+ edema. Objective - Vital Signs Vital signs: Vital Signs Temp 96.8 F L 04/13/24 08:13 Pulse 88 04/13/24 09:20 Resp 18 04/13/24 09:20 BP 126/59 04/13/24 08:13 Pulse Ox 94 L 04/13/24 09:13 FiO2 40 04/13/24 09:13 Intake & Output 04/12/24 04/13/24 04/13/24 18:59 06:59 18:59 Intake Total 250 Output Total 700 Balance -700 250 Weight 124.5 kg Intake: IV 10 Invasive Line 1 10 Oral 240 Output: Urine 200 Other 500 Other: Voiding Method Urinal Urinal # Voids 1 # Bowel Movements 1 - Labs CBC & Chem 7: 04/11/24 21:30 04/13/24 06:20 Labs: Abnormal Lab Results - Last 24 Hours (Table) 04/12/24 04/12/24 04/12/24 Range/Units 11:14 11:30 11:57 Sodium 136 L (137-145) mmol/L Potassium (3.5-5.1) mmol/L Carbon Dioxide (22-30) mmol/L BUN 41 H (9-20) mg/dL Creatinine 2.55 H (0.66-1.25) mg/dL Glucose 387 H (74-99) mg/dL POC Glucose (mg/dL) 439 H (70-110) mg/dL Calcium 8.0 L (8.4-10.2) mg/dL Magnesium 1.5 L (1.6-2.3) mg/dL Iron 13 L (65-175) UG/DL TIBC 169 L (228-460) UG/DL % Saturation 7.69 L (15.00-50.00) Transferrin 121.0 L (204.0-354.0) mg/dL Ferritin 776.0 H (22.0-322.0) ng/mL 04/12/24 04/12/24 04/13/24 Range/Units 16:32 20:07 06:20 Sodium (137-145) mmol/L Potassium 3.4 L (3.5-5.1) mmol/L Carbon Dioxide 33 H (22-30) mmol/L BUN 37 H (9-20) mg/dL Creatinine 2.93 H (0.66-1.25) mg/dL Glucose 210 H (74-99) mg/dL POC Glucose (mg/dL) 449 H 347 H (70-110) mg/dL Calcium 8.0 L (8.4-10.2) mg/dL Magnesium (1.6-2.3) mg/dL Iron (65-175) UG/DL TIBC (228-460) UG/DL % Saturation (15.00-50.00) Transferrin (204.0-354.0) mg/dL Ferritin (22.0-322.0) ng/mL 04/13/24 Range/Units 06:57 Sodium (137-145) mmol/L Potassium (3.5-5.1) mmol/L Carbon Dioxide (22-30) mmol/L BUN (9-20) mg/dL Creatinine (0.66-1.25) mg/dL Glucose (74-99) mg/dL POC Glucose (mg/dL) 281 H (70-110) mg/dL Calcium (8.4-10.2) mg/dL Magnesium (1.6-2.3) mg/dL Iron (65-175) UG/DL TIBC (228-460) UG/DL % Saturation (15.00-50.00) Transferrin (204.0-354.0) mg/dL Ferritin (22.0-322.0) ng/mL Assessment and Plan Plan: Assessment: 1. End-stage renal disease maintained on peritoneal dialysis. 2. Noncompliance with peritoneal dialysis. 3. Acute hypoxic respiratory failure secondary to volume overload. Improved. 4. Right foot wound status post debridement with wound VAC. On IV antibiotics. 5. Diabetes mellitus. 6. Coronary disease with cardiac stents. 7. Hypertension with chronic kidney disease. Controlled. 8. Anemia of chronic kidney disease. On Aranesp. Iron deficiency noted. 9. Hypomagnesemia from diuresis. Replaced. Better. Plan: Change PD exchanges to 2 L every 4 hours with 2.5% solution. Stop IV Lasix. Add torsemide 40 mg once daily. Add IV iron. Phosphorus level 3.8 dated April 12, 2024. Replace potassium.
[2024-04-13] MEDS: DIALYSIS (PERIT 2.5%) 2,000 ML 50 G/2,000 ML BAG INTRAPERIT SCH (10:42)
[2024-04-13] MEDS: TORSEMIDE 20 MG TAB PO SCH (10:43)
[2024-04-13] MEDS: POTASSIUM CHLORIDE ER 20 MEQ TAB.ER PO STA (10:43)
[2024-04-13 11:33] LABS: Glucose,Whole Blood 183 mg/dL (70-110)
[2024-04-13] MEDS: SODIUM FERRIC GLUCONAT-SUCROSE 125 MG in SODIUM CHLORIDE 0.9% 100 ML IVPB SCH (12:20)
--- NOTE | 2024-04-13 12:20 | P.CRDCN ---
History of Present Illness Consult date: 04/13/24 Reason for Consult (text): Abnormal rhythm History of present illness: This is a 58-year-old male patient of Dr. Arenas with past medical history of coronary artery disease status post stenting of the RCA and recently the LAD, hypertension, dyslipidemia, cardiomyopathy, end-stage renal disease currently on peritoneal dialysis, overweight, sleep apnea and status post left below the knee amputation. We have been asked to evaluate the patient for abnormal rhythm. Patient states that he was just discharged on 04/10 due to right foot wound and sepsis. He returned to the hospital due to significant shortness of breath. He also had some chest pain last night and felt some palpitations. Now he just feels a little dizzy. He did utilize CPAP during the night. He states he is normally on 3 L nasal cannula at home but was increased to 6 L by EMS. Patient was started on IV Lasix 80 mg twice daily. Blood pressure 126/59, heart rate 69, pulse ox 98% on 4 L nasal cannula, afebrile. EKG: Sinus rhythm with IVCD, telemetry reviewed, patient had episode of NSVT. Chest x-ray: Cardiomegaly with findings suggestive of mild to moderate CHF. Laboratory studies: WBC 13.1, hemoglobin 7.2. Sodium 138, potassium 3.4, BUN 37 creatinine 2.93, CO2 33. Troponin negative x 1. proBNP 14,600. Home cardiac medications: Amlodipine 5 mg twice daily, aspirin 81 mg daily, atorvastatin 40 mg at bedtime, hydralazine 50 mg twice daily, Imdur 60 mg daily, Toprol XL 100 mg daily, Nitrostat as needed, Brilinta 90 mg twice daily, torsemide 20 mg twice daily. Echocardiogram performed 12/17/2023 was limited study with EF of 40 to 45%. Cardiac catheterization history, 03/09/2024: Patent stent in the mid RCA, intermediate disease involving the mid to distal RCA, intermediate to severe disease involving the LAD. Abnormal IFR. Patient underwent PCI with stenting of the mid LAD 02/20/2024. Review Of Systems: At the time of my exam: CONSTITUTIONAL: Denies fever or chills. HEENT: Denies blurred vision, vision changes, or eye pain. Denies hemoptysis CARDIOVASCULAR: Denies chest pain. Denies orthopnea. Denies PND. Denies palpitations RESPIRATORY: Denies shortness of breath. GASTROINTESTINAL: Denies abdominal pain. Denies nausea or vomiting. HEMATOLOGIC: Denies bleeding disorders. GENITOURINARY: Denies any blood in urine. SKIN: Denies puritis. Denies rash. Physical examination: Gen: This is a morbidly obese 58-year-old male in no acute distress. VS: reviewed HEENT: Head is atraumatic, normocephalic. Pupils equal, round. Sclerae is anicteric. NECK: Supple. No JVD. LUNGS: Diminished breath sounds to the bases no intercostal retractions. HEART: Regular rate and rhythm. Systolic murmur. ABDOMEN: Soft No tenderness. EXTREMITIES: 2+ lower extremity edema on the right, left below the knee amputation with no edema. No calf tenderness. NEUROLOGICAL: Patient is awake, alert and oriented x3. Assessment: Volume overload CAD with most recent stenting of the LAD 02/20/2024 Acute on chronic hypoxic respiratory failure on home O2 at 3 L nasal cannula End-stage renal disease on peritoneal dialysis PAD with previous left below the knee amputation Chronic right foot wound and recent admission for sepsis Obstructive sleep apnea Hypertension Dyslipidemia Ischemic cardiomyopathy Plan: Resume patient's home cardiac medications Recommend aggressive dialyzing and IV Lasix, nephrology on consult Further recommendations to follow based upon clinical course Thank you kindly for this consultation. Nurse practitioner note has been reviewed, I agree with documented findings and plan of care. Patient was seen and examined. Past Medical History Past Medical History: Coronary Artery Disease (CAD), Heart Failure, COPD, Diabetes Mellitus, Eye Disorder, GERD/Reflux, Hyperlipidemia, Hypertension, Myocardial Infarction (IA), Osteoarthritis (OA), Renal Disease, Respiratory Disorder, Sleep Apnea/CPAP/BIPAP, Vascular Disorder Additional Past Medical History / Comment(s): Poor circulation in hands and legs/feet. lt foot bka, has prosthesis, past shingles 1997(face), " I take allop urinol to prevent gout", " has muscle disorder in eye, peritoneal dialysis nightly , O2 AT 2.5 LITER DURING THE NIGHT. does not wear cpap Last Myocardial Infarction Date:: 2014 History of Any Multi-Drug Resistant Organisms: MRSA Date of last positivie culture/infection: approx 2015 MDRO Source:: right foot Past Surgical History: Heart Catheterization With Stent, Hernia Repair, Tonsillectomy Additional Past Surgical History / Comment(s): Right foot 3rd and 4th AND 5TH toes and area of foot amputated, cyst on scrotum removed. partial amp lt foot but had non healing wound which resulted in lt bka. matilde cataracts removed-has lens implants. x3 rt inguinal hernia sx and an umb hernia repair. BELOW KNEE AMPUTATION , COLONOSCOPY Stent LADx1 03/09/2024-(R) Groin manual pull Past Anesthesia/Blood Transfusion Reactions: No Reported Reaction Additional Past Anesthesia/Blood Transfusion Reaction / Comment(s): States he was in the ICU after his surgery on his toes, but does not know why. Date of Last Stent Placement:: 05/2015 APPROX Past Psychological History: Anxiety, Depression, Panic Disorder Smoking Status: Current some day smoker - Past Family History Father History Unknown: Yes Mother History Unknown: Yes Family Medical History: Cancer, Coronary Artery Disease (CAD) Additional Family Medical History / Comment(s): benign Brain tumor, Mecca syndrome Sister(s) Family Medical History: No Reported History Medications and Allergies Home Medications Medication Instructions Recorded Confirmed Type Tamsulosin [Flomax] 0.4 mg PO DAILY 04/14/18 04/12/24 History Albuterol Inhaler [Ventolin Hfa 1 - 2 puff INHALATION RT-Q6H PRN 03/09/19 04/12/24 History Inhaler] Isosorbide Mononitrate ER [Imdur] 60 mg PO DAILY 03/11/22 04/12/24 History Pantoprazole [Protonix] 80 mg PO HS 03/11/22 04/12/24 History oxyCODONE-APAP 10-325MG [Percocet 1 tab PO Q6H PRN 03/11/22 04/12/24 History 10-325 mg] FLUoxetine HCL [PROzac] 40 mg PO BID 09/11/23 04/12/24 History Gabapentin [Neurontin] 400 mg PO HS 09/11/23 04/12/24 History Insulin NPH/Reg Insulin 70/30 See Protocol SQ AC-TID 09/11/23 04/12/24 History [humuLIN 70/30 VIAL] amLODIPine [Norvasc] 5 mg PO BID #60 tab 09/12/23 04/12/24 Rx Aspirin EC [Ecotrin Low Dose] 81 mg PO HS 12/16/23 04/12/24 History Loratadine 10 mg PO HS 12/16/23 04/12/24 History Nitroglycerin Sl Tabs [Nitrostat] 0.4 mg SL Q5M PRN 12/16/23 04/12/24 History Torsemide [Demadex] 20 mg PO BID 12/16/23 04/12/24 History allopurinoL [Zyloprim] 100 mg PO DAILY 12/16/23 04/12/24 History Atorvastatin [Lipitor] 40 mg PO HS #30 tab 12/25/23 04/12/24 Rx Metoprolol Succinate (ER) [Toprol 100 mg PO DAILY #30 tab 12/25/23 04/12/24 Rx XL] Ticagrelor [Brilinta] 90 mg PO BID #180 tab 03/10/24 04/12/24 Rx Psyllium Husk 100% [Metamucil 6 gm PO DAILY packet 04/10/24 04/12/24 Rx Packet] hydrALAZINE HCL [Apresoline] 50 mg PO BID #60 tab 04/10/24 04/12/24 Rx Allergies Allergy/AdvReac Type Severity Reaction Status Date / Time codeine AdvReac headache, Verified 04/12/24 08:38 DIZZY, N/V hydrocodone [From Vicodin] AdvReac Nausea & Verified 04/12/24 08:38 Vomiting tramadol AdvReac Nausea & Verified 04/12/24 08:38 Vomiting Physical Exam Vitals: Vital Signs Temp Pulse Pulse Resp BP BP Pulse Ox 04/13/24 03:30 64 21 131/64 100 04/12/24 23:15 98.1 F 78 24 125/60 97 04/12/24 19:55 98.1 F 72 22 140/65 96 04/12/24 15:20 97.9 F 77 16 112/51 95 04/12/24 12:19 04/12/24 11:35 81 16 147/67 98 04/12/24 11:15 98.4 F 82 21 137/63 98 04/12/24 08:50 97.9 F 87 16 161/77 90 L FiO2 04/13/24 03:30 40 04/12/24 23:15 04/12/24 19:55 04/12/24 15:20 04/12/24 12:19 40 04/12/24 11:35 40 04/12/24 11:15 04/12/24 08:50 40 Intake and Output 04/12/24 04/13/24 04/13/24 22:59 06:59 14:59 Intake Total 10 Balance 10 Intake: IV 10 Invasive Line 1 10 Other: Voiding Method Urinal Urinal # Voids 1 # Bowel Movements 0 1 Weight 124.5 kg Results 04/11/24 21:30 04/13/24 06:20 Comprehensive Metabolic Panel 04/12/24 04/13/24 Range/Units 11:30 06:20 Sodium 136 L 138 (137-145) mmol/L Potassium 3.9 3.4 L (3.5-5.1) mmol/L Chloride 104 101 (98-107) mmol/L Carbon Dioxide 28 33 H (22-30) mmol/L BUN 41 H 37 H (9-20) mg/dL Creatinine 2.55 H 2.93 H (0.66-1.25) mg/dL Glucose 387 H 210 H (74-99) mg/dL Calcium 8.0 L 8.0 L (8.4-10.2) mg/dL Current Medications Generic Name Dose Route Start Last Admin Trade Name Freq PRN Reason Stop Dose Admin Acetaminophen 650 mg 04/11/24 22:28 Acetaminophen Tab 325 Mg Tab PO Q6HR PRN Mild Pain or Fever > 100.5 Albuterol Sulfate 2.5 mg 04/11/24 22:29 04/12/24 07:46 Albuterol Nebulized 2.5 Mg/3 Ml INHALATION 2.5 mg RT-Q6H PRN Administration Shortness Of Breath Allopurinol 100 mg 04/12/24 09:00 04/12/24 08:58 Allopurinol 100 Mg Tab PO 100 mg DAILY ARLET Administration Amlodipine Besylate 5 mg 04/11/24 22:30 04/12/24 20:48 Amlodipine 5 Mg Tab PO 5 mg BID ARLET Administration Aspirin 81 mg 04/11/24 22:30 04/12/24 20:48 Aspirin 81 Mg PO 81 mg HS ARLET Administration Atorvastatin Calcium 40 mg 04/11/24 22:30 04/12/24 20:48 Atorvastatin 40 Mg Tab PO 40 mg HS ARLET Administration Darbepoetin Alnden 40 mcg 04/12/24 11:00 04/12/24 10:42 Darbepoetin Landen 40 Mcg/0.4 Ml Syringe SQ 40 mcg Q7D ARLET Administration Fluoxetine HCl 40 mg 04/12/24 22:29 04/12/24 21:00 Fluoxetine Hcl 20 Mg Cap PO 40 mg BID ARLET Administration Furosemide 80 mg 04/11/24 22:00 04/12/24 20:49 Furosemide 10 Mg/Ml 10 Ml Vial IV 80 mg BID ARLET Administration Gabapentin 400 mg 04/11/24 22:30 04/12/24 20:48 Gabapentin 400 Mg Cap PO 400 mg HS ARLET Administration Hydralazine HCl 50 mg 04/11/24 22:30 04/12/24 20:48 Hydralazine Hcl 50 Mg Tab PO 50 mg BID ARLET Administration Peritoneal Dialysis Solution 85 g in 2,000 mls @ 0 mls/hr 04/11/24 22:00 04/13/24 05:56 Delflex With 4.25% Dextrose (2,000 Ml) INTRAPERIT 2,000 mls/hr Q4H ARLET Administration Protocol As Directed Ceftriaxone Sodium 2 gm/ 50 mls @ 100 mls/hr 04/12/24 23:00 04/12/24 23:17 Sodium Chloride IVPB 100 mls/hr Q24H ARLET Administration Protocol Vancomycin HCl 1,750 mg/ 500 mls @ 167 mls/hr 04/13/24 14:00 Sodium Chloride IVPB 04/13/24 16:59 ONCE ONE Insulin Aspart 18 unit 04/12/24 17:30 04/13/24 07:07 Insuln Asp Prt/Insulin Aspart 100 Unit/Ml 10 Ml Vial SQ 18 unit AC-BID ARLET Administration Insulin Aspart 8 unit 04/12/24 12:30 04/12/24 12:12 Insuln Asp Prt/Insulin Aspart 100 Unit/Ml 10 Ml Vial SQ 8 unit AC-LUNCH ARLET Administration Insulin Aspart 0 unit 04/12/24 21:00 04/13/24 07:08 Insulin Aspart (Novolog) 100 Unit/Ml Vial SQ 12 unit ACHS ARLET Administration Protocol Isosorbide Mononitrate 60 mg 04/12/24 09:00 04/12/24 08:58 Isosorbide Mononitrate Er 60 Mg Tab.Er.24h PO 60 mg DAILY ARLET Administration Loratadine 10 mg 04/11/24 22:30 04/12/24 20:48 Loratadine 10 Mg Tab PO 10 mg HS ARLET Administration Lorazepam 0.5 mg 04/11/24 22:28 Lorazepam 0.5 Mg Tab PO Q6HR PRN Anxiety Magnesium Oxide 400 mg 04/12/24 20:30 04/12/24 20:48 Magnesium Oxide 400 Mg Tab PO 400 mg DAILY ARLET Administration Metoprolol Succinate 100 mg 04/12/24 09:00 04/12/24 08:58 Metoprolol Succinate (Er) 100 Mg Tab.Er.24h PO 100 mg DAILY ARLET Administration Miscellaneous Information 1 each 04/12/24 22:55 Vancomycin Iv Per Pharmacy 1 Each Misc MISCELLANE DIRECTED PRN Per Protocol Protocol Naloxone HCl 0.2 mg 04/11/24 22:25 Naloxone 0.4 Mg/Ml 1 Ml Vial IV Q2M PRN Opioid Reversal Nitroglycerin 0.4 mg 04/11/24 20:35 04/11/24 20:30 Nitroglycerin Sl Tabs 0.4 Mg Tab SUBLINGUAL 0.4 mg Q5M PRN Administration Chest Pain Oxycodone/Acetaminophen 1 each 04/11/24 22:29 04/13/24 06:40 Oxycodone-Apap 10-325mg 1 Each Tab PO 1 each Q6H PRN Administration Pain Pantoprazole Sodium 80 mg 04/11/24 22:45 04/12/24 20:48 Pantoprazole 40 Mg Tablet PO 80 mg HS ARLET Administration Psyllium Hydrophilic Mucilloid 6 gm 04/12/24 09:00 04/12/24 08:59 Psyllium Husk 100% 6 Gm Packet PO Not Given DAILY ARLET Tamsulosin HCl 0.4 mg 04/12/24 09:00 04/12/24 08:58 Tamsulosin 0.4 Mg Cap.Er.24h PO 0.4 mg DAILY ARLET Administration Ticagrelor 90 mg 04/11/24 22:45 04/12/24 20:49 Ticagrelor 90 Mg Tab PO 90 mg BID ARLET Administration Intake and Output 04/12/24 04/13/24 04/13/24 22:59 06:59 14:59 Intake Total 10 Balance 10 Intake: IV 10 Invasive Line 1 10 Other: Voiding Method Urinal Urinal # Voids 1 # Bowel Movements 0 1 Weight 124.5 kg 04/11/24 21:30 04/13/24 06:20
[2024-04-13] MEDS ORDERED: INSULIN ASPART (NovoLOG) 100 UNIT/ML VIAL SQ SCH (12:30)
--- NOTE | 2024-04-13 13:03 | P.PN ---
Subjective Progress Note Date: 04/13/24 Pleasant 58-year-old patient follows with Dr. Harris. Chronic stable medical conditions include CAD, COPD, diabetes, GERD, hyperlipidemia, hypertension, end-stage kidney disease with hemodialysis, obstructive sleep apnea, PAD, left foot BKA with the prosthesis, home oxygen 2.5 L at night. CAD with stent right foot second, third fourth and fifth toe amputated. Patient is on peritoneal dialysis. Patient follows at the wound care, Dr. Denton Patient was recently in the hospital from March 31 through April 10. Patient had infected callus removed from the right foot. Subsequently started draining pus. Back to the OR for deep I&D. Deep tissue cultures positive for Proteus vulgaris. Patient to get a PICC line. Discharge on IV vancomycin and Rocephin. Patient is doing well when he got home. The previous night patient decided not to do his peritoneal dialysis. Nor was he able to take out his dialysate from the abdomen. Patient became short of breath brought to the ER. Had to be put on a BiPAP. Hypoxic. Nephrology was consulted and PD was ordered. When I came to see the patient patient is rather lethargic on the BiPAP April 12: Patient's BiPAP this morning. This afternoon sitting up in bed. Decreased appetite. Accu-Cheks are high. Given extra insulin. PD exchanges wi th 2 L every 4 hours with 4.25 solution for ultrafiltration. Also on IV Lasix. Being followed by nephrology. Spoke to the patient about being compliant with his peritoneal dialysis. Continue antibiotics. 04/13. Patient seen and examined. Blood work done this morning showed sodium 130 potassium 3.4, BUN 37, current 2.93. States breathing is improved. Still gets short of breath on exertion. REVIEW OF SYSTEMS: CONSTITUTIONAL: No fever, no malaise,. CARDIOVASCULAR: No chest pain, no palpitations, no syncope. PULMONARY: As mentioned above GASTROINTESTINAL: No diarrhea, no nausea, no vomiting, no abdominal pain. NEUROLOGICAL: No headaches, no weakness, PHYSICAL EXAMINATION: GENERAL: The patient is alert and oriented x3, chronically ill looking HEENT: Pupils are round and equally reacting to light. EOMI. No scleral icterus. No conjunctival pallor. Normocephalic, atraumatic. No pharyngeal erythema. No thyromegaly. CARDIOVASCULAR: S1 and S2 present. No murmurs, rubs, or gallops. PULMONARY: Chest is clear to auscultation, no wheezing or crackles. ABDOMEN: Soft, nontender, nondistended, normoactive bowel sounds. No palpable organomegaly. MUSCULOSKELETAL: Left BKA EXTREMITIES: No cyanosis, clubbing, or pedal edema. NEUROLOGICAL: Gross neurological examination did not reveal any focal deficits. SKIN: No rashes. Assessment and plan -Acute flash pulmonary edema secondary to patient not able to do his peritoneal dialysis, causing acute hypoxic respiratory failure: Slow to respond -Acute hypoxic respiratory failure secondary to pulm edema: Slow to respond Continue ox supplementation Use BiPAP as needed Aggressive bronchopulmonary hygiene -Sepsis secondary to right foot infection with chronic wound -Acute on chronic right foot wound Initial wound cultures: Proteus vulgaris, Klebsiella oxytoca, MRSA Deep wound cultures postsurgical: Proteus vulgaris Continue IV Rocephin and vancomycin ID following -Acute on chronic congestive heart failure exacerbation from systolic dysfunction EF 45%: Dialysis peritoneal. Demadex -End-stage kidney disease on peritoneal dialysis Nephrology following -Anemia of chronic kidney disease Aranesp -Essential hypertension Toprol-XL 100 mg a day. Amlodipine 5 mg twice daily. Hydralazine-50 mg twice daily -Diabetes mellitus type 2, chronically insulin, uncontrolled with hyperglycemia Monitor blood sugar levels, continue current insulin regimen -BPH Flomax -Hyperlipidemia Lipitor 40mg nightly -Obesity BMI 38 Weight loss measures -Depression anxiety Prozac 40 mg twice daily -Diabetic peripheral neuropathy Neurontin 400 mg nightly -COPD in a current smoker inhalers -Chronic nicotine dependence cigarette smoker. Currently down to about 2 cigarettes a day Nicotine patch -Left below-knee amputation with a prosthesis. Right foot second third and fourth toe amputation. Labs and medication were reviewed.. Continue same treatment. Continue with symptomatic treatment. Resume home medication. Monitor labs and vitals. DVT and GI prophylaxis. Further recommendations as per clinical course of the patient Dictation was produced using [employer] dictation software. please excuse any grammatical, word or spelling errors. Objective - Vital Signs Vital signs: Vital Signs Temp 96.8 F L 04/13/24 12:08 Pulse 67 04/13/24 12:08 Resp 16 04/13/24 12:08 BP 113/54 04/13/24 12:08 Pulse Ox 98 04/13/24 12:08 FiO2 40 04/13/24 09:13 Intake & Output 04/12/24 04/13/24 04/13/24 18:59 06:59 18:59 Intake Total 250 Output Total 700 Balance -700 250 Weight 124.5 kg Intake: IV 10 Invasive Line 1 10 Oral 240 Output: Urine 200 Other 500 Other: Voiding Method Urinal Urinal # Voids 1 # Bowel Movements 1 - Labs CBC & Chem 7: 04/11/24 21:30 04/13/24 06:20 Labs: Abnormal Lab Results - Last 24 Hours (Table) 04/12/24 04/12/24 04/12/24 Range/Units 11:14 11:30 16:32 Sodium 136 L (137-145) mmol/L Potassium (3.5-5.1) mmol/L Carbon Dioxide (22-30) mmol/L BUN 41 H (9-20) mg/dL Creatinine 2.55 H (0.66-1.25) mg/dL Glucose 387 H (74-99) mg/dL POC Glucose (mg/dL) 449 H (70-110) mg/dL Calcium 8.0 L (8.4-10.2) mg/dL Magnesium 1.5 L (1.6-2.3) mg/dL Iron 13 L (65-175) UG/DL TIBC 169 L (228-460) UG/DL % Saturation 7.69 L (15.00-50.00) Transferrin 121.0 L (204.0-354.0) mg/dL Ferritin 776.0 H (22.0-322.0) ng/mL 04/12/24 04/13/24 04/13/24 Range/Units 20:07 06:20 06:57 Sodium (137-145) mmol/L Potassium 3.4 L (3.5-5.1) mmol/L Carbon Dioxide 33 H (22-30) mmol/L BUN 37 H (9-20) mg/dL Creatinine 2.93 H (0.66-1.25) mg/dL Glucose 210 H (74-99) mg/dL POC Glucose (mg/dL) 347 H 281 H (70-110) mg/dL Calcium 8.0 L (8.4-10.2) mg/dL Magnesium (1.6-2.3) mg/dL Iron (65-175) UG/DL TIBC (228-460) UG/DL % Saturation (15.00-50.00) Transferrin (204.0-354.0) mg/dL Ferritin (22.0-322.0) ng/mL 04/13/24 Range/Units 11:31 Sodium (137-145) mmol/L Potassium (3.5-5.1) mmol/L Carbon Dioxide (22-30) mmol/L BUN (9-20) mg/dL Creatinine (0.66-1.25) mg/dL Glucose (74-99) mg/dL POC Glucose (mg/dL) 183 H (70-110) mg/dL Calcium (8.4-10.2) mg/dL Magnesium (1.6-2.3) mg/dL Iron (65-175) UG/DL TIBC (228-460) UG/DL % Saturation (15.00-50.00) Transferrin (204.0-354.0) mg/dL Ferritin (22.0-322.0) ng/mL
[2024-04-13] MEDS: VANCOMYCIN 1,750 MG in SODIUM CHLORIDE 0.9% 500 ML 500 ML IVPB ONE (14:29)
--- NOTE | 2024-04-13 14:56 | P.PN ---
Subjective Progress Note Date: 04/13/24 Principal diagnosis: Reason for follow-up is right diabetic foot ulcer and osteomyelitis Patient is a 58-year-old male with a past medical history significant for coronary disease diabetes mellitus hypertension hyperlipidemia end-stage renal disease on peritoneal dialysis recent admission to the hospital with a right diabetic foot infection status post surgical debridement culture positive for MRSA Proteus and Klebsiella for the patient was getting antibiotic outpatient setting presented hospital with increasing shortness of breath likely related to fluid overload. On today's evaluation that is 04/13/2024, Patient is afebrile this morning patient denies having any chest pain shortness of breath or cough, the patient is currently on room air, patient denies any abdominal pain no diarrhea no nausea no vomiting, denies pain to the right foot wound area. Patient did have a creatinine 2.93 no CBC was done today Objective - Vital Signs Vital signs: Vital Signs Temp 96.8 F L 04/13/24 12:08 Pulse 67 04/13/24 12:08 Resp 16 04/13/24 12:08 BP 113/54 04/13/24 12:08 Pulse Ox 98 04/13/24 12:08 FiO2 40 04/13/24 09:13 Intake & Output 04/12/24 04/13/24 04/13/24 18:59 06:59 18:59 Intake Total 850 Output Total 700 200 Balance -700 650 Weight 124.5 kg Intake: IV 10 Invasive Line 1 10 Intake, IV Titration 600 Amount Sodium Ferric Gluconat- 100 Sucrose 125 mg In Sodium Chloride 0.9% 100 ml @ 100 mls/hr IVPB DAILY [facility] Rx#:[id number] Vancomycin 1,750 mg In 500 Sodium Chloride 0.9% 500 ml 500 ml @ 167 mls/hr IVPB ONCE ONE Rx#: [id number] Oral 240 Output: Urine 200 200 Other 500 Other: Voiding Method Urinal Urinal Urinal # Voids 1 1 # Bowel Movements 1 - Exam GENERAL DESCRIPTION: Middle-aged male lying in bed in no distress RESPIRATORY SYSTEM: Unlabored breathing , decreased breath sounds at bases HEART: S1 S2 regular rate and rhythm , ABDOMEN: Soft , no tenderness EXTREMITIES: Right foot wound is covered with a wound VAC - Labs CBC & Chem 7: 04/11/24 21:30 04/13/24 06:20 Labs: Abnormal Lab Results - Last 24 Hours (Table) 1004/12/24 04/12/24 Range/Units 11:14 16:32 20:07 Potassium (3.5-5.1) mmol/L Carbon Dioxide (22-30) mmol/L BUN (9-20) mg/dL Creatinine (0.66-1.25) mg/dL Glucose (74-99) mg/dL POC Glucose (mg/dL) 449 H 347 H (70-110) mg/dL Calcium (8.4-10.2) mg/dL Iron 13 L (65-175) UG/DL TIBC 169 L (228-460) UG/DL % Saturation 7.69 L (15.00-50.00) Transferrin 121.0 L (204.0-354.0) mg/dL Ferritin 776.0 H (22.0-322.0) ng/mL 04/13/24 04/13/24 04/13/24 Range/Units 06:20 06:57 11:31 Potassium 3.4 L (3.5-5.1) mmol/L Carbon Dioxide 33 H (22-30) mmol/L BUN 37 H (9-20) mg/dL Creatinine 2.93 H (0.66-1.25) mg/dL Glucose 210 H (74-99) mg/dL POC Glucose (mg/dL) 281 H 183 H (70-110) mg/dL Calcium 8.0 L (8.4-10.2) mg/dL Iron (65-175) UG/DL TIBC (228-460) UG/DL % Saturation (15.00-50.00) Transferrin (204.0-354.0) mg/dL Ferritin (22.0-322.0) ng/mL Assessment and Plan (1) Diabetic infection of right foot Current Visit: Yes Status: Acute Code(s): E11.628 - TYPE 2 DIABETES MELLITUS WITH OTHER SKIN COMPLICATIONS; L08.9 - LOCAL INFECTION OF THE SKIN AND SUBCUTANEOUS TISSUE, UNSP SNOMED Code(s): 006151271 (2) Foot osteomyelitis, right Current Visit: Yes Status: Acute Code(s): M86.9 - OSTEOMYELITIS, UNSPECIFIED SNOMED Code(s): 7769544374770243 (3) MRSA (methicillin resistant Staphylococcus aureus) infection Current Visit: Yes Status: Acute Code(s): A49.02 - METHICILLIN RESIS STAPH INFECTION, UNSP SITE SNOMED Code(s): 212441032 Plan: 1patient with a recent admission to the hospital with extensive right diabetic foot infection in this patient who is status post surgical debridement culture positive for MRSA Proteus and Klebsiella for the patient has been on IV vancomycin Rocephin in the outpatient setting who presented to hospital with increasing shortness of breath more likely due to fluid overload clinically not behaving as pneumonia 2-patient being treated with vancomycin pharmacy to dose and Rocephin 2 g daily 3-local wound care to continue with the wound VAC orders has been placed and discussed with the nursing staff to change his wound VAC today Dictation was produced using [employer] dictation software. please excuse any grammatical, word or spelling errors. Time with Patient: Less than 30
[2024-04-13 16:26] LABS: Glucose,Whole Blood 204 mg/dL (70-110)
[2024-04-13 20:00] LABS: Glucose,Whole Blood 266 mg/dL (70-110)
[2024-04-14 06:28] LABS: Glucose,Whole Blood 311 mg/dL (70-110)
[2024-04-14 11:25] LABS: Glucose,Whole Blood 261 mg/dL (70-110)
--- NOTE | 2024-04-14 12:35 | P.PN ---
Subjective Progress Note Date: 04/14/24 Patient is seen in follow-up for end-stage renal disease. He is maintained on peritoneal dialysis. Currently undergoing exchanges without difficulty. Now on nasal cannula. Edema also improved. Vital signs are stable. General: No acute distress. HEENT: Head exam is unremarkable. On nasal cannula. LUNGS: No audible rhonchi or wheezes. HEART: Rate and Rhythm are regular. ABDOMEN: Nontender. EXTREMITITES: BKA noted. 1+ edema. Objective - Vital Signs Vital signs: Vital Signs Temp 96.9 F L 04/14/24 08:40 Pulse 76 04/14/24 08:40 Resp 18 04/14/24 08:40 BP 154/75 04/14/24 08:40 Pulse Ox 98 04/14/24 08:40 FiO2 40 04/14/24 04:00 Intake & Output 04/13/24 04/14/24 04/14/24 18:59 06:59 18:59 Intake Total 1220 20 730 Output Total 200 140 100 Balance 1020 -120 630 Weight 122.5 kg Intake: IV 20 20 10 Invasive Line 1 20 20 10 Intake, IV Titration 600 600 Amount Sodium Ferric Gluconat- 100 100 Sucrose 125 mg In Sodium Chloride 0.9% 100 ml @ 100 mls/hr IVPB DAILY [facility] Rx#:[id number] Vancomycin 1,750 mg In 500 500 Sodium Chloride 0.9% 500 ml 500 ml @ 167 mls/hr IVPB ONCE ONE Rx#: [id number] Oral 600 120 Output: Urine 200 140 100 Other: Voiding Method Urinal Urinal Urinal # Voids 1 1 1 # Bowel Movements 1 1 - Labs CBC & Chem 7: 04/11/24 21:30 04/13/24 06:20 Labs: Abnormal Lab Results - Last 24 Hours (Table) 04/13/24 04/13/24 04/13/24 Range/Units 11:31 16:24 19:58 POC Glucose (mg/dL) 183 H 204 H 266 H (70-110) mg/dL 04/14/24 Range/Units 06:26 POC Glucose (mg/dL) 311 H (70-110) mg/dL Assessment and Plan Assessment: 1. End-stage renal disease maintained on peritoneal dialysis. 2. Noncompliance with peritoneal dialysis. 3. Acute hypoxic respiratory failure secondary to volume overload. Improved. 4. Right foot wound status post debridement with wound VAC. On IV antibiotics. 5. Diabetes mellitus. 6. Coronary disease with cardiac stents. 7. Hypertension with chronic kidney disease. Controlled. 8. Anemia of chronic kidney disease. On Aranesp. Iron deficiency noted. 9. Hypomagnesemia from diuresis. Replaced. Better. Plan: PD exchanges to 2 L every 4 hours with 2.5% solution. Torsemide 40 mg once daily. Phosphorus level 3.8 dated April 12, 2024. Replace potassium.
--- NOTE | 2024-04-14 13:29 | P.PN ---
Subjective Progress Note Date: 04/14/24 Pleasant 58-year-old patient follows with Dr. Harris. Chronic stable medical conditions include CAD, COPD, diabetes, GERD, hyperlipidemia, hypertension, end-stage kidney disease with hemodialysis, obstructive sleep apnea, PAD, left foot BKA with the prosthesis, home oxygen 2.5 L at night. CAD with stent right foot second, third fourth and fifth toe amputated. Patient is on peritoneal dialysis. Patient follows at the wound care, Dr. Denton Patient was recently in the hospital from March 31 through April 10. Patient had infected callus removed from the right foot. Subsequently started draining pus. Back to the OR for deep I&D. Deep tissue cultures positive for Proteus vulgaris. Patient to get a PICC line. Discharge on IV vancomycin and Rocephin. Patient is doing well when he got home. The previous night patient decided not to do his peritoneal dialysis. Nor was he able to take out his dialysate from the abdomen. Patient became short of breath brought to the ER. Had to be put on a BiPAP. Hypoxic. Nephrology was consulted and PD was ordered. When I came to see the patient patient is rather lethargic on the BiPAP April 12: Patient's BiPAP this morning. This afternoon sitting up in bed. Decreased appetite. Accu-Cheks are high. Given extra insulin. PD exchanges wi th 2 L every 4 hours with 4.25 solution for ultrafiltration. Also on IV Lasix. Being followed by nephrology. Spoke to the patient about being compliant with his peritoneal dialysis. Continue antibiotics. 04/13. Patient seen and examined. Blood work done this morning showed sodium 130 potassium 3.4, BUN 37, current 2.93. States breathing is improved. Still gets short of breath on exertion. 04/14. Patient seen and examined. States he feels better. Patient not comfortable going home today REVIEW OF SYSTEMS: CONSTITUTIONAL: No fever, no malaise,. CARDIOVASCULAR: No chest pain, no palpitations, no syncope. PULMONARY: As mentioned above GASTROINTESTINAL: No diarrhea, no nausea, no vomiting, no abdominal pain. NEUROLOGICAL: No headaches, no weakness, PHYSICAL EXAMINATION: GENERAL: The patient is alert and oriented x3, chronically ill looking HEENT: Pupils are round and equally reacting to light. EOMI. No scleral icterus. No conjunctival pallor. Normocephalic, atraumatic. No pharyngeal erythema. No thyromegaly. CARDIOVASCULAR: S1 and S2 present. No murmurs, rubs, or gallops. PULMONARY: Chest is clear to auscultation, no wheezing or crackles. ABDOMEN: Soft, nontender, nondistended, normoactive bowel sounds. No palpable organomegaly. MUSCULOSKELETAL: Left BKA EXTREMITIES: No cyanosis, clubbing, or pedal edema. NEUROLOGICAL: Gross neurological examination did not reveal any focal deficits. SKIN: No rashes. Wound VAC in place Assessment and plan -Acute flash pulmonary edema secondary to patient not able to do his peritoneal dialysis, causing acute hypoxic respiratory failure -Acute hypoxic respiratory failure secondary to pulm edema: Slow to respond Continue ox supplementation Use BiPAP as needed Aggressive bronchopulmonary hygiene -Sepsis secondary to right foot infection with chronic wound -Acute on chronic right foot wound Initial wound cultures: Proteus vulgaris, Klebsiella oxytoca, MRSA Deep wound cultures postsurgical: Proteus vulgaris Continue IV Rocephin and vancomycin ID following -Acute on chronic congestive heart failure exacerbation from systolic dysfunction EF 45%: Dialysis peritoneal. Demadex -End-stage kidney disease on peritoneal dialysis Nephrology following -Anemia of chronic kidney disease Aranesp -Essential hypertension Toprol-XL 100 mg a day. Amlodipine 5 mg twice daily. Hydralazine-50 mg twice daily -Diabetes mellitus type 2, chronically insulin, uncontrolled with hyperglycemia Monitor blood sugar levels, continue current insulin regimen -BPH Flomax -Hyperlipidemia Lipitor 40mg nightly -Obesity BMI 38 Weight loss measures -Depression anxiety Prozac 40 mg twice daily -Diabetic peripheral neuropathy Neurontin 400 mg nightly -COPD in a current smoker inhalers -Chronic nicotine dependence cigarette smoker. Currently down to about 2 cigarettes a day Nicotine patch -Left below-knee amputation with a prosthesis. Right foot second third and fourth toe amputation. Labs and medication were reviewed.. Continue same treatment. Continue with symptomatic treatment. Resume home medication. Monitor labs and vitals. DVT and GI prophylaxis. Further recommendations as per clinical course of the patient Dictation was produced using [employer] dictation software. please excuse any grammatical, word or spelling errors. Objective - Vital Signs Vital signs: Vital Signs Temp 96.9 F L 04/14/24 08:40 Pulse 76 04/14/24 08:40 Resp 18 04/14/24 08:40 BP 154/75 04/14/24 08:40 Pulse Ox 98 04/14/24 08:40 FiO2 40 04/14/24 04:00 Intake & Output 04/13/24 04/14/24 04/14/24 18:59 06:59 18:59 Intake Total 1220 20 730 Output Total 200 140 100 Balance 1020 -120 630 Weight 122.5 kg Intake: IV 20 20 10 Invasive Line 1 20 20 10 Intake, IV Titration 600 600 Amount Sodium Ferric Gluconat- 100 100 Sucrose 125 mg In Sodium Chloride 0.9% 100 ml @ 100 mls/hr IVPB DAILY [facility] Rx#:[id number] Vancomycin 1,750 mg In 500 500 Sodium Chloride 0.9% 500 ml 500 ml @ 167 mls/hr IVPB ONCE ONE Rx#: [id number] Oral 600 120 Output: Urine 200 140 100 Other: Voiding Method Urinal Urinal Urinal # Voids 1 1 1 # Bowel Movements 1 1 - Labs CBC & Chem 7: 04/11/24 21:30 04/13/24 06:20 Labs: Abnormal Lab Results - Last 24 Hours (Table) 04/13/24 04/13/24 04/13/24 Range/Units 11:31 16:24 19:58 POC Glucose (mg/dL) 183 H 204 H 266 H (70-110) mg/dL 04/14/24 Range/Units 06:26 POC Glucose (mg/dL) 311 H (70-110) mg/dL
--- NOTE | 2024-04-14 13:47 | P.PN ---
Subjective Progress Note Date: 04/14/24 Principal diagnosis: Reason for follow-up is right diabetic foot ulcer and osteomyelitis Patient is a 58-year-old male with a past medical history significant for coronary disease diabetes mellitus hypertension hyperlipidemia end-stage renal disease on peritoneal dialysis recent admission to the hospital with a right diabetic foot infection status post surgical debridement culture positive for MRSA Proteus and Klebsiella for the patient was getting antibiotic outpatient setting presented hospital with increasing shortness of breath likely related to fluid overload. On today's evaluation that is 04/14/2024,the patient denies any fever or any chills, patient is breathing comfortably on 4 L nasal cannula oxygen, the patient denies chest pain shortness of breath and no significant cough, patient denies abdominal pain, no nausea vomiting or diarrhea. Patient denies pain to the right foot wound. Patient did have a vancomycin random of 38.9 no CBC was done today Objective - Vital Signs Vital signs: Vital Signs Temp 97.0 F L 04/14/24 11:56 Pulse 80 04/14/24 11:56 Resp 18 04/14/24 11:56 BP 128/64 04/14/24 11:56 Pulse Ox 97 04/14/24 11:56 FiO2 40 04/14/24 04:00 Intake & Output 04/13/24 04/14/24 04/14/24 18:59 06:59 18:59 Intake Total 1220 20 910 Output Total 200 140 200 Balance 1020 -120 710 Weight 122.5 kg Intake: IV 20 20 10 Invasive Line 1 20 20 10 Intake, IV Titration 600 600 Amount Sodium Ferric Gluconat- 100 100 Sucrose 125 mg In Sodium Chloride 0.9% 100 ml @ 100 mls/hr IVPB DAILY [facility] Rx#:[id number] Vancomycin 1,750 mg In 500 500 Sodium Chloride 0.9% 500 ml 500 ml @ 167 mls/hr IVPB ONCE ONE Rx#: [id number] Oral 600 300 Output: Urine 200 140 200 Other: Voiding Method Urinal Urinal Urinal # Voids 1 1 1 # Bowel Movements 1 1 - Exam GENERAL DESCRIPTION: Middle-aged male lying in bed in no distress RESPIRATORY SYSTEM: Unlabored breathing , decreased breath sounds at bases HEART: S1 S2 regular rate and rhythm , ABDOMEN: Soft , no tenderness EXTREMITIES: Right foot wound is covered with a wound VAC - Labs CBC & Chem 7: 04/11/24 21:30 04/13/24 06:20 Labs: Abnormal Lab Results - Last 24 Hours (Table) 04/13/24 04/13/24 04/14/24 Range/Units 16:24 19:58 06:26 POC Glucose (mg/dL) 204 H 266 H 311 H (70-110) mg/dL 04/14/24 Range/Units 11:23 POC Glucose (mg/dL) 261 H (70-110) mg/dL Assessment and Plan (1) Diabetic infection of right foot Current Visit: Yes Status: Acute Code(s): E11.628 - TYPE 2 DIABETES MELLITUS WITH OTHER SKIN COMPLICATIONS; L08.9 - LOCAL INFECTION OF THE SKIN AND SUBCUTANEOUS TISSUE, UNSP SNOMED Code(s): 188131943 (2) Foot osteomyelitis, right Current Visit: Yes Status: Acute Code(s): M86.9 - OSTEOMYELITIS, UNSPECIFIED SNOMED Code(s): 8742229900335886 (3) MRSA (methicillin resistant Staphylococcus aureus) infection Current Visit: Yes Status: Acute Code(s): A49.02 - METHICILLIN RESIS STAPH INFECTION, UNSP SITE SNOMED Code(s): 221598304 Plan: 1patient with a recent admission to the hospital with extensive right diabetic foot infection in this patient who is status post surgical debridement culture positive for MRSA Proteus and Klebsiella for the patient has been on IV vancomycin Rocephin in the outpatient setting who presented to hospital with increasing shortness of breath more likely due to fluid overload clinically not behaving as pneumonia 2-patient local wound care to continue with the wound VAC to be changed Tuesday 3we will give the patient vancomycin pharmacy to dose target of 15 and Rocephin 2 g daily Dictation was produced using [employer] software. please excuse any grammatical, word or spelling errors. Time with Patient: Less than 30
[2024-04-14] MEDS: HYDROmorphone 0.5 MG/0.5 ML SYRINGE IVP STA (15:13)
[2024-04-14 16:24] LABS: Glucose,Whole Blood 220 mg/dL (70-110)
--- NOTE | 2024-04-14 17:41 | P.PN ---
Subjective Progress Note Date: 04/14/24 This is a 58-year-old male patient of Dr. Arenas with past medical history of coronary artery disease status post stenting of the RCA and recently the LAD, hypertension, dyslipidemia, cardiomyopathy, end-stage renal disease currently on peritoneal dialysis, overweight, sleep apnea and status post left below the knee amputation. We have been asked to evaluate the patient for abnormal rhythm. Patient states that he was just discharged on 04/10 due to right foot wound and sepsis. He returned to the hospital due to significant shortness of breath. He also had some chest pain last night and felt some palpitations. Now he just feels a little dizzy. He did utilize CPAP during the night. He states he is normally on 3 L nasal cannula at home but was increased to 6 L by EMS. Patient was started on IV Lasix 80 mg twice daily. Blood pressure 126/59, heart rate 69, pulse ox 98% on 4 L nasal cannula, afebrile. EKG: Sinus rhythm with IVCD, telemetry reviewed, patient had episode of NSVT. Chest x-ray: Cardiomegaly with findings suggestive of mild to moderate CHF. Laboratory studies: WBC 13.1, hemoglobin 7.2. Sodium 138, potassium 3.4, BUN 37 creatinine 2.93, CO2 33. Troponin negative x 1. proBNP 14,600. Home cardiac medications: Amlodipine 5 mg twice daily, aspirin 81 mg daily, atorvastatin 40 mg at bedtime, hydralazine 50 mg twice daily, Imdur 60 mg daily, Toprol XL 100 mg daily, Nitrostat as needed, Brilinta 90 mg twice daily, torsemide 20 mg twice daily. Echocardiogram performed 12/17/2023 was limited study with EF of 40 to 45%. Cardiac catheterization history, 03/09/2024: Patent stent in the mid RCA, intermediate disease involving the mid to distal RCA, intermediate to severe disease involving the LAD. Abnormal IFR. Patient underwent PCI with stenting of the mid LAD 02/20/2024. Progress note 04/14/2024 Patient is doing well from cardiovascular standpoint. His kidney function is stable. He is tolerating peritoneal dialysis. He denies having any active chest pain chest pressure. His shortness of breath is improved since the time of admission. Physical examination: Gen: This is a morbidly obese 58-year-old male in no acute distress. VS: reviewed HEENT: Head is atraumatic, normocephalic. Pupils equal, round. Sclerae is anicteric. NECK: Supple. No JVD. LUNGS: Diminished breath sounds to the bases no intercostal retractions. HEART: Regular rate and rhythm. Systolic murmur. ABDOMEN: Soft No tenderness. EXTREMITIES: 2+ lower extremity edema on the right, left below the knee amputation with no edema. No calf tenderness. NEUROLOGICAL: Patient is awake, alert and oriented x3. 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 Continue peritoneal dialysis Diuretics as per nephrology team recommendation Objective - Vital Signs Vital signs: Vital Signs Temp 97.0 F L 04/14/24 11:56 Pulse 76 04/14/24 15:55 Resp 18 04/14/24 15:55 BP 134/64 04/14/24 15:55 Pulse Ox 97 04/14/24 15:55 FiO2 40 04/14/24 04:00 Intake & Output 04/13/24 04/14/24 04/14/24 18:59 06:59 18:59 Intake Total 1220 20 920 Output Total 200 140 200 Balance 1020 -120 720 Weight 122.5 kg Intake: IV 20 20 20 Invasive Line 1 20 20 20 Intake, IV Titration 600 600 Amount Sodium Ferric Gluconat- 100 100 Sucrose 125 mg In Sodium Chloride 0.9% 100 ml @ 100 mls/hr IVPB DAILY [facility] Rx#:[id number] Vancomycin 1,750 mg In 500 500 Sodium Chloride 0.9% 500 ml 500 ml @ 167 mls/hr IVPB ONCE ONE Rx#: [id number] Oral 600 300 Output: Urine 200 140 200 Other: Voiding Method Urinal Urinal Urinal # Voids 1 1 1 # Bowel Movements 1 1 - Labs CBC & Chem 7: 04/11/24 21:30 04/13/24 06:20 Labs: Abnormal Lab Results - Last 24 Hours (Table) 04/13/24 04/14/24 04/14/24 Range/Units 19:58 06:26 11:23 POC Glucose (mg/dL) 266 H 311 H 261 H (70-110) mg/dL 04/14/24 Range/Units 16:23 POC Glucose (mg/dL) 220 H (70-110) mg/dL
[2024-04-14] MEDS: ONDANSETRON 4 MG/2 ML VIAL IVP PRN (18:45)
[2024-04-14 20:18] LABS: Glucose,Whole Blood 165 mg/dL (70-110)
[2024-04-15 06:16] LABS: Glucose,Whole Blood 159 mg/dL (70-110)
[2024-04-15 06:31] LABS: Basophils % (A) 0 %; Eosinophils # (A) 0.2 k/uL (0-0.7); Eosinophils % (A) 3 %; Hypochromasia Moderate; Lymphocytes # (A) 1.3 k/uL (1.0-4.8); Lymphocytes % (A) 15 %; MCHC 31.3 g/dL (31.0-37.0); MCV 89.4 fL (80.0-100.0); Mean Platelet Volume 8.5; Monocytes # (A) 0.4 k/uL (0-1.0); Monocytes % (A) 5 %; Neutrophils # (A) 6.4 k/uL (1.3-7.7); Neutrophils % (A) 75 %; Platelet Count 372 k/uL (150-450); WBC 8.6 k/uL (3.8-10.6)
[2024-04-15 06:44] LABS: ALT 18 U/L (4-49); AST 16 U/L (17-59); African American GFR (CKD) 20 (>60 ml/min/1.73 sqM); Albumin 2.5 g/dL (3.5-5.0); Alkaline Phosphatase 128 U/L (38-126); Anion Gap 4 mmol/L; Blood Urea Nitrogen 39 mg/dL (9-20); Carbon Dioxide 30 mmol/L (22-30); Chloride 104 mmol/L (98-107); Glucose 137 mg/dL (74-99); Non-African American GFR(CKD) 17 (>60 ml/min/1.73 sqM); Potassium 3.4 mmol/L (3.5-5.1); Sodium 138 mmol/L (137-145); Total Bilirubin <0.1 mg/dL (0.2-1.3)
[2024-04-15 06:48] LABS: HCT 19.7 % (39.0-53.0); HGB 6.2 gm/dL (13.0-17.5)
--- NOTE | 2024-04-15 10:31 | P.PN ---
Subjective Progress Note Date: 04/15/24 This is a 58-year-old male patient of Dr. Arenas with past medical history of coronary artery disease status post stenting of the RCA and recently the LAD, hypertension, dyslipidemia, cardiomyopathy, end-stage renal disease currently on peritoneal dialysis, overweight, sleep apnea and status post left below the knee amputation. We have been asked to evaluate the patient for abnormal rhythm. Patient states that he was just discharged on 04/10 due to right foot wound and sepsis. He returned to the hospital due to significant shortness of breath. He also had some chest pain last night and felt some palpitations. Now he just feels a little dizzy. He did utilize CPAP during the night. He states he is normally on 3 L nasal cannula at home but was increased to 6 L by EMS. Patient was started on IV Lasix 80 mg twice daily. Blood pressure 126/59, heart rate 69, pulse ox 98% on 4 L nasal cannula, afebrile. EKG: Sinus rhythm with IVCD, telemetry reviewed, patient had episode of NSVT. Chest x-ray: Cardiomegaly with findings suggestive of mild to moderate CHF. Laboratory studies: WBC 13.1, hemoglobin 7.2. Sodium 138, potassium 3.4, BUN 37 creatinine 2.93, CO2 33. Troponin negative x 1. proBNP 14,600. Home cardiac medications: Amlodipine 5 mg twice daily, aspirin 81 mg daily, atorvastatin 40 mg at bedtime, hydralazine 50 mg twice daily, Imdur 60 mg daily, Toprol XL 100 mg daily, Nitrostat as needed, Brilinta 90 mg twice daily, torsemide 20 mg twice daily. Echocardiogram performed 12/17/2023 was limited study with EF of 40 to 45%. Cardiac catheterization history, 03/09/2024: Patent stent in the mid RCA, intermediate disease involving the mid to distal RCA, intermediate to severe disease involving the LAD. Abnormal IFR. Patient underwent PCI with stenting of the mid LAD 02/20/2024. Progress note 04/14/2024 Patient is doing well from cardiovascular standpoint. His kidney function is stable. He is tolerating peritoneal dialysis. He denies having any active chest pain chest pressure. His shortness of breath is improved since the time of admission. April 15, 2024 Pulse 73, sinus rhythm, afebrile, BP 146/72, Hemoglobin 6.2, BUN 39, creatinine 3.7, potassium 3.4 ALP 128 He does report feeling more weak Patient denies any symptoms of chest pain chest pressure. He is getting his peritoneal dialysis as usual with no new concerns. No abdominal pain or abdominal tenderness. Physical examination: Gen: This is a morbidly obese 58-year-old male in no acute distress. VS: reviewed HEENT: Head is atraumatic, normocephalic. Pupils equal, round. Sclerae is anicteric. NECK: Supple. No JVD. LUNGS: Diminished breath sounds to the bases no intercostal retractions. HEART: Regular rate and rhythm. Systolic murmur. ABDOMEN: Soft No tenderness. EXTREMITIES: 2+ lower extremity edema on the right, left below the knee amputation with no edema. No calf tenderness. NEUROLOGICAL: Patient is awake, alert and oriented x3. 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 Continue peritoneal dialysis Agree with blood transfusion Diuretics as per nephrology team recommendation Objective - Vital Signs Vital signs: Vital Signs Temp 96.7 F L 04/15/24 09:26 Pulse 73 04/15/24 09:26 Resp 20 04/15/24 09:26 BP 150/72 04/15/24 09:26 Pulse Ox 99 04/15/24 09:26 FiO2 40 04/14/24 04:00 Intake & Output 04/14/24 04/15/24 04/15/24 18:59 06:59 18:59 Intake Total 1100 800 260 Output Total 200 120 100 Balance 900 680 160 Weight 125 kg Intake: IV 20 20 10 Invasive Line 1 20 20 10 Intake, IV Titration 600 Amount Sodium Ferric Gluconat- 100 Sucrose 125 mg In Sodium Chloride 0.9% 100 ml @ 100 mls/hr IVPB DAILY [facility] Rx#:[id number] Vancomycin 1,750 mg In 500 Sodium Chloride 0.9% 500 ml 500 ml @ 167 mls/hr IVPB ONCE ONE Rx#: [id number] Oral 480 780 250 Blood Product 0 Unit 0 Output: Urine 200 120 100 Other: Voiding Method Urinal Urinal Urinal # Voids 1 1 # Bowel Movements 1 1 - Labs CBC & Chem 7: 04/15/24 05:33 04/15/24 05:33 Labs: Abnormal Lab Results - Last 24 Hours (Table) 04/14/24 04/14/24 04/14/24 Range/Units 11:23 16:23 20:17 RBC (4.30-5.90) m/uL Hgb (13.0-17.5) gm/dL Hct (39.0-53.0) % Potassium (3.5-5.1) mmol/L BUN (9-20) mg/dL Creatinine (0.66-1.25) mg/dL Glucose (74-99) mg/dL POC Glucose (mg/dL) 261 H 220 H 165 H (70-110) mg/dL Calcium (8.4-10.2) mg/dL Total Bilirubin (0.2-1.3) mg/dL AST (17-59) U/L Alkaline Phosphatase (38-126) U/L Total Protein (6.3-8.2) g/dL Albumin (3.5-5.0) g/dL Crossmatch 04/15/24 04/15/24 04/15/24 Range/Units 05:33 05:33 06:13 RBC 2.20 L (4.30-5.90) m/uL Hgb 6.2 L* (13.0-17.5) gm/dL Hct 19.7 L* (39.0-53.0) % Potassium 3.4 L (3.5-5.1) mmol/L BUN 39 H (9-20) mg/dL Creatinine 3.70 H (0.66-1.25) mg/dL Glucose 137 H (74-99) mg/dL POC Glucose (mg/dL) 159 H (70-110) mg/dL Calcium 8.0 L (8.4-10.2) mg/dL Total Bilirubin <0.1 L (0.2-1.3) mg/dL AST 16 L (17-59) U/L Alkaline Phosphatase 128 H (38-126) U/L Total Protein 6.0 L (6.3-8.2) g/dL Albumin 2.5 L (3.5-5.0) g/dL Crossmatch 04/15/24 Range/Units 07:03 RBC (4.30-5.90) m/uL Hgb (13.0-17.5) gm/dL Hct (39.0-53.0) % Potassium (3.5-5.1) mmol/L BUN (9-20) mg/dL Creatinine (0.66-1.25) mg/dL Glucose (74-99) mg/dL POC Glucose (mg/dL) (70-110) mg/dL Calcium (8.4-10.2) mg/dL Total Bilirubin (0.2-1.3) mg/dL AST (17-59) U/L Alkaline Phosphatase (38-126) U/L Total Protein (6.3-8.2) g/dL Albumin (3.5-5.0) g/dL Crossmatch See Detail
--- NOTE | 2024-04-15 11:19 | P.PN ---
Subjective Progress Note Date: 04/15/24 Patient is seen in follow-up for end-stage renal disease. He is maintained on peritoneal dialysis. Currently undergoing exchanges without difficulty. Now on nasal cannula. Edema also improved.Low blood count and receiving blood this morning. Vital signs are stable. General: No acute distress. HEENT: Head exam is unremarkable. On nasal cannula. LUNGS: No audible rhonchi or wheezes. HEART: Rate and Rhythm are regular. ABDOMEN: Nontender. EXTREMITITES: BKA noted. 1+ edema. Objective - Vital Signs Vital signs: Vital Signs Temp 96.9 F L 04/15/24 09:11 Pulse 75 04/15/24 09:11 Resp 18 04/15/24 09:11 BP 146/72 04/15/24 09:11 Pulse Ox 93 L 04/15/24 09:11 FiO2 40 04/14/24 04:00 Intake & Output 04/14/24 04/15/24 04/15/24 18:59 06:59 18:59 Intake Total 1100 800 260 Output Total 200 120 Balance 900 680 260 Weight 125 kg Intake: IV 20 20 10 Invasive Line 1 20 20 10 Intake, IV Titration 600 Amount Sodium Ferric Gluconat- 100 Sucrose 125 mg In Sodium Chloride 0.9% 100 ml @ 100 mls/hr IVPB DAILY [facility] Rx#:[id number] Vancomycin 1,750 mg In 500 Sodium Chloride 0.9% 500 ml 500 ml @ 167 mls/hr IVPB ONCE ONE Rx#: [id number] Oral 480 780 250 Blood Product 0 Unit 0 Output: Urine 200 120 Other: Voiding Method Urinal Urinal Urinal # Voids 1 # Bowel Movements 1 1 - Labs CBC & Chem 7: 04/15/24 05:33 04/15/24 05:33 Labs: Abnormal Lab Results - Last 24 Hours (Table) 04/14/24 04/14/24 04/14/24 Range/Units 11:23 16:23 20:17 RBC (4.30-5.90) m/uL Hgb (13.0-17.5) gm/dL Hct (39.0-53.0) % Potassium (3.5-5.1) mmol/L BUN (9-20) mg/dL Creatinine (0.66-1.25) mg/dL Glucose (74-99) mg/dL POC Glucose (mg/dL) 261 H 220 H 165 H (70-110) mg/dL Calcium (8.4-10.2) mg/dL Total Bilirubin (0.2-1.3) mg/dL AST (17-59) U/L Alkaline Phosphatase (38-126) U/L Total Protein (6.3-8.2) g/dL Albumin (3.5-5.0) g/dL Crossmatch 04/15/24 04/15/24 04/15/24 Range/Units 05:33 05:33 06:13 RBC 2.20 L (4.30-5.90) m/uL Hgb 6.2 L* (13.0-17.5) gm/dL Hct 19.7 L* (39.0-53.0) % Potassium 3.4 L (3.5-5.1) mmol/L BUN 39 H (9-20) mg/dL Creatinine 3.70 H (0.66-1.25) mg/dL Glucose 137 H (74-99) mg/dL POC Glucose (mg/dL) 159 H (70-110) mg/dL Calcium 8.0 L (8.4-10.2) mg/dL Total Bilirubin <0.1 L (0.2-1.3) mg/dL AST 16 L (17-59) U/L Alkaline Phosphatase 128 H (38-126) U/L Total Protein 6.0 L (6.3-8.2) g/dL Albumin 2.5 L (3.5-5.0) g/dL Crossmatch 04/15/24 Range/Units 07:03 RBC (4.30-5.90) m/uL Hgb (13.0-17.5) gm/dL Hct (39.0-53.0) % Potassium (3.5-5.1) mmol/L BUN (9-20) mg/dL Creatinine (0.66-1.25) mg/dL Glucose (74-99) mg/dL POC Glucose (mg/dL) (70-110) mg/dL Calcium (8.4-10.2) mg/dL Total Bilirubin (0.2-1.3) mg/dL AST (17-59) U/L Alkaline Phosphatase (38-126) U/L Total Protein (6.3-8.2) g/dL Albumin (3.5-5.0) g/dL Crossmatch See Detail Assessment and Plan Assessment: 1. End-stage renal disease maintained on peritoneal dialysis. 2. Noncompliance with peritoneal dialysis. 3. Acute hypoxic respiratory failure secondary to volume overload. Improved. 4. Right foot wound status post debridement with wound VAC. On IV antibiotics. 5. Diabetes mellitus. 6. Coronary disease with cardiac stents. 7. Hypertension with chronic kidney disease. Controlled. 8. Anemia of chronic kidney disease. On Aranesp. Iron deficiency noted. 9. Hypomagnesemia from diuresis. Replaced. Better. Plan: PD exchanges to 2 L every 4 hours with 2.5% solution. Torsemide 40 mg once daily. Phosphorus level 3.8 dated April 12, 2024. Replace potassium. Hb 6.2 today, plan for transfusion
[2024-04-15 11:41] LABS: Glucose,Whole Blood 205 mg/dL (70-110)
--- NOTE | 2024-04-15 12:10 | CT ---
EXAMINATION TYPE: CT abdomen pelvis wo con DATE OF EXAM: 04/15/2024 HISTORY: Abdominal pain CT DLP: 1601.2 mGycm. Automated Exposure Control for Dose Reduction was Utilized. TECHNIQUE: CT scan of the abdomen and pelvis is performed without oral or IV contrast. COMPARISON: None FINDINGS: Within the limitations of a non-contrast study, the following observations are made. There are small to moderate bilateral pleural effusions, right greater than left. There is minimal ad jacent lung consolidation likely compressive atelectasis. There are diffuse tiny gallstones. There is no gross enlargement of the liver, pancreas, spleen or spleen. There is a sharply marginated round 16 mm left adrenal nodule. There are no renal calcifications or hydronephrosis. The caliber of the abdominal aorta is normal and there is no retroperitoneal adenopathy or hemorrhage . The bowel loops are normal in caliber is no evidence of obstruction. No inflammatory changes are iden tified in the mesentery. There is a small amount of fluid adjacent to the liver and there is a pocket of fluid in the left par acolic gutter. In the left paracolic gutter fluid collection, here is a drainage catheter presumably a peritoneal dialysis catheter. There is no pelvic mass, free fluid, abscess or adenopathy. The osseous structures and soft tissues are unremarkable. IMPRESSION: 1. [id number] bilateral pleural effusions and adjacent compressive atelectasis, right greater than left. 2. Moderate fluid in left paracolic gutter drainage catheter presumably a peritoneal drainage cathete r. 3. No retroperitoneal hemorrhage. 4. No bowel obstruction or inflammation. [facility], , 04/15/2024 12:08 PM
--- NOTE | 2024-04-15 12:18 | P.PN ---
Subjective Progress Note Date: 04/15/24 Pleasant 58-year-old patient follows with Dr. Harris. Chronic stable medical conditions include CAD, COPD, diabetes, GERD, hyperlipidemia, hypertension, end-stage kidney disease with hemodialysis, obstructive sleep apnea, PAD, left foot BKA with the prosthesis, home oxygen 2.5 L at night. CAD with stent right foot second, third fourth and fifth toe amputated. Patient is on peritoneal dialysis. Patient follows at the wound care, Dr. Denton Patient was recently in the hospital from March 31 through April 10. Patient had infected callus removed from the right foot. Subsequently started draining pus. Back to the OR for deep I&D. Deep tissue cultures positive for Proteus vulgaris. Patient to get a PICC line. Discharge on IV vancomycin and Rocephin. Patient is doing well when he got home. The previous night patient decided not to do his peritoneal dialysis. Nor was he able to take out his dialysate from the abdomen. Patient became short of breath brought to the ER. Had to be put on a BiPAP. Hypoxic. Nephrology was consulted and PD was ordered. When I came to see the patient patient is rather lethargic on the BiPAP April 12: Patient's BiPAP this morning. This afternoon sitting up in bed. Decreased appetite. Accu-Cheks are high. Given extra insulin. PD exchanges wi th 2 L every 4 hours with 4.25 solution for ultrafiltration. Also on IV Lasix. Being followed by nephrology. Spoke to the patient about being compliant with his peritoneal dialysis. Continue antibiotics. 04/13. Patient seen and examined. Blood work done this morning showed sodium 130 potassium 3.4, BUN 37, current 2.93. States breathing is improved. Still gets short of breath on exertion. 04/14. Patient seen and examined. States he feels better. Patient not comfortable going home today 04/15. Patient seen and examined. Blood work done this morning showed Hemoglobin of 6.2, patient being transfused monitor packed red blood cell. There is no complaint of any blood in the stools. Denies any nausea or vomiting. REVIEW OF SYSTEMS: CONSTITUTIONAL: No fever, no malaise,. CARDIOVASCULAR: No chest pain, no palpitations, no syncope. PULMONARY: As mentioned above GASTROINTESTINAL: No diarrhea, no nausea, no vomiting, no abdominal pain. NEUROLOGICAL: No headaches, no weakness, PHYSICAL EXAMINATION: GENERAL: The patient is alert and oriented x3, chronically ill looking HEENT: Pupils are round and equally reacting to light. EOMI. No scleral icterus. No conjunctival pallor. Normocephalic, atraumatic. No pharyngeal erythema. No thyromegaly. CARDIOVASCULAR: S1 and S2 present. No murmurs, rubs, or gallops. PULMONARY: Chest is clear to auscultation, no wheezing or crackles. ABDOMEN: Soft, nontender, nondistended, normoactive bowel sounds. No palpable organomegaly. MUSCULOSKELETAL: Left BKA EXTREMITIES: No cyanosis, clubbing, or pedal edema. NEUROLOGICAL: Gross neurological examination did not reveal any focal deficits. SKIN: No rashes. Wound VAC in place Assessment and plan -Acute flash pulmonary edema secondary to patient not able to do his peritoneal dialysis, causing acute hypoxic respiratory failure -Acute hypoxic respiratory failure secondary to pulm edema: Slow to respond Continue ox supplementation Use BiPAP as needed Aggressive bronchopulmonary hygiene -Sepsis secondary to right foot infection with chronic wound -Acute on chronic right foot wound Initial wound cultures: Proteus vulgaris, Klebsiella oxytoca, MRSA Deep wound cultures postsurgical: Proteus vulgaris Continue IV Rocephin and vancomycin ID following -Acute on chronic congestive heart failure exacerbation from systolic dysfunction EF 45%: -End-stage kidney disease on peritoneal dialysis Continue peritoneal dialysis nephrology following -Anemia of chronic kidney disease Hemoglobin this morning is 6.2, will order 1 unit of packed red blood cell Ordered CT abdominal and pelvis without contrast to rule out retroperitoneal bleed Aranesp -Essential hypertension Toprol-XL 100 mg a day. Amlodipine 5 mg twice daily. Hydralazine-50 mg twice daily -Diabetes mellitus type 2, chronically insulin, uncontrolled with hyperglycemia Monitor blood sugar levels, continue current insulin regimen -BPH Flomax -Hyperlipidemia Lipitor 40mg nightly -Obesity BMI 38 Weight loss measures -Depression anxiety Prozac 40 mg twice daily -Diabetic peripheral neuropathy Neurontin 400 mg nightly -COPD in a current smoker inhalers -Chronic nicotine dependence cigarette smoker. Currently down to about 2 cigarettes a day Nicotine patch -Left below-knee amputation with a prosthesis. Right foot second third and fourth toe amputation. Labs and medication were reviewed.. Continue same treatment. Continue with symptomatic treatment. Resume home medication. Monitor labs and vitals. DVT and GI prophylaxis. Further recommendations as per clinical course of the patient Dictation was produced using [employer] dictation software. please excuse any grammatical, word or spelling errors. Objective - Vital Signs Vital signs: Vital Signs Temp 97.0 F L 04/15/24 11:40 Pulse 69 04/15/24 11:40 Resp 18 04/15/24 11:40 BP 130/62 04/15/24 11:40 Pulse Ox 96 04/15/24 11:40 FiO2 40 04/14/24 04:00 Intake & Output 04/14/24 04/15/24 04/15/24 18:59 06:59 18:59 Intake Total 1100 800 260 Output Total 200 120 100 Balance 900 680 160 Weight 125 kg Intake: IV 20 20 10 Invasive Line 1 20 20 10 Intake, IV Titration 600 Amount Sodium Ferric Gluconat- 100 Sucrose 125 mg In Sodium Chloride 0.9% 100 ml @ 100 mls/hr IVPB DAILY [facility] Rx#:[id number] Vancomycin 1,750 mg In 500 Sodium Chloride 0.9% 500 ml 500 ml @ 167 mls/hr IVPB ONCE ONE Rx#: [id number] Oral 480 780 250 Blood Product 0 Unit 0 Output: Urine 200 120 100 Other: Voiding Method Urinal Urinal Urinal # Voids 1 1 # Bowel Movements 1 1 - Labs CBC & Chem 7: 04/15/24 05:33 04/15/24 05:33 Labs: Abnormal Lab Results - Last 24 Hours (Table) 04/14/24 04/14/24 04/15/24 Range/Units 16:23 20:17 05:33 RBC 2.20 L (4.30-5.90) m/uL Hgb 6.2 L* (13.0-17.5) gm/dL Hct 19.7 L* (39.0-53.0) % Potassium (3.5-5.1) mmol/L BUN (9-20) mg/dL Creatinine (0.66-1.25) mg/dL Glucose (74-99) mg/dL POC Glucose (mg/dL) 220 H 165 H (70-110) mg/dL Calcium (8.4-10.2) mg/dL Total Bilirubin (0.2-1.3) mg/dL AST (17-59) U/L Alkaline Phosphatase (38-126) U/L Total Protein (6.3-8.2) g/dL Albumin (3.5-5.0) g/dL Crossmatch 04/15/24 04/15/24 04/15/24 Range/Units 05:33 06:13 07:03 RBC (4.30-5.90) m/uL Hgb (13.0-17.5) gm/dL Hct (39.0-53.0) % Potassium 3.4 L (3.5-5.1) mmol/L BUN 39 H (9-20) mg/dL Creatinine 3.70 H (0.66-1.25) mg/dL Glucose 137 H (74-99) mg/dL POC Glucose (mg/dL) 159 H (70-110) mg/dL Calcium 8.0 L (8.4-10.2) mg/dL Total Bilirubin <0.1 L (0.2-1.3) mg/dL AST 16 L (17-59) U/L Alkaline Phosphatase 128 H (38-126) U/L Total Protein 6.0 L (6.3-8.2) g/dL Albumin 2.5 L (3.5-5.0) g/dL Crossmatch See Detail 04/15/24 Range/Units 11:39 RBC (4.30-5.90) m/uL Hgb (13.0-17.5) gm/dL Hct (39.0-53.0) % Potassium (3.5-5.1) mmol/L BUN (9-20) mg/dL Creatinine (0.66-1.25) mg/dL Glucose (74-99) mg/dL POC Glucose (mg/dL) 205 H (70-110) mg/dL Calcium (8.4-10.2) mg/dL Total Bilirubin (0.2-1.3) mg/dL AST (17-59) U/L Alkaline Phosphatase (38-126) U/L Total Protein (6.3-8.2) g/dL Albumin (3.5-5.0) g/dL Crossmatch
[2024-04-15 16:32] LABS: Glucose,Whole Blood 226 mg/dL (70-110)
--- NOTE | 2024-04-15 16:48 | P.PN ---
Subjective Progress Note Date: 04/15/24 Principal diagnosis: Reason for follow-up is right diabetic foot ulcer and osteomyelitis Patient is a 58-year-old male with a past medical history significant for coronary disease diabetes mellitus hypertension hyperlipidemia end-stage renal disease on peritoneal dialysis recent admission to the hospital with a right diabetic foot infection status post surgical debridement culture positive for MRSA Proteus and Klebsiella for the patient was getting antibiotic outpatient setting presented hospital with increasing shortness of breath likely related to fluid overload. On today's evaluation that is 04/15/2024,the patient remains to be afebrile, patient is on BiPAP supplemental oxygen and denies any worsening shortness of breath no chest pain or cough.Patient denies having any nausea or vomiting, no abdominal pain and no diarrhea has been reported. Patient did have a drop in hemoglobin to 6.2 white count is 8.6 creatinine 3.70 Objective - Vital Signs Vital signs: Vital Signs Temp 97.0 F L 04/15/24 11:40 Pulse 69 04/15/24 11:40 Resp 18 04/15/24 11:40 BP 130/62 04/15/24 11:40 Pulse Ox 96 04/15/24 11:40 FiO2 40 04/15/24 12:23 Intake & Output 04/14/24 04/15/24 04/15/24 18:59 06:59 18:59 Intake Total 1100 800 580 Output Total 200 120 225 Balance 900 680 355 Weight 125 kg Intake: IV 20 20 20 Invasive Line 1 20 20 20 Intake, IV Titration 600 Amount Sodium Ferric Gluconat- 100 Sucrose 125 mg In Sodium Chloride 0.9% 100 ml @ 100 mls/hr IVPB DAILY [facility] Rx#:[id number] Vancomycin 1,750 mg In 500 Sodium Chloride 0.9% 500 ml 500 ml @ 167 mls/hr IVPB ONCE ONE Rx#: [id number] Oral 480 780 250 Blood Product 310 Rc As-1 Unit 310 [id number] Output: Urine 200 120 225 Other: Voiding Method Urinal Urinal Urinal # Voids 1 1 # Bowel Movements 1 1 - Exam GENERAL DESCRIPTION: Middle-aged male lying in bed in no distress RESPIRATORY SYSTEM: Unlabored breathing , decreased breath sounds at bases HEART: S1 S2 regular rate and rhythm , ABDOMEN: Soft , no tenderness EXTREMITIES: Right foot wound is covered with a wound VAC - Labs CBC & Chem 7: 04/15/24 05:33 04/15/24 05:33 Labs: Abnormal Lab Results - Last 24 Hours (Table) 04/14/24 04/15/24 04/15/24 Range/Units 20:17 05:33 05:33 RBC 2.20 L (4.30-5.90) m/uL Hgb 6.2 L* (13.0-17.5) gm/dL Hct 19.7 L* (39.0-53.0) % Potassium 3.4 L (3.5-5.1) mmol/L BUN 39 H (9-20) mg/dL Creatinine 3.70 H (0.66-1.25) mg/dL Glucose 137 H (74-99) mg/dL POC Glucose (mg/dL) 165 H (70-110) mg/dL Calcium 8.0 L (8.4-10.2) mg/dL Total Bilirubin <0.1 L (0.2-1.3) mg/dL AST 16 L (17-59) U/L Alkaline Phosphatase 128 H (38-126) U/L Total Protein 6.0 L (6.3-8.2) g/dL Albumin 2.5 L (3.5-5.0) g/dL Crossmatch 04/15/24 04/15/24 04/15/24 Range/Units 06:13 07:03 11:39 RBC (4.30-5.90) m/uL Hgb (13.0-17.5) gm/dL Hct (39.0-53.0) % Potassium (3.5-5.1) mmol/L BUN (9-20) mg/dL Creatinine (0.66-1.25) mg/dL Glucose (74-99) mg/dL POC Glucose (mg/dL) 159 H 205 H (70-110) mg/dL Calcium (8.4-10.2) mg/dL Total Bilirubin (0.2-1.3) mg/dL AST (17-59) U/L Alkaline Phosphatase (38-126) U/L Total Protein (6.3-8.2) g/dL Albumin (3.5-5.0) g/dL Crossmatch See Detail 04/15/24 Range/Units 16:30 RBC (4.30-5.90) m/uL Hgb (13.0-17.5) gm/dL Hct (39.0-53.0) % Potassium (3.5-5.1) mmol/L BUN (9-20) mg/dL Creatinine (0.66-1.25) mg/dL Glucose (74-99) mg/dL POC Glucose (mg/dL) 226 H (70-110) mg/dL Calcium (8.4-10.2) mg/dL Total Bilirubin (0.2-1.3) mg/dL AST (17-59) U/L Alkaline Phosphatase (38-126) U/L Total Protein (6.3-8.2) g/dL Albumin (3.5-5.0) g/dL Crossmatch Assessment and Plan (1) Diabetic infection of right foot Current Visit: Yes Status: Acute Code(s): E11.628 - TYPE 2 DIABETES MELLITUS WITH OTHER SKIN COMPLICATIONS; L08.9 - LOCAL INFECTION OF THE SKIN AND SUBCUTANEOUS TISSUE, UNSP SNOMED Code(s): 665168625 (2) Foot osteomyelitis, right Current Visit: Yes Status: Acute Code(s): M86.9 - OSTEOMYELITIS, UNSPECIFIED SNOMED Code(s): 3115176296239252 (3) MRSA (methicillin resistant Staphylococcus aureus) infection Current Visit: Yes Status: Acute Code(s): A49.02 - METHICILLIN RESIS STAPH INFECTION, UNSP SITE SNOMED Code(s): 650753604 Plan: 1patient with a recent admission to the hospital with extensive right diabetic foot infection in this patient who is status post surgical debridement culture positive for MRSA Proteus and Klebsiella for the patient has been on IV vancomycin Rocephin in the outpatient setting who presented to hospital with i ncreasing shortness of breath more likely due to fluid overload clinically not behaving as pneumonia 2-patient local wound care to continue with the wound VAC to be changed Tuesday 3patient remains to be afebrile white count normal, continue with vancomycin pharmacy to dose target of 15 and Rocephin 2 g daily and monitor clinical course closely Dictation was produced using [employer] dictation software. please excuse any grammatical, word or spelling errors. Time with Patient: Less than 30
[2024-04-15 20:01] LABS: Glucose,Whole Blood 175 mg/dL (70-110)
[2024-04-16 06:22] LABS: Glucose,Whole Blood 245 mg/dL (70-110)
[2024-04-16 07:03] LABS: HCT 21.8 % (39.0-53.0); HGB 7.1 gm/dL (13.0-17.5); Hypochromasia Slight; MCH 28.8 pg (25.0-35.0); MCHC 32.5 g/dL (31.0-37.0); MCV 88.6 fL (80.0-100.0); Mean Platelet Volume 8.9; Platelet Count 359 k/uL (150-450); Poikilocytosis Slight; RBC 2.46 m/uL (4.30-5.90); RDW 15.3 % (11.5-15.5); WBC 9.1 k/uL (3.8-10.6)
[2024-04-16 07:04] LABS: ALT 16 U/L (4-49); AST 15 U/L (17-59); African American GFR (CKD) 16 (>60 ml/min/1.73 sqM); Albumin 2.6 g/dL (3.5-5.0); Alkaline Phosphatase 129 U/L (38-126); Anion Gap 6 mmol/L; Blood Urea Nitrogen 40 mg/dL (9-20); Carbon Dioxide 31 mmol/L (22-30); Chloride 101 mmol/L (98-107); Glucose 230 mg/dL (74-99); Magnesium 1.6 mg/dL (1.6-2.3); Non-African American GFR(CKD) 14 (>60 ml/min/1.73 sqM); Potassium 3.6 mmol/L (3.5-5.1); Sodium 138 mmol/L (137-145); Total Bilirubin 0.2 mg/dL (0.2-1.3); Total Protein 6.2 g/dL (6.3-8.2)
[2024-04-16] MEDS: ISOSORBIDE MONONITRATE ER 30 MG TAB.ER.24H PO STA (10:43)
[2024-04-16 11:21] LABS: Glucose,Whole Blood 219 mg/dL (70-110)
--- NOTE | 2024-04-16 12:41 | P.PN ---
Subjective HISTORY OF PRESENT ILLNESS: This is a 58-year-old male patient of Dr. Arenas with past medical history of coronary artery disease status post stenting of the RCA and recently the LAD, hypertension, dyslipidemia, cardiomyopathy, end-stage renal disease currently on peritoneal dialysis, overweight, sleep apnea and status post left below the knee amputation. We have been asked to evaluate the patient for abnormal rhythm. Patient states that he was just discharged on 04/10 due to right foot wound and sepsis. He returned to the hospital due to significant shortness of breath. He also had some chest pain last night and felt some palpitations. Now he just feels a little dizzy. He did utilize CPAP during the night. He states he is normally on 3 L nasal cannula at home but was increased to 6 L by EMS. Patient was started on IV Lasix 80 mg twice daily. Blood pressure 126/59, heart rate 69, pulse ox 98% on 4 L nasal cannula, afebrile. EKG: Sinus rhythm with IVCD, telemetry reviewed, patient had episode of NSVT. Chest x-ray: Cardiomegaly with findings suggestive of mild to moderate CHF. Laboratory studies: WBC 13.1, hemoglobin 7.2. Sodium 138, potassium 3.4, BUN 37 creatinine 2.93, CO2 33. Troponin negative x 1. proBNP 14,600. Home cardiac medications: Amlodipine 5 mg twice daily, aspirin 81 mg daily, atorvastatin 40 mg at bedtime, hydralazine 50 mg twice daily, Imdur 60 mg daily, Toprol XL 100 mg daily, Nitrostat as needed, Brilinta 90 mg twice daily, torsemide 20 mg twice daily. Echocardiogram performed 12/17/2023 was limited study with EF of 40 to 45%. Cardiac catheterization history, 03/09/2024: Patent stent in the mid RCA, intermediate disease involving the mid to distal RCA, intermediate to severe disease involving the LAD. Abnormal IFR. Patient underwent PCI with stenting of the mid LAD 02/20/2024. 04/16/2024 Patient examined this morning at the bedside. Patient currently denies chest pain or pressure. He denies shortness of breath. He is maintained on oral diuretics. He is undergoing peritoneal dialysis without complications. He has been followed by nephrology. Patient does report minimal urine output. Vital signs are stable. Blood pressure 137/69. PHYSICAL EXAM: VITAL SIGNS: Reviewed. GENERAL: Well-developed in no acute distress. NECK: Supple. No JVD or thyromegaly LUNGS: Respirations even and unlabored. Lungs essentially clear to auscultation bilaterally. HEART: Regular rate and rhythm. S1 and S2 heard. Systolic murmur. EXTREMITIES: Normal range of motion. No clubbing or cyanosis. Left AKA. ASSESSMENT: Volume overload CAD with most recent stenting of the LAD 02/20/2024 Acute on chronic hypoxic respiratory failure on home O2 at 3 L nasal cannula End-stage renal disease on peritoneal dialysis PAD with previous left below the knee amputation Chronic right foot wound and recent admission for sepsis with recent surgical debridement with cultures positive for MRSA Proteus and Klebsiella Obstructive sleep apnea Hypertension Dyslipidemia Ischemic cardiomyopathy, 40 to 45% PLAN: Continue current cardiac medications Continue telemetry monitoring Continue peritoneal dialysis. Nephrology following Continue antibiotics per infectious disease Patient is currently stable from a cardiac standpoint Further recommendations pending patient course Patient to follow-up postdischarge with Dr. Arenas Nurse practitioner note has been reviewed by physician. Signing provider agrees with the documented findings, assessment, and plan of care documented by [employer] as a scribe. Objective - Vital Signs Vital signs: Vital Signs Temp 98.2 F 04/16/24 12:00 Pulse 71 04/16/24 12:00 Resp 14 04/16/24 12:00 BP 137/69 04/16/24 12:00 Pulse Ox 98 04/16/24 12:00 FiO2 40 04/15/24 12:23 Intake & Output 04/15/24 04/16/24 04/16/24 18:59 06:59 18:59 Intake Total 580 500 866 Output Total 225 Balance 355 500 866 Weight 118.5 kg Intake: IV 20 20 10 Invasive Line 1 20 20 10 Intake, IV Titration 100 Amount Sodium Ferric Gluconat- 100 Sucrose 125 mg In Sodium Chloride 0.9% 100 ml @ 100 mls/hr IVPB DAILY [facility] Rx#:[id number] Oral 250 480 756 Blood Product 310 Rc As-1 Unit 310 [id number] Output: Urine 225 Other: Voiding Method Urinal Urinal Urinal # Voids 1 2 # Bowel Movements 2 - Labs CBC & Chem 7: 04/16/24 05:55 04/16/24 05:55 Labs: Abnormal Lab Results - Last 24 Hours (Table) 04/15/24 04/15/2404/15/24 Range/Units 07:03 16:30 19:59 RBC (4.30-5.90) m/uL Hgb (13.0-17.5) gm/dL Hct (39.0-53.0) % Carbon Dioxide (22-30) mmol/L BUN (9-20) mg/dL Creatinine (0.66-1.25) mg/dL Glucose (74-99) mg/dL POC Glucose (mg/dL) 226 H 175 H (70-110) mg/dL Calcium (8.4-10.2) mg/dL AST (17-59) U/L Alkaline Phosphatase (38-126) U/L Total Protein (6.3-8.2) g/dL Albumin (3.5-5.0) g/dL Crossmatch See Detail 04/16/24 04/16/24 04/16/24 Range/Units 05:55 05:55 06:20 RBC 2.46 L (4.30-5.90) m/uL Hgb 7.1 L (13.0-17.5) gm/dL Hct 21.8 L (39.0-53.0) % Carbon Dioxide 31 H (22-30) mmol/L BUN 40 H (9-20) mg/dL Creatinine 4.37 H (0.66-1.25) mg/dL Glucose 230 H (74-99) mg/dL POC Glucose (mg/dL) 245 H (70-110) mg/dL Calcium 8.0 L (8.4-10.2) mg/dL AST 15 L (17-59) U/L Alkaline Phosphatase 129 H (38-126) U/L Total Protein 6.2 L (6.3-8.2) g/dL Albumin 2.6 L (3.5-5.0) g/dL Crossmatch 04/16/24 Range/Units 11:19 RBC (4.30-5.90) m/uL Hgb (13.0-17.5) gm/dL Hct (39.0-53.0) % Carbon Dioxide (22-30) mmol/L BUN (9-20) mg/dL Creatinine (0.66-1.25) mg/dL Glucose (74-99) mg/dL POC Glucose (mg/dL) 219 H (70-110) mg/dL Calcium (8.4-10.2) mg/dL AST (17-59) U/L Alkaline Phosphatase (38-126) U/L Total Protein (6.3-8.2) g/dL Albumin (3.5-5.0) g/dL Crossmatch
--- NOTE | 2024-04-16 13:23 | P.GSCN ---
History of Present Illness History of present illness: 58-year-old gentleman well-known to me was in the hospital on 31 March we did extensive debridement of the foot with wound VAC she is an IV antibiotic under care of infectious disease. Went home with shortness of breath but got readmitted. Patient also has history of chronic renal failure on peritoneal dialysis Surgical history patient had a left BKA potation done in the past and also patient had a extensive debridement of the wound on the right foot examination Chest is clear with some crackles lung bases Abdomen soft patient has a peritoneal dialysis Vascular femorals are 1+ left BKA stump is healed patient has a wound on the right foot wound VAC which be continued this to be changed 3 times a week IV antibiotic under care of infectious disease Plan is patient have antibiotic and infectious disease if discharge patient will follow with the wound clinic at [facility] we will follow with you Past Medical History Past Medical History: Coronary Artery Disease (CAD), Heart Failure, COPD, Diabetes Mellitus, Eye Disorder, GERD/Reflux, Hyperlipidemia, Hypertension, Myocardial Infarction (AL), Osteoarthritis (OA), Renal Disease, Respiratory Disorder, Sleep Apnea/CPAP/BIPAP, Vascular Disorder Additional Past Medical History / Comment(s): Poor circulation in hands and legs/feet. 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 does not wear cpap Last Myocardial Infarction Date:: 2014 History of Any Multi-Drug Resistant Organisms: MRSA Year Discovered:: 04/01/24 MDRO Source:: right foot Past Surgical History: Heart Catheterization With Stent, Hernia Repair, Tonsillectomy Additional Past Surgical History / Comment(s): Right foot 3rd and 4th AND 5TH toes and area of foot amputated, cyst on scrotum removed. partial amp lt foot but had non healing wound which resulted in lt bka. matilde cataracts removed-has lens implants. x3 rt inguinal hernia sx and an umb hernia repair. BELOW KNEE AMPUTATION , COLONOSCOPY Stent LADx1 03/09/2024-(R) Groin manual pull Past Anesthesia/Blood Transfusion Reactions: No Reported Reaction Additional Past Anesthesia/Blood Transfusion Reaction / Comm: States he was in the ICU after his surgery on his toes, but does not know why. Date of Last Stent Placement:: 05/2015 APPROX Past Psychological History: Anxiety, Depression, Panic Disorder Smoking Status: Current some day smoker - Past Family History Father History Unknown: Yes Mother History Unknown: Yes Family Medical History: Cancer, Coronary Artery Disease (CAD) Additional Family Medical History / Comment(s): benign Brain tumor, Berhane syndrome Sister(s) Family Medical History: No Reported History Medications and Allergies Home Medications Medication Instructions Recorded Confirmed Type Tamsulosin [Flomax] 0.4 mg PO DAILY 04/14/18 04/12/24 History Albuterol Inhaler [Ventolin Hfa 1 - 2 puff INHALATION RT-Q6H PRN 03/09/19 04/12/24 History Inhaler] Isosorbide Mononitrate ER [Imdur] 60 mg PO DAILY 03/11/22 04/12/24 History Pantoprazole [Protonix] 80 mg PO HS 03/11/22 04/12/24 History oxyCODONE-APAP 10-325MG [Percocet 1 tab PO Q6H PRN 03/11/22 04/12/24 History 10-325 mg] FLUoxetine HCL [PROzac] 40 mg PO BID 09/11/23 04/12/24 History Gabapentin [Neurontin] 400 mg PO HS 09/11/23 04/12/24 History Insulin NPH/Reg Insulin 70/30 See Protocol SQ AC-TID 09/11/23 04/12/24 History [humuLIN 70/30 VIAL] amLODIPine [Norvasc] 5 mg PO BID #60 tab 09/12/23 04/12/24 Rx Aspirin EC [Ecotrin Low Dose] 81 mg PO HS 12/16/23 04/12/24 History Loratadine 10 mg PO HS 12/16/23 04/12/24 History Nitroglycerin Sl Tabs [Nitrostat] 0.4 mg SL Q5M PRN 12/16/23 04/12/24 History Torsemide [Demadex] 20 mg PO BID 12/16/23 04/12/24 History allopurinoL [Zyloprim] 100 mg PO DAILY 12/16/23 04/12/24 History Atorvastatin [Lipitor] 40 mg PO HS #30 tab 12/25/23 04/12/24 Rx Metoprolol Succinate (ER) [Toprol 100 mg PO DAILY #30 tab 12/25/23 04/12/24 Rx XL] Ticagrelor [Brilinta] 90 mg PO BID #180 tab 03/10/24 04/12/24 Rx Psyllium Husk 100% [Metamucil 6 gm PO DAILY packet 04/10/24 04/12/24 Rx Packet] hydrALAZINE HCL [Apresoline] 50 mg PO BID #60 tab 04/10/24 04/12/24 Rx Allergies Allergy/AdvReac Type Severity Reaction Status Date / Time codeine AdvReac headache, Verified 04/12/24 08:38 DIZZY, N/V hydrocodone [From Vicodin] AdvReac Nausea & Verified 04/12/24 08:38 Vomiting tramadol AdvReac Nausea & Verified 04/12/24 08:38 Vomiting Surgical - Exam Vital Signs Temp Pulse Resp Pulse Ox 97.5 F L 87 26 H 92 L 04/11/24 20:14 04/11/24 20:14 04/11/24 20:14 04/11/24 20:14 Results - Labs 04/16/24 05:55 04/16/24 05:55 Abnormal Lab Results - Last 24 Hours (Table) 04/15/24 04/15/24 04/15/24 Range/Units 07:03 16:30 19:59 RBC (4.30-5.90) m/uL Hgb (13.0-17.5) gm/dL Hct (39.0-53.0) % Carbon Dioxide (22-30) mmol/L BUN (9-20) mg/dL Creatinine (0.66-1.25) mg/dL Glucose (74-99) mg/dL POC Glucose (mg/dL) 226 H 175 H (70-110) mg/dL Calcium (8.4-10.2) mg/dL AST (17-59) U/L Alkaline Phosphatase (38-126) U/L Total Protein (6.3-8.2) g/dL Albumin (3.5-5.0) g/dL Crossmatch See Detail 04/16/24 04/16/24 04/16/24 Range/Units 05:55 05:55 06:20 RBC 2.46 L (4.30-5.90) m/uL Hgb 7.1 L (13.0-17.5) gm/dL Hct 21.8 L (39.0-53.0) % Carbon Dioxide 31 H (22-30) mmol/L BUN 40 H (9-20) mg/dL Creatinine 4.37 H (0.66-1.25) mg/dL Glucose 230 H (74-99) mg/dL POC Glucose (mg/dL) 245 H (70-110) mg/dL Calcium 8.0 L (8.4-10.2) mg/dL AST 15 L (17-59) U/L Alkaline Phosphatase 129 H (38-126) U/L Total Protein 6.2 L (6.3-8.2) g/dL Albumin 2.6 L (3.5-5.0) g/dL Crossmatch 04/16/24 Range/Units 11:19 RBC (4.30-5.90) m/uL Hgb (13.0-17.5) gm/dL Hct (39.0-53.0) % Carbon Dioxide (22-30) mmol/L BUN (9-20) mg/dL Creatinine (0.66-1.25) mg/dL Glucose (74-99) mg/dL POC Glucose (mg/dL) 219 H (70-110) mg/dL Calcium (8.4-10.2) mg/dL AST (17-59) U/L Alkaline Phosphatase (38-126) U/L Total Protein (6.3-8.2) g/dL Albumin (3.5-5.0) g/dL Crossmatch Diabetes panel 04/16/24 Range/Units 05:55 Sodium 138 (137-145) mmol/L Potassium 3.6 (3.5-5.1) mmol/L Chloride 101 (98-107) mmol/L Carbon Dioxide 31 H (22-30) mmol/L BUN 40 H (9-20) mg/dL Creatinine 4.37 H (0.66-1.25) mg/dL Glucose 230 H (74-99) mg/dL Calcium 8.0 L (8.4-10.2) mg/dL AST 15 L (17-59) U/L ALT 16 (4-49) U/L Alkaline Phosphatase 129 H (38-126) U/L Total Protein 6.2 L (6.3-8.2) g/dL Albumin 2.6 L (3.5-5.0) g/dL Calcium panel 04/16/24 Range/Units 05:55 Calcium 8.0 L (8.4-10.2) mg/dL Albumin 2.6 L (3.5-5.0) g/dL Pituitary panel 04/16/24 Range/Units 05:55 Sodium 138 (137-145) mmol/L Potassium 3.6 (3.5-5.1) mmol/L Chloride 101 (98-107) mmol/L Carbon Dioxide 31 H (22-30) mmol/L BUN 40 H (9-20) mg/dL Creatinine 4.37 H (0.66-1.25) mg/dL Glucose 230 H (74-99) mg/dL Calcium 8.0 L (8.4-10.2) mg/dL Adrenal panel 04/16/24 Range/Units 05:55 Sodium 138 (137-145) mmol/L Potassium 3.6 (3.5-5.1) mmol/L Chloride 101 (98-107) mmol/L Carbon Dioxide 31 H (22-30) mmol/L BUN 40 H (9-20) mg/dL Creatinine 4.37 H (0.66-1.25) mg/dL Glucose 230 H (74-99) mg/dL Calcium 8.0 L (8.4-10.2) mg/dL Total Bilirubin 0.2 (0.2-1.3) mg/dL AST 15 L (17-59) U/L ALT 16 (4-49) U/L Alkaline Phosphatase 129 H (38-126) U/L Total Protein 6.2 L (6.3-8.2) g/dL Albumin 2.6 L (3.5-5.0) g/dL
--- NOTE | 2024-04-16 13:40 | P.PN ---
Subjective patient is seen for follow-up for end-stage renal disease. Currently maintained on peritoneal dialysis. Patient was admitted with volume overload. Volume status has improved. Currently maintained on 2.5% solution, 2 L every 4 hours. No UF noted with recent exchange. Objective - Vital Signs Vital signs: Vital Signs Temp 98.2 F 04/16/24 12:00 Pulse 71 04/16/24 12:00 Resp 14 04/16/24 12:00 BP 137/69 04/16/24 12:00 Pulse Ox 98 04/16/24 12:00 FiO2 40 04/15/24 12:23 Intake & Output 04/15/24 04/16/24 04/16/24 18:59 06:59 18:59 Intake Total 580 500 866 Output Total 225 Balance 355 500 866 Weight 118.5 kg Intake: IV 20 20 10 Invasive Line 1 20 20 10 Intake, IV Titration 100 Amount Sodium Ferric Gluconat- 100 Sucrose 125 mg In Sodium Chloride 0.9% 100 ml @ 100 mls/hr IVPB DAILY [facility] Rx#:[id number] Oral 250 480 756 Blood Product 310 Rc As-1 Unit 310 [id number] Output: Urine 225 Other: Voiding Method Urinal Urinal Urinal # Voids 1 2 # Bowel Movements 2 - Exam patient is awake, comfortable, no acute distress. Examination of the heart S1 and S2 Examination of the lungs bilateral breath sounds are heard Abdomen is soft nontender Examination lower extremity shows edema 1+, left BKA - Labs CBC & Chem 7: 04/16/24 05:55 04/16/24 05:55 Labs: Abnormal Lab Results - Last 24 Hours (Table) 04/15/24 04/15/24 04/15/24 Range/Units 07:03 16:30 19:59 RBC (4.30-5.90) m/uL Hgb (13.0-17.5) gm/dL Hct (39.0-53.0) % Carbon Dioxide (22-30) mmol/L BUN (9-20) mg/dL Creatinine (0.66-1.25) mg/dL Glucose (74-99) mg/dL POC Glucose (mg/dL) 226 H 175 H (70-110) mg/dL Calcium (8.4-10.2) mg/dL AST (17-59) U/L Alkaline Phosphatase (38-126) U/L Total Protein (6.3-8.2) g/dL Albumin (3.5-5.0) g/dL Crossmatch See Detail 04/16/24 04/16/24 04/16/24 Range/Units 05:55 05:55 06:20 RBC 2.46 L (4.30-5.90) m/uL Hgb 7.1 L (13.0-17.5) gm/dL Hct 21.8 L (39.0-53.0) % Carbon Dioxide 31 H (22-30) mmol/L BUN 40 H (9-20) mg/dL Creatinine 4.37 H (0.66-1.25) mg/dL Glucose 230 H (74-99) mg/dL POC Glucose (mg/dL) 245 H (70-110) mg/dL Calcium 8.0 L (8.4-10.2) mg/dL AST 15 L (17-59) U/L Alkaline Phosphatase 129 H (38-126) U/L Total Protein 6.2 L (6.3-8.2) g/dL Albumin 2.6 L (3.5-5.0) g/dL Crossmatch 04/16/24 Range/Units 11:19 RBC (4.30-5.90) m/uL Hgb (13.0-17.5) gm/dL Hct (39.0-53.0) % Carbon Dioxide (22-30) mmol/L BUN (9-20) mg/dL Creatinine (0.66-1.25) mg/dL Glucose (74-99) mg/dL POC Glucose (mg/dL) 219 H (70-110) mg/dL Calcium (8.4-10.2) mg/dL AST (17-59) U/L Alkaline Phosphatase (38-126) U/L Total Protein (6.3-8.2) g/dL Albumin (3.5-5.0) g/dL Crossmatch Assessment and Plan Assessment: 1. End-stage renal disease maintained on peritoneal dialysis. 2. Noncompliance with peritoneal dialysis. 3. Acute hypoxic respiratory failure secondary to volume overload. Improved. 4. Right foot wound status post debridement with wound VAC. On IV antibiotics. 5. Diabetes mellitus. 6. Coronary disease with cardiac stents. 7. Hypertension with chronic kidney disease. Controlled. 8. Anemia of chronic kidney disease. On Aranesp. Iron deficiency noted. 9. Hypomagnesemia from diuresis. Replaced. Better. 10. Volume overload Plan: change PD exchanges to 2.5% solution alternating with 4.25% solution every 6 hours. Increase Aranesp
[2024-04-16 16:50] LABS: Glucose,Whole Blood 238 mg/dL (70-110)
[2024-04-16] MEDS: DIALYSIS (PERIT 4.25%) 2500 ML 106.25 G/2,500 ML BAG INTRAPERIT SCH (17:17)
[2024-04-16 19:53] LABS: Glucose,Whole Blood 283 mg/dL (70-110)
[2024-04-16] MEDS: DIALYSIS (PERIT 2.5%) 2,500 ML 62.5 G/2,500 ML BAG INTRAPERIT SCH (23:19)
--- NOTE | 2024-04-17 02:13 | P.PN ---
Subjective Progress Note Date: 04/16/24 Pleasant 58-year-old patient follows with Dr. Harris. Chronic stable medical conditions include CAD, COPD, diabetes, GERD, hyperlipidemia, hypertension, end-stage kidney disease with hemodialysis, obstru ctive sleep apnea, PAD, left foot BKA with the prosthesis, home oxygen 2.5 L at night. CAD with stent right foot second, third fourth and fifth toe amputated. Patient is on peritoneal dialysis. Patient follows at the wound care, Dr. Denton Patient was recently in the hospital from March 31 through April 10. Patient had infected callus removed from the right foot. Subsequently started draining pus. Back to the OR for deep I&D. Deep tissue cultures positive for Proteus vulgaris. Patient to get a PICC line. Discharge on IV vancomycin and Rocephin. Patient is doing well when he got home. The previous night patient decided not to do his peritoneal dialysis. Nor was he able to take out his dialysate from the abdomen. Patient became short of breath brought to the ER. Had to be put on a BiPAP. Hypoxic. Nephrology was consulted and PD was ordered. When I came to see the patient patient is rather lethargic on the BiPAP April 12: Patient's BiPAP this morning. This afternoon sitting up in bed. Decreased appetite. Accu-Cheks are high. Given extra insulin. PD exchanges with 2 L every 4 hours with 4.25 solution for ultrafiltration. Also on IV Lasix. Being followed by nephrology. Spoke to the patient about being compliant with his peritoneal dialysis. Continue antibiotics. 04/13. Patient seen and examined. Blood work done this morning showed sodium 130 potassium 3.4, BUN 37, current 2.93. States breathing is improved. Still gets short of breath on exertion. 04/14. Patient seen and examined. States he feels better. Patient not comfortable going home today 04/15. Patient seen and examined. Blood work done this morning showedHemoglobin of 6.2, patient being transfused monitor packed red blood cell. There is no complaint of any blood in the stools. Denies any nausea or vomiting. 04/16/2024 Patient is seen in follow-up this morning with multiple consultations following. Patient continues to receive peritoneal dialysis with nephrology following and also with infectious disease and vascular surgery. Patient does continue with the wound VAC on the right foot and will continue. Patient's hemoglobin is 7.1 today and will give 1 unit of PRBC and follow-up on repeat labs. No active bleeding noted. Case management/social work following regarding discharge planning and patient may benefit from ECF. Patient is currently afebrile with no reports of worsening shortness of breath although continues to become dyspneic easily on exam, denies any chest pain or palpitations. REVIEW OF SYSTEMS: CONSTITUTIONAL: No fever, no malaise,. CARDIOVASCULAR: No chest pain, no palpitations, no syncope. PULMONARY: As mentioned above GASTROINTESTINAL: No diarrhea, no nausea, no vomiting, no abdominal pain. NEUROLOGICAL: No headaches, reports of generalized weakness, right foot pain PHYSICAL EXAMINATION: GENERAL: The patient is alert and oriented x3, chronically ill looking, elderly appearing, obese HEENT: Pupils are round and equally reacting to light. EOMI. No scleral icterus. No conjunctival pallor. Normocephalic, atraumatic. No pharyngeal erythema. No thyromegaly. CARDIOVASCULAR: S1 and S2 muffled PULMONARY: Diminished breath sounds bilaterally with a few scattered crackles at the bases. ABDOMEN: Soft, obese, nontender, nondistended, normoactive bowel sounds. No palpable organomegaly. MUSCULOSKELETAL: Left BKA, right foot wound VAC noted EXTREMITIES: No cyanosis, clubbing, or pedal edema. NEUROLOGICAL: Gross neurological examination did not reveal any focal deficits. Diffusely weak SKIN: No rashes. Wound VAC in place Assessment and plan -Acute flash pulmonary edema secondary to patient not able to do his peritoneal dialysis, causing acute hypoxic respiratory failure -Acute hypoxic respiratory failure secondary to pulm edema: Slow to respond Continue ox supplementation Use BiPAP as needed Aggressive bronchopulmonary hygiene -Sepsis secondary to right foot infection with chronic wound -Acute on chronic right foot wound Initial wound cultures: Proteus vulgaris, Klebsiella oxytoca, MRSA Deep wound cultures postsurgical: Proteus vulgaris Continue IV Rocephin and vancomycin ID following -Acute on chronic congestive heart failure exacerbation from systolic dysfunction EF 45%: -End-stage kidney disease on peritoneal dialysis Continue peritoneal dialysis nephrology following -Anemia of chronic kidney disease Hemoglobin this morning is 7.1, will order 1 unit of PRBC and follow-up with repeat labs -Essential hypertension Toprol-XL 100 mg a day. Amlodipine 5 mg twice daily. Hydralazine-50 mg twice daily -Diabetes mellitus type 2, chronically insulin, uncontrolled with hyperglycemia Monitor blood sugar levels, continue current insulin regimen -BPH Flomax -Hyperlipidemia Lipitor 40mg nightly -Obesity BMI 38 Weight loss measures -Depression anxiety Prozac 40 mg twice daily -Diabetic peripheral neuropathy Neurontin 400 mg nightly -COPD in a current smoker inhalers -Chronic nicotine dependence cigarette smoker. Currently down to about 2 cigarettes a day Nicotine patch -Left below-knee amputation with a prosthesis. Right foot second third and fourth toe amputation. Plan: The patient is continued on 3 S. with multiple consultations following including infectious disease, vascular surgery and patient will continue with local wound care and the wound VAC on the right foot and will follow with the wound care center in the outpatient setting. Patient is continued on IV antibiotics and will need to discuss further regarding discharge planning. Patient may benefit from ECF on discharge given significant wound care and antibiotic therapy. Patient's hemoglobin is 7.1 today and was given a unit of PRBC yesterday for hemoglobin of 6.2. Will transfuse 1 unit PRBC today and follow-up on repeat labs. No active bleeding noted at this time. Due to multiple complex medical issues, overall prognosis is guarded The impression and plan of care has been dictated by Kelsey Henriquez, Nurse Practitioner as directed. Dr. Papo MD I have performed a history and examination and MDM of this patient, discussed the same with the dictator, and agree with the dictator's assessment and plan as written ,documented as a scribe. Based on total visit time, I have performed more than 50% of the visit. Objective - Vital Signs Vital signs: Vital Signs Temp 98.3 F 04/17/24 00:43 Pulse 64 04/17/24 00:43 Resp 18 04/17/24 00:43 BP 118/65 04/17/24 00:43 Pulse Ox 98 04/17/24 00:43 FiO2 40 04/15/24 12:23 Intake & Output 04/16/24 04/16/24 04/17/24 06:59 18:59 06:59 Intake Total 500 2620 10 Balance 500 2620 10 Weight 118.5 kg Intake: IV 20 20 10 Invasive Line 1 20 20 10 Intake, IV Titration 200 Amount Sodium Ferric Gluconat- 200 Sucrose 125 mg In Sodium Chloride 0.9% 100 ml @ 100 mls/hr IVPB DAILY [facility] Rx#:[id number] Oral 480 1780 Blood Product 620 Rc As-1 Unit 310 [id number] Other: Voiding Method Urinal Urinal Urinal # Voids 2 # Bowel Movements 2 - Labs CBC & Chem 7: 04/16/24 05:55 04/16/24 05:55 Labs: Abnormal Lab Results - Last 24 Hours (Table) 04/15/24 04/16/24 04/16/24 Range/Units 07:03 05:55 05:55 RBC 2.46 L (4.30-5.90) m/uL Hgb 7.1 L (13.0-17.5) gm/dL Hct 21.8 L (39.0-53.0) % Carbon Dioxide 31 H (22-30) mmol/L BUN 40 H (9-20) mg/dL Creatinine 4.37 H (0.66-1.25) mg/dL Glucose 230 H (74-99) mg/dL POC Glucose (mg/dL) (70-110) mg/dL Calcium 8.0 L (8.4-10.2) mg/dL AST 15 L (17-59) U/L Alkaline Phosphatase 129 H (38-126) U/L Total Protein 6.2 L (6.3-8.2) g/dL Albumin 2.6 L (3.5-5.0) g/dL Crossmatch See Detail 04/16/24 04/16/24 04/16/24 Range/Units 06:20 11:19 16:47 RBC (4.30-5.90) m/uL Hgb (13.0-17.5) gm/dL Hct (39.0-53.0) % Carbon Dioxide (22-30) mmol/L BUN (9-20) mg/dL Creatinine (0.66-1.25) mg/dL Glucose (74-99) mg/dL POC Glucose (mg/dL) 245 H 219 H 238 H (70-110) mg/dL Calcium (8.4-10.2) mg/dL AST (17-59) U/L Alkaline Phosphatase (38-126) U/L Total Protein (6.3-8.2) g/dL Albumin (3.5-5.0) g/dL Crossmatch 04/16/24 Range/Units 19:51 RBC (4.30-5.90) m/uL Hgb (13.0-17.5) gm/dL Hct (39.0-53.0) % Carbon Dioxide (22-30) mmol/L BUN (9-20) mg/dL Creatinine (0.66-1.25) mg/dL Glucose (74-99) mg/dL POC Glucose (mg/dL) 283 H (70-110) mg/dL Calcium (8.4-10.2) mg/dL AST (17-59) U/L Alkaline Phosphatase (38-126) U/L Total Protein (6.3-8.2) g/dL Albumin (3.5-5.0) g/dL Crossmatch
[2024-04-17 06:15] VITALS: RESP 18
[2024-04-17 06:19] LABS: Basophils % (A) 0 %; Eosinophils # (A) 0.2 k/uL (0-0.7); Eosinophils % (A) 2 %; HCT 23.7 % (39.0-53.0); HGB 7.4 gm/dL (13.0-17.5); Hypochromasia Moderate; Lymphocytes # (A) 1.2 k/uL (1.0-4.8); Lymphocytes % (A) 16 %; MCH 28.1 pg (25.0-35.0); MCHC 31.4 g/dL (31.0-37.0); MCV 89.4 fL (80.0-100.0); Mean Platelet Volume 8.2; Monocytes # (A) 0.3 k/uL (0-1.0); Monocytes % (A) 5 %; Neutrophils # (A) 5.7 k/uL (1.3-7.7); Neutrophils % (A) 75 %; Platelet Count 353 k/uL (150-450); RBC 2.65 m/uL (4.30-5.90); RDW 15.6 % (11.5-15.5); WBC 7.6 k/uL (3.8-10.6)
[2024-04-17 06:31] LABS: Potassium 3.3 mmol/L (3.5-5.1)
[2024-04-17 06:32] LABS: ALT 16 U/L (4-49); AST 16 U/L (17-59); African American GFR (CKD) 14 (>60 ml/min/1.73 sqM); Albumin 2.5 g/dL (3.5-5.0); Alkaline Phosphatase 127 U/L (38-126); Anion Gap 5 mmol/L; Blood Urea Nitrogen 39 mg/dL (9-20); Calcium 7.8 mg/dL (8.4-10.2); Carbon Dioxide 33 mmol/L (22-30); Chloride 100 mmol/L (98-107); Glucose 190 mg/dL (74-99); Magnesium 1.7 mg/dL (1.6-2.3); Non-African American GFR(CKD) 12 (>60 ml/min/1.73 sqM); Sodium 138 mmol/L (137-145); Total Bilirubin 0.2 mg/dL (0.2-1.3); Total Protein 6.2 g/dL (6.3-8.2)
[2024-04-17 06:51] LABS: Glucose,Whole Blood 229 mg/dL (70-110)
[2024-04-17] MEDS: ISOSORBIDE MONONITRATE ER 30 MG TAB.ER.24H PO SCH (10:15)
--- NOTE | 2024-04-17 11:11 | P.PN ---
Subjective HISTORY OF PRESENT ILLNESS: This is a 58-year-old male patient of Dr. Arenas with past medical history of coronary artery disease status post stenting of the RCA and recently the LAD, hypertension, dyslipidemia, cardiomyopathy, end-stage renal disease currently on peritoneal dialysis, overweight, sleep apnea and status post left below the knee amputation. We have been asked to evaluate the patient for abnormal rhythm. Patient states that he was just discharged on 04/10 due to right foot wound and sepsis. He returned to the hospital due to significant shortness of breath. He also had some chest pain last night and felt some palpitations. Now he just feels a little dizzy. He did utilize CPAP during the night. He states he is normally on 3 L nasal cannula at home but was increased to 6 L by EMS. Patient was started on IV Lasix 80 mg twice daily. Blood pressure 126/59, heart rate 69, pulse ox 98% on 4 L nasal cannula, afebrile. EKG: Sinus rhythm with IVCD, telemetry reviewed, patient had episode of NSVT. Chest x-ray: Cardiomegaly with findings suggestive of mild to moderate CHF. Laboratory studies: WBC 13.1, hemoglobin 7.2. Sodium 138, potassium 3.4, BUN 37 creatinine 2.93, CO2 33. Troponin negative x 1. proBNP 14,600. Home cardiac medications: Amlodipine 5 mg twice daily, aspirin 81 mg daily, atorvastatin 40 mg at bedtime, hydralazine 50 mg twice daily, Imdur 60 mg daily, Toprol XL 100 mg daily, Nitrostat as needed, Brilinta 90 mg twice daily, torsemide 20 mg twice daily. Echocardiogram performed 12/17/2023 was limited study with EF of 40 to 45%. Cardiac catheterization history, 03/09/2024: Patent stent in the mid RCA, intermediate disease involving the mid to distal RCA, intermediate to severe disease involving the LAD. Abnormal IFR. Patient underwent PCI with stenting of the mid LAD 02/20/2024. 04/16/2024 Patient examined this morning at the bedside. Patient currently denies chest pain or pressure. He denies shortness of breath. He is maintained on oral diuretics. He is undergoing peritoneal dialysis without complications. He has been followed by nephrology. Patient does report minimal urine output. Vital signs are stable. Blood pressure 137/69. 04/17/2024 Patient examined this morning at the bedside. Patient reports having some occasional mild chest discomfort although improved from yesterday. His Imdur was increased yesterday. He reports having generalized pain and discomfort throughout his whole body. He is tolerating peritoneal dialysis well. Creatinine today 4.92. Vital signs are stable. PHYSICAL EXAM: VITAL SIGNS: Reviewed. GENERAL: Well-developed in no acute distress. NECK: Supple. No JVD or thyromegaly LUNGS: Respirations even and unlabored. Lungs essentially clear to auscultation bilaterally. HEART: Regular rate and rhythm. S1 and S2 heard. Systolic murmur. EXTREMITIES: Normal range of motion. No clubbing or cyanosis. Left BKA. ASSESSMENT: Volume overload CAD with most recent stenting of the LAD 02/20/2024 Acute on chronic hypoxic respiratory failure on home O2 at 3 L nasal cannula End-stage renal disease on peritoneal dialysis PAD with previous left below the knee amputation Chronic right foot wound and recent admission for sepsis with recent surgical debridement with cultures positive for MRSA Proteus and Klebsiella Obstructive sleep apnea Hypertension Dyslipidemia Ischemic cardiomyopathy, 40 to 45% PLAN: Continue current cardiac medications Continue telemetry monitoring Continue peritoneal dialysis. Nephrology following Continue antibiotics per infectious disease Patient is currently stable from a cardiac standpoint Further recommendations pending patient course Patient to follow-up postdischarge with Dr. Arenas Nurse practitioner note has been reviewed by physician. Signing provider agrees with the documented findings, assessment, and plan of care documented by MED[facility] as a scribe. Objective - Vital Signs Vital signs: Vital Signs Temp 97.4 F L 04/17/24 09:45 Pulse 64 04/17/24 09:45 Resp 18 04/17/24 09:45 BP 143/75 04/17/24 09:45 Pulse Ox 96 04/17/24 09:45 FiO2 40 04/17/24 05:00 Intake & Output 04/16/24 04/17/24 04/17/24 18:59 06:59 18:59 Intake Total 2620 10 510 Balance 2620 10 510 Weight 120.5 kg Intake: IV 20 10 10 Invasive Line 1 20 10 10 Intake, IV Titration 200 Amount Sodium Ferric Gluconat- 200 Sucrose 125 mg In Sodium Chloride 0.9% 100 ml @ 100 mls/hr IVPB DAILY [facility] Rx#:[id number] Oral 1780 500 Blood Product 620 Rc As-1 Unit 310 [id number] Other: Voiding Method Urinal Urinal Urinal # Voids 0 1 # Bowel Movements 0 - Labs CBC & Chem 7: 04/17/24 05:55 04/17/24 05:55 Labs: Abnormal Lab Results - Last 24 Hours (Table) 04/15/24 04/16/24 04/16/24 Range/Units 07:03 11:19 16:47 RBC (4.30-5.90) m/uL Hgb (13.0-17.5) gm/dL Hct (39.0-53.0) % RDW (11.5-15.5) % Potassium (3.5-5.1) mmol/L Carbon Dioxide (22-30) mmol/L BUN (9-20) mg/dL Creatinine (0.66-1.25) mg/dL Glucose (74-99) mg/dL POC Glucose (mg/dL) 219 H 238 H (70-110) mg/dL Calcium (8.4-10.2) mg/dL AST (17-59) U/L Alkaline Phosphatase (38-126) U/L Total Protein (6.3-8.2) g/dL Albumin (3.5-5.0) g/dL Crossmatch See Detail 04/16/24 04/17/24 04/17/24 Range/Units 19:51 05:55 05:55 RBC 2.65 L (4.30-5.90) m/uL Hgb 7.4 L (13.0-17.5) gm/dL Hct 23.7 L (39.0-53.0) % RDW 15.6 H (11.5-15.5) % Potassium 3.3 L (3.5-5.1) mmol/L Carbon Dioxide 33 H (22-30) mmol/L BUN 39 H (9-20) mg/dL Creatinine 4.92 H (0.66-1.25) mg/dL Glucose 190 H (74-99) mg/dL POC Glucose (mg/dL) 283 H (70-110) mg/dL Calcium 7.8 L (8.4-10.2) mg/dL AST 16 L (17-59) U/L Alkaline Phosphatase 127 H (38-126) U/L Total Protein 6.2 L (6.3-8.2) g/dL Albumin 2.5 L (3.5-5.0) g/dL Crossmatch 04/17/24 Range/Units 06:50 RBC (4.30-5.90) m/uL Hgb (13.0-17.5) gm/dL Hct (39.0-53.0) % RDW (11.5-15.5) % Potassium (3.5-5.1) mmol/L Carbon Dioxide (22-30) mmol/L BUN (9-20) mg/dL Creatinine (0.66-1.25) mg/dL Glucose (74-99) mg/dL POC Glucose (mg/dL) 229 H (70-110) mg/dL Calcium (8.4-10.2) mg/dL AST (17-59) U/L Alkaline Phosphatase (38-126) U/L Total Protein (6.3-8.2) g/dL Albumin (3.5-5.0) g/dL Crossmatch
[2024-04-17 11:30] LABS: Glucose,Whole Blood 233 mg/dL (70-110)
--- NOTE | 2024-04-17 12:51 | P.PN ---
Subjective patient is seen for follow-up for end-stage renal disease. Maintained on peritoneal dialysis. Patient was admitted with volume overload. Volume status has improved. Currently maintained on 4.25% solution alternating with 2.5% solution. Good UF noted at the 4.25% solution. Objective - Vital Signs Vital signs: Vital Signs Temp 97.4 F L 04/17/24 09:45 Pulse 64 04/17/24 09:45 Resp 18 04/17/24 09:45 BP 143/75 04/17/24 09:45 Pulse Ox 96 04/17/24 09:45 FiO2 40 04/17/24 05:00 Intake & Output 04/16/24 04/17/24 04/17/24 18:59 06:59 18:59 Intake Total 2620 10 510 Balance 2620 10 510 Weight 120.5 kg Intake: IV 20 10 10 Invasive Line 1 20 10 10 Intake, IV Titration 200 Amount Sodium Ferric Gluconat- 200 Sucrose 125 mg In Sodium Chloride 0.9% 100 ml @ 100 mls/hr IVPB DAILY [facility] Rx#:[id number] Oral 1780 500 Blood Product 620 Rc As-1 Unit 310 [id number] Other: Voiding Method Urinal Urinal Urinal # Voids 0 1 # Bowel Movements 0 - Exam patient is awake, comfortable, no acute distress. Examination of the heart S1 and S2 Examination of the lungs bilateral breath sounds are heard Abdomen is soft nontender Examination lower extremity shows edema 1+, left BKA - Labs CBC & Chem 7: 04/17/24 05:55 04/17/24 05:55 Labs: Abnormal Lab Results - Last 24 Hours (Table) 04/15/24 04/16/24 04/16/24 Range/Units 07:03 16:47 19:51 RBC (4.30-5.90) m/uL Hgb (13.0-17.5) gm/dL Hct (39.0-53.0) % RDW (11.5-15.5) % Potassium (3.5-5.1) mmol/L Carbon Dioxide (22-30) mmol/L BUN (9-20) mg/dL Creatinine (0.66-1.25) mg/dL Glucose (74-99) mg/dL POC Glucose (mg/dL) 238 H 283 H (70-110) mg/dL Calcium (8.4-10.2) mg/dL AST (17-59) U/L Alkaline Phosphatase (38-126) U/L Total Protein (6.3-8.2) g/dL Albumin (3.5-5.0) g/dL Crossmatch See Detail 04/17/24 04/17/24 04/17/24 Range/Units 05:55 05:55 06:50 RBC 2.65 L (4.30-5.90) m/uL Hgb 7.4 L (13.0-17.5) gm/dL Hct 23.7 L (39.0-53.0) % RDW 15.6 H (11.5-15.5) % Potassium 3.3 L (3.5-5.1) mmol/L Carbon Dioxide 33 H (22-30) mmol/L BUN 39 H (9-20) mg/dL Creatinine 4.92 H (0.66-1.25) mg/dL Glucose 190 H (74-99) mg/dL POC Glucose (mg/dL) 229 H (70-110) mg/dL Calcium 7.8 L (8.4-10.2) mg/dL AST 16 L (17-59) U/L Alkaline Phosphatase 127 H (38-126) U/L Total Protein 6.2 L (6.3-8.2) g/dL Albumin 2.5 L (3.5-5.0) g/dL Crossmatch 04/17/24 Range/Units 11:29 RBC (4.30-5.90) m/uL Hgb (13.0-17.5) gm/dL Hct (39.0-53.0) % RDW (11.5-15.5) % Potassium (3.5-5.1) mmol/L Carbon Dioxide (22-30) mmol/L BUN (9-20) mg/dL Creatinine (0.66-1.25) mg/dL Glucose (74-99) mg/dL POC Glucose (mg/dL) 233 H (70-110) mg/dL Calcium (8.4-10.2) mg/dL AST (17-59) U/L Alkaline Phosphatase (38-126) U/L Total Protein (6.3-8.2) g/dL Albumin (3.5-5.0) g/dL Crossmatch Assessment and Plan Assessment: 1. End-stage renal disease maintained on peritoneal dialysis. 2. Noncompliance with peritoneal dialysis. 3. Acute hypoxic respiratory failure secondary to volume overload. Improved. 4. Right foot wound status post debridement with wound VAC. On IV antibiotics. 5. Diabetes mellitus. 6. Coronary disease with cardiac stents. 7. Hypertension with chronic kidney disease. Controlled. 8. Anemia of chronic kidney disease. On Aranesp. Iron deficiency noted. 9. Hypomagnesemia from diuresis. Replaced. Better. 10. Volume overload Plan: continue current PD exchanges Check bladder scan to rule out urine retention Increase Aranesp
--- NOTE | 2024-04-17 14:32 | P.PN ---
Subjective Progress Note Date: 04/16/24 Principal diagnosis: Reason for follow-up is right diabetic foot ulcer and osteomyelitis Patient is a 58-year-old male with a past medical history significant for coronary disease diabetes mellitus hypertension hyperlipidemia end-stage renal disease on peritoneal dialysis recent admission to the hospital with a right diabetic foot infection status post surgical debridement culture positive for MRSA Proteus and Klebsiella for the patient was getting antibiotic outpatient setting presented hospital with increasing shortness of breath likely related to fluid overload. On today's evaluation that is 04/16/2024, the patient continues to be afebrile, the patient is on 4 L nasal cannula oxygen slightly and breathing comfortably, the Pt denies having any chest pain or cough, the patient denies having any abdominal pain no vomiting or any diarrhea denies pain to the right foot. Patient white count is 9.1 creatinine is 4.37 Objective - Vital Signs Vital signs: Vital Signs Temp 98.2 F 04/16/24 12:00 Pulse 71 04/16/24 12:00 Resp 14 04/16/24 12:00 BP 137/69 04/16/24 12:00 Pulse Ox 98 04/16/24 12:00 FiO2 40 04/15/24 12:23 Intake & Output 04/15/24 04/16/24 04/16/24 18:59 06:59 18:59 Intake Total 580 500 866 Output Total 225 Balance 355 500 866 Weight 118.5 kg Intake: IV 20 20 10 Invasive Line 1 20 20 10 Intake, IV Titration 100 Amount Sodium Ferric Gluconat- 100 Sucrose 125 mg In Sodium Chloride 0.9% 100 ml @ 100 mls/hr IVPB DAILY [facility] Rx#:[id number] Oral 250 480 756 Blood Product 310 Rc As-1 Unit 310 [id number] Output: Urine 225 Other: Voiding Method Urinal Urinal Urinal # Voids 1 2 # Bowel Movements 2 - Exam GENERAL DESCRIPTION: Middle-aged male lying in bed in no distress RESPIRATORY SYSTEM: Unlabored breathing , decreased breath sounds at bases HEART: S1 S2 regular rate and rhythm , ABDOMEN: Soft , no tenderness EXTREMITIES: Right foot wound is covered with a wound VAC - Labs CBC & Chem 7: 04/17/24 05:55 04/17/24 05:55 Labs: Abnormal Lab Results - Last 24 Hours (Table) 04/15/24 04/15/24 04/15/24 Range/Units 07:03 16:30 19:59 RBC (4.30-5.90) m/uL Hgb (13.0-17.5) gm/dL Hct (39.0-53.0) % Carbon Dioxide (22-30) mmol/L BUN (9-20) mg/dL Creatinine (0.66-1.25) mg/dL Glucose (74-99) mg/dL POC Glucose (mg/dL) 226 H 175 H (70-110) mg/dL Calcium (8.4-10.2) mg/dL AST (17-59) U/L Alkaline Phosphatase (38-126) U/L Total Protein (6.3-8.2) g/dL Albumin (3.5-5.0) g/dL Crossmatch See Detail 04/16/24 04/16/24 04/16/24 Range/Units 05:55 05:55 06:20 RBC 2.46 L (4.30-5.90) m/uL Hgb 7.1 L (13.0-17.5) gm/dL Hct 21.8 L (39.0-53.0) % Carbon Dioxide 31 H (22-30) mmol/L BUN 40 H (9-20) mg/dL Creatinine 4.37 H (0.66-1.25) mg/dL Glucose 230 H (74-99) mg/dL POC Glucose (mg/dL) 245 H (70-110) mg/dL Calcium 8.0 L (8.4-10.2) mg/dL AST 15 L (17-59) U/L Alkaline Phosphatase 129 H (38-126) U/L Total Protein 6.2 L (6.3-8.2) g/dL Albumin 2.6 L (3.5-5.0) g/dL Crossmatch 04/16/24 Range/Units 11:19 RBC (4.30-5.90) m/uL Hgb (13.0-17.5) gm/dL Hct (39.0-53.0) % Carbon Dioxide (22-30) mmol/L BUN (9-20) mg/dL Creatinine (0.66-1.25) mg/dL Glucose (74-99) mg/dL POC Glucose (mg/dL) 219 H (70-110) mg/dL Calcium (8.4-10.2) mg/dL AST (17-59) U/L Alkaline Phosphatase (38-126) U/L Total Protein (6.3-8.2) g/dL Albumin (3.5-5.0) g/dL Crossmatch Assessment and Plan (1) Diabetic infection of right foot Current Visit: Yes Status: Acute Code(s): E11.628 - TYPE 2 DIABETES MELLITUS WITH OTHER SKIN COMPLICATIONS; L08.9 - LOCAL INFECTION OF THE SKIN AND SUBCUTANEOUS TISSUE, UNSP SNOMED Code(s): 287118789 (2) Foot osteomyelitis, right Current Visit: Yes Status: Acute Code(s): M86.9 - OSTEOMYELITIS, UNSPECIFIED SNOMED Code(s): 7601582145487432 (3) MRSA (methicillin resistant Staphylococcus aureus) infection Current Visit: Yes Status: Acute Code(s): A49.02 - METHICILLIN RESIS STAPH INFECTION, UNSP SITE SNOMED Code(s): 612203306 Plan: 1patient with a recent admission to the hospital with extensive right diabetic foot infection in this patient who is status post surgical debridement culture positive for MRSA Proteus and Klebsiella for the patient has been on IV vancomycin Rocephin in the outpatient setting who presented to hospital with increasing shortness of breath more likely due to fluid overload clinically not behaving as pneumonia 2-patient local wound care to continue with the wound VAC to be changed Tuesday 3patient remains to be afebrile white count normal, 4patient to continue with vancomycin pharmacy to dose target of 15 and Rocephin 2 g daily and continue supportive care Dictation was produced using [employer] dictation software. please excuse any grammatical, word or spelling errors. Time with Patient: Less than 30
--- NOTE | 2024-04-17 14:32 | P.PN ---
Subjective Progress Note Date: 04/17/24 Principal diagnosis: Reason for follow-up is right diabetic foot ulcer and osteomyelitis Patient is a 58-year-old male with a past medical history significant for coronary disease diabetes mellitus hypertension hyperlipidemia end-stage renal disease on peritoneal dialysis recent admission to the hospital with a right diabetic foot infection status post surgical debridement culture positive for MRSA Proteus and Klebsiella for the patient was getting antibiotic outpatient setting presented hospital with increasing shortness of breath likely related to fluid overload. On today's evaluation that is 04/17/2024, Patient is afebrile patient is currently on 4 L nasal cannula oxygen and denies having any worsening shortness of breath, the patient denies any chest pain or cough, the patient denies any nausea vomiting did not have any abdominal pain still complaining of some di zziness when he gets up no loss of consciousness. Patient white count 7.6, creatinine is 4.92 Objective - Vital Signs Vital signs: Vital Signs Temp 97.9 F 04/17/24 13:01 Pulse 61 04/17/24 13:01 Resp 18 04/17/24 13:01 BP 127/70 04/17/24 13:01 Pulse Ox 91 L 04/17/24 13:01 FiO2 40 04/17/24 05:00 Intake & Output 04/16/24 04/17/24 04/17/24 18:59 06:59 18:59 Intake Total 2620 10 510 Balance 2620 10 510 Weight 120.5 kg Intake: IV 20 10 10 Invasive Line 1 20 10 10 Intake, IV Titration 200 Amount Sodium Ferric Gluconat- 200 Sucrose 125 mg In Sodium Chloride 0.9% 100 ml @ 100 mls/hr IVPB DAILY [facility] Rx#:[id number] Oral 1780 500 Blood Product 620 Rc As-1 Unit 310 [id number] Other: Voiding Method Urinal Urinal Urinal # Voids 0 1 # Bowel Movements 0 - Exam GENERAL DESCRIPTION: Middle-aged male lying in bed in no distress RESPIRATORY SYSTEM: Unlabored breathing , decreased breath sounds at bases HEART: S1 S2 regular rate and rhythm , ABDOMEN: Soft , no tenderness EXTREMITIES: Right foot wound is covered with a wound VAC - Labs CBC & Chem 7: 04/17/24 05:55 04/17/24 05:55 Labs: Abnormal Lab Results - Last 24 Hours (Table) 04/15/24 04/16/24 04/16/24 Range/Units 07:03 16:47 19:51 RBC (4.30-5.90) m/uL Hgb (13.0-17.5) gm/dL Hct (39.0-53.0) % RDW (11.5-15.5) % Potassium (3.5-5.1) mmol/L Carbon Dioxide (22-30) mmol/L BUN (9-20) mg/dL Creatinine (0.66-1.25) mg/dL Glucose (74-99) mg/dL POC Glucose (mg/dL) 238 H 283 H (70-110) mg/dL Calcium (8.4-10.2) mg/dL AST (17-59) U/L Alkaline Phosphatase (38-126) U/L Total Protein (6.3-8.2) g/dL Albumin (3.5-5.0) g/dL Crossmatch See Detail 04/17/24 04/17/24 04/17/24 Range/Units 05:55 05:55 06:50 RBC 2.65 L (4.30-5.90) m/uL Hgb 7.4 L (13.0-17.5) gm/dL Hct 23.7 L (39.0-53.0) % RDW 15.6 H (11.5-15.5) % Potassium 3.3 L (3.5-5.1) mmol/L Carbon Dioxide 33 H (22-30) mmol/L BUN 39 H (9-20) mg/dL Creatinine 4.92 H (0.66-1.25) mg/dL Glucose 190 H (74-99) mg/dL POC Glucose (mg/dL) 229 H (70-110) mg/dL Calcium 7.8 L (8.4-10.2) mg/dL AST 16 L (17-59) U/L Alkaline Phosphatase 127 H (38-126) U/L Total Protein 6.2 L (6.3-8.2) g/dL Albumin 2.5 L (3.5-5.0) g/dL Crossmatch 04/17/24 Range/Units 11:29 RBC (4.30-5.90) m/uL Hgb (13.0-17.5) gm/dL Hct (39.0-53.0) % RDW (11.5-15.5) % Potassium (3.5-5.1) mmol/L Carbon Dioxide (22-30) mmol/L BUN (9-20) mg/dL Creatinine (0.66-1.25) mg/dL Glucose (74-99) mg/dL POC Glucose (mg/dL) 233 H (70-110) mg/dL Calcium (8.4-10.2) mg/dL AST (17-59) U/L Alkaline Phosphatase (38-126) U/L Total Protein (6.3-8.2) g/dL Albumin (3.5-5.0) g/dL Crossmatch Assessment and Plan (1) Diabetic infection of right foot Current Visit: Yes Status: Acute Code(s): E11.628 - TYPE 2 DIABETES MELLITUS WITH OTHER SKIN COMPLICATIONS; L08.9 - LOCAL INFECTION OF THE SKIN AND EVANGELISTA BCUTANEOUS TISSUE, UNSP SNOMED Code(s): 751120361 (2) Foot osteomyelitis, right Current Visit: Yes Status: Acute Code(s): M86.9 - OSTEOMYELITIS, UNSPECIFIED SNOMED Code(s): 8159809651619123 (3) MRSA (methicillin resistant Staphylococcus aureus) infection Current Visit: Yes Status: Acute Code(s): A49.02 - METHICILLIN RESIS STAPH INFECTION, UNSP SITE SNOMED Code(s): 140209446 Plan: 1patient with a recent admission to the hospital with extensive right diabetic foot infection in this patient who is status post surgical debridement culture positive for MRSA Proteus and Klebsiella for the patient has been on IV vancomycin Rocephin in the outpatient setting who presented to hospital with inc reasing shortness of breath more likely due to fluid overload clinically not behaving as pneumonia 2-patient local wound care to continue with the wound VAC to be changed Tuesday 3patient remains to be afebrile white count normal, 4plan is to patient to continue with vancomycin pharmacy to dose target of 15 and Rocephin 2 g daily for his underlying osteomyelitis to finish 6-week course of therapy prescription already provided to the case monitor Dictation was produced using [employer] software. please excuse any grammatical, word or spelling errors. Time with Patient: Less than 30
--- NOTE | 2024-04-17 14:53 | P.DS ---
Providers Date of admission: 04/13/24 07:21 Expected date of discharge: 04/17/24 Attending physician: Ruben Paz Consults: 04/11/24 22:25 Consult Physician Routine Consulting Provider: Luciano Melendez Consult Reason/Comments: Peritoneal dialysis Do you want consulting provider notified?: Already Contacted Consult Physician Routine Consulting Provider: Mino Denton Consult Reason/Comments: Wound vac Do you want consulting provider notified?: Yes, Notify in am 04/12/24 09:03 Consult Physician Routine Consulting Provider: Donovan Zambrano Consult Reason/Comments: antibiotic management Do you want consulting provider notified?: Yes 04/12/24 13:40 Consult Physician Routine Consulting Provider: Dejah Del Cid Consult Reason/Comments: abnormal rhythm Do you want consulting provider notified?: Yes Primary care physician: [facility] Course: Chief Complaint: Short of breath Pleasant 58-year-old patient follows with Dr. Harris. Chronic stable medical conditions include CAD, COPD, diabetes, GERD, hyperlipidemia, hypertension, end-stage kidney disease with hemodialysis, obstructive sleep apnea, PAD, left foot BKA with the prosthesis, home oxygen 2.5 L at night. CAD with stent right foot second, third fourth and fifth toe amputated. Patient is on peritoneal dialysis. Patient follows at the wound care, Dr. Denton Patient was recently in the hospital from March 31 through April 10. Patient had infected callus removed from the right foot. Subsequently started draining pus. Back to the OR for deep I&D. Deep tissue cultures positive for Proteus vulgaris. Patient to get a PICC line. Discharge on IV vancomycin and Rocephin. Patient is doing well when he got home. The previous night patient decided not to do his peritoneal dialysis. Nor was he able to take out his dialysate from the abdomen. Patient became short of breath brought to the ER. Had to be put on a BiPAP. Hypoxic. Nephrology was consulted and PD was ordered. When I came to see the patient patient is rather lethargic on the BiPAP April 12: Patient's BiPAP this morning. This afternoon sitting up in bed. Decreased appetite. Accu-Cheks are high. Given extra insulin. PD exchanges with 2 L every 4 hours with 4.25 solution for ultrafiltration. Also on IV Lasix. Being followed by nephrology. Spoke to the patient about being compliant with his peritoneal dialysis. Continue antibiotics. 04/13. Patient seen and examined. Blood work done this morning showed sodium 130 potassium 3.4, BUN 37, current 2.93. States breathing is improved. Still gets short of breath on exertion. 04/14. Patient seen and examined. States he feels better. Patient not comfortable going home today 04/15. Patient seen and examined. Blood work done this morning showedHemoglobin of 6.2, patient being transfused monitor packed red blood cell. There is no complaint of any blood in the stools. Denies any nausea or vomiting. 04/16/2024 Patient is seen in follow-up this morning with multiple consultations following. Patient continues to receive peritoneal dialysis with nephrology following and also with infectious disease and vascular surgery. Patient does continue with the wound VAC on the right foot and will continue. Patient's hemoglobin is 7.1 today and will give 1 unit of PRBC and follow-up on repeat labs. No active bleeding noted. Case management/social work following regarding discharge planning and patient may benefit from ECF. Patient is currently afebrile with no reports of worsening shortness of breath although continues to become dyspneic easily on exam, denies any chest pain or palpitations. April 17: Sitting up in bed. Family visiting. Eating well. Minimal output through the wound VAC. Discussed with Dr. Wagner from [place]. Will get about 4 more weeks of IV ceftriaxone and vancomycin. Patient follow-up with Dr. Denton at the wound care center. He will also follow-up with Dr. Wagner for his antibiotic monitoring. Peritoneal dialysis to continue. Cleared by Dr. Tamez from nephrology. Discussed with patient. Breathing stable. On 2 L of nasal cannula with does use at home. Discussion and discharge planning more than 35 minutes Social history: Lives with his . Smokes about half a pack a day for many years-recently down to few cigarettes a day. No alcohol. Did use marijuana in the past. Physical examination: VITAL SIGNS: 97.9, 61, 18, 127 x 70, 91% room air GENERAL: Sitting up in bed, comfortable EYES: Pupils equal. Conjunctiva julieta l. HEENT: External appearance of nose and ears normal, oral cavity grossly normal. NECK: JVD unable to assess; masses not palpable. HEART: First and second heart sounds are normal; edema present LUNGS:[ Respiratory rate-increased, decreased breath sounds some crackles ABDOMEN: Soft, nontender, liver spleen not palpable, no masses palpable. PSYCH: AOx3, mood affect, slightly anxious MUSCULOSKELETAL: Left BKA. With prosthesis. Right foot second third and fourth toe amputated. Awaiting new wound VAC placement currently dressing in place INVESTIGATIONS, reviewed in the clinical context: April 17: White count 7.6 hemoglobin 7.4 platelets 353 potassium 3.3 BUN 39 creatinine 4.92 April 12: Sodium 136 potassium 3.9 BUN 41 creatinine 2.55 magnesium 1.5 April 11, 2024: White count 13.1 hemoglobin 7.2 platelets 394 sodium 140 potassium 3.6 BUN 41 creatinine 2.71 EKG tracing personally reviewed by me-normal sinus rhythm. ST-T wave changes Chest x-ray film personally reviewed by me-cardiomegaly, pulm edema From renal recent admission Deep wound cultures postsurgical showing Proteus vulgaris Assessment and plan: -Acute flash pulmonary edema secondary to patient not able to do his peritoneal dialysis, causing acute hypoxic respiratory failure: For peritoneal dialysis. As per nephrology -Acute hypoxic respiratory failure secondary to pulm edema: Resolved Initially BiPAP -Sepsis secondary to right foot infection with chronic wound that is being followed at the wound care center. Is followed by Dr. Denton from vascular.: Initial wound cultures: Proteus vulgaris, Klebsiella oxytoca, MRSA Deep wound cultures postsurgical: Proteus vulgaris . IV ceftriaxone per ID, vancomycin-will receive another 4 weeks of the same. Will be follow-up with Dr. Zambrano has a PICC line -Acute on chronic right foot wound which is being followed at wound care center., From underlying PAD Dr. Denton from vascular-carried out recent deep wound I&D right foot deep tissue cultures: Proteus vulgaris Wound VAC On IV vancomycin IV ceftriaxone Follow-up with Dr. Denton at the wound care center -Acute on chronic congestive heart failure exacerbation from systolic dysfunction EF 45%: Dialysis peritoneal. Demadex -End-stage kidney disease on peritoneal dialysis Nephrology following -Anemia of chronic kidney disease Aranesp -Essential hypertension Toprol-XL 100 mg a day. Amlodipine 5 mg twice daily. Hydralazine-50 mg twice daily -Diabetes mellitus type 2, chronically insulin, uncontrolled with hyperglycemia Follow Accu-Cheks with sliding scale insulin. NovoLog 70/30 18 units AC twice daily. 6 units with lunch. -BPH Flomax -Hyperlipidemia Lipitor 40mg nightly -Obesity BMI 38 Weight loss measures -Depression anxiety Prozac 40 mg twice daily -Diabetic peripheral neuropathy Neurontin 400 mg nightly -COPD in a current smoker inhalers -Chronic nicotine dependence cigarette smoker. Currently down to about 2 cigarettes a day Nicotine patch -Left below-knee amputation with a prosthesis. Right foot second third and fourth toe amputation. -Full code Disposition: Home Past Medical History Past Medical History: Coronary Artery Disease (CAD), Heart Failure, COPD, Diabetes Mellitus, Eye Disorder, GERD/Reflux, Hyperlipidemia, Hypertension, Myocardial Infarction (DC), Osteoarthritis (OA), Renal Disease, Respiratory Disorder, Sleep Apnea/CPAP/BIPAP, Vascular Disorder Additional Past Medical History / Comment(s): Poor circulation in hands and legs/feet. 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 does not wear cpap Last Myocardial Infarction Date:: 2014 History of Any Multi-Drug Resistant Organisms: MRSA Date of last positivie culture/infection: approx 2015 MDRO Source:: right foot Past Surgical History: Heart Catheterization With Stent, Hernia Repair, Tonsillectomy Additional Past Surgical History / Comment(s): Right foot 3rd and 4th AND 5TH toes and area of foot amputated, cyst on scrotum removed. partial amp lt foot but had non healing wound which resulted in lt bka. matilde cataracts removed-has lens implants. x3 rt inguinal hernia sx and an umb hernia repair. BELOW KNEE AMPUTATION , COLONOSCOPY Stent LADx1 03/09/2024-(R) Groin manual pull Past Anesthesia/Blood Transfusion Reactions: No Reported Reaction Additional Past Anesthesia/Blood Transfusion Reaction / Comment(s): States he was in the ICU after his surgery on his toes, but does not know why. Date of Last Stent Placement:: 05/2015 APPROX Past Psychological History: Anxiety, Depression, Panic Disorder Smoking Status: Current some day smoker Plan - Discharge Summary Discharge Rx Participant: Yes New Discharge Prescriptions: New Isosorbide Mononitrate ER [Imdur] 90 mg PO DAILY tab Insuln Asp Prt/Insulin Aspart [NovoLOG MIX 70-30 VIAL] 22 unit SQ AC-BID each Insuln Asp Prt/Insulin Aspart [NovoLOG MIX 70-30 VIAL] 12 unit SQ AC-LUNCH each cefTRIAXone [Rocephin] 2 gm IVPB Q24H each Continue Tamsulosin [Flomax] 0.4 mg PO DAILY Albuterol Inhaler [Ventolin Hfa Inhaler] 1 - 2 puff INHALATION RT-Q6H PRN PRN Reason: Shortness Of Breath Isosorbide Mononitrate ER [Imdur] 60 mg PO DAILY Pantoprazole [Protonix] 80 mg PO HS amLODIPine [Norvasc] 5 mg PO BID #60 tab Loratadine 10 mg PO HS Atorvastatin [Lipitor] 40 mg PO HS #30 tab Ticagrelor [Brilinta] 90 mg PO BID #180 tab hydrALAZINE HCL [Apresoline] 50 mg PO BID #60 tab oxyCODONE-APAP 10-325MG [Percocet 10-325 mg] 1 tab PO Q6H PRN PRN Reason: Pain Gabapentin [Neurontin] 400 mg PO HS FLUoxetine HCL [PROzac] 40 mg PO BID Insulin NPH/Reg Insulin 70/30 [humuLIN 70/30 VIAL] See Protocol SQ AC-TID allopurinoL [Zyloprim] 100 mg PO DAILY Torsemide [Demadex] 20 mg PO BID Aspirin EC [Ecotrin Low Dose] 81 mg PO HS Nitroglycerin Sl Tabs [Nitrostat] 0.4 mg SL Q5M PRN PRN Reason: Chest Pain Metoprolol Succinate (ER) [Toprol XL] 100 mg PO DAILY #30 tab Psyllium Husk 100% [Metamucil Packet] 6 gm PO DAILY packet Discharge Medication List Tamsulosin [Flomax] 0.4 mg PO DAILY 04/14/18 [History] Albuterol Inhaler [Ventolin Hfa Inhaler] 1 - 2 puff INHALATION RT-Q6H PRN 03/09/19 [History] Isosorbide Mononitrate ER [Imdur] 60 mg PO DAILY 03/11/22 [History] Pantoprazole [Protonix] 80 mg PO HS 03/11/22 [History] oxyCODONE-APAP 10-325MG [Percocet 10-325 mg] 1 tab PO Q6H PRN 03/11/22 [History] FLUoxetine HCL [PROzac] 40 mg PO BID 09/11/23 [History] Gabapentin [Neurontin] 400 mg PO HS 09/11/23 [History] Insulin NPH/Reg Insulin 70/30 [humuLIN 70/30 VIAL] See Protocol SQ AC-TID 09/11/23 [History] amLODIPine [Norvasc] 5 mg PO BID #60 tab 09/12/23 [Rx] Aspirin EC [Ecotrin Low Dose] 81 mg PO HS 12/16/23 [History] Loratadine 10 mg PO HS 12/16/23 [History] Nitroglycerin Sl Tabs [Nitrostat] 0.4 mg SL Q5M PRN 12/16/23 [History] Torsemide [Demadex] 20 mg PO BID 12/16/23 [History] allopurinoL [Zyloprim] 100 mg PO DAILY 12/16/23 [History] Atorvastatin [Lipitor] 40 mg PO HS #30 tab 12/25/23 [Rx] Metoprolol Succinate (ER) [Toprol XL] 100 mg PO DAILY #30 tab 12/25/23 [Rx] Ticagrelor [Brilinta] 90 mg PO BID #180 tab 03/10/24 [Rx] Psyllium Husk 100% [Metamucil Packet] 6 gm PO DAILY packet 04/10/24 [Rx] hydrALAZINE HCL [Apresoline] 50 mg PO BID #60 tab 04/10/24 [Rx] Insuln Asp Prt/Insulin Aspart [NovoLOG MIX 70-30 VIAL] 12 unit SQ AC-LUNCH each 04/17/24 [Rx] Insuln Asp Prt/Insulin Aspart [NovoLOG MIX 70-30 VIAL] 22 unit SQ AC-BID each 04/17/24 [Rx] Isosorbide Mononitrate ER [Imdur] 90 mg PO DAILY tab 04/17/24 [Rx] cefTRIAXone [Rocephin] 2 gm IVPB Q24H each 04/17/24 [Rx] Follow up Appointment(s)/Referral(s): López Harris DO [Primary Care Provider] - 1-2 days [facility], [REFERRING] - 1 Week Mino Denton MD [STAFF PHYSICIAN] - 1 Week Donovan Zambrano MD [STAFF PHYSICIAN] - 2 Weeks [facility], [NON-STAFF] - Activity/Diet/Wound Care/Special Instructions: Wound VAC orders per Dr. Denton Follow-up with Dr. Denton at the wound care center Peritoneal dialysis orders per Dr. Tamez
[2024-04-17 16:42] LABS: Glucose,Whole Blood 270 mg/dL (70-110)
[2024-04-17 17:06] VITALS: BP 135/69; PULSE 66; TEMP 98.1
== END 2024-04-17 18:02 | disposition home or self-care (01) | DRG 291 ==
LOC: EC 19:54 → 3SCARD 22:25 → OBSVTOIN 04-13 07:21
PROVIDERS: ADMIT Hospitalist; ATTEND Hospitalist
PROC: 5A09357 Assistance with Respiratory Ventilation, Less than 24 Consecutive Hours, Continuous Positive Airway Pressure (ICD-10-PCS; 2024-04-13)
PROC: 30233N1 Transfusion of Nonautologous Red Blood Cells into Peripheral Vein, Percutaneous Approach (ICD-10-PCS; principal; 2024-04-15)
DX: I13.2 Hypertensive heart and chronic kidney disease with heart failure and with stage 5 chronic kidney disease, or end stage renal disease (principal); I50.23 Acute on chronic systolic (congestive) heart failure; J96.21 Acute and chronic respiratory failure with hypoxia; N18.6 End stage renal disease; I47.20 Ventricular tachycardia, unspecified; M86.9 Osteomyelitis, unspecified; J44.9 Chronic obstructive pulmonary disease, unspecified; Z99.81 Dependence on supplemental oxygen; D63.1 Anemia in chronic kidney disease; E11.22 Type 2 diabetes mellitus with diabetic chronic kidney disease; E11.42 Type 2 diabetes mellitus with diabetic polyneuropathy; E11.621 Type 2 diabetes mellitus with foot ulcer; E11.628 Type 2 diabetes mellitus with other skin complications; E11.65 Type 2 diabetes mellitus with hyperglycemia; E66.9 Obesity, unspecified; E11.69 Type 2 diabetes mellitus with other specified complication; F32.A Depression, unspecified; Z68.38 Body mass index [BMI] 38.0-38.9, adult; Z91.158 Patient's noncompliance with renal dialysis for other reason; Z99.2 Dependence on renal dialysis; D50.9 Iron deficiency anemia, unspecified; T50.2X5A Adverse effect of carbonic-anhydrase inhibitors, benzothiadiazides and other diuretics, initial encounter; I25.10 Atherosclerotic heart disease of native coronary artery without angina pectoris; G47.33 Obstructive sleep apnea (adult) (pediatric); F41.0 Panic disorder [episodic paroxysmal anxiety]; I25.2 Old myocardial infarction; I25.5 Ischemic cardiomyopathy; B95.62 Methicillin resistant Staphylococcus aureus infection as the cause of diseases classified elsewhere; E78.5 Hyperlipidemia, unspecified; M19.90 Unspecified osteoarthritis, unspecified site; K21.9 Gastro-esophageal reflux disease without esophagitis; E83.42 Hypomagnesemia; L97.519 Non-pressure chronic ulcer of other part of right foot with unspecified severity; N40.0 Benign prostatic hyperplasia without lower urinary tract symptoms; F17.210 Nicotine dependence, cigarettes, uncomplicated; L08.9 Local infection of the skin and subcutaneous tissue, unspecified; Z79.02 Long term (current) use of antithrombotics/antiplatelets; Z79.4 Long term (current) use of insulin; Z79.899 Other long term (current) drug therapy; Z86.14 Personal history of Methicillin resistant Staphylococcus aureus infection; Z89.512 Acquired absence of left leg below knee; Z95.5 Presence of coronary angioplasty implant and graft; Z86.19 Personal history of other infectious and parasitic diseases; Z28.21 Immunization not carried out because of patient refusal
CPT/HCPCS: 36415; 36600; 71045; 74176; 80048; 80053; 80202; 82728; 82805; 83540; 83550; 83735; 83880; 84100; 84484; 85025; 85027; 85610; 85730; 86850; 86900; 86901; 86920; 93005; 94640; 94660; 94760; 96365; 96375; 96376; 99291

== ENCOUNTER 2024-04-21 13:42 | Emergency (ER) | payer MEDICARE ==
[2024-04-21 14:20] VITALS: TEMP 97.8
--- NOTE | 2024-04-21 14:24 | ED ---
GI Bleed HPI - General Chief complaint: GI Bleed Stated complaint: rectal bleeding Time Seen by Provider: 04/21/24 13:55 Source: patient, family Mode of arrival: wheelchair Limitations: physical limitation - History of Present Illness Initial comments: This is a 58-year-old male with history of end-stage renal disease and peritoneal dialysis presenting for rectal bleeding starting at 12:30 AM this morning. Patient states he was in bed when he noticed bleeding coming from his rectum associated with rectal pain. Patient notes some bright red blood in the toilet 2 days prior. Patient endorses daily use of ASA 81 and Brilinta. Patient denies abdominal pain, back pain, nausea/vomiting, diarrhea, melena, hematemesis. Denies history of internal or external hemorrhoids or ulcerative colitis. Patient endorses history of colonoscopies. Endorses history of ESRD perform peritoneal dialysis last night but has not drained peritoneal fluid as of yet. Patient states he is O2 dependent and did not bring his oxygen tank. MD complaint: gross hematochezia Onset/Timin -: hour(s) Radiation: none Quality: painless Context: blood thinners Treatments Prior to Arrival: none - Related Data Home Medications Medication Instructions Recorded Confirmed Tamsulosin [Flomax] 0.4 mg PO DAILY 04/14/18 04/12/24 Albuterol Inhaler [Ventolin Hfa 1 - 2 puff INHALATION RT-Q6H PRN 03/09/19 04/12/24 Inhaler] Isosorbide Mononitrate ER [Imdur] 60 mg PO DAILY 03/11/22 04/12/24 Pantoprazole [Protonix] 80 mg PO HS 03/11/22 04/12/24 oxyCODONE-APAP 10-325MG [Percocet 1 tab PO Q6H PRN 03/11/22 04/12/24 10-325 mg] FLUoxetine HCL [PROzac] 40 mg PO BID 09/11/23 04/12/24 Gabapentin [Neurontin] 400 mg PO HS 09/11/23 04/12/24 Insulin NPH/Reg Insulin 70/30 See Protocol SQ AC-TID 09/11/23 04/12/24 [humuLIN 70/30 VIAL] Aspirin EC [Ecotrin Low Dose] 81 mg PO HS 12/16/23 04/12/24 Loratadine 10 mg PO HS 12/16/23 04/12/24 Nitroglycerin Sl Tabs [Nitrostat] 0.4 mg SL Q5M PRN 12/16/23 04/12/24 Torsemide [Demadex] 20 mg PO BID 12/16/23 04/12/24 allopurinoL [Zyloprim] 100 mg PO DAILY 12/16/23 04/12/24 Previous Rx's Medication Instructions Recorded amLODIPine [Norvasc] 5 mg PO BID #60 tab 09/12/23 Atorvastatin [Lipitor] 40 mg PO HS #30 tab 12/25/23 Metoprolol Succinate (ER) [Toprol 100 mg PO DAILY #30 tab 12/25/23 XL] Ticagrelor [Brilinta] 90 mg PO BID #180 tab 03/10/24 Psyllium Husk 100% [Metamucil 6 gm PO DAILY packet 04/10/24 Packet] hydrALAZINE HCL [Apresoline] 50 mg PO BID #60 tab 04/10/24 Insuln Asp Prt/Insulin Aspart 12 unit SQ AC-LUNCH each 04/17/24 [NovoLOG MIX 70-30 VIAL] Insuln Asp Prt/Insulin Aspart 22 unit SQ AC-BID each 04/17/24 [NovoLOG MIX 70-30 VIAL] Isosorbide Mononitrate ER [Imdur] 90 mg PO DAILY tab 04/17/24 cefTRIAXone [Rocephin] 2 gm IVPB Q24H each 04/17/24 Allergies Allergy/AdvReac Type Severity Reaction Status Date / Time codeine AdvReac headache, Verified 04/21/24 14:12 DIZZY, N/V hydrocodone [From Vicodin] AdvReac Nausea & Verified 04/21/24 14:12 Vomiting tramadol AdvReac Nausea & Verified 04/21/24 14:12 Vomiting Review of Systems ROS Statement: Those systems with pertinent positive or pertinent negative responses have been documented in the HPI. ROS Other: All systems not noted in ROS Statement are negative. Past Medical History Past Medical History: Coronary Artery Disease (CAD), Heart Failure, COPD, Diabetes Mellitus, Eye Disorder, GERD/Reflux, Hyperlipidemia, Hypertension, Myocardial Infarction (NM), Osteoarthritis (OA), Renal Disease, Respiratory Disorder, Sleep Apnea/CPAP/BIPAP, Vascular Disorder Additional Past Medical History / Comment(s): Poor circulation in hands and legs/feet. 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 does not wear cpap Last Myocardial Infarction Date:: 2014 History of Any Multi-Drug Resistant Organisms: MRSA Date of last positivie culture/infection: approx 2015 MDRO Source:: right foot Past Surgical History: Heart Catheterization With Stent, Hernia Repair, Tonsillectomy Additional Past Surgical History / Comment(s): Right foot 3rd and 4th AND 5TH toes and area of foot amputated, cyst on scrotum removed. partial amp lt foot but had non healing wound which resulted in lt bka. matilde cataracts removed-has lens implants. x3 rt inguinal hernia sx and an umb hernia repair. L BELOW KNEE AMPUTATION , COLONOSCOPY Stent LADx1 03/09/2024-(R) Groin manual pull Past Anesthesia/Blood Transfusion Reactions: No Reported Reaction Additional Past Anesthesia/Blood Transfusion Reaction / Comment(s): States he was in the ICU after his surgery on his toes, but does not know why. Date of Last Stent Placement:: 05/2015 APPROX Past Psychological History: Anxiety, Depression, Panic Disorder Smoking Status: Current some day smoker - Past Family History Father History Unknown: Yes Mother History Unknown: Yes Family Medical History: Cancer, Coronary Artery Disease (CAD) Additional Family Medical History / Comment(s): benign Brain tumor, Menlo syndrome Sister(s) Family Medical History: No Reported History General Exam - General Exam Comments Initial Comments: Visual Physical Exam Vital signs reviewed General: Well-appearing, nontoxic, no acute distress. Head: Normocephalic, atraumatic Eyes: PERRLA, EOMI ENT: Airway patent Chest: Nonlabored breathing Skin: No visual rash, normal skin tone Neuro: Alert and oriented 3 Musculoskeletal: No gross abnormalities Limitations: physical limitation General appearance: alert, in distress (Mild distress noted) Head exam: Present: atraumatic, normocephalic, normal inspection Eye exam: Present: normal appearance, PERRL, EOMI. Absent: scleral icterus, conjunctival injection, periorbital swelling ENT exam: Present: normal exam, mucous membranes moist Neck exam: Present: normal inspection. Absent: tenderness, meningismus, lymphadenopathy Respiratory exam: Present: normal lung sounds bilaterally. Absent: respiratory distress, wheezes, rales, rhonchi, stridor Cardiovascular Exam: Present: regular rate, normal rhythm, normal heart sounds. Absent: systolic murmur, diastolic murmur, rubs, gallop, clicks GI/Abdominal exam: Present: soft, distended, normal bowel sounds. Absent: tenderness, guarding, rebound, rigid Rectal exam: Present: normal inspection (No obvious external/bleeding or external hemorrhoid. HOLLI reveals no palpable internal hemorrhoids or blood on gloved finger), normal prostate Extremities exam: Present: full ROM, normal capillary refill, other (Left AKA noted). Absent: tenderness, pedal edema, joint swelling, calf tenderness Back exam: Present: normal inspection Neurological exam: Present: alert, oriented X3, CN II-XII intact Psychiatric exam: Present: normal affect, normal mood Skin exam: Present: warm, dry, intact, normal color. Absent: rash Course Vital Signs 04/21/24 04/21/24 04/21/24 14:13 15:00 16:00 Temperature 97.8 F Pulse Rate 72 70 73 Respiratory 18 20 20 Rate Blood Pressure 141/62 184/90 190/94 O2 Sat by Pulse 91 L 96 97 Oximetry 04/21/24 17:16 Temperature Pulse Rate Respiratory Rate Blood Pressure O2 Sat by Pulse 94 L Oximetry Medical Decision Making - Medical Decision Making I completed the quick note portion of this chart signed JOSE Trevino Was pt. sent in by a medical professional or institution ([facility], [employer], urgent care, hospital, or jail...) When possible be specific @ -No Did you speak to anyone other than the patient for history (EMS, parent, family, police, friend...)? What history was obtained from this source @ -Spoke to patient's who advised of initial discovery of blood in bed last night and early this morning. Did you review nursing and triage notes (agree or disagree)? Why? @ -I reviewed and agree with nursing and triage notes Were old charts reviewed (outside hosp., previous admission, EMS record, old EKG, old radiological studies, urgent care reports/EKG's, jail records)? Report findings @ -Reviewed previous admission emergency department records from earlier this month. Current symptoms unrelated to previous visit and admission. Differential Diagnosis (chest pain, altered mental status, abdominal pain women, abdominal pain men, vaginal bleeding, weakness, fever, dyspnea, syncope, headache, dizziness, GI bleed, back pain, seizure, CVA, palpatations, mental health, musculoskeletal)? @ -Differential Abdominal Pain Men: Appendicitis, cholecystitis, diverticulosis, ischemic bowel, pancreatitis, hepatitis, UTI, gastroenteritis, AAA, incarcerated hernia, bowel obstruction, constipation, inflammatory bowel, hepatitis, peptic ulcer disease, splenic infarction, perforated viscus, testicular torsion, this is not meant to be an all-inclusive list EKG interpreted by me (3pts min.). @ -Not done X-rays interpreted by me (1pt min.). @ -None done CT interpreted by me (1pt min.). @ -None done U/S interpreted by me (1pt. min.). @ -None done What testing was considered but not performed or refused? (CT, X-rays, U/S, labs)? Why? @ -None What meds were considered but not given or refused? Why? @ -None Did you discuss the management of the patient with other professionals (professionals i.e. , PA, [employer], lab, RT, psych nurse, manager social responsibility, database programmer analyst, teacher, chief communications officer, showcase maker)? Give summary @ -Spoke to Dr. Plascencia from [facility]. Discussed patient case with him. Physician agreed for ER to ER transfer. Was smoking cessation discussed for >3mins.? @ -No Was critical care preformed (if so, how long)? @ -No Were there social determinants of health that impacted care today? How? (Homelessness, low income, unemployed, alcoholism, drug addiction, transportation, low edu. Level, literacy, decrease access to med. care, residential, rehab)? @ -No Was there de-escalation of care discussed even if they declined (Discuss DNR or withdrawal of care, Hospice)? DNR status @ -No What co-morbidities impacted this encounter? (DM, HTN, Smoking, COPD, CAD, Cancer, CVA, ARF, Chemo, Hep., AIDS, mental health diagnosis, sleep apnea, morbid obesity)? @ -ESRD, diabetes, morbid obesity Was patient admitted / discharged? Hospital course, mention meds given and route, prescriptions, significant lab abnormalities, going to OR and other pertinent info. @ -ER to ER transfer. Hemoccult revealed positive finding. Hemoglobin within normal range patient. Vital signs stable discussed with patient whether he would like to be transferred for ongoing GI care or follow-up with outpatient GI for ongoing care. Patient and family decide to transfer to [facility] gastroenterology for ongoing care. Undiagnosed new problem with uncertain prognosis? @ -Yes Drug Therapy requiring intensive monitoring for toxicity (Heparin, Nitro, Insulin, Cardizem)? @ -No Were any procedures done? @ -No Diagnosis/symptom? @ -Bright red bleeding per rectum Acute, or Chronic, or Acute on Chronic? @ -Acute Uncomplicated (without systemic symptoms) or Complicated (systemic symptoms)? @ -Complicated Side effects of treatment? @ -No Exacerbation, Progression, or Severe Exacerbation? @ -No Poses a threat to life or bodily function? How? (Chest pain, USA, NM, pneumonia, PE, COPD, DKA, ARF, appy, cholecystitis, CVA, Diverticulitis, Homicidal, Suicidal, threat to staff... and all critical care pts) @ -Yes. Possible exsanguination - Lab Data Result diagrams: 04/21/24 14:55 04/21/24 14:55 Lab Results 04/21/24 04/21/24 04/21/24 Range/Units 14:55 14:55 14:55 WBC 6.4 (3.8-10.6) k/uL RBC 2.73 L (4.30-5.90) m/uL Hgb 7.9 L (13.0-17.5) gm/dL Hct 24.1 L (39.0-53.0) % MCV 88.0 (80.0-100.0) fL MCH 29.0 (25.0-35.0) pg MCHC 32.9 (31.0-37.0) g/dL RDW 15.7 H (11.5-15.5) % Plt Count 327 (150-450) k/uL MPV 9.3 Neutrophils % 72 % Lymphocytes % 17 % Monocytes % 6 % Eosinophils % 4 % Basophils % 0 % Neutrophils # 4.6 (1.3-7.7) k/uL Lymphocytes # 1.1 (1.0-4.8) k/uL Monocytes # 0.4 (0-1.0) k/uL Eosinophils # 0.2 (0-0.7) k/uL Basophils # 0.0 (0-0.2) k/uL Hypochromasia Slight Poikilocytosis Slight PT 11.7 (10.0-12.5) sec INR 1.1 (<1.2) APTT 29.3 (22.0-30.0) sec Sodium (137-145) mmol/L Potassium (3.5-5.1) mmol/L Chloride (98-107) mmol/L Carbon Dioxide (22-30) mmol/L Anion Gap mmol/L BUN (9-20) mg/dL Creatinine (0.66-1.25) mg/dL Est GFR (CKD-EPI)AfAm (>60 ml/min/1.73 sqM) Est GFR (CKD-EPI)NonAf (>60 ml/min/1.73 sqM) Glucose (74-99) mg/dL Plasma Lactic Acid Anant (0.7-2.0) mmol/L Calcium (8.4-10.2) mg/dL Total Bilirubin (0.2-1.3) mg/dL AST (17-59) U/L ALT (4-49) U/L Alkaline Phosphatase (38-126) U/L Total Protein (6.3-8.2) g/dL Albumin (3.5-5.0) g/dL Amylase (30-110) U/L Lipase (23-300) U/L Stool Occult Blood Positive (Negative) 04/21/24 04/21/24 Range/Units 14:55 14:55 WBC (3.8-10.6) k/uL RBC (4.30-5.90) m/uL Hgb (13.0-17.5) gm/dL Hct (39.0-53.0) % MCV (80.0-100.0) fL MCH (25.0-35.0) pg MCHC (31.0-37.0) g/dL RDW (11.5-15.5) % Plt Count (150-450) k/uL MPV Neutrophils % % Lymphocytes % % Monocytes % % Eosinophils % % Basophils % % Neutrophils # (1.3-7.7) k/uL Lymphocytes # (1.0-4.8) k/uL Monocytes # (0-1.0) k/uL Eosinophils # (0-0.7) k/uL Basophils # (0-0.2) k/uL Hypochromasia Poikilocytosis PT (10.0-12.5) sec INR (<1.2) APTT (22.0-30.0) sec Sodium 138 (137-145) mmol/L Potassium 3.3 L (3.5-5.1) mmol/L Chloride 102 (98-107) mmol/L Carbon Dioxide 32 H (22-30) mmol/L Anion Gap 4 mmol/L BUN 45 H (9-20) mg/dL Creatinine 3.74 H (0.66-1.25) mg/dL Est GFR (CKD-EPI)AfAm 19 (>60 ml/min/1.73 sqM) Est GFR (CKD-EPI)NonAf 17 (>60 ml/min/1.73 sqM) Glucose 341 H (74-99) mg/dL Plasma Lactic Acid Anant 1.3 (0.7-2.0) mmol/L Calcium 7.5 L (8.4-10.2) mg/dL Total Bilirubin 0.2 (0.2-1.3) mg/dL AST 14 L (17-59) U/L ALT 13 (4-49) U/L Alkaline Phosphatase 131 H (38-126) U/L Total Protein 6.4 (6.3-8.2) g/dL Albumin 2.7 L (3.5-5.0) g/dL Amylase 42 (30-110) U/L Lipase 79 (23-300) U/L Stool Occult Blood (Negative) Disposition Clinical Impression: BRBPR (bright red blood per rectum) Narrative: Spoke with Dr. Plascencia at [facility]. Provided HPI and other findings. Agreed to ER to ER transport for ongoing care for patient. Disposition: OTHER INSTITUTION NOT DEFINED Condition: Fair Instructions (If sedation given, give patient instructions): Gastrointestinal Bleeding (ED) Is patient prescribed a controlled substance at d/c from ED?: No Referrals: López Harris DO [Primary Care Provider] - 1-2 days Time of Disposition: 17:31 - Out of Hospital Transfer - Req. Specs Out of Hospital Transfer - Requested Specifics: Other Emergency Center ([facility] ER)
[2024-04-21 15:18] LABS: Basophils % (A) 0 %; Eosinophils # (A) 0.2 k/uL (0-0.7); Eosinophils % (A) 4 %; HCT 24.1 % (39.0-53.0); HGB 7.9 gm/dL (13.0-17.5); Hypochromasia Slight; Lymphocytes # (A) 1.1 k/uL (1.0-4.8); Lymphocytes % (A) 17 %; MCHC 32.9 g/dL (31.0-37.0); Mean Platelet Volume 9.3; Monocytes # (A) 0.4 k/uL (0-1.0); Monocytes % (A) 6 %; Neutrophils # (A) 4.6 k/uL (1.3-7.7); Neutrophils % (A) 72 %; Platelet Count 327 k/uL (150-450); Poikilocytosis Slight; RBC 2.73 m/uL (4.30-5.90); RDW 15.7 % (11.5-15.5); WBC 6.4 k/uL (3.8-10.6)
[2024-04-21 15:29] LABS: ALT 13 U/L (4-49); AST 14 U/L (17-59); African American GFR (CKD) 19 (>60 ml/min/1.73 sqM); Albumin 2.7 g/dL (3.5-5.0); Alkaline Phosphatase 131 U/L (38-126); Amylase 42 U/L (30-110); Anion Gap 4 mmol/L; Blood Urea Nitrogen 45 mg/dL (9-20); Calcium 7.5 mg/dL (8.4-10.2); Carbon Dioxide 32 mmol/L (22-30); Chloride 102 mmol/L (98-107); Glucose 341 mg/dL (74-99); Lipase 79 U/L (23-300); Non-African American GFR(CKD) 17 (>60 ml/min/1.73 sqM); Potassium 3.3 mmol/L (3.5-5.1); Sodium 138 mmol/L (137-145); Total Bilirubin 0.2 mg/dL (0.2-1.3); Total Protein 6.4 g/dL (6.3-8.2)
[2024-04-21 15:46] LABS: INR 1.1 (<1.2); Partial Thromboplastin Time 29.3 sec (22.0-30.0); Prothrombin Time 11.7 sec (10.0-12.5)
[2024-04-21] MEDS: HYDROmorphone 0.5 MG/0.5 ML SYRINGE IVP STA ×2 (17:27→18:02)
[2024-04-21] MEDS ORDERED: DIALYSIS (PERIT 4.25%) 2500 ML 106.25 G/2,500 ML BAG INTRAPERIT SCH (18:00)
[2024-04-21 18:09] VITALS: PULSE 71
[2024-04-21 18:26] VITALS: BP 144/71; RESP 20
== END 2024-04-21 18:40 | disposition other institution (70) ==
LOC: EC 13:42
CPT/HCPCS: 36415; 80053; 82150; 82272; 83605; 83690; 85025; 85610; 85730; 96374; 99285

== ENCOUNTER 2024-04-30 13:22 | Observation (INO) | payer MEDICARE ==
--- NOTE | 2024-04-30 13:48 | ED ---
General Adult HPI - General Chief complaint: Recheck/Abnormal Lab/Rx Stated complaint: Low hemoglobin Time Seen by Provider: 04/30/24 13:40 Source: patient, RN notes reviewed Mode of arrival: wheelchair Limitations: physical limitation - History of Present Illness Initial comments: Patient is a 58-year-old male present to the emergency department with concern for anemia. Patient states over the past few days he has been more fatigued and has exertional dyspnea. Patient was in wound care and was sent to emergency department secondary to low hemoglobin. Dr. Denton would like patient to be admitted with him on consult and blood transfusion. Patient denies any bleeding. Patient has some chronic anemia and does do peritoneal dialysis - Related Data Home Medications Medication Instructions Recorded Confirmed Tamsulosin [Flomax] 0.4 mg PO DAILY 04/14/18 04/12/24 Albuterol Inhaler [Ventolin Hfa 1 - 2 puff INHALATION RT-Q6H PRN 03/09/19 04/12/24 Inhaler] Isosorbide Mononitrate ER [Imdur] 60 mg PO DAILY 03/11/22 04/12/24 Pantoprazole [Protonix] 80 mg PO HS 03/11/22 04/12/24 oxyCODONE-APAP 10-325MG [Percocet 1 tab PO Q6H PRN 03/11/22 04/12/24 10-325 mg] FLUoxetine HCL [PROzac] 40 mg PO BID 09/11/23 04/12/24 Gabapentin [Neurontin] 400 mg PO HS 09/11/23 04/12/24 Insulin NPH/Reg Insulin 70/30 See Protocol SQ AC-TID 09/11/23 04/12/24 [humuLIN 70/30 VIAL] Aspirin EC [Ecotrin Low Dose] 81 mg PO HS 12/16/23 04/12/24 Loratadine 10 mg PO HS 12/16/23 04/12/24 Nitroglycerin Sl Tabs [Nitrostat] 0.4 mg SL Q5M PRN 12/16/23 04/12/24 Torsemide [Demadex] 20 mg PO BID 12/16/23 04/12/24 allopurinoL [Zyloprim] 100 mg PO DAILY 12/16/23 04/12/24 Previous Rx's Medication Instructions Recorded amLODIPine [Norvasc] 5 mg PO BID #60 tab 09/12/23 Atorvastatin [Lipitor] 40 mg PO HS #30 tab 12/25/23 Metoprolol Succinate (ER) [Toprol 100 mg PO DAILY #30 tab 12/25/23 XL] Ticagrelor [Brilinta] 90 mg PO BID #180 tab 03/10/24 Psyllium Husk 100% [Metamucil 6 gm PO DAILY packet 04/10/24 Packet] hydrALAZINE HCL [Apresoline] 50 mg PO BID #60 tab 04/10/24 Insuln Asp Prt/Insulin Aspart 12 unit SQ AC-LUNCH each 04/17/24 [NovoLOG MIX 70-30 VIAL] Insuln Asp Prt/Insulin Aspart 22 unit SQ AC-BID each 04/17/24 [NovoLOG MIX 70-30 VIAL] Isosorbide Mononitrate ER [Imdur] 90 mg PO DAILY tab 04/17/24 cefTRIAXone [Rocephin] 2 gm IVPB Q24H each 04/17/24 Allergies Allergy/AdvReac Type Severity Reaction Status Date / Time codeine AdvReac headache, Verified 04/30/24 13:31 DIZZY, N/V hydrocodone [From Vicodin] AdvReac Nausea & Verified 04/30/24 13:31 Vomiting tramadol AdvReac Nausea & Verified 04/30/24 13:31 Vomiting Review of Systems ROS Statement: Those systems with pertinent positive or pertinent negative responses have been documented in the HPI. ROS Other: All systems not noted in ROS Statement are negative. Constitutional: Denies: fever Eyes: Denies: eye pain ENT: Denies: ear pain Cardiovascular: Reports: dyspnea on exertion Endocrine: Reports: fatigue Gastrointestinal: Denies: abdominal pain, hematemesis, melena, hematochezia Past Medical History Past Medical History: Coronary Artery Disease (CAD), Heart Failure, COPD, Diabetes Mellitus, Eye Disorder, GERD/Reflux, Hyperlipidemia, Hypertension, Myocardial Infarction ([place]), Osteoarthritis (OA), Renal Disease, Respiratory Disorder, Sleep Apnea/CPAP/BIPAP, Vascular Disorder Additional Past Medical History / Comment(s): Poor circulation in hands and legs/feet. 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 does not wear cpap Last Myocardial Infarction Date:: 2014 History of Any Multi-Drug Resistant Organisms: MRSA Date of last positivie culture/infection: approx 2015 MDRO Source:: right foot Past Surgical History: Heart Catheterization With Stent, Hernia Repair, Tonsillectomy Additional Past Surgical History / Comment(s): Right foot 3rd and 4th AND 5TH toes and area of foot amputated, cyst on scrotum removed. partial amp lt foot but had non healing wound which resulted in lt bka. matilde cataracts removed-has le ns implants. x3 rt inguinal hernia sx and an umb hernia repair. L BELOW KNEE AMPUTATION , COLONOSCOPY Stent LADx1 03/09/2024-(R) Groin manual pull Past Anesthesia/Blood Transfusion Reactions: No Reported Reaction Additional Past Anesthesia/Blood Transfusion Reaction / Comment(s): States he was in the ICU after his surgery on his toes, but does not know why. Date of Last Stent Placement:: 05/2015 APPROX Past Psychological History: Anxiety, Depression, Panic Disorder Smoking Status: Current some day smoker - Past Family History Father History Unknown: Yes Mother History Unknown: Yes Family Medical History: Cancer, Coronary Artery Disease (CAD) Additional Family Medical History / Comment(s): benign Brain tumor, Berhane syndrome Sister(s) Family Medical History: No Reported History General Exam Limitations: no limitations, physical limitation General appearance: alert Head exam: Present: normocephalic Eye exam: Present: normal appearance Neck exam: Present: normal inspection Respiratory exam: Present: normal lung sounds bilaterally Cardiovascular Exam: Present: regular rate, normal rhythm GI/Abdominal exam: Present: soft. Absent: tenderness Extremities exam: Present: other (Right foot wound) Neurological exam: Present: alert Psychiatric exam: Present: normal affect, normal mood Skin exam: Present: other (Right foot wound) Course Vital Signs 04/30/24 13:31 Temperature 97.5 F L Pulse Rate 65 Respiratory 20 Rate Blood Pressure 113/54 O2 Sat by Pulse 94 L Oximetry Medical Decision Making - Medical Decision Making Was pt. sent in by a medical professional or institution (, PA, CODE ENFORCEMENT OFFICER, urgent care, hospital, or longterm...) When possible be specific @ -Patient was sent from wound center Did you speak to anyone other than the patient for history (EMS, parent, family, police, friend...)? What history was obtained from this source @ -Dr. Denton including hemoglobin and foot wound Did you review nursing and triage notes (agree or disagree)? Why? @ -I reviewed and agree with nursing and triage notes Were old charts reviewed (outside hosp., previous admission, EMS record, old EKG, old radiological studies, urgent care reports/EKG's, longterm records)? Report findings @ -No old charts were reviewed Differential Diagnosis (chest pain, altered mental status, abdominal pain women, abdominal pain men, vaginal bleeding, weakness, fever, dyspnea, syncope, headache, dizziness, GI bleed, back pain, seizure, CVA, palpatations, mental hea lth, musculoskeletal)? @ -Differential Weakness: Hypoglycemia, shock, sepsis, hyponatremia, anemia, infection, [place], ETOH, adverse medicine reaction, overdose, stroke, this is not meant to be an all-inclusive list. EKG interpreted by me (3pts min.). @ -As above X-rays interpreted by me (1pt min.). @ -None done CT interpreted by me (1pt min.). @ -None done U/S interpreted by me (1pt. min.). @ -None done What testing was considered but not performed or refused? (CT, X-rays, U/S, labs)? Why? @ -Cultures however patient was on antibiotics prior to arrival and this will be continued What meds were considered but not given or refused? Why? @ -None Did you discuss the management of the patient with other professionals (professionals i.e. , PA, CODE ENFORCEMENT OFFICER, lab, RT, psych nurse, social staff worker, oiler bander, teacher, targeting acquisition officer, transplant case manager)? Give summary @ -Case also discussed with Dr. Witt's note who will admit covering Dr. Taylor for us Was smoking cessation discussed for >3mins.? @ -No Was critical care preformed (if so, how long)? @ -31 minutes critical care time Were there social determinants of health that impacted care today? How? (Homelessness, low income, unemployed, alcoholism, drug addiction, transportation, low edu. Level, literacy, decrease access to med. care, long term, rehab)? @ -No Was there de-escalation of care discussed even if they declined (Discuss DNR or withdrawal of care, Hospice)? DNR status @ -No What co-morbidities impacted this encounter? (DM, HTN, Smoking, COPD, CAD, Cancer, CVA, ARF, Chemo, Hep., AIDS, mental health diagnosis, sleep apnea, morbid obesity)? @ -History of chronic foot wound. History of peritoneal dialysis. History of chronic anemia Was patient admitted / discharged? Hospital course, mention meds given and route, prescriptions, significant lab abnormalities, going to OR and other pertinent info. @ -Patient presents with fatigue and exertional dyspnea and has acute on chronic anemia. Patient will receive blood transfusion that has been ordered. Patient will be admitted with consults. Admission orders placed Undiagnosed new problem with uncertain prognosis? @ -No Drug Therapy requiring intensive monitoring for toxicity (Heparin, Nitro, Insulin, Cardizem)? @ -Blood transfusion Were any procedures done? @ -No Diagnosis/symptom? @ -Anemia, foot wound Acute, or Chronic, or Acute on Chronic? @ -Acute on chronic, acute on chronic Uncomplicated (without systemic symptoms) or Complicated (systemic symptoms)? @ -Default Side effects of treatment? @ -No Exacerbation, Progression, or Severe Exacerbation? @ -No Poses a threat to life or bodily function? How? (Chest pain, [place], [place], pneumonia, PE, COPD, DKA, ARF, appy, cholecystitis, CVA, Diverticulitis, Homicidal, Suicidal, threat to staff... and all critical care pts) @ -Threat to hematological function Critical Care Time Critical Care Time: Yes Disposition Clinical Impression: ESRD (end stage renal disease), Wound of foot, Anemia Disposition: ADMITTED IP TO THIS HOSP Is patient prescribed a controlled substance at d/c from ED?: No Referrals: López Harris DO [Primary Care Provider] - 1-2 days Time of Disposition: 14:21
[2024-04-30] MEDS ORDERED: VANCOMYCIN IV PER PHARMACY 1 EACH MISC MISCELLANE PRN (13:55)
[2024-04-30] MEDS: VANCOMYCIN 1,250 MG in SODIUM CHLORIDE 0.9% 250 ML IVPB STA (14:11)
[2024-04-30] MEDS ORDERED: NALOXONE 0.4 MG/ML 1 ML VIAL IV PRN (14:22)
--- NOTE | 2024-04-30 14:45 | P.GSCN ---
History of Present Illness History of present illness: 58-year-old gentleman patient came to the wound clinic today this has a toe amputations done on his right foot we be treating with local wound care. He was recently discharged from the hospital because of GI bleed patient went to more from his general patient was there for 3 to 4 days the patient he did had a endoscopy done patient had a VCE done hemoglobin is 6.9 patient is very pale and weakness Medical history history of chronic renal failure on peritoneal dialysis Surgical history patient had a left BKA potation done in the past and also toe amputation done on the right foot in the past we will be treating with local wound care of neck examination neck is supple no bruit appreciated patient is having nasal oxygen graft chest few crackles the lung bases. Second sound present Abdomen is soft patient has a peritoneal dialysis under care of nephrology is on peritoneal dialysis Heart vascular femorals are 1+ bilateral patient had left BKA amputation right foot toe amputation done today we cleaned the wound we will use Santyl cream dressing should be changed daily with Santyl cream we will follow with you Past Medical History Past Medical History: Coronary Artery Disease (CAD), Heart Failure, COPD, Diabetes Mellitus, Eye Disorder, GERD/Reflux, Hyperlipidemia, Hypertension, Myocardial Infarction ([place]), Osteoarthritis (OA), Renal Disease, Respiratory Disorder, Sleep Apnea/CPAP/BIPAP, Vascular Disorder Additional Past Medical History / Comment(s): Poor circulation in hands and legs/feet. 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 does not wear cpap Last Myocardial Infarction Date:: 2014 History of Any Multi-Drug Resistant Organisms: MRSA Year Discovered:: approx 2016 MDRO Source:: right foot Past Surgical History: Heart Catheterization With Stent, Hernia Repair, Tonsillectomy Additional Past Surgical History / Comment(s): Right foot 3rd and 4th AND 5TH toes and area of foot amputated, cyst on scrotum removed. partial amp lt foot but had non healing wound which resulted in lt bka. matilde cataracts removed-has lens implants. x3 rt inguinal hernia sx and an umb hernia repair. L BELOW KNEE AMPUTATION , COLONOSCOPY Stent LADx1 03/09/2024-(R) Groin manual pull Past Anesthesia/Blood Transfusion Reactions: No Reported Reaction Additional Past Anesthesia/Blood Transfusion Reaction / Comm: States he was in the ICU after his surgery on his toes, but does not know why. Date of Last Stent Placement:: 05/2015 APPROX Past Psychological History: Anxiety, Depression, Panic Disorder Smoking Status: Current some day smoker - Past Family History Father History Unknown: Yes Mother History Unknown: Yes Family Medical History: Cancer, Coronary Artery Disease (CAD) Additional Family Medical History / Comment(s): benign Brain tumor, Berhane syndrome Sister(s) Family Medical History: No Reported History Medications and Allergies Home Medications Medication Instructions Recorded Confirmed Type Tamsulosin [Flomax] 0.4 mg PO DAILY 04/14/18 04/12/24 History Albuterol Inhaler [Ventolin Hfa 1 - 2 puff INHALATION RT-Q6H PRN 03/09/19 04/12/24 History Inhaler] Isosorbide Mononitrate ER [Imdur] 60 mg PO DAILY 03/11/22 04/12/24 History Pantoprazole [Protonix] 80 mg PO HS 03/11/22 04/12/24 History oxyCODONE-APAP 10-325MG [Percocet 1 tab PO Q6H PRN 03/11/22 04/12/24 History 10-325 mg] FLUoxetine HCL [PROzac] 40 mg PO BID 09/11/23 04/12/24 History Gabapentin [Neurontin] 400 mg PO HS 09/11/23 04/12/24 History Insulin NPH/Reg Insulin 70/30 See Protocol SQ AC-TID 09/11/23 04/12/24 History [humuLIN 70/30 VIAL] amLODIPine [Norvasc] 5 mg PO BID #60 tab 09/12/23 04/12/24 Rx Aspirin EC [Ecotrin Low Dose] 81 mg PO HS 12/16/23 04/12/24 History Loratadine 10 mg PO HS 12/16/23 04/12/24 History Nitroglycerin Sl Tabs [Nitrostat] 0.4 mg SL Q5M PRN 12/16/23 04/12/24 History Torsemide [Demadex] 20 mg PO BID 12/16/23 04/12/24 History allopurinoL [Zyloprim] 100 mg PO DAILY 12/16/23 04/12/24 History Atorvastatin [Lipitor] 40 mg PO HS #30 tab 12/25/23 04/12/24 Rx Metoprolol Succinate (ER) [Toprol 100 mg PO DAILY #30 tab 12/25/23 04/12/24 Rx XL] Ticagrelor [Brilinta] 90 mg PO BID #180 tab 03/10/24 04/12/24 Rx Psyllium Husk 100% [Metamucil 6 gm PO DAILY packet 04/10/24 04/12/24 Rx Packet] hydrALAZINE HCL [Apresoline] 50 mg PO BID #60 tab 04/10/24 04/12/24 Rx Insuln Asp Prt/Insulin Aspart 12 unit SQ AC-LUNCH each 04/17/24 Rx [NovoLOG MIX 70-30 VIAL] Insuln Asp Prt/Insulin Aspart 22 unit SQ AC-BID each 04/17/24 Rx [NovoLOG MIX 70-30 VIAL] Isosorbide Mononitrate ER [Imdur] 90 mg PO DAILY tab 04/17/24 Rx cefTRIAXone [Rocephin] 2 gm IVPB Q24H each 04/17/24 Rx Allergies Allergy/AdvReac Type Severity Reaction Status Date / Time codeine AdvReac headache, Verified 04/30/24 13:31 DIZZY, N/V hydrocodone [From Vicodin] AdvReac Nausea & Verified 04/30/24 13:31 Vomiting tramadol AdvReac Nausea & Verified 04/30/24 13:31 Vomiting Surgical - Exam Vital Signs Temp Pulse Resp BP Pulse Ox 97.5 F L 65 20 113/54 94 L 04/30/24 13:31 04/30/24 13:31 04/30/24 13:31 04/30/24 13:31 04/30/24 13:31
[2024-04-30] MEDS: MORPHINE SULFATE 4 MG/ML SYRINGE IV PRN (14:57)
--- NOTE | 2024-04-30 15:00 | P.HPIM ---
History of Present Illness 58-year-old male was sent in from wound care clinic because of anemia with hemoglobin around 6.8 patient denied any blood in the stools dark stools mopped assist. Patient has normal MCV of around 90 patient had history of hemorrhoids in the past with bleeding in the past. Patient does have history of end-stage renal disease on peritoneal dialysis patient also has extensive history of diabetes mellitus diabetic foot infection patient has an amputation of the right foot for which patient follows in wound care clinic because of the wounds in the right foot it does not appear to be infected. Patient also has a left below- knee amputation. Patient is also end-stage disease on peritoneal dialysis. Patient does have history of congestive heart failure with EF of around 45% patient appears to be clinically volume overloaded patient does have distended abdomen as well may have ascites.. REVIEW OF SYSTEMS: All other systems are negative except those mentioned in the HPI PHYSICAL EXAMINATION: GENERAL: The patient is alert and oriented x3, not in any acute distress. Well developed, well nourished. Obese HEENT: Pupils are round and equally reacting to light. EOMI. No scleral icterus. No conjunctival pallor. Normocephalic, atraumatic. No pharyngeal erythema. No thyromegaly. CARDIOVASCULAR: S1 and S2 present. No murmurs, rubs, or gallops. PULMONARY: Chest is clear to auscultation, no wheezing or crackles. ABDOMEN: Soft, nontender, distended may have ascites, does have peritoneal dialysis catheter normoactive bowel sounds. No palpable organomegaly. MUSCULOSKELETAL: No joint swelling or deformity. EXTREMITIES: No cyanosis, clubbing, patient does have a pedal edema on the right side and wounds on the right side for which patient is following up with wound care and left BKA NEUROLOGICAL: Gross neurological examination did not reveal any focal deficits. SKIN: As mentioned above Assessment and plan -Anemia without any evidence of acute blood loss, may be secondary to anemia of chronic kidney disease patient will transfuse 1 unit of blood. Nephrology will follow the patient -End-stage renal disease on peritoneal dialysis, nephrology follow-up. -Congestive heart failure chronic systolic function patient clinically appears to be volume overloaded patient will be started on IV Lasix. Will obtain a chest x-ray and a BNP -Type 2 diabetes mellitus once medications are verified patient will start on home regimen appropriately and additionally insulin as needed -Benign prostatic atrophy -Hyperlipidemia -Obesity -Anxiety/depression -Diabetic nephropathy and neuropathy continue with Neurontin -COPD without any acute exacerbation -Severe peripheral artery disease with multiple amputations including left below-knee imitation and right foot second and third toes amputation and multiple wounds on the toes for which wound care was consulted DVT prophylaxis: Subcutaneous heparin Past Medical History Past Medical History: Coronary Artery Disease (CAD), Heart Failure, COPD, Diabetes Mellitus, Eye Disorder, GERD/Reflux, Hyperlipidemia, Hypertension, Myocardial Infarction ([place]), Osteoarthritis (OA), Renal Disease, Respiratory Disorder, Sleep Apnea/CPAP/BIPAP, Vascular Disorder Additional Past Medical History / Comment(s): Poor circulation in hands and legs/feet. 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 does not wear cpap Last Myocardial Infarction Date:: 2014 History of Any Multi-Drug Resistant Organisms: MRSA Date of last positivie culture/infection: approx 2015 MDRO Source:: right foot Past Surgical History: Heart Catheterization With Stent, Hernia Repair, Tonsillectomy Additional Past Surgical History / Comment(s): Right foot 3rd and 4th AND 5TH toes and area of foot amputated, cyst on scrotum removed. partial amp lt foot but had non healing wound which resulted in lt bka. matilde cataracts removed-has lens implants. x3 rt inguinal hernia sx and an umb hernia repair. L BELOW KNEE AMPUTATION , COLONOSCOPY Stent LADx1 03/09/2024-(R) Groin manual pull Past Anesthesia/Blood Transfusion Reactions: No Reported Reaction Additional Past Anesthesia/Blood Transfusion Reaction / Comment(s): States he was in the ICU after his surgery on his toes, but does not know why. Date of Last Stent Placement:: 05/2015 APPROX Past Psychological History: Anxiety, Depression, Panic Disorder Smoking Status: Current some day smoker - Past Family History Father History Unknown: Yes Mother History Unknown: Yes Family Medical History: Cancer, Coronary Artery Disease (CAD) Additional Family Medical History / Comment(s): benign Brain tumor, Berhane syndrome Sister(s) Family Medical History: No Reported History Medications and Allergies Home Medications Medication Instructions Recorded Confirmed Type Tamsulosin [Flomax] 0.4 mg PO DAILY 04/14/18 04/12/24 History Albuterol Inhaler [Ventolin Hfa 1 - 2 puff INHALATION RT-Q6H PRN 03/09/19 04/12/24 History Inhaler] Isosorbide Mononitrate ER [Imdur] 60 mg PO DAILY 03/11/22 04/12/24 History Pantoprazole [Protonix] 80 mg PO HS 03/11/22 04/12/24 History oxyCODONE-APAP 10-325MG [Percocet 1 tab PO Q6H PRN 03/11/22 04/12/24 History 10-325 mg] FLUoxetine HCL [PROzac] 40 mg PO BID 09/11/23 04/12/24 History Gabapentin [Neurontin] 400 mg PO HS 09/11/23 04/12/24 History Insulin NPH/Reg Insulin 70/30 See Protocol SQ AC-TID 09/11/23 04/12/24 History [humuLIN 70/30 VIAL] amLODIPine [Norvasc] 5 mg PO BID #60 tab 09/12/23 04/12/24 Rx Aspirin EC [Ecotrin Low Dose] 81 mg PO HS 12/16/23 04/12/24 History Loratadine 10 mg PO HS 12/16/23 04/12/24 History Nitroglycerin Sl Tabs [Nitrostat] 0.4 mg SL Q5M PRN 12/16/23 04/12/24 History Torsemide [Demadex] 20 mg PO BID 12/16/23 04/12/24 History allopurinoL [Zyloprim] 100 mg PO DAILY 12/16/23 04/12/24 History Atorvastatin [Lipitor] 40 mg PO HS #30 tab 12/25/23 04/12/24 Rx Metoprolol Succinate (ER) [Toprol 100 mg PO DAILY #30 tab 12/25/23 04/12/24 Rx XL] Ticagrelor [Brilinta] 90 mg PO BID #180 tab 03/10/24 04/12/24 Rx Psyllium Husk 100% [Metamucil 6 gm PO DAILY packet 04/10/24 04/12/24 Rx Packet] hydrALAZINE HCL [Apresoline] 50 mg PO BID #60 tab 04/10/24 04/12/24 Rx Insuln Asp Prt/Insulin Aspart 12 unit SQ AC-LUNCH each 04/17/24 Rx [NovoLOG MIX 70-30 VIAL] Insuln Asp Prt/Insulin Aspart 22 unit SQ AC-BID each 04/17/24 Rx [NovoLOG MIX 70-30 VIAL] Isosorbide Mononitrate ER [Imdur] 90 mg PO DAILY tab 04/17/24 Rx cefTRIAXone [Rocephin] 2 gm IVPB Q24H each 04/17/24 Rx Allergies Allergy/AdvReac Type Severity Reaction Status Date / Time codeine AdvReac headache, Verified 04/30/24 14:59 DIZZY, N/V hydrocodone [From Vicodin] AdvReac Nausea & Verified 04/30/24 14:59 Vomiting tramadol AdvReac Nausea & Verified 04/30/24 14:59 Vomiting Physical Exam Vitals: Vital Signs Temp Pulse Resp BP Pulse Ox 04/30/24 13:31 97.5 F L 65 20 113/54 94 L Intake and Output 04/30/24 04/30/24 04/30/24 06:59 14:59 22:59 Other: Weight 118.841 kg
[2024-04-30 15:24] LABS: Phosphorus 4.7 mg/dL (2.5-4.5)
--- NOTE | 2024-04-30 15:48 | XR ---
EXAMINATION TYPE: XR chest 2V DATE OF EXAM: 04/30/2024 COMPARISON: 04/11/2024 HISTORY: Pneumonia TECHNIQUE: Frontal and lateral views of the chest are obtained. FINDINGS: There is mild cardiomegaly and moderate to marked pulmonary vascular congestion and mild interstitial edema. Mild fluid is seen within the lung fissures. There is no pneumothorax. There is focal airspac e consolidation in the lower lobes posteriorly which could represent pulmonary edema. IMPRESSION: Findings most consistent with CHF. Pneumonia not excluded. Clinical correlation recommen ded. [facility], , 04/30/2024 3:46 PM
[2024-04-30] MEDS: FUROSEMIDE 10 MG/ML 4 ML VIAL IV SCH (17:03)
[2024-04-30] MEDS: HEPARIN SODIUM,PORCINE 5,000 UNIT/ML 1 ML VIAL SQ SCH (17:05)
[2024-04-30 20:19] LABS: Glucose,Whole Blood 201 mg/dL (70-110)
[2024-04-30 23:53] LABS: HCT 25.5 % (39.0-53.0); HGB 8.2 gm/dL (13.0-17.5); Hypochromasia Moderate; MCHC 32.2 g/dL (31.0-37.0); MCV 90.2 fL (80.0-100.0); Platelet Count 269 k/uL (150-450); Poikilocytosis Slight; RBC 2.83 m/uL (4.30-5.90); RDW 14.9 % (11.5-15.5); WBC 6.7 k/uL (3.8-10.6)
[2024-05-01] MEDS: DIALYSIS (PERITONEAL) DEX 2.5% 2,500 ML BAG INTRAPERIT SCH (01:14)
[2024-05-01] MEDS ORDERED: PSYLLIUM HUSK 100% 6 GM PACKET PO PRN (01:18)
[2024-05-01] MEDS ORDERED: ALBUTEROL NEBULIZED 2.5 MG/3 ML INHALATION PRN (01:18)
[2024-05-01] MEDS ORDERED: NITROGLYCERIN SL TABS 0.4 MG TAB SUBLINGUAL PRN (01:18)
[2024-05-01] MEDS ORDERED: hydrALAZINE HCL 50 MG TAB PO PRN (01:18)
[2024-05-01] MEDS ORDERED: DEXTROSE 50% SYRINGE 50 ML IVP PRN ×2 (01:20)
[2024-05-01 06:48] LABS: Glucose,Whole Blood 238 mg/dL (70-110)
[2024-05-01] MEDS: INSULIN ASPART (NovoLOG) 100 UNIT/ML VIAL SQ SCH (06:53)
[2024-05-01] MEDS ORDERED: PANTOPRAZOLE 40 MG/10 ML VIAL IV SCH (09:00)
[2024-05-01] MEDS: TORSEMIDE 20 MG TAB PO SCH (09:51)
[2024-05-01] MEDS: TAMSULOSIN 0.4 MG CAP.ER.24H PO SCH (09:51)
[2024-05-01] MEDS: FLUoxetine HCL 20 MG CAP PO SCH (09:51)
[2024-05-01] MEDS: allopurinoL 100 MG TAB PO SCH (09:52)
[2024-05-01] MEDS: amLODIPine 5 MG TAB PO SCH (09:52)
[2024-05-01] MEDS: ISOSORBIDE MONONITRATE ER 30 MG TAB.ER.24H PO SCH (09:52)
[2024-05-01] MEDS: TICAGRELOR 90 MG TAB PO SCH (09:52)
[2024-05-01] MEDS: METOPROLOL SUCCINATE (ER) 100 MG TAB.ER.24H PO SCH (09:52)
[2024-05-01] MEDS: VANCOMYCIN 1,250 MG in SODIUM CHLORIDE 0.9% 250 ML IVPB ONE (09:53)
[2024-05-01 10:24] LABS: Basophils # (A) 0.03 X 10*3/uL (0.00-0.10); Basophils % (A) 0.4 %; Eosinophils # (A) 0.23 X 10*3/uL (0.04-0.35); Eosinophils % (A) 3.4 %; HCT 24.9 % (39.6-50.0); HGB 7.7 g/dL (13.0-17.0); Lymphocytes # (A) 1.09 X 10*3/uL (0.90-5.00); Lymphocytes % (A) 15.9 %; MCH 27.7 pg (27.0-32.0); MCHC 30.9 g/dL (32.0-37.0); MCV 89.6 FL (80.0-97.0); Mean Platelet Volume 10.7 FL (9.5-12.2); Monocytes # (A) 0.52 X 10*3/uL (0.20-1.00); Monocytes % (A) 7.6 %; NRBC Per 100 WBC 0 X 10*3/uL (0.00-0.01); Neutrophils # (A) 4.96 X 10*3/uL (1.80-7.70); Neutrophils % (A) 72.4 %; Platelet Count 260 X 10*3/uL (140-440); RBC 2.78 X 10*6/uL (4.40-5.60); RDW 14.5 % (11.5-14.5); WBC 6.85 X 10*3/uL (4.50-10.00)
[2024-05-01 10:37] LABS: ALT 11 U/L (10-49); AST 14 U/L (14-35); Albumin 2.7 g/dL (3.8-4.9); Albumin/Globulin Ratio 0.69 Ratio (1.60-3.17); Alkaline Phosphatase 153 U/L (41-126); BUN/Creat Ratio 9.04 Ratio (12.00-20.00); Blood Urea Nitrogen 40.7 mg/dL (9.0-27.0); Calcium 7.8 mg/dL (8.7-10.3); Carbon Dioxide 27.9 mmol/L (21.6-31.8); Chloride 105 mmol/L (96-109); Globulin 3.9 g/dL (1.6-3.3); Glucose 205 mg/dL (70-110); Magnesium 1.7 mg/dL (1.5-2.4); Potassium 4.2 mmol/L (3.5-5.5); Sodium 143 mmol/L (135-145); Total Bilirubin 0.2 mg/dL (0.3-1.2); Total Protein 6.6 g/dL (6.2-8.2)
[2024-05-01] MEDS: oxyCODONE-APAP 10-325MG 1 EACH TAB PO PRN (11:07)
[2024-05-01] MEDS ORDERED: COLLAGENASE 250 UNIT/GM OINTMENT 30 GM TUBE TOPICAL SCH (11:30)
[2024-05-01 11:35] LABS: Glucose,Whole Blood 225 mg/dL (70-110)
[2024-05-01] MEDS: DIALYSIS (PERIT 2.5%) 2,500 ML 62.5 G/2,500 ML BAG INTRAPERIT SCH (12:49)
--- NOTE | 2024-05-01 13:14 | P.NPCON ---
History of Present Illness - Reason for Consult end stage renal disease - History of Present Illness patient is a 58-year-old male with end-stage renal disease on peritoneal dialysis. He is admitted to the hospital with low hemoglobin at 6.8 g/dL. Patient was sent from wound care. Patient has chronic right foot wound for which he has been on antibiotics during his recent hospitalization. Underlying history of hemorrhoids. No active bleeding noted at this point. Patient has been transfused packed RBCs. No complaints of chest pains or shortness of breath Past Medical History Past Medical History: Coronary Artery Disease (CAD), Heart Failure, COPD, Diabetes Mellitus, Eye Disorder, GERD/Reflux, Hyperlipidemia, Hypertension, Myocardial Infarction ([place]), Osteoarthritis (OA), Renal Disease, Respiratory Disorder, Sleep Apnea/CPAP/BIPAP, Vascular Disorder Additional Past Medical History / Comment(s): Poor circulation in hands and le gs/feet. 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 does not wear cpap Last Myocardial Infarction Date:: 2014 History of Any Multi-Drug Resistant Organisms: MRSA Date of last positivie culture/infection: approx 2015 MDRO Source:: right foot Past Surgical History: Heart Catheterization With Stent, Hernia Repair, Tonsillectomy Additional Past Surgical History / Comment(s): Right foot 3rd and 4th AND 5TH toes and area of foot amputated, cyst on scrotum removed. partial amp lt foot but had non healing wound which resulted in lt bka. matilde cataracts removed-has lens implants. x3 rt inguinal hernia sx and an umb hernia repair. L BELOW KNEE AMPUTATION , COLONOSCOPY Stent LADx1 03/09/2024-(R) Groin manual pull Past Anesthesia/Blood Transfusion Reactions: No Reported Reaction Additional Past Anesthesia/Blood Transfusion Reaction / Comment(s): States he was in the ICU after his surgery on his toes, but does not know why. Date of Last Stent Placement:: 05/2015 APPROX Past Psychological History: Anxiety, Depression, Panic Disorder Additional Psychological History / Comment(s): Single, has been in extended care for several months and is now just gone home. Since arriving home he denied having increasing difficulties with his limbs, his glucose and his tobacco use. Smoking Status: Current some day smoker Past Alcohol Use History: None Reported Additional Past Alcohol Use History / Comment(s): few ciagarettets a day Past Drug Use History: Marijuana Additional Drug Use History / Comment(s): past marijuana use, THC OIL - Past Family History Father History Unknown: Yes Mother History Unknown: Yes Family Medical History: Cancer, Coronary Artery Disease (CAD) Additional Family Medical History / Comment(s): benign Brain tumor, Berhane syndrome Sister(s) Family Medical History: No Reported History Medications and Allergies Home Medications Medication Instructions Recorded Confirmed Type Tamsulosin [Flomax] 0.4 mg PO DAILY 04/14/18 04/30/24 History Albuterol Inhaler [Ventolin Hfa 1 - 2 puff INHALATION RT-Q6H PRN 03/09/19 04/30/24 History Inhaler] Pantoprazole [Protonix] 80 mg PO HS 03/11/22 04/30/24 History oxyCODONE-APAP 10-325MG [Percocet 1 tab PO Q6H PRN 03/11/22 04/30/24 History 10-325 mg] FLUoxetine HCL [PROzac] 40 mg PO BID 09/11/23 04/30/24 History Insulin NPH/Reg Insulin 70/30 See Protocol SQ AC-TID 09/11/23 04/30/24 History [humuLIN 70/30 VIAL] amLODIPine [Norvasc] 5 mg PO BID #60 tab 09/12/23 04/30/24 Rx Aspirin EC [Ecotrin Low Dose] 81 mg PO HS 12/16/23 04/30/24 History Loratadine 10 mg PO HS 12/16/23 04/30/24 History Nitroglycerin Sl Tabs [Nitrostat] 0.4 mg SL Q5M PRN 12/16/23 04/30/24 History Torsemide [Demadex] 20 mg PO BID 12/16/23 04/30/24 History allopurinoL [Zyloprim] 100 mg PO DAILY 12/16/23 04/30/24 History Atorvastatin [Lipitor] 40 mg PO HS #30 tab 12/25/23 04/30/24 Rx Metoprolol Succinate (ER) [Toprol 100 mg PO DAILY #30 tab 12/25/23 04/30/24 Rx XL] Ticagrelor [Brilinta] 90 mg PO BID #180 tab 03/10/24 04/30/24 Rx Isosorbide Mononitrate ER [Imdur] 90 mg PO DAILY tab 04/17/24 04/30/24 Rx cefTRIAXone [Rocephin] 2 gm IVPB Q24H each 04/17/24 04/30/24 Rx Psyllium Husk 100% [Metamucil 6 gm PO DAILY PRN 04/30/24 04/30/24 History Packet] Vancomycin 1 dose IVPB DIRECTED 04/30/24 04/30/24 History hydrALAZINE HCL [Apresoline] 50 mg PO BID PRN 04/30/24 04/30/24 History Allergies Allergy/AdvReac Type Severity Reaction Status Date / Time codeine AdvReac headache, Verified 04/30/24 14:59 DIZZY, N/V hydrocodone [From Vicodin] AdvReac Nausea & Verified 04/30/24 14:59 Vomiting tramadol AdvReac Nausea & Verified 04/30/24 14:59 Vomiting Physical Exam Vitals: Vital Signs Temp Pulse Pulse Resp BP BP Pulse Ox 05/01/24 06:45 97.7 F 69 17 151/82 98 05/01/24 04:19 19 05/01/24 01:38 98.1 F 66 18 144/69 98 04/30/24 20:19 97.4 F L 72 18 124/72 96 04/30/24 20:04 97.4 F L 72 18 124/72 96 04/30/24 19:32 65 18 136/83 95 04/30/24 17:27 97.7 F 65 18 122/64 97 04/30/24 17:07 97.7 F 65 18 139/82 04/30/24 16:57 98 F 75 20 97/69 04/30/24 13:31 97.5 F L 65 20 113/54 94 L Intake and Output 04/30/24 05/01/24 05/01/24 22:59 06:59 14:59 Intake Total 310 480 Balance 310 480 Intake: Oral 480 Blood Product 310 Rc As-1 Unit 310 [id number] Other: Voiding Method Toilet # Voids 1 # Bowel Movements 3 Weight 118.841 kg patient is awake, comfortable, no acute distress Examination of the heart S1 and S2 Examination lungs bilateral breath sounds are heard Abdomen is soft nontender obese Examination lower extremities shows left BKA, right foot is wrapped BAR HOST/HOSTESS exam grossly intact Results - Lab Results Most recent lab results Calcium 7.8 mg/dL (8.7-10.3) L 05/01/24 07:53 Phosphorus 4.7 mg/dL (2.5-4.5) H 04/30/24 14:59 Magnesium 1.7 mg/dL (1.5-2.4) 05/01/24 07:53 05/01/24 07:53 05/01/24 07:53 Assessment and Plan Assessment: 1. End-stage renal disease on peritoneal dialysis 2. Volume overload maintained on IV Lasix and PD exchanges have been adjusted 3. Anemia with no evidence of active bleeding but underlying anemia of chronic disease and resistance to GISSELLE due to underlying infection. Status post packed RBCs transfusion 4. Chronic right foot wound with history of previous toe amputation Plan: switch to all 2.5% exchanges. May continue with IV Lasix during hospitalization Add Akash Nobles to discharge patient from nephrology standpoint.
[2024-05-01 13:17] VITALS: BP 120/73; PULSE 65; RESP 18; TEMP 97.6
[2024-05-01] MEDS: FUROSEMIDE 10 MG/ML 10 ML VIAL IV ONE (13:38)
[2024-05-01] MEDS: DARBEPOETIN ALFA 60 MCG/0.3 ML SYRINGE SQ SCH (13:38)
[2024-05-01] MEDS ORDERED: PANTOPRAZOLE 40 MG TABLET PO SCH (17:30)
--- NOTE | 2024-05-01 19:32 | P.DS ---
Providers Date of admission: 04/30/24 14:24 Expected date of discharge: 05/01/24 Attending physician: Ruben Paz Consults: 04/30/24 14:22 Consult Physician Routine Consulting Provider: Mino Denton Consult Reason/Comments: foot wound Do you want consulting provider notified?: Already Contacted Consult Physician Routine Consulting Provider: Marci Tamez Consult Reason/Comments: esrd on pd Do you want consulting provider notified?: Yes Primary care physician: L[facility]pez [facility] Course: 58-year-old male was sent in from wound care clinic because of anemia with hemoglobin around 6.8 patient denied any blood in the stools dark stools mopped assist. Patient has normal MCV of around 90 patient had history of hemorrhoids in the past with bleeding in the past. Patient does have history of end-stage renal disease on peritoneal dialysis patient also has extensive history of diabetes mellitus diabetic foot infection patient has an amputation of the right foot for which patient follows in wound care clinic because of the wounds in the right foot it does not appear to be infected. Patient also has a left below- knee amputation. Patient is also end-stage disease on peritoneal dialysis. Patient does have history of congestive heart failure with EF of around 45% patient appears to be clinically volume overloaded patient does have distended abdomen as well may have ascites.. May 01, 2024: Pleasant 58-year-old patient follows with Dr. Harris. Chronic medical conditions include CAD, COPD, diabetes, GERD, hyperlipidemia, hypertension, end-stage kidney disease with hemodialysis, obstructive sleep apnea, PAD, left foot BKA with the prosthesis, home oxygen 2.5 L at night. CAD with stent right foot second, third fourth and fifth toe amputated. Patient is on peritoneal dialysis. Patient follows at the wound care, Dr. Denton in the hospital from March 31 - April 10. infected callus removed from the right foot. Subsequently draining pus. Back to the OR for deep I&D. Deep tissue cultures positive for Proteus vulgaris. PICC line. Discharge on IV vancomycin and Rocephin. Patient was recently in the hospital with anemia. Was transfused blood. Discharged in April 17 with a hemoglobin of 7.4 This admission patient received a unit of blood. Hemoglobin is now 7.7. GI service is not available in the hospital. To follow-up outpatient. Spoke with Dr. Denton. Wound is healing well. He will do dressing change. Follow-up with the wound center. Patient to continue antibiotics per ID from the last ad mission. Patient has been rather sleepy this morning and had to come back to talk to message received morphine in the early hours. Discussed with patient. Later I called patient's Naomy at home. Patient due to have a colonoscopy at [facility]. Also told him to follow-up with hematology and she will make appointment through her PCP Dr. Harris. Discussion and discharge planning more than 35 minutes Social history: Lives with his . Smokes about half a pack a day for many years-recently down to few cigarettes a day. No alcohol. Did use marijuana in the past. Physical examination: VITAL SIGNS: 97.6, 65, 18, 120 x 73, 95% on 3 L GENERAL: Sitting up in bed, comfortable EYES: Pupils equal. Conjunctiva julieta l. HEENT: External appearance of nose and ears normal, oral cavity grossly normal. NECK: JVD unable to assess; masses not palpable. HEART: First and second heart sounds are normal; edema present LUNGS:[ Respiratory rate-increased, decreased breath sounds some crackles ABDOMEN: Soft, nontender, liver spleen not palpable, no masses palpable. PSYCH: AOx3, mood affect, slightly anxious MUSCULOSKELETAL: Left BKA. With prosthesis. Right foot second third and fourth toe amputated. Dressing INVESTIGATIONS, reviewed in the clinical context: May 01: Hemoglobin 7.7 Assessment plan: -Symptomatic anemia. Patient received a unit of blood. No GI services available in the hospital. Patient is pending a colonoscopy at [facility]. Patient to follow-up with hematology outpatient. Discussed with patient's Naomy -Recent sepsis secondary to right foot infection with chronic wound that is being followed at the wound care center. Is followed by Dr. Denton from vascular.: Initial wound cultures: Proteus vulgaris, Klebsiella oxytoca, MRSA Deep wound cultures postsurgical: Proteus vulgaris . IV ceftriaxone per ID, vancomycin-total r 4 weeks of the same. Will be follow-up with Dr. Zambrano has a PICC line -chronic right foot wound which is being followed at wound care center., From underlying PAD Dr. Denton from vascular-carried out recent deep wound I&D right foot deep tissue cultures: Proteus vulgaris Wound VAC-now discontinued On IV vancomycin IV ceftriaxone Follow-up with Dr. Denton at the wound care center -Acute on chronic congestive heart failure exacerbation from systolic dysfunction EF 45%: Dialysis peritoneal. Demadex -End-stage kidney disease on peritoneal dialysis Nephrology following -Anemia of chronic kidney disease Aranesp -Essential hypertension Toprol-XL 100 mg a day. Amlodipine 5 mg twice daily. Hydralazine-50 mg twice daily -Diabetes mellitus type 2, chronically insulin, uncontrolled with hyperglycemia Follow Accu-Cheks with sliding scale insulin. NovoLog 70/30 18 units AC twice daily. 6 units with lunch. -BPH Flomax -Hyperlipidemia Lipitor 40mg nightly -Obesity BMI 38 Weight loss measures -Depression anxiety Prozac 40 mg twice daily -Diabetic peripheral neuropathy Neurontin 400 mg nightly -COPD in a current smoker inhalers -Chronic nicotine dependence cigarette smoker. Currently down to about 2 cigarettes a day Nicotine patch -Left below-knee amputation with a prosthesis. Right foot second third and fourth toe amputation. -Full code Disposition: Home Past Medical History Past Medical History: Coronary Artery Disease (CAD), Heart Failure, COPD, Diabetes Mellitus, Eye Disorder, GERD/Reflux, Hyperlipidemia, Hypertension, Myocardial Infarction ([place]), Osteoarthritis (OA), Renal Disease, Respiratory Disorder, Sleep Apnea/CPAP/BIPAP, Vascular Disorder Additional Past Medical History / Comment(s): Poor circulation in hands and legs/feet. 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 does not wear cpap Last Myocardial Infarction Date:: 2014 History of Any Multi-Drug Resistant Organisms: MRSA Date of last positivie culture/infection: approx 2016 MDRO Source:: right foot Past Surgical History: Heart Catheterization With Stent, Hernia Repair, Tonsillectomy Additional Past Surgical History / Comment(s): Right foot 3rd and 4th AND 5TH toes and area of foot amputated, cyst on scrotum removed. partial amp lt foot but had non healing wound which resulted in lt bka. matilde cataracts removed-has lens implants. x3 rt inguinal hernia sx and an umb hernia repair. L BELOW KNEE AMPUTATION , COLONOSCOPY Stent LADx1 03/09/2024-(R) Groin manual pull Past Anesthesia/Blood Transfusion Reactions: No Reported Reaction Additional Past Anesthesia/Blood Transfusion Reaction / Comment(s): States he was in the ICU after his surgery on his toes, but does not know why. Date of Last Stent Placement:: 05/2015 APPROX Past Psychological History: Anxiety, Depression, Panic Disorder Smoking Status: Current some day smoker - Past Family History Father History Unknown: Yes Mother History Unknown: Yes Family Medical History: Cancer, Coronary Artery Disease (CAD) Additional Family Medical History / Comment(s): benign Brain tumor, Denbo syndrome Sister(s) Family Medical History: No Reported History Medications and Allergies Home Medications Medication Instructions Recorded Confirmed Type Tamsulosin [Flomax] 0.4 mg PO DAILY 04/14/18 04/12/24 History Albuterol Inhaler [Ventolin Hfa 1 - 2 puff INHALATION RT-Q6H PRN 03/09/19 History Inhaler] Isosorbide Mononitrate ER [Imdur] 60 mg PO DAILY 03/11/22 04/12/24 History Pantoprazole [Protonix] 80 mg PO HS 03/11/22 04/12/24 History oxyCODONE-APAP 10-325MG [Percocet 1 tab PO Q6H PRN 03/11/22 04/12/24 History 10-325 mg] FLUoxetine HCL [PROzac] 40 mg PO BID 09/11/23 04/12/24 History Gabapentin [Neurontin] 400 mg PO HS 09/11/23 04/12/24 History Insulin NPH/Reg Insulin 70/30 See Protocol SQ AC-TID 09/11/23 04/12/24 History [humuLIN 70/30 VIAL] amLODIPine [Norvasc] 5 mg PO BID #60 tab 09/12/23 04/12/24 Rx Aspirin EC [Ecotrin Low Dose] 81 mg PO HS 12/16/23 04/12/24 History Loratadine 10 mg PO HS 12/16/23 04/12/24 History Nitroglycerin Sl Tabs [Nitrostat] 0.4 mg SL Q5M PRN 12/16/23 04/12/24 History Torsemide [Demadex] 20 mg PO BID 12/16/23 04/12/24 History allopurinoL [Zyloprim] 100 mg PO DAILY 12/16/23 04/12/24 History Atorvastatin [Lipitor] 40 mg PO HS #30 tab 12/25/23 04/12/24 Rx Metoprolol Succinate (ER) [Toprol 100 mg PO DAILY #30 tab 12/25/23 04/12/24 Rx XL] Ticagrelor [Brilinta] 90 mg PO BID #180 tab 03/10/24 04/12/24 Rx Psyllium Husk 100% [Metamucil 6 gm PO DAILY packet 04/10/24 04/12/24 Rx Packet] hydrALAZINE HCL [Apresoline] 50 mg PO BID #60 tab 04/10/24 04/12/24 Rx Insuln Asp Prt/Insulin Aspart 12 unit SQ AC-LUNCH each 04/17/24 Rx [NovoLOG MIX 70-30 VIAL] Insuln Asp Prt/Insulin Aspart 22 unit SQ AC-BID each 04/17/24 Rx [NovoLOG MIX 70-30 VIAL] Isosorbide Mononitrate ER [Imdur] 90 mg PO DAILY tab 04/17/24 Rx cefTRIAXone [Rocephin] 2 gm IVPB Q24H each 04/17/24 Rx Allergies Allergy/AdvReac Type Severity Reaction Status Date / Time codeine AdvReac headache, Verified 04/30/24 14:59 DIZZY, N/V hydrocodone [From Vicodin] AdvReac Nausea & Verified 04/30/24 14:59 Vomiting tramadol AdvReac Nausea & Verified 04/30/24 14:59 Vomiting Physical Exam Vitals: Vital Signs Temp Pulse Resp BP Pulse Ox 04/30/24 13:31 97.5 F L 65 20 113/54 94 L Intake and Output 04/30/24 04/30/24 04/30/24 06:59 14:59 22:59 Other: Weight 118.841 kg Plan - Discharge Summary Discharge Rx Participant: No New Discharge Prescriptions: Continue Tamsulosin [Flomax] 0.4 mg PO DAILY Albuterol Inhaler [Ventolin Hfa Inhaler] 1 - 2 puff INHALATION RT-Q6H PRN PRN Reason: Shortness Of Breath Pantoprazole [Protonix] 80 mg PO HS amLODIPine [Norvasc] 5 mg PO BID #60 tab Loratadine 10 mg PO HS Atorvastatin [Lipitor] 40 mg PO HS #30 tab Ticagrelor [Brilinta] 90 mg PO BID #180 tab Isosorbide Mononitrate ER [Imdur] 90 mg PO DAILY tab Psyllium Husk 100% [Metamucil Packet] 6 gm PO DAILY PRN PRN Reason: Constipation Vancomycin 1 dose IVPB DIRECTED oxyCODONE-APAP 10-325MG [Percocet 10-325 mg] 1 tab PO Q6H PRN PRN Reason: Pain FLUoxetine HCL [PROzac] 40 mg PO BID Insulin NPH/Reg Insulin 70/30 [humuLIN 70/30 VIAL] See Protocol SQ AC-TID allopurinoL [Zyloprim] 100 mg PO DAILY Torsemide [Demadex] 20 mg PO BID Aspirin EC [Ecotrin Low Dose] 81 mg PO HS Nitroglycerin Sl Tabs [Nitrostat] 0.4 mg SL Q5M PRN PRN Reason: Chest Pain Metoprolol Succinate (ER) [Toprol XL] 100 mg PO DAILY #30 tab cefTRIAXone [Rocephin] 2 gm IVPB Q24H each hydrALAZINE HCL [Apresoline] 50 mg PO BID PRN PRN Reason: Blood Pressure - High Discharge Medication List Tamsulosin [Flomax] 0.4 mg PO DAILY 04/14/18 [History] Albuterol Inhaler [Ventolin Hfa Inhaler] 1 - 2 puff INHALATION RT-Q6H PRN 03/09/19 [History] Pantoprazole [Protonix] 80 mg PO HS 03/11/22 [History] oxyCODONE-APAP 10-325MG [Percocet 10-325 mg] 1 tab PO Q6H PRN 03/11/22 [History] FLUoxetine HCL [PROzac] 40 mg PO BID 09/11/23 [History] Insulin NPH/Reg Insulin 70/30 [humuLIN 70/30 VIAL] See Protocol SQ AC-TID 04/26 [History] amLODIPine [Norvasc] 5 mg PO BID #60 tab 09/12/23 [Rx] Aspirin EC [Ecotrin Low Dose] 81 mg PO HS 12/16/23 [History] Loratadine 10 mg PO HS 12/16/23 [History] Nitroglycerin Sl Tabs [Nitrostat] 0.4 mg SL Q5M PRN 12/16/23 [History] Torsemide [Demadex] 20 mg PO BID 12/16/23 [History] allopurinoL [Zyloprim] 100 mg PO DAILY 12/16/23 [History] Atorvastatin [Lipitor] 40 mg PO HS #30 tab 12/25/23 [Rx] Metoprolol Succinate (ER) [Toprol XL] 100 mg PO DAILY #30 tab 12/25/23 [Rx] Ticagrelor [Brilinta] 90 mg PO BID #180 tab 03/10/24 [Rx] Isosorbide Mononitrate ER [Imdur] 90 mg PO DAILY tab 04/17/24 [Rx] cefTRIAXone [Rocephin] 2 gm IVPB Q24H each 04/17/24 [Rx] Psyllium Husk 100% [Metamucil Packet] 6 gm PO DAILY PRN 04/30/24 [History] Vancomycin 1 dose IVPB DIRECTED 04/30/24 [History] hydrALAZINE HCL [Apresoline] 50 mg PO BID PRN 04/30/24 [History] Follow up Appointment(s)/Referral(s): López Harris DO [Primary Care Provider] - 1-2 days (office will call to schedule an appointment ) Activity/Diet/Wound Care/Special Instructions: f/u at wound care center with dr denton dc after seen by dr denton Discharge Disposition: HOME SELF-CARE
[2024-05-01] MEDS ORDERED: LORATADINE 10 MG TAB PO SCH (21:00)
[2024-05-01] MEDS ORDERED: ATORVASTATIN 40 MG TAB PO SCH (21:00)
--- NOTE | 2024-05-01 23:55 | PN ---
PROGRESS NOTE A 58-year-old gentleman with history of diabetes. The patient had a ray amputation of the right foot toes. The patient came yesterday to the Wound Clinic, was very short of breath with low hemoglobin. The patient was sent to the emergency room and had a blood transfusion. Today on arrival, the patient is stable. The patient has a wound on the right foot post toe amputation. We changed the dressing. We used Medihoney. We used Santyl cream and dressing was applied. The patient is on IV antibiotic under care of Infectious Disease. If the patient goes home, we will follow up in the wound clinic on Tuesday. [email or web address] / IJN: [id number] /
== END 2024-05-01 15:35 | disposition home or self-care (01) ==
LOC: EC 13:22 → 4SSUR 14:24
PROVIDERS: ADMIT Hospitalist; ATTEND Hospitalist
DX: N18.6 End stage renal disease (principal); D63.1 Anemia in chronic kidney disease; I13.2 Hypertensive heart and chronic kidney disease with heart failure and with stage 5 chronic kidney disease, or end stage renal disease; Z99.2 Dependence on renal dialysis; I50.23 Acute on chronic systolic (congestive) heart failure; E11.22 Type 2 diabetes mellitus with diabetic chronic kidney disease; E11.40 Type 2 diabetes mellitus with diabetic neuropathy, unspecified; E11.51 Type 2 diabetes mellitus with diabetic peripheral angiopathy without gangrene; E66.9 Obesity, unspecified; Z68.38 Body mass index [BMI] 38.0-38.9, adult; E78.5 Hyperlipidemia, unspecified; F32.A Depression, unspecified; F41.0 Panic disorder [episodic paroxysmal anxiety]; G47.33 Obstructive sleep apnea (adult) (pediatric); I25.10 Atherosclerotic heart disease of native coronary artery without angina pectoris; I25.2 Old myocardial infarction; J44.9 Chronic obstructive pulmonary disease, unspecified; K21.9 Gastro-esophageal reflux disease without esophagitis; F17.210 Nicotine dependence, cigarettes, uncomplicated; N40.0 Benign prostatic hyperplasia without lower urinary tract symptoms; R14.0 Abdominal distension (gaseous); Z79.02 Long term (current) use of antithrombotics/antiplatelets; Z79.4 Long term (current) use of insulin; Z79.899 Other long term (current) drug therapy; Z95.5 Presence of coronary angioplasty implant and graft; Z79.82 Long term (current) use of aspirin; Z88.5 Allergy status to narcotic agent; Z82.49 Family history of ischemic heart disease and other diseases of the circulatory system
CPT/HCPCS: 96376 ×2; 96366 ×2; 96372 ×2; 96365; 96375; 99285; 86900; 86901; 83880; 80053; 83735; 84100; 85025; 85027; 86850; 86920; 71046; G0378 ×2; P9016; J3370 ×2; J2270 ×2; J1644 ×2; J1940 ×3; A4722; J0881

== ENCOUNTER 2025-01-12 13:36 | Emergency (ER) | payer MEDICARE ==
[2025-01-12 13:39] VITALS: RESP 16
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
[2025-01-12 15:16] VITALS: TEMP 98
[2025-01-12] MEDS: cefTRIAXone 1,000 MG VIAL (IM USE) IM STA (15:50)
[2025-01-12 15:55] VITALS: BP 142/86; PULSE 64
== END 2025-01-12 15:53 | disposition home or self-care (01) ==
LOC: EC 13:36
DX: T85.611A Breakdown (mechanical) of intraperitoneal dialysis catheter, initial encounter (principal); Z88.8 Allergy status to other drugs, medicaments and biological substances; Z88.5 Allergy status to narcotic agent; F17.200 Nicotine dependence, unspecified, uncomplicated
CPT/HCPCS: 99283; 96372; J0696